=== PATIENT | female | born 1955 | race Caucasian/White ===

== ENCOUNTER → 2017-06-27 13:18 | Outpatient (CLI) | payer OTHER, SELFPAY ==
[2017-06-27 16:03] LABS: Hemoglobin A1c 8.1 % (4.2-6.3)
[2017-06-27 16:30] LABS: Anion Gap 10 (5-15); BUN 16 mg/dL (7-18); BUN/Creat Ratio 17.1 RATIO (10-20); Calcium,Total 8.9 mg/dL (8.5-10.1); Chloride 101 mmol/L (98-107); Creatinine, Serum 0.94 mg/dL (0.55-1.02); EST Glomerular Filtration Rate 64 mL/min (>60); Est Glom Filt Rate - Afr Amer 78 mL/min (>60); Glucose 192 mg/dL (70-110); Potassium 3.7 mmol/L (3.5-5.1); Sodium Level 137 mmol/L (136-145); T4 Free Direct 0.77 ng/dL (0.76-1.46); Thyroid Stim Hormone (TSH) 4.91 uIU/mL (0.358-3.74); Vitamin D,25 Hydroxy 28.5 ng/mL
== END ==
PROVIDERS: Family Provider Family Medicine; PCP Family Medicine; Visit Provider Family Medicine
DX: E55.9 Vitamin D deficiency, unspecified (principal); E03.9 Hypothyroidism, unspecified; R73.01 Impaired fasting glucose
CPT/HCPCS: 36415; 80048; 82306; 83036; 84439; 84443

== ENCOUNTER → 2017-09-03 08:34 | Outpatient (CLI) | payer OTHER, SELFPAY ==
[2017-09-03 12:53] LABS: T4 Free Direct 1.11 ng/dL (0.76-1.46); Thyroid Stim Hormone (TSH) 0.29 uIU/mL (0.358-3.74)
== END ==
PROVIDERS: Family Provider Family Medicine; PCP Family Medicine; Visit Provider Family Medicine
DX: E03.9 Hypothyroidism, unspecified (principal)
CPT/HCPCS: 36415; 84439; 84443

== ENCOUNTER → 2018-02-03 06:41 | Outpatient (CLI) | payer OTHER, SELFPAY ==
--- NOTE | 2018-02-03 12:24 | PFTCOMP ---
COMPLETE PULMONARY FUNCTION TEST INTERPRETATION Brief HPI: Patient is a 62 year old female, currently under the care of myself, who presents to [facility] for complete pulmonary function tests secondary to diagnosis of dyspnea. Respiratory therapist reports good effort and reproducible results. Interpretation: Forced expiration spirometry shows no large airways obstructive ventilatory defect with an FEV1 of 87% predicted. There is no significant bronchodilator response by strict ATS criteria. Spirograms are of good quality and plateau slowly, indicating slowly emptying areas of the lungs. The respiratory flow volume loop shows decreased expiratory flow rates at high lung volumes consistent with small airways obstruction. Lung volumes by body plethysmography show a normal total lung capacity at 4.49 L, 88% predicted. All other lung volumes are within normal limits. Diffusion capacity by carbon monoxide is normal at 74% predicted. The airway resistance is normal. Compared to previous pulmonary function tests from 10/18/2016, there has been no significant change. Impression: These pulmonary function tests are grossly within normal limits. There is some small airways obstruction that appears to be relieved by albuterol.
== END ==
PROVIDERS: Family Provider Family Medicine; PCP Family Medicine; Visit Provider Nurse Practitioner Acute Care
DX: R06.02 Shortness of breath (principal)
CPT/HCPCS: 94060; 94726; 94729

== ENCOUNTER → 2018-02-04 08:53 | Outpatient (CLI) | payer OTHER, SELFPAY ==
[2018-02-04 09:55] VITALS: PULSE 102; PULSE 79; PULSE 82; PULSE 93; PULSE 96; PULSE 98; PULSE 99; O2SAT 92; O2SAT 94; O2SAT 95; O2SAT 96; O2SAT 98
--- NOTE | 2018-02-04 11:11 | PCM.PSN.6M ---
PSN 6 Minute Walk Test - 6 Minute Walk Test 6 Minute Walk Test: 6 Minute Walk Test PSN:6-Minute Walk Test Start: 02/04/18 09:55 Freq: Status: Active Protocol: RESP.6MINW Document 02/04/18 09:55 ANNETTE (Rec: 02/04/18 09:58 ANNETTE [id number]) 6 Minute Walk Test Date Performed 02/04/18 Time Performed 09:05 Height 5 ft 4.5 in Weight: 92.079 kg Weight in Pounds 203.[address]: Angela Linton Assistive device used: None Pre-test Oxygen Delivery Method Room Air Pulse Ox (%) 96 Pulse Rate (60-100 beats/min) 79 Dyspnea Janet Scale (0-10) 0.5 Exertion Janet Scale (6-20) 6 1st minute Oxygen Delivery Method Room Air Pulse Ox (%) 94 Pulse Rate (60-100 beats/min) 93 2nd minute Oxygen Delivery Method Room Air Pulse Ox (%) 94 Pulse Rate (60-100 beats/min) 96 3rd minute Oxygen Delivery Method Room Air Pulse Ox (%) 92 Pulse Rate (60-100 beats/min) 98 4th minute Oxygen Delivery Method Room Air Pulse Ox (%) 92 Pulse Rate (60-100 beats/min) 99 5th minute Oxygen Delivery Method Room Air Pulse Ox (%) 94 Pulse Rate (60-100 beats/min) 102 H 6th minute Oxygen Delivery Method Room Air Pulse Ox (%) 95 Pulse Rate (60-100 beats/min) 102 H Dyspnea Janet Scale (0-10) 3 Exertion Janet Scale (6-20) 12 Post-test Oxygen Delivery Method Room Air Pulse Ox (%) 98 Pulse Rate (60-100 beats/min) 82 Full Laps Walked 17 Partial Lap, Number of Tiles Walked 32 Total Distance Walked (ft) 1035 - Interpretation Interpretation: The patient was able to ambulate 1035 feet over the course of 6 minutes on room air with no assistive devices or breaks. The patient did have significant desaturation from 96% at baseline to as low as 92%. No significant tachycardia was noted. - Recommendations Recommendations: No supplemental oxygen is indicated at this time.
== END ==
PROVIDERS: Family Provider Family Medicine; PCP Family Medicine; Visit Provider Nurse Practitioner Acute Care
DX: R06.02 Shortness of breath (principal)
CPT/HCPCS: 93306; 94618

== ENCOUNTER → 2018-04-20 10:06 | Outpatient (CLI) | payer OTHER, SELFPAY ==
[2018-04-20 12:43] LABS: Absolute Lymphocyte Count 1.78 X10^3/ul (0.83-4.51); Absolute Neutrophil Count 3.5 X10^3/uL (2.0-7.7); Basophil# 0.02 X10^3/uL; Basophil% 0.3 % (0-1); Eosinophil# 0.12 X10^3/uL; Hematocrit 41.4 % (37-47); Hemoglobin 13.6 g/dl (12.0-15.0); Lymphocyte # 1.78 X10^3/ul (4.0); Lymphocyte % 29.9 % (19-41); Mean Corp Hgb Conc 32.9 g/gl (32-36); Mean Corpuscular Hgb 30.7 pg (27.0-32.0); Mean Corpuscular Volume 93.5 fL (81-99); Mean Platelet Vol. 11.9 fl (6.2-12.0); Monocyte# 0.59 X10^3/uL; Monocyte% 9.9 % (0-10); Neutrophil # 3.45 X10^3/uL (2.7-7.7); Neutrophil % 57.9 % (47-70); Platelet Count 294 K/mm3 (150-450); RBC Distribution Width CV 12.7 % (11.6-14.6); RBC Distribution Width SD 42.6 fl (35.1-43.9); Red Blood Count 4.43 M/mm3 (4.2-5.4)
[2018-04-20 12:56] LABS: POSITIVE COUNT NO; POSITIVE DIFFERENTIAL NO; POSITIVE MORPHOLOGY NO
[2018-04-20 13:01] LABS: Vitamin D,25 Hydroxy 91.8 ng/mL (29.95-100.01)
[2018-04-20 13:02] LABS: Anion Gap 10 (5-15); BUN 21 mg/dL (7-18); Chloride 105 mmol/L (98-107); Creatinine, Serum 0.91 mg/dL (0.55-1.02); EST Glomerular Filtration Rate 66 mL/min (>60); Est Glom Filt Rate - Afr Amer 80 mL/min (>60); Glucose 103 mg/dL (74-106); Potassium 4.4 mmol/L (3.5-5.1); Sodium Level 142 mmol/L (136-145); T4 Free Direct 1.41 ng/dL (0.76-1.46); Thyroid Stim Hormone (TSH) < 0.01 uIU/mL (0.358-3.74)
== END ==
PROVIDERS: Family Provider Family Medicine; PCP Family Medicine; Visit Provider Family Medicine
DX: E11.9 Type 2 diabetes mellitus without complications (principal); E03.9 Hypothyroidism, unspecified; E55.9 Vitamin D deficiency, unspecified
CPT/HCPCS: 36415; 80048; 82306; 84439; 84443; 85025

== ENCOUNTER → 2018-06-08 08:13 | Outpatient (CLI) | payer OTHER, SELFPAY ==
[2018-06-08 12:23] LABS: Thyroid Stim Hormone (TSH) < 0.01 uIU/mL (0.358-3.74)
== END ==
PROVIDERS: Family Provider Family Medicine; PCP Family Medicine; Visit Provider Family Medicine
DX: E03.9 Hypothyroidism, unspecified (principal)
CPT/HCPCS: 36415; 84443

== ENCOUNTER → 2018-07-20 09:57 | Outpatient (CLI) | payer OTHER, SELFPAY ==
[2018-07-20 12:56] LABS: Vitamin D,25 Hydroxy 54.1 ng/mL (29.95-100.01)
[2018-07-20 13:21] LABS: Anion Gap 5 (5-15); BUN 16 mg/dL (7-18); BUN/Creat Ratio 15.2 RATIO (10-20); Chloride 105 mmol/L (98-107); Creatinine, Serum 1.05 mg/dL (0.55-1.02); EST Glomerular Filtration Rate 56 mL/min (>60); Est Glom Filt Rate - Afr Amer 68 mL/min (>60); Glucose 98 mg/dL (74-106); Potassium 4.2 mmol/L (3.5-5.1); Sodium Level 137 mmol/L (136-145); T4 Free Direct 0.85 ng/dL (0.76-1.46); Thyroid Stim Hormone (TSH) 0.29 uIU/mL (0.358-3.74)
== END ==
PROVIDERS: Family Provider Family Medicine; PCP Family Medicine; Visit Provider Family Medicine
DX: E03.9 Hypothyroidism, unspecified (principal); E11.9 Type 2 diabetes mellitus without complications; E55.9 Vitamin D deficiency, unspecified
CPT/HCPCS: 36415; 80048; 82306; 84439; 84443

== ENCOUNTER → 2018-11-24 14:19 | Outpatient (CLI) | payer OTHER, SELFPAY ==
[2018-08-03 08:28] VITALS: BMI 34.0
--- NOTE | 2018-11-24 14:22 | BI_ITS ---
MAMMOGRAPHY - BILATERAL SCREENING 3-D TOMOSYNTHESIS REASON FOR EXAM: Female, 63 years old. Bilateral Screening 3-D tomosynthesis PERTINENT HISTORY: No significant family history. TECHNIQUE: 2-D mammograms and 3-D Tomosynthesis of the breast (s) were performed. CAD was performed. COMPARISON: March 01, 2016, October 06, 2014 FINDINGS: The breast composition is composed of scattered fibroglandular density. Scattered benign calcifications are seen. No dense spiculated masses or suspicious microcalcifications are identified. No architectural distortion is identified. There is no skin thickening or retraction. There are stable lymph nodes. There has been no significant change since the prior study. BI/SCREEN MAMM (CAD) W/HENRRY BILAT IMPRESSION: No mammographic signs of malignancy. Routine yearly mammograms recommended. ASSESSMENT CATEGORY: BIRADS Category 2: Benign. A letter regarding these results will be sent to the patient by the facility within 30 days. FOLLOW UP RECOMMENDATION: Yearly follow up mammogram recommended. (A) Approximately 10% of breast cancers are not detected by mammography. A normal mammogram should not delay biopsy of a clinically suspicious abnormality. Electronically Signed: Herb Feliz MD at 17:44 EDT , Service support ,
== END ==
PROVIDERS: Family Provider Family Medicine; PCP Family Medicine; Referring Provider Family Medicine; Visit Provider Family Medicine
DX: Z12.31 Encounter for screening mammogram for malignant neoplasm of breast (principal)
CPT/HCPCS: 77063; 77067

== ENCOUNTER → 2019-03-08 20:07 | Outpatient (CLI) | payer OTHER, SELFPAY ==
[2019-02-08 10:01] VITALS: BMI 34.0
== END ==
PROVIDERS: Family Provider Family Medicine; PCP Family Medicine; Referring Provider Internal Medicine Critical Care Medicine; Visit Provider Internal Medicine Critical Care Medicine
DX: G47.33 Obstructive sleep apnea (adult) (pediatric) (principal)
CPT/HCPCS: 95811

== ENCOUNTER → 2019-04-05 10:37 | Outpatient (CLI) | payer OTHER, SELFPAY ==
[2019-02-08 10:01] VITALS: BMI 34.0
== END ==
PROVIDERS: Family Provider Family Medicine; PCP Family Medicine; Referring Provider Nurse Practitioner Acute Care; Visit Provider Nurse Practitioner Acute Care
DX: Z46.89 Encounter for fitting and adjustment of other specified devices (principal)

== ENCOUNTER → 2019-08-10 09:42 | Outpatient (CLI) | payer OTHER, SELFPAY ==
[2019-05-10 07:39] VITALS: BMI 34.0
[2019-08-10 12:28] LABS: Absolute Lymphocyte Count 1.72 X10^3/uL (0.83-4.51); Absolute Neutrophil Count 3.7 X10^3/uL (2.0-7.7); Basophil# 0.04 X10^3/uL; Basophil% 0.7 % (0-1); Eosinophil# 0.14 X10^3/uL; Eosinophils% 2.3 % (0-5); Hematocrit 40.3 % (37-47); Hemoglobin 12.9 g/dL (12.0-15.0); Lymphocyte # 1.72 X10^3/ul (4.0); Lymphocyte % 28.2 % (19-41); Mean Corpuscular Hgb 30.9 pg (27.0-32.0); Mean Corpuscular Volume 96.4 fL (81-99); Mean Platelet Vol. 11.2 fl (6.2-12.0); Monocyte% 8.2 % (0-10); NRBC Flagged by Analyzer 0 % (0-5); Neutrophil # 3.68 X10^3/uL (2.7-7.7); Neutrophil % 60.3 % (47-70); Platelet Count 289 K/mm3 (150-450); RBC Distribution Width CV 12.7 % (11.6-14.6); RBC Distribution Width SD 45.3 fl (35.1-43.9); Red Blood Count 4.18 M/mm3 (4.2-5.4); White Blood Count 6.1 K/mm3 (4.4-11.0)
[2019-08-10 12:40] LABS: ALB/GLOB Ratio 1.1 RATIO (0.9-2.4); AST(SGOT) 13 U/L (15-37); Alanine Aminotransfer ALT/SGPT 24 U/L (13-56); Albumin, Serum 3.9 g/dL (3.2-5.0); Alkaline Phosphatase 86 U/L (45-117); Anion Gap 4 (5-15); BUN 16 mg/dL (7-18); BUN/Creat Ratio 16.9 RATIO (10-20); Calcium,Total 8.9 mg/dL (8.5-10.1); Chloride 105 mmol/L (98-107); Creatinine, Serum 0.95 mg/dL (0.55-1.02); EST Glomerular Filtration Rate 63 mL/min (>60); Est Glom Filt Rate - Afr Amer 76 mL/min (>60); Globulin 3.5 g/dL (2.2-4.2); Glucose 108 mg/dL (74-106); Potassium 4.1 mmol/L (3.5-5.1); Protein, Total 7.4 g/dL (6.4-8.2); Sodium Level 139 mmol/L (136-145); Thyroid Stim Hormone (TSH) 3.02 uIU/mL (0.358-3.74)
== END ==
PROVIDERS: PCP Family Medicine; Visit Provider Family Medicine
DX: E03.9 Hypothyroidism, unspecified (principal); E55.9 Vitamin D deficiency, unspecified; E78.5 Hyperlipidemia, unspecified; M85.80 Other specified disorders of bone density and structure, unspecified site
CPT/HCPCS: 36415; 80053; 82306; 84443; 85025

== ENCOUNTER → 2019-10-26 14:55 | Outpatient (CLI) | payer MEDICARE, SELFPAY ==
[2019-09-07 06:07] VITALS: BMI 34.0
[2019-10-26 14:13] VITALS: BMI 35.6
--- NOTE | 2019-10-26 14:56 | CT_ITS ---
STUDY: LOW DOSE CT LUNG CANCER SCREENING REASON FOR EXAM: Female, 64 years old. 62 PACK YEAR FORMER SMOKER. COPD. 1PPD X 47 YEARS RADIATION DOSAGE (If Supplied By Facility): CTDIvol = ( 3.40 ) mGy, DLP = ( 108.06 ) mGycm TECHNIQUE: No contrast was administered. Low dose technique was utilized (average mAS-38 and kVp 120). 1.25 mm axial source images with a slice interval of 1.25-mm were reconstructed in lung windows. 2.5 mm axial source images with a slice interval of 2.5-mm were reconstructed in lung windows. 5.0 mm axial source images with a slice interval of 5.0-mm were reconstructed in soft tissue windows. Nodule measured using lung windows on PACS and/or independent workstation with automated measurement of minimum and maximum diameter. Nodule measurement reported as average diameter rounded to the nearest whole number. Growth is defined as an increase ins size of greater than 1.5 mm. COMPARISON: None. NODULES: No suspicious nodules are seen. Emphysema: There is evidence of scarring at the lung apices. Increased linear markings are seen in the anterior aspect of the left upper lobe suggestive of scarring. Increased markings are also seen at the lung bases in keeping with interstitial scarring. Linear scarring is also seen in the medial aspect of the right middle lobe. Endobronchial lesion: None. Small amount of secretions are seen in the trachea. Aorta: Focal atherosclerotic plaque calcification of the aortic arch. Coronary arteries: Unremarkable. Heart: Unremarkable. Pulmonary artery: Unremarkable. Mediastinal nodes: Small mediastinal lymph nodes. Other chest and abdominal findings: Degenerative changes of the thoracic vertebrae. CT/Low Dose CT Lung Screening IMPRESSION: Lung-RADS category 2 - Continue annual screening with LDCT in 12 months. IMPORTANT NOTES FOR USE: ACR Lung-RADS Version 1.0 Assessment Categories Release Date: September 27, 2013 Category: Coded 0-4 bases on nodule(s) with highest degree of suspicion. Negative screen is defined as categories 1 and 2; a positive screen is defined as categories 3 and 4. Category 3 and 4A nodules that are unchanged on interval CT should be coded as category 2, and individuals returned to screening in 12 months. Category 4X: Category 3 or 4 nodules with additional imaging findings that increase the suspicion of lung cancer, such as spiculation, GGN that doubles in size in 1 year, enlarged lymph notes, etc. Category Modifiers: S (significant finding unrelated to lung cancer) and C (prior history of treated lung cancer) may be added to the 0-4 Lung-RADS Electronically Signed: Galileo Carias, at 15:23 EDT , Service support ,
== END ==
PROVIDERS: PCP Family Medicine; Referring Provider Nurse Practitioner Family; Visit Provider Nurse Practitioner Family
DX: Z12.2 Encounter for screening for malignant neoplasm of respiratory organs (principal); Z87.891 Personal history of nicotine dependence
CPT/HCPCS: G0297

== ENCOUNTER → 2020-02-08 06:57 | Outpatient (CLI) | payer MEDICARE, OTHER, SELFPAY ==
[2019-09-07 06:07] VITALS: BMI 34.0
[2019-10-26 14:13] VITALS: BMI 35.6
--- NOTE | 2020-02-08 13:44 | PFT ---
INTRODUCTION: The patient is a 64-year-old female that presents for pulmonary function studies secondary to a diagnosis of COPD. Respiratory therapy reported good patient effort. Bronchodilators were used during testing. INTERPRETATION: Forced expiration spirometry demonstrates no evidence of a large airways obstructive ventilatory defect. There was no significant response to aerosolized bronchodilators. Spirograms are of good quality and plateau normally. Body plethysmography was performed and revealed an elevated RV to 147% of predicted. Diffusing capacity by single breath CO is at the lower limits of normal. IMPRESSION: Subtle stigmata of small airways disease with associated air trapping.
== END ==
PROVIDERS: PCP Family Medicine; Referring Provider Internal Medicine Critical Care Medicine; Visit Provider Internal Medicine Critical Care Medicine
DX: J44.9 Chronic obstructive pulmonary disease, unspecified (principal)
CPT/HCPCS: 94060; 94726; 94729

== ENCOUNTER → 2020-02-15 07:57 | Outpatient (CLI) | payer MEDICARE, OTHER, SELFPAY ==
[2019-09-07 06:07] VITALS: BMI 34.0
[2019-10-26 14:13] VITALS: BMI 35.6
[2020-02-15 08:15] VITALS: PULSE 65; PULSE 70; PULSE 81; PULSE 83; PULSE 84; PULSE 85; O2SAT 93; O2SAT 94; O2SAT 95; O2SAT 96; O2SAT 98
--- NOTE | 2020-02-15 14:24 | PCM.PSN.6M ---
PSN 6 Minute Walk Test - 6 Minute Walk Test 6 Minute Walk Test: 6 Minute Walk Test PSN:6-Minute Walk Test Start: 02/15/20 08:15 Freq: Status: Active Protocol: RESP.6MINW Document 02/15/20 08:15 HJ (Rec: 02/15/20 08:18 [id number]) 6 Minute Walk Test Date Performed 02/15/20 Time Performed 08:15 Height 5 ft 5 in Weight: 96.162 kg Weight in Pounds 212.[address]: Wood Gillespie FIO2 (% Oxygen) 21 Assistive device used: None Pre-test Oxygen Delivery Method Room Air Pulse Ox (%) 96 Pulse Rate (60-100 beats/min) 65 Dyspnea Janet Scale (0-10) 0 Exertion Janet Scale (6-20) 6 1st minute Oxygen Delivery Method Room Air Pulse Ox (%) 93 Pulse Rate (60-100 beats/min) 81 2nd minute Oxygen Delivery Method Room Air Pulse Ox (%) 96 Pulse Rate (60-100 beats/min) 83 3rd minute Oxygen Delivery Method Room Air Pulse Ox (%) 93 Pulse Rate (60-100 beats/min) 85 4th minute Oxygen Delivery Method Room Air Pulse Ox (%) 95 Pulse Rate (60-100 beats/min) 84 5th minute Oxygen Delivery Method Room Air Pulse Ox (%) 95 Pulse Rate (60-100 beats/min) 85 6th minute Oxygen Delivery Method Room Air Pulse Ox (%) 94 Pulse Rate (60-100 beats/min) 85 Post-test Oxygen Delivery Method Room Air Pulse Ox (%) 98 Pulse Rate (60-100 beats/min) 70 Dyspnea Janet Scale (0-10) 1 Exertion Janet Scale (6-20) 11 Full Laps Walked 16 Partial Lap, Number of Tiles Walked 0 Total Distance Walked (ft) 944 - Interpretation Interpretation: The patient was able to ambulate 944 feet over the course of 6 minutes on room air with no assistive devices or breaks. Patient experienced an oxygen bernard of 93% with no significant tachycardia. These findings are consistent with a musculoskeletal limitation exercise tolerance. - Recommendations Recommendations: No supplemental oxygen is indicated at this time.
== END ==
PROVIDERS: PCP Family Medicine; Referring Provider Internal Medicine Critical Care Medicine; Visit Provider Internal Medicine Critical Care Medicine
DX: J44.9 Chronic obstructive pulmonary disease, unspecified (principal)
CPT/HCPCS: 94618

== ENCOUNTER 2020-06-09 07:29 | Day surgery (SDC) | payer MEDICARE, OTHER, SELFPAY ==
[2020-05-22 13:53] VITALS: BMI 35.8
--- NOTE | 2020-06-09 07:36 | HP_ITS ---
Intake Vital Signs 05/22/20 Height 5 ft 5 in 05/22/20 Weight: 215 lb 7 oz 05/22/20 BP 129/81 H 05/22/20 Blood Pressure Location Rt brachial 05/22/20 Position Sitting 05/22/20 Respiration 18 05/22/20 Pulse 70 05/22/20 Pulse Source NIBP 05/22/20 Temp 97.5 F L 05/22/20 Temp Source Temporal 05/22/20 Pulse Oximetry (%) 99 05/22/20 Oxygen Delivery Method room air Intake Visit Reasons: C-Scope & Hernia Chief Complaint: SCREENING C-SCOPE/ UMB HERNIA Packager Head Required: No Is patient in pain?: No Allergies SHINGLES VACCINE Allergy (Uncoded 03/13/20 09:41) Rash Medications Albuterol Sulfate [Proair Hfa] 8.5 gm PO PRN PRN 11/25/13 [History Confirmed 05/22/20] Duloxetine HCl 60 mg PO DAILY 11/25/13 [History Confirmed 05/22/20] Lovastatin 40 mg PO DAILY 11/25/13 [History Confirmed 05/22/20] albuterol sulfate 90 mcg/actuation aerosol inhaler 2 puff INHALATION Q6H #18 g 03/01/19 [Rx Confirmed 05/22/20] cholecalciferol (vitamin D3) 125 mcg (5,000 unit) capsule 5,000 unit PO QWEEK cap 10/26/19 [History Confirmed 05/22/20] levothyroxine 75 mcg tablet 75 mcg PO DAILY 30 Days #30 tab 10/26/19 [History Confirmed 05/22/20] fluticasone fur. 100 mcg-umeclid 62.5 mcg-vilant 25 mcg inhalat.powder 1 inh INHALATION DAILY #60 ea 03/13/20 [Rx Confirmed 05/22/20] Is last menstrual period known: No Post menopausal: Yes Patient : No PFSH Medical History Primary fibromyalgia syndrome (Chronic) Chondromalacia (Chronic) Chronic obstructive lung disease (Chronic) Depression (Chronic) Hyperlipidemia (Chronic) Vitamin D deficiency (Chronic) Hypothyroidism (Chronic) Localized swelling, mass and lump, unspecified (Chronic) MARTELL (obstructive sleep apnea) (Chronic) Dyspnea (Chronic) Right ankle pain (Acute) Surgical History History of cataract extraction (Resolved) Family History Mother Heart disease CVA (cerebral vascular accident) Brain tumor Father Cancer Stomach Heart disease Social History (Updated 05/22/20 @ 14:[address] Nicola Prabhakar MD) Smoking Status: Former smoker quit date: 06/02/16 pack-years: 63 Tobacco: How many years used: 42 Electronic Cigarette Use: not used how long ago did patient quit smokin years second hand exposure: Yes quit status: quit date established counseling given: provider counseling alcohol intake: never substance use type: does not use HPI HPI HPI: ANDREA CALIX, is a 64 F who presents to the office today for HPI HPI Surgical H&P: Yes HPI: ANDREA CALIX, is a 64 F who presents to the office today for Screening colonoscopy. The patient has never had a screening colonoscopy in the past. The patient reports no abdominal pain or blood in her stool. She has no family history of colon cancer. She attempted a Cologuard once but was unable to complete it. The patient also has an umbilical hernia was she has noted for the past few months. She says it does bother her sometimes. ROS General General: No weight change, appetite, fatigue, colon cancer, breast cancer or weakness HEENT HEENT: No difficulty swallowing, eye injury, eye surgery, swollen glands or hoarseness Endo Endocrine: Yes thyroid disease; no diabetes mellitus, thyroid cancer, Hair loss, heat intolerance or cold intolerance Musc Musculoskeletal: No back problems, arthritis, rheumatoid arthritis, gout or joint pain Cardio Cardiovascular: Yes atrial fibrillation; no murmur, pacemaker, heart disease, high blood pressure, heart attack, heart stent, palpitations, shortness of breat with exertion or chest pain Psych Psychiatric: Yes depression; no anxiety or hearing voices Resp Respiratory: Yes shortness of breath, Yes sleep apnea, No cough, Yes COPD, No asthma, No emphysema, No wheezing Gastro Gastrointestinal: No abdominal pain, No nausea or vomiting, No diarrhea, No constipation, No blood in stool, No acid reflux, Yes hemorrhoids, No ulcers, No gallbladder problem, No black,tarry stools [place] Hematologic: No blood thinners, No blood disorders, No bleeding, No anemia, No blood clots Neuro Neurologic: No weakness Exam Const General: cooperative Orientation: alert, oriented x3 Resp Effort & Inspection: normal respiratory effort Auscultation: clear to auscultation bilaterally Cardio Rate: regular rate Rhythm: regular rhythm Heart Sounds: no murmurs GI Inspection: non-distended Palpation: soft, hernia umbilical, nontender Assessment & Plan Problems 1. Screen for colon cancer Z12.11 2. Umbilical hernia without obstruction and without gangrene K42.9 Plan The patient has never had a screening colonoscopy and she is due. I will schedule her for screening colonoscopy. I explained endoscopy in detail to the patient. I explained the risks including but not limited to stroke or heart attack with anesthesia, perforation of the GI tract, bleeding, infection. I explained that any of these could necessitate further emergency surgery. The patient understands and all questions were answered sufficiently. The patient wishes to proceed with procedure. Patient also has a small umbilical hernia and I discussed umbilical hernia repair with her. I discussed the risks of bleeding, infection, injury to underlying organs. The patient understands the risks and is considering having her umbilical hernia repaired. Nicola Prabhakar MD Pager: [facility] [address] [place] [address], [address] [place] [address] Office: Orders Orders: Colonoscopy Today Z12.11 Coding Level of Care Code Off vis,new,level 3 Diagnoses Screen for colon cancer Z12.11 Umbilical hernia without obstruction and without gangrene K42.9 ??Obstruction and gangrene presence: without obstruction or gangrene I have re-examined the patient. There are no clinical changes since date of exam.
[2020-06-09 08:02] VITALS: BP 122/69; PULSE 55; RESP 16; TEMP 36.3; O2SAT 99; BMI 34.7
[2020-06-09] MEDS: Lactated Ringers 1,000 ML 100 ML IV (08:25)
--- NOTE | 2020-06-09 09:00 | OP.CCLET_ITS ---
06/09/2020 Fco Mccarthy Re : Colonoscopy procedure for Leeanna Ramirez Dear Shari This procedure was performed on Tuesday, June 09, 2020. My impressions and recommendations are as follows: Impressions : - Preparation of the colon was inadequate. - No specimens collected. Recommendations : - Discharge patient to home. - Resume previous diet. - Continue present medications. - Repeat colonoscopy in 2 weeks because the bowel preparation was poor. My findings are described in the full procedure note, which is enclosed. If I can be of further assistance, please feel free to contact me at Doctor phone number(s): , Work: . Sincerely, Nicola Prabhakar MD 06/09/2020 9:00:02 AM This report has been signed electronically.
--- NOTE | 2020-06-09 09:00 | OP.COLON_ITS ---
Patient Name: Leeanna Ramirez Procedure Date: 06/09/2020 8:29 AM Date of : 1955 Age: 64 Procedure: Colonoscopy Indications: Screening for colorectal malignant neoplasm Providers: Nicola Prabhakar MD Referring MD: Fco Mccarthy Medicines: Monitored Anesthesia Care Patient Profile: This is a 64 year old female. Refer to note in patient chart for documentation of history and physical. Last Colonoscopy: 10 years ago. Complications: No immediate complications. Procedure: Pre-Anesthesia Assessment: - Prior to the procedure, a History and Physical was performed, and patient medications and allergies were reviewed. The patient's tolerance of previous anesthesia was also reviewed. The risks and benefits of the procedure and the sedation options and risks were discussed with the patient. All questions were answered, and informed consent was obtained. Prior Anticoagulants: The patient has taken no previous anticoagulant or antiplatelet agents. After reviewing the risks and benefits, the patient was deemed in satisfactory condition to undergo the procedure. After I obtained informed consent, the scope was passed under direct vision. Throughout the procedure, the patient's blood pressure, pulse, and oxygen saturations were monitored continuously. The pediatric colonoscope was introduced through the anus with the intention of advancing to the cecum. The scope was advanced to the transverse colon before the procedure was aborted. Medications were not given. The colonoscopy was performed without difficulty. The patient tolerated the procedure well. The quality of the bowel preparation was inadequate. Scope In: 8:45:36 AM Scope Out: 8:55:40 AM Total Procedure Duration Time 0 hours 10 minutes 4 seconds Findings: Impression: - Preparation of the colon was inadequate. - No specimens collected. Recommendation: - Discharge patient to home. - Resume previous diet. - Continue present medications. - Repeat colonoscopy in 2 weeks because the bowel preparation was poor. Procedure Code(s): --- Professional --- 37159, 53, Colonoscopy, flexible; diagnostic, including collection of specimen(s) by brushing or washing, when performed (separate procedure) Diagnosis Code(s): --- Professional --- Z12.11, Encounter for screening for malignant neoplasm of colon CPT copyright 2017 [employer]. All rights reserved. The codes documented in this report are preliminary and upon supervisor rough end review may be revised to meet current compliance requirements. Nicola Prabhakar MD 06/09/2020 9:00:02 AM This report has been signed electronically. Number of Addenda: 0 Note Initiated On: 06/09/2020 8:29 AM
[2020-06-09 09:03] VITALS: BP 122/69; BP 93/65; PULSE 55; RESP 16; TEMP 36.4; O2SAT 100
[2020-06-09 09:10] VITALS: BP 122/69; BP 99/64; PULSE 54; RESP 16; O2SAT 100
[2020-06-09 09:15] VITALS: BP 122/69; BP 98/64; PULSE 54; RESP 16; O2SAT 100
[2020-06-09 09:19] VITALS: BP 101/67; BP 122/69; PULSE 54; RESP 16; TEMP 36.1; O2SAT 98
[2020-06-09 09:44] VITALS: BP 122/69
== END 2020-06-09 09:56 | disposition home or self-care (01) ==
LOC: EN 07:31 → AC 07:32
PROVIDERS: PCP Family Medicine; Referring Provider Family Medicine; Visit Provider Surgery
PROC: 0DJD8ZZ Inspection of Lower Intestinal Tract, Via Natural or Artificial Opening Endoscopic (ICD-10-PCS; CPT 45378; principal; 2020-06-09 08:40)
DX: Z12.11 Encounter for screening for malignant neoplasm of colon (principal); K42.9 Umbilical hernia without obstruction or gangrene; J44.9 Chronic obstructive pulmonary disease, unspecified; E78.00 Pure hypercholesterolemia, unspecified; E03.9 Hypothyroidism, unspecified; E55.9 Vitamin D deficiency, unspecified; G47.33 Obstructive sleep apnea (adult) (pediatric); Z79.899 Other long term (current) drug therapy; Z87.891 Personal history of nicotine dependence; Z20.822 Contact with and (suspected) exposure to COVID-19
CPT/HCPCS: G0121; 87426; C9803; J7120; J2405

== ENCOUNTER 2020-06-23 06:41 | Day surgery (SDC) | payer MEDICARE, OTHER, SELFPAY ==
--- NOTE | 2020-06-23 07:02 | HP_ITS ---
Intake Vital Signs 05/22/20 Height 5 ft 5 in 05/22/20 Weight: 215 lb 7 oz 05/22/20 BP 129/81 H 05/22/20 Blood Pressure Location Rt brachial 05/22/20 Position Sitting 05/22/20 Respiration 18 05/22/20 Pulse 70 05/22/20 Pulse Source NIBP 05/22/20 Temp 97.5 F L 05/22/20 Temp Source Temporal 05/22/20 Pulse Oximetry (%) 99 05/22/20 Oxygen Delivery Method room air Intake Visit Reasons: C-Scope & Hernia Chief Complaint: SCREENING C-SCOPE/ UMB HERNIA Chief Legal Officer Required: No Is patient in pain?: No Allergies SHINGLES VACCINE Allergy (Uncoded 03/13/20 09:41) Rash Medications Albuterol Sulfate [Proair Hfa] 8.5 gm PO PRN PRN 11/25/13 [History Confirmed 05/22/20] Duloxetine HCl 60 mg PO DAILY 11/25/13 [History Confirmed 05/22/20] Lovastatin 40 mg PO DAILY 11/25/13 [History Confirmed 05/22/20] albuterol sulfate 90 mcg/actuation aerosol inhaler 2 puff INHALATION Q6H #18 g 03/01/19 [Rx Confirmed 05/22/20] cholecalciferol (vitamin D3) 125 mcg (5,000 unit) capsule 5,000 unit PO QWEEK cap 10/26/19 [History Confirmed 05/22/20] levothyroxine 75 mcg tablet 75 mcg PO DAILY 30 Days #30 tab 10/26/19 [History Confirmed 05/22/20] fluticasone fur. 100 mcg-umeclid 62.5 mcg-vilant 25 mcg inhalat.powder 1 inh INHALATION DAILY #60 ea 03/13/20 [Rx Confirmed 05/22/20] Is last menstrual period known: No Post menopausal: Yes Patient : No PFSH Medical History Primary fibromyalgia syndrome (Chronic) Chondromalacia (Chronic) Chronic obstructive lung disease (Chronic) Depression (Chronic) Hyperlipidemia (Chronic) Vitamin D deficiency (Chronic) Hypothyroidism (Chronic) Localized swelling, mass and lump, unspecified (Chronic) MARTELL (obstructive sleep apnea) (Chronic) Dyspnea (Chronic) Right ankle pain (Acute) Surgical History History of cataract extraction (Resolved) Family History Mother Heart disease CVA (cerebral vascular accident) Brain tumor Father Cancer Stomach Heart disease Social History (Updated 05/22/20 @ 14:[address] Nicola Prabhakar MD) Smoking Status: Former smoker quit date: 06/02/16 pack-years: 63 Tobacco: How many years used: 42 Electronic Cigarette Use: not used how long ago did patient quit smokin years second hand exposure: Yes quit status: quit date established counseling given: provider counseling alcohol intake: never substance use type: does not use HPI HPI HPI: ANDREA CALIX, is a 64 F who presents to the office today for HPI HPI Surgical H&P: Yes HPI: ANDREA CALIX, is a 64 F who presents to the office today for Screening colonoscopy. The patient has never had a screening colonoscopy in the past. The patient reports no abdominal pain or blood in her stool. She has no family history of colon cancer. She attempted a Cologuard once but was unable to complete it. The patient also has an umbilical hernia was she has noted for the past few months. She says it does bother her sometimes. ROS General General: No weight change, appetite, fatigue, colon cancer, breast cancer or weakness HEENT HEENT: No difficulty swallowing, eye injury, eye surgery, swollen glands or hoarseness Endo Endocrine: Yes thyroid disease; no diabetes mellitus, thyroid cancer, Hair loss, heat intolerance or cold intolerance Musc Musculoskeletal: No back problems, arthritis, rheumatoid arthritis, gout or joint pain Cardio Cardiovascular: Yes atrial fibrillation; no murmur, pacemaker, heart disease, high blood pressure, heart attack, heart stent, palpitations, shortness of breat with exertion or chest pain Psych Psychiatric: Yes depression; no anxiety or hearing voices Resp Respiratory: Yes shortness of breath, Yes sleep apnea, No cough, Yes COPD, No asthma, No emphysema, No wheezing Gastro Gastrointestinal: No abdominal pain, No nausea or vomiting, No diarrhea, No constipation, No blood in stool, No acid reflux, Yes hemorrhoids, No ulcers, No gallbladder problem, No black,tarry stools [place] Hematologic: No blood thinners, No blood disorders, No bleeding, No anemia, No blood clots Neuro Neurologic: No weakness Exam Const General: cooperative Orientation: alert, oriented x3 Resp Effort & Inspection: normal respiratory effort Auscultation: clear to auscultation bilaterally Cardio Rate: regular rate Rhythm: regular rhythm Heart Sounds: no murmurs GI Inspection: non-distended Palpation: soft, hernia umbilical, nontender Assessment & Plan Problems 1. Screen for colon cancer Z12.11 2. Umbilical hernia without obstruction and without gangrene K42.9 Plan The patient has never had a screening colonoscopy and she is due. I will schedule her for screening colonoscopy. I explained endoscopy in detail to the patient. I explained the risks including but not limited to stroke or heart attack with anesthesia, perforation of the GI tract, bleeding, infection. I explained that any of these could necessitate further emergency surgery. The patient understands and all questions were answered sufficiently. The patient wishes to proceed with procedure. Patient also has a small umbilical hernia and I discussed umbilical hernia repair with her. I discussed the risks of bleeding, infection, injury to underlying organs. The patient understands the risks and is considering having her umbilical hernia repaired. Nicola Prabhakar MD Pager: [facility] [address] [place] [address], [address] [place] [address] Office: Orders Orders: Colonoscopy Today Z12.11 Coding Level of Care Code Off vis,new,level 3 Diagnoses Screen for colon cancer Z12.11 Umbilical hernia without obstruction and without gangrene K42.9 ??Obstruction and gangrene presence: without obstruction or gangrene I have re-examined the patient. There are no clinical changes since date of exam.
[2020-06-23 07:20] VITALS: BP 127/82; PULSE 61; RESP 16; TEMP 37.1; O2SAT 99; BMI 34.2
[2020-06-23] MEDS: Lactated Ringers 1,000 ML 100 ML IV (07:32)
[2020-06-23 08:24] VITALS: BP 104/67; BP 127/82; PULSE 63; RESP 18; TEMP 36.4; O2SAT 99
--- NOTE | 2020-06-23 08:24 | OP.COLON_ITS ---
Patient Name: Leeanna Ramirez Procedure Date: 06/23/2020 7:51 AM Date of : 1955 Age: 64 Procedure: Colonoscopy Indications: Screening for colorectal malignant neoplasm Providers: Nicola Prabhakar MD Referring MD: Fco Mccarthy Medicines: Monitored Anesthesia Care Patient Profile: This is a 64 year old female. Refer to note in patient chart for documentation of history and physical. Last Colonoscopy: none. The patient's first colonoscopy is today. Complications: No immediate complications. Procedure: Pre-Anesthesia Assessment: - Prior to the procedure, a History and Physical was performed, and patient medications and allergies were reviewed. The patient's tolerance of previous anesthesia was also reviewed. The risks and benefits of the procedure and the sedation options and risks were discussed with the patient. All questions were answered, and informed consent was obtained. Prior Anticoagulants: The patient has taken no previous anticoagulant or antiplatelet agents. After reviewing the risks and benefits, the patient was deemed in satisfactory condition to undergo the procedure. After I obtained informed consent, the scope was passed under direct vision. Throughout the procedure, the patient's blood pressure, pulse, and oxygen saturations were monitored continuously. The colonoscope was introduced through the anus and advanced to the cecum, identified by appendiceal orifice and ileocecal valve. The colonoscopy was performed without difficulty. The patient tolerated the procedure well. The quality of the bowel preparation was good. Scope In: 8:02:13 AM Scope Withdrawal Time 0 hours 6 minutes 4 seconds Scope Out: 8:20:51 AM Total Procedure Duration Time 0 hours 18 minutes 38 seconds Findings: The entire examined colon appeared normal on direct and retroflexion views. Impression: - The entire examined colon is normal on direct and retroflexion views. - No specimens collected. Recommendation: - Discharge patient to home. - Resume previous diet. - Continue present medications. - Repeat colonoscopy in 10 years for screening purposes. Procedure Code(s): --- Professional --- 13373, Colonoscopy, flexible; diagnostic, including collection of specimen(s) by brushing or washing, when performed (separate procedure) Diagnosis Code(s): --- Professional --- Z12.11, Encounter for screening for malignant neoplasm of colon CPT copyright 2017 [employer] [place] [employer]. All rights reserved. The codes documented in this report are preliminary and upon bulk truck driver review may be revised to meet current compliance requirements. Nicola Prabhakar MD 06/23/2020 8:24:05 AM This report has been signed electronically. Number of Addenda: 0 Note Initiated On: 06/23/2020 7:51 AM
--- NOTE | 2020-06-23 08:24 | OP.CCLET_ITS ---
06/23/2020 Fco Mccarthy Re : Colonoscopy procedure for Leeanna Ramirez Dear Shari This procedure was performed on Tuesday, June 23, 2020. My impressions and recommendations are as follows: Impressions : - The entire examined colon is normal on direct and retroflexion views. - No specimens collected. Recommendations : - Discharge patient to home. - Resume previous diet. - Continue present medications. - Repeat colonoscopy in 10 years for screening purposes. My findings are described in the full procedure note, which is enclosed. If I can be of further assistance, please feel free to contact me at Doctor phone number(s): , Work: . Sincerely, Nicola Prabhakar MD 06/23/2020 8:24:05 AM This report has been signed electronically.
[2020-06-23 08:25] VITALS: BP 127/82; BP 97/65; PULSE 60; RESP 18; O2SAT 97
[2020-06-23 08:30] VITALS: BP 104/67; BP 127/82; PULSE 66; RESP 18; O2SAT 100
[2020-06-23 08:35] VITALS: BP 110/71; BP 127/82; PULSE 64; RESP 18; O2SAT 97
[2020-06-23 08:40] VITALS: BP 105/82; BP 127/82; PULSE 59; RESP 18; TEMP 36.3; O2SAT 100
== END 2020-06-23 09:00 | disposition home or self-care (01) ==
LOC: EN 06:41 → AC 06:42
PROVIDERS: PCP Family Medicine; Referring Provider Family Medicine; Visit Provider Surgery
PROC: 0DJD8ZZ Inspection of Lower Intestinal Tract, Via Natural or Artificial Opening Endoscopic (ICD-10-PCS; CPT 45378; principal; 2020-06-23 07:55)
DX: Z12.11 Encounter for screening for malignant neoplasm of colon (principal); Z20.828 Contact with and (suspected) exposure to other viral communicable diseases; M79.7 Fibromyalgia; E03.9 Hypothyroidism, unspecified; F32.9 Major depressive disorder, single episode, unspecified; J44.9 Chronic obstructive pulmonary disease, unspecified; E55.9 Vitamin D deficiency, unspecified; G47.33 Obstructive sleep apnea (adult) (pediatric); Z87.891 Personal history of nicotine dependence; K42.9 Umbilical hernia without obstruction or gangrene; Z79.899 Other long term (current) drug therapy; E78.00 Pure hypercholesterolemia, unspecified
CPT/HCPCS: G0121; 87426; C9803; J7120; J2405

== ENCOUNTER → 2020-08-19 09:44 | Outpatient (CLI) | payer MEDICARE, OTHER, SELFPAY ==
[2020-08-19 10:59] LABS: Absolute Neutrophil Count 3.7 X10^3/uL (2.0-7.7); Basophil# 0.05 X10^3/uL; Basophil% 0.8 % (0-1); Eosinophil# 0.15 X10^3/uL; Eosinophils% 2.5 % (0-5); Hematocrit 41.2 % (37-47); Hemoglobin 12.7 g/dL (12.0-15.0); Lymphocyte % 26.7 % (19-41); Mean Corp Hgb Conc 30.8 g/dL (32-36); Mean Corpuscular Volume 97.2 fL (81-99); Mean Platelet Vol. 11.2 fl (6.2-12.0); Monocyte# 0.47 X10^3/uL; Monocyte% 7.8 % (0-10); NRBC Flagged by Analyzer 0 % (0-5); Neutrophil # 3.71 X10^3/uL (2.7-7.7); Neutrophil % 61.9 % (47-70); Platelet Count 286 K/mm3 (150-450); RBC Distribution Width CV 12.7 % (11.6-14.6); RBC Distribution Width SD 45.4 fl (35.1-43.9); Red Blood Count 4.24 M/mm3 (4.2-5.4)
[2020-08-19 11:33] LABS: Anion Gap 3 (5-15); BUN 13 mg/dL (7-18); Calcium,Total 9.1 mg/dL (8.5-10.1); Chloride 107 mmol/L (98-107); Creatinine, Serum 0.87 mg/dL (0.55-1.02); EST Glomerular Filtration Rate 69 mL/min (>60); Est Glom Filt Rate - Afr Amer 84 mL/min (>60); Glucose 105 mg/dL (74-106); Potassium 4.1 mmol/L (3.5-5.1); Sodium Level 140 mmol/L (136-145); Thyroid Stim Hormone (TSH) 1.85 uIU/mL (0.358-3.74)
[2020-08-21 09:32] LABS: Vitamin D,25 Hydroxy 31.7 ng/mL
== END ==
PROVIDERS: PCP Family Medicine; Referring Provider Family Medicine; Visit Provider Family Medicine
DX: E78.5 Hyperlipidemia, unspecified (principal); E55.9 Vitamin D deficiency, unspecified; M85.80 Other specified disorders of bone density and structure, unspecified site
CPT/HCPCS: 36415; 80048; 82306; 84443; 85025

== ENCOUNTER → 2020-08-22 14:45 | Outpatient (CLI) | payer MEDICARE, OTHER, SELFPAY ==
--- NOTE | 2020-08-22 14:54 | BD_ITS ---
STUDY: DUAL ENERGY X-RAY ABSORPTIOMETRY / DXA REASON FOR EXAM: Female, 65 years old. Z780 TECHNIQUE: Bone Mineral Density (BMD) measurements of lumbar spine and bilateral hips were obtained. COMPARISON: Comparison is made with prior study dated 01/07/2017. FINDINGS: Lumbar Spine (L1-L4): g/cm2 (1.094) / T-score (-0.7) / Z-score (0.9) Findings are suggestive of normal bone density with a low fracture risk. Left Femur Total: g/cm2 (0.975) / T-score (-0.3) / Z-score (1.0) Left Femoral Neck: g/cm2 (0.894) / T-score (-1.0) / Z-score (0.5) Right Femur Total: g/cm2 (0.913) / T-score (-0.7) / Z-score (0.5) Right Femoral Neck: g/cm2 (0.865) / T-score (-1.2) / Z-score (0.3) The T-Scores on the most recent prior examination were: Lumbar Spine (L1-L4): There has been improvement of bone density since the previous examination. Left Femur Total: which represents a worsening of 1.1%. Right Femur Total: which represents a worsening of 8.4%. BD/Dexa Bone Density Study IMPRESSION: The patient is considered osteopenic as outlined below according to World Jose Organization (WHO) criteria with a low fracture risk. There has been worsening of bone density since the previous examination. Reference Information: The T-score is the number of standard deviations above or below the standard which is normal for young adults at their peak bone mineral density. The World Health Organization (WHO) interprets the T-scores as follows: Above -1 Normal bone density Between -1 and -2.5 Osteopenia Equal to / or below -2.5 Osteoporosis As a practical clinical guideline, osteopenia may be graded as follows: Mild -1 through -1.5 Moderate -1.6 through -2.0 Severe -2.1 through -2.4 The Z-score is the number of standard deviations above or below age-matched controls. A Z-score of less than -1.5 would be considered abnormal. References: 1. NIH Osteoporosis and Related Bone Diseases www osteo.org 2. International Society for Clinical Densitometry www iscd.org 3. National Osteoporosis Foundation www nof.org Electronically Signed: Galileo Carias MD at 10:45 EDT , Service support ,
== END ==
PROVIDERS: PCP Family Medicine; Referring Provider Family Medicine; Visit Provider Family Medicine
DX: Z78.0 Asymptomatic menopausal state (principal)
CPT/HCPCS: 77080

== ENCOUNTER → 2020-10-18 15:22 | Outpatient (CLI) | payer MEDICARE, OTHER, SELFPAY ==
[2020-10-18 14:06] VITALS: BMI 37.5
[2020-10-18 18:00] LABS: Erythrocyte Sedimentation Rate 4 mm/hr (0-30)
[2020-10-18 18:11] LABS: CRP < 2.90 mg/L (0.0-3.0); Rheumatoid Factor < 10.0 IU/mL (<15); Uric Acid 4.6 mg/dL (2.6-6.0)
[2020-10-19 09:31] LABS: Hepatitis B Surface Antigen Non-Reactive (Nonreactive); Hepatitis C Antibody Non-Reactive (Nonreactive)
[2020-10-20 10:32] LABS: Hepatitis B Surface Antibody Non-Reactive
[2020-10-21 09:15] LABS: CCP IgG Antibodies 4 units (0-19)
[2020-10-22 08:41] LABS: Anti-Nuclear Antibody Test Negative (.)
== END ==
PROVIDERS: PCP Orthopaedic Surgery; Referring Provider Orthopaedic Surgery; Visit Provider Orthopaedic Surgery
DX: M25.50 Pain in unspecified joint (principal)
CPT/HCPCS: 36415; 84550; 85652; 86038; 86140; 86200; 86431; 86706; 86803; 87340

== ENCOUNTER → 2020-11-07 15:16 | Outpatient (CLI) | payer MEDICARE, OTHER, SELFPAY ==
[2020-11-07 14:45] VITALS: BMI 36.8
--- NOTE | 2020-11-07 15:17 | CT_ITS ---
STUDY: LOW DOSE CT LUNG CANCER SCREENING REASON FOR EXAM: Female, 65 years old. Lung cancer screening -- 63 pack year history; asymptomatic; former smoker RADIATION DOSAGE (If Supplied By Facility): CTDIvol = ( 4.02 ) mGy, DLP = ( 126.87 ) mGycm TECHNIQUE: No contrast was administered. Low dose technique was utilized (average mAS-38 and kVp 120). 1.25 mm axial source images with a slice interval of 1.25-mm were reconstructed in lung windows. 2.5 mm axial source images with a slice interval of 2.5-mm were reconstructed in lung windows. 5.0 mm axial source images with a slice interval of 5.0-mm were reconstructed in soft tissue windows. Nodule measured using lung windows on PACS and/or independent workstation with automated measurement of minimum and maximum diameter. Nodule measurement reported as average diameter rounded to the nearest whole number. Growth is defined as an increase ins size of greater than 1.5 mm. COMPARISON: Comparison is made with prior study dated 10/26/2019. NODULES: No suspicious nodules are seen. Emphysema: Stable emphysematous changes with scarring in the lung apices. Mild degree of increased markings at the lung bases suggestive of scarring more prominent in the lingular segment of the left upper lobe and lower lobes. Endobronchial lesion: None Aorta: Atherosclerotic plaque formation of the aortic arch. Coronary arteries: Unremarkable. Heart: Unremarkable Other chest and abdominal findings: CT/Low Dose CT Lung Screening IMPRESSION: Lung-RADS category 2 - Continue annual screening with LDCT in 12 months. IMPORTANT NOTES FOR USE: ACR Lung-RADS Version 1.1 Assessment Categories Release Date: 2018 Category: Coded 0-4 bases on nodule(s) with highest degree of suspicion. Negative screen is defined as categories 1 and 2; a positive screen is defined as categories 3 and 4. Category 3 and 4A nodules that are unchanged on interval CT should be coded as category 2, and individuals returned to screening in 12 months. Category 4X: Category 3 or 4 nodules with additional imaging findings that increase the suspicion of lung cancer, such as spiculation, GGN that doubles in size in 1 year, enlarged lymph notes, etc. Category Modifiers: S (significant finding unrelated to lung cancer) Electronically Signed: Galileo Carias MD at 15:49 EDT , Service support ,
== END ==
PROVIDERS: PCP Orthopaedic Surgery; Referring Provider Nurse Practitioner Family; Visit Provider Nurse Practitioner Family
DX: Z87.891 Personal history of nicotine dependence (principal); Z12.2 Encounter for screening for malignant neoplasm of respiratory organs
CPT/HCPCS: 71271

== ENCOUNTER 2020-11-13 17:39 | Emergency (ER) | payer MEDICARE, OTHER, SELFPAY ==
[2020-11-07 14:45] VITALS: BMI 36.8
[2020-11-13 17:40] VITALS: BP 116/72; PULSE 66; RESP 18; TEMP 35.8; O2SAT 96; BMI 36.8
--- NOTE | 2020-11-13 17:45 | RAD_ITS ---
INDICATION: FALL LEFT ANKLE PAIN EXAMINATION/TECHNIQUE: X-RAY - LEFT XR Ankle Min 3 Views COMPARISON: None. FINDINGS: No acute fracture or malalignment. No blastic or lytic lesions. No degenerative changes are seen. Soft tissue swelling of the ankle. RAD/Ankle min 3 Views IMPRESSION: Soft tissue swelling of the ankle without fracture. Electronically Signed: Josh Alexandra MD at 18:23 EDT Tel , Service support ,
--- NOTE | 2020-11-13 20:33 | EDS_ITS ---
HPI HPI - Fall History of Present Illness Chief Complaint: Fall Narrative Narrative: 65-year-old female presenting with left ankle pain and right knee pain. She states she misstepped coming out of the [employer] [facility]. She states she fell twisting her left ankle and striking her right knee on the ground. She denies head injury or loss of consciousness. Patient has an abrasion over her left proximal tibia. Patient states that she did not have any dizziness, lightheadedness prior to her fall and states it was purely mechanical. she is ambulatory with antalgic [facility] Medical History Chondromalacia Chronic obstructive lung disease Depression Dyspnea Encounter for screening for malignant neoplasm of lung in current smoker with 30 pack year history or greater History of tobacco use Hyperlipidemia Hypothyroidism Localized swelling, mass and lump, unspecified MARTELL (obstructive sleep apnea) Primary fibromyalgia syndrome Right ankle pain Vitamin D deficiency Home Medications duloxetine 60 mg PO DAILY 11/25/13 [History Last Taken 11/25/13] lovastatin 40 mg PO DAILY 11/25/13 [History Last Taken Unknown] albuterol sulfate 90 mcg/actuation aerosol inhaler 2 puff INHALATION Q6H #18 g 03/01/19 [Rx Last Taken Unknown] levothyroxine 75 mcg tablet 75 mcg PO DAILY 30 Days #30 tab 10/26/19 [History Last Taken Unknown] alendronate 70 mg tablet 70 mg PO QWEEK 10/11/20 [History Last Taken Unknown] cholecalciferol (vitamin D3) 125 mcg (5,000 unit) capsule 5,000 unit PO .Twice a week cap 10/11/20 [History Last Taken Unknown] fluticasone fur. 100 mcg-umeclid 62.5 mcg-vilant 25 mcg inhalat.powder 1 inh INHALATION DAILY #90 ea 10/12/20 [Rx Last Taken Unknown] Allergy/AdvReac Type Severity Reaction Status Date / Time SHINGLES VACCINE Allergy Rash Uncoded 11/13/20 17:42 Family History Mother Heart disease CVA (cerebral vascular accident) Brain tumor Father Cancer Stomach Heart disease Surgical History History of cataract extraction Social History Smoking Status: Former smoker quit date: 06/02/16 pack-years: 63 Tobacco: How many years used: 42 Electronic Cigarette Use: not used how long ago did patient quit smokin years second hand exposure: Yes quit status: quit date established counseling given: provider counseling alcohol intake: never substance use type: does not use ROS ROS ED Constitutional Constitutional ED: Denies chills, fever(s) or sweats Eyes Eyes: Denies blurry vision or change in vision ENT ENT ED: Denies ear pain or sore throat Cardiovascular Cardiovascular: Denies chest pain, palpitations or racing heartbeat Respiratory/Chest Respiratory/Chest: Denies cough, dyspnea or sputum Gastrointestinal Gastrointestinal: Denies abdominal pain, constipation, diarrhea, nausea or vomiting Genitourinary Genitourinary ED: Denies dysuria, hematuria or urinary frequency Musculoskeletal Musculoskeletal: Reports other Details: Left ankle pain and right knee pain ; Denies neck pain Integumentary Reports Abrasions and other Details: Superficial abrasion over proximal tibia ; Denies abscess or rash Neurologic Neurologic: Denies headache(s), paresthesias or weakness Psychiatric Psychiatric: Denies anxiety, depression, suicidal ideation or suicidal thoughts Endocrine Endocrinology: Denies polydipsia or polyuria EXAM Physical Exam Const Vital Signs: 11/13/20 17:40 11/13/20 20:28 11/13/20 20:58 Temperature 96.5 F L 97.1 F L Temperature Source Temporal Temporal Pulse Rate 66 76 Respiratory Rate 18 15 Respiratory Effort Normal Non-Labored Respiratory Depth Normal Respiratory Pattern Normal Blood Pressure 116/72 120/79 Blood Pressure Mean 86 92 Pulse Ox 96 99 Oxygen Delivery Method Room Air Room Air Positive well nourished General Appearance ED: NAD HEENT Reports normocephalic atraumatic Extremity Extremity Narrative: Left ankle shows mild edema on the lateral malleolus. There is no obvious deformity. Left foot neurovascular intact brisk cap refill to all 5 toes. Right knee has a superficial abrasion inferior to it on the proximal tibia. There is no deformity. Patient has pain on the lateral joint line and pain with flexion of the knee. Neuro oriented x3 Sensorium / Orientation: alert Psych mental status grossly normal and thought process normal Skin Skin Narrative: Superficial abrasion as documented above MDM MDM MDM Narrative Medical decision making narrative: Patient presents with left ankle and right knee pain. Patient declined any analgesia. She has a superficial abrasion over the right tibial region. Her tetanus immunization was updated. She had x-rays of the left ankle and right knee as interpreted by myself to show no acute fracture or subluxation. Radiologist does agree. Patient states she has a walker to use at home and does not require crutches. Patient instructed to use ice and alternating Tylenol and ibuprofen. Impression: 1. Mechanical fall 2. Left ankle sprain 3. Right knee contusion 4. Superficial abrasion right proximal tibia Radiography Diagnostic Testing: Radiology Impression Ankle X-Ray 11/13/20 17:45 IMPRESSION: Soft tissue swelling of the ankle without fracture. Electronically Signed: Josh Alexandra MD at 18:23 EDT Tel , Service support , Knee X-Ray 11/13/20 20:40 IMPRESSION: Normal x-ray examination of the knee. Electronically Signed: Danika Webb MD at 21:24 EDT Tel , Service support , Discharge Plan Triage Chief Complaint: Fall ED Provider: Dutch Bryan Dx/Rx/DC Orders Instructions: ED Abrasion, ED Knee Sprain, ED Ankle Sprain (Adult) Prescriptions: No Action levothyroxine 75 mcg tablet 75 mcg PO DAILY 30 Days Qty: 30 RF: 0 cholecalciferol (vitamin D3) 125 mcg (5,000 unit) capsule 5,000 unit PO .Twice a week RF: 0 alendronate [Fosamax] 70 mg tablet 70 mg PO QWEEK RF: 0 lovastatin 40 MG tablet 40 mg PO DAILY RF: 0 duloxetine 60 MG capsule,delayed release(DR/EC) 60 mg PO DAILY RF: 0 albuterol sulfate [Ventolin HFA] 90 mcg/actuation HFA aerosol inhaler 2 puff INHALATION Q6H Qty: 18 RF: 11 Trelegy Ellipta 100-62.5-25 mcg blister with device 1 inh INHALATION DAILY Qty: 90 RF: 3 Primary Care Provider: Fco Mccarthy Referrals: Fco Mccarthy MD [Primary Care Provider] -
--- NOTE | 2020-11-13 20:40 | RAD_ITS ---
STUDY: X-RAY - RIGHT KNEE REASON FOR EXAM: Female, 65 years old. knee pain TECHNIQUE: 4 view(s) of the knee. COMPARISON: None. FINDINGS: No acute fracture or dislocation. No destructive bone changes. Joint spaces are well-maintained. Normal alignment. Soft tissues are unremarkable. No radiopaque foreign body or soft tissue gas. RAD/Knee 4 or More Views IMPRESSION: Normal x-ray examination of the knee. Electronically Signed: Danika Webb MD at 21:24 EDT Tel , Service support ,
[2020-11-13] MEDS: Diphth,Pertuss(Acell),Tet Vac 0.5 ML Vial IM (20:57)
[2020-11-13 20:58] VITALS: BP 120/79; PULSE 76; RESP 15; TEMP 36.2; O2SAT 99
== END 2020-11-13 22:42 | disposition home or self-care (01) ==
PROVIDERS: Emergency Provider Student in an Organized Health Care Education/Training Program; PCP Family Medicine
DX: S93.402A Sprain of unspecified ligament of left ankle, initial encounter (principal); S80.01XA Contusion of right knee, initial encounter; S80.811A Abrasion, right lower leg, initial encounter; Z23 Encounter for immunization; W18.30XA Fall on same level, unspecified, initial encounter; X50.1XXA Overexertion from prolonged static or awkward postures, initial encounter; Y93.9 Activity, unspecified; Y92.512 Supermarket, store or market as the place of occurrence of the external cause; Y99.9 Unspecified external cause status; J44.9 Chronic obstructive pulmonary disease, unspecified; E78.5 Hyperlipidemia, unspecified; E03.9 Hypothyroidism, unspecified; G47.33 Obstructive sleep apnea (adult) (pediatric); E55.9 Vitamin D deficiency, unspecified; M79.7 Fibromyalgia; F32.9 Major depressive disorder, single episode, unspecified; Z79.890 Hormone replacement therapy; Z79.899 Other long term (current) drug therapy; Z87.891 Personal history of nicotine dependence
CPT/HCPCS: 73564; 73610; 90715; 96372; 99283

== ENCOUNTER → 2021-11-09 | Outpatient (CLI) | payer MEDICARE, OTHER, SELFPAY ==
--- NOTE | 2021-11-09 12:47 | CT_ITS ---
EXAM: CT CHEST, LUNG CANCER SCREENING WITHOUT INTRAVENOUS CONTRAST CLINICAL INDICATION: smoker and gt; 30 pack years TECHNIQUE: Helically acquired images were obtained of the chest without intravenous contrast using low dose (LDCT) lung cancer screening protocol. This CT exam was performed using one or more of the following dose reduction techniques: automated exposure control, adjustment of the mA and/or kV according to patient size, and/or use of iterative reconstruction technique. This report was created using [employer] report generation technology. COMPARISON: 11/07/2020 FINDINGS: LUNGS AND PLEURAL SPACES: There are mild interstitial opacities and groundglass opacity seen in both lungs. There is decreased scarring seen within the lingula on today''s exam. There is no focal consolidation. No mass. No pleural effusion or thickening. No pneumothorax. HEART: Unremarkable. Heart size is normal. No pericardial effusion. No significant coronary artery calcifications. MEDIASTINUM: Unremarkable. No mediastinal or hilar adenopathy. Esophagus is unremarkable. No hiatal hernia. THYROID: Unremarkable. No thyroid lesions. BONES/JOINTS: Unremarkable. No suspicious lytic or blastic abnormality. VASCULATURE: Unremarkable. Thoracic aorta is non-dilated. LYMPH NODES: Unremarkable. No enlarged lymph nodes. CT/Low Dose CT Lung Screening IMPRESSION: 1. Minimal interstitial scarring with trace groundglass opacities. There are no pulmonary nodules identified. 2. Lung RADS category 2. Electronically Signed: Nic Alcocer MD at 12:14 EDT ,
== END | disposition home or self-care (01) ==
LOC: CT 12:46
PROVIDERS: PCP Family Medicine; Referring Provider Nurse Practitioner Acute Care; Visit Provider Nurse Practitioner Acute Care
DX: Z12.2 Encounter for screening for malignant neoplasm of respiratory organs (principal); F17.210 Nicotine dependence, cigarettes, uncomplicated
CPT/HCPCS: 71271

== ENCOUNTER → 2021-12-21 | Outpatient (CLI) | payer MEDICARE, OTHER, SELFPAY ==
[2021-12-21 18:19] LABS: T4 Free Direct 0.84 ng/dL (0.76-1.46); Thyroid Stim Hormone (TSH) 1.72 uIU/mL (0.358-3.74)
== END | disposition home or self-care (01) ==
LOC: MTLAB 15:23
PROVIDERS: PCP Family Medicine; Referring Provider Family Medicine; Visit Provider Family Medicine
DX: E03.9 Hypothyroidism, unspecified (principal)
CPT/HCPCS: 36415; 84439; 84443

== ENCOUNTER → 2022-03-27 | Outpatient (CLI) | payer MEDICARE, OTHER, SELFPAY ==
[2022-03-27 10:58] LABS: Vitamin D,25 Hydroxy 38.8 ng/mL
[2022-03-27 11:03] LABS: AST(SGOT) 21 U/L (15-37); Alanine Aminotransfer ALT/SGPT 34 U/L (13-56); Albumin, Serum 3.8 g/dL (3.2-5.0); Alkaline Phosphatase 52 U/L (45-117); Bilirubin, Direct 0.07 mg/dL (0.00-0.30); Cholesterol 167 mg/dL (200); Globulin 3.5 g/dL (2.2-4.2); High Density Lipoprotein 46 mg/dL; Protein, Total 7.3 g/dL (6.4-8.2); Thyroid Stim Hormone (TSH) 2.51 uIU/mL (0.358-3.74); Triglycerides 153 mg/dL; Very Low Density Lipoprotein 31 mg/dL (5-40)
== END | disposition home or self-care (01) ==
LOC: BFHLAB 08:17
PROVIDERS: PCP Family Medicine; Visit Provider Family Medicine
DX: E11.9 Type 2 diabetes mellitus without complications (principal); E03.9 Hypothyroidism, unspecified; E78.5 Hyperlipidemia, unspecified; E55.9 Vitamin D deficiency, unspecified
CPT/HCPCS: 36415; 80061; 80076; 82306; 84443

== ENCOUNTER → 2022-09-13 | Outpatient (CLI) | payer MEDICARE, OTHER, SELFPAY ==
[2022-09-13 18:07] LABS: T4 Free Direct 0.77 ng/dL (0.76-1.46); Thyroid Stim Hormone (TSH) 2.86 uIU/mL (0.358-3.74)
== END | disposition home or self-care (01) ==
LOC: MTLAB 14:12
DX: E03.9 Hypothyroidism, unspecified (principal)
CPT/HCPCS: 36415; 84439; 84443

== ENCOUNTER → 2022-09-20 | Outpatient (CLI) | payer MEDICARE, OTHER, SELFPAY ==
--- NOTE | 2022-09-20 13:59 | BI_ITS ---
MAMMOGRAPHY - BILATERAL SCREENING REASON FOR EXAM: Female, 67 years old. Routine annual screening examination. PERTINENT HISTORY: Aunt with breast cancer. TECHNIQUE: Digital bilateral breast henrry (3D mammographic acquisition) in the CC and MLO projections. 2-D mediolateral oblique (MLO) and craniocaudad (CC) views of both breasts were obtained. CAD: Full Field Digital Mammography with Computer Added Detection was performed. COMPARISON: Comparison is made with prior outside examination dated September 21, 2021 and November 24, 2018. FINDINGS: Breast Composition: The breasts are heterogeneously dense, which may obscure small masses. There are no dominant masses or suspicious calcifications. Stable benign-appearing bilateral axillary lymph nodes. No other significant abnormalities are identified. There has been no significant change since the prior study. BI/SCRN MAMM (CAD)W/HENRRY BILAT IMPRESSION: Stable bilateral screening mammogram. Yearly follow-up mammogram recommended. (A) ASSESSMENT CATEGORY: BIRADS Category 2: Benign. A letter regarding these results will be sent to the patient by the facility within 30 days. Approximately 10% of breast cancers are not detected by mammography. A normal mammogram should not delay biopsy of a clinically suspicious abnormality. [id number] Electronically Signed: Galileo Carias MD at 15:14 EDT ,
== END | disposition home or self-care (01) ==
LOC: OPBI 13:58
PROVIDERS: PCP Nurse Practitioner Family; Referring Provider Nurse Practitioner Family; Visit Provider Nurse Practitioner Family
DX: Z12.31 Encounter for screening mammogram for malignant neoplasm of breast (principal)
CPT/HCPCS: 77063; 77067

== ENCOUNTER → 2022-11-12 | Outpatient (CLI) | payer MEDICARE, OTHER, SELFPAY ==
--- NOTE | 2022-11-12 14:56 | CT_ITS ---
STUDY: LOW DOSE CT LUNG CANCER SCREENING REASON FOR EXAM: Female, 67 years old. 30 pack years quit 2016 RADIATION DOSAGE (If Supplied By Facility): CTDIvol = ( 4.02 ) mGy, DLP = ( 123.35 ) mGycm TECHNIQUE: No contrast was administered. Low dose technique was utilized (average mAS-38 and kVp 120). 1.25 mm axial source images with a slice interval of 1.25-mm were reconstructed in lung windows with coronal and sagittal reformats. COMPARISON: November 09, 2021, November 07, 2020, October 26, 2019 NODULES: 6 mm focal irregular thickening along the right major fissure is unchanged from October 25, 2020 compatible with a benign process, commonly intrapulmonary lymph node or scarring. Additional linear thickening along the left major fissure also not significantly changed from October 26, 2019. No suspicious pulmonary nodules. Parenchyma: Mild bilateral apical scarring. Bilateral scattered peripheral fibrosis with no significant change from November 09, 2021, mildly progressive from October 26, 2019, without consolidation, effusion, or pneumothorax. Mild bilateral diffuse bronchiectasis. Endobronchial lesion: No endobronchial lesion. Aorta: Aortic atherosclerosis without ectasia. CORONARY ARTERIES: No densely calcified coronary atherosclerosis. Heart: No cardiomegaly or pericardial effusion. Pulmonary artery: No main pulmonary arterial enlargement. Mediastinal nodes: No mediastinal or hilar adenopathy by size criteria. 4 mm prevascular lymph node is unchanged from October 26, 2019. Scattered subcentimeter lymph nodes are decreased in size from prior exam. Other chest and abdominal findings: None CT/Low Dose CT Lung Screening IMPRESSION: Stable thickening along the bilateral major fissure compared with October 26, 2019 as above. No suspicious pulmonary nodularity. Patchy bilateral peripheral fibrosis without significant change from prior exam. Lung-RADS category 2 S - Continue annual screening with LDCT in 12 months. IMPORTANT NOTES FOR USE: ACR Lung-RADS Version 1.1 Assessment Categories Release Date: 2018 Category: Coded 0-4 bases on nodule(s) with highest degree of suspicion. Negative screen is defined as categories 1 and 2; a positive screen is defined as categories 3 and 4. Category 3 and 4A nodules that are unchanged on interval CT should be coded as category 2, and individuals returned to screening in 12 months. Category 4X: Category 3 or 4 nodules with additional imaging findings that increase the suspicion of lung cancer, such as spiculation, GGN that doubles in size in 1 year, enlarged lymph notes, etc. Category Modifiers: S (significant finding unrelated to lung cancer) Electronically Signed: Ke Albright MD at 10:35 EDT ,
== END | disposition home or self-care (01) ==
LOC: CT 14:54
PROVIDERS: PCP Nurse Practitioner Family; Referring Provider Nurse Practitioner Acute Care; Visit Provider Nurse Practitioner Acute Care
DX: Z12.2 Encounter for screening for malignant neoplasm of respiratory organs (principal); F17.210 Nicotine dependence, cigarettes, uncomplicated
CPT/HCPCS: 71271

== ENCOUNTER → 2023-03-20 | Outpatient (CLI) | payer MEDICARE, OTHER, SELFPAY ==
[2023-03-20 08:46] LABS: Absolute Lymphocyte Count 1.96 X10^3/uL (0.83-4.51); Absolute Neutrophil Count 4.6 X10^3/uL (2.0-7.7); Basophil# 0.04 X10^3/uL; Basophil% 0.5 % (0-1); Eosinophil# 0.23 X10^3/uL; Eosinophils% 3.1 % (0-5); Hematocrit 41.7 % (37-47); Hemoglobin 12.9 g/dL (12.0-15.0); Lymphocyte # 1.96 X10^3/ul (0.83-4.51); Lymphocyte % 26.4 % (19-41); Mean Corp Hgb Conc 30.9 g/dL (32-36); Mean Corpuscular Hgb 30.6 pg (27.0-32.0); Mean Corpuscular Volume 98.8 fL (81-99); Mean Platelet Vol. 11.1 fl (6.2-12.0); Monocyte# 0.61 X10^3/uL; Monocyte% 8.2 % (0-10); NRBC Flagged by Analyzer 0 % (0-5); Neutrophil # 4.57 X10^3/uL (2.7-7.7); Neutrophil % 61.5 % (47-70); Platelet Count 274 K/mm3 (150-450); RBC Distribution Width CV 12.9 % (11.6-14.6); RBC Distribution Width SD 46.9 fl (35.1-43.9); Red Blood Count 4.22 M/mm3 (4.2-5.4); White Blood Count 7.4 K/mm3 (4.4-11.0)
[2023-03-20 09:18] LABS: Microalbumin,Random Urine 27.5 mg/L (NO RANGE EST.); Microalbumin:Creatinine Ratio 12.1 mg/g CRE (<30 mg/g CRE)
[2023-03-20 09:29] LABS: Vitamin D,25 Hydroxy 45.5 ng/mL
[2023-03-20 09:38] LABS: AST(SGOT) 13 U/L (15-37); Alanine Aminotransfer ALT/SGPT 27 U/L (13-56); Albumin, Serum 3.7 g/dL (3.2-5.0); Alkaline Phosphatase 72 U/L (45-117); Anion Gap 5 (5-15); BUN 19 mg/dL (7-18); BUN/Creat Ratio 21.3 RATIO (10-20); Calcium,Total 8.8 mg/dL (8.5-10.1); Chloride 107 mmol/L (98-107); Cholesterol 137 mg/dL (200); Creatinine, Serum 0.89 mg/dL (0.55-1.02); EST Glomerular Filtration Rate 67 mL/min (>60); Est Glom Filt Rate - Afr Amer 81 mL/min (>60); Globulin 3.6 g/dL (2.2-4.2); Glucose 121 mg/dL (74-106); High Density Lipoprotein 42 mg/dL; Potassium 4.1 mmol/L (3.5-5.1); Protein, Total 7.3 g/dL (6.4-8.2); Sodium Level 140 mmol/L (136-145); Thyroid Stim Hormone (TSH) 5.18 uIU/mL (0.358-3.74); Triglycerides 141 mg/dL; Very Low Density Lipoprotein 28 mg/dL (5-40)
== END | disposition home or self-care (01) ==
LOC: LAB 08:08
PROVIDERS: PCP Nurse Practitioner Family; Referring Provider Nurse Practitioner Family; Visit Provider Nurse Practitioner Family
DX: I10 Essential (primary) hypertension (principal); E03.9 Hypothyroidism, unspecified; E55.9 Vitamin D deficiency, unspecified; E78.5 Hyperlipidemia, unspecified
CPT/HCPCS: 36415; 80053; 80061; 82043; 82306; 82570; 84443; 85025

== ENCOUNTER → 2023-05-22 | Outpatient (CLI) | payer MEDICARE, OTHER, SELFPAY ==
[2023-05-22 16:31] LABS: T4 Free Direct 0.83 ng/dL (0.76-1.46); Thyroid Stim Hormone (TSH) 3.57 uIU/mL (0.358-3.74)
== END | disposition home or self-care (01) ==
LOC: BFHLAB 14:45
PROVIDERS: PCP Nurse Practitioner Family; Visit Provider Nurse Practitioner Family
DX: E03.9 Hypothyroidism, unspecified (principal)
CPT/HCPCS: 36415; 84439; 84443

== ENCOUNTER → 2023-09-19 | Outpatient (CLI) | payer MEDICARE, OTHER, SELFPAY ==
[2023-09-19 18:30] LABS: Thyroid Stim Hormone (TSH) 4.17 uIU/mL (0.358-3.74)
== END | disposition home or self-care (01) ==
LOC: BFHLAB 14:42
PROVIDERS: PCP Nurse Practitioner Family; Visit Provider Nurse Practitioner Family
DX: E03.9 Hypothyroidism, unspecified (principal)
CPT/HCPCS: 36415; 84439; 84443

== ENCOUNTER → 2023-09-26 | Outpatient (CLI) | payer MEDICARE, OTHER, SELFPAY ==
--- NOTE | 2023-09-26 13:20 | BI_ITS ---
MAMMOGRAPHY - BILATERAL SCREENING REASON FOR EXAM: Female, 68 years old. Routine annual screening examination. PERTINENT HISTORY: Aunt with breast cancer. TECHNIQUE: Digital bilateral breast henrry (3D mammographic acquisition) in the CC and MLO projections. 2-D mediolateral oblique (MLO) and craniocaudad (CC) views of both breasts were obtained. CAD: Full Field Digital Mammography with Computer Added Detection was performed. COMPARISON: Comparison is made with prior study September 20, 2022 and November 24, 2018. FINDINGS: Breast Composition: The breasts are heterogeneously dense, which may obscure small masses. There are no dominant masses or suspicious calcifications. Stable small benign-appearing bilateral axillary lymph nodes. No other significant abnormalities are identified. There has been no significant change since the prior study. BI/SCRN MAMM (CAD)W/HENRRY BILAT IMPRESSION: Stable bilateral screening mammogram. Yearly follow-up mammogram recommended. (A) ASSESSMENT CATEGORY: BIRADS Category 2: Benign. A letter regarding these results will be sent to the patient by the facility within 30 days. Approximately 10% of breast cancers are not detected by mammography. A normal mammogram should not delay biopsy of a clinically suspicious abnormality. [id number] Electronically Signed: Galileo Carias MD at 14:08 EDT ,
== END | disposition home or self-care (01) ==
PROVIDERS: PCP Nurse Practitioner Family; Referring Provider Nurse Practitioner Family; Visit Provider Nurse Practitioner Family
DX: Z12.31 Encounter for screening mammogram for malignant neoplasm of breast (principal)
CPT/HCPCS: 77063; 77067

== ENCOUNTER → 2023-11-26 | Outpatient (CLI) | payer MEDICARE, OTHER, SELFPAY ==
--- NOTE | 2023-11-26 12:56 | CT_ITS ---
HISTORY: smoker. TECHNIQUE: Helically acquired images were obtained of the chest without contrast. A radiation dose optimization technique was used for this scan. 890 images. COMPARISON: 11/12/2022. FINDINGS: LARGE AIRWAYS: Mild adherent material in the left trachea. LUNGS: Mild biapical scarring and chronic pulmonary fibrosis. Unchanged 6 mm triangular right lower lobe peripheral based nodule. New 4 mm round pleural-based nodule in the left upper lobe laterally. New mild patchy and nodular lingular opacities measuring up to 7 mm. PLEURA: No pneumothorax or significant pleural effusion. HEART/PERICARDIUM: Heart within normal limits in size with mild coronary artery calcification. No pericardial effusion. VESSELS: Thoracic aorta nondilated. Mild atherosclerosis. MEDIASTINUM/SURESH: Stable 2.3 cm anterior mediastinal cyst. No pathologically enlarged adenopathy. UPPER ABDOMEN: Unremarkable. BONES: Degenerative change. CT/Low Dose CT Lung Screening IMPRESSION: New pulmonary nodules measuring up to 4 mm in the left upper lobe and 7 mm in the lingula. Lung-RADS category 4A. Recommend [address] follow-up. Electronically Signed: Dena Mckeon MD at 12:01 EDT ,
--- NOTE | 2023-11-26 13:18 | BD_ITS ---
STUDY: DUAL ENERGY X-RAY ABSORPTIOMETRY / DXA REASON FOR EXAM: Female, 68 years old. M85.89 TECHNIQUE: Bone Mineral Density (BMD) measurements of lumbar spine and bilateral hips were obtained. COMPARISON: Comparison is made with prior study dated August 22, 2020. FINDINGS: Lumbar Spine (L1-L4): g/cm2 (0.886) / T-score (-0.8) / Z-score (1.1) Findings are suggestive of normal bone density with a low fracture risk. Left Femur Total: g/cm2 (0.920) / T-score (-0.2) / Z-score (1.3) Left Femoral Neck: g/cm2 (0.717) / T-score (-1.2) / Z-score (0.6) Right Femur Total: g/cm2 (0.928) / T-score (-0.1) / Z-score (1.3) Right Femoral Neck: g/cm2 (0.696) / T-score (-1.4) / Z-score (0.4) The T-Scores on the most recent prior examination were: Lumbar Spine (L1-L4): There has been improvement of bone density since the previous examination. Left Femur Total: which represents an improvement of 1.2%. Right Femur Total: which represents an improvement of 9.2%. BD/Dexa Bone Density Study IMPRESSION: The patient is considered osteopenic as outlined below according to World Jose Organization (WHO) criteria with a low fracture risk. There has been improvement of bone density since the previous examination. Reference Information: The T-score is the number of standard deviations above or below the standard which is normal for young adults at their peak bone mineral density. The World Health Organization (WHO) interprets the T-scores as follows: Above -1 Normal bone density Between -1 and -2.5 Osteopenia Equal to / or below -2.5 Osteoporosis As a practical clinical guideline, osteopenia may be graded as follows: Mild -1 through -1.5 Moderate -1.6 through -2.0 Severe -2.1 through -2.4 The Z-score is the number of standard deviations above or below age-matched controls. A Z-score of less than -1.5 would be considered abnormal. References: 1. NIH Osteoporosis and Related Bone Diseases www osteo.org 2. International Society for Clinical Densitometry www iscd.org 3. National Osteoporosis Foundation www nof.org Electronically Signed: Galileo Carias MD at 16:25 EDT ,
== END | disposition home or self-care (01) ==
LOC: OPBD 12:54
PROVIDERS: PCP Nurse Practitioner Family; Referring Provider Nurse Practitioner Family; Visit Provider Nurse Practitioner Family
DX: M85.89 Other specified disorders of bone density and structure, multiple sites (principal); F17.210 Nicotine dependence, cigarettes, uncomplicated
CPT/HCPCS: 71271; 77080

== ENCOUNTER → 2024-02-24 | Outpatient (CLI) | payer MEDICARE, OTHER, SELFPAY ==
--- NOTE | 2024-02-24 15:23 | CT_ITS ---
EXAM: CT CHEST WITHOUT INTRAVENOUS CONTRAST CLINICAL INDICATION: new lung nodules in high risk patient TECHNIQUE: Helically acquired images were obtained of the chest without intravenous contrast. This CT exam was performed using one or more of the following dose reduction techniques: automated exposure control, adjustment of the mA and/or kV according to patient size, and/or use of iterative reconstruction technique. COMPARISON: 11/26/2023 FINDINGS: LUNGS AND PLEURAL SPACES: There is a nodule in the left lung apex which is increased in size measuring 1.0 x 0.8 cm on today''s exam compared to 6 x 4 mm on the previous examination. No pleural effusion or thickening. No pneumothorax. HEART: Unremarkable. Heart size is normal. No pericardial effusion. No significant coronary artery calcifications. MEDIASTINUM: There is a stable low-density lesion in the anterior mediastinum measuring 2.0 x 2.1 which may represent a cyst. No mediastinal or hilar adenopathy. Esophagus is unremarkable. No hiatal hernia. THYROID: Unremarkable. No thyroid lesions. BONES/JOINTS: Unremarkable. No suspicious lytic or blastic abnormality. VASCULATURE: Unremarkable. Thoracic aorta is non-dilated. CT/Chest without Contrast IMPRESSION: Interval increase in size of a noncalcified nodule left lung apex. Lung-RADS score: 4B - Very Suspicious. Recommend chest CT with or without contrast, PET/CT and/or tissue sampling depending on the probability of malignancy and comorbidities. PET/CT may be used when there is a >=8 mm solid component. For new large nodules that develop on an annual repeat screening CT, a 1 month LDCT may be recommended to address potentially infectious or inflammatory conditions. Electronically Signed: Nic Alcocer MD at 0:09 EDT ,
== END | disposition home or self-care (01) ==
LOC: CT 15:21
PROVIDERS: PCP Nurse Practitioner Family; Referring Provider Nurse Practitioner Acute Care; Visit Provider Nurse Practitioner Acute Care
DX: R91.8 Other nonspecific abnormal finding of lung field (principal)
CPT/HCPCS: 71250

== ENCOUNTER → 2024-02-26 | Outpatient (CLI) | payer MEDICARE, OTHER, SELFPAY ==
[2024-02-26 13:13] LABS: Platelet Count 287 K/mm3 (150-450)
[2024-02-26 13:40] LABS: International Normalized Ratio 1.1; Prothrombin Time (Protime)PT. 13.7 SECONDS (11.7-14.9)
[2024-02-26 13:41] LABS: Partial Thromboplast Time 28.9 Seconds (24.1-36.2)
== END | disposition home or self-care (01) ==
LOC: PAVLAB 12:59
PROVIDERS: PCP Nurse Practitioner Family; Referring Provider Nurse Practitioner Acute Care; Visit Provider Nurse Practitioner Acute Care
DX: I48.91 Unspecified atrial fibrillation (principal); R06.09 Other forms of dyspnea
CPT/HCPCS: 36415; 85049; 85610; 85730

== ENCOUNTER 2024-03-23 07:54 | Outpatient (CLI) | payer MEDICARE, OTHER, SELFPAY ==
[2024-03-23 08:30] VITALS: BP 143/77; PULSE 63; RESP 16; TEMP 36.3; O2SAT 99; BMI 35.6
== END 2024-03-23 23:59 | disposition home or self-care (01) ==
LOC: CT 08:01
PROVIDERS: PCP Nurse Practitioner Family; Referring Provider Nurse Practitioner Acute Care; Visit Provider Nurse Practitioner Acute Care
DX: R91.8 Other nonspecific abnormal finding of lung field (principal); R91.1 Solitary pulmonary nodule
CPT/HCPCS: 32408; 77012; A4216

== ENCOUNTER → 2024-03-30 | Outpatient (CLI) | payer MEDICARE, OTHER, SELFPAY ==
--- NOTE | 2024-03-30 10:45 | PET_ITS ---
EXAMINATION: FDG PET-CT INDICATIONS: A 68-year-old female with a history of pulmonary nodularity. COMPARISON EXAMINATION: CT of the chest dated 02/24/24. INDEX LESION SIZE SUV INTERPRETATION Left upper lung field, left upper lobe 18.8 mm 6.3 Fulfills quantitative criteria for viable neoplasm. Anterior, middle mediastinum aorticopulmonary window 23.9 mm 5.3 Fulfills quantitative criteria for viable neoplasm. NON-INDEX LESION SIZE SUV INTERPRETATION Left and right lobe thyroid colloid 4.7 max Strict quantitative criteria for viable neoplasm are not fulfilled, correlation with thyroid ultrasound recommended. TECHNIQUE: Following the intravenous administration of 15.69 mCi of F-18 deoxyglucose via the right antecubital fossa, multiplanar image acquisitions of the head, neck, chest, abdomen and pelvis to level of mid-thigh, lower extremities obtained at one hour post radiopharmaceutical administration contemporaneously interpreted with the current CT of the head, neck, chest, abdomen and pelvis to level of mid-thigh, lower extremities dated 03/30/24 via coregistration reveal: SERUM GLUCOSE LEVEL: 88 mg/dl. HEIGHT: 64 inches. WEIGHT: 210 lbs. FINDINGS: Head/Neck: There is no evidence of abnormal increased glucose metabolism in the pharyngeal mucosal space, parapharyngeal space, bilateral-lateral and anterior neck, hypopharynx and distribution of the laryngeal structures. The visualized portion of the cerebral cortical-subcortical structures demonstrate symmetric and preserved glucose metabolism. Facilitated uptake is noted in the right and left lobes of a vaguely u-shaped thyroid gland. The calculated maximum standard uptake value is 4.7. CHEST: Facilitated uptake is noted in the left upper posterolateral lung zone, left upper lobe. The calculated maximum standard uptake value is 6.3. The maximum axial diameter of the metabolic, morphologic abnormality is 18.8 mm. Facilitated radiopharmaceutical concentration is noted in the anterior and middle mediastinum and aorticopulmonary window. The calculated maximum standard uptake value is 5.3. The largest corresponding soft tissue density is 23.9 mm. Additional parenchymal changes noted in the bilateral lower hemithorax are ametabolic. Right and left axillary soft tissue densities demonstrate no evidence of increased FDG uptake. Pertinent chest CT findings are as follows. There is atherosclerotic calcification defined in the thoracic aorta without evidence of dilatation-aneurysm formation. Coronary arterial calcification is observed. Bilateral axillary soft tissue densities are ametabolic. Abdomen/Pelvis: Normal physiologic distribution of the radiopharmaceutical is apparent in the hepatic (4.2) and splenic parenchyma, both renal units, bladder and visualized intestinal tract. Diffuse radiopharmaceutical concentration is noted in all four quadrants of the abdomen and pelvis. Pertinent abdomen and pelvis CT findings are as follows. Calcifications are noted in the lower pelvis anterior to the uterus without evidence of increased tracer uptake. Right and left inguinal soft tissue densities are ametabolic. There is atherosclerotic calcification defined in the abdominal aorta without evidence of dilatation-aneurysm formation. Pelvic arterial calcification is defined. Skeletal: Degenerative changes are noted in the cervical, thoracic and lumbar spine. PET/PET/CT Tumor Base -Thigh Init IMPRESSION: 1. Enhanced labeled glucose defined in the left upper lung field, left upper lobe fulfills quantitative criteria for viable neoplasm with single point technique. Histopathologic analysis is recommended. (Hairston et al, Annals of Internal Medicine, 138:724, 2003) 2. Increased FDG concentration noted in the anterior and middle mediastinum aorticopulmonary window fulfills quantitative criteria for malignant transformation. (Herminio et al, Journal of Clinical Oncology 16:2142, 1998) 3. Facilitated radiopharmaceutical manifest in the left and right lobe of the thyroid colloid does not fulfill quantitative criteria for primary thyroidal neoplastic transformation. Correlation with thyroid ultrasound may be of benefit. Electronic Signature Dany Mackey D.O. Accurate Quantification of SUVs for this report are calculated using the exclusive [employer], ([place]. Patent No. [phone] [phone] [place] patent [phone] ). Standardization and correction of the FDG SUV metric exclusively available with [employer] intellectual property, allow for vendor non-specific objective quantitative sequential FDG PET-CT comparison and otherwise unobtainable optimization of the sensitivity and specificity of the examination. [email or web address] Electronically Signed: Dany Mackey DO at 8:09 EDT ,
== END | disposition home or self-care (01) ==
LOC: ONC 09:42
PROVIDERS: PCP Nurse Practitioner Family; Referring Provider Nurse Practitioner Acute Care; Visit Provider Nurse Practitioner Acute Care
DX: R91.8 Other nonspecific abnormal finding of lung field (principal); R91.1 Solitary pulmonary nodule
CPT/HCPCS: 78815; A9552

== ENCOUNTER → 2024-04-14 | Outpatient (CLI) | payer MEDICARE, OTHER, SELFPAY | END | disposition home or self-care (01) | LOC: PSN 07:45 | PROVIDERS: PCP Nurse Practitioner Family; Referring Provider Nurse Practitioner Acute Care; Visit Provider Nurse Practitioner Acute Care | DX: J44.9 Chronic obstructive pulmonary disease, unspecified (principal) | CPT/HCPCS: 94010; 94060; 94726; 94729 ==

== ENCOUNTER → 2024-04-15 | Outpatient (CLI) | payer MEDICARE, OTHER, SELFPAY ==
[2024-04-15 12:23] VITALS: PULSE 79; PULSE 81; PULSE 83; PULSE 89; PULSE 90; PULSE 91; PULSE 95; O2SAT 93; O2SAT 94; O2SAT 95; O2SAT 96; O2SAT 97; O2SAT 98
--- NOTE | 2024-04-19 12:18 | PCM.PSN.6M ---
PSN 6 Minute Walk Test 6 Minute Walk Test 6 Minute Walk Test: 6 Minute Walk Test PSN:6-Minute Walk Test Start: 04/15/24 12:23 Freq: Status: Active Protocol: [id number].6MINW Document 04/15/24 12:23 [facility] (Rec: 04/15/24 12:27 [facility] [id number]) 6 Minute Walk Test Date Performed 04/15/24 Time Performed 12:10 Height 5 ft 5 in Weight: 215 lb Weight in Pounds [address]: Angela Linton [employer] Assistive device used: None Pre-test Oxygen Delivery Method Room Air Pulse Ox (%) 95 Pulse Rate (60-100 beats/min) 79 Dyspnea Janet Scale (0-10) 0 1st minute Oxygen Delivery Method Room Air Pulse Ox (%) 93 Pulse Rate (60-100 beats/min) 81 Dyspnea Janet Scale (0-10) 1 Number of Rests Taken 0 2nd minute Oxygen Delivery Method Room Air Pulse Ox (%) 94 Pulse Rate (60-100 beats/min) 83 Dyspnea Janet Scale (0-10) 1 Number of Rests Taken 0 3rd minute Oxygen Delivery Method Room Air Pulse Ox (%) 96 Pulse Rate (60-100 beats/min) 89 Dyspnea Janet Scale (0-10) 2 Number of Rests Taken 0 Reported Symptoms Increased Work of Breathing 4th minute Oxygen Delivery Method Room Air Pulse Ox (%) 98 Pulse Rate (60-100 beats/min) 90 Dyspnea Janet Scale (0-10) 3 Number of Rests Taken 1 Reported Symptoms Increased Work of Breathing 5th minute Oxygen Delivery Method Room Air Pulse Ox (%) 95 Pulse Rate (60-100 beats/min) 91 Dyspnea Janet Scale (0-10) 3 Number of Rests Taken 0 Reported Symptoms Increased Work of Breathing 6th minute Oxygen Delivery Method Room Air Pulse Ox (%) 94 Pulse Rate (60-100 beats/min) 95 Dyspnea Janet Scale (0-10) 3 Number of Rests Taken 0 Reported Symptoms Increased Work of Breathing Post-test Oxygen Delivery Method Room Air Pulse Ox (%) 97 Pulse Rate (60-100 beats/min) 83 Dyspnea Janet Scale (0-10) 0 Full Laps Walked 13 Partial Lap, Number of Tiles Walked 23 Total Distance Walked (ft) 790 Interpretation Interpretation: The patient ambulated 790 feet over the course of 6 minutes beginning on room air without assistive devices. Pretesting oxygen saturation was noted to be 95% on room air. With ambulation, the bernard oxygen saturation was 93%. There was no significant exertional oxygen desaturation. Recommendations Recommendations: There is no indication for the use of supplemental oxygen at this time.
== END | disposition home or self-care (01) ==
LOC: PSN 12:04
PROVIDERS: PCP Nurse Practitioner Family; Referring Provider Nurse Practitioner Acute Care; Visit Provider Nurse Practitioner Acute Care
DX: J44.9 Chronic obstructive pulmonary disease, unspecified (principal)
CPT/HCPCS: 94618

== ENCOUNTER → 2024-05-10 | Outpatient (CLI) | payer MEDICARE, OTHER, SELFPAY ==
--- NOTE | 2024-05-09 08:44 | MRI_ITS ---
EXAM: MR HEAD WITHOUT AND WITH INTRAVENOUS CONTRAST CLINICAL INDICATION: staging lung cancer TECHNIQUE: Multiplanar and multisequence MR images of the brain were obtained without and with intravenous contrast. CONTRAST: IV 20mlClariscan COMPARISON: MRI brain with and without contrast 06/12/2010. FINDINGS: BRAIN AND EXTRA-AXIAL SPACES: Unremarkable. No intra- or extra-axial hemorrhage. No intracranial mass or mass effect. Posterior fossa structures are unremarkable. No diffusion restriction to suspect acute or subacute ischemic infarct. No remote ischemic infarct. No suspicious focal signal abnormalities throughout the brain parenchyma. No communicating or noncommunicating hydrocephalus. Normal ventricles and cisterns. Following IV contrast administration, there are no abnormally enhancing lesions intra-axially and extra-axially. SELLA: Unremarkable. Normal sella turcica, pituitary gland, infundibular stalk, optic chiasm and hypothalamus. AUDITORY SYSTEM: Unremarkable. The internal auditory canals are patent. BONES/JOINTS: Unremarkable. No discrete lytic or blastic abnormalities. SINUSES: Unremarkable as visualized. Clear. MASTOID AIR CELLS: Unremarkable as visualized. Clear. ORBITS: Unremarkable as visualized. Both globes, extraocular muscles, optic nerves and retrobulbar fat appear unremarkable. VASCULATURE: Unremarkable as visualized. Normal flow voids in the major intracranial circulation. MRI/Brain W/WO Contrast IMPRESSION: No MRI evidence of brain metastases. This is a negative MRI brain with and without contrast and no significant interval changes since 06/12/2010. Electronically Signed: Tomas Wakefield MD at 11:42 EST ,
== END | disposition home or self-care (01) ==
LOC: MRI 13:25
PROVIDERS: PCP Nurse Practitioner Family; Referring Provider Nurse Practitioner Acute Care; Visit Provider Nurse Practitioner Acute Care
DX: C34.12 Malignant neoplasm of upper lobe, left bronchus or lung (principal)
CPT/HCPCS: 70553; A9575

== ENCOUNTER 2024-05-13 09:40 | Day surgery (SDC) | payer MEDICARE, OTHER, SELFPAY ==
[2024-05-13] VITALS (8 sets, daily range): BP systolic 134–144; BP diastolic 70–96; PULSE 60–69; RESP 16–18; TEMP 36.4–36.5; O2SAT 99–100; BMI 35.2
--- NOTE | 2024-05-13 10:02 | PRE.ANES_ITS ---
ASA Classification* ASA Classification ASA Classification: 3 Assessment & Plan Anesthesia* Anesthesia Assessment Anesthesia Assessment: Discussed sedation and/or anesthesia options, risks, benefits, and alternatives with patient/parents/legal guardian/POA. Questions invited. The patient/parents/legal guardian/POA seems to understand and agrees to proceed with anesthesia plan. Reviewed the physical assessment, medical history, allergy history and patient home medications list prior to surgery/procedure/anesthetic and documented any changes. Performed airway and anesthesia risk assessments. Anesthesia Type Anesthesia Type: MAC Anesthesia Focused Assessment* Airway Assessment Mouth opens: >3 cm Mallampati Score: II Focused Labs Anesthesia Preop lab: CBC WBC 8.1 K/mm3 (4.4-11.0) 05/05/24 14:45 RBC 3.90 M/mm3 (4.2-5.4) L 05/05/24 14:45 Hgb 12.2 g/dL (12.0-15.0) 05/05/24 14:45 Hct 37.6 % (37-47) 05/05/24 14:45 Plt Count 306 K/mm3 (150-450) 05/05/24 14:45 CHEMISTRY Potassium 3.8 mmol/L (3.5-5.1) 05/05/24 14:45 Sodium 142 mmol/L (136-145) 05/05/24 14:45 BUN 17 mg/dL (7-18) 05/05/24 14:45 Creatinine 0.69 mg/dL (0.55-1.02) 05/05/24 14:45 Glucose 96 mg/dL (74-106) 05/05/24 14:45 TSH 4.17 uIU/mL (0.358-3.74) H 09/19/23 14:43 COAG PT 13.7 SECONDS (11.7-14.9) 02/26/24 13:07 Pre-Assessment Diagnosis/Proposed Procedure Planned Operative Procedure(s): (R) Insertion, Vascular Port right poss left Anesthesia History Anesthesia History - environmental remediation engineer: Anesthesia History - environmental remediation engineer Hx Hospitalization No 05/12/24 14:13 Any Problems With Anesthesia No 05/12/24 14:13 Cholinesterase deficiency No 05/12/24 14:13 You/Your Family Experience No 05/12/24 14:13 fever (hyperthermia) with Relationship Recent Exposure to Contagious No 05/04/24 10:07 Disease Does patient have nerve No 05/12/24 14:13 stimulator Patient instructed to have device shut off --Does patient have Pacemaker or ICD? When Was Last Pacemaker Check QUESTION #4 FULL TEXT: You/Your Family Experience fever (hyperthermia) with Anesthesia Last Oral Intake Last Oral intake: Last Oral Intake NPO since Meds taken in AM with sips of water? Meds patient instructed to take am of surgery PONV PONV - environmental remediation engineer: PONV - environmental remediation engineer Female Yes 05/12/24 14:13 HX of Motion Sickness No 05/12/24 14:13 HX of N/V After Surgery No 05/12/24 14:13 Non-Smoker Yes 05/12/24 14:13 Duration of Surgery greater No 05/12/24 14:13 than 60 minutes Number of Risk Factors 2 05/12/24 14:13 PONV Score Moderate Risk 05/12/24 14:13 Height & Weight Height & Weight: Anesthesia: Height & Weight Height 5 ft 5 in 05/11/24 13:37 Respiratory Assessment Respiratory Assessment - environmental remediation engineer: Respiratory Tract Infection Hx - environmental remediation engineer Hx Respiratory Tract Infection No 05/12/24 14:13 STOP Sleep Apnea STOP Sleep Apnea - environmental remediation engineer: STOP Sleep Apnea - environmental remediation engineer Hx Hypertension No 05/12/24 14:13 Hx Sleep Apnea Yes 05/12/24 14:13 CPAP Yes 05/12/24 14:13 BIPAP No 05/12/24 14:13 Do you snore loudly (louder than talking or can be heard Do you often feel tired/ fatigued/ sleepy during daytime? Has anyone observed you stop breathing during sleep? STOP Results Positive 05/12/24 14:13 QUESTION #5 FULL TEXT : Do you snore loudly (louder than talking or can be heard through closed doors)? 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 Specify any problems Hx of Preganancy in last 3 N/A 05/12/24 14:13 Months Nurse Filling Out Transfusion NBUCHER 05/12/24 14:13 & Questions: Date: 05/12/24 05/12/24 14:13 Time: 14:16 05/12/24 14:13 Patient unable to answer at this time (ie. confused, unrespo /Reproduction History /Reproductive History - environmental remediation engineer: /Reproductive Hx- environmental remediation engineer Hx Now No 05/12/24 14:13 Gestational Age (in weeks): EDC: Hx Hx Para Hx Section SAB No 05/12/24 14:13 Active Medications Active Medications: Current Medications Generic Name Dose Route Start Last Admin Trade Name Freq PRN Reason Stop Dose Admin Cefazolin Sodium 2 gm/ N/A 20 mls @ 400 mls/hr 05/13/24 12:45 IV 05/13/24 12:47 PREOP ONE PENDING SALE TO [facility] Medical History Wears glasses Wears dentures Post-menopausal Cancer Thyroid disease Diabetes Arthritis Anemia High cholesterol Heartburn Gastric reflux Former smoker CPAP (continuous positive airway pressure) dependence Sleep apnea Leg cramps History of edema History of echocardiogram History of stress test Regional lymph node metastasis present Primary fibromyalgia syndrome Chondromalacia Chronic obstructive lung disease Depression Hyperlipidemia Vitamin D deficiency Hypothyroidism Localized swelling, mass and lump, unspecified MARTELL (obstructive sleep apnea) Dyspnea Right ankle pain Home Medications ?Medication ?Instructions ?Recorded ?Last Taken ?Type duloxetine 60 mg capsule,delayed 60 mg PO DAILY 11/25/13 11/25/13 History release lovastatin 40 mg tablet 40 mg PO DAILY 11/25/13 Unknown History cholecalciferol (vitamin D3) 125 5,000 unit PO DAILY 06/25/23 Unknown History mcg (5,000 unit) capsule levothyroxine 100 mcg tablet 100 mcg PO DAILY 06/25/23 Unknown History metformin 1,000 mg tablet 1,000 mg PO BID 06/25/23 Unknown History ascorbate calcium (vitamin C) 500 500 mg PO DAILY 12/05/23 Unknown History mg tablet fluticasone fur. 100 mcg-umeclid 1 inh inhalation DAILY #3 ea 02/04/24 Unknown Rx 62.5 mcg-vilant 25 mcg inhalat.powder (Trelegy Ellipta) albuterol sulfate 90 mcg/actuation 2 puff inhalation Q6H #18 grams 03/15/24 Unknown Rx aerosol inhaler (Ventolin HFA) acetaminophen 500 mg capsule 500 mg PO Q6H PRN pain 05/12/24 Unknown History Allergy/AdvReac Type Severity Reaction Status Date / Time vaccine adjuvant system, Allergy Rash Verified 05/12/24 14:09 AS01B liposomal (From Shingrix (PF)) varicella-zoster virus Allergy Rash Verified 05/12/24 14:09 glycoprotein E, recombinant (From Shingrix (PF)) Family History Mother Heart disease CVA (cerebral vascular accident) Brain tumor Father Cancer Stomach Heart disease Surgical History History of colonoscopy History of ankle surgery History of cataract extraction Social History Smoking Status: Former smoker quit date: 06/02/16 pack-years: 63 Tobacco: How many years used: 42 Electronic Cigarette Use: not used how long ago did patient quit smokin years second hand exposure: Yes quit status: quit date established alcohol intake: never substance use type: does not use Review of Systems (Anesthesia) ROS Narrative System reviewed and no additional complaints, except as documented.
[2024-05-13 10:37] LABS: Bedside Glucose 89 mg/dL (74-106)
--- NOTE | 2024-05-13 11:39 | HP.PCM_ITS ---
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 Is patient in pain?: No Allergies vaccine adjuvant system, AS01B liposomal (From Shingrix (PF)) Allergy (Verified 05/07/24 13:13) Rashvaricella-zoster virus glycoprotein E, recombinant (From Shingrix (PF)) Allergy (Verified 05/07/24 13:13) Rash Medications ?Medication ?Instructions ?Recorded ?Confirmed ?Type duloxetine 60 mg capsule,delayed 60 mg PO DAILY 11/25/13 05/07/24 History release lovastatin 40 mg tablet 40 mg PO DAILY 11/25/13 05/07/24 History cholecalciferol (vitamin D3) 125 5,000 unit PO DAILY 06/25/23 05/07/24 History mcg (5,000 unit) capsule levothyroxine 100 mcg tablet 100 mcg PO DAILY 06/25/23 05/07/24 History levothyroxine 75 mcg tablet 88 mcg PO DAILY 30 days #36 tabs 06/25/23 05/07/24 History metformin 1,000 mg tablet 1,000 mg PO BID 06/25/23 05/07/24 History naproxen sodium 220 mg capsule 220 mg PO ONCE PRN pain 06/25/23 05/07/24 History (Aleve) ascorbate calcium (vitamin C) 500 500 mg PO DAILY 12/05/23 05/07/24 History mg tablet fluticasone fur. 100 mcg-umeclid 1 inh inhalation DAILY #3 ea 02/04/24 05/07/24 Rx 62.5 mcg-vilant 25 mcg inhalat.powder (Trelegy Ellipta) albuterol sulfate 90 mcg/actuation 2 puff inhalation Q6H #18 grams 03/15/24 05/07/24 Rx aerosol inhaler (Ventolin HFA) Have you fallen in the past year?: No [facility] Medical History (Updated 05/07/24 @ 13:[address] Nicola Prabhakar MD) Regional lymph node metastasis present Primary fibromyalgia syndrome Chondromalacia Chronic obstructive lung disease Depression Hyperlipidemia Vitamin D deficiency Hypothyroidism Localized swelling, mass and lump, unspecified MARTELL (obstructive sleep apnea) Dyspnea Right ankle pain Surgical History History of cataract extraction Family History Mother Heart disease CVA (cerebral vascular accident) Brain tumorFather Cancer Stomach Heart disease Social History Smoking Status: Former smoker quit date: 06/02/16 pack-years: 63 Tobacco: How many years used: 42 Electronic Cigarette Use: not used how long ago did patient quit smokin years second hand exposure: Yes quit status: quit date established alcohol intake: never substance use type: does not use HPI HPI HPI: Patient is a 68-year-old female here for port placement for lung cancer. ROS General General: No weight change, appetite, fatigue, colon cancer, breast cancer or weakness HEENT HEENT: No difficulty swallowing, eye injury, eye surgery, swollen glands or hoarseness Endo Endocrine: Yes diabetes mellitus; No thyroid disease, thyroid cancer, Hair loss, heat intolerance or cold intolerance Skin Skin: No rash or changing moles Breast Breast: No left breast lump, right breast lump, nipple discharge, breast pain, abnormal mammogram, abnormal US or breast enlargement Musc Musculoskeletal: Yes arthritis; No back problems, rheumatoid arthritis, gout or joint pain Cardio Cardiovascular: No murmur, pacemaker, heart disease, atrial fibrillation, high blood pressure, heart attack, heart stent, palpitations, shortness of breat with exertion or chest pain Psych Psychiatric: No depression, anxiety or hearing voices Resp Respiratory: Yes shortness of breath, Yes sleep apnea, No cough, Yes COPD, No asthma, No emphysema and No wheezing Gastro Gastrointestinal: No abdominal pain, No nausea or vomiting, No diarrhea, Yes constipation, No blood in stool, No acid reflux, Yes hemorrhoids, No ulcers, No gallbladder problem and No black,tarry stools [place] Hematologic: No blood thinners, No blood disorders, No bleeding, No anemia and No blood clots Neuro Neurologic: No system reviewed and no additional complaints, except as documented, No as per HPI, No abnormal gait, No abnormal hearing, No abnormal movements, No abnormal speech, No behavioral changes, No burning sensations, No confusion, No convulsions, No disequilibrium, No dizziness, No localized weakness, No frequent falls, No headache(s), No lack of coordination, No loss of vision, No memory loss, Yes numbness, No other visual disturbances, No radicular pain, No restless legs, No sensory deficit, No syncope, Yes tingling, No tremor(s), No weakness and No other Exam Const General: cooperative Orientation: alert and oriented x3 HENMT Head: normal to inspection Neck Neck: normal visual inspection and full ROM Chest Chest palpation & inspection: normal inspection of the chest Resp Effort & Inspection: normal respiratory effort Auscultation: clear to auscultation bilaterally Cardio Rate: regular rate Rhythm: regular rhythm GI Inspection: non-distended Palpation: soft and nontender Skin General: no rashes or lesions noted Neuro General: patient alert and patient oriented x3 Extrem General: full ROM Psych Appearance: grossly normal Mental Status: mental status grossly normal Assessment and Plan Assessment and Plan (1) Small cell lung cancer, left upper lobe: Status: Acute (2) Encounter for insertion of venous access port: Status: Acute Plan I discussed right chest port placement with the patient in detail. I discussed the risks including not limited to bleeding, infection, injury other organs or pneumothorax. Patient understands all the risks and is willing to proceed. Nicola Prabhakar MD Pager: [facility] [address] [place] [address], [address] [place] [address] Office: I have examined the patient and the H&P has been reviewed. There are no clinical changes since date of exam.
[2024-05-13] MEDS: Cefazolin 2 GM in Syringe IV (11:55)
[2024-05-13] MEDS: Lidocaine 1% /Epi 1:100 (20ml) 20 ML Vial (12:16)
[2024-05-13] MEDS: Bupivacaine Mpf 0.5% 30 ML VIAL (12:17)
--- NOTE | 2024-05-13 12:22 | OP.PCM_ITS ---
Operative Report (Standard) Operative Information Date of Procedure: 05/13/24 Pre-Operative Diagnosis: Lung cancer need for vascular access for chemotherapy Post-Operative Diagnosis: Same Surgery/Procedure Performed: Ultrasound and fluoroscopy guided right chest port placement utilizing right IJ cd storage and materials make up helper: No Type of Anesthesia: Local MAC RN Documented Start/Stop Times: Operation Date: 05/13/24 11:15 Case Time Into Pre-Op 05/13/24 09:43 Out of Pre-Op 05/13/24 11:49 Anesthesia Start 05/13/24 11:53 Into Room 05/13/24 11:53 Procedure Start 05/13/24 12:04 Procedure End 05/13/24 12:20 Procedure Start Time: :04 Procedure Stop Time: 12:20 Select all DRAINS/GRAFTS/IMPLANTS that apply: Implanted device Implanted device details: 8 [place] [employer] Estimated Blood Loss: 5 Specimen collected: No Description of surgery: After obtaining informed consent patient was brought back to the operating room MAC anesthesia was induced and the right chest and neck were prepped in normal sterile fashion. Ultrasound was used to evaluate both IJs and the right IJ was selected. Next, using a needle, the right IJ was accessed and a guidewire was passed on into the superior vena cava under fluoroscopy guidance. A small incision was made over the puncture site and the dilator introducer was placed over the guidewire. Next this was capped and the pocket was made for the port. 1% lidocaine with epinephrine was injected in the proposed port site. An incision was made with scalpel. Electrocautery was used to make a pocket under the skin and subcutaneous tissue. Hemostasis was obtained. Next, the catheter was tunneled up to the neck incision site and placed through the introducer. The peel-away introducer was removed and the position of the catheter was confirmed on fluoroscopy. Next, the catheter was trimmed and attached to the port with the locking device. Interrupted 2-0 Vicryl sutures were used to anchor the port to the chest wall and then the port was placed inside the pocket. The pocket was then flushed with saline and the port irrigated with saline. There was good blood return and the port flushed easily. Next, heparin was injected into the port. The skin was closed with subcutaneous interrupted 3-0 Vicryl sutures. A single 3-0 Vicryl sutures placed under the skin at the neck incision site. Steri-Strips were placed as well as op sites. Patient tolerated procedure well, was taken to PACU in stable condition. Chest x-ray will be obtained. Surgical Findings: None Complications Complications: No Admit VTE Documentation VTE Mechan Device Prophylaxis: SCD's
--- NOTE | 2024-05-13 12:23 | DCINST_ITS ---
Discharge Instructions Procedure Port-A-Cath Diet Discharge Diet: Light diet - advance as tolerated (Pain medication may cause nausea. You should typically eat light foods as you take your pain medication.) Activity Discharge Activity: Return to Normal Activity and May Shower (with your bandage in place in 1-2 days after surgery. DO NOT SHOWER WHEN YOUR PORT IS ACCESSED.) Dressing / Incision Call your doctor if your incision/area has: Continuous Slow Oozing, Sudden Increased Bleeding, Increased Pain/ Swelling, Increased Redness and Foul Smelling Discharge Call your doctor if you observe: Fever of 101 or Higher Remove Dressing in: 2 days Cleanse incision/area with: Soap & Water Follow Up Care Please Follow Up With: Nicola Prabhakar MD When: as needed [phone] Test Results: Test results from this visit will be discussed in further detail at your follow- up appointment, if applicable. Discharge Plan Admission Attending Provider: Nicola Prabhakar Primary Care Provider: Moriah Mott Instructions Print Language: [place] Discharge Orders/Prescriptions Prescriptions: No Action cholecalciferol (vitamin D3) 125 mcg (5,000 unit) capsule 5,000 unit PO DAILY levothyroxine 100 mcg tablet 100 mcg PO DAILY Patient Comments: TAKE 1 TABLET BY MOUTH EVERY DAY metformin 1,000 mg tablet 1,000 mg PO BID Patient Comments: Take 1 tablet by mouth twice daily ascorbate calcium (vitamin C) 500 mg tablet 500 mg PO DAILY lovastatin 40 MG tablet 40 mg PO DAILY Patient Comments: duloxetine 60 MG capsule,delayed release(DR/EC) 60 mg PO DAILY Patient Comments: acetaminophen 500 mg capsule 500 mg PO Q6H PRN (Reason: pain) Trelegy Ellipta 100-62.5-25 mcg blister with device 1 inh INHALATION DAILY Qty: 3 3RF albuterol sulfate [Ventolin HFA] 90 mcg/actuation HFA aerosol inhaler 2 puff INHALATION Q6H Qty: 18 11RF Referrals / Follow Up: Moriah Mott NP-C [Primary Care Provider] - Disposition Disposition (needs filled in before D/C Order can be placed): Home, Self Care
--- NOTE | 2024-05-13 12:26 | PCM.POST.ANE ---
Anesthesia: Postop Eval I Current Vital Signs Temperature: 97.7 F Pulse Rate: 66 Blood Pressure: 134/96 Respiratory Rate: 16 Pulse Ox: 100 Oxygen Delivery Method: Room Air Assessment Airway patent: Yes Spontaneous unlabored respirations: Yes Mental status: Awake and Calm nausea: No Vomiting: No Anesthesia Complication: No Fluid Hydration Crystalloid volume administer (ml): 10 Total IV fluid infused: 10 Progress Note Anesthesia document: Postop Eval 1 completed: Yes
--- NOTE | 2024-05-13 12:30 | RAD_ITS ---
INDICATION: line placement -- in pacu EXAMINATION/TECHNIQUE: X-RAY - XR Chest 1 View COMPARISON: CT dated February 24, 2024 and PET/CT March 30, 2024 FINDINGS: LINES/DEVICES: There is a right-sided central venous catheter in place terminating within the expected region of the superior vena cava. LUNGS: There is a vague opacity within the right lateral upper/mid lung that is slightly more pronounced than the prior examination. There is a stable nodular opacity within the left upper lung. No pneumothorax. MEDIASTINUM AND CARDIOVASCULAR STRUCTURES: Cardiac silhouette not enlarged. Central airways and mediastinal contour are unremarkable. BONES AND SOFT TISSUES: Unremarkable. RAD/CXR for Line Placement IMPRESSION: Right-sided central venous catheter terminating within the expected region of the superior vena cava. Stable nodular opacity within the left upper lung with a neoplastic process. Nonspecific opacity within the right upper/mid lateral lung, may be secondary to a confluence of shadows, cannot exclude underlying consolidation. Electronically Signed: Kayy Hendrickson MD at 12:57 EST ,
--- NOTE | 2024-05-13 16:09 | POSTOPAN2_ITS ---
Anesthesia Postop Eval I Sum Postop Eval Completion status Anesthesia document: Postop Eval 1 completed: Yes Anesthesia Postop Eval I Summary Anesthesia Postop Eval I Summary: Anesthesia Postop Eval I: Assessment Summary Airway patent Yes 05/13/24 12:27 [email or web address] Spontaneous unlabored Yes 05/13/24 12:27 UNIT COORDINATOR.[email or web address] respirations Mental status Awake,Calm 05/13/24 12:27 UNIT [email or web address] nausea No 05/13/24 12:27 UNIT COORDINATOR.[email or web address] Vomiting No 05/13/24 12:27 UNIT [email or web address] Anesthesia Postop Eval I: Fluid Summary Crystalloid volume administer 10 05/13/24 12:27 UNIT [email or web address] (ml) Colloids volume administered ( ml) Blood Product volume administered (ml) Total IV fluid infused 10 05/13/24 12:27 UNIT COORDINATOR.[email or web address] Anesthesia Postop Eval I: Summary Notes Anesthesia Complication No 05/13/24 12:27 UNIT COORDINATOR.[email or web address] Anesthesia Complication Comment: Post-operative progress note Anesthesia: Postop Eval II Evaluation Mental status: Awake and Calm Pain Level: 1 nausea: No Vomiting: No Complications Anesthesia Complication: No
--- NOTE | 2024-05-13 16:09 | PCM.POSTANE2 ---
Anesthesia Postop Eval I Sum Postop Eval Completion status Anesthesia document: Postop Eval 1 completed: Yes Anesthesia Postop Eval I Summary Anesthesia Postop Eval I Summary: Anesthesia Postop Eval I: Assessment Summary Airway patent Yes 05/13/24 12:27 HOT [email or web address] [email or web address] Spontaneous unlabored Yes 05/13/24 12:27 HOT SAW HELPER.[email or web address] respirations Mental status Awake,Calm 05/13/24 12:27 HOT SAW [email or web address] nausea No 05/13/24 12:27 HOT SAW [email or web address].[email or web address] Vomiting No 05/13/24 12:27 HOT [email or web address] [email or web address] Anesthesia Postop Eval I: Fluid Summary Crystalloid volume administer 10 05/13/24 12:27 HOT SAW [email or web address] (ml) Colloids volume administered ( ml) Blood Product volume administered (ml) Total IV fluid infused 10 05/13/24 12:27 HOT SAW HELPER.[email or web address] Anesthesia Postop Eval I: Summary Notes Anesthesia Complication No 05/13/24 12:27 HOT SAW HELPER.[email or web address] Anesthesia Complication Comment: Post-operative progress note Anesthesia: Postop Eval II Evaluation Mental status: Awake and Calm Pain Level: 1 nausea: No Vomiting: No Complications Anesthesia Complication: No
== END 2024-05-13 13:28 | disposition home or self-care (01) ==
LOC: SDC 09:41 → AC 09:42
PROVIDERS: PCP Nurse Practitioner Family; Referring Provider Surgery; Visit Provider Surgery
PROC: (CPT 36561; principal; 2024-05-13 11:00)
DX: Z45.2 Encounter for adjustment and management of vascular access device (principal); C34.12 Malignant neoplasm of upper lobe, left bronchus or lung; J44.9 Chronic obstructive pulmonary disease, unspecified; E78.5 Hyperlipidemia, unspecified; G47.33 Obstructive sleep apnea (adult) (pediatric); Z79.51 Long term (current) use of inhaled steroids; Z79.899 Other long term (current) drug therapy; Z79.84 Long term (current) use of oral hypoglycemic drugs; Z87.891 Personal history of nicotine dependence
CPT/HCPCS: 36561; 00532; 71045; 77001; 82962; A4216; C1788

== ENCOUNTER 2024-05-30 12:35 | Inpatient (IN) | payer MEDICARE, OTHER, SELFPAY ==
[2024-05-30] VITALS (23 sets, daily range): BP systolic 78–134; BP diastolic 53–92; PULSE 70–104; RESP 13–26; TEMP 36.6–37.9; O2SAT 90–100; BMI 33.5; BMI 34.9
--- NOTE | 2024-05-30 13:03 | EDS_ITS ---
HPI History of Present Illness Chief Complaint: Fever PFSH PFSH Medical History Encounter for chemotherapy management Encounter for education Wears glasses Wears dentures Post-menopausal Cancer Thyroid disease Diabetes Arthritis Anemia High cholesterol Heartburn Gastric reflux Former smoker CPAP (continuous positive airway pressure) dependence Sleep apnea Leg cramps History of edema History of echocardiogram History of stress test Regional lymph node metastasis present Primary fibromyalgia syndrome Chondromalacia Chronic obstructive lung disease Depression Hyperlipidemia Vitamin D deficiency Hypothyroidism Localized swelling, mass and lump, unspecified MARTELL (obstructive sleep apnea) Dyspnea Right ankle pain Home Medications ?Medication ?Instructions ?Recorded ?Last Taken ?Type duloxetine 60 mg capsule,delayed 60 mg PO DAILY 11/25/13 05/12/24 History release lovastatin 40 mg tablet 40 mg PO DAILY 11/25/13 05/12/24 History cholecalciferol (vitamin D3) 125 5,000 unit PO DAILY 06/25/23 05/12/24 History mcg (5,000 unit) capsule levothyroxine 100 mcg tablet 100 mcg PO DAILY 06/25/23 05/12/24 History metformin 1,000 mg tablet 1,000 mg PO BID 06/25/23 05/12/24 History ascorbate calcium (vitamin C) 500 500 mg PO DAILY 12/05/23 05/12/24 History mg tablet fluticasone fur. 100 mcg-umeclid 1 inh inhalation DAILY #3 ea 02/04/24 05/12/24 Rx 62.5 mcg-vilant 25 mcg inhalat.powder (Trelegy Ellipta) albuterol sulfate 90 mcg/actuation 2 puff inhalation Q6H #18 grams 03/15/24 Unknown Rx aerosol inhaler (Ventolin HFA) acetaminophen 500 mg capsule 500 mg PO Q6H PRN pain 05/12/24 Unknown History lidocaine-prilocaine 2.5 %-2.5 % 1 applic topical ONCE PRN port 05/17/24 Unknown Rx topical cream access 30 days #30 grams ondansetron 8 mg disintegrating 8 mg PO Q8H PRN nausea and 05/17/24 Unknown Rx tablet vomiting #30 tabs prochlorperazine maleate 10 mg 10 mg PO Q6H PRN nausea and 05/17/24 Unknown Rx tablet vomiting #30 tabs MAGIC MOUTH WASH (BMX) 180 mL 15 ml PO .qid PRN pain #180 mL 05/18/24 Unknown Rx suspension Allergy/AdvReac Type Severity Reaction Status Date / Time vaccine adjuvant system, Allergy Rash Verified 05/21/24 08:40 AS01B liposomal (From Shingrix (PF)) varicella-zoster virus Allergy Rash Verified 05/21/24 08:40 glycoprotein E, recombinant (From Shingrix (PF)) Family History Mother Heart disease CVA (cerebral vascular accident) Brain tumor Father Cancer Stomach Heart disease Surgical History History of colonoscopy History of ankle surgery History of cataract extraction Social History Smoking Status: Former smoker quit date: 06/02/16 pack-years: 63 Tobacco: How many years used: 42 Electronic Cigarette Use: not used how long ago did patient quit smokin years second hand exposure: Yes quit status: quit date established alcohol intake: never substance use type: does not use EXAM Physical Exam Const Vital Signs: 05/30/24 12:36 05/30/24 12:38 05/30/24 13:36 Temperature 99.7 F H 98 F Temperature Source Oral Oral Pulse Rate 104 H 88 Respiratory Rate 20 H 20 H Blood Pressure 105/92 H 99/80 Blood Pressure Mean 96 86 Pulse Ox 97 90 Oxygen Delivery Method Room Air Room Air Room Air 05/30/24 13:38 05/30/24 15:00 05/30/24 15:50 Temperature 98.9 F 98.9 F Temperature Source Temporal Oral Pulse Rate 82 81 79 Respiratory Rate 14 14 19 H Blood Pressure 113/65 104/60 Blood Pressure Mean 81 74 Pulse Ox 97 96 96 Oxygen Delivery Method Room Air Room Air 05/30/24 16:00 05/30/24 16:00 05/30/24 16:00 Temperature 99.4 F H 99.5 F H Temperature Source Oral Pulse Rate 87 73 75 Respiratory Rate 18 20 H 17 Blood Pressure 102/69 102/69 102/69 Blood Pressure Mean 80 80 80 Pulse Ox 96 97 96 Oxygen Delivery Method Room Air 05/30/24 16:15 05/30/24 16:17 Temperature Temperature Source Pulse Rate 76 77 Respiratory Rate 17 19 H Blood Pressure 86/65 L 87/62 L Blood Pressure Mean 73 72 Pulse Ox 98 95 Oxygen Delivery Method [facility] [place] Medical decision making narrative: HISTORY OF PRESENT ILLNESS: 68-year-old female presents with fever. Notes she is currently undergoing radiation and chemotherapy for lung cancer. She also notes diffuse weakness and nausea and vomiting. She further states she has diffuse abdominal pain and 1 episode of nonbloody nonbilious vomitus. Also notes cough that is non- productive. She denies any sick contacts. Denies chest pain. Notes she is currently not undergoing chemotherapy (last treatment ~1 month ago). Notes she is not currently smoking. She denies dysuria, hematuria, frequency or urgency. Denies headache or focal weakness. REVIEW OF SYSTEMS: Pertinent positives: Diffuse weakness, nausea vomiting, fever Pertinent negatives: As per HPI PHYSICAL EXAM: Nursing triage notes reviewed, Vital signs reviewed Constitutional: please see mdm HENT: MMM Eyes: Pupils equal round and reactive to light, Extraocular muscles intact Neck: No stridor, no JVD, full neck ROM Lungs: Clear to auscultation, No wheezing or rales. No increased work of breathing, no conversational dyspnea, no accessory muscle use, no nasal flaring. No respiratory distress noted. Right chest port clean dry intact with no stigmata of infection. Heart: Regular rate and rhythm, No murmurs, No rubs and No gallops, 2+ distal pulses (radial, femoral, posterior tibial) in all extremities Abdomen: Soft, there is no tenderness, rigidity, rebound or guarding, no obvious peritoneal signs, no palpable pulsatile abdominal masses, no auscultated abdominal bruit : No CVAT Extremities: No edema Neuro: No new focal neurological deficits, cranial nerves II through XII intact, 5/5 strength in all present extremities. Intact sensation to light touch in all present extremities, 2+ reflexes bilateral patella tendons. Skin: No rash or lesions noted MEDICAL DECISION MAKING: Chief Complaint: As per HPI External records reviewed: Reviewed prior allergies, problem list, vital signs, current medications Factors affecting care: Lung cancer, hypothyroidism, hyperlipidemia Social determinants of health: none History obtained from others: The patient's Consults: Internal medicine (Dr. Barron) [facility] Narrative: Patient was initially tachycardic, tachypneic, borderline febrile. No source of infection on initial exam. Initially treated with IV fluids and Tylenol for fever control. I considered the following differential diagnosis: Pneumonia, COVID, flu, RSV, UTI, intra-abdominal infection. Given initial tachycardia and tachypnea as well as fever a sepsis order set was used. Blood cultures, urine and urine cultures were drawn. ALL IMAGES (IF OBTAINED) HAVE BEEN PERSONALLY REVIEWED AND INTERPRETED BY MYSELF. CBC with severe neutropenia, mild anemia, thrombocytopenia (pancytopenia likely secondary to radiation chemotherapy). INR within normal limits BMP with hypokalemia, no other significant electrolyte abnormalities, no evidence of endorgan hypoperfusion with a normal anion gap, no evidence of metabolic acidosis normal bicarb Lactate is wnl indicating no end-organ hypoperfusion and/or hypoxia. LFTs show no evidence of hepatobiliary pathology. Urinalysis consistent with UTI I have personally reviewed the patient's chest x-ray. Chest x-ray is unremarkable for pulmonary edema, pneumothorax, pneumonia or focal cardiopulmonary abnormality. CT scan abdomen pelvis shows no evidence of intra-abdominal pathology The synthesis of the patient's history, physical exam, labs, images suggest neutropenic fever secondary to a UTI. The patient received broad-spectrum antibiotics given neutropenia, fever, UTI the patient will be admitted to the ICU to undergo further treatment and toawait cultures. Discussed with Dr. Barron. On reassessment patient blood pressure remained stable at 97/62, heart rate 71 improved. She is afebrile. Notification for pressors at this time. Patient is appropriate for ICU admission. The patient and/or family, caregivers express understanding. The patient and/or family, caregivers agrees with the plan. Shared decision making: I will have a discussion with the patient and or visitors regarding risk/benefits of further testing or admission. They will be made aware of of the risk/benefits inherent in this decision they will be given the opportunity to voice understanding. Total critical care time today provided was at least 0 minutes. This excludes separately billable procedures. Critical care time (if documented) is secondary to the patient having high probability of clinically significant/life threa tening deterioration in the patient's condition which required my urgent intervention. Impression: 1. Neutropenic fever 2. UTI 3. History of lung cancer Dispo: Admit to ICU This note was generated with [employer] dictation software. It may contain incorrect words, spelling, and punctuation that were not noted in review of the chart prior to signing. Lab Data Labs: Laboratory Results - last 24 hr 05/30/24 05/30/24 13:24 16:12 WBC 0.5 L* RBC 3.51 L Hgb 11.0 L Hct 33.1 L MCV 94.3 MCH 31.3 MCHC 33.2 RDW Std Deviation 41.2 RDW Coeff of Jose Manuel 12.0 Plt Count 109 L MPV 10.0 Immature Gran % (Auto) 0.000 Neut % (Auto) 9.7 L Lymph % (Auto) 42.3 H Butts % (Auto) 44.2 H Eos % (Auto) 3.8 Baso % (Auto) 0.0 Absolute Neuts (auto) 0.1 L Absolute Lymphs (auto) 0.22 L Nucleated RBC % 0 Differential Comment SCANNED Diff Path Review May foll Platelet Estimate SLT DEC Anisocytosis 1+ Ovalocytes 1+ PT 15.0 H INR 1.2 APTT 32.9 Sodium 136 Potassium 3.0 L Chloride 104 Carbon Dioxide 24.0 Anion Gap 8 BUN 7 Creatinine 0.68 Estim Creat Clear Calc 76.84 Est GFR (MDRD) Af Amer 111 Est GFR (MDRD) Non-Af 92 BUN/Creatinine Ratio 10.4 Glucose 153 H Lactic Acid 0.8 Calcium 8.8 Total Bilirubin 0.50 AST 7 L ALT 18 Alkaline Phosphatase 53 Total Protein 7.1 Albumin 3.0 L Globulin 4.1 Albumin/Globulin Ratio 0.7 L Urine Color Yellow Urine Clarity Sl. Cloudy Urine pH 6.5 Ur Specific [place] 1.010 Urine Protein 30 H Urine Glucose (UA) Normal Urine Ketones 15 H Urine Occult Blood 10 H Urine Nitrite Positive H Urine Bilirubin Negative Urine Urobilinogen Normal Ur Leukocyte Esterase Negative Urine RBC 0-5 SEEN Urine WBC 0-5 SEEN Ur Squamous Epith Cells 5-10 SEEN Urine Bacteria 2+ Urine Mucus 0 SEEN Radiography Diagnostic Testing: Clinical Impression(s) from Imaging Studies Abdomen/Pelvis CT 05/30/24 13:29 IMPRESSION: (NOT LISTED IN ORDER OF SIGNIFICANCE) There are no acute findings. Fibroid uterus. Other findings as above. Electronically Signed: Shukri Pacheco MD at 14:42 EST , Chest X-Ray 05/30/24 14:32 IMPRESSION: There are no acute findings. Electronically Signed: Shukri aPcheco MD at 15:14 EST Reading Location ID and State: [facility] / [place] , Service support , Discharge Plan Triage Chief Complaint: Fever ED Provider: Jovani Puente Dx/Rx/DC Orders Primary Care Provider: Moriah Mott
--- NOTE | 2024-05-30 13:23 | EKG12_ITS ---
Test Reason : Blood Pressure : */* mmHG Vent. Rate : 89 BPM Atrial Rate : 89 BPM P-R Int : 186 ms QRS Dur : 92 ms QT Int : 372 ms P-R-T Axes : 54 -13 41 degrees QTcB Int : 452 ms Normal sinus rhythm Normal ECG Confirmed by JASPAL MARSH, LORIN ([id number]), editor department GEOFF AZAR ([id number]) on 05/31/2024 10:47:58 AM Referred By: LALY Confirmed By: LORIN SHAY MD
--- NOTE | 2024-05-30 13:29 | CT_ITS ---
STUDY: CT Abdomen And Pelvis W/ Contrast Injection 05/30/2024 2:39 PM REASON FOR EXAM: Female, 68 years old. Abdominal pain abdominal pain, n/v Individualized dose optimization techniques were used for this CT. COMPARISON: None. TECHNIQUE: CT Abdomen And Pelvis W/ Contrast Injection IV 100mL [id number] FINDINGS: The visualized portions of the heart are within normal limits. Normal liver. Normal gallbladder and extrahepatic biliary system. Normal spleen. Normal pancreas. Normal bilateral adrenal glands. No acute findings of the right kidney. No acute findings of the left kidney. Normal visualized stomach. Normal small intestine. Stool throughout the colon. The appendix is visualized and appears normal. There are calcifications of the abdominal aorta. This is consistent for atherosclerotic disease. There is NO abdominal aortic aneurysm. Vascular workup can be obtained based on clinical correlation. Normal inferior vena cava. Subcentimeter mesenteric lymph nodes. Normal urinary bladder. The uterus is lobulated in contour. There are multiple partially calcified masses in the uterus. This is consistent for a fibroid/ myomatous uterus. Normal abdominal wall. Normal osseous structures. CT/Abdomen/Pelvis W IV Cont ONLY IMPRESSION: (NOT LISTED IN ORDER OF SIGNIFICANCE) There are no acute findings. Fibroid uterus. Other findings as above. Electronically Signed: Shukri Pacheco MD at 14:42 EST ,
[2024-05-30 13:45] LABS: Absolute Lymphocyte Count 0.22 X10^3/uL (0.83-4.51); Absolute Neutrophil Count 0.1 X10^3/uL (2.0-7.7); Eosinophil# 0.02 X10^3/uL; Eosinophils% 3.8 % (0-5); Hematocrit 33.1 % (37-47); Lymphocyte # 0.22 X10^3/ul (0.83-4.51); Lymphocyte % 42.3 % (19-41); Mean Corp Hgb Conc 33.2 g/dL (32-36); Mean Corpuscular Hgb 31.3 pg (27.0-32.0); Mean Corpuscular Volume 94.3 fL (81-99); Monocyte# 0.23 X10^3/uL; Monocyte% 44.2 % (0-10); NRBC Flagged by Analyzer 0 % (0-5); Neutrophil # 0.05 X10^3/uL (2.7-7.7); Neutrophil % 9.7 % (47-70); POSITIVE COUNT YES; POSITIVE DIFFERENTIAL YES; POSITIVE MORPHOLOGY YES; Platelet Count 109 K/mm3 (150-450); RBC Distribution Width SD 41.2 fl (35.1-43.9); Red Blood Count 3.51 M/mm3 (4.2-5.4)
[2024-05-30] MEDS: Acetaminophen 500 MG Tablet 1000 MG PO (13:52)
[2024-05-30 13:53] LABS: Differential Indicated SCAN CRITERIA MET; White Blood Count 0.5 K/mm3 (4.4-11.0)
[2024-05-30] MEDS: 0.9% Normal Saline (1000mL) 1,000 ML 999 ML IV ×3 (13:53→16:24)
[2024-05-30 14:01] LABS: International Normalized Ratio 1.2
[2024-05-30 14:02] LABS: Partial Thromboplast Time 32.9 Seconds (24.1-36.2)
[2024-05-30 14:07] LABS: ALB/GLOB Ratio 0.7 RATIO (0.9-2.4); AST(SGOT) 7 U/L (15-37); Alanine Aminotransfer ALT/SGPT 18 U/L (13-56); Alkaline Phosphatase 53 U/L (45-117); Anion Gap 8 (5-15); BUN 7 mg/dL (7-18); BUN/Creat Ratio 10.4 RATIO (10-20); Calcium,Total 8.8 mg/dL (8.5-10.1); Chloride 104 mmol/L (98-107); Creatinine, Serum 0.68 mg/dL (0.55-1.02); EST Glomerular Filtration Rate 92 mL/min (>60); Est Glom Filt Rate - Afr Amer 111 mL/min (>60); Estimated Creatinine Clearance 76.84 ml/min; Globulin 4.1 g/dL (2.2-4.2); Glucose 153 mg/dL (74-106); Protein, Total 7.1 g/dL (6.4-8.2); Sodium Level 136 mmol/L (136-145)
[2024-05-30 14:14] LABS: Lactic Acid 0.8 mmol/L (0.4-1.9)
[2024-05-30 14:26] LABS: Anisocytosis 1+; Differential Comment SCANNED; Platelet Estimate SLT DEC (ADEQ)
[2024-05-30 14:27] LABS: Ovalocyte 1+
--- NOTE | 2024-05-30 14:32 | RAD_ITS ---
STUDY: XR Chest 1 View 05/30/2024 2:31 PM REASON FOR EXAM: Female, 68 years old. cough, fever, r/o PNA COMPARISON: 05.13.24 TECHNIQUE: XR Chest 1 View FINDINGS: There is no demonstrated pleural abnormality. Right portacatheter. Normal heart size. Normal mediastinum. Normal luma. Prominent appearing increased interstitial lung markings. Normal visualized pulmonary arteries. There is atherosclerotic calcification of the aortic arch with tortuosity. There are diffuse degenerative changes of the visualized thoracic spine. There is degenerative osteoarthritis of the bilateral shoulders. There are no acute findings of the upper abdomen. RAD/Chest 1 View (Portable) IMPRESSION: There are no acute findings. Electronically Signed: Shukri Pacheco MD at 15:14 EST ,
[2024-05-30] MEDS: Piperacil/Tazobactam 3.375 GM in 0.9% Normal Saline (50mL MB+) 50 ML IV ×2 (16:02→21:17)
--- NOTE | 2024-05-30 16:05 | HP.PCM.HOS_ITS ---
HPI - General General Date of Admission: 05/30/24 Date of Service: 05/30/24 Chief Complaint: Fevers, nausea with vomiting and weakness HPI Narrative ANDREA CALIX, is a 68 F who presented to [facility] ED on 05/30/2024 with fevers, nausea with vomiting and weakness. Patient was recently diagnosed with small cell lung cancer and is undergoing chemotherapy and radiation. She follows with Drs. Merlos and Deny. She had her first cycle of carboplatin/cisplatin, etoposide and pegfilgrastim given on 05/17. Plan is for 4 cycles of this with 1 cycle per month. She has also undergone several radiation treatments in the past few weeks, unclear on exact number of fractions she has received but plan is for 30 fractions of radiation total. She did report some discomfort with swallowing and reflux symptoms on 05/24 to radiation oncology and was prescribed omeprazole and Magic mouthwash. Patient developed fevers and chills starting yesterday. She then had an episode of nausea with vomiting today and feels weaker than her normal. She called her radiation oncologist who recommended she come in for further evaluation. In the ED she had a low-grade fever to 99.7F and was hypotensive to the 80s over 60s, was otherwise hemodynamically stable on room air. Labs notable for WBC count 0.5, ANC 100, hemoglobin 11.0, platelets 109, potassium 3.0. UA showed negative leukocyte esterase, positive nitrites, 2+ bacteria. Chest x-ray was nonacute. CT abdomen pelvis was also unremarkable. Patient was given 2 L of IV fluids in the ED with some improvement in her blood pressure. Was also given doses of IV vancomycin and Zosyn. Hospitalist was then contacted for admission. I saw the patient at bedside in the ED, was present. Patient was mildly fatigued appearing but otherwise laying back comfortably in bed and in no acute distress. She reported feeling improved now from earlier today. She denied any nausea but stated she still does not have much of an appetite. She does report ongoing discomfort with swallowing and notes she had only used the Magic mouthwash for 1 day prior to coming in today. She denies any pain or discomfort with urination. On exam, her right chest port site appears clean and noninfectious. Patient denies any other new concerns at this time. [facility] Medical History Encounter for chemotherapy management Encounter for education Wears glasses Wears dentures Post-menopausal Cancer Thyroid disease Diabetes Arthritis Anemia High cholesterol Heartburn Gastric reflux Former smoker CPAP (continuous positive airway pressure) dependence Sleep apnea Leg cramps History of edema History of echocardiogram History of stress test Regional lymph node metastasis present Primary fibromyalgia syndrome Chondromalacia Chronic obstructive lung disease Depression Hyperlipidemia Vitamin D deficiency Hypothyroidism Localized swelling, mass and lump, unspecified MARTELL (obstructive sleep apnea) Dyspnea Right ankle pain Home Medications ?Medication ?Instructions ?Recorded ?Last Taken ?Type duloxetine 60 mg capsule,delayed 60 mg PO DAILY 11/25/13 05/12/24 History release lovastatin 40 mg tablet 40 mg PO DAILY 11/25/13 05/12/24 History cholecalciferol (vitamin D3) 125 5,000 unit PO DAILY 06/25/23 05/12/24 History mcg (5,000 unit) capsule levothyroxine 100 mcg tablet 100 mcg PO DAILY 06/25/23 05/12/24 History metformin 1,000 mg tablet 1,000 mg PO BID 06/25/23 05/12/24 History ascorbate calcium (vitamin C) 500 500 mg PO DAILY 12/05/23 05/12/24 History mg tablet fluticasone fur. 100 mcg-umeclid 1 inh inhalation DAILY #3 ea 02/04/24 05/12/24 Rx 62.5 mcg-vilant 25 mcg inhalat.powder (Trelegy Ellipta) albuterol sulfate 90 mcg/actuation 2 puff inhalation Q6H #18 grams 03/15/24 Unknown Rx aerosol inhaler (Ventolin HFA) acetaminophen 500 mg capsule 500 mg PO Q6H PRN pain 05/12/24 Unknown History lidocaine-prilocaine 2.5 %-2.5 % 1 applic topical ONCE PRN port 05/17/24 Unknown Rx topical cream access 30 days #30 grams ondansetron 8 mg disintegrating 8 mg PO Q8H PRN nausea and 05/17/24 Unknown Rx tablet vomiting #30 tabs prochlorperazine maleate 10 mg 10 mg PO Q6H PRN nausea and 05/17/24 Unknown Rx tablet vomiting #30 tabs MAGIC MOUTH WASH (BMX) 180 mL 15 ml PO .qid PRN pain #180 mL 05/18/24 Unknown Rx suspension Allergy/AdvReac Type Severity Reaction Status Date / Time vaccine adjuvant system, Allergy Rash Verified 05/21/24 08:40 AS01B liposomal (From Shingrix (PF)) varicella-zoster virus Allergy Rash Verified 05/21/24 08:40 glycoprotein E, recombinant (From Shingrix (PF)) Family History Mother Heart disease CVA (cerebral vascular accident) Brain tumor Father Cancer Stomach Heart disease Surgical History History of colonoscopy History of ankle surgery History of cataract extraction Social History Smoking Status: Former smoker quit date: 06/02/16 pack-years: 63 Tobacco: How many years used: 42 Electronic Cigarette Use: not used how long ago did patient quit smokin years second hand exposure: Yes quit status: quit date established alcohol intake: never substance use type: does not use ROS Constitutional Constitutional: Reports chills, fatigue, fever(s) and weakness Eyes Eyes: Denies change in vision Cardiovascular Cardiovascular: Denies chest pain Respiratory/Chest Respiratory/Chest: Denies cough, shortness of breath at rest, shortness of breath with exertion or wheezing Gastrointestinal Gastrointestinal: Reports nausea and vomiting; Denies abdominal pain, constipation or diarrhea Genitourinary Genitourinary: Denies dysuria Musculoskeletal Musculoskeletal: Denies arthralgias or myalgias Neurologic Neurologic: Denies dizziness, focal weakness or headache(s) Vital Signs Vital Signs Vital Signs: 05/30/24 12:36 05/30/24 12:38 05/30/24 13:36 Temperature 99.7 F H 98 F Temperature Source Oral Oral Pulse Rate 104 H 88 Respiratory Rate 20 H 20 H Blood Pressure 105/92 H 99/80 Blood Pressure Mean 96 86 Pulse Ox 97 90 Oxygen Delivery Method Room Air Room Air Room Air 05/30/24 13:38 05/30/24 15:00 Temperature 98.9 F 98.9 F Temperature Source Temporal Oral Pulse Rate 82 81 Respiratory Rate 14 14 Blood Pressure 113/65 104/60 Blood Pressure Mean 81 74 Pulse Ox 97 96 Oxygen Delivery Method Room Air Room Air Weight Weight: 94.4 kg Body Mass Index (BMI) 33.5 Physical Exam Const alert, oriented x3 and no apparent distress Constitutional Narrative: Elderly female, class I obesity, mildly fatigued appearing, otherwise laying back comfortably in bed, conversing normally, in no acute distress. General Appearance: cooperative and comfortable HEENT normocephalic, head/scalp atraumatic, hearing grossly normal bilaterally, nasal mucous membranes and turbinates normal and moist oral mucous membranes HEENT Narrative: Several small white patches noted on the tongue. No erythema noted on tongue or on palate. Eyes PERRL, EOMs intact bilaterally and conjunctivae normal Neck full ROM Chest inspection of chest normal Resp normal respiratory effort and no use of accessory muscles Resp Narrative: Breathing comfortably on room air at rest. Good breath sounds bilaterally with no wheezing or crackles noted. Cardio regular rate, regular rhythm, no murmurs and peripheral pulses 2+ throughout GI normal to inspection, nondistended, normoactive bowel sounds, soft to palpation, non-tender and non-distended Back/Spine normal ROM Extremity normal to inspection, full ROM and no pedal edema Skin no rashes or lesions noted Neuro moves all extremities and no focal motor deficits Speech: speech normal Motor Exam: strength 5/5 throughout Psych mental status grossly normal Results Lab / Micro Data 05/30/24 13:24 05/30/24 13:24 Labs: Laboratory Results - last 24 hr 05/30/24 13:24: WBC 0.5 L*, RBC 3.51 L, Hgb 11.0 L, Hct 33.1 L, MCV 94.3, MCH 31.3, MCHC 33.2, RDW Std Deviation 41.2, RDW Coeff of Jose Manuel 12.0, Plt Count 109 L, MPV 10.0, Immature Gran % (Auto) 0.000, Neut % (Auto) 9.7 L, Lymph % (Auto) 42.3 H, [place] % (Auto) 44.2 H, Eos % (Auto) 3.8, Baso % (Auto) 0.0, Absolute Neuts (auto) 0.1 L, Absolute Lymphs (auto) 0.22 L, Nucleated RBC % 0, Differential Comment SCANNED, Diff Path Review September, Platelet Estimate SLT DEC, Anisocytosis 1+, Ovalocytes 1+, PT 15.0 H, INR 1.2, APTT 32.9, Sodium 136, P otassium 3.0 L, Chloride 104, Carbon Dioxide 24.0, Anion Gap 8, BUN 7, Creatinine 0.68, Estim Creat Clear Calc 76.84, Est GFR (MDRD) Af Amer 111, Est GFR (MDRD) Non-Af 92, BUN/Creatinine Ratio 10.4, Glucose 153 H, Lactic Acid 0.8, Calcium 8.8, Total Bilirubin 0.50, AST 7 L, ALT 18, Alkaline Phosphatase 53, Total Protein 7.1, Albumin 3.0 L, Globulin 4.1, Albumin/Globulin Ratio 0.7 L Micro: Microbiology 05/30/24 13:55 Mucosa - Nose SARS-CoV-2, Influenza & RSV (PCR) - Final Imaging Radiology Impression Abdomen/Pelvis CT 05/30/24 13:29 IMPRESSION: (NOT LISTED IN ORDER OF SIGNIFICANCE) There are no acute findings. Fibroid uterus. Other findings as above. Electronically Signed: Shukri Pacheco MD at 14:42 EST , Chest X-Ray 05/30/24 14:32 IMPRESSION: There are no acute findings. Electronically Signed: Shukri Pacheco MD at 15:14 EST , Assessment & Plan Assessment/Plan (1) Sepsis: (2) Neutropenic fever: PLAN: Plan Patient is a 68-year-old female who presented [facility] ED on 05/30/2024 with fevers, nausea with vomiting and weakness. 1. Sepsis with neutropenic fever with unclear source of infection, concern for UTI ? Admit under inpatient status to ICU. Butcher'S Assistant, infectious disease and oncology consulted. Patient met SIRS criteria on admit with tachycardia and leukopenia and given she has Medicare part A and B she meets sepsis criteria. Given 3 L of normal saline on admit with good improvement in blood pressure. Unclear source of infection at this time. Urine is mildly infectious appearing the patient denies any UTI symptoms. Patient has oral candidiasis but seems unlikely she has invasive esophageal candidiasis. Will treat with IV vancomycin and Zosyn for now. Blood cultures and urine culture ordered. Treating candidiasis with nystatin as noted below. Monitor daily labs. Neutropenic precautions in place. Appreciate specialist recommendations. 2. Oral candidiasis ? Noted on exam on admit. Will treat with oral nystatin 4 times daily for now. 3. Hypokalemia ? Potassium 3.0 on admit. Mag and Phos ordered. Replete potassium as needed. 4. Small cell lung cancer on active chemoradiation therapy ? Follows with oncology and radiation oncology. See HPI for further details. Oncology consulted for further recommendations as noted above. 5. Mild anemia and thrombocytopenia ? Hemoglobin 11.0, baseline around 12. Platelets 106, baseline in the 200s. Presume these findings are secondary to recent chemotherapy. Monitor daily labs. 6. Mild acute debility ? PT/OT/case management consulted. Patient with acute weakness presumed secondary to recent chemotherapy and radiation treatments and decreased p.o. intake recently. Chronic medical conditions: ? Class I obesity: BMI 34 on admit. Complicates hospital course, care and prognosis. ? Hypothyroidism: Continue home Synthroid. ? Type 2 diabetes mellitus: Hold home metformin. A1c 6.2% on admit. Will treat with sliding scale insulin with meals while inpatient. ? Depression: Stable. Continue home duloxetine. ? Hyperlipidemia: Continue home statin. ? COPD: Stable on room air, not in acute exacerbation. Continue home inhalers. DVT prophylaxis: Lovenox CODE STATUS: Full code, verified Expected disposition: Home, TBD Total clinical time spent by myself addressing the patient's medical issues, reviewing all the data, and collaborating with patient's care team: 75 minutes. Sepsis Attestation Sepsis Alert: Yes Sepsis Attestation: Agree w/Sepsis Date exam was performed: 05/30/24 Time exam was performed: 15:00 Possible Source of Sepsis: Unknown Sepsis Organ Dysfunction Criteria Present: SBP < 90 mmHg or MAP < 65 mmHg Supportive Findings: Met SIRS criteria with tachycardia and leukopenia on admit. Fluid Resuscitation Fluid resuscitation indicated?: Yes Fluid Resuscitation ordered: 30 ml/kg fluid bolus ordered Amount of fluid ordered: 3,000 Sepsis Note Date exam was performed: 05/30/24 Time exam was performed: 19:00 Sepsis Attestation: Sepsis re-evaluation was performed Response to fluids: Fluid responsive hypotension Charges/Coding Visit Charges Inpatient E&M: 62981 Init Hosp L3
[2024-05-30 16:18] LABS: Mucous, Urine 0 SEEN /hpf (<or=2+)
[2024-05-30 16:23] LABS: Color, Urine Yellow (Yellow); Glucose, Dipstick Normal (Normal); Ketone-Dipstick 15 mg/dl (Negative); Leukocyte Esterase-Dipstick Negative /ul (Negative); Nitrite-Dipstick Positive (Negative); Occult Blood-Urine 10 /ul (Negative); Protein-Dipstick 30 mg/dl (Negative); Urine Bilirubin Dipstick Negative (Negative); Urine Clarity Sl. Cloudy (Clear); Urine Urobilinogen Normal (Normal); Urine pH 6.5 (5.0 - 8.0)
[2024-05-30 16:36] LABS: Red Blood Cells-Urine 0-5 SEEN /hpf (0-5); Squamous Epithelial Cells - UA 5-10 SEEN /hpf (5-10)
[2024-05-30 16:37] LABS: Bacteria 2+ /hpf (None Seen); White Blood Cells 0-5 SEEN /hpf (0-5)
[2024-05-30] MEDS: Vancomycin HCl 1,500 MG in 0.9% Normal Saline (500mL Bag) 500 ML 250 MG IV (17:30)
--- NOTE | 2024-05-30 18:48 | PCM.RX.CS ---
Consult Antibiotic Management Pharmacy has been consulted to manage selected antibiotic: Vancomycin Type of Intervention Type of Consult: New start Suspected Infection Suspected Infection: Other (NEUTROPENIC FEVER) Labs Labs: Sodium 136 mmol/L (136-145) 05/30/24 13:24 Potassium 3.0 mmol/L (3.5-5.1) L 05/30/24 13:24 Chloride 104 mmol/L (98-107) 05/30/24 13:24 Carbon Dioxide 24.0 mmol/L (21.0-32.0) 05/30/24 13:24 Anion Gap 8 (5-15) 05/30/24 13:24 BUN 7 mg/dL (7-18) 05/30/24 13:24 Creatinine 0.68 mg/dL (0.55-1.02) 05/30/24 13:24 Est GFR (MDRD) Af Amer 111 mL/min (>60) 05/30/24 13:24 Est GFR (MDRD) Non-Af 92 mL/min (>60) 05/30/24 13:24 BUN/Creatinine Ratio 10.4 RATIO (10-20) 05/30/24 13:24 Glucose 153 mg/dL (74-106) H 05/30/24 13:24 Microbiology Microbiology: Microbiology 05/30/24 13:55 Mucosa - Nose SARS-CoV-2, Influenza & RSV (PCR) - Final Dosing Weight Weight used for dosin.4 kg Estimated Creatinine Clearance Estimated Creatinine Clearance: 80ML/MIN Goal Trough Goal Trough: 15-20 mcg/mL Pharmacy Plan for Drug Dosing Pharmacy Plan for Drug Dosing: NEW START IV VANCOMYCIN Consulting Physician: Dr. Barron Indication: Neutropenic Fever Goal Trough: 15-20 SrCr: 0.68 CrCl: 80ml/min Comments: pt received a 1500mg x1 dose in the ER on 05/30/24 at 1730 Vancomycin Dose: based on patients weight and renal function, recommend an initial dose of 1250mg q12h starting 05/31/24 at 0600. trough prior to the 4th total dose. Note: trough/dose calculations based on clinical pharmacology dosing calculator Pending Level: 06/01/24 at 0530 Pharmacy Service will continue to monitor and adjust dosing as required. Follow-Up Labs Follow-Up Labs: Trough: Vancomycin (06/01/24 AT 0530)
[2024-05-30 19:45] LABS: Hemoglobin A1c 6.2 % (3.8-5.6)
[2024-05-30] MEDS: Potassium Chloride 20mEq/100mL 20 MEQ/100 ML IV.SOLN. 100 MEQ IV BOLUS ×3 (21:16→23:09)
[2024-05-30] MEDS: NYSTATIN 500,000 UNIT/5 ML UDC 500000 UNIT PO (21:17)
[2024-05-30] MEDS: Atorvastatin Calcium 10 MG Tablet PO (21:17)
[2024-05-30] MEDS: Potassium Chloride Oral Tablet 20 MEQ 40 MEQ PO (21:17)
[2024-05-30] MEDS: 0.9 % NaCl (Sterile) Posiflush 10 mL IV (21:17)
[2024-05-30] MEDS: Albuterol 2.5 MG/3 ML VIAL.NEB. INHALATION (21:28)
[2024-05-30 21:39] LABS: Magnesium 1.6 mg/dL (1.6-2.6); Phosphorus 1.6 mg/dL (2.5-4.9)
[2024-05-30 21:44] LABS: Bedside Glucose 117 mg/dL (74-106)
[2024-05-31] VITALS (15 sets, daily range): BP systolic 104–129; BP diastolic 57–84; PULSE 77–88; RESP 16–25; TEMP 36.8–38.2; O2SAT 95–99; BMI 34.8
[2024-05-31] MEDS: Potassium Chloride 20mEq/100mL 20 MEQ/100 ML IV.SOLN. 100 MEQ IV BOLUS (00:11)
[2024-05-31] MEDS: Magnesium Sulfate 2 GM in Dextrose 5%-Water (100mL Bag) 100 ML IV (01:31)
[2024-05-31 05:10] LABS: Absolute Lymphocyte Count 0.22 X10^3/uL (0.83-4.51); Eosinophil# 0.02 X10^3/uL; Eosinophils% 3.1 % (0-5); Hematocrit 28.2 % (37-47); Hemoglobin 9.3 g/dL (12.0-15.0); Lymphocyte # 0.22 X10^3/ul (0.83-4.51); Lymphocyte % 34.4 % (19-41); Mean Corpuscular Hgb 31.4 pg (27.0-32.0); Mean Corpuscular Volume 95.3 fL (81-99); Mean Platelet Vol. 9.8 fl (6.2-12.0); Monocyte# 0.33 X10^3/uL; Monocyte% 51.6 % (0-10); NRBC Flagged by Analyzer 0 % (0-5); Neutrophil # 0.04 X10^3/uL (2.7-7.7); Neutrophil % 6.2 % (47-70); POSITIVE COUNT YES; POSITIVE DIFFERENTIAL YES; POSITIVE MORPHOLOGY YES; Platelet Count 125 K/mm3 (150-450); RBC Distribution Width SD 41.5 fl (35.1-43.9); Red Blood Count 2.96 M/mm3 (4.2-5.4)
[2024-05-31 05:14] LABS: Differential Indicated SCAN CRITERIA MET
[2024-05-31 05:15] LABS: White Blood Count 0.6 K/mm3 (4.4-11.0)
[2024-05-31 05:24] LABS: Anion Gap 3 (5-15); BUN 6 mg/dL (7-18); BUN/Creat Ratio 9.5 RATIO (10-20); Calcium,Total 8.2 mg/dL (8.5-10.1); Chloride 108 mmol/L (98-107); Creatinine, Serum 0.63 mg/dL (0.55-1.02); EST Glomerular Filtration Rate 99 mL/min (>60); Est Glom Filt Rate - Afr Amer 120 mL/min (>60); Estimated Creatinine Clearance 75.61 ml/min; Glucose 129 mg/dL (74-106); Potassium 4.1 mmol/L (3.5-5.1); Sodium Level 136 mmol/L (136-145)
[2024-05-31] MEDS: Vancomycin HCl 1,250 MG in 0.9% Normal Saline (250mL Bag) 250 ML 167 MG IV (05:25)
[2024-05-31] MEDS: Levothyroxine 100 MCG Tablet PO (06:35)
[2024-05-31 07:02] LABS: Bedside Glucose 106 mg/dL (74-106)
[2024-05-31 07:05] LABS: Atypical Lymphocyte 2+ %; Differential Comment SCANNED
[2024-05-31] MEDS: Albuterol 2.5 MG/3 ML VIAL.NEB. INHALATION ×3 (07:26→19:20)
[2024-05-31] MEDS: Piperacil/Tazobactam 3.375 GM in 0.9% Normal Saline (50mL MB+) 50 ML IV ×3 (07:57→22:27)
--- NOTE | 2024-05-31 08:45 | EX.PCM.CONCC ---
Assessment & Plan Assessment/Plan (1) Neutropenic fever: PLAN: Plan RECOMMENDATIONS: 1. Continue antimicrobials, pending culture results. 2. Electrolyte repletion as needed. 3. Continue appropriate DVT prophylaxis. 4. Encourage incentive spirometer use and mobilize patient as tolerated. 5. The patient is medically stable for transfer out of the intensive care unit. IMPRESSIONS: 1. Neutropenic fever Clinical concern for underlying UTI as potential inciting factor. No other definitive source of infection has yet to be identified. Cultures are currently pending. The patient remains on empiric broad-spectrum antimicrobials with stable hemodynamic status. 2. History of small cell lung cancer The patient is currently receiving chemotherapy and undergoing radiation treatment. This can be resumed upon discharge from the hospital. 3. Pancytopenia/generalized weakness/restrictive lung disease/hypothyroidism/depression Complicates care, management, recovery and prognosis. Continue home medications as indicated. This note was generated with [employer] dictation software. It may contain incorrect words, spelling, and punctuation that were not noted in checking the note before signing. HPI Consult Data Date of Consult: 05/31/24 HPI Narrative Reason for Consultation: Neutropenic fever HPI Narrative: The patient is a 68-year-old female, with a history as outlined below, who presented to the emergency department on May 30 with generalized weakness and fever. The patient was recently diagnosed with small cell lung cancer and is currently undergoing chemotherapy and radiation. It was recommended to her to present to the emergency department after she developed a fever. She has a known history of restrictive lung disease, but did not require supplemental oxygen during her last 6-minute walk test in April 2024. On presentation to the emergency department, the patient was documented to be febrile with a temperature of 99.7 ?F. She was mildly tachycardic and tachypneic, but otherwise hemodynamically stable. Laboratory evaluation revealed evidence of pancytopenia. Chemistry profile was notable for a potassium of 3.0. Lactate was within normal limits. Urine analysis was positive for nitrates and 2+ urine bacteria. CT abdomen/pelvis demonstrated no acute findings. Chest x-ray demonstrated no acute cardiopulmonary process. The patient received supplemental IV fluid hydration and was initiated on antimicrobial therapy. Overnight, the patient has remained clinically stable with low-grade fevers and normal hemodynamic status. [facility] Medical History Encounter for chemotherapy management Encounter for education Wears glasses Wears dentures Post-menopausal Cancer Thyroid disease Diabetes Arthritis Anemia High cholesterol Heartburn Gastric reflux Former smoker CPAP (continuous positive airway pressure) dependence Sleep apnea Leg cramps History of edema History of echocardiogram History of stress test Regional lymph node metastasis present Primary fibromyalgia syndrome Chondromalacia Chronic obstructive lung disease Depression Hyperlipidemia Vitamin D deficiency Hypothyroidism Localized swelling, mass and lump, unspecified MARTELL (obstructive sleep apnea) Dyspnea Right ankle pain Home Medications ?Medication ?Instructions ?Recorded ?Last Taken ?Type duloxetine 60 mg capsule,delayed 60 mg PO DAILY 11/25/13 05/12/24 History release lovastatin 40 mg tablet 40 mg PO DAILY 11/25/13 05/12/24 History cholecalciferol (vitamin D3) 125 5,000 unit PO DAILY 06/25/23 05/12/24 History mcg (5,000 unit) capsule levothyroxine 100 mcg tablet 100 mcg PO DAILY 06/25/23 05/12/24 History metformin 1,000 mg tablet 1,000 mg PO BID 06/25/23 05/12/24 History ascorbate calcium (vitamin C) 500 500 mg PO DAILY 12/05/23 05/12/24 History mg tablet fluticasone fur. 100 mcg-umeclid 1 inh inhalation DAILY #3 ea 02/04/24 05/12/24 Rx 62.5 mcg-vilant 25 mcg inhalat.powder (Trelegy Ellipta) albuterol sulfate 90 mcg/actuation 2 puff inhalation Q6H #18 grams 03/15/24 Unknown Rx aerosol inhaler (Ventolin HFA) acetaminophen 500 mg capsule 500 mg PO Q6H PRN pain 05/12/24 Unknown History lidocaine-prilocaine 2.5 %-2.5 % 1 applic topical ONCE PRN port 05/17/24 Unknown Rx topical cream access 30 days #30 grams ondansetron 8 mg disintegrating 8 mg PO Q8H PRN nausea and 05/17/24 Unknown Rx tablet vomiting #30 tabs prochlorperazine maleate 10 mg 10 mg PO Q6H PRN nausea and 05/17/24 Unknown Rx tablet vomiting #30 tabs MAGIC MOUTH WASH (BMX) 180 mL 15 ml PO .qid PRN pain #180 mL 05/18/24 Unknown Rx suspension Allergy/AdvReac Type Severity Reaction Status Date / Time vaccine adjuvant system, Allergy Rash Verified 05/21/24 08:40 AS01B liposomal (From Shingrix (PF)) varicella-zoster virus Allergy Rash Verified 05/21/24 08:40 glycoprotein E, recombinant (From Shingrix (PF)) Family History Mother Heart disease CVA (cerebral vascular accident) Brain tumor Father Cancer Stomach Heart disease Surgical History History of colonoscopy History of ankle surgery History of cataract extraction Social History Smoking Status: Former smoker quit date: 06/02/16 pack-years: 63 Tobacco: How many years used: 42 Electronic Cigarette Use: not used how long ago did patient quit smokin years second hand exposure: Yes quit status: quit date established alcohol intake: never substance use type: does not use ROS ROS Narrative 10 systems were reviewed with pertinent positives as noted in the HPI above. Physical Exam Const alert and no apparent distress General Appearance: cooperative HEENT normocephalic and head/scalp atraumatic Eyes EOMs intact bilaterally, conjunctivae normal and no scleral icterus Neck supple General: trachea midline Chest inspection of chest normal Resp normal respiratory effort Auscultation: diminished lung sounds; Negative for rales, rhonchi or wheezes Cardio regular rate and regular rhythm GI normal to inspection, nondistended, normoactive bowel sounds Extremity no clubbing, cyanosis or edema Skin no rashes or lesions noted Neuro CN's II-XII intact bilaterally, moves all extremities and no focal motor deficits Psych cooperative and affect normal Lab / Micro Data 05/31/24 05:00 05/31/24 05:00 Labs: Laboratory Results - last 24 hr 05/30/24 13:24: WBC 0.5 L*, RBC 3.51 L, Hgb 11.0 L, Hct 33.1 L, MCV 94.3, MCH 31.3, MCHC 33.2, RDW Std Deviation 41.2, RDW Coeff of Jose Manuel 12.0, Plt Count 109 L, MPV 10.0, Immature Gran % (Auto) 0.000, Neut % (Auto) 9.7 L, Lymph % (Auto) 42.3 H, [place] % (Auto) 44.2 H, Eos % (Auto) 3.8, Baso % (Auto) 0.0, Absolute Neuts (auto) 0.1 L, Absolute Lymphs (auto) 0.22 L, Nucleated RBC % 0, Differential Comment SCANNED, Diff Path Review May , Platelet Estimate SLT DEC, Anisocytosis 1+, Ovalocytes 1+, PT 15.0 H, INR 1.2, APTT 32.9, Sodium 136, Potassium 3.0 L, Chloride 104, Carbon Dioxide 24.0, Anion Gap 8, BUN 7, Creatinine 0.68, Estim Creat Clear Calc 76.84, Est GFR (MDRD) Af Amer 111, Est GFR (MDRD) Non-Af 92, BUN/Creatinine Ratio 10.4, Glucose 153 H, Hemoglobin A1c 6.2 H, Lactic Acid 0.8, Calcium 8.8, Total Bilirubin 0.50, AST 7 L, ALT 18, Alkaline Phosphatase 53, Total Protein 7.1, Albumin 3.0 L, Globulin 4.1, Albumin/Globulin Ratio 0.7 L 05/30/24 16:12: Urine Color Yellow, Urine Clarity Sl. Cloudy, Urine pH 6.5, Ur Specific [place] 1.010, Urine Protein 30 H, Urine Glucose (UA) Normal, Urine Ketones 15 H, Urine Occult Blood 10 H, Urine Nitrite Positive H, Urine Bilirubin Negative, Urine Urobilinogen Normal, Ur Leukocyte Esterase Negative, Urine RBC 0-5 SEEN, Urine WBC 0-5 SEEN, Ur Squamous Epith Cells 5-10 SEEN, Urine Bacteria 2+, Urine Mucus 0 SEEN 05/30/24 21:10: Phosphorus 1.6 L, Magnesium 1.6 05/30/24 21:11: POC Glucose 117 H 05/31/24 05:00: WBC 0.6 L*, RBC 2.96 L, Hgb 9.3 L, Hct 28.2 L, MCV 95.3, MCH 31.4, MCHC 33.0, RDW Std Deviation 41.5, RDW Coeff of Jose Manuel 12.0, Plt Count 125 L, MPV 9.8, Immature Gran % (Auto) 4.700 H, Neut % (Auto) 6.2 L, Lymph % (Auto) 34.4, [place] % (Auto) 51.6 H, Eos % (Auto) 3.1, Baso % (Auto) 0.0, Absolute Neuts (auto) 0.0 L, Absolute Lymphs (auto) 0.22 L, Nucleated RBC % 0, Differential Comment SCANNED, Diff Path Review May foll, Atypical Lymphocytes 2+, Sodium 136, Potassium 4.1, Chloride 108 H, Carbon Dioxide 25.0, Anion Gap 3 L, BUN 6 L, Creatinine 0.63, Estim Creat Clear Calc 75.61, Est GFR (MDRD) Af Amer 120, Est GFR (MDRD) Non-Af 99, BUN/Creatinine Ratio 9.5 L, Glucose 129 H, Calcium 8.2 L 05/31/24 06:37: POC Glucose 106 Micro: Microbiology 05/30/24 13:55 Mucosa - Nose SARS-CoV-2, Influenza & RSV (PCR) - Final Imaging Radiology Impression Abdomen/Pelvis CT 05/30/24 13:29 IMPRESSION: (NOT LISTED IN ORDER OF SIGNIFICANCE) There are no acute findings. Fibroid uterus. Other findings as above. Electronically Signed: Shukri Pacheco MD at 14:42 EST , Chest X-Ray 05/30/24 14:32 IMPRESSION: There are no acute findings. Electronically Signed: Shukri Pacheco MD at 15:14 EST , Charges/Coding Visit Charges Inpatient E&M: 25540 Init Hosp L3
[2024-05-31] MEDS: DULoxetine Hcl 60 MG Capsule PO (09:44)
[2024-05-31] MEDS: NYSTATIN 500,000 UNIT/5 ML UDC 500000 UNIT PO ×4 (09:44→21:16)
[2024-05-31] MEDS: Na Biphos/Potassium Phosphate PACKET 1 PACKET PO ×4 (09:44→21:16)
[2024-05-31] MEDS: Enoxaparin 40 MG/0.4 ML Syringe SC (09:44)
--- NOTE | 2024-05-31 11:42 | CASEMGMT ---
ADÁN BRITO Assessment: Face to Face with pt for initial transition planning/care coordination assessment. ADÁN BRITO introduced self and role at [facility], pt voices understanding and consents to assessment. Pt is A&O x4 and answers all questions appropriately at this time. Pt sitting up in bed in no distress. Care providers, pharmacy, and demographics verified/updated. Strata: 2 Admitting Dx: Neutropenic fever and sepsis PCP: [facility] Specialists: Angel, Oncologist; Preferred Pharmacy: [facility] Insurance: [facility] Prescription Benefit: yes LNOK: , Keenan; Son, Davon. Living Arrangements: Pt lives with in a 2 story home with 3 steps to enter. ADLs: Pt states I at baseline. Transportation: Pt drives self and denies concerns with transportation. DME: Walker, cane, bedside commode, shower bench. HHC/SNF: Denies Hx of. Pt states no concerns with going home at time of dc. Has support from and been in contact with direction home to assist if needed down the road with cancer diagnosis. Pt states no further concerns/needs. CM to follow. Advised pt to ask CM if any further question/concerns/needs arise, voices understanding. Pt Goal: Home Plan: Home, follow plan of care for safe [place] home. Cedric MCCAIN CM
[2024-05-31 11:50] LABS: Bedside Glucose 105 mg/dL (74-106)
--- NOTE | 2024-05-31 12:08 | CHAPLAIN ---
Type of Pastoral Visit _x__ Initial Visit ___ Follow-up Visit ___ On-call Visit ___ General Patient Visit ___ Spiritual Assessment ___ Family Conference ___ Bereavement ___ Rapid Response ___ Code Blue ___ Other (describe below) Pastoral Care Referral From _x__ Patient ___ Family ___ Nurse ___ Physician ___ Record Label Intern ___ Sample Sawyer ___ Other (describe below) Sacrament/Intervention _x__ Active listening ___ Anointing ___ Orthodoxy ___ Bereavement ___ Communion _x__ Gertrudis exploration ___ ___ Life review _x__ Prayer ___ Reconciliation ___ Sacrament of Sick _x__ Supportive presence ___ Wedding ___ Other (describe below) Pastoral Comments patient is concluding a phone call with her spouse and when she hangs up she is tearful; asked about her needs and feelings, the patient admits to having some anxiety but also affirms that she has gertrudis in God; explored her feelings of anxiety and discovered that the unknowns are what are the most concerning; pt's hair has begun to fall out and she mentions this too with some discouragement and apprehension; pt speaks of her being baptized and her father giving her wisdom from the Bible in the past as helpful to her now; pt is not connected to a baptist at this time but welcomes spiritual care support and prayer now
--- NOTE | 2024-05-31 12:08 | PCM.PN.HOSP ---
Reason for Visit Reason for Visit: Diagnoses Sepsis, unspecified organism (05/30/24) Neutropenia, unspecified (05/30/24) Fever presenting with conditions classified elsewhere (05/30/24) Subjective Subjective Saw patient at bedside this morning. Patient was laying back comfortably in bed in no acute distress. Reported feeling improved today from yesterday. Denied any fevers or chills overnight. No other new concerns today. Objective Data Objective Data Vital Signs: Vital Signs Temp Pulse Resp BP Pulse Ox O2 Del Method 100.3 F H 81 18 129/66 H 95 Room Air 05/31/24 06:00 05/31/24 07:28 05/31/24 07:28 05/31/24 07:00 05/31/24 07:00 05/31/24 10:00 Oxygen Delivery Method Room Air Weight: 94.9 kg Body Mass Index (BMI) 34.8 Intake & Output: Intake and Output for Last 24 Hours 05/29/24 05/30/24 05/31/24 23:59 23:59 23:59 Intake Total 3768.33 / 4068.33 1129 / 1129 Output Total 600 / 1050 800 / 800 Balance 3168.33 / 3018.33 329 / 329 Medical Nutrition Assessment Dietitian: Malnutrition Criteria Met Start: 05/31/24 10:10 Freq: Status: Active Protocol: Document 05/31/24 10:10 AUDI (Rec: 05/31/24 10:10 AUDI [id number]) Nutrition Malnutrition Evidence of Malnutrition Exists Yes Malnutrition (severe): Acute Illness/Injury Evidenced By Suboptimal Energy Intake ( Severe),Weight Loss (Severe) Clinical Problem Acute Disease or Injury Related Malnutrition Etiology related to lung cancer and radiation tx w/ inadequate energy intake Signs/Symptoms as evidenced by 2.9% unintended wt loss and po intake meeting <75% of est nutritional needs 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 Status Active Problem Recommendation Dietitian Recommendations/Changes Change diet to liberal regular diet d/t signs and symptoms of malnutrition - does not want modified consistency diet despite raw throat/tongue. Will order 8 oz glucerna shake tid w/ meals for increased nutrition if consumed Lab / Micro Data 05/31/24 05:00 05/31/24 05:00 Labs: Laboratory Results - last 24 hr 05/30/24 13:24: WBC 0.5 L*, RBC 3.51 L, Hgb 11.0 L, Hct 33.1 L, MCV 94.3, MCH 31.3, MCHC 33.2, RDW Std Deviation 41.2, RDW Coeff of Jose Manuel 12.0, Plt Count 109 L, MPV 10.0, Immature Gran % (Auto) 0.000, Neut % (Auto) 9.7 L, Lymph % (Auto) 42.3 H, [place] % (Auto) 44.2 H, Eos % (Auto) 3.8, Baso % (Auto) 0.0, Absolute Neuts (auto) 0.1 L, Absolute Lymphs (auto) 0.22 L, Nucleated RBC % 0, Differential Comment SCANNED, Diff Path Review September, Platelet Estimate SLT DEC, Anisocytosis 1+, Ovalocytes 1+, PT 15.0 H, INR 1.2, APTT 32.9, Sodium 136, Potassium 3.0 L, Chloride 104, Carbon Dioxide 24.0, Anion Gap 8, BUN 7, Creatinine 0.68, Estim Creat Clear Calc 76.84, Est GFR (MDRD) Af Amer 111, Est GFR (MDRD) Non-Af 92, BUN/Creatinine Ratio 10.4, Glucose 153 H, Hemoglobin A1c 6.2 H, Lactic Acid 0.8, Calcium 8.8, Total Bilirubin 0.50, AST 7 L, ALT 18, Alkaline Phosphatase 53, Total Protein 7.1, Albumin 3.0 L, Globulin 4.1, Albumin/Globulin Ratio 0.7 L 05/30/24 16:12: Urine Color Yellow, Urine Clarity Sl. Cloudy, Urine pH 6.5, Ur Specific [place] 1.010, Urine Protein 30 H, Urine Glucose (UA) Normal, Urine Ketones 15 H, Urine Occult Blood 10 H, Urine Nitrite Positive H, Urine Bilirubin Negative, Urine Urobilinogen Normal, Ur Leukocyte Esterase Negative, Urine RBC 0-5 SEEN, Urine WBC 0-5 SEEN, Ur Squamous Epith Cells 5-10 SEEN, Urine Bacteria 2+, Urine Mucus 0 SEEN 05/30/24 21:10: Phosphorus 1.6 L, Magnesium 1.6 05/30/24 21:11: POC Glucose 117 H 05/31/24 05:00: WBC 0.6 L*, RBC 2.96 L, Hgb 9.3 L, Hct 28.2 L, MCV 95.3, MCH 31.4, MCHC 33.0, RDW Std Deviation 41.5, RDW Coeff of Jose Manuel 12.0, Plt Count 125 L, MPV 9.8, Immature Gran % (Auto) 4.700 H, Neut % (Auto) 6.2 L, Lymph % (Auto) 34.4, [place] % (Auto) 51.6 H, Eos % (Auto) 3.1, Baso % (Auto) 0.0, Absolute Neuts (auto) 0.0 L, Absolute Lymphs (auto) 0.22 L, Nucleated RBC % 0, Differential Comment SCANNED, Diff Path Review September foll, Atypical Lymphocytes 2+, Sodium 136, Potassium 4.1, Chloride 108 H, Carbon Dioxide 25.0, Anion Gap 3 L, BUN 6 L, Creatinine 0.63, Estim Creat Clear Calc 75.61, Est GFR (MDRD) Af Amer 120, Est GFR (MDRD) Non-Af 99, BUN/Creatinine Ratio 9.5 L, Glucose 129 H, Calcium 8.2 L 05/31/24 06:37: POC Glucose 106 05/31/24 11:29: POC Glucose 105 Micro: Microbiology 05/30/24 13:55 Mucosa - Nose SARS-CoV-2, Influenza & RSV (PCR) - Final Radiography Diagnostic Testing: Radiology Impression Abdomen/Pelvis CT 05/30/24 13:29 IMPRESSION: (NOT LISTED IN ORDER OF SIGNIFICANCE) There are no acute findings. Fibroid uterus. Other findings as above. Electronically Signed: Shukri Pacheco MD at 14:42 EST , Chest X-Ray 05/30/24 14:32 IMPRESSION: There are no acute findings. Electronically Signed: Shukri Pacheco MD at 15:14 EST , Physical Exam Const alert, oriented x3 and no apparent distress Constitutional Narrative: Elderly female, class I obesity, energy improved from admission, laying back comfortably in bed, conversing normally, in no acute distress. General Appearance: cooperative and comfortable HEENT normocephalic, head/scalp atraumatic, hearing grossly normal bilaterally, nasal mucous membranes and turbinates normal and moist oral mucous membranes HEENT Narrative: Several small white patches noted on the tongue. No erythema noted on tongue or on palate. Stable. Eyes PERRL, EOMs intact bilaterally and conjunctivae normal Neck full ROM Chest inspection of chest normal Resp normal respiratory effort and no use of accessory muscles Resp Narrative: Breathing comfortably on room air at rest. Good breath sounds bilaterally with no wheezing or crackles noted. Cardio regular rate, regular rhythm, no murmurs and peripheral pulses 2+ throughout GI normal to inspection, nondistended, normoactive bowel sounds, soft to palpation, non-tender and non-distended Back/Spine normal ROM Extremity normal to inspection, full ROM and no pedal edema Skin no rashes or lesions noted Neuro moves all extremities and no focal motor deficits Speech: speech normal Motor Exam: strength 5/5 throughout Psych mental status grossly normal Assessment & Plan Assessment/Plan (1) Sepsis: (2) Neutropenic fever: PLAN: Plan Patient is a 68-year-old female who presented [facility] ED on 05/30/2024 with fevers, nausea with vomiting and weakness. 1. Sepsis with neutropenic fever with unclear source of infection, concern for UTI ? Oncology and infectious disease following. Manager Of Construction evaluated. Patient met SIRS criteria on admit with tachycardia and leukopenia and given she has Medicare part A and B she meets sepsis criteria. Given 3 L of normal saline on admit with good improvement in blood pressure. Unclear source of infection at this time. Urine is mildly infectious appearing the patient denies any UTI symptoms. Patient has oral candidiasis but seems unlikely she has invasive esophageal candidiasis. Continue treatment with IV vancomycin and Zosyn for now. Oncology gave dose of filgrastim on 05/31. Blood cultures and urine culture pending. Treating candidiasis with nystatin as noted below. Neutropenic precautions in place. Monitor daily labs. Stable for transfer to PCU on 05/31. 2. Oral candidiasis ? Noted on exam on admit. Continue treatment with oral nystatin 4 times daily. 3. Hypokalemia, resolved; hypophosphatemia ? Potassium 3.0 on admit. Mag 1.6, Phos 1.6. Monitor daily labs and replete electrolytes as needed. 4. Small cell lung cancer on active chemoradiation therapy ? Follows with oncology and radiation oncology. See HPI for further details. Oncology following as above. 5. Mild anemia and thrombocytopenia ? Hemoglobin 11.0, baseline around 12. Platelets 106, baseline in the 200s. Presume these findings are secondary to recent chemotherapy. Hemoglobin decreased to 9.3 on hospital day 2, presume secondary to IV fluid resuscitation. Will send anemia labs for the sake of completeness. Continue to monitor daily labs. 6. Mild acute debility ? PT/OT/case management following. Patient with acute weakness presumed secondary to recent chemotherapy and radiation treatments and decreased p.o. intake recently. Will be okay for home on discharge either with home health care or outpatient therapy. Chronic medical conditions: ? Class I obesity: BMI 34 on admit. Complicates hospital course, care and prognosis. ? Hypothyroidism: Continue home Synthroid. ? Type 2 diabetes mellitus: Hold home metformin. A1c 6.2% on admit. Continue treatment with sliding scale insulin with meals while inpatient. ? Depression: Stable. Continue home duloxetine. ? Hyperlipidemia: Continue home statin. ? COPD: Stable on room air, not in acute exacerbation. Continue home inhalers. DVT prophylaxis: Lovenox CODE STATUS: Full code, verified Expected disposition: Home, 2 to 3 days Total clinical time spent by myself addressing the patient's medical issues, reviewing all the data, and collaborating with patient's care team: 35 minutes. Charges/Coding Visit Charges Inpatient E&M: 00950 Subs Hosp L2
--- NOTE | 2024-05-31 12:57 | ONC.CONSULT ---
Assessment & Plan Assessment/Plan (1) Neutropenic fever: Status: Acute Code(s): D70.9 - Neutropenia, unspecified; R50.81 - Fever presenting with conditions classified elsewhere Plan: Due to chemotherapy Cisplatin and Etoposide. ANC 0. Suggest starting GCSF 480mcg daily in addition to Antibiotics till ANC is greater than 1000. If she improves and discharged, she should follow up in Oncology clinic. HPI Consult Data Date of Service:: 05/31/24 PCP / Referring Provider: ANNETTE Willis Attending: Dr. Aj Barron DO Chief Complaint Chief Complaint: Asked to see Pt for neutropenic fever. History of Present Illness History of Present Illness: 68-year-old woman was diagnosed with small cell lung cancer Stage IIIB(cT1 cN3 M0) on 04/26/2024 after FOB and EBUS at [facility]. She started chemotherapy with cisplatin and etoposide on 05/17/2024 with radiation therapy. She developed a fever on 05/30/2024 and came to the ER, was found to have WBC of 0.5 and ANC of 0.1. She is now admitted to [facility] ICU and started on broad-spectrum antibiotics, this morning ANC is 0. She is feeling better. Advanced Directives Power of Kiln Operator: No Living Will: No [facility] Medical History Encounter for chemotherapy management Encounter for education Wears glasses Wears dentures Post-menopausal Cancer Thyroid disease Diabetes Arthritis Anemia High cholesterol Heartburn Gastric reflux Former smoker CPAP (continuous positive airway pressure) dependence Sleep apnea Leg cramps History of edema History of echocardiogram History of stress test Regional lymph node metastasis present Primary fibromyalgia syndrome Chondromalacia Chronic obstructive lung disease Depression Hyperlipidemia Vitamin D deficiency Hypothyroidism Localized swelling, mass and lump, unspecified MARTELL (obstructive sleep apnea) Dyspnea Right ankle pain Home Medications ?Medication ?Instructions ?Recorded ?Last Taken ?Type duloxetine 60 mg capsule,delayed 60 mg PO DAILY 11/25/13 05/12/24 History release lovastatin 40 mg tablet 40 mg PO DAILY 11/25/13 05/12/24 History cholecalciferol (vitamin D3) 125 5,000 unit PO DAILY 06/25/23 05/12/24 History mcg (5,000 unit) capsule levothyroxine 100 mcg tablet 100 mcg PO DAILY 06/25/23 05/12/24 History metformin 1,000 mg tablet 1,000 mg PO BID 06/25/23 05/12/24 History ascorbate calcium (vitamin C) 500 500 mg PO DAILY 12/05/23 05/12/24 History mg tablet fluticasone fur. 100 mcg-umeclid 1 inh inhalation DAILY #3 ea 02/04/24 05/12/24 Rx 62.5 mcg-vilant 25 mcg inhalat.powder (Trelegy Ellipta) albuterol sulfate 90 mcg/actuation 2 puff inhalation Q6H #18 grams 03/15/24 Unknown Rx aerosol inhaler (Ventolin HFA) acetaminophen 500 mg capsule 500 mg PO Q6H PRN pain 05/12/24 Unknown History lidocaine-prilocaine 2.5 %-2.5 % 1 applic topical ONCE PRN port 05/17/24 Unknown Rx topical cream access 30 days #30 grams ondansetron 8 mg disintegrating 8 mg PO Q8H PRN nausea and 05/17/24 Unknown Rx tablet vomiting #30 tabs prochlorperazine maleate 10 mg 10 mg PO Q6H PRN nausea and 05/17/24 Unknown Rx tablet vomiting #30 tabs MAGIC MOUTH WASH (BMX) 180 mL 15 ml PO .qid PRN pain #180 mL 05/18/24 Unknown Rx suspension Allergy/AdvReac Type Severity Reaction Status Date / Time vaccine adjuvant system, Allergy Rash Verified 05/21/24 08:40 AS01B liposomal (From Shingrix (PF)) varicella-zoster virus Allergy Rash Verified 05/21/24 08:40 glycoprotein E, recombinant (From Shingrix (PF)) Family History Mother Heart disease CVA (cerebral vascular accident) Brain tumor Father Cancer Stomach Heart disease Surgical History History of colonoscopy History of ankle surgery History of cataract extraction Social History Smoking Status: Former smoker quit date: 06/02/16 pack-years: 63 Tobacco: How many years used: 42 Electronic Cigarette Use: not used how long ago did patient quit smokin years second hand exposure: Yes quit status: quit date established alcohol intake: never substance use type: does not use ROS Constitutional Constitutional: Denies chills, fatigue or fever(s) ENT HEENT: Denies dysphagia, hoarseness or loss taste/smell Cardiovascular Cardiovascular: Reports clubbing; Denies chest pain or dyspnea at rest Respiratory/Chest Respiratory/Chest: Denies chest tightness, cough or dyspnea Gastrointestinal Gastrointestinal: Denies abdominal pain or anorexia Genitourinary Genitourinary: Denies change in urinary stream or testicular mass Musculoskeletal Musculoskeletal: Denies limited range of motion or muscle weakness Integumentary Integumentary: Denies jaundice Neurologic Neurologic: Denies abnormal speech or headache(s) Psychiatric Psychiatric: Denies anxiety Endocrine Endocrinology: Denies heat intolerance Hematologic/Lymphatic Hematologic/Lymphatic: Denies easy bleeding, easy bruising or lymphadenopathy Physical Exam Const alert, oriented x3 and no apparent distress HEENT normocephalic and oropharynx normal Eyes PERRL, EOMs intact bilaterally, conjunctivae normal and no scleral icterus Neck No no lymphadenopathy and supple Lymph Lymphatic: no lymphadenopathy noted Chest Chest Narrative: +Port R IC area Resp normal respiratory effort and clear to auscultation bilaterally Cardio regular rate, regular rhythm, S1 normal heart sound, S2 normal heart sound and no murmurs GI normal to inspection, nondistended, normoactive bowel sounds Extremity normal to inspection, no clubbing, cyanosis or edema and no calf tenderness Skin no rashes or lesions noted Neuro CN's II-XII intact bilaterally, moves all extremities, no focal motor deficits and no sensory deficits noted Psych mental status grossly normal Vital Signs Temperature 100.3 F H 05/31/24 06:00 Temperature Source Temporal 05/31/24 06:00 Pulse Rate 81 05/31/24 07:28 Pulse Strength Normal (2+) 05/31/24 09:12 Respiratory Rate 18 05/31/24 07:28 Respiratory Effort Normal, Non-Labored 05/31/24 10:00 Respiratory Depth Normal 05/31/24 10:00 Respiratory Pattern Normal 05/31/24 10:00 Blood Pressure 129/66 H 05/31/24 07:00 Blood Pressure Mean 87 05/31/24 07:00 Blood Pressure Source Monitor 05/31/24 07:00 Blood Pressure Position Semi-Fowlers 05/31/24 07:00 Blood Pressure Location Left Arm 05/31/24 07:00 Pulse Ox 95 05/31/24 07:00 Oxygen Delivery Method Room Air 05/31/24 10:00 Laboratory Results - last 24 hr 05/30/24 13:24: WBC 0.5 L*, RBC 3.51 L, Hgb 11.0 L, Hct 33.1 L, MCV 94.3, MCH 31.3, MCHC 33.2, RDW Std Deviation 41.2, RDW Coeff of Jose Manuel 12.0, Plt Count 109 L, MPV 10.0, Immature Gran % (Auto) 0.000, Neut % (Auto) 9.7 L, Lymph % (Auto) 42.3 H, [place] % (Auto) 44.2 H, Eos % (Auto) 3.8, Baso % (Auto) 0.0, Absolute Neuts (auto) 0.1 L, Absolute Lymphs (auto) 0.22 L, Nucleated RBC % 0, Differential Comment SCANNED, Diff Path Review September, Platelet Estimate SLT DEC, Anisocytosis 1+, Ovalocytes 1+, PT 15.0 H, INR 1.2, APTT 32.9, Sodium 136, Potassium 3.0 L, Chloride 104, Carbon Dioxide 24.0, Anion Gap 8, BUN 7, Creatinine 0.68, Estim Creat Clear Calc 76.84, Est GFR (MDRD) Af Amer 111, Est GFR (MDRD) Non-Af 92, BUN/Creatinine Ratio 10.4, Glucose 153 H, Hemoglobin A1c 6.2 H, Lactic Acid 0.8, Calcium 8.8, Total Bilirubin 0.50, AST 7 L, ALT 18, Alkaline Phosphatase 53, Total Protein 7.1, Albumin 3.0 L, Globulin 4.1, Albumin/Globulin Ratio 0.7 L 05/30/24 16:12: Urine Color Yellow, Urine Clarity Sl. Cloudy, Urine pH 6.5, Ur Specific [place] 1.010, Urine Protein 30 H, Urine Glucose (UA) Normal, Urine Ketones 15 H, Urine Occult Blood 10 H, Urine Nitrite Positive H, Urine Bilirubin Negative, Urine Urobilinogen Normal, Ur Leukocyte Esterase Negative, Urine RBC 0-5 SEEN, Urine WBC 0-5 SEEN, Ur Squamous Epith Cells 5-10 SEEN, Urine Bacteria 2+, Urine Mucus 0 SEEN 05/30/24 21:10: Phosphorus 1.6 L, Magnesium 1.6 05/30/24 21:11: POC Glucose 117 H 05/31/24 05:00: WBC 0.6 L*, RBC 2.96 L, Hgb 9.3 L, Hct 28.2 L, MCV 95.3, MCH 31.4, MCHC 33.0, RDW Std Deviation 41.5, RDW Coeff of [place] 12.0, Plt Count 125 L, MPV 9.8, Immature Gran % (Auto) 4.700 H, Neut % (Auto) 6.2 L, Lymph % (Auto) 34.4, [place] % (Auto) 51.6 H, Eos % (Auto) 3.1, Baso % (Auto) 0.0, Absolute Neuts (auto) 0.0 L, Absolute Lymphs (auto) 0.22 L, Nucleated RBC % 0, Differential Comment SCANNED, Diff Path Review May foll, Atypical Lymphocytes 2+, Sodium 136, Potassium 4.1, Chloride 108 H, Carbon Dioxide 25.0, Anion Gap 3 L, BUN 6 L, Creatinine 0.63, Estim Creat Clear Calc 75.61, Est GFR (MDRD) Af Amer 120, Est GFR (MDRD) Non-Af 99, BUN/Creatinine Ratio 9.5 L, Glucose 129 H, Calcium 8.2 L 05/31/24 06:37: POC Glucose 106 05/31/24 11:29: POC Glucose 105 Microbiology 05/30/24 13:55 Mucosa - Nose SARS-CoV-2, Influenza & RSV (PCR) - Final Diagnostic Data Abdomen/Pelvis CT 05/30/24 13:29 IMPRESSION: (NOT LISTED IN ORDER OF SIGNIFICANCE) There are no acute findings. Fibroid uterus. Other findings as above. Electronically Signed: Shukri Pacheco MD at 14:42 EST , Chest X-Ray 05/30/24 14:32 IMPRESSION: There are no acute findings. Electronically Signed: Shukri Pacheco MD at 15:14 EST ,
[2024-05-31] MEDS: TBO-FILGRASTIM 480 MCG/0.8 ML ML SC (13:24)
[2024-05-31 14:10] LABS: Ferritin 206 ng/mL (8-252); Iron 16 ug/dL (50-170); Iron Binding Capacity,Total 176 ug/dL (250-450); PERCENT IRON SATURATION 9.1 % (15.0-55.0)
[2024-05-31 14:18] LABS: Vitamin B12 300 pg/mL (211-911)
--- NOTE | 2024-05-31 14:50 | PCM.CONS.GEN ---
Assessment & Plan Assessment/Plan (1) Neutropenic fever: PLAN: Will continue Zosyn and continue supportive care. Will discontinue parenteral vancomycin. Reviewed oncology note the recommended G-CSF. Follow microbiology data and clinical course. HPI Consult Data Date of Consult: 05/31/24 HPI Narrative Reason for Consultation: Neutropenic fever HPI Narrative: ANDREA CALIX, is a 68 F who presents past medical history of recently diagnosed small cell lung carcinoma and has been receiving radiation therapy and recently started systemic chemotherapy via right chest port who was admitted with fever and generalized malaise. Patient was brought to the hospital and currently in the ICU. Patient is responsive and appears comfortable on room air. Found to be neutropenic related to her systemic chemotherapy. No pleuritic chest pain. No significant gastrointestinal distress. No skin lesions or rashes. Admission blood cultures are pending. Urine culture grew out gram-negative pathogen. [facility] Medical History Encounter for chemotherapy management Encounter for education Wears glasses Wears dentures Post-menopausal Cancer Thyroid disease Diabetes Arthritis Anemia High cholesterol Heartburn Gastric reflux Former smoker CPAP (continuous positive airway pressure) dependence Sleep apnea Leg cramps History of edema History of echocardiogram History of stress test Regional lymph node metastasis present Primary fibromyalgia syndrome Chondromalacia Chronic obstructive lung disease Depression Hyperlipidemia Vitamin D deficiency Hypothyroidism Localized swelling, mass and lump, unspecified MARTELL (obstructive sleep apnea) Dyspnea Right ankle pain Home Medications ?Medication ?Instructions ?Recorded ?Last Taken ?Type duloxetine 60 mg capsule,delayed 60 mg PO DAILY 11/25/13 05/12/24 History release lovastatin 40 mg tablet 40 mg PO DAILY 11/25/13 05/12/24 History cholecalciferol (vitamin D3) 125 5,000 unit PO DAILY 06/25/23 05/12/24 History mcg (5,000 unit) capsule levothyroxine 100 mcg tablet 100 mcg PO DAILY 06/25/23 05/12/24 History metformin 1,000 mg tablet 1,000 mg PO BID 06/25/23 05/12/24 History ascorbate calcium (vitamin C) 500 500 mg PO DAILY 12/05/23 05/12/24 History mg tablet fluticasone fur. 100 mcg-umeclid 1 inh inhalation DAILY #3 ea 02/04/24 05/12/24 Rx 62.5 mcg-vilant 25 mcg inhalat.powder (Trelegy Ellipta) albuterol sulfate 90 mcg/actuation 2 puff inhalation Q6H #18 grams 03/15/24 Unknown Rx aerosol inhaler (Ventolin HFA) acetaminophen 500 mg capsule 500 mg PO Q6H PRN pain 05/12/24 Unknown History lidocaine-prilocaine 2.5 %-2.5 % 1 applic topical ONCE PRN port 05/17/24 Unknown Rx topical cream access 30 days #30 grams ondansetron 8 mg disintegrating 8 mg PO Q8H PRN nausea and 05/17/24 Unknown Rx tablet vomiting #30 tabs prochlorperazine maleate 10 mg 10 mg PO Q6H PRN nausea and 05/17/24 Unknown Rx tablet vomiting #30 tabs MAGIC MOUTH WASH (BMX) 180 mL 15 ml PO .qid PRN pain #180 mL 05/18/24 Unknown Rx suspension Allergy/AdvReac Type Severity Reaction Status Date / Time vaccine adjuvant system, Allergy Rash Verified 05/21/24 08:40 [id number] liposomal (From Shingrix (PF)) varicella-zoster virus Allergy Rash Verified 05/21/24 08:40 glycoprotein E, recombinant (From Shingrix (PF)) Family History Mother Heart disease CVA (cerebral vascular accident) Brain tumor Father Cancer Stomach Heart disease Surgical History History of colonoscopy History of ankle surgery History of cataract extraction Social History Smoking Status: Former smoker quit date: 06/02/16 pack-years: 63 Tobacco: How many years used: 42 Electronic Cigarette Use: not used how long ago did patient quit smokin years second hand exposure: Yes quit status: quit date established alcohol intake: never substance use type: does not use ROS ROS Narrative As stated in history of present illness others negative Physical Exam Narrative Alert responsive does not appear toxic lungs are clear heart exam S1-S2 abdomen soft nontender. Port in right chest Medical Records Data Medical Nutrition Assessment Dietitian: Malnutrition Criteria Met Start: 05/31/24 10:10 Freq: Status: Active Protocol: Document 05/31/24 10:10 SLA (Rec: 05/31/24 10:10 AUDI [id number]) Nutrition Malnutrition Evidence of Malnutrition Exists Yes Malnutrition (severe): Acute Illness/Injury Evidenced By Suboptimal Energy Intake ( Severe),Weight Loss (Severe) Clinical Problem Acute Disease or Injury Related Malnutrition Etiology related to lung cancer and radiation tx w/ inadequate energy intake Signs/Symptoms as evidenced by 2.9% unintended wt loss and po intake meeting <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 Will order 8 oz glucerna shake tid w/ meals for increased nutrition if consumed Lab / Micro Data 05/31/24 05:00 05/31/24 05:00 Labs: Laboratory Results - last 24 hr 05/30/24 13:24: Hemoglobin A1c 6.2 H 05/30/24 16:12: Urine Color Yellow, Urine Clarity Sl. Cloudy, Urine pH 6.5, Ur Specific [place] 1.010, Urine Protein 30 H, Urine Glucose (UA) Normal, Urine Ketones 15 H, Urine Occult Blood 10 H, Urine Nitrite Positive H, Urine Bilirubin Negative, Urine Urobilinogen Normal, Ur Leukocyte Esterase Negative, Urine RBC 0-5 SEEN, Urine WBC 0-5 SEEN, Ur Squamous Epith Cells 5-10 SEEN, Urine Bacteria 2+, Urine Mucus 0 SEEN 05/30/24 21:10: Phosphorus 1.6 L, Magnesium 1.6 05/30/24 21:11: POC Glucose 117 H 05/31/24 05:00: WBC 0.6 L*, RBC 2.96 L, Hgb 9.3 L, Hct 28.2 L, MCV 95.3, MCH 31.4, MCHC 33.0, RDW Std Deviation 41.5, RDW Coeff of Jose Manuel 12.0, Plt Count 125 L, MPV 9.8, Immature Gran % (Auto) 4.700 H, Neut % (Auto) 6.2 L, Lymph % (Auto) 34.4, [place] % (Auto) 51.6 H, Eos % (Auto) 3.1, Baso % (Auto) 0.0, Absolute Neuts (auto) 0.0 L, Absolute Lymphs (auto) 0.22 L, Nucleated RBC % 0, Differential Comment SCANNED, Diff Path Review September foll, Atypical Lymphocytes 2+, Sodium 136, Potassium 4.1, Chloride 108 H, Carbon Dioxide 25.0, Anion Gap 3 L, BUN 6 L, Creatinine 0.63, Estim Creat Clear Calc 75.61, Est GFR (MDRD) Af Amer 120, Est GFR (MDRD) Non-Af 99, BUN/Creatinine Ratio 9.5 L, Glucose 129 H, Calcium 8.2 L, Iron 16 L, TIBC 176 L, Iron Saturation 9.1 L, Ferritin 206, Folate 18.50 05/31/24 06:37: POC Glucose 106 05/31/24 11:29: POC Glucose 105 05/31/24 13:25: Vitamin B12 300 Micro: Microbiology 05/30/24 16:12 Urine, Clean Catch Urine Culture - Preliminary Gram negative iain 05/30/24 13:55 Mucosa - Nose SARS-CoV-2, Influenza & RSV (PCR) - Final Imaging Radiology Impression Chest X-Ray 05/30/24 14:32 IMPRESSION: There are no acute findings. Electronically Signed: Shukri Pacheco MD at 15:14 EST ,
[2024-05-31 15:33] LABS: Pathologist Review Reviewed
[2024-05-31 15:33] LABS: Pathologist Review Reviewed
[2024-05-31 16:57] LABS: Bedside Glucose 101 mg/dL (74-106)
[2024-05-31] MEDS: Atorvastatin Calcium 10 MG Tablet PO (21:16)
[2024-05-31 21:57] LABS: Bedside Glucose 117 mg/dL (74-106)
[2024-06-01] VITALS (9 sets, daily range): BP systolic 94–125; BP diastolic 67–84; PULSE 75–84; RESP 18–23; TEMP 36.2–36.6; O2SAT 93–98; BMI 34.6
[2024-06-01 03:06] LABS: Absolute Lymphocyte Count 0.44 X10^3/uL (0.83-4.51); Absolute Neutrophil Count 0.7 X10^3/uL (2.0-7.7); Basophil# 0.02 X10^3/uL; Basophil% 1.2 % (0-1); Eosinophil# 0.03 X10^3/uL; Eosinophils% 1.7 % (0-5); Hematocrit 27.3 % (37-47); Hemoglobin 9.1 g/dL (12.0-15.0); Lymphocyte # 0.44 X10^3/ul (0.83-4.51); Lymphocyte % 25.4 % (19-41); Mean Corp Hgb Conc 33.3 g/dL (32-36); Mean Corpuscular Hgb 31.6 pg (27.0-32.0); Mean Corpuscular Volume 94.8 fL (81-99); Mean Platelet Vol. 9.8 fl (6.2-12.0); Monocyte% 28.9 % (0-10); NRBC Flagged by Analyzer 0 % (0-5); Neutrophil # 0.71 X10^3/uL (2.7-7.7); Neutrophil % 41.1 % (47-70); POSITIVE DIFFERENTIAL YES; POSITIVE MORPHOLOGY YES; Platelet Count 193 K/mm3 (150-450); RBC Distribution Width CV 12.1 % (11.6-14.6); RBC Distribution Width SD 41.8 fl (35.1-43.9); Red Blood Count 2.88 M/mm3 (4.2-5.4); White Blood Count 1.7 K/mm3 (4.4-11.0)
[2024-06-01 03:20] LABS: Albumin, Serum 2.5 g/dL (3.2-5.0); BUN 5 mg/dL (7-18); BUN/Creat Ratio 8.8 RATIO (10-20); Calcium,Total 8.1 mg/dL (8.5-10.1); Chloride 106 mmol/L (98-107); Creatinine, Serum 0.57 mg/dL (0.55-1.02); EST Glomerular Filtration Rate 112 mL/min (>60); Est Glom Filt Rate - Afr Amer 136 mL/min (>60); Estimated Creatinine Clearance 75.61 ml/min; Glucose 114 mg/dL (74-106); Phosphorus 2.2 mg/dL (2.5-4.9); Potassium 3.4 mmol/L (3.5-5.1); Sodium Level 137 mmol/L (136-145)
[2024-06-01 03:28] LABS: Differential Indicated SCAN CRITERIA MET
[2024-06-01 05:08] LABS: Atypical Lymphocyte 1+ %; Differential Comment SCANNED
[2024-06-01] MEDS: Piperacil/Tazobactam 3.375 GM in 0.9% Normal Saline (50mL MB+) 50 ML IV ×2 (06:20→13:14)
[2024-06-01] MEDS: Levothyroxine 100 MCG Tablet PO (06:21)
[2024-06-01 09:07] LABS: Bedside Glucose 97 mg/dL (74-106)
[2024-06-01] MEDS: NYSTATIN 500,000 UNIT/5 ML UDC 500000 UNIT PO ×2 (09:10→13:14)
[2024-06-01] MEDS: Na Biphos/Potassium Phosphate PACKET 1 PACKET PO ×2 (09:10→13:13)
[2024-06-01] MEDS: DULoxetine Hcl 60 MG Capsule PO (09:10)
[2024-06-01] MEDS: Enoxaparin 40 MG/0.4 ML Syringe SC (09:10)
[2024-06-01 11:58] LABS: Bedside Glucose 133 mg/dL (74-106)
[2024-06-01] MEDS: 0.9 % NaCl (Sterile) Posiflush 10 mL IV (13:20)
--- NOTE | 2024-06-01 13:45 | PCM.PN.ID ---
ID ID: Route of nutrition/ use of supplements: [] Nutritional Intake: [] IV Site: [] Sierra Catheter: [] Patient is out of bed to a chair overall clinically stable. Had uneventful night. Blood cultures remain negative. No further fever. Clinically looks well. Microbiology data reviewed On exam her vitals are stable remains euthermic lungs are clear heart exam S1-S2 abdomen soft nontender Assessment & Plan Assessment/Plan (1) Neutropenic fever: PLAN: Bone marrow recovering nicely with resolution of her neutropenia. Okay to go home on Bactrim 1 double strength tablet twice a day for 5 days.
[2024-06-01] MEDS: Albuterol 2.5 MG/3 ML VIAL.NEB. INHALATION (13:48)
--- NOTE | 2024-06-01 13:48 | PCM.DC ---
Discharge Instructions Diet Discharge Diet: No restrictions DC O2, CPAP, BIPAP needs PSN CPAP & BiPAP: BiPAP & CPAP Settings per PSN Mode BiPAP 06/01/24 07:45 Bipap Delivery Device Face Mask 06/01/24 07:45 BiPAP Inspiratory Pressure 18 06/01/24 07:45 BiPAP Expiratory Pressure 14 06/01/24 07:45 Fraction of Inspired Oxygen ( 21 06/01/24 07:45 FIO2) Home O2 Discharge instructions: No Dressing / Incision Discharge Activity: No Restrictions Follow Up Care Test Results: Test results from this visit will be discussed in further detail at your follow-up appointment, if applicable. Discharge Plan Admission Admit Date/Time: 05/30/24 16:18 Primary Reason for Your Visit: Fevers, nausea with vomiting and weakness Attending Provider: Aj Barron Primary Care Provider: Moriah Mott Consulting Providers: Rodri Harrington; Jacoby Diaz; Jamie Ortiz; Reilly Garzon; Maxi Merlos; Rodri Parr; Jeff Medina; Hemal Esteban; Nicolas Barclay; Leighann Arellano PROPULSION MOTOR AND GENERATOR REPAIRER Instructions Additional Instructions / Restrictions: ? Take Bactrim twice daily for 5 more days to complete course of antibiotics. ? Use the nystatin swish and swallow 4 times daily for 7 more days. ? Follow-up with oncology and radiation oncology in the office soon. Discharge Orders/Prescriptions Prescriptions: New sulfamethoxazole-trimethoprim [Bactrim DS] 800-160 mg tablet 1 tab PO BID 5 Days Qty: 10 0RF nystatin 100,000 unit/mL suspension 4 ml PO Q6H 7 Days Qty: 473 0RF Rx Instructions: swish and swallow Continued cholecalciferol (vitamin D3) 125 mcg (5,000 unit) capsule 5,000 unit PO DAILY levothyroxine 100 mcg tablet 100 mcg PO DAILY Patient Comments: TAKE 1 TABLET BY MOUTH EVERY DAY metformin 1,000 mg tablet 1,000 mg PO BID Patient Comments: Take 1 tablet by mouth twice daily ascorbate calcium (vitamin C) 500 mg tablet 500 mg PO DAILY prochlorperazine maleate 10 mg tablet 10 mg PO Q6H PRN (Reason: nausea and vomiting) Qty: 30 2RF ondansetron 8 mg tablet,disintegrating 8 mg PO Q8H PRN (Reason: nausea and vomiting) Qty: 30 2RF lidocaine-prilocaine 2.5-2.5 % cream 1 applic topical ONCE PRN (Reason: port access) 30 Days Qty: 30 2RF MAGIC MOUTH WASH (BMX) 180 mL suspension 15 ml PO .qid PRN (Reason: pain) Qty: 180 5RF Rx Instructions: diphenhydramine 12.5 mg/5 mL oral liquid 60 mL; aluminum-mag hydroxide-simethicone 400 mg-400 mg-40 mg/5 mL oral susp 60 mL; Lidocaine Viscous 2 % mucosal solution 60 mL; Per 180 mL lovastatin 40 MG tablet 40 mg PO DAILY Patient Comments: duloxetine 60 MG capsule,delayed release(DR/EC) 60 mg PO DAILY Patient Comments: acetaminophen 500 mg capsule 500 mg PO Q6H PRN (Reason: pain) Trelegy Ellipta 100-62.5-25 mcg blister with device 1 inh INHALATION DAILY Qty: 3 3RF albuterol sulfate [Ventolin HFA] 90 mcg/actuation HFA aerosol inhaler 2 puff INHALATION Q6H Qty: 18 11RF Referrals / Follow Up: Moriah Mott PROPULSION MOTOR AND GENERATOR REPAIRER-C [Primary Care Provider] - Disposition Disposition (needs filled in before D/C Order can be placed): Home, Self Care
--- NOTE | 2024-06-01 13:53 | DS.PCM_ITS ---
Providers Date of Admission: 05/30/24 Date of Discharge: 06/01/24 Primary Care Physician: ANNETTE Willis Consultations 05/30/24 18:26 Consult: Infectious Disease Routine Consulting Provider: Rodri Harrington Reason for Consult: neutropenic fever w/ unclear source, SCLC on active chemo EMERGENT Consult: No MD Notified: Yes Date Notified: 05/30/24 Time Notified: 16:24 Method of Notification: Text Consult: Corporate Planner / Pulmonary Medicine Routine Consulting Provider: Fitz Reyes Reason for Consult: sepsis with neutropenic fever w/ unclear source EMERGENT Consult: No MD Notified: Yes Date Notified: 05/31/24 Time Notified: 06:15 Method of Notification: Text Consult: Oncology/Hematology Routine Consulting Provider: [facility]) Reason for Consult: neutropenic fever w/ unclear source, SCLC on active chemo EMERGENT Consult: No MD Notified: Yes Date Notified: 05/30/24 Time Notified: 16:23 Method of Notification: Answering Service Reason For Visit: NEUTROPENIC FEVER AND SEPSIS WITH UNKNOWN SOURCE Diagnosis Discharge Diagnosis (1) Neutropenic fever: Status: Acute Code(s): D70.9 - Neutropenia, unspecified; R50.81 - Fever presenting with conditions classified elsewhere Medications at Discharge Home Medications duloxetine 60 mg capsule,delayed release 60 mg PO DAILY 11/25/13 lovastatin 40 mg tablet 40 mg PO DAILY 11/25/13 cholecalciferol (vitamin D3) 125 mcg (5,000 unit) capsule 5,000 unit PO DAILY 06/25/23 levothyroxine 100 mcg tablet 100 mcg PO DAILY 06/25/23 metformin 1,000 mg tablet 1,000 mg PO BID 06/25/23 ascorbate calcium (vitamin C) 500 mg tablet 500 mg PO DAILY 12/05/23 fluticasone fur. 100 mcg-umeclid 62.5 mcg-vilant 25 mcg inhalat.powder (Trelegy Ellipta) 1 inh inhalation DAILY #3 ea 02/04/24 albuterol sulfate 90 mcg/actuation aerosol inhaler (Ventolin HFA) 2 puff inhalation Q6H #18 grams 03/15/24 acetaminophen 500 mg capsule 500 mg PO Q6H PRN pain 05/12/24 lidocaine-prilocaine 2.5 %-2.5 % topical cream 1 applic topical ONCE PRN port access 30 days #30 grams 05/17/24 ondansetron 8 mg disintegrating tablet 8 mg PO Q8H PRN nausea and vomiting #30 tabs 05/17/24 prochlorperazine maleate 10 mg tablet 10 mg PO Q6H PRN nausea and vomiting #30 tabs 05/17/24 MAGIC MOUTH WASH (BMX) 180 mL suspension 15 ml PO .qid PRN pain #180 mL 05/18/24 nystatin 100,000 unit/mL oral suspension 4 ml PO Q6H 7 days #473 mL 06/01/24 sulfamethoxazole 800 mg-trimethoprim 160 mg tablet (Bactrim DS) 1 tab PO BID 5 days #10 tabs 06/01/24 Hospital Course Operations None Procedures EKG and - (Chest x-ray, CT abdomen pelvis) Summary of Care Provided Minutes Spent on Discharge: 35 Hospital Course: Patient is a 68-year-old female who presented [facility] ED on 05/30/2024 with fevers, nausea with vomiting and weakness. Hospital course as noted below. Patient discharged home in stable condition on 06/01. 1. Sepsis with neutropenic fever secondary to UTI versus unclear source of infection, improving ? Oncology, infectious disease and meat cutting block repairer followed. Patient met SIRS criteria on admit with tachycardia and leukopenia and given she has Medicare part A and B she meets sepsis criteria. Given 3 L of normal saline on admit with good improvement in blood pressure. UA mildly infectious and urine culture greater than 100,000 E. coli; possible source of infection as no other source was identified. Oncology gave dose of filgrastim on 05/31 with improvement in WBC count and ANC. Treated with IV vancomycin and Zosyn while inpatient, per ID okay to de-escalate to double strength Bactrim twice daily for 5 days on discharge. 2. Oral candidiasis ? Noted on exam on admit. Treated with oral nystatin 4 times daily and prescribed this on discharge to complete 7-day course total. 3. Hypokalemia, hypophosphatemia ? Potassium 3.0 on admit. Mag 1.6, Phos 1.6. Repleted with improvement. 4. Small cell lung cancer on active chemoradiation therapy ? Follows with oncology and radiation oncology. See HPI for further details. Oncology gave dose of filgrastim as above, otherwise no inpatient oncology needs. Recommend close outpatient follow-up with both oncology and radiation oncology. 5. Mild anemia and thrombocytopenia ? Hemoglobin 11.0, baseline around 12. Platelets 106, baseline in the 200s. Presume these findings are secondary to recent chemotherapy. Hemoglobin decreased to 9.3 on hospital day 2, presume secondary to IV fluid resuscitation. Hemoglobin stable at around 9 on discharge. Anemia studies showed low iron count with low iron supply presume secondary to recent chemotherapy. 6. Mild acute debility ? PT/OT/case management following. Patient with acute weakness presumed secondary to recent chemotherapy and radiation treatments and decreased p.o. intake recently. Much improved during hospitalization and was stable for discharge home with no therapy needs on 06/01. Chronic medical conditions: ? Class I obesity: BMI 34 on admit. Complicated hospital course, care and prognosis. ? Hypothyroidism: Continue home Synthroid. ? Type 2 diabetes mellitus: A1c 6.2% on admit. Treated with sliding scale insulin with meals while inpatient. Resume home metformin on discharge. ? Depression: Stable. Continue home duloxetine. ? Hyperlipidemia: Continue home statin. ? COPD: Stable on room air, not in acute exacerbation. Continue home inhalers. Total clinical time spent by myself addressing the patient's medical issues, reviewing all the data, and collaborating with patient's care team: 35 minutes. Physical Exam Const alert, oriented x3 and no apparent distress Constitutional Narrative: Elderly female, class I obesity, energy improved from admission, laying back comfortably in bed, conversing normally, in no acute distress. General Appearance: cooperative and comfortable HEENT normocephalic, head/scalp atraumatic, hearing grossly normal bilaterally, nasal mucous membranes and turbinates normal and moist oral mucous membranes HEENT Narrative: Several small white patches noted on the tongue. No erythema noted on tongue or on palate. Stable. Eyes PERRL, EOMs intact bilaterally and conjunctivae normal Neck full ROM Chest inspection of chest normal Resp normal respiratory effort and no use of accessory muscles Resp Narrative: Breathing comfortably on room air at rest. Good breath sounds bilaterally with no wheezing or crackles noted. Cardio regular rate, regular rhythm, no murmurs and peripheral pulses 2+ throughout GI normal to inspection, nondistended, normoactive bowel sounds, soft to palpation, non-tender and non-distended Back/Spine normal ROM Extremity normal to inspection, full ROM and no pedal edema Skin no rashes or lesions noted Neuro moves all extremities and no focal motor deficits Speech: speech normal Motor Exam: strength 5/5 throughout Psych mental status grossly normal Medical Records Data Medical Nutrition Assessment Dietitian: Malnutrition Criteria Met Start: 05/31/24 10:10 Freq: Status: Active Protocol: Document 05/31/24 10:10 SLA (Rec: 05/31/24 10:10 SLA [id number]) Nutrition Malnutrition Evidence of Malnutrition Exists Yes Malnutrition (severe): Acute Illness/Injury Evidenced By Suboptimal Energy Intake ( Severe),Weight Loss (Severe) Clinical Problem Acute Disease or Injury Related Malnutrition Etiology related to lung cancer and radiation tx w/ inadequate energy intake Signs/Symptoms as evidenced by 2.9% unintended wt loss and po intake meeting <75% 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 Will order 8 oz glucerna shake tid w/ meals for increased nutrition if consumed Weight / BMI Weight Weight: 94.3 kg Body Mass Index (BMI) 34.6 ABG / Lab / Microbiology Data 06/01/24 02:55 06/01/24 02:55 Laboratory: Laboratory Results - last 24 hr 05/30/24 13:24: Diff Path Review Reviewed 05/31/24 05:00: Diff Path Review Reviewed, Iron 16 L, TIBC 176 L, Iron Saturation 9.1 L, Ferritin 206, Folate 18.50 05/31/24 13:25: Vitamin B12 300 05/31/24 16:38: POC Glucose 101 05/31/24 21:13: POC Glucose 117 H 06/01/24 02:55: WBC 1.7 L, RBC 2.88 L, Hgb 9.1 L, Hct 27.3 L, MCV 94.8, MCH 31.6, MCHC 33.3, RDW Std Deviation 41.8, RDW Coeff of Jose Manuel 12.1, Plt Count 193, MPV 9.8, Immature Gran % (Auto) 1.700 H, Neut % (Auto) 41.1 L, Lymph % (Auto) 25.4, [place] % (Auto) 28.9 H, Eos % (Auto) 1.7, Baso % (Auto) 1.2 H, Absolute Neuts (auto) 0.7 L, Absolute Lymphs (auto) 0.44 L, Nucleated RBC % 0, Differential Comment SCANNED, Diff Path Review May foll, Atypical Lymphocytes 1+, Sodium 137, Potassium 3.4 L, Chloride 106, Carbon Dioxide 25.0, BUN 5 L, Creatinine 0.57, Estim Creat Clear Calc 75.61, Est GFR (MDRD) Af Amer 136, Est GFR (MDRD) Non-Af 112, BUN/Creatinine Ratio 8.8 L, Glucose 114 H, Calcium 8.1 L, Phosphorus 2.2 L, Albumin 2.5 L 06/01/24 08:25: POC Glucose 97 06/01/24 11:41: POC Glucose 133 H Microbiology: Microbiology 05/30/24 16:12 Urine, Clean Catch Urine Culture - Final Escherichia coli 05/30/24 13:55 Mucosa - Nose SARS-CoV-2, Influenza & RSV (PCR) - Final D/C Instructions Discharge Diet: No restrictions DC O2, CPAP, BIPAP Needs PSN CPAP & BiPAP: BiPAP & CPAP Settings per PSN Mode BiPAP 06/01/24 07:45 Bipap Delivery Device Face Mask 06/01/24 07:45 BiPAP Inspiratory Pressure 18 06/01/24 07:45 BiPAP Expiratory Pressure 14 06/01/24 07:45 Fraction of Inspired Oxygen ( 21 06/01/24 07:45 FIO2) Home O2 Discharge instructions: No Meaningful Use Info Meaningful Use Meaningful Use Diagnoses (Choose all that apply): None applicable Ischemic Stroke Statin Dosing Therapy Reference: STATIN DOSE THERAPY REFERENCE: * Patients > 75 years receive moderate or high dose statin therapy. * Patients 75 years or YOUNGER should receive HIGH intensity statin dose unless contraindicated. You will be required to document reason for non-treatment if statin daily dose does not meet guidelines. HIGH DOSE STATIN THERAPY DAILY Atorvastatin > than or = to 40 mg Rosuvastatin > than or = to 20 mg Amlodipine + Atorvastatin > than or = to 2.5/40 mg Ezetimibe + Simvastatin 10/80 mg Simvastatin 80mg Discharge Plan Admission Admit Date/Time: 05/30/24 16:18 Primary Reason for Your Visit: Fevers, nausea with vomiting and weakness Attending Provider: Aj Barron Primary Care Provider: Moriah Mott Consulting Providers: Rodri Harrington; Jacoby Diaz; Jamie Ortiz; Reilly Garzon; Maxi Merlos; Rodri Parr; Jeff Medina; Hemal Esteban; Nicolas Barclay; Leighann Arellano SHIPPING AND RECEIVING SPECIALIST Instructions Additional Instructions / Restrictions: ? Take Bactrim twice daily for 5 more days to complete course of antibiotics. ? Use the nystatin swish and swallow 4 times daily for 7 more days. ? Follow-up with oncology and radiation oncology in the office soon. Discharge Orders/Prescriptions Prescriptions: New sulfamethoxazole-trimethoprim [Bactrim DS] 800-160 mg tablet 1 tab PO BID 5 Days Qty: 10 0RF nystatin 100,000 unit/mL suspension 4 ml PO Q6H 7 Days Qty: 473 0RF Rx Instructions: swish and swallow Continued cholecalciferol (vitamin D3) 125 mcg (5,000 unit) capsule 5,000 unit PO DAILY levothyroxine 100 mcg tablet 100 mcg PO DAILY Patient Comments: TAKE 1 TABLET BY MOUTH EVERY DAY metformin 1,000 mg tablet 1,000 mg PO BID Patient Comments: Take 1 tablet by mouth twice daily ascorbate calcium (vitamin C) 500 mg tablet 500 mg PO DAILY prochlorperazine maleate 10 mg tablet 10 mg PO Q6H PRN (Reason: nausea and vomiting) Qty: 30 2RF ondansetron 8 mg tablet,disintegrating 8 mg PO Q8H PRN (Reason: nausea and vomiting) Qty: 30 2RF lidocaine-prilocaine 2.5-2.5 % cream 1 applic topical ONCE PRN (Reason: port access) 30 Days Qty: 30 2RF MAGIC MOUTH WASH (BMX) 180 mL suspension 15 ml PO .qid PRN (Reason: pain) Qty: 180 5RF Rx Instructions: diphenhydramine 12.5 mg/5 mL oral liquid 60 mL; aluminum-mag hydroxide- simethicone 400 mg-400 mg-40 mg/5 mL oral susp 60 mL; Lidocaine Viscous 2 % mucosal solution 60 mL; Per 180 mL lovastatin 40 MG tablet 40 mg PO DAILY Patient Comments: duloxetine 60 MG capsule,delayed release(DR/EC) 60 mg PO DAILY Patient Comments: acetaminophen 500 mg capsule 500 mg PO Q6H PRN (Reason: pain) Trelegy Ellipta 100-62.5-25 mcg blister with device 1 inh INHALATION DAILY Qty: 3 3RF albuterol sulfate [Ventolin HFA] 90 mcg/actuation HFA aerosol inhaler 2 puff INHALATION Q6H Qty: 18 11RF Referrals / Follow Up: Moriah Mott, SHIPPING AND RECEIVING SPECIALIST-C [Primary Care Provider] - Disposition Disposition (needs filled in before D/C Order can be placed): Home, Self Care Charges/Coding Visit Charges Inpatient E&M: 66757 Disch Hosp >30min
[2024-06-01 14:00] LABS: Pathologist Review Reviewed
== END 2024-06-01 15:00 | disposition home or self-care (01) | DRG 871 ==
LOC: ED 16:23 → ICU 16:50
PROVIDERS: Admitting Provider Hospitalist; Emergency Provider Emergency Medicine; PCP Nurse Practitioner Family; Visit Provider Hospitalist
DX: A41.9 Sepsis, unspecified organism (principal); E43 Unspecified severe protein-calorie malnutrition; B37.0 Candidal stomatitis; C34.12 Malignant neoplasm of upper lobe, left bronchus or lung; N39.0 Urinary tract infection, site not specified; D70.9 Neutropenia, unspecified; E83.39 Other disorders of phosphorus metabolism; D69.6 Thrombocytopenia, unspecified; D64.81 Anemia due to antineoplastic chemotherapy; J44.9 Chronic obstructive pulmonary disease, unspecified; E11.9 Type 2 diabetes mellitus without complications; E03.9 Hypothyroidism, unspecified; F32.A Depression, unspecified; Z68.34 Body mass index [BMI] 34.0-34.9, adult; E78.00 Pure hypercholesterolemia, unspecified; E87.6 Hypokalemia; G47.33 Obstructive sleep apnea (adult) (pediatric); T45.1X5A Adverse effect of antineoplastic and immunosuppressive drugs, initial encounter; E66.811 Obesity, class 1; Z79.84 Long term (current) use of oral hypoglycemic drugs; Z87.891 Personal history of nicotine dependence; Z79.51 Long term (current) use of inhaled steroids; Z79.899 Other long term (current) drug therapy
CPT/HCPCS: 71045; 74177; 77336; 77386; 80048; 80053; 80069; 81001; 82607; 82728; 82746; 82962; 83036; 83540; 83550; 83605; 83735; 84100; 85025; 85610; 85730; 87040; 87077; 87086; 87088; 87186; 87631; 93005; 94002; 94003; 94640; 94668; 97110; 97116; 97162; 97166; 97802; 99285; Q9967; A4216; J1447

== ENCOUNTER 2024-07-02 16:17 | Inpatient (IN) | payer MEDICARE, OTHER, SELFPAY ==
[2024-07-02] VITALS (8 sets, daily range): BP systolic 102–145; BP diastolic 70–88; PULSE 80–93; RESP 15–23; TEMP 36.7–37.6; O2SAT 91–99; BMI 31.9; BMI 33.0
[2024-07-02 16:47] LABS: Bedside Glucose 79 mg/dL (74-106)
--- NOTE | 2024-07-02 16:47 | EKG12_ITS ---
Test Reason : CONFUSION Blood Pressure : */* mmHG Vent. Rate : 83 BPM Atrial Rate : 83 BPM P-R Int : 188 ms QRS Dur : 90 ms QT Int : 382 ms P-R-T Axes : 54 6 50 degrees QTcB Int : 448 ms Normal sinus rhythm Nonspecific ST abnormality Abnormal ECG Confirmed by JASPAL MARSH, LORIN ([id number]), art editor HAYDEN SPIVEY ([id number]) on 07/05/2024 7:03:30 AM Referred By: Confirmed By: LORIN SHAY MD
--- NOTE | 2024-07-02 16:48 | EX.ED.DYSGE1 ---
HPI History of Present Illness Chief Complaint: Confusion Narrative Narrative: History and physical mildly limited secondary to patient's mental status change. According to her , she had recent diagnosis of lung carcinoma with questionable metastasis. She received chemotherapy in May, in June, and her third dose is coming up in July. He states that she had been doing okay at home, when he went to the store and returned, she was confused and generally weak in both arms and both legs. She could barely stand. She is now currently confused to the point where she cannot tell me her name and repeats I do not know. She has not had any recent nausea or vomiting, no fevers or chills or cough according to her . [facility] Medical History Hypokalemia Diarrhea Encounter for chemotherapy management Encounter for education Wears glasses Wears dentures Post-menopausal Cancer Thyroid disease Diabetes Arthritis Anemia High cholesterol Heartburn Gastric reflux Former smoker CPAP (continuous positive airway pressure) dependence Sleep apnea Leg cramps History of edema History of echocardiogram History of stress test Regional lymph node metastasis present Primary fibromyalgia syndrome Chondromalacia Chronic obstructive lung disease Depression Hyperlipidemia Vitamin D deficiency Hypothyroidism Localized swelling, mass and lump, unspecified MARTELL (obstructive sleep apnea) Dyspnea Right ankle pain Home Medications ?Medication ?Instructions ?Recorded ?Last Taken ?Type duloxetine 60 mg capsule,delayed 60 mg PO DAILY 11/25/13 05/12/24 History release lovastatin 40 mg tablet 40 mg PO DAILY 11/25/13 05/12/24 History cholecalciferol (vitamin D3) 125 5,000 unit PO DAILY 06/25/23 05/12/24 History mcg (5,000 unit) capsule levothyroxine 100 mcg tablet 100 mcg PO DAILY 06/25/23 05/12/24 History metformin 1,000 mg tablet 1,000 mg PO BID 06/25/23 05/12/24 History ascorbate calcium (vitamin C) 500 500 mg PO DAILY 12/05/23 05/12/24 History mg tablet fluticasone fur. 100 mcg-umeclid 1 inh inhalation DAILY #3 ea 02/04/24 05/12/24 Rx 62.5 mcg-vilant 25 mcg inhalat.powder (Trelegy Ellipta) albuterol sulfate 90 mcg/actuation 2 puff inhalation Q6H #18 grams 03/15/24 Unknown Rx aerosol inhaler (Ventolin HFA) acetaminophen 500 mg capsule 500 mg PO Q6H PRN pain 05/12/24 Unknown History lidocaine-prilocaine 2.5 %-2.5 % 1 applic topical ONCE PRN port 05/17/24 Unknown Rx topical cream access 30 days #30 grams ondansetron 8 mg disintegrating 8 mg PO Q8H PRN nausea and 05/17/24 Unknown Rx tablet vomiting #30 tabs prochlorperazine maleate 10 mg 10 mg PO Q6H PRN nausea and 05/17/24 Unknown Rx tablet vomiting #30 tabs MAGIC MOUTH WASH (BMX) 180 mL 15 ml PO .qid PRN pain #180 mL 05/18/24 Unknown Rx suspension nystatin 100,000 unit/mL oral 4 ml PO Q6H 7 days #473 mL 06/01/24 Unknown Rx suspension sulfamethoxazole 800 1 tab PO BID 5 days #10 tabs 06/01/24 Unknown Rx mg-trimethoprim 160 mg tablet (Bactrim DS) potassium chloride 20 mEq 20 meq PO DAILY #3 tabs 06/28/24 Unknown Rx tablet,extended release(part/cryst) Allergy/AdvReac Type Severity Reaction Status Date / Time vaccine adjuvant system, Allergy Rash Verified 07/02/24 16:24 AS01B liposomal (From Shingrix (PF)) varicella-zoster virus Allergy Rash Verified 07/02/24 16:24 glycoprotein E, recombinant (From Shingrix (PF)) Family History Mother Heart disease CVA (cerebral vascular accident) Brain tumor Father Cancer Stomach Heart disease Surgical History History of colonoscopy History of ankle surgery History of cataract extraction Social History Smoking Status: Former smoker quit date: 06/02/16 pack-years: 63 Tobacco: How many years used: 42 Electronic Cigarette Use: not used how long ago did patient quit smokin years second hand exposure: Yes quit status: quit date established alcohol intake: never substance use type: does not use ROS ROS ED ROS Narrative Obtained from . Positive confusion. Generalized weakness of bilateral arms and legs. No recent nausea or vomiting, no diarrhea, no fevers or chills. Review of Systems ROS Unobtainable: due to mental status EXAM Physical Exam Narrative Exam Narrative: Afebrile. Vital signs noted. Nontoxic-appearing. Appears confused. Cardiovascular examination reveals a regular rate and rhythm. Lungs are clear to auscultation bilaterally. Abdomen is soft and nontender with positive bowel sounds. No guarding or rebound. She is awake, and alert, but is unable to tell me her name. Const Vital Signs: 07/02/24 16:18 07/02/24 17:18 07/02/24 18:00 Temperature 98.1 F Temperature Source Oral Pulse Rate 93 86 80 Respiratory Rate 19 H 16 16 Blood Pressure 140/87 H 136/72 H 145/76 H Blood Pressure Mean 104 93 99 Pulse Ox 98 97 96 Oxygen Delivery Method Room Air 07/02/24 19:00 07/02/24 19:31 Temperature 98.1 F Temperature Source Pulse Rate 85 85 Respiratory Rate 15 20 H Blood Pressure 102/72 143/80 H Blood Pressure Mean 82 101 Pulse Ox 98 99 Oxygen Delivery Method Room Air MDM MDM MDM Narrative Medical decision making narrative: Differential diagnosis includes but not limited to brain metastases versus metabolic disturbance including dehydration or other electrolyte disturbance. Also in the differential diagnosis would be hepatic encephalopathy versus intracranial hemorrhage versus infectious cause such as pneumonia or urinary tract infection, but history and physical does not support the latter 2 diagnoses. Comprehensive workup was pursued. [id number] glucose obtained and reviewed and is normal at 79. I reviewed her laboratory work and she has normal white count of 6.2, she is not neutropenic, hemoglobin stable at 8.4 with platelet count normal at 156. Electrolyte panel is significant for potassium of 2.8, she has had hypokalemia in the past. Attempt was made to replace this orally, but she is unable to swallow large pills even when cut in half. Glucose normal at 125, BUN of 13 and creatinine normal at 0.62, no dehydration. Chloride slightly elevated at 108 which I think is nonspecific. Ammonia level is normal at 14 so I doubt hepatic encephalopathy. High-sensitivity troponin is 4 and normal. I do not feel she needs serial enzymes. Urinalysis shows cloudy urine with positive nitrites but 0-5 WBCs. There is 4+ bacteria and 150 ketones. She may be intravascularly volume depleted. EKG obtained and interpreted by myself independently as normal sinus rhythm at 81 bpm without ectopy or acute ST changes. No STEMI. CT of the brain was obtained and I reviewed the radiology report which shows no evidence of an acute intracranial hemorrhage, no acute process. Additionally, on my independent interpretation of her chest x-ray, there is no pneumonia or pneumothorax. I reviewed the radiology report which confirms my independent interpretation. Repeat examination after generalized workup at approximately 7:20 PM shows her more alert and oriented. She is able to state her name and her birthdate. However, with the possibility that this is a UTI, and her inability to swallow pills, she was started on Rocephin. She was also administered Zofran intravenously. I will discuss patient with the hospitalist for admission. Patient is in stable condition. History & Record Review Discussion w/independent historian: Patient and Family () Lab Data Attestation: I reviewed the patient's lab results. Labs: Laboratory Results - last 24 hr 07/02/24 07/02/24 07/02/24 16:28 17:05 18:24 WBC 6.2 RBC 2.69 L Hgb 8.4 L Hct 25.6 L MCV 95.2 MCH 31.2 MCHC 32.8 RDW Std Deviation 45.7 H RDW Coeff of Jose Manuel 14.3 Plt Count 156 MPV 10.9 Immature Gran % (Auto) 1.900 H Neut % (Auto) 80.0 H Lymph % (Auto) 7.4 L Ogle % (Auto) 10.3 H Eos % (Auto) 0.2 Baso % (Auto) 0.2 Absolute Neuts (auto) 5.0 Absolute Lymphs (auto) 0.46 L Nucleated RBC % 0.3 Sodium 141 Potassium 2.8 L Chloride 108 H Carbon Dioxide 21.0 Anion Gap 12 BUN 13 Creatinine 0.62 Estim Creat Clear Calc 72.34 Est GFR (MDRD) Af Amer 121 Est GFR (MDRD) Non-Af 100 BUN/Creatinine Ratio 20.8 H Glucose 125 H Calcium 9.1 Total Bilirubin 0.40 AST 17 ALT 23 Alkaline Phosphatase 72 Ammonia 14.0 Troponin I High Sens 4 Total Protein 6.6 Albumin 3.3 Globulin 3.3 Albumin/Globulin Ratio 1.0 Urine Color Yellow Urine Clarity Sl. Cloudy Urine pH 6.0 Ur Specific [place] 1.015 Urine Protein 30 H Urine Glucose (UA) Normal Urine Ketones 150 A* Urine Occult Blood 10 H Urine Nitrite Positive H Urine Bilirubin Negative Urine Urobilinogen Normal Ur Leukocyte Esterase 25 H Urine RBC 0 SEEN Urine WBC 0-5 SEEN Ur Squamous Epith Cells 0 SEEN Urine Bacteria 4+ Urine Mucus 0 SEEN POC Glucose 79 Radiography Diagnostic Testing: Clinical Impression(s) from Imaging Studies Chest X-Ray 07/02/24 17:24 IMPRESSION: No radiographic evidence of acute cardiopulmonary disease Reading Location: [facility] Brain CT 07/02/24 17:27 IMPRESSION: No CT evidence of acute intracranial pathology. [facility] Discussion w/another healthcare provider: Hospitalist (Dr. Manning) Discharge Plan Dx/Rx/DC Orders Clinical Impression: Confusion, Small cell lung cancer, left upper lobe, Hypokalemia Disposition Disposition: Acute Care [facility]
--- NOTE | 2024-07-02 17:24 | RAD_ITS ---
PROCEDURE: CHEST 1 VIEW (PORTABLE) REASON FOR EXAM: Generalized weakness TECHNIQUE: Frontal view of the chest. COMPARISON: 05/30/2024 FINDINGS: Right IJ port with tip at the SVC/right atrial junction. The heart size is normal. The mediastinal contour is unremarkable. The lungs are clear. The bones are unremarkable. RAD/Chest 1 View (Portable) IMPRESSION: No radiographic evidence of acute cardiopulmonary disease Reading Location: [facility]
[2024-07-02 17:26] LABS: Absolute Lymphocyte Count 0.46 X10^3/uL (0.83-4.51); Basophil# 0.01 X10^3/uL; Basophil% 0.2 % (0-1); Eosinophil# 0.01 X10^3/uL; Eosinophils% 0.2 % (0-5); Hematocrit 25.6 % (37-47); Hemoglobin 8.4 g/dL (12.0-15.0); Lymphocyte # 0.46 X10^3/ul (0.83-4.51); Lymphocyte % 7.4 % (19-41); Mean Corp Hgb Conc 32.8 g/dL (32-36); Mean Corpuscular Hgb 31.2 pg (27.0-32.0); Mean Corpuscular Volume 95.2 fL (81-99); Mean Platelet Vol. 10.9 fl (6.2-12.0); Monocyte# 0.64 X10^3/uL; Monocyte% 10.3 % (0-10); NRBC Flagged by Analyzer 0.3 % (0-5); Neutrophil # 4.95 X10^3/uL (2.7-7.7); POSITIVE DIFFERENTIAL YES; Platelet Count 156 K/mm3 (150-450); RBC Distribution Width CV 14.3 % (11.6-14.6); RBC Distribution Width SD 45.7 fl (35.1-43.9); Red Blood Count 2.69 M/mm3 (4.2-5.4); White Blood Count 6.2 K/mm3 (4.4-11.0)
--- NOTE | 2024-07-02 17:27 | CT_ITS ---
EXAM: BRAIN/HEAD WITHOUT CONTRAST CLINICAL HISTORY: old with . COMPARISON: None. TECHNIQUE: Noncontrast images of the head with multiplanar reconstructions. Dose reduction techniques were used including intermediate exposure control (AEC),iterative reconstruction technique, and/or mA and/or KV dose adjustments based on patient's size. FINDINGS: CT HEAD FINDINGS: No acute intracranial hemorrhage, mass, mass effect, midline shift or pathologic extra-axial fluid collection. No hydrocephalus. Age- appropriate cerebral volume and white matter. Visualized paranasal sinuses and mastoid air cells are clear. The calvarium is grossly intact. CT/Brain/Head without Contrast IMPRESSION: No CT evidence of acute intracranial pathology. Reading Location: [facility]
[2024-07-02 17:52] LABS: AST(SGOT) 17 U/L (15-37); Alanine Aminotransfer ALT/SGPT 23 U/L (13-56); Albumin, Serum 3.3 g/dL (3.2-5.0); Alkaline Phosphatase 72 U/L (45-117); Anion Gap 12 (5-15); BUN 13 mg/dL (7-18); BUN/Creat Ratio 20.8 RATIO (10-20); Calcium,Total 9.1 mg/dL (8.5-10.1); Chloride 108 mmol/L (98-107); Creatinine, Serum 0.62 mg/dL (0.55-1.02); EST Glomerular Filtration Rate 100 mL/min (>60); Est Glom Filt Rate - Afr Amer 121 mL/min (>60); Estimated Creatinine Clearance 72.34 ml/min; Globulin 3.3 g/dL (2.2-4.2); Glucose 125 mg/dL (74-106); Potassium 2.8 mmol/L (3.5-5.1); Protein, Total 6.6 g/dL (6.4-8.2); Sodium Level 141 mmol/L (136-145); Troponin-I HS 4 pg/mL (3.0-54.0)
[2024-07-02 18:31] LABS: Mucous, Urine 0 SEEN /hpf (<or=2+); Red Blood Cells-Urine 0 SEEN /hpf (0-5); Squamous Epithelial Cells - UA 0 SEEN /hpf (5-10)
[2024-07-02 18:37] LABS: Color, Urine Yellow (Yellow); Glucose, Dipstick Normal (Normal); Leukocyte Esterase-Dipstick 25 /ul (Negative); Nitrite-Dipstick Positive (Negative); Occult Blood-Urine 10 /ul (Negative); Protein-Dipstick 30 mg/dl (Negative); Specific Gravity, Urine 1.015 (1.002-1.030); Urine Bilirubin Dipstick Negative (Negative); Urine Clarity Sl. Cloudy (Clear); Urine Urobilinogen Normal (Normal)
[2024-07-02 18:58] LABS: Ketone-Dipstick 150 mg/dl (Negative)
--- NOTE | 2024-07-02 18:59 | ED.RN ---
pt unable to swallow K pills. dr clemens aware.
[2024-07-02 19:09] LABS: Bacteria 4+ /hpf (None Seen); White Blood Cells 0-5 SEEN /hpf (0-5)
--- NOTE | 2024-07-02 19:33 | PCM.HP.STD ---
[facility] - General General Date of Admission: 07/02/24 Date of Service: 07/02/24 Chief Complaint: Altered Mental Status and Dysphagia with Nausea and Vomiting. HPI Narrative ANDREA CALIX, is a 68 F with a past medical history of hyperlipidemia; on lovastatin, hypothyroidism; on levothyroxine, obesity; with BMI of 32 this admission, MARTELL; on CPAP, DM-2; of unknown control on metformin, former history of tobacco abuse (quit ~2016); with subsequent COPD, history of small cell lung cancer; primarily in Left upper lobe with regional lymph node metastasis patient having just received her second dose of chemotherapy via Port, history of recently diagnosed UTI; having just finished 5-day course of oral Bactrim DS, history of oral thrush; on nystatin and Magic mouthwash as needed, history of anemia, history of vitamin D deficiency, history of chondromalacia, primary fibromyalgia syndrome, chronic depression; on duloxetine, history of GERD; currently untreated and OA; primarily affecting both knees and the Right ankle; with history of fracture requiring surgical repair who presents to [facility] ER complaining of altered mental status and dysphagia with nausea and vomiting. Mrs. Calix is not a fully-reliable historian at this time as information was gathered from chart, medical staff and computer. According to the records her informed the ER physician that she was recently diagnosed with lung cancer with suspected metastatic spread to regional lymph nodes. She started chemotherapy in May with her third dose due in early July 2024. He states that she had been doing okay at home until earlier today when he went to the store and returned and found her confused and generally weak in both arms and legs. He tried to assist her but noted she could barely stand which was new. The patient's confusion persisted in the ER she was unable to even tell the ER physician her name, with the patient repeating I do not know. Her denied recent history of nausea and vomiting the patient was noted to have nausea in the ER for which she was treated with IV Zofran. He additionally denied associated fever, chills, abdominal pain, chest pain, shortness of breath, dysuria or headache with unremarkable head CT noted on admission and serum glucose of 125 mg/dL. In the ER she was noted to have laboratory evidence of Hypokalemia of 2.8 mmol/L with Hypomagnesemia of 1.3 mg/dL both present on admission complicated by urinalysis suspicious for persistent Acute Cystitis; without hematuria with 4+ bacteria, elevated leukocyte esterase, positive nitrites and elevated urine ketones in spite of recently finishing a full 5-day course of oral Bactrim DS so she was started on empiric IV ceftriaxone in the ER compounded by clinical evidence of Acute Metabolic Encephalopathy with patient additionally complaining of Dysphagia with Nausea and Vomiting in the setting of known recently diagnosed lung cancer; on chemotherapy causing a suspected Adverse Drug Reaction as a significant factor in her recent clinical decline. UDS and JADEN are pending at this time. She was then admitted to the the general medical floor with telemetric monitoring for ongoing care for a stay that is expected to extend beyond 2 midnights. [facility] Medical History Hypokalemia Diarrhea Encounter for chemotherapy management Encounter for education Wears glasses Wears dentures Post-menopausal Cancer Thyroid disease Diabetes Arthritis Anemia High cholesterol Heartburn Gastric reflux Former smoker CPAP (continuous positive airway pressure) dependence Sleep apnea Leg cramps History of edema History of echocardiogram History of stress test Regional lymph node metastasis present Primary fibromyalgia syndrome Chondromalacia Chronic obstructive lung disease Depression Hyperlipidemia Vitamin D deficiency Hypothyroidism Localized swelling, mass and lump, unspecified MARTELL (obstructive sleep apnea) Dyspnea Right ankle pain Home Medications ?Medication ?Instructions ?Recorded ?Last Taken ?Type duloxetine 60 mg capsule,delayed 60 mg PO DAILY depression 11/25/13 05/12/24 History release lovastatin 40 mg tablet 40 mg PO DAILY hld 11/25/13 05/12/24 History cholecalciferol (vitamin D3) 125 5,000 unit PO DAILY supplement 06/25/23 05/12/24 History mcg (5,000 unit) capsule levothyroxine 100 mcg tablet 100 mcg PO DAILY thyroid 06/25/23 05/12/24 History metformin 1,000 mg tablet 1,000 mg PO BID dm 06/25/23 05/12/24 History ascorbate calcium (vitamin C) 500 500 mg PO DAILY supplement 12/05/23 05/12/24 History mg tablet fluticasone fur. 100 mcg-umeclid 1 inh inhalation DAILY asthma #3 ea 02/04/24 05/12/24 Rx 62.5 mcg-vilant 25 mcg inhalat.powder (Trelegy Ellipta) albuterol sulfate 90 mcg/actuation 2 puff inhalation Q6H asthma #18 03/15/24 Unknown Rx aerosol inhaler (Ventolin HFA) grams acetaminophen 500 mg capsule 500 mg PO Q6H PRN pain 05/12/24 Unknown History lidocaine-prilocaine 2.5 %-2.5 % 1 applic topical ONCE PRN port 05/17/24 Unknown Rx topical cream access 30 days #30 grams ondansetron 8 mg disintegrating 8 mg PO Q8H PRN nausea and 05/17/24 Unknown Rx tablet vomiting #30 tabs prochlorperazine maleate 10 mg 10 mg PO Q6H PRN nausea and 05/17/24 Unknown Rx tablet vomiting #30 tabs MAGIC MOUTH WASH (BMX) 180 mL 15 ml PO .qid PRN pain #180 mL 05/18/24 Unknown Rx suspension nystatin 100,000 unit/mL oral 4 ml PO Q6H 7 days #473 mL 06/01/24 Unknown Rx suspension Allergy/AdvReac Type Severity Reaction Status Date / Time vaccine adjuvant system, Allergy Rash Verified 07/02/24 16:24 AS01B liposomal (From Shingrix (PF)) varicella-zoster virus Allergy Rash Verified 07/02/24 16:24 glycoprotein E, recombinant (From Shingrix (PF)) Family History Mother Heart disease CVA (cerebral vascular accident) Brain tumor Father Cancer Stomach Heart disease Surgical History History of colonoscopy History of ankle surgery History of cataract extraction Social History Smoking Status: Former smoker quit date: 06/02/16 pack-years: 63 Tobacco: How many years used: 42 Electronic Cigarette Use: not used how long ago did patient quit smokin years second hand exposure: Yes quit status: quit date established alcohol intake: never substance use type: does not use ROS ROS Narrative Full Review of Systems was not possible due to patient's confusion. Vital Signs Vital Signs Vital Signs: 07/02/24 16:18 07/02/24 17:18 07/02/24 18:00 Temperature 98.1 F Temperature Source Oral Pulse Rate 93 86 80 Respiratory Rate 19 H 16 16 Blood Pressure 140/87 H 136/72 H 145/76 H Blood Pressure Mean 104 93 99 Pulse Ox 98 97 96 Oxygen Delivery Method Room Air 07/02/24 19:00 07/02/24 19:31 Temperature 98.1 F Temperature Source Pulse Rate 85 85 Respiratory Rate 15 20 H Blood Pressure 102/72 143/80 H Blood Pressure Mean 82 101 Pulse Ox 98 99 Oxygen Delivery Method Room Air Weight Weight: 192 lb 0.362 oz Body Mass Index (BMI) 31.9 Physical Exam Const alert and no apparent distress Constitutional Narrative: Patient confused, obese, bald and chronically ill in appearance. General Appearance: cooperative Orientation / Consciousness: confused HEENT normocephalic, head/scalp atraumatic and hearing grossly normal bilaterally HEENT Narrative: Mucous membranes dry. Eyes PERRL, EOMs intact bilaterally and conjunctivae normal Neck no lymphadenopathy and supple Resp normal respiratory effort, no retractions, no use of accessory muscles and clear to auscultation bilaterally Cardio regular rate and regular rhythm GI normal to inspection, nondistended, normoactive bowel sounds, soft to palpation, non-tender and non-distended Extremity normal to inspection, full ROM and no clubbing, cyanosis or edema Skin Skin Narrative: Patient has no evidence of rash, abscess, wounds or jaundice. Neuro CN's II-XII intact bilaterally, moves all extremities and no focal motor deficits Sensorium / Orientation: awake, alert, oriented to person and oriented to place Speech: speech normal Psych affect normal Results Medical Records Data Attestation: I reviewed the patient's medical records Lab / Micro Data Attestation: I reviewed the patient's lab results. 07/02/24 17:05 07/02/24 17:05 Labs: Laboratory Results - last 24 hr 07/02/24 16:28: POC Glucose 79 07/02/24 17:05: WBC 6.2, RBC 2.69 L, Hgb 8.4 L, Hct 25.6 L, MCV 95.2, MCH 31.2, MCHC 32.8, RDW Std Deviation 45.7 H, RDW Coeff of Jose Manuel 14.3, Plt Count 156, MPV 10.9, Immature Gran % (Auto) 1.900 H, Neut % (Auto) 80.0 H, Lymph % (Auto) 7.4 L, [place] % (Auto) 10.3 H, Eos % (Auto) 0.2, Baso % (Auto) 0.2, Absolute Neuts (auto) 5.0, Absolute Lymphs (auto) 0.46 L, Nucleated RBC % 0.3, Sodium 141, Potassium 2.8 L, Chloride 108 H, Carbon Dioxide 21.0, Anion Gap 12, BUN 13, Creatinine 0.62, Estim Creat Clear Calc 72.34, Est GFR (MDRD) Af Amer 121, Est GFR (MDRD) Non-Af 100, BUN/Creatinine Ratio 20.8 H, Glucose 125 H, Calcium 9.1, Total Bilirubin 0.40, AST 17, ALT 23, Alkaline Phosphatase 72, Ammonia 14.0, Troponin I High Sens 4, Total Protein 6.6, Albumin 3.3, Globulin 3.3, Albumin/Globulin Ratio 1.0 07/02/24 18:24: Urine Color Yellow, Urine Clarity Sl. Cloudy, Urine pH 6.0, Ur Specific [place] 1.015, Urine Protein 30 H, Urine Glucose (UA) Normal, Urine Ketones 150 A*, Urine Occult Blood 10 H, Urine Nitrite Positive H, Urine Bilirubin Negative, Urine Urobilinogen Normal, Ur Leukocyte Esterase 25 H, Urine RBC 0 SEEN, Urine WBC 0-5 SEEN, Ur Squamous Epith Cells 0 SEEN, Urine Bacteria 4+, Urine Mucus 0 SEEN Imaging Radiology Impression Chest X-Ray 07/02/24 17:24 IMPRESSION: No radiographic evidence of acute cardiopulmonary disease Reading Location: [facility] Brain CT 07/02/24 17:27 IMPRESSION: No CT evidence of acute intracranial pathology. Reading Location: [facility] Assessment & Plan Assessment/Plan (1) Hypokalemia: (2) Hypomagnesemia: (3) Acute cystitis without hematuria: (4) Failed prior treatment for drug use: (5) Small cell lung cancer, left upper lobe: (6) Adverse drug reaction: QUALIFIERS: Encounter type: initial encounter Qualified Code(s): T50.905A - Adverse effect of unspecified drugs, medicaments and biological substances, initial encounter (7) Acute metabolic encephalopathy: (8) Dysphagia: QUALIFIERS: Dysphagia type: unspecified Qualified Code(s): R13.10 - Dysphagia, unspecified (9) Nausea: (10) Obesity (BMI 30.0-34.9): PLAN: Plan 1. Hypokalemia of 2.8 mmol/L and Hypomagnesemia of 1.3 mg/dL both present on admission - Admit to general medical floor with telemetric monitoring. Give supplemental IV KCl plus oral liquid KCl in addition to 2g IV magnesium sulfate IV x 1 and then recheck levels in the AM to confirm improvement. 2. Suspected persistent Acute Cystitis; without hematuria with 4+ bacteria, elevated leukocyte esterase, positive nitrites and elevated urine ketones in spite of recently finishing a full 5-day course of oral Bactrim DS complicating #1 - Continue IV ceftriaxone begun in the ER and await culture and sensitivity data. Give acetaminophen prn pain or fever. 3. Former history of tobacco abuse (quit ~2016); with subsequent COPD and history of Small Cell Lung Cancer; primarily in Left upper lobe with regional lymph node metastasis patient having just received her second dose of chemotherapy via Port causing a suspected Adverse Drug Reaction as a significant factor in her recent clinical decline compounding #1 & #2 - Noted. Patient's next dose of chemotherapy will likely need to be delayed until she markedly improves. 4. Acute Metabolic Encephalopathy with patient additionally complaining of Dysphagia with Nausea attributable to #1 - #3 - UDS and JADEN pending at this time. We will also check B12, Folate and TSH to evaluate for other potential reversible caused of [id number] confusion. Check MRI of the brain to evaluate for CVA or metastases. We will minimize MINE [employer]ATOR-active medications in an effort to allow sensorium to clear. Finally, we will consult speech therapy to see patient on rounds in the a.m. for formal swallowing evaluation due to dysphagia with help appreciated in advance. 5. Obesity; with BMI of 32 this admission plus MARTELL; on CPAP adding to the medical complexity of #1 - #4 - Weight loss will be recommended. Check TSH. This complicates her case and may hamper recovery. 6. Hyperlipidemia; on lovastatin - Resume statin and check Lipid Profile. 7. Hypothyroidism; on levothyroxine - Maintain on levothyroxine and check TSH. 8. DM-2; of unknown control on metformin - NPO except for sips, ice chips and medications until formal swallow evaluation by speech therapy is completed. FSBS q. 6h plus lowest-intensity SSI. Check HgbA1c to objectively assess quality of diabetic control. 9. Recent history of oral thrush; on nystatin and Magic mouthwash as needed - Continue current management. 10. History of anemia - Stable with hemoglobin of 8.4 g/dL present on admission with MCV of 95.2 fL this admission. Check iron studies and Hemoccult stools. 11. History of vitamin D deficiency - Resume vitamin D supplementation and check vitamin D level. 12. History of chondromalacia - Noted. 13. Primary fibromyalgia syndrome - Stable. 14. Chronic depression; on duloxetine - Continue current treatment. 15. History of GERD; currently untreated - Start PPI if symptoms develop. 16. OA; primarily affecting both knees and the Right ankle; with history of fracture requiring surgical repair - Give acetaminophen prn. 17. DVT prophylaxis - Heparin 5,000U sq BID plus SCD's. Total time: Approximately (but not less than) 75 minutes. Charges/Coding Visit Charges Inpatient E&M: 81878 Init Hosp L3
[2024-07-02] MEDS: Ondansetron 4 MG/2 ML Vial IV (19:50)
[2024-07-02] MEDS: Ceftriaxone 1 GM/50 ML BAG IV (20:31)
--- NOTE | 2024-07-02 20:54 | MRI_ITS ---
EXAM: BRAIN WITHOUT CONTRAST CLINICAL HISTORY: Confusion COMPARISON: None. TECHNIQUE: Multiplanar multisequence MRI of the brain was performed without contrast according to standard departmental protocol. FINDINGS: No evidence of restricted diffusion or acute infarct. No extra-axial fluid collection. No mass effect or midline shift. Brain parenchymal signal intensity is normal. The ventricles and sulci are unremarkable for patient's age. The sella is normal. The major intracranial flow voids are preserved. The calvarium is unremarkable. Orbits are unremarkable. The paranasal sinuses are unremarkable. Mastoid air cells are unremarkable. MRI/Brain without Contrast IMPRESSION: No acute MR process. Reading Location: [facility]
[2024-07-02 20:58] LABS: Alcohol, Blood (Medical)-Serum < 3.0 mg/dL
[2024-07-02 21:08] LABS: Magnesium 1.3 mg/dL (1.6-2.6); Thyroid Stim Hormone (TSH) 0.999 uIU/mL (0.358-3.740)
[2024-07-02] MEDS: Potassium Chloride Oral Soln 20 MEQ/15 ML UDC 40 MEQ PO (22:05)
[2024-07-02] MEDS: Heparin Injection (Vial) 5,000 UNIT/ML VIAL 5000 UNIT SC (22:05)
[2024-07-02] MEDS: Lactobacillis Acidophilus 1 CAP PO (22:06)
[2024-07-02 22:15] LABS: Amphetamine Urine NEGATIVE (<1000 ng/mL); Barbiturate Urine VISTA NEGATIVE (< 200 ng/mL); Benzodiazepine Urine VISTA NEGATIVE (< 200 ng/mL); Cocaine Urine VISTA NEGATIVE (< 300 ng/mL); Ecstacy Urine VISTA NEGATIVE (< 500 ng/mL); Methadone Urine VISTA NEGATIVE (< 300 ng/mL); PCP Urine VISTA NEGATIVE (< 25 ng/mL); THC Urine VISTA NEGATIVE (< 50 ng/mL); Vista UDS pH Range 6
[2024-07-02] MEDS: KCL 20MEQ in 0.9% NS 20 MEQ/1,000 ML IV.SOLN. 100 MEQ IV (22:22)
[2024-07-02 22:27] LABS: Cholesterol 109 mg/dL (200); High Density Lipoprotein 39 mg/dL; Triglycerides 97 mg/dL; Very Low Density Lipoprotein 19 mg/dL (5-40)
[2024-07-03] VITALS (7 sets, daily range): BP systolic 104–121; BP diastolic 58–78; PULSE 71–92; RESP 15–22; TEMP 36.3–37.4; O2SAT 95–99; BMI 33.0
[2024-07-03] MEDS: NYSTATIN 500,000 UNIT/5 ML UDC 500000 UNIT PO ×5 (00:13→23:29)
[2024-07-03] MEDS: Acetaminophen 500 MG Tablet PO (00:33)
[2024-07-03] MEDS: Ondansetron 4 MG/2 ML Vial IV (00:33)
[2024-07-03 00:43] LABS: Bedside Glucose 110 mg/dL (74-106)
[2024-07-03] MEDS: Magnesium Sulfate 2 GM in Dextrose 5%-Water (100mL Bag) 100 ML IV (04:38)
[2024-07-03] MEDS: 0.9% Saline Lock 10 ML Syringe IV ×2 (04:39→16:30)
[2024-07-03] MEDS: Levothyroxine 100 MCG Tablet PO (06:20)
[2024-07-03 06:41] LABS: Bedside Glucose 107 mg/dL (74-106)
[2024-07-03 07:08] LABS: Absolute Neutrophil Count 3.6 X10^3/uL (2.0-7.7); Basophil# 0.02 X10^3/uL; Basophil% 0.4 % (0-1); Eosinophil# 0.02 X10^3/uL; Eosinophils% 0.4 % (0-5); Hematocrit 25.2 % (37-47); Hemoglobin 8.4 g/dL (12.0-15.0); Lymphocyte % 16.9 % (19-41); Mean Corp Hgb Conc 33.3 g/dL (32-36); Mean Corpuscular Hgb 31.9 pg (27.0-32.0); Mean Corpuscular Volume 95.8 fL (81-99); Monocyte# 0.69 X10^3/uL; Monocyte% 12.9 % (0-10); NRBC Flagged by Analyzer 0.4 % (0-5); Neutrophil # 3.62 X10^3/uL (2.7-7.7); Neutrophil % 67.7 % (47-70); Platelet Count 170 K/mm3 (150-450); RBC Distribution Width CV 14.6 % (11.6-14.6); RBC Distribution Width SD 46.5 fl (35.1-43.9); Red Blood Count 2.63 M/mm3 (4.2-5.4); White Blood Count 5.3 K/mm3 (4.4-11.0)
[2024-07-03 07:28] LABS: AST(SGOT) 12 U/L (15-37); Alanine Aminotransfer ALT/SGPT 22 U/L (13-56); Alkaline Phosphatase 73 U/L (45-117); Anion Gap 8 (5-15); BUN 10 mg/dL (7-18); BUN/Creat Ratio 16.9 RATIO (10-20); Calcium,Total 8.5 mg/dL (8.5-10.1); Chloride 110 mmol/L (98-107); Creatinine, Serum 0.59 mg/dL (0.55-1.02); EST Glomerular Filtration Rate 107 mL/min (>60); Est Glom Filt Rate - Afr Amer 129 mL/min (>60); Estimated Creatinine Clearance 71.18 ml/min; Glucose 110 mg/dL (74-106); Potassium 3.1 mmol/L (3.5-5.1); Sodium Level 141 mmol/L (136-145)
[2024-07-03 07:48] LABS: Ferritin 325 ng/mL (8-252); Iron 44 ug/dL (50-170); Iron Binding Capacity,Total 217 ug/dL (250-450); PERCENT IRON SATURATION 20.3 % (15.0-55.0)
[2024-07-03 09:45] LABS: Vitamin B12 > 2000 pg/mL (211-911)
--- NOTE | 2024-07-03 09:50 | PN.HOSP_ITS ---
Reason for Visit Reason for Visit: Diagnoses Malignant neoplasm of upper lobe, left bronchus or lung (07/02/24) Obesity, class 1 (07/02/24) Hypomagnesemia (07/02/24) Hypokalemia (07/02/24) Other psychoactive substance use, unspecified, uncomplicated (07/02/24) Metabolic encephalopathy (07/02/24) Acute cystitis without hematuria (07/02/24) Nausea (07/02/24) Dysphagia, unspecified (07/02/24) Adverse effect of unspecified drugs, medicaments and biological substances, initial encounter (07/02/24) Objective Data Objective Data Vital Signs: Vital Signs Temp Pulse Resp BP Pulse Ox O2 Del Method FiO2 97.3 F L 71 18 107/58 L 97 Room Air 21 07/03/24 09:00 07/03/24 09:00 07/03/24 09:00 07/03/24 09:00 07/03/24 09:00 07/03/24 09:00 07/03/24 01:20 Oxygen Delivery Method Room Air Weight: 193 lb 9.054 oz Body Mass Index (BMI) 33.0 Intake & Output: Intake and Output for Last 24 Hours 07/01/24 07/02/24 07/03/24 23:59 23:59 23:59 Intake Total 50 / 50 Balance 50 / 50 Lab / Micro Data 07/03/24 06:08 07/03/24 06:08 Labs: Laboratory Results - last 24 hr 07/02/24 16:28: POC Glucose 79 07/02/24 17:05: WBC 6.2, RBC 2.69 L, Hgb 8.4 L, Hct 25.6 L, MCV 95.2, MCH 31.2, MCHC 32.8, RDW Std Deviation 45.7 H, RDW Coeff of Jose Manuel 14.3, Plt Count 156, MPV 10.9, Immature Gran % (Auto) 1.900 H, Neut % (Auto) 80.0 H, Lymph % (Auto) 7.4 L , Atkinson % (Auto) 10.3 H, Eos % (Auto) 0.2, Baso % (Auto) 0.2, Absolute Neuts (auto) 5.0, Absolute Lymphs (auto) 0.46 L, Nucleated RBC % 0.3, Sodium 141, P otassium 2.8 L, Chloride 108 H, Carbon Dioxide 21.0, Anion Gap 12, BUN 13, Creatinine 0.62, Estim Creat Clear Calc 72.34, Est GFR (MDRD) Af Amer 121, Est GFR (MDRD) Non-Af 100, BUN/Creatinine Ratio 20.8 H, Glucose 125 H, Calcium 9.1, Magnesium 1.3 L, Total Bilirubin 0.40, AST 17, ALT 23, Alkaline Phosphatase 72, Ammonia 14.0, Troponin I High Sens 4, Total Protein 6.6, Albumin 3.3, Globulin 3.3, Albumin/Globulin Ratio 1.0, Folate 11.60, TSH 0.999 07/02/24 18:24: Urine Color Yellow, Urine Clarity Sl. Cloudy, Urine pH 6.0, Ur Specific [place] 1.015, Urine Protein 30 H, Urine Glucose (UA) Normal, Urine Ketones 150 A*, Urine Occult Blood 10 H, Urine Nitrite Positive H, Urine Bilirubin Negative, Urine Urobilinogen Normal, Ur Leukocyte Esterase 25 H, Urine RBC 0 SEEN, Urine WBC 0-5 SEEN, Ur Squamous Epith Cells 0 SEEN, Urine Bacteria 4+, Urine Mucus 0 SEEN 07/02/24 20:27: Ethyl Alcohol < 3.0 07/02/24 21:20: Urine Opiates Screen NEGATIVE, Urine Methadone Screen NEGATIVE, Ur Barbiturates Screen NEGATIVE, Ur Phencyclidine Scrn NEGATIVE, Ur Amphetamines Screen NEGATIVE, MDMA (Ecstasy) Screen NEGATIVE, U Benzodiazepines Scrn NEGATIVE, Urine Cocaine Screen NEGATIVE, U Cannabinoids Screen NEGATIVE, Ur Drug Screen Comment 07/02/24 21:52: Triglycerides 97, Cholesterol 109, LDL Cholesterol 51, VLDL Cholesterol 19, HDL Cholesterol 39 L, Vitamin B12 > 2000 H 07/03/24 00:17: POC Glucose 110 H 07/03/24 06:08: WBC 5.3, RBC 2.63 L, Hgb 8.4 L, Hct 25.2 L, MCV 95.8, MCH 31.9, MCHC 33.3, RDW Std Deviation 46.5 H, RDW Coeff of Jose Manuel 14.6, Plt Count 170, MPV 11.0, Immature Gran % (Auto) 1.700 H, Neut % (Auto) 67.7, Lymph % (Auto) 16.9 L, Atkinson % (Auto) 12.9 H, Eos % (Auto) 0.4, Baso % (Auto) 0.4, Absolute Neuts (auto) 3.6, Absolute Lymphs (auto) 0.90, Nucleated RBC % 0.4, Sodium 141, Potassium 3.1 L, Chloride 110 H, Carbon Dioxide 24.0, Anion Gap 8, BUN 10, Creatinine 0.59, Estim Creat Clear Calc 71.18, Est GFR (MDRD) Af Amer 129, Est GFR (MDRD) Non-Af 107, BUN/Creatinine Ratio 16.9, Glucose 110 H, Calcium 8.5, Phosphorus 3.0, Iron 44 L, TIBC 217 L, Iron Saturation 20.3, Ferritin 325 H, Total Bilirubin 0.20, A ST 12 L, ALT 22, Alkaline Phosphatase 73, Total Protein 6.0 L, Albumin 3.0 L, Globulin 3.0, Albumin/Globulin Ratio 1.0 07/03/24 06:19: POC Glucose 107 H Radiography Diagnostic Testing: Radiology Impression Chest X-Ray 07/02/24 17:24 IMPRESSION: No radiographic evidence of acute cardiopulmonary disease Reading Location: [facility] 07/02/24 17:27 IMPRESSION: No CT evidence of acute intracranial pathology. [facility] Exam Narrative Seen and examined Patient was vomiting in afternoon. Mainly gastric content after she ate little bit. She also did not move bowel for 1 week. A week ago last Friday, she had a stool test which was negative for C. difficile and enteric bacterial ID panel. She is on chemotherapy started on May, last 1 on first week of June. Next due on next Friday of July. BP low 107/58. Heart rate 71/min Physical exam General: Alert, Oriented x3, Cooperative HEENT: Atraumatic, PERRLA, EOMI, Normocephalic Oral: Oral mucosa dry. No Gingival or Mucosal Lesions/ Ulcerations Neck: Supple, No JVD, Negative Carotid Bruits Chest wall/Lungs: Air entry diminished in bilateral lung bases. No crepitation/rhonchi Cardiovascular: Regular rate, Regular Rhythm, Normal S1, Normal S2, No M/G/R Abdomen: Bowel Sounds sluggish to absent, Soft, Non Tender, Non-Distended : No dysuria. No renal angle tenderness. No suprapubic tenderness. Extremities: No edema, Capillary Refill Less than 3 Seconds Skin: Alopecia. No rashes, No breakdown Musculoskeletal: No Tenderness to Palpation of Joints or Extremities Neurological: Cranial nerves II-XII grossly intact, DTR 2+/4. No acute focal neurological deficit. Psych/Mental Status: Normal Affect, Appropriate. Const alert and no apparent distress Constitutional Narrative: Patient confused, obese, bald and chronically ill in appearance. General Appearance: cooperative Orientation / Consciousness: confused HEENT normocephalic, head/scalp atraumatic and hearing grossly normal bilaterally Eyes PERRL, EOMs intact bilaterally and conjunctivae normal Neck no lymphadenopathy and supple Resp normal respiratory effort, no retractions, no use of accessory muscles and clear to auscultation bilaterally Cardio regular rate and regular rhythm GI normal to inspection, nondistended, normoactive bowel sounds, soft to palpation, non-tender and non-distended Extremity normal to inspection, full ROM and no clubbing, cyanosis or edema Skin Skin Narrative: Patient has no evidence of rash, abscess, wounds or jaundice. Neuro CN's II-XII intact bilaterally, moves all extremities and no focal motor deficits Sensorium / Orientation: awake, alert, oriented to person and oriented to place Speech: speech normal Psych affect normal Assessment & Plan Assessment/Plan (1) Hypokalemia: (2) Hypomagnesemia: (3) Acute cystitis without hematuria: (4) Small cell lung cancer, left upper lobe: (5) Acute metabolic encephalopathy: (6) Dysphagia: QUALIFIERS: Dysphagia type: unspecified Qualified Code(s): R13.10 - Dysphagia, unspecified (7) Obesity (BMI 30.0-34.9): PLAN: Plan 68-year-old female was brought to ED as she was unable to walk and was confused as per the . She was also having pain but could not say where. Patient has history of lung cancer and on since May chemotherapy every month, third dose coming up in July. No nausea vomiting fever chills. 1. Acute dehydration hypokalemia and hypomagnesemia: Patient admitted to telemetry. On IV potassium and magnesium replacement. Repeat potassium is still low 3.1, phosphorus 3.0. IV fluid normal saline plus KCl at 100 mL/h Patient is having vomiting after food. Did not had BM for 1 week. Started on lactulose, senna S. Fleet enema ordered. Antiemetic agents ordered. 2. Suspected persistent Acute Cystitis; without hematuria: UA shows\ 4+ bacteria, elevated leukocyte esterase, positive nitrites and elevated urine ketones in spite of recently finishing a full 5-day course of oral Bactrim DS \- Continue IV ceftriaxone begun in the ER. Prelim urine culture shows GNR more than 100,000 colony 3. COPD and history of Small Cell Lung Cancer; primarily in Left upper lobe with regional lymph node metastasis on chemotherapy: Former history of tobacco abuse (quit ~2016). Next dose of chemotherapy in July might likely be delayed. 4. Acute Metabolic Encephalopathy with nausea and dysphagia: U tox was negative. B12 more than 2000. Ethyl alcohol negative. TSH normal. MRI brain reported no acute process. Speech therapy was ordered 5. Obesity grade 1; with BMI of 32 KG per square meter MARTELL; on CPAP: Weight loss recommended 6. Hyperlipidemia; on lovastatin - Resume statin and lipid profile LDL 51, HDL low 39 7. Hypothyroidism; on levothyroxine - Maintain on levothyroxine. TSH normal 8. DM-2; of unknown control on metformin -Accu-Chek before meals and at bedtime with Humalog sliding scale coverage and hypoglycemia protocol. 9. Recent history of oral thrush; on nystatin and Magic mouthwash as needed - Continue current management. 10. History of chronic anemia possible from lung cancer/chemotherapy: Hemoglobin of 8.4 g/dL present on admission with MCV of 95.2 fL this admission. Iron studies shows ferritin 325 high and iron saturation normal. 11. Other comorbidities include GERD, chronic depression on duloxetine and osteoarthritis DVT prophylaxis - Heparin 5,000U sq BID plus SCD's. Microbiology Past 72 Hours 07/02/24 18:24 Urine, Midstream Urine Culture - Preliminary Gram negative iain Laboratory Results 07/02/24 16:28: POC Glucose 79 07/02/24 17:05: WBC 6.2, RBC 2.69 L, Hgb 8.4 L, Hct 25.6 L, MCV 95.2, MCH 31.2, MCHC 32.8, RDW Std Deviation 45.7 H, RDW Coeff of Jose Manuel 14.3, Plt Count 156, MPV 10.9, Immature Gran % (Auto) 1.900 H, Neut % (Auto) 80.0 H, Lymph % (Auto) 7.4 L , Atkinson % (Auto) 10.3 H, Eos % (Auto) 0.2, Baso % (Auto) 0.2, Absolute Neuts (auto) 5.0, Absolute Lymphs (auto) 0.46 L, Nucleated RBC % 0.3, Sodium 141, P otassium 2.8 L, Chloride 108 H, Carbon Dioxide 21.0, Anion Gap 12, BUN 13, Creatinine 0.62, Estim Creat Clear Calc 72.34, Est GFR (MDRD) Af Amer 121, Est GFR (MDRD) Non-Af 100, BUN/Creatinine Ratio 20.8 H, Glucose 125 H, Hemoglobin A1c Pending, Calcium 9.1, Magnesium 1.3 L, Total Bilirubin 0.40, AST 17, ALT 23, Alkaline Phosphatase 72, Ammonia 14.0, Troponin I High Sens 4, Total Protein 6.6, Albumin 3.3, Globulin 3.3, Albumin/Globulin Ratio 1.0, Folate 11.60, TSH 0.999 07/02/24 18:24: Urine Color Yellow, Urine Clarity Sl. Cloudy, Urine pH 6.0, Ur Specific [place] 1.015, Urine Protein 30 H, Urine Glucose (UA) Normal, Urine Ketones 150 A*, Urine Occult Blood 10 H, Urine Nitrite Positive H, Urine Bilirubin Negative, Urine Urobilinogen Normal, Ur Leukocyte Esterase 25 H, Urine RBC 0 SEEN, Urine WBC 0-5 SEEN, Ur Squamous Epith Cells 0 SEEN, Urine Bacteria 4+, Urine Mucus 0 SEEN 07/02/24 20:27: Ethyl Alcohol < 3.0 07/02/24 21:20: Urine Opiates Screen NEGATIVE, Urine Methadone Screen NEGATIVE, Ur Barbiturates Screen NEGATIVE, Ur Phencyclidine Scrn NEGATIVE, Ur Amphetamines Screen NEGATIVE, MDMA (Ecstasy) Screen NEGATIVE, U Benzodiazepines Scrn NEGATIVE, Urine Cocaine Screen NEGATIVE, U Cannabinoids Screen NEGATIVE, Ur Drug Screen Comment 07/02/24 21:52: Triglycerides 97, Cholesterol 109, LDL Cholesterol 51, VLDL Cholesterol 19, HDL Cholesterol 39 L, Vitamin B12 > 2000 H 07/03/24 00:17: POC Glucose 110 H 07/03/24 06:08: WBC 5.3, RBC 2.63 L, Hgb 8.4 L, Hct 25.2 L, MCV 95.8, MCH 31.9, MCHC 33.3, RDW Std Deviation 46.5 H, RDW Coeff of Jose Manuel 14.6, Plt Count 170, MPV 11.0, Immature Gran % (Auto) 1.700 H, Neut % (Auto) 67.7, Lymph % (Auto) 16.9 L, Atkinson % (Auto) 12.9 H, Eos % (Auto) 0.4, Baso % (Auto) 0.4, Absolute Neuts (auto) 3.6, Absolute Lymphs (auto) 0.90, Nucleated RBC % 0.4, Sodium 141, Potassium 3.1 L, Chloride 110 H, Carbon Dioxide 24.0, Anion Gap 8, BUN 10, Creatinine 0.59, Estim Creat Clear Calc 71.18, Est GFR (MDRD) Af Amer 129, Est GFR (MDRD) Non-Af 107, BUN/Creatinine Ratio 16.9, Glucose 110 H, Calcium 8.5, Phosphorus 3.0, Iron 44 L, TIBC 217 L, Iron Saturation 20.3, Ferritin 325 H, Total Bilirubin 0.20, A ST 12 L, ALT 22, Alkaline Phosphatase 73, Total Protein 6.0 L, Albumin 3.0 L, Globulin 3.0, Albumin/Globulin Ratio 1.0 07/03/24 06:19: POC Glucose 107 H 07/03/24 11:21: POC Glucose 101 Charges/Coding Addendum Addendum: Total time of the visit including total time spent in counseling or coordination of care, (more than 50% of the total time, spent in obtaining medical information from nurses and other ancillary care providers ,explaining to the patient about labs, imaging, diagnosis and management of active complex medical conditions), previous medical record, review of labs and imaging is 40 minutes. Visit Charges Inpatient E&M: 63304 [facility] L3
--- NOTE | 2024-07-03 10:36 | NURSING ---
This RN is aware of Vital Signs obtained by Rosanne Johnson Student Nurse from the [facility] nursing program.
[2024-07-03 11:39] LABS: Bedside Glucose 101 mg/dL (74-106)
[2024-07-03] MEDS: KCL 20MEQ in 0.9% NS 20 MEQ/1,000 ML IV.SOLN. 100 MEQ IV (11:45)
[2024-07-03] MEDS: Ceftriaxone 1 GM/50 ML BAG IV (11:54)
[2024-07-03] MEDS: Lactobacillis Acidophilus 1 CAP PO ×3 (12:03→23:29)
[2024-07-03] MEDS: DULoxetine Hcl 60 MG Capsule PO (12:04)
[2024-07-03] MEDS: Heparin Injection (Vial) 5,000 UNIT/ML VIAL 5000 UNIT SC ×2 (12:04→23:29)
[2024-07-03] MEDS: Atorvastatin Calcium 10 MG Tablet PO (12:05)
[2024-07-03] MEDS: Ascorbic Acid 500 MG Tablet PO (12:06)
[2024-07-03] MEDS: Cholecalciferol (Vit D3) 125 MCG CAPSULE (5,000 UNITS) PO (12:06)
[2024-07-03] MEDS: Zinc Sulfate 50 mg zinc (220 mg) ORAL capsule PO (12:07)
[2024-07-03] MEDS: Ipratropium/Albuterol Sulfate 3 ML AMPUL.NEB INHALATION ×2 (13:06→20:32)
--- NOTE | 2024-07-03 14:02 | CASEMGMT ---
ADÁN BRITO Assessment: Face to Face with pt for initial transition planning/care coordination assessment. ADÁN BRITO introduced self and role at [facility], pt voices understanding and consents to assessment. Pt is A&O x4 and answers all questions appropriately at this time. Pt sitting up in chair in no distress. Care providers, pharmacy, and demographics verified/updated. Admitting Dx: Hypokalemia UTI AMS and Dysphagia PCP: [facility] Specialists: Gaurang, oncologist Preferred Pharmacy: [facility] Insurance: [employer] Prescription Benefit: yes LNOK: , Keenan; Son, Davon Living Arrangements: Pt lives with in a 2 story home with 2 steps to enter in. Pt states all her needs are on the main level and does not go upstairs. ADLs: Pt states I at baseline. Transportation: Pt drives self and denies concerns with transportation. DME: walker, cane, shower bench, CPAP HHC/SNF: Denies Hx of Pt states no concerns with going home at time of dc. Pt states no further concerns/needs. CM to follow. Advised pt to ask CM if any further question/concerns/needs arise, voices understanding. Pt Goal: Home Plan: Home with family support. Cedric MCCAIN CM
--- NOTE | 2024-07-03 14:46 | RAD_ITS ---
PROCEDURE: ABD INC DECUB AND/OR ERECT REASON FOR EXAM: Pain TECHNIQUE: Single view abdomen. COMPARISON: None FINDINGS: Massive dilation of the proximal bowel with air-fluid levels as well as the bowel measuring up to approximately 11.6 cm in greatest transaxial dimension. These findings appear worse from the CT examination from 05/30/2024. No pathological intra-abdominal calcifications. RAD/Abd Inc Decub and/or Erect IMPRESSION: As above. [facility]
[2024-07-03] MEDS: Fleet Enema 133 ML RC (16:03)
[2024-07-03] MEDS: KCL 40mEq in 0.9% NS 40 MEQ/1,000 ML IV.SOLN 100 MEQ IV (16:04)
[2024-07-03] MEDS: Metoclopramide 10 MG/2 ML Vial IV (16:24)
[2024-07-03] MEDS: Lactulose 20 GM/30 ML UDC 10 GM PO ×2 (16:31→23:29)
[2024-07-03] MEDS: Budesonide Respules 0.5 MG/2 ML AMPUL.NEB. INHALATION (20:32)
[2024-07-03 22:32] LABS: Bedside Glucose 104 mg/dL (74-106)
[2024-07-03] MEDS: Senna/Docusate Sodium 1 Tablet 2 TABLET PO (23:29)
[2024-07-04] VITALS (7 sets, daily range): BP systolic 93–107; BP diastolic 63–75; PULSE 70–88; RESP 14–20; TEMP 36.8–36.9; O2SAT 90–100; BMI 33.0
[2024-07-04 00:16] LABS: Bedside Glucose 124 mg/dL (74-106)
[2024-07-04 01:05] LABS: Hemoglobin A1c 6.4 % (3.8-5.6)
[2024-07-04] MEDS: KCL 40mEq in 0.9% NS 40 MEQ/1,000 ML IV.SOLN 100 MEQ IV (02:08)
[2024-07-04] MEDS: NYSTATIN 500,000 UNIT/5 ML UDC 500000 UNIT PO ×4 (05:37→22:47)
[2024-07-04] MEDS: Lactulose 20 GM/30 ML UDC 10 GM PO ×3 (05:37→22:46)
[2024-07-04] MEDS: Levothyroxine 100 MCG Tablet PO (05:37)
[2024-07-04 06:08] LABS: Absolute Lymphocyte Count 0.57 X10^3/uL (0.83-4.51); Absolute Neutrophil Count 2.8 X10^3/uL (2.0-7.7); Eosinophil# 0.02 X10^3/uL; Eosinophils% 0.5 % (0-5); Hematocrit 24.8 % (37-47); Hemoglobin 7.8 g/dL (12.0-15.0); Lymphocyte # 0.57 X10^3/ul (0.83-4.51); Lymphocyte % 14.1 % (19-41); Mean Corp Hgb Conc 31.5 g/dL (32-36); Mean Corpuscular Hgb 31.3 pg (27.0-32.0); Mean Corpuscular Volume 99.6 fL (81-99); Mean Platelet Vol. 10.1 fl (6.2-12.0); Monocyte# 0.55 X10^3/uL; Monocyte% 13.6 % (0-10); NRBC Flagged by Analyzer 0.5 % (0-5); Neutrophil # 2.83 X10^3/uL (2.7-7.7); Neutrophil % 70.3 % (47-70); POSITIVE DIFFERENTIAL YES; Platelet Count 197 K/mm3 (150-450); RBC Distribution Width CV 15.1 % (11.6-14.6); RBC Distribution Width SD 49.2 fl (35.1-43.9); Red Blood Count 2.49 M/mm3 (4.2-5.4)
[2024-07-04 06:50] LABS: AST(SGOT) 21 U/L (15-37); Alanine Aminotransfer ALT/SGPT 23 U/L (13-56); Albumin, Serum 2.8 g/dL (3.2-5.0); Alkaline Phosphatase 64 U/L (45-117); Anion Gap 6 (5-15); BUN 9 mg/dL (7-18); Bilirubin, Direct 0.08 mg/dL (0.00-0.30); Calcium,Total 8.5 mg/dL (8.5-10.1); Chloride 116 mmol/L (98-107); Creatinine, Serum 0.56 mg/dL (0.55-1.02); EST Glomerular Filtration Rate 113 mL/min (>60); Est Glom Filt Rate - Afr Amer 137 mL/min (>60); Estimated Creatinine Clearance 71.18 ml/min; Glucose 98 mg/dL (74-106); Phosphorus 2.6 mg/dL (2.5-4.9); Potassium 3.8 mmol/L (3.5-5.1); Protein, Total 5.8 g/dL (6.4-8.2); Sodium Level 145 mmol/L (136-145)
[2024-07-04 07:05] LABS: Bedside Glucose 111 mg/dL (74-106)
[2024-07-04] MEDS: Budesonide Respules 0.5 MG/2 ML AMPUL.NEB. INHALATION ×2 (07:08→19:40)
[2024-07-04] MEDS: Ipratropium/Albuterol Sulfate 3 ML AMPUL.NEB INHALATION ×3 (07:08→19:40)
--- NOTE | 2024-07-04 07:48 | CT_ITS ---
PROCEDURE: ABDOMEN/PEL W ORAL CONT ONLY REASON FOR EXAM: Small-bowel ileus TECHNIQUE: Abdomen and pelvis CT with intravenous contrast. COMPARISON: Reviewed. FINDINGS: Lung bases: Clear Liver: Unremarkable. Gallbladder: Unremarkable. Spleen: Unremarkable. Pancreas: Unremarkable. Adrenals: Unremarkable. Kidneys: Unremarkable. Bladder: Unremarkable. Reproductive Organs: Unremarkable. Bowel: Unremarkable. Appendix: Normal. Lymph nodes: No suspicious lymph node enlargement. Vasculature: Major vascular structures are unremarkable. Prominent vascular calcifications Peritoneum / Retroperitoneum: No ascites. No free air. Bones: Unremarkable. CT/Abdomen/Pel W ORAL Cont Only IMPRESSION: No acute CT. Bowel appears unremarkable. One or more dose reduction techniques were used (e.g., Automated exposure contr ol, adjustment of the mA and/or kV according to patient size, use of iterative reconstruction technique). Reading Location: [facility]
[2024-07-04] MEDS: Ceftriaxone 1 GM/50 ML BAG IV (08:17)
[2024-07-04] MEDS: Senna/Docusate Sodium 1 Tablet 2 TABLET PO ×2 (08:18→22:46)
[2024-07-04] MEDS: Lactobacillis Acidophilus 1 CAP PO ×4 (08:21→22:46)
[2024-07-04] MEDS: Heparin Injection (Vial) 5,000 UNIT/ML VIAL 5000 UNIT SC ×2 (08:21→22:46)
[2024-07-04] MEDS: Bisacodyl 10 MG Suppository RC (08:33)
[2024-07-04 11:10] LABS: Bedside Glucose 91 mg/dL (74-106)
[2024-07-04] MEDS: Atorvastatin Calcium 10 MG Tablet PO (11:48)
[2024-07-04] MEDS: Ascorbic Acid 500 MG Tablet PO (11:48)
[2024-07-04] MEDS: DULoxetine Hcl 60 MG Capsule PO (11:49)
[2024-07-04] MEDS: Cholecalciferol (Vit D3) 125 MCG CAPSULE (5,000 UNITS) PO (11:50)
[2024-07-04] MEDS: Zinc Sulfate 50 mg zinc (220 mg) ORAL capsule PO (11:51)
--- NOTE | 2024-07-04 12:45 | PN.HOSP_ITS ---
Reason for Visit Reason for Visit: Diagnoses Malignant neoplasm of upper lobe, left bronchus or lung (07/02/24) Obesity, class 1 (07/02/24) Hypomagnesemia (07/02/24) Hypokalemia (07/02/24) Other psychoactive substance use, unspecified, uncomplicated (07/02/24) Metabolic encephalopathy (07/02/24) Acute cystitis without hematuria (07/02/24) Nausea (07/02/24) Dysphagia, unspecified (07/02/24) Adverse effect of unspecified drugs, medicaments and biological substances, initial encounter (07/02/24) Objective Data Objective Data Vital Signs: Vital Signs Temp Pulse Resp BP Pulse Ox O2 Del Method FiO2 98.2 F 70 16 101/75 99 Room Air 21 07/04/24 08:12 07/04/24 08:12 07/04/24 08:12 07/04/24 08:12 07/04/24 08:12 07/04/24 08:12 07/03/24 01:20 Oxygen Delivery Method Room Air Weight: 193 lb 9.054 oz Body Mass Index (BMI) 33.0 Intake & Output: Intake and Output for Last 24 Hours 07/02/24 07/03/24 07/04/24 23:59 23:59 23:59 Intake Total 50 / 50 1945.67 / 2245.67 1650 / 1650 Output Total 200 / 200 Balance 50 / 50 1745.67 / 2045.67 1650 / 1650 Lab / Micro Data 07/04/24 05:56 07/04/24 05:56 Labs: Laboratory Results - last 24 hr 07/02/24 17:05: Hemoglobin A1c 6.4 H 07/03/24 16:26: POC Glucose 104 07/03/24 23:33: POC Glucose 124 H 07/04/24 05:56: WBC 4.0 L, RBC 2.49 L, Hgb 7.8 L, Hct 24.8 L, MCV 99.6 H, MCH 31.3, MCHC 31.5 L D, RDW Std Deviation 49.2 H, RDW Coeff of Jose Manuel 15.1 H, Plt Count 197, MPV 10.1, Immature Gran % (Auto) 1.500 H, Neut % (Auto) 70.3 H, Lymph % (Auto) 14.1 L, [place] % (Auto) 13.6 H, Eos % (Auto) 0.5, Baso % (Auto) 0.0, Absolute Neuts (auto) 2.8, Absolute Lymphs (auto) 0.57 L, Nucleated RBC % 0.5, Sodium 145, Potassium 3.8, Chloride 116 H, Carbon Dioxide 23.0, Anion Gap 6, BUN 9, Creatinine 0.56, Estim Creat Clear Calc 71.18, Est GFR (MDRD) Af Amer 137, Est GFR (MDRD) Non-Af 113, BUN/Creatinine Ratio 16.0, Glucose 98, Calcium 8.5, Phosphorus 2.6, Total Bilirubin 0.30, Direct Bilirubin 0.08, AST 21, ALT 23, Alkaline Phosphatase 64, Total Protein 5.8 L, Albumin 2.8 L, Globulin 3.0 07/04/24 06:48: POC Glucose 111 H 07/04/24 10:51: POC Glucose 91 Micro: Microbiology 07/02/24 18:24 Urine, Midstream Urine Culture - Final Escherichia coli Radiography Diagnostic Testing: Radiology Impression Abdomen X-Ray 07/03/24 14:46 IMPRESSION: As above. Reading Location: [facility] Physical Exam Narrative Seen and examined Patient did not had vomiting since afternoon. Yesterday after the enema was given, she had liquid BM mixed with enema fluid. No abdominal pain. Passing flatus. she had a stool test which was negative for C. difficile and enteric pathogen panel. She is on chemotherapy started on May, last 1 on first june. Next due on next Friday of July. BP low 107/58. Heart rate 71/min Physical exam General: Alert, Oriented x3, Cooperative HEENT: Atraumatic, PERRLA, EOMI, Normocephalic Oral: Oral mucosa dry. No Gingival or Mucosal Lesions/ Ulcerations Neck: Supple, No JVD, Negative Carotid Bruits Chest wall/Lungs: Air entry diminished in bilateral lung bases. No crepitation/rhonchi Cardiovascular: Regular rate, Regular Rhythm, Normal S1, Normal S2, No M/G/R Abdomen: Bowel Sounds present including, Soft, Non Tender, minimal distention : No dysuria. No renal angle tenderness. No suprapubic tenderness. Extremities: No edema, Capillary Refill Less than 3 Seconds Skin: Alopecia. No rashes, No breakdown Musculoskeletal: No Tenderness to Palpation of Joints or Extremities Neurological: Cranial nerves II-XII grossly intact, DTR 2+/4. No acute focal neurological deficit. Psych/Mental Status: Normal Affect, Appropriate. Assessment & Plan Assessment/Plan (1) Hypokalemia: (2) Hypomagnesemia: (3) Acute cystitis without hematuria: (4) Small cell lung cancer, left upper lobe: (5) Acute metabolic encephalopathy: (6) Dysphagia: QUALIFIERS: Dysphagia type: unspecified Qualified Code(s): R13.10 - Dysphagia, unspecified (7) Obesity (BMI 30.0-34.9): PLAN: Plan 68-year-old female was brought to ED as she was unable to walk and was confused as per the . She was also having pain but could not say where. Patient has history of lung cancer and on since May chemotherapy every month, third dose coming up in July. No nausea vomiting fever chills. 1. Acute dehydration hypokalemia and hypomagnesemia: Patient admitted to telemetry. On IV potassium and magnesium replacement. Repeat potassium is still low 3.1, phosphorus 3.0. IV fluid normal saline plus KCl at 100 mL/h Patient is having vomiting after food. Did not had BM for 1 week. Started on lactulose, senna S. Fleet enema ordered. Antiemetic agents ordered. Suspected colonic ileus: KUB was reviewed yesterday shows bowel ileus for which CT abdomen pelvis with oral contrast was done today. It shows contrast up to right one third of the transverse colon. Transverse colon dilated but official report pending. Discussed with the surgeon Dr. Prabhakar is consulted 2. Suspected persistent Acute Cystitis; without hematuria: UA shows\ 4+ bacteria, elevated leukocyte esterase, positive nitrites and elevated urine ketones in spite of recently finishing a full 5-day course of oral Bactrim DS \- Continue IV ceftriaxone begun in the ER. Prelim urine culture shows GNR more than 100,000 colony 2/2: Urine culture shows E. coli more than 100,000 colonies. Sensitive to ceftriaxone but resistant to fluoroquinolones. 3. COPD and history of Small Cell Lung Cancer; primarily in Left upper lobe with regional lymph node metastasis on chemotherapy: Former history of tobacco abuse (quit ~2017). Next dose of chemotherapy in July might likely be delayed. 4. Acute Metabolic Encephalopathy with nausea and dysphagia: U tox was negative. B12 more than 2000. Ethyl alcohol negative. TSH normal. MRI brain reported no acute process. Speech therapy was ordered 5. Obesity grade 1; with BMI of 32 KG per square meter MARTELL; on CPAP: Weight loss recommended 6. Hyperlipidemia; on lovastatin - Resume statin and lipid profile LDL 51, HDL low 39 7. Hypothyroidism; on levothyroxine - Maintain on levothyroxine. TSH normal 8. DM-2; of unknown control on metformin -Accu-Chek before meals and at bedtime with Humalog sliding scale coverage and hypoglycemia protocol. 9. Recent history of oral thrush; on nystatin and Magic mouthwash as needed - Continue current management. 10. History of chronic anemia possible from lung cancer/chemotherapy: Hemoglobin of 8.4 g/dL present on admission with MCV of 95.2 fL this admission. Iron studies shows ferritin 325 high and iron saturation normal. 11. Other comorbidities include GERD, chronic depression on duloxetine and osteoarthritis DVT prophylaxis - Heparin 5,000U sq BID plus SCD's. Microbiology Past 72 Hours 07/02/24 18:24 Urine, Midstream Urine Culture - Preliminary Gram negative iain Laboratory Results 07/02/24 16:28: POC Glucose 79 07/02/24 17:05: WBC 6.2, RBC 2.69 L, Hgb 8.4 L, Hct 25.6 L, MCV 95.2, MCH 31.2, MCHC 32.8, RDW Std Deviation 45.7 H, RDW Coeff of Jose Manuel 14.3, Plt Count 156, MPV 10.9, Immature Gran % (Auto) 1.900 H, Neut % (Auto) 80.0 H, Lymph % (Auto) 7.4 L , [place] % (Auto) 10.3 H, Eos % (Auto) 0.2, Baso % (Auto) 0.2, Absolute Neuts (auto) 5.0, Absolute Lymphs (auto) 0.46 L, Nucleated RBC % 0.3, Sodium 141, P otassium 2.8 L, Chloride 108 H, Carbon Dioxide 21.0, Anion Gap 12, BUN 13, Creatinine 0.62, Estim Creat Clear Calc 72.34, Est GFR (MDRD) Af Amer 121, Est GFR (MDRD) Non-Af 100, BUN/Creatinine Ratio 20.8 H, Glucose 125 H, Hemoglobin A1c Pending, Calcium 9.1, Magnesium 1.3 L, Total Bilirubin 0.40, AST 17, ALT 23, Alkaline Phosphatase 72, Ammonia 14.0, Troponin I High Sens 4, Total Protein 6.6, Albumin 3.3, Globulin 3.3, Albumin/Globulin Ratio 1.0, Folate 11.60, TSH 0.999 07/02/24 18:24: Urine Color Yellow, Urine Clarity Sl. Cloudy, Urine pH 6.0, Ur Specific [place] 1.015, Urine Protein 30 H, Urine Glucose (UA) Normal, Urine Ketones 150 A*, Urine Occult Blood 10 H, Urine Nitrite Positive H, Urine Bilirubin Negative, Urine Urobilinogen Normal, Ur Leukocyte Esterase 25 H, Urine RBC 0 SEEN, Urine WBC 0-5 SEEN, Ur Squamous Epith Cells 0 SEEN, Urine Bacteria 4+, Urine Mucus 0 SEEN 07/02/24 20:27: Ethyl Alcohol < 3.0 07/02/24 21:20: Urine Opiates Screen NEGATIVE, Urine Methadone Screen NEGATIVE, Ur Barbiturates Screen NEGATIVE, Ur Phencyclidine Scrn NEGATIVE, Ur Amphetamines Screen NEGATIVE, MDMA (Ecstasy) Screen NEGATIVE, U Benzodiazepines Scrn NEGATIVE, Urine Cocaine Screen NEGATIVE, U Cannabinoids Screen NEGATIVE, Ur Drug Screen Comment 07/02/24 21:52: Triglycerides 97, Cholesterol 109, LDL Cholesterol 51, VLDL Cholesterol 19, HDL Cholesterol 39 L, Vitamin B12 > 2000 H 07/03/24 00:17: POC Glucose 110 H 07/03/24 06:08: WBC 5.3, RBC 2.63 L, Hgb 8.4 L, Hct 25.2 L, MCV 95.8, MCH 31.9, MCHC 33.3, RDW Std Deviation 46.5 H, RDW Coeff of Jose Manuel 14.6, Plt Count 170, MPV 11.0, Immature Gran % (Auto) 1.700 H, Neut % (Auto) 67.7, Lymph % (Auto) 16.9 L, [place] % (Auto) 12.9 H, Eos % (Auto) 0.4, Baso % (Auto) 0.4, Absolute Neuts (auto) 3.6, Absolute Lymphs (auto) 0.90, Nucleated RBC % 0.4, Sodium 141, Potassium 3.1 L, Chloride 110 H, Carbon Dioxide 24.0, Anion Gap 8, BUN 10, Creatinine 0.59, Estim Creat Clear Calc 71.18, Est GFR (MDRD) Af Amer 129, Est GFR (MDRD) Non-Af 107, BUN/Creatinine Ratio 16.9, Glucose 110 H, Calcium 8.5, Phosphorus 3.0, Iron 44 L, TIBC 217 L, Iron Saturation 20.3, Ferritin 325 H, Total Bilirubin 0.20, A ST 12 L, ALT 22, Alkaline Phosphatase 73, Total Protein 6.0 L, Albumin 3.0 L, Globulin 3.0, Albumin/Globulin Ratio 1.0 07/03/24 06:19: POC Glucose 107 H 07/03/24 11:21: POC Glucose 101 Charges/Coding Visit Charges Inpatient E&M: 98229 Subs Hosp L2
[2024-07-04] MEDS: KCL 40mEq in 0.9% NS 40 MEQ/1,000 ML IV.SOLN 50 MEQ IV (13:27)
--- NOTE | 2024-07-04 16:00 | CON.PCM.SX_ITS ---
Assessment & Plan Assessment/Plan (1) Nausea: PLAN: The patient has CT scan that showed no distention. I started the patient on full liquid diet which she tolerated with no nausea or vomiting. I will advance her to a regular diet. Nicola Prabhakar MD Pager: [facility] [address] [place] [address] [facility] [address] [place] [address] Office: HPI Consult Data Date of Consult: 07/04/24 HPI Narrative HPI Narrative: ANDREA CALIX, is a 68 F who presents for nausea and vomiting. This started yesterday. She denies nausea or vomiting today in the hospital. She denies abdominal pain. [facility] Medical History Hypokalemia Diarrhea Encounter for chemotherapy management Encounter for education Wears glasses Wears dentures Post-menopausal Cancer Thyroid disease Diabetes Arthritis Anemia High cholesterol Heartburn Gastric reflux Former smoker CPAP (continuous positive airway pressure) dependence Sleep apnea Leg cramps History of edema History of echocardiogram History of stress test Regional lymph node metastasis present Primary fibromyalgia syndrome Chondromalacia Chronic obstructive lung disease Depression Hyperlipidemia Vitamin D deficiency Hypothyroidism Localized swelling, mass and lump, unspecified MARTELL (obstructive sleep apnea) Dyspnea Right ankle pain Home Medications ?Medication ?Instructions ?Recorded ?Last Taken ?Type duloxetine 60 mg capsule,delayed 60 mg PO DAILY depres mana 11/25/13 05/12/24 History release lovastatin 40 mg tablet 40 mg PO DAILY hld 11/25/13 05/12/24 History cholecalciferol (vitamin D3) 125 5,000 unit PO DAILY s upplement 06/25/23 05/12/24 History mcg (5,000 unit) capsule levothyroxine 100 mcg tablet 100 mcg PO DAILY thyroid 06/25/23 05/12/24 History metformin 1,000 mg tablet 1,000 mg PO BID dm 06/25/23 05/12/24 History ascorbate calcium (vitamin C) 500 500 mg PO DAILY supp lement 12/05/23 05/12/24 History mg tablet fluticasone fur. 100 mcg-umeclid 1 inh inhalation ARNALDO Y asthma #3 ea 02/04/24 05/12/24 Rx 62.5 mcg-vilant 25 mcg inhalat.powder (Trelegy Ellipta) albuterol sulfate 90 mcg/actuation 2 puff inhalation Q 6H asthma #18 03/15/24 Unknown Rx aerosol inhaler (Ventolin HFA) grams acetaminophen 500 mg capsule 500 mg PO Q6H PRN pain Unknown History lidocaine-prilocaine 2.5 %-2.5 % 1 applic topical ONCE PRN port 05/17/24 Unknown Rx topical cream access 30 days #30 grams ondansetron 8 mg disintegrating 8 mg PO Q8H PRN nausea and 05/17/24 Unknown Rx tablet vomiting #30 tabs prochlorperazine maleate 10 mg 10 mg PO Q6H PRN nausea and 05/17/24 Unknown Rx tablet vomiting #30 tabs MAGIC MOUTH WASH (BMX) 180 mL 15 ml PO .qid PRN pain # 180 mL 05/18/24 Unknown Rx suspension nystatin 100,000 unit/mL oral 4 ml PO Q6H 7 days #473 mL 06/01/24 Unknown Rx suspension Allergy/AdvReac Type Severity Reaction Status Date / Time vaccine adjuvant system, Allergy Rash Verified 07/02/24 16:24 [id number] liposomal (From Shingrix (PF)) varicella-zoster virus Allergy Rash Verified 07/02/24 16:24 glycoprotein E, recombinant (From Shingrix (PF)) Family History Mother Heart disease CVA (cerebral vascular accident) Brain tumor Father Cancer Stomach Heart disease Surgical History History of colonoscopy History of ankle surgery History of cataract extraction Social History Smoking Status: Former smoker quit date: 06/02/16 pack-years: 63 Tobacco: How many years used: 42 Electronic Cigarette Use: not used how long ago did patient quit smokin years second hand exposure: Yes quit status: quit date established alcohol intake: never substance use type: does not use Physical Exam Const alert and oriented x3 HEENT normocephalic Eyes PERRL Resp normal respiratory effort Cardio Rate: regular rate Rhythm: regular rhythm GI soft to palpation and non-tender Lab / Micro Data 07/04/24 05:56 07/04/24 05:56 Labs: Laboratory Results - last 24 hr 07/02/24 17:05: Hemoglobin A1c 6.4 H 07/03/24 16:26: POC Glucose 104 07/03/24 23:33: POC Glucose 124 H 07/04/24 05:56: WBC 4.0 L, RBC 2.49 L, Hgb 7.8 L, Hct 24.8 L, MCV 99.6 H, MCH 31.3, MCHC 31.5 L D, RDW Std Deviation 49.2 H, RDW Coeff of Jose Manuel 15.1 H, Plt Count 197, MPV 10.1, Immature Gran % (Auto) 1.500 H, Neut % (Auto) 70.3 H, Lymph % (Auto) 14.1 L, [place] % (Auto) 13.6 H, Eos % (Auto) 0.5, Baso % (Auto) 0.0, Absolute Neuts (auto) 2.8, Absolute Lymphs (auto) 0.57 L, Nucleated RBC % 0.5, Sodium 145, Potassium 3.8, Chloride 116 H, Carbon Dioxide 23.0, Anion Gap 6, BUN 9, Creatinine 0.56, Estim Creat Clear Calc 71.18, Est GFR (MDRD) Af Amer 137, Est GFR (MDRD) Non-Af 113, BUN/Creatinine Ratio 16.0, Glucose 98, Calcium 8.5, Phosphorus 2.6, Total Bilirubin 0.30, Direct Bilirubin 0.08, AST 21, ALT 23, Alkaline Phosphatase 64, Total Protein 5.8 L, Albumin 2.8 L, Globulin 3.0 07/04/24 06:48: POC Glucose 111 H 07/04/24 10:51: POC Glucose 91 Micro: Microbiology 07/02/24 18:24 Urine, Midstream Urine Culture - Final Escherichia coli Imaging Radiology Impression Abdomen CT 07/04/24 07:48 IMPRESSION: No acute CT. Bowel appears unremarkable. One or more dose reduction techniques were used (e.g., Automated exposure control, adjustment of the mA and/or kV according to patient size, use of iterative reconstruction technique). Reading Location: [facility]
[2024-07-04 17:38] LABS: Bedside Glucose 92 mg/dL (74-106)
[2024-07-04 23:11] LABS: Bedside Glucose 114 mg/dL (74-106)
[2024-07-05 02:00] VITALS: BP 117/70; PULSE 76; RESP 18; TEMP 36.3; O2SAT 99
[2024-07-05 03:49] VITALS: BMI 33.0
[2024-07-05 06:38] LABS: Absolute Lymphocyte Count 0.54 X10^3/uL (0.83-4.51); Absolute Neutrophil Count 2.7 X10^3/uL (2.0-7.7); Basophil# 0.01 X10^3/uL; Basophil% 0.3 % (0-1); Eosinophil# 0.02 X10^3/uL; Eosinophils% 0.5 % (0-5); Hematocrit 25.1 % (37-47); Hemoglobin 8.1 g/dL (12.0-15.0); Lymphocyte # 0.54 X10^3/ul (0.83-4.51); Mean Corp Hgb Conc 32.3 g/dL (32-36); Mean Corpuscular Hgb 32.1 pg (27.0-32.0); Mean Corpuscular Volume 99.6 fL (81-99); Mean Platelet Vol. 10.2 fl (6.2-12.0); Monocyte# 0.49 X10^3/uL; Monocyte% 12.7 % (0-10); NRBC Flagged by Analyzer 0 % (0-5); Neutrophil # 2.73 X10^3/uL (2.7-7.7); Neutrophil % 70.7 % (47-70); POSITIVE DIFFERENTIAL YES; Platelet Count 255 K/mm3 (150-450); RBC Distribution Width CV 15.5 % (11.6-14.6); RBC Distribution Width SD 49.8 fl (35.1-43.9); Red Blood Count 2.52 M/mm3 (4.2-5.4); White Blood Count 3.9 K/mm3 (4.4-11.0)
[2024-07-05] MEDS: Lactulose 20 GM/30 ML UDC 10 GM PO (06:41)
[2024-07-05] MEDS: NYSTATIN 500,000 UNIT/5 ML UDC 500000 UNIT PO (06:41)
[2024-07-05] MEDS: Levothyroxine 100 MCG Tablet PO (06:41)
[2024-07-05 07:03] LABS: Bedside Glucose 86 mg/dL (74-106)
[2024-07-05 07:20] LABS: Anion Gap 5 (5-15); BUN 5 mg/dL (7-18); BUN/Creat Ratio 7.8 RATIO (10-20); Calcium,Total 8.6 mg/dL (8.5-10.1); Chloride 116 mmol/L (98-107); Creatinine, Serum 0.64 mg/dL (0.55-1.02); EST Glomerular Filtration Rate 98 mL/min (>60); Est Glom Filt Rate - Afr Amer 119 mL/min (>60); Estimated Creatinine Clearance 71.18 ml/min; Glucose 91 mg/dL (74-106); Potassium 4.1 mmol/L (3.5-5.1); Sodium Level 145 mmol/L (136-145)
[2024-07-05 07:35] VITALS: PULSE 63; RESP 18
[2024-07-05] MEDS: Budesonide Respules 0.5 MG/2 ML AMPUL.NEB. INHALATION (07:35)
[2024-07-05] MEDS: Ipratropium/Albuterol Sulfate 3 ML AMPUL.NEB INHALATION (07:35)
--- NOTE | 2024-07-05 07:35 | PN.SURG_ITS ---
Subjective Subjective Patient is feeling well with no abdominal pain and tolerating regular diet. Objective Data Objective Data Vital Signs: Vital Signs Temp Pulse Resp BP Pulse Ox O2 Del Method FiO2 97.4 F L 76 18 117/70 99 CPAP 21 07/05/24 02:00 07/05/24 02:00 07/05/24 02:00 07/05/24 02:00 07/05/24 02:00 07/05/24 03:00 07/04/24 22:35 Oxygen Delivery Method CPAP Weight: 193 lb 9.054 oz Body Mass Index (BMI) 33.0 Intake & Output: Intake and Output for Last 24 Hours 07/03/24 07/04/24 07/05/24 23:59 23:59 23:59 Intake Total 1945.67 / 2245.67 3250 / 3500 550 / 550 Output Total 200 / 200 Balance 1745.67 / 2045.67 3250 / 3500 550 / 550 Lab / Micro Data 07/05/24 06:21 07/05/24 06:21 Labs: Laboratory Results - last 24 hr 07/04/24 10:51: POC Glucose 91 07/04/24 17:02: POC Glucose 92 07/04/24 22:42: POC Glucose 114 H 07/05/24 06:21: WBC 3.9 L, RBC 2.52 L, Hgb 8.1 L, Hct 25.1 L, MCV 99.6 H, MCH 32.1 H, MCHC 32.3, RDW Std Deviation 49.8 H, RDW Coeff of Jose Manuel 15.5 H, Plt Count 255, MPV 10.2, Immature Gran % (Auto) 1.800 H, Neut % (Auto) 70.7 H, Lymph % (Auto) 14.0 L, [place] % (Auto) 12.7 H, Eos % (Auto) 0.5, Baso % (Auto) 0.3, Absolute Neuts (auto) 2.7, Absolute Lymphs (auto) 0.54 L, Nucleated RBC % 0, Sodium 145, Potassium 4.1, Chloride 116 H, Carbon Dioxide 24.0, Anion Gap 5, BUN 5 L, Creatinine 0.64, Estim Creat Clear Calc 71.18, Est GFR (MDRD) Af Amer 119, Est GFR (MDRD) Non-Af 98, BUN/Creatinine Ratio 7.8 L, Glucose 91, Calcium 8.6 07/05/24 06:39: POC Glucose 86 Micro: Microbiology 07/02/24 18:24 Urine, Midstream Urine Culture - Final Escherichia coli Radiography Diagnostic Testing: Radiology Impression Abdomen CT 07/04/24 07:48 IMPRESSION: No acute CT. Bowel appears unremarkable. One or more dose reduction techniques were used (e.g., Automated exposure control, adjustment of the mA and/or kV according to patient size, use of iterative reconstruction technique). Reading Location: [facility] Physical Exam Const oriented x3 and no apparent distress Resp normal respiratory effort GI normal to inspection, nondistended, normoactive bowel sounds Assessment & Plan Assessment/Plan (1) Nausea: PLAN: Patient was originally admitted for nausea and vomiting. She had a KUB that showed distended loop of bowel but on CT scan there were no distended loops of bowel and the contrast went through to the colon with no delay. She was started on a regular diet yesterday afternoon which she tolerated. She can go home from my standpoint today and she has her last chemotherapy appointment today. Nicola Prabhakar MD Pager: [facility] [address] [place] [address], [address] [place] [address] Office:
[2024-07-05] MEDS: Ceftriaxone 1 GM/50 ML BAG IV (09:34)
[2024-07-05] MEDS: Cholecalciferol (Vit D3) 125 MCG CAPSULE (5,000 UNITS) PO (09:37)
[2024-07-05] MEDS: DULoxetine Hcl 60 MG Capsule PO (09:37)
[2024-07-05] MEDS: Lactobacillis Acidophilus 1 CAP PO (09:37)
[2024-07-05] MEDS: Zinc Sulfate 50 mg zinc (220 mg) ORAL capsule PO (09:37)
[2024-07-05] MEDS: Ascorbic Acid 500 MG Tablet PO (09:38)
[2024-07-05] MEDS: Heparin Injection (Vial) 5,000 UNIT/ML VIAL 5000 UNIT SC (09:38)
[2024-07-05] MEDS: Senna/Docusate Sodium 1 Tablet 2 TABLET PO (09:38)
[2024-07-05] MEDS: Atorvastatin Calcium 10 MG Tablet PO (09:38)
[2024-07-05 11:31] LABS: Bedside Glucose 84 mg/dL (74-106)
--- NOTE | 2024-07-05 11:41 | DCINST_ITS ---
Discharge Instructions DC O2, CPAP, BIPAP needs Home O2 Discharge instructions: No Follow Up Care Test Results: Test results from this visit will be discussed in further detail at your follow- up appointment, if applicable. Discharge Plan Admission Admit Date/Time: 07/02/24 20:14 Primary Reason for Your Visit: HYPOKALEMIA- UTI- ALTERED MENTAL STATUS AND DYSPHAGIA Attending Provider: Gareth Packer Primary Care Provider: Moriah Mott Consulting Providers: Jacoby Betancourt; Nicola Prabhakar Discharge Orders/Prescriptions Prescriptions: New lactulose 10 gram/15 mL Solution 10 g PO TID PRN (Reason: constipation) 30 Days Qty: 3785 0RF sennosides-docusate sodium [Stimulant Laxative Plus] 8.6-50 mg Tablet 2 tab PO BID Qty: 0 0RF L.acidoph,saliva-B.bif-S.therm 175 mg Capsule 1 cap PO BID Qty: 0 0RF Rx Instructions: Probiotic [id number] Continued cholecalciferol (vitamin D3) 125 mcg (5,000 unit) capsule 5,000 unit PO DAILY levothyroxine 100 mcg tablet 100 mcg PO DAILY Patient Comments: TAKE 1 TABLET BY MOUTH EVERY DAY metformin 1,000 mg tablet 1,000 mg PO BID Patient Comments: Take 1 tablet by mouth twice daily ascorbate calcium (vitamin C) 500 mg tablet 500 mg PO DAILY prochlorperazine maleate 10 mg tablet 10 mg PO Q6H PRN (Reason: nausea and vomiting) Qty: 30 2RF ondansetron 8 mg tablet,disintegrating 8 mg PO Q8H PRN (Reason: nausea and vomiting) Qty: 30 2RF lidocaine-prilocaine 2.5-2.5 % cream 1 applic topical ONCE PRN (Reason: port access) 30 Days Qty: 30 2RF MAGIC MOUTH WASH (BMX) 180 mL suspension 15 ml PO .qid PRN (Reason: pain) Qty: 180 5RF Rx Instructions: diphenhydramine 12.5 mg/5 mL oral liquid 60 mL; aluminum-mag hydroxide- simethicone 400 mg-400 mg-40 mg/5 mL oral susp 60 mL; Lidocaine Viscous 2 % mucosal solution 60 mL; Per 180 mL lovastatin 40 MG tablet 40 mg PO DAILY Patient Comments: duloxetine 60 MG capsule,delayed release(DR/EC) 60 mg PO DAILY Patient Comments: acetaminophen 500 mg capsule 500 mg PO Q6H PRN (Reason: pain) nystatin 100,000 unit/mL suspension 4 ml PO Q6H 7 Days Qty: 473 0RF Rx Instructions: swish and swallow Trelegy Ellipta 100-62.5-25 mcg blister with device 1 inh INHALATION DAILY Qty: 3 3RF albuterol sulfate [Ventolin HFA] 90 mcg/actuation HFA aerosol inhaler 2 puff INHALATION Q6H Qty: 18 11RF Referrals / Follow Up: Moriah Mott, [facility] [Primary Care Provider] - Nicola Prabhakar MD [Med Staff - Active Staff] - Within 1 Month (Follow-up for large bowel ileus/chronic constipation) Leighann Arellano NP, [facility] [Med Staff - Adv Practice Prof] - Within 2 Weeks Disposition Disposition (needs filled in before D/C Order can be placed): Home, Self Care
--- NOTE | 2024-07-05 12:35 | PCM.DC.SUM ---
Providers Date of Admission: 07/02/24 Date of Discharge: 07/05/24 Primary Care Physician: ANNETTE Willis Consultations 07/04/24 07:53 Consult: General Surgery Routine Consulting Provider: Nicola Prabhakar Reason for Consult: small bowel ileus/constipation x 1 wk EMERGENT Consult: No MD Notified: Yes Date Notified: 07/04/24 Time Notified: 07:53 Method of Notification: Verbal Reason For Visit: HYPOKALEMIA UTI AMS AND DYSPHAGIA Diagnosis Discharge Diagnosis (1) Nausea: Status: Acute Code(s): R11.0 - Nausea Plan 68-year-old female was brought to ED as she was unable to walk and was confused as per the . She was also having pain but could not say where. Patient has history of lung cancer and on since May chemotherapy every month, third dose coming up in July. No nausea vomiting fever chills. 1. Acute dehydration hypokalemia and hypomagnesemia: Patient admitted to telemetry. On IV potassium and magnesium replacement. Repeat potassium is still low 3.1, phosphorus 3.0. IV fluid normal saline plus KCl at 100 mL/h Patient is having vomiting after food. Did not had BM for 1 week. Started on lactulose, senna S. Fleet enema ordered. Antiemetic agents ordered. Suspected colonic ileus: KUB was reviewed yesterday shows bowel ileus for which CT abdomen pelvis with oral contrast was done today. It shows contrast up to right one third of the transverse colon. Transverse colon dilated but official report pending. Discussed with the surgeon Dr. Prabhakar is consulted 2/3: Discussed with Dr. Prabhakar yesterday. He signed off at patient moving bowel. She states she was moving her bowels daily in the past but after chemo and radiation she is having problems with constipation. Prescription given for lactulose. Continue zago-von-nrijest senna S. Follow-up with Dr. Prabhakar in 1 month. Follow-up in oncology clinic in 2 weeks to reschedule chemotherapy 2. Suspected persistent Acute Cystitis; without hematuria: UA shows\ 4+ bacteria, elevated leukocyte esterase, positive nitrites and elevated urine ketones in spite of recently finishing a full 5-day course of oral Bactrim DS \- Continue IV ceftriaxone begun in the ER. Prelim urine culture shows GNR more than 100,000 colony 2/2: Urine culture shows E. coli more than 100,000 colonies. Sensitive to ceftriaxone but resistant to fluoroquinolones. 2/3: Patient completed 4 doses of ceftriaxone does not need any further. Acute cystitis. 3. COPD and history of Small Cell Lung Cancer; primarily in Left upper lobe with regional lymph node metastasis on chemotherapy: Former history of tobacco abuse (quit ~2016). Next dose of chemotherapy in July might likely be delayed. 4. Acute Metabolic Encephalopathy with nausea and dysphagia: U tox was negative. B12 more than 2000. Ethyl alcohol negative. TSH normal. MRI brain reported no acute process. Speech therapy was ordered 2/3: Acute metabolic encephalopathy resolved 5. Obesity grade 1; with BMI of 32 KG per square meter MARTELL; on CPAP: Weight loss recommended 6. Hyperlipidemia; on lovastatin - Resume statin and lipid profile LDL 51, HDL low 39 7. Hypothyroidism; on levothyroxine - Maintain on levothyroxine. TSH normal 8. DM-2; of unknown control on metformin -Accu-Chek before meals and at bedtime with Humalog sliding scale coverage and hypoglycemia protocol. 9. Recent history of oral thrush; on nystatin and Magic mouthwash as needed - Continue current management. 10. History of chronic anemia possible from lung cancer/chemotherapy: Hemoglobin of 8.4 g/dL present on admission with MCV of 95.2 fL this admission. Iron studies shows ferritin 325 high and iron saturation normal. 11. Other comorbidities include GERD, chronic depression on duloxetine and osteoarthritis DVT prophylaxis - Heparin 5,000U sq BID plus SCD's. Discharge medication reconciliation done. Discharge follow-up instructions completed. Discharge process discussed with the patient and all questions were answered to patient's satisfaction. Follow with PCP in 1 to 2 weeks Total time spent, exact 35 minutes on discharge meds reconciliation, examination, coordination of care with nurses and ancillary staff, review of imaging and blood test and discussion with the patient on follow-up instructions. Microbiology Past 72 Hours 07/02/24 18:24 Urine, Midstream Urine Culture - Preliminary Gram negative iain Laboratory Results 07/02/24 16:28: POC Glucose 79 07/02/24 17:05: WBC 6.2, RBC 2.69 L, Hgb 8.4 L, Hct 25.6 L, MCV 95.2, MCH 31.2, MCHC 32.8, RDW Std Deviation 45.7 H, RDW Coeff of Jose Manuel 14.3, Plt Count 156, MPV 10.9, Immature Gran % (Auto) 1.900 H, Neut % (Auto) 80.0 H, Lymph % (Auto) 7.4 L, [place] % (Auto) 10.3 H, Eos % (Auto) 0.2, Baso % (Auto) 0.2, Absolute Neuts (auto) 5.0, Absolute Lymphs (auto) 0.46 L, Nucleated RBC % 0.3, Sodium 141, Potassium 2.8 L, Chloride 108 H, Carbon Dioxide 21.0, Anion Gap 12, BUN 13, Creatinine 0.62, Estim Creat Clear Calc 72.34, Est GFR (MDRD) Af Amer 121, Est GFR (MDRD) Non-Af 100, BUN/Creatinine Ratio 20.8 H, Glucose 125 H, Hemoglobin A1c Pending, Calcium 9.1, Magnesium 1.3 L, Total Bilirubin 0.40, AST 17, ALT 23, Alkaline Phosphatase 72, Ammonia 14.0, Troponin I High Sens 4, Total Protein 6.6, Albumin 3.3, Globulin 3.3, Albumin/Globulin Ratio 1.0, Folate 11.60, TSH 0.999 07/02/24 18:24: Urine Color Yellow, Urine Clarity Sl. Cloudy, Urine pH 6.0, Ur Specific [place] 1.015, Urine Protein 30 H, Urine Glucose (UA) Normal, Urine Ketones 150 A*, Urine Occult Blood 10 H, Urine Nitrite Positive H, Urine Bilirubin Negative, Urine Urobilinogen Normal, Ur Leukocyte Esterase 25 H, Urine RBC 0 SEEN, Urine WBC 0-5 SEEN, Ur Squamous Epith Cells 0 SEEN, Urine Bacteria 4+, Urine Mucus 0 SEEN 07/02/24 20:27: Ethyl Alcohol < 3.0 07/02/24 21:20: Urine Opiates Screen NEGATIVE, Urine Methadone Screen NEGATIVE, Ur Barbiturates Screen NEGATIVE, Ur Phencyclidine Scrn NEGATIVE, Ur Amphetamines Screen NEGATIVE, MDMA (Ecstasy) Screen NEGATIVE, U Benzodiazepines Scrn NEGATIVE, Urine Cocaine Screen NEGATIVE, U Cannabinoids Screen NEGATIVE, Ur Drug Screen Comment 07/02/24 21:52: Triglycerides 97, Cholesterol 109, LDL Cholesterol 51, VLDL Cholesterol 19, HDL Cholesterol 39 L, Vitamin B12 > 2000 H 07/03/24 00:17: POC Glucose 110 H 07/03/24 06:08: WBC 5.3, RBC 2.63 L, Hgb 8.4 L, Hct 25.2 L, MCV 95.8, MCH 31.9, MCHC 33.3, RDW Std Deviation 46.5 H, RDW Coeff of Jose Manuel 14.6, Plt Count 170, MPV 11.0, Immature Gran % (Auto) 1.700 H, Neut % (Auto) 67.7, Lymph % (Auto) 16.9 L, [place] % (Auto) 12.9 H, Eos % (Auto) 0.4, Baso % (Auto) 0.4, Absolute Neuts (auto) 3.6, Absolute Lymphs (auto) 0.90, Nucleated RBC % 0.4, Sodium 141, Potassium 3.1 L, Chloride 110 H, Carbon Dioxide 24.0, Anion Gap 8, BUN 10, Creatinine 0.59, Estim Creat Clear Calc 71.18, Est GFR (MDRD) Af Amer 129, Est GFR (MDRD) Non-Af 107, BUN/Creatinine Ratio 16.9, Glucose 110 H, Calcium 8.5, Phosphorus 3.0, Iron 44 L, TIBC 217 L, Iron Saturation 20.3, Ferritin 325 H, Total Bilirubin 0.20, AST 12 L, ALT 22, Alkaline Phosphatase 73, Total Protein 6.0 L, Albumin 3.0 L, Globulin 3.0, Albumin/Globulin Ratio 1.0 07/03/24 06:19: POC Glucose 107 H 07/03/24 11:21: POC Glucose 101 Medications at Discharge Home Medications duloxetine 60 mg capsule,delayed release 60 mg PO DAILY depression 11/25/13 lovastatin 40 mg tablet 40 mg PO DAILY hld 11/25/13 cholecalciferol (vitamin D3) 125 mcg (5,000 unit) capsule 5,000 unit PO DAILY supplement 06/25/23 levothyroxine 100 mcg tablet 100 mcg PO DAILY thyroid 06/25/23 metformin 1,000 mg tablet 1,000 mg PO BID dm 06/25/23 ascorbate calcium (vitamin C) 500 mg tablet 500 mg PO DAILY supplement 12/05/23 fluticasone fur. 100 mcg-umeclid 62.5 mcg-vilant 25 mcg inhalat.powder (Trelegy Ellipta) 1 inh inhalation DAILY asthma #3 ea 02/04/24 albuterol sulfate 90 mcg/actuation aerosol inhaler (Ventolin HFA) 2 puff inhalation Q6H asthma #18 grams 03/15/24 acetaminophen 500 mg capsule 500 mg PO Q6H PRN pain 05/12/24 lidocaine-prilocaine 2.5 %-2.5 % topical cream 1 applic topical ONCE PRN port access 30 days #30 grams 05/17/24 ondansetron 8 mg disintegrating tablet 8 mg PO Q8H PRN nausea and vomiting #30 tabs 05/17/24 prochlorperazine maleate 10 mg tablet 10 mg PO Q6H PRN nausea and vomiting #30 tabs 05/17/24 MAGIC MOUTH WASH (BMX) 180 mL suspension 15 ml PO .qid PRN pain #180 mL 05/18/24 nystatin 100,000 unit/mL oral suspension 4 ml PO Q6H 7 days #473 mL 06/01/24 L.acidophil,salivari-Bifido bifidum-Strep thermoph 175 mg capsule 1 cap PO BID #0 caps 07/05/24 lactulose 10 gram/15 mL oral solution 10 g (15 mL) PO TID PRN constipation 30 days #3,785 mL 07/05/24 sennosides 8.6 mg-docusate sodium 50 mg tablet (Stimulant Laxative Plus) 2 tab PO BID #0 tabs 07/05/24 Physical Exam Narrative Seen and examined Patient moving bowel. Advised to continue stool softener at home. Physical exam General: Alert, Oriented x3, Cooperative HEENT: Atraumatic, PERRLA, EOMI, Normocephalic Oral: Oral mucosa dry. No Gingival or Mucosal Lesions/ Ulcerations Neck: Supple, No JVD, Negative Carotid Bruits Chest wall/Lungs: Air entry diminished in bilateral lung bases. No crepitation/rhonchi Cardiovascular: Regular rate, Regular Rhythm, Normal S1, Normal S2, No M/G/R Abdomen: Bowel Sounds present including, Soft, Non Tender, : No dysuria. No renal angle tenderness. No suprapubic tenderness. Extremities: No edema, Capillary Refill Less than 3 Seconds Skin: Alopecia. No rashes, No breakdown Musculoskeletal: No Tenderness to Palpation of Joints or Extremities Neurological: Cranial nerves II-XII grossly intact, DTR 2+/4. No acute focal neurological deficit. Psych/Mental Status: Normal Affect, Appropriate. Weight / BMI Weight Weight: 193 lb 9.054 oz Body Mass Index (BMI) 33.0 ABG / Lab / Microbiology Data 07/05/24 06:21 07/05/24 06:21 Laboratory: Laboratory Results - last 24 hr 07/04/24 17:02: POC Glucose 92 07/04/24 22:42: POC Glucose 114 H 07/05/24 06:21: WBC 3.9 L, RBC 2.52 L, Hgb 8.1 L, Hct 25.1 L, MCV 99.6 H, MCH 32.1 H, MCHC 32.3, RDW Std Deviation 49.8 H, RDW Coeff of Jose Manuel 15.5 H, Plt Count 255, MPV 10.2, Immature Gran % (Auto) 1.800 H, Neut % (Auto) 70.7 H, Lymph % (Auto) 14.0 L, [place] % (Auto) 12.7 H, Eos % (Auto) 0.5, Baso % (Auto) 0.3, Absolute Neuts (auto) 2.7, Absolute Lymphs (auto) 0.54 L, Nucleated RBC % 0, Sodium 145, Potassium 4.1, Chloride 116 H, Carbon Dioxide 24.0, Anion Gap 5, BUN 5 L, Creatinine 0.64, Estim Creat Clear Calc 71.18, Est GFR (MDRD) Af Amer 119, Est GFR (MDRD) Non-Af 98, BUN/Creatinine Ratio 7.8 L, Glucose 91, Calcium 8.6 07/05/24 06:39: POC Glucose 86 07/05/24 11:13: POC Glucose 84 Microbiology: Microbiology 07/02/24 18:24 Urine, Midstream Urine Culture - Final Escherichia coli Radiography Diagnostic Testing: Radiology Impression Abdomen CT 07/04/24 07:48 IMPRESSION: No acute CT. Bowel appears unremarkable. One or more dose reduction techniques were used (e.g., Automated exposure control, adjustment of the mA and/or kV according to patient size, use of iterative reconstruction technique). [facility] Inst[facility] DC O2, CPAP, BIPAP Needs PSN CPAP & BiPAP: BiPAP & CPAP Settings per PSN Mode CPAP 07/05/24 02:20 Bipap Delivery Device Face Mask 07/05/24 02:20 BiPAP Expiratory Pressure 10 07/05/24 02:20 Fraction of Inspired Oxygen ( 21 07/04/24 22:35 FIO2) Home O2 Discharge instructions: No Meaningful Use Info Meaningful Use Meaningful Use Diagnoses (Choose all that apply): None applicable Ischemic Stroke Statin Dosing Therapy Reference: STATIN DOSE THERAPY REFERENCE: * Patients > 75 years receive moderate or high dose statin therapy. * Patients 75 years or YOUNGER should receive HIGH intensity statin dose unless contraindicated. You will be required to document reason for non-treatment if statin daily dose does not meet guidelines. HIGH DOSE STATIN THERAPY DAILY Atorvastatin > than or = to 40 mg Rosuvastatin > than or = to 20 mg Amlodipine + Atorvastatin > than or = to 2.5/40 mg Ezetimibe + Simvastatin 10/80 mg Simvastatin 80mg Discharge Plan Admission Admit Date/Time: 07/02/24 20:14 Primary Reason for Your Visit: HYPOKALEMIA- UTI- ALTERED MENTAL STATUS AND DYSPHAGIA Attending Provider: Gareth Packer Primary Care Provider: Moriah Mott Consulting Providers: Jacoby Betancourt; Nicola Prabhakar Discharge Orders/Prescriptions Prescriptions: New lactulose 10 gram/15 mL Solution 10 g PO TID PRN (Reason: constipation) 30 Days Qty: 3785 0RF sennosides-docusate sodium [Stimulant Laxative Plus] 8.6-50 mg Tablet 2 tab PO BID Qty: 0 0RF L.acidoph,saliva-B.bif-S.therm 175 mg Capsule 1 cap PO BID Qty: 0 0RF Rx Instructions: Probiotic [id number] Continued cholecalciferol (vitamin D3) 125 mcg (5,000 unit) capsule 5,000 unit PO DAILY levothyroxine 100 mcg tablet 100 mcg PO DAILY Patient Comments: TAKE 1 TABLET BY MOUTH EVERY DAY metformin 1,000 mg tablet 1,000 mg PO BID Patient Comments: Take 1 tablet by mouth twice daily ascorbate calcium (vitamin C) 500 mg tablet 500 mg PO DAILY prochlorperazine maleate 10 mg tablet 10 mg PO Q6H PRN (Reason: nausea and vomiting) Qty: 30 2RF ondansetron 8 mg tablet,disintegrating 8 mg PO Q8H PRN (Reason: nausea and vomiting) Qty: 30 2RF lidocaine-prilocaine 2.5-2.5 % cream 1 applic topical ONCE PRN (Reason: port access) 30 Days Qty: 30 2RF MAGIC MOUTH WASH (BMX) 180 mL suspension 15 ml PO .qid PRN (Reason: pain) Qty: 180 5RF Rx Instructions: diphenhydramine 12.5 mg/5 mL oral liquid 60 mL; aluminum-mag hydroxide-simethicone 400 mg-400 mg-40 mg/5 mL oral susp 60 mL; Lidocaine Viscous 2 % mucosal solution 60 mL; Per 180 mL lovastatin 40 MG tablet 40 mg PO DAILY Patient Comments: duloxetine 60 MG capsule,delayed release(DR/EC) 60 mg PO DAILY Patient Comments: acetaminophen 500 mg capsule 500 mg PO Q6H PRN (Reason: pain) nystatin 100,000 unit/mL suspension 4 ml PO Q6H 7 Days Qty: 473 0RF Rx Instructions: swish and swallow Trelegy Ellipta 100-62.5-25 mcg blister with device 1 inh INHALATION DAILY Qty: 3 3RF albuterol sulfate [Ventolin HFA] 90 mcg/actuation HFA aerosol inhaler 2 puff INHALATION Q6H Qty: 18 11RF Referrals / Follow Up: Nicola Prabhakar MD [Med Staff - Active Staff] - Within 1 Month (Follow-up for large bowel ileus/chronic constipation) Moriah Mott NP-C [Primary Care Provider] - Leighann Arellano NP, NP-C [Med Staff - Adv Practice Prof] - Within 2 Weeks Disposition Disposition (needs filled in before D/C Order can be placed): Home, Self Care Charges/Coding Visit Charges Inpatient E&M: 46476 Disch Hosp >30min
--- NOTE | 2024-07-05 13:00 | CHAPLAIN ---
Type of Pastoral Visit _x__ Initial Visit ___ Follow-up Visit ___ On-call Visit ___ General Patient Visit ___ Spiritual Assessment ___ Family Conference ___ Bereavement ___ Rapid Response ___ Code Blue ___ Other (describe below) Pastoral Care Referral From _x__ Patient ___ Family ___ Nurse ___ Physician ___ Sports Medicine Coordinator ___ Motion Picture Actor ___ Other (describe below) Sacrament/Intervention __x_ Active listening ___ Anointing ___ Catholic ___ Bereavement ___ Communion _x__ Gertrudis exploration ___ ___ Life review _x__ Prayer ___ Reconciliation ___ Sacrament of Sick ___ Supportive presence ___ Wedding ___ Other (describe below) Pastoral Comments patient is welcoming as she remembers this datastage architect from previous admissions; pt gives update which includes a concern about a temporary delay in her chemo treatments; pt is expressive about her gertrudis in God and His plan for her life, no matter what she faces; pt agrees that she has to take matters one day at a time; pt acknowledges that spouse and sometimes me has some worries about what I'm experiencing; pt welcomes presence and prayer for support
[2024-07-05] MEDS: 0.9% Saline Lock 10 ML Syringe IV (13:17)
[2024-07-05 14:00] VITALS: BP 97/76; PULSE 97; RESP 18; TEMP 36.6; O2SAT 97
[2024-07-05 14:28] LABS: Xtra Tube EP Lab EXTRA TUBE
== END 2024-07-05 14:14 | disposition home or self-care (01) | DRG 388 ==
LOC: ED 20:28 → MS3 20:34
PROVIDERS: Admitting Provider Internal Medicine; Emergency Provider Emergency Medicine; PCP Nurse Practitioner Family; Visit Provider Internal Medicine
DX: K56.7 Ileus, unspecified (principal); G93.41 Metabolic encephalopathy; C77.9 Secondary and unspecified malignant neoplasm of lymph node, unspecified; C34.12 Malignant neoplasm of upper lobe, left bronchus or lung; C34.90 Malignant neoplasm of unspecified part of unspecified bronchus or lung; N30.00 Acute cystitis without hematuria; R13.10 Dysphagia, unspecified; B96.20 Unspecified Escherichia coli [E. coli] as the cause of diseases classified elsewhere; J44.9 Chronic obstructive pulmonary disease, unspecified; E11.9 Type 2 diabetes mellitus without complications; E03.9 Hypothyroidism, unspecified; D63.0 Anemia in neoplastic disease; E66.9 Obesity, unspecified; Z95.828 Presence of other vascular implants and grafts; M17.0 Bilateral primary osteoarthritis of knee; G47.33 Obstructive sleep apnea (adult) (pediatric); E83.42 Hypomagnesemia; E78.00 Pure hypercholesterolemia, unspecified; M79.7 Fibromyalgia; E87.6 Hypokalemia; E86.0 Dehydration; R19.7 Diarrhea, unspecified; R11.2 Nausea with vomiting, unspecified; Z87.891 Personal history of nicotine dependence; Z79.84 Long term (current) use of oral hypoglycemic drugs; Z79.51 Long term (current) use of inhaled steroids; Z79.890 Hormone replacement therapy; Z68.32 Body mass index [BMI] 32.0-32.9, adult; Z88.8 Allergy status to other drugs, medicaments and biological substances; Z79.02 Long term (current) use of antithrombotics/antiplatelets; Z79.899 Other long term (current) drug therapy; T50.915A Adverse effect of multiple unspecified drugs, medicaments and biological substances, initial encounter
CPT/HCPCS: 36415; 70450; 70551; 71045; 74019; 74176; 80048; 80053; 80061; 80076; 80307; 81001; 82077; 82140; 82607; 82728; 82746; 82962; 83036; 83540; 83550; 83735; 84100; 84443; 84484; 85025; 87077; 87086; 87088; 87186; 92610; 93005; 94640; 94660; 94668; 97162; 97166; 97535; 99285; A4216; J2405

== ENCOUNTER → 2024-08-10 | Outpatient (CLI) | payer MEDICARE, OTHER, SELFPAY ==
--- NOTE | 2024-08-10 10:43 | MRI_ITS ---
PROCEDURE: MRI brain without and with IV contrast REASON FOR EXAM: Lung carcinoma, evaluate for metastatic disease TECHNIQUE: Multiplanar multisequence MR images of the brain were obtained before and after the administration of 17 mL of intravenous Clariscan. COMPARISON: 05/09/2024 FINDINGS: No diffusion restriction to suggest acute/subacute ischemia. No evidence of acute intracranial hemorrhage, midline shift or mass effect. No chronic microhemorrhage. Cerebral volume is age-appropriate. Minimal chronic small-vessel ischemic changes in the bifrontal lobes. No cortical edema. No pathologic enhancement. Globes are intact. Paranasal sinuses and mastoid air cells are clear. MRI/Brain W/WO Contrast IMPRESSION: No acute process or pathologic enhancement. Reading Location: [facility]
[2024-08-10] MEDS: 0.9 % NaCl (Sterile) Posiflush 10 mL IV (12:07)
[2024-08-10] MEDS: 0.9% Saline Lock 10 ML Syringe IV (12:15)
== END | disposition home or self-care (01) ==
LOC: MRI 10:36
PROVIDERS: PCP Nurse Practitioner Family; Referring Provider Student in an Organized Health Care Education/Training Program; Visit Provider Student in an Organized Health Care Education/Training Program
DX: C34.12 Malignant neoplasm of upper lobe, left bronchus or lung (principal)
CPT/HCPCS: 70553; A9575; A4216

== ENCOUNTER → 2024-08-23 | Outpatient (CLI) | payer MEDICARE, OTHER, SELFPAY ==
--- NOTE | 2024-08-23 13:49 | CT_ITS ---
PROCEDURE: CT CHEST AND ABD W/ CONTRAST 08/23/2024 REASON FOR EXAM: 69 yo F, squamous cell carcinoma of the lung, assess response to treatment therapy. TECHNIQUE: Chest and abdomen CT with intravenous contrast. Coronal and Sagittal reconstruction series were provided. One or more dose reduction techniques were used (e.g., Automated exposure control, adjustment of the mA and/or kV according to patient size, use of iterative reconstruction technique. PATIENT PREPARATION: Per protocol ORAL CONTRAST TYPE: None. CONTRAST: Isovue 300 VOLUME: 100mL RADIATION DOSE SUMMARY: CTDlvol: 33 mGy DLP: 741 mGycm COMPARISON: CT abdomen/pelvis 07/04/24, PET/CT 04/01/24 CT chest 02/24/2024. FINDINGS: CT CHEST: Hardware: Right chest port with tip terminating in the right atrium. Lymph nodes: No mediastinal, hilar, or axillary lymphadenopathy. Heart and Vasculature: The heart is normal in size without pericardial effusion. No coronary artery or thoracic aortic calcifications. The great vessels are normal in caliber. Lungs and Airways: Central airways are patent. Visualization is slightly limited by motion artifact. Decreased size of the left apical pulmonary nodule, which abuts the pleural surface, measuring approximately 0.8 x 0.5 cm (series 2, image 19), previously 1.0 x 0.8 cm. Persistent ground-glass opacification within the anterior left upper lobe. No pleural effusion or pneumothorax. Bones: No aggressive osseous lesions. CT ABDOMEN: Liver: The liver is normal in size without focal hepatic mass. The major portal veins are patent. No biliary ductal dilation. Gallbladder: No radiopaque stones within the gallbladder. Spleen: Unremarkable. Pancreas: Unremarkable. Adrenals: Unremarkable. Kidneys: No hydronephrosis or nephrolithiasis. Bowel: Persistent distention of the transverse colon without visualized bowel obstruction or dilation. Normal appendix. No upper abdominal ascites or free air. Lymph nodes: No retroperitoneal or mesenteric lymphadenopathy. Vasculature: Marked mixed calcific plaque of the aortoiliac vessels. Bones: No aggressive osseous lesions. CT/CT Chest AND Abd W/ Contrast IMPRESSION: CT chest: 1. Decreased size of the left apical pulmonary nodule. 2. Persistent ground-glass opacification within the anterior left upper lobe, w hich is indeterminate in etiology and may represent infectious/inflammatory pneumonitis. Continued attention on follow-u p imaging recommended. CT abdomen: No metastatic disease within the abdomen. Reading Location: [id number]
[2024-08-23] MEDS: 0.9 % NaCl (Sterile) Posiflush 10 mL IV (14:20)
[2024-08-23] MEDS: 0.9% Saline Lock 10 ML Syringe IV (14:30)
== END | disposition home or self-care (01) ==
LOC: CT 13:49
PROVIDERS: PCP Nurse Practitioner Family; Referring Provider Nurse Practitioner Family; Visit Provider Nurse Practitioner Family
DX: C34.12 Malignant neoplasm of upper lobe, left bronchus or lung (principal)
CPT/HCPCS: 71260; 74160; Q9967; A4216

== ENCOUNTER → 2024-10-15 | Outpatient (CLI) | payer MEDICARE, OTHER, SELFPAY ==
--- NOTE | 2024-10-15 14:13 | BI_ITS ---
EXAM: SCRN MAMM (CAD)W/HENRRY BILAT DATE: 10/15/2024 CLINICAL HISTORY: F, Age 69 y/o , SCREENING BREAST CANCER RISK ASSESSMENT: Not reported TECHNIQUE: Bilateral screening digital breast tomosynthesis with 2D and 3D images. Computer aided detection. COMPARISON: Prior exam(s) were compared FINDINGS: TISSUE DENSITY: The breast tissue is heterogenously dense, which may obscure small masses. Bilateral Breast Mammographic Findings: No suspicious masses, calcifications or other abnormalities are identified. BI/SCRN MAMM (CAD)W/HENRRY BILAT IMPRESSION: OVERALL FINAL ASSESSMENT: BIRADS 1 NEGATIVE RECOMMENDATION: Routine annual follow-up in 1 Year A letter with findings and recommendations will be mailed to the patient. Reading Location: [id number]
== END | disposition home or self-care (01) ==
LOC: OPBI 14:11
PROVIDERS: PCP Nurse Practitioner Family; Referring Provider Nurse Practitioner Family; Visit Provider Nurse Practitioner Family
DX: Z12.31 Encounter for screening mammogram for malignant neoplasm of breast (principal)
CPT/HCPCS: 77063; 77067

== ENCOUNTER → 2024-11-10 | Outpatient (CLI) | payer MEDICARE, OTHER, SELFPAY ==
--- NOTE | 2024-11-10 13:36 | MRI_ITS ---
PROCEDURE: BRAIN W/WO CONTRAST 11/10/2024 REASON FOR EXAM: SCLC, 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 Multiplanar and multisequence images were obtained. CONTRAST: Clariscan VOLUME: 19 mL COMPARISON: 08/10/2024. FINDINGS: Mild global parenchymal atrophy. Minimal chronic microvascular ischemia. No evidence acute hemorrhage or infarction. No extra-axial blood or fluid collections. Trace bilateral partial mastoid effusions. No abnormal intracranial enhancement. The paranasal sinuses are clear. MRI/Brain W/WO Contrast IMPRESSION: No acute intracranial abnormality. No abnormal enhancement. Reading Location: [place] [id number]
== END | disposition home or self-care (01) ==
LOC: OPMRI 13:27
PROVIDERS: PCP Nurse Practitioner Family; Referring Provider Student in an Organized Health Care Education/Training Program; Visit Provider Student in an Organized Health Care Education/Training Program
DX: C34.12 Malignant neoplasm of upper lobe, left bronchus or lung (principal)
CPT/HCPCS: 70553; A9575

== ENCOUNTER → 2024-12-24 | Outpatient (CLI) | payer MEDICARE, OTHER, SELFPAY ==
--- NOTE | 2024-12-24 12:37 | CT_ITS ---
PROCEDURE: CT CHEST AND ABD W/ CONTRAST 12/24/2024 REASON FOR EXAM: F/U SCLC TECHNIQUE: Chest and abdomen CT with intravenous contrast. Coronal and Sagittal reconstruction series were provided. One or more dose reduction techniques were used (e.g., Automated exposure control, adjustment of the mA and/or kV according to patient size, use of iterative reconstruction technique. PATIENT PREPARATION: Per protocol ORAL CONTRAST TYPE: None. CONTRAST: Isovue 370 VOLUME: 100mL RADIATION DOSE SUMMARY: CTDlvol: 11.5 mGy DLP: 741.7 mGycm COMPARISON: Prior study dated August 23, 2024. FINDINGS: CT CHEST: Hardware: A right-sided port a catheter is seen with the tip in the superior vena cava. Lymph nodes: Persistent 2.3 cm x 2.3 cm rounded nodular density in the anterior mediastinum superiorly suggestive of a lymph node. This has increased slightly in size as compared to prior study. Mild enlargement of precarinal lymph nodes. Mildly enlarged bilateral hilar lymph nodes as compared to prior study. Heart and Vasculature: Coronary artery calcification. Lungs and Airways: Since prior study, there is evidence of increased linear markings with areas of confluence and findings suggestive of bronchiectasis in the left lung apex and left upper lobe. Irregular nodular densities are seen. This may represent post radiation fibrosis if the patient has received radiation at that site. Correlation with a PET scan recommended. There is also evidence of a 9.4 mm pleural-based nodule in the anterior aspect of the right lower lobe adherent to the minor fissure as seen on axial image number 60 i. ncreased linear markings at the lung bases suggestive of scarring. Pleura: No significant pleural effusion is seen. CT ABDOMEN: Liver: Fatty infiltration of the liver. Gallbladder: No evidence of gallstones. Spleen: Normal size. Pancreas: Normal size without evidence of mass surrounding inflammation or ductal dilation. Adrenals: Unremarkable Kidneys: Normal renal sizes. No hydronephrosis. Bowel: No evidence of bowel obstruction. Lymph nodes: No retroperitoneal lymphadenopathy. Vasculature: Mild diffuse atherosclerotic calcifications are noted. Peritoneum / Retroperitoneum: Unremarkable Bones: Degenerative changes of the spine. CT/CT Chest AND Abd W/ Contrast IMPRESSION: Coronary artery calcification (CAC) is is present Since prior study, there has been development of increased markings with bronch iectasis and irregular soft tissue nodules in the left lung apex and left upper lobe as described. This may represent post radia tion pneumonitis/fibrosis of the patient received radiation at that site. 9.4 mm pleural-based nodule in the anterior aspect of the right lower lobe enrique cent to the right minor fissure. Reading Location: [id number]
[2024-12-24] MEDS: 0.9 % NaCl (Sterile) Posiflush 10 mL IV (13:00)
== END | disposition home or self-care (01) ==
LOC: CT 12:34
PROVIDERS: PCP Nurse Practitioner Family; Referring Provider Internal Medicine Hematology & Oncology; Visit Provider Internal Medicine Hematology & Oncology
DX: C34.12 Malignant neoplasm of upper lobe, left bronchus or lung (principal)
CPT/HCPCS: 71260; 74160; Q9967; A4216

== ENCOUNTER → 2025-02-10 | Outpatient (CLI) | payer MEDICARE, OTHER, SELFPAY ==
--- NOTE | 2025-02-10 12:30 | MRI_ITS ---
PROCEDURE: BRAIN W/WO CONTRAST 02/10/2025 REASON FOR EXAM: MONITORING FOR BRAIN METASTASES TECHNIQUE: Procedure Code: MRIBRWW Modality: MR Procedure: BRAIN W/WO CONTRAST Multiplanar and multisequence images were obtained. CONTRAST: Clariscan VOLUME: 19 mL intravenous. COMPARISON: Brain MRI of 11/10/2024. FINDINGS: Brain: No intracranial mass or mass effect is seen. Postcontrast images demonstrate no area of abnormal enhancement. Mild bilateral cerebral white matter changes are seen, consistent with chronic ischemic changes of small-vessel disease. Internal auditory canals appear symmetric and within the normal range. No orbital pathology is seen. Diffusion: No focus of diffusion restriction is seen. Ventricles: Consistent with age. Sinuses: Minimal mucosal thickening. Mastoids: Stable appearance of partial opacification of right mastoid air cells. MRI/Brain W/WO Contrast IMPRESSION: No evidence of intracranial metastatic disease. Reading Location: [place] [id number]
== END | disposition home or self-care (01) ==
LOC: OPMRI 12:23
PROVIDERS: PCP Nurse Practitioner Family; Referring Provider Student in an Organized Health Care Education/Training Program; Visit Provider Student in an Organized Health Care Education/Training Program
DX: C34.12 Malignant neoplasm of upper lobe, left bronchus or lung (principal)
CPT/HCPCS: 70553; A9575

== ENCOUNTER 2025-02-22 06:09 | Day surgery (SDC) | payer MEDICARE, OTHER, SELFPAY ==
--- NOTE | 2025-02-18 13:29 | PAT.ANE_ITS ---
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 When Was Last Pacemaker Check QUESTION #4 FULL TEXT: You/Your Family Experience fever (hyperthermia) with Anesthesia Last Oral Intake Last Oral intake: Last Oral Intake NPO since Meds taken in AM with sips of water? Meds patient instructed to take am of surgery PONV PONV - director of student financial services: PONV - director of student financial services Female Yes 02/18/25 09:25 HX of Motion Sickness Yes 02/18/25 09:25 HX of N/V After Surgery No 02/18/25 09:25 Non-Smoker Yes 02/18/25 09:25 Duration of Surgery greater No 02/18/25 09:25 than 60 minutes Number of Risk Factors 3 02/18/25 09:25 PONV Score Moderate Risk 02/18/25 09:25 Height & Weight Height & Weight: Anesthesia: Height & Weight Height 5 ft 4 in 02/01/25 13:40 Respiratory Assessment Respiratory Assessment - director of student financial services: Respiratory Tract Infection Hx - director of student financial services Hx Respiratory Tract Infection No 02/18/25 09:25 STOP Sleep Apnea STOP Sleep Apnea - director of student financial services: STOP Sleep Apnea - director of student financial services Hx Hypertension No 02/18/25 09:25 Hx Sleep Apnea Yes 02/18/25 09:25 CPAP Yes 02/18/25 09:25 BIPAP No 02/18/25 09:25 Do you snore loudly (louder than talking or can be heard Do you often feel tired/ fatigued/ sleepy during daytime? Has anyone observed you stop breathing during sleep? STOP Results Positive 02/18/25 09:25 QUESTION #5 FULL TEXT : Do you snore loudly (louder than talking or can be heard through closed doors)? 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 confused, unrespo /Reproduction History /Reproductive History - director of student financial services: /Reproductive Hx- director of student financial services Hx Now No 02/18/25 09:25 Gestational Age (in weeks): EDC: Hx Hx Para Hx Section SAB No 02/18/25 09:25 PFSH Medical History (Updated 02/18/25 @ 09:35 by Jory Macdonald) Depression Anxiety Alcohol use Back pain Dietary restriction Rectal bleeding Shortness of breath on exertion Fatigue History of lipoma Right upper limb pain Drug induced neutropenia Hypomagnesemia Hypokalemia Diarrhea Encounter for chemotherapy management Encounter for education Wears glasses Wears dentures Post-menopausal Cancer Thyroid disease Diabetes Arthritis Anemia High cholesterol Gastric reflux Former smoker CPAP (continuous positive airway pressure) dependence Leg cramps History of edema History of echocardiogram History of stress test Regional lymph node metastasis present Primary fibromyalgia syndrome Chondromalacia Chronic obstructive lung disease Depression Hyperlipidemia Vitamin D deficiency Localized swelling, mass and lump, unspecified MARTELL (obstructive sleep apnea) Dyspnea Right ankle pain Home Medications ?Medication ?Instructions ?Recorded ?Last Taken ?Type lovastatin 40 mg tablet 40 mg PO QHS hld 11/25/13 History cholecalciferol (vitamin D3) 125 5,000 unit PO DAILY s upplement 06/25/23 05/12/24 History mcg (5,000 unit) capsule levothyroxine 100 mcg tablet 100 mcg PO DAILY thyroid 06/25/23 05/12/24 History metformin 1,000 mg tablet 1,000 mg PO BID dm 06/25/23 05/12/24 History omeprazole 20 mg capsule,delayed 20 mg PO QDAY 5 Unknown History release albuterol sulfate 90 mcg/actuation 2 puff inhalation Q 6H asthma #18 10/11/24 Unknown Rx aerosol inhaler (Ventolin HFA) grams L.acidophil,salivari-Bifido 1 cap PO BID 11/04/24 Unkn own History bifidum-Strep thermoph 175 mg capsule fluticasone fur. 100 mcg-umeclid 1 inh inhalation QHS asthma 02/18/25 Unknown History 62.5 mcg-vilant 25 mcg inhalat.powder (Trelegy Ellipta) Allergy/AdvReac Type Severity Reaction Status Date / Time vaccine adjuvant system, Allergy Rash Verified 02/18/25 09:22 [id number] liposomal (From Shingrix (PF)) varicella-zoster virus Allergy Rash Verified 02/18/25 09:22 glycoprotein E, recombinant (From Shingrix (PF)) Family History Mother Heart disease CVA (cerebral vascular accident) Brain tumor Father Cancer Stomach Heart disease Surgical History History of colonoscopy History of ankle surgery History of cataract extraction Social History Smoking Status: Former smoker quit date: 06/02/16 pack-years: 63 Tobacco: How many years used: 42 Electronic Cigarette Use: not used how long ago did patient quit smokin years second hand exposure: Yes quit status: quit date established alcohol intake: never substance use type: does not use Audit: Pertinent Findings Pertinent Findings EKG Perinent findings: 07/02/2024. Normal sinus rhythm. [address] abnormality. Echo (EF%) pertinent findings: 02/04/2018. EF 65%. Pulmonary artery pressure 24. Recommendation Anesthesia Recommendation Anesthesia recommendation: OPTIMIZED for anesthesia
[2025-02-22] VITALS (9 sets, daily range): BP systolic 100–116; BP diastolic 53–65; PULSE 69–81; RESP 16–18; TEMP 36.2–37.2; O2SAT 92–97; BMI 34.7
--- OUTSIDE RECORDS SUMMARY | 2025-02-22 06:22 | XMS RPT_ITS | CCD ---
Author Organization [facility] Care Team Providers Care Fats And Oils Loader Name Role Phone Torres ORACLE PROGRAMMER, Natalia Candis Unavailable Unavaila ble Torres ORACLE PROGRAMMER, Natalia Candis Unavailable Unavaila ble Torres ORACLE PROGRAMMER, Natalia Candis Unavailable Unavaila ble Torres ORACLE PROGRAMMER, Natalia Candis Unavailable Unavaila ble Aurdey Aparicio Unavailable Unavailable Torre, Natalia N Unavailable James Bell Unavailable Unavailable Yensho ORACLE PROGRAMMER, Corine A Unavailable Unavailab le Yensho ORACLE PROGRAMMER, Corine A Unavailable Unavailab le Torres ORACLE PROGRAMMER, Natalia Candis Unavailable Unavaila ble Yensho ORACLE PROGRAMMER, Corine A Unavailable Unavailab le Elias Neville Unavailable Carmencita Jason Unavailable Unavailable Torre, Natalia N Unavailable Torres ORACLE PROGRAMMER, Natalia Candis Unavailable Unavaila ble Fco Mccarthy MD Primary Care Provider [phone] Dr. Fco Mccarthy Primary Care Provider Dr. Foc Mccarthy Referring Provider Royer HYDROELECTRIC SYSTEMS TECHNICIAN, HYDROELECTRIC SYSTEMS TECHNICIAN-C Angela Attending Provider Dr. Fco Mccarthy Primary Care Provider Dr. Fco Mccarthy Referring Provider Royer RAZO, HYDROELECTRIC SYSTEMS TECHNICIAN-C Angela Attending Provider Dr. Fco Mccarthy Referring Provider Unavailable Dr. Wood Gillespie Attending Provider ANNETTE Mott Primary Care Provider David, HYDROELECTRIC SYSTEMS TECHNICIAN-C Oscar Primary Care Provider David, HYDROELECTRIC SYSTEMS TECHNICIAN-C Oscar Referring Provider Royer HYDROELECTRIC SYSTEMS TECHNICIAN, HYDROELECTRIC SYSTEMS TECHNICIAN-C Angela Attending Provider David WOOD MILL SUPERVISOR, Oscar Primary Care Provider MIRELLA, JAREK Attending Unavailable MIRELLA, JAREK Referring Unavailable DAVID, OSCAR Primary Care Unavailable MIRELLA, JAREK Attending Unavailable DAVID, OSCAR Primary Care Unavailable MIRELLA, JAREK Admitting Unavailable MIRELLA, JAREK Attending Unavailable DAVID, OSCAR Primary Care Unavailable David HYDROELECTRIC SYSTEMS TECHNICIAN-C, Oscar Primary Care Provider David HYDROELECTRIC SYSTEMS TECHNICIAN-C, Oscar Referring Provider Royer HYDROELECTRIC SYSTEMS TECHNICIAN-C, Angela Attending Provider Gaurang MARSH, Dr. German Attending Provider Royer HYDROELECTRIC SYSTEMS TECHNICIAN-CAngela Referring Provider Dr. Nicola Prabhakar MD Attending Provider Dr. Nicolas Barclay DO Attending Provider Dr. Nicolas Barclay DO Referring Provider Dr. Nicola Prabhakar MD Referring Provider Dr. Nicola Prabhakar MD Other Provider Eileen HYDROELECTRIC SYSTEMS TECHNICIAN-C, Leighann Attending Provider Dr. Jovani Puente DO Emergency Provider Beatrice ROB, Dr. Rocha Admit Provider Dr. Aj Barron DO Attending Provider Dr. Rodri Harrington MD Other Provider Joe MARSH, Dr. Dozier Other Provider Dr. Jamie Ortiz MD Other Provider Duran MARSH, Dr. Grover Other Provider Unavailable Gaurang MARSH, Dr. German Other Provider Field MARSH, Dr. Mace Other Provider Adam MARSH, Dr. Aguilar Other Provider Unavailable Carlito MARSH, Dr. Recio Other Provider Deny ROB, Dr. Valenzuela Other Provider Eileen HYDROELECTRIC SYSTEMS TECHNICIAN-C, Leighann Other Provider Beatrice ROB, Dr. Rocha Referring Provider Beatrice ROB, Dr. Rocha Other Provider Eric ROB, Dr. Byrnes Attending Provider Eric ROB, Dr. Byrnes Other Provider Angel MARSH, Dr. Ayala Attending Provider Tomas Swann MD Emergency Provider Betancourt DO, Dr. Dozier Admit Provider Unavail able Betancourt DO, Dr. Dozier Other Provider Unavail able Ochoa MARSH, Dr. Servin Attending Provider Ochoa MARSH, Dr. Servin Other Provider Ochoa MARSH, Dr. Servin Referring Provider Gaurang MARSH, Dr. German Referring Provider David HYDROELECTRIC SYSTEMS TECHNICIAN-C, Oscar Primary Care Provider David HYDROELECTRIC SYSTEMS TECHNICIAN-C, Oscar Referring Provider Eileen HYDROELECTRIC SYSTEMS TECHNICIAN-C, Leighann Attending Provider Tomas Swann MD Emergency Provider Betancourt DO, Dr. Dozier Admit Provider Unavail able Betancourt DO, Dr. Dozier Other Provider Unavail able Ochoa MARSH, Dr. Servin Attending Provider Vanna MARSH, Dr. Petersen Other Provider Ochoa MARSH, Dr. Servin Other Provider Ochoa MARSH, Dr. Servin Referring Provider Vanna MARSH, Dr. Petersen Attending Provider Dr. Nicolas Barclay DO Attending Provider Gaurang MARSH, Dr. German Attending Provider Dr. Nicolas Barclay DO Referring Provider Linton HYDROELECTRIC SYSTEMS TECHNICIAN-C, Angela Attending Provider Eileen HYDROELECTRIC SYSTEMS TECHNICIAN-C, Leighann Referring Provider Gaurang MARSH, Dr. German Referring Provider David HYDROELECTRIC SYSTEMS TECHNICIAN-C, Oscar Attending Provider David HYDROELECTRIC SYSTEMS TECHNICIAN-C, Oscar Primary Care Provider David HYDROELECTRIC SYSTEMS TECHNICIAN-C, Oscar Referring Provider Eileen HYDROELECTRIC SYSTEMS TECHNICIAN-C, Leighann Attending Provider Vanna MARSH, Dr. Petersen Attending Provider [phone] Gaurang MARSH, Dr. German Referring Provider David HYDROELECTRIC SYSTEMS TECHNICIAN-C, Oscar Primary Care Provider David HYDROELECTRIC SYSTEMS TECHNICIAN-C, Oscar Referring Provider Eileen HYDROELECTRIC SYSTEMS TECHNICIAN-C, Leighann Attending Provider David HYDROELECTRIC SYSTEMS TECHNICIAN-C, Oscar Primary Care Provider David HYDROELECTRIC SYSTEMS TECHNICIAN-C, Oscar Referring Provider Eileen HYDROELECTRIC SYSTEMS TECHNICIAN-C, Leighann Attending Provider Dr. Nicolas Barclay DO Attending Provider David HYDROELECTRIC SYSTEMS TECHNICIAN-C, Oscar Primary Care Provider David HYDROELECTRIC SYSTEMS TECHNICIAN-C, Oscar Referring Provider Eileen HYDROELECTRIC SYSTEMS TECHNICIAN-C, Leighann Attending Provider Dr. Maxi Merlos MD Attending Provider Dr. Maxi Merlos MD Referring Provider David HYDROELECTRIC SYSTEMS TECHNICIAN-C, Oscar Primary Care Provider David HYDROELECTRIC SYSTEMS TECHNICIAN-C, Oscar Referring Provider Eileen HYDROELECTRIC SYSTEMS TECHNICIAN-C, Leighann Attending Provider Gaurang MARSH, Dr. German Attending Provider Royer HYDROELECTRIC SYSTEMS TECHNICIAN-C, Angela Attending Provider Deny ROB, Dr. Valenzuela Attending Provider Dr. Nicolas Barclay DO Referring Provider Gaurang MARSH, Dr. German Referring Provider Angel MARSH, Dr. Ayala Attending Provider David HYDROELECTRIC SYSTEMS TECHNICIAN-C, Oscar Primary Care Provider David HYDROELECTRIC SYSTEMS TECHNICIAN-C, Oscar Referring Provider [phone] Eileen HYDROELECTRIC SYSTEMS TECHNICIAN-C, Leighann Attending Provider Vanna MARSH, Dr. Petersen Attending Provider David HYDROELECTRIC SYSTEMS TECHNICIAN-C, Oscar Primary Care Provider David HYDROELECTRIC SYSTEMS TECHNICIAN-C, Oscar Referring Provider [phone] David, Oscar Referring Unavailable David, Oscar Primary Care Unavailable Eileen HYDROELECTRIC SYSTEMS TECHNICIANLeighann Attending Unavailable David, Oscar Referring Unavailable David, Oscar Primary Care Unavailable Angela Linton NP Attending Unavailable Nicolas Barclay Attending Unavailable David, Oscar Referring Unavailable David, Oscar Primary Care Unavailable David, Oscar Primary Care Unavailable Maxi Merlos Attending Unavailable David, Oscar Referring Unavailable David, Oscar Primary Care Unavailable Nicolas Barclay Referring Unavailable Nicolas Barclay Attending Unavailable David, Oscar Primary Care Unavailable Jacoby Betancourt Admitting Unavailable Jacoby Betancourt Consulting Unavailable Jacoby Betancourt Attending Unavailable David, Oscar Primary Care Unavailable Aj Barron Attending Unavailable Aj Barron Admitting Unavailable Rodri Harrington Consulting Unavailable Fitz Reyes Consulting Unavailable Jacoby Diaz Consulting Unavailable Jamie Ortiz Consulting Unavailable Reilly Garzon Consulting Unavailable Maxi Merlos Consulting Unavailable Rodri Parr Consulting Unavailable Jeff Medina Consulting Unavailable Hemal Esteban Consulting Unavailable Nicolas Barclay Consulting Unavailable Eileen HYDROELECTRIC SYSTEMS TECHNICIANLeighann Consulting Unavailable Aj Barron Consulting Unavailable Aj Barron Referring Unavailable Fitz Ryees Attending Unavailable Deny, Nicolas Referring Unavailable David, Oscar Primary Care Unavailable Nicolas Barclay Attending Unavailable David, Oscar Primary Care Unavailable Royer HYDROELECTRIC SYSTEMS TECHNICIAN, Angela Attending Unavailable David, Oscar Referring Unavailable David, Oscar Primary Care Unavailable David, Oscar Referring Unavailable Deny, Nicolas Attending Unavailable David, Oscar Referring Unavailable Nicola Prabhakar Attending Unavailable David, Oscar Primary Care Unavailable Nicolas Barclay Attending Unavailable David, Oscar Referring Unavailable David, Oscar Primary Care Unavailable David, Oscar Referring Unavailable David, Oscar Primary Care Unavailable Nicola Prabhakar Attending Unavailable David, Oscar Referring Unavailable David, Oscar Primary Care Unavailable Maxi Merlos Attending Unavailable David, Oscar Primary Care Unavailable Eileen HYDROELECTRIC SYSTEMS TECHNICIAN, Leighann Attending Unavailable David, Oscar Referring Unavailable David, Oscar Referring Unavailable David, Oscar Primary Care Unavailable Eileen HYDROELECTRIC SYSTEMS TECHNICIAN, Leighann Attending Unavailable Linton HYDROELECTRIC SYSTEMS TECHNICIAN, Angela Referring Unavailable David, Oscar Primary Care Unavailable Linton HYDROELECTRIC SYSTEMS TECHNICIAN, Angela Attending Unavailable David, Oscar Referring Unavailable David, Oscar Primary Care Unavailable Nicola Prabhakar Attending Unavailable Nicolas Barclay Attending Unavailable David, Oscar Primary Care Unavailable Deny, Nicolas Referring Unavailable Deny, Nicolas Referring Unavailable Deny, Nicolas Attending Unavailable David, Oscar Primary Care Unavailable David, Oscar Primary Care Unavailable Royer HYDROELECTRIC SYSTEMS TECHNICIAN, Angela Attending Unavailable David, Oscar Referring Unavailable David, Oscar Primary Care Unavailable Eileen HYDROELECTRIC SYSTEMS TECHNICIAN, Leighann Attending Unavailable David, Oscar Referring Unavailable David, Oscar Referring Unavailable David, Oscar Primary Care Unavailable Maxi Merlos Attending Unavailable David, Oscar Referring Unavailable David, Oscar Primary Care Unavailable Eileen HYDROELECTRIC SYSTEMS TECHNICIAN, Leighann Attending Unavailable Deny, Nicolas Referring Unavailable David, Oscar Primary Care Unavailable Cortes Barclaye Attending Unavailable David, Oscar Referring Unavailable David, Oscar Primary Care Unavailable Eileen HYDROELECTRIC SYSTEMS TECHNICIAN, Leighann Attending Unavailable Maxi Merlos Attending Unavailable Linton HYDROELECTRIC SYSTEMS TECHNICIAN, Angela Referring Unavailable David, Oscar Primary Care Unavailable David, Oscar Referring Unavailable Linton HYDROELECTRIC SYSTEMS TECHNICIAN, Angela Attending Unavailable David, Oscar Primary Care Unavailable David, Oscar Primary Care Unavailable Linton HYDROELECTRIC SYSTEMS TECHNICIAN, Angela Attending Unavailable David, Oscar Referring Unavailable David, Oscar Referring Unavailable David, Oscar Primary Care Unavailable Deny, Nicolas Attending Unavailable David, Oscar Referring Unavailable David, Oscar Primary Care Unavailable Eileen HYDROELECTRIC SYSTEMS TECHNICIAN, Leighann Attending Unavailable Fitz Reyes Attending Unavailable Linton HYDROELECTRIC SYSTEMS TECHNICIAN, Angela Referring Unavailable Linton HYDROELECTRIC SYSTEMS TECHNICIAN, Angela Consulting Unavailable David, Oscar Primary Care Unavailable Deny, Nicolas Attending Unavailable David, Oscar Primary Care Unavailable Deny, Nicolas Referring Unavailable DenyNicolas thornton Attending Unavailable David, Oscar Primary Care Unavailable Deny, Nicolas Referring Unavailable David, Oscar Primary Care Unavailable Fitz Reyes Attending Unavailable Linton HYDROELECTRIC SYSTEMS TECHNICIAN, Angela Referring Unavailable David, Oscar Referring Unavailable David, Oscar Primary Care Unavailable Nicola Prabhakar Attending Unavailable Jamie Ortiz Attending Unavailable Gareth Packer Attending Unavailable Nicola Prabhakar Consulting Unavailable Gareth Packer Consulting Unavailable Nicola Prabhakar Attending Unavailable Ochoa Gareth Referring Unavailable David, Oscar Referring Unavailable David, Oscar Primary Care Unavailable Eileen HYDROELECTRIC SYSTEMS TECHNICIAN, Leighann Attending Unavailable David, Oscar Referring Unavailable David, Oscar Primary Care Unavailable Eileen HYDROELECTRIC SYSTEMS TECHNICIAN, Leighann Attending Unavailable David, Oscar Primary Care Unavailable Deny, Nicolas Referring Unavailable Nicolas Barclay Attending Unavailable David, Oscar Primary Care Unavailable David, Oscar Referring Unavailable Eileen HYDROELECTRIC SYSTEMS TECHNICIAN, Leighann Attending Unavailable David, Oscar Referring Unavailable David, Oscar Primary Care Unavailable Eileen HYDROELECTRIC SYSTEMS TECHNICIAN, Leighann Attending Unavailable David, Oscar Referring Unavailable David, Oscar Primary Care Unavailable Eileen HYDROELECTRIC SYSTEMS TECHNICIAN, Leighann Attending Unavailable Deny, Nicolas Referring Unavailable David, Oscar Primary Care Unavailable Cortes Barclaye Attending Unavailable David, Oscar Referring Unavailable David, Oscar Primary Care Unavailable Deny, Nicolas Attending Unavailable David, Oscar Primary Care Unavailable David, Oscar Attending Unavailable David, Oscar Referring Unavailable Eileen HYDROELECTRIC SYSTEMS TECHNICIAN, Leighann Referring Unavailable Eileen HYDROELECTRIC SYSTEMS TECHNICIAN, Leighann Attending Unavailable David, Oscar Primary Care Unavailable Linton HYDROELECTRIC SYSTEMS TECHNICIAN, Angela Referring Unavailable Linton HYDROELECTRIC SYSTEMS TECHNICIAN, Angela Attending Unavailable David, Oscar Primary Care Unavailable Deny, Nicolas Attending Unavailable Maxi Merlos Referring Unavailable David, Oscar Primary Care Unavailable Nicola Prabhakar Attending Unavailable Nicola Prabhakar Referring Unavailable David, Oscar Primary Care Unavailable David, Oscar Primary Care Unavailable Jacoby Betancourt Admitting Unavailable Jacoby Betancourt Consulting Unavailable Gareth Packer Attending Unavailable Nicola Prabhakar Consulting Unavailable David, Oscar Primary Care Unavailable Aj Barron Attending Unavailable Aj Barron Admitting Unavailable Rodri Harrington Consulting Unavailable Jacoby Diaz Consulting Unavailable Jamie Ortiz Consulting Unavailable Reilly Garzon Consulting Unavailable Maxi Merlos Consulting Unavailable Rodri Parr Consulting Unavailable Jeff Medina Consulting Unavailable Hemal Esteban Consulting Unavailable Nicolas Barclay Consulting Unavailable Eileen HYDROELECTRIC SYSTEMS TECHNICIAN, Leighann Consulting Unavailable Linton HYDROELECTRIC SYSTEMS TECHNICIAN, Angela Referring Unavailable Linton HYDROELECTRIC SYSTEMS TECHNICIAN, Angela Attending Unavailable David, Oscar Primary Care Unavailable Linton HYDROELECTRIC SYSTEMS TECHNICIAN, Angela Referring Unavailable David, Oscar Primary Care Unavailable Linton HYDROELECTRIC SYSTEMS TECHNICIAN, Angela Attending Unavailable Deny, Nicolas Referring Unavailable Deny, Nicolas Attending Unavailable David, Oscar Primary Care Unavailable David, Oscar Primary Care Unavailable Nicola Prabhakar Attending Unavailable Nicola Prabhakar Referring Unavailable Nicola Prabhakar Consulting Unavailable David, Oscar Referring Unavailable David, Oscar Primary Care Unavailable Jamie Ortiz Attending Unavailable David, Oscar Referring Unavailable David, Oscar Primary Care Unavailable Elisus, Humbertoour Attending Unavailable Linton HYDROELECTRIC SYSTEMS TECHNICIAN, Angela Referring Unavailable David, Oscar Primary Care Unavailable Linton HYDROELECTRIC SYSTEMS TECHNICIAN, Angela Attending Unavailable David, Oscar Primary Care Unavailable Linton HYDROELECTRIC SYSTEMS TECHNICIAN, Angela Referring Unavailable Linton HYDROELECTRIC SYSTEMS TECHNICIAN, Angela Attending Unavailable Linton HYDROELECTRIC SYSTEMS TECHNICIAN, Angela Referring Unavailable Linton HYDROELECTRIC SYSTEMS TECHNICIAN, Angela Attending Unavailable David, Oscar Primary Care Unavailable David, Oscar Primary Care Unavailable Isckarus, Humbertoour Attending Unavailable Isckarus, Mansour Referring Unavailable Deny, Nicolas Attending Unavailable David, Oscar Primary Care Unavailable Deny, Nicolas Referring Unavailable David, Oscar Referring Unavailable David, Oscar Primary Care Unavailable Isckarus, Humbertoour Attending Unavailable David, Oscar Referring Unavailable David, Oscar Primary Care Unavailable Nicola Prabhakar Attending Unavailable Allergies Allergy Classification Reported Allergen(s) Allergy Type Date of Onset Reaction(s) Facility (19 sources) ZOSTER VACCINE drug allergy 6 Pulmonary Medicine [facility] Work Phone: (4 sources) Varicella-Zoster Virus Vaccine Live ([employer]ka-[employer]) strain Drug Allergy 5 Rash [facility] Work Phone: (20 sources) Varicella zoster virus glycoprotein E Drug Allergy 2 Rash [facility] (17 sources) vaccine adjuvant system, AS01B liposomal; Translations: [vaccine adjuvant system, AS01B liposomal] Allergy to substance 3 Rash [facility] (1 source) varicella-zoster virus glycoprotein E, recombinant Drug allergy (disorder) 5 [facility] Repository Medications Current Medications Medication Drug Class(es) Dates Sig (Normalized) Sig (Original) acetaminophen 500 mg oral capsule (14 sources) Start: 05-12-2024 take 1 capsule by mouth every six hours as needed for pain Acetaminophen 500 mg capsule Active 500 mg PO EVERY 6 HOURS as needed for pain May 12, 2024 1:00am Start: 04-30-2017 TYLENOL 325 MG TABS ACETAMINOPHEN [id number] Elias Neville [id number] 200 actuat albuterol 0.09 mg/actuat metered dose inhaler (20 sources) beta2-Adrenergic Agonist Start: 03-15-2024 take 2 puff(s) by inhalation every six hours as needed for wheezing albuterol 108 (90 Base) MCG/ACT inhaler Inhale 2 puffs every 6 hours as needed for wheezing or shortness of breath. 03/15/2024 Active Start: 08-06-2021 take 1 puff(s) by in halation every six hours Albuterol Sulfate (Ventolin Hfa) 90 mcg/actuation HFA aerosol inhaler Active 2 PUFF INHALATION EVERY 6 HOURS August 06, 2021 2:11pm Start: 03-01-2019 End: 10-11-2024 Albuterol Sulfate (Ventolin Hfa) 90 mcg/actuation HFA aerosol inhaler Discontinued 2 NMA INHALATION EVERY 6 HOURS 19 04March 15, 2024 8:10am October 11, 2024 11:03am asthma Start: 03-01-2019 End: 03-15-2024 Start: 03-01-2019 End: 12-23-2022 take 1 puff(s) by inhalation every six hours Albuterol Sulfate (Ventolin Hfa) 90 mcg/actuation HFA aerosol inhaler Discontinued 2 PUFF INHALATION EVERY 6 HOURS August 06, 2021 2:11pm December 23, 2022 7:55am Start: 07-25-2017 End: 03-01-2019 Albuterol Sulfate (Ventolin Hfa) 90 mcg/actuation HFA aerosol inhaler Discontinued 2 NMA INHALATION EVERY 6 HOURS July 25, 2017 1:00am March 01, 2019 2:25pm Start: 07-25-2017 End: 03-01-2019 Start: 07-25-2017 End: 03-01-2019 take 1 puff(s) by inhalation every six hours Albuterol Sulfate (Ventolin Hfa) 90 mcg/actuation HFA aerosol inhaler Discontinued 2 PUFF INHALATION EVERY 6 HOURS July 25, 2017 1:00am March 01, 2019 2:25pm Start: 06-09-2015 VENTOLIN HFA 1 08 (90 Base) MCG/ACT AERS One puff every 4-6 hrs as needed for dyspnea ALBUTEROL SULFATE [id number] Natalia Rodrigues Start: 06-09-2015 VENTOLIN HFA 1 08 (90 Base) MCG/ACT AERS One puff every 4-6 hrs as needed for dyspnea ALBUTEROL SULFATE [id number] Natalia Rodrigues Start: 11-25-2013 End: 10-11-2020 Albuterol Sulfate Discontinu ed 8.5 GM PO NEEDED November 25, 2013 8:53pm October 11, 2020 10:47am Start: 11-25-2013 End: 10-11-2020 Albuterol Sulfate 8.5 GM HFA aerosol inhaler Discontinued 8.5 g PO NEEDED as needed for Wheezing November 25, 2013 12:00am October 11, 2020 10:47am Start: 11-25-2013 End: 10-11-2020 Start: 11-11-2013 take 2 puff(s) by in halation every four hours as needed albuterol HFA 90 mcg/actuation inhaler Indications: COPD (chronic obstructive pulmonary disease) (HCC) Inhale 2 Puffs as instructed every 4 hours as needed. 1 Inhaler 5 11/11/2013 Active End: 09-12-2016 ALBUTEROL SULFATE NEBU as ne eded ALBUTEROL SULFATE NEBU [id number] Natalia Rodrigues ALBUTEROL SULFAT E NEBU as needed ALBUTEROL SULFATE NEBU [id number] Rodrigo Cedillo End: 09-12-2016 ALBUTEROL SULFATE NEBU as ne eded ALBUTEROL SULFATE NEBU [id number] Natalia Rodrigues Comment on above: Inhale 2 Puffs as in structed every 4 hours as needed. Ascorbic Acid (6 sources) Vitamin C Ascorbic Acid (VITAMIN C PO) Take by mouth. Active DULoxetine 60 mg delayed release oral capsule (20 sources) Serotonin and Norepinephrine Reuptake Inhibitor Start: take 1 capsule by mouth once daily Duloxetine 60 MG capsule,delayed release(DR/EC) Active 60 mg PO DAILY November 25, 2013 12:00am depression take 1 tablet by mouth once arnaldo y DULOXETINE HCL 60 MG CPEP One tablet by mouth daily DULOXETINE HCL [id number] Rodrigo Cedillo Comment on above: Take 1 capsule by [facility] once daily. Fluticasone-Umeclidin- Vilanter (20 sources) Anticholinergic, Corticosteroid, beta2-Adrenergic Agonist Start: 10-08-2024 Xjgcsucnbur-Sxwwuazjy-Qep anter (Trelegy Ellipta) 100-62.5-25 mcg blister with device Active 1 NMA INHALATION DAILY 3 October 08, 2024 9:01am Chronic obstructive pulmonary disease, unspecified asthma Start: 10-08-2024 Fluticasone-Um eclidin-Vilanter (Trelegy Ellipta) 100-62.5-25 mcg blister with device Active 1 NMA INHALATION DAILY October 08, 2024 9:01am Start: 04-08-2024 take 1 puff(s) by inhalation once daily Trelegy Ellipta 100-62.5-25 MCG/ACT aero matthew powder Inhale 1 puff daily. 04/08/2024 Active Start: 02-04-2024 End: 10-08-2024 Tfhkhpszlin-Pobmvvnfx-Mmxyxw er (Trelegy Ellipta) 100-62.5-25 mcg blister with device Discontinued 1 NMA INHALATION DAILY 3 February 04, 2024 12:32pm October 08, 2024 9:02am Chronic obstructive pulmonary disease, unspecified asthma Start: 02-04-2024 End: 10-08-2024 Gvimwsabchw-Npgzwnxux-Jnviwk er (Trelegy Ellipta) 100-62.5-25 mcg blister with device Discontinued 1 NMA INHALATION DAILY February 04, 2024 12:32pm October 08, 2024 9:02am Start: 02-04-2024 Start: 01-27-2024 End: 02-04-2024 Zzctfwiuhxl-Ehuzdolxk-Retkib er (Trelegy Ellipta) 100-62.5-25 mcg blister with device Discontinued 1 NMA INHALATION DAILY 3 January 27, 2024 11:14am February 04, 2024 12:32pm Chronic obstructive pulmonary disease, unspecified Start: 01-27-2024 End: 02-04-2024 Nlsxdlrpeay-Nbiqixrbt-Yncrpp er (Trelegy Ellipta) 100-62.5-25 mcg blister with device Discontinued 1 NMA INHALATION DAILY January 27, 2024 11:14am February 04, 2024 12:32pm Start: 01-27-2024 End: 02-04-2024 Start: 10-01-2023 End: 01-27-2024 Xnwofskrbri-Yaqevjpta-Yurpct er (Trelegy Ellipta) 100-62.5-25 mcg blister with device Discontinued 1 NMA INHALATION DAILY 3 October 01, 2023 8:49am January 27, 2024 11:14am Chronic obstructive pulmonary disease, unspecified Start: 10-01-2023 End: 01-27-2024 Nlycqnwzdlc-Gliqetnhn-Wknwfv er (Trelegy Ellipta) 100-62.5-25 mcg blister with device Discontinued 1 NMA INHALATION DAILY October 01, 2023 8:49am January 27, 2024 11:14am Start: 10-01-2023 End: 01-27-2024 Start: 10-01-2023 Fluticasone-Um eclidin-Vilanter (Trelegy Ellipta) 100-62.5-25 mcg blister with device Active 1 INH INHALATION DAILY October 01, 2023 8:49am Start: 05-29-2023 End: 10-01-2023 Hezvjhsldei-Wzomguojh-Stqvle er (Trelegy Ellipta) 100-62.5-25 mcg blister with device Discontinued 1 NMA INHALATION DAILY 3 May 29, 2023 10:15am October 01, 2023 8:49am Chronic obstructive pulmonary disease, unspecified Start: 05-29-2023 End: 10-01-2023 Icuvkiljamz-Jlskhwwjk-Ahmogv er (Trelegy Ellipta) 100-62.5-25 mcg blister with device Discontinued 1 NMA INHALATION DAILY May 29, 2023 10:15am October 01, 2023 8:49am Start: 05-29-2023 End: 10-01-2023 Start: 05-29-2023 End: 10-01-2023 Pgigwxuulmq-Tnfmxziid-Mgoeiz er (Trelegy Ellipta) 100-62.5-25 mcg blister with device Discontinued 1 INH INHALATION DAILY May 29, 2023 10:15am October 01, 2023 8:49am Start: 05-29-2023 Fluticasone-Um eclidin-Vilanter (Trelegy Ellipta) 100-62.5-25 mcg blister with device Active 1 INH INHALATION DAILY May 29, 2023 10:15am Start: 12-23-2022 End: 05-29-2023 Jklfmxyjayj-Ketqhmuax-Peqxja er (Trelegy Ellipta) 100-62.5-25 mcg blister with device Discontinued 1 NMA INHALATION DAILY 3 December 23, 2022 7:55am May 29, 2023 10:16am Chronic obstructive pulmonary disease, unspecified Start: 12-23-2022 End: 05-29-2023 Peuylmzxxia-Nkjfyivzu-Wdofuy er (Trelegy Ellipta) 100-62.5-25 mcg blister with device Discontinued 1 NMA INHALATION DAILY December 23, 2022 7:55am May 29, 2023 10:16am Start: 12-23-2022 End: 05-29-2023 Start: 12-23-2022 End: 05-29-2023 Uqxqzjktatx-Spavwkpqw-Hjpywd er (Trelegy Ellipta) 100-62.5-25 mcg blister with device Discontinued 1 INH INHALATION DAILY December 23, 2022 7:55am May 29, 2023 10:16am Start: 12-23-2022 Fluticasone-Um eclidin-Vilanter (Trelegy Ellipta) 100-62.5-25 mcg blister with device Active 1 INH INHALATION DAILY December 23, 2022 7:55am Start: 09-26-2022 End: 12-23-2022 Mjyrqdjhext-Tfiwvmxur-Jegopz er (Trelegy Ellipta) 100-62.5-25 mcg blister with device Discontinued 1 NMA INHALATION DAILY 3 September 26, 2022 12:43pm December 23, 2022 7:55am Chronic obstructive pulmonary disease, unspecified Start: 09-26-2022 End: 12-23-2022 Hufultlvvbi-Sybnpwjvx-Ecvvfi er (Trelegy Ellipta) 100-62.5-25 mcg blister with device Discontinued 1 NMA INHALATION DAILY September 26, 2022 12:43pm December 23, 2022 7:55am Start: 09-26-2022 End: 12-23-2022 Start: 09-26-2022 End: 12-23-2022 Uluxmtxsubf-Digpjzlrv-Zpmggy er (Trelegy Ellipta) 100-62.5-25 mcg blister with device Discontinued 1 INH INHALATION DAILY September 26, 2022 12:43pm December 23, 2022 7:55am Start: 05-22-2022 End: 09-26-2022 Jmrdwotjhgp-Bjxvyahqc-Hbzakh er (Trelegy Ellipta) 100-62.5-25 mcg blister with device Discontinued 1 NMA INHALATION DAILY 3 May 22, 2022 10:47am September 26, 2022 12:43pm Chronic obstructive pulmonary disease, unspecified Start: 05-22-2022 End: 09-26-2022 Ydxaafkmwah-Ghcuirqoy-Grdstz er (Trelegy Ellipta) 100-62.5-25 mcg blister with device Discontinued 1 NMA INHALATION DAILY May 22, 2022 10:47am September 26, 2022 12:43pm Start: 05-22-2022 End: 09-26-2022 Start: 05-22-2022 End: 09-26-2022 Vbcrrtipjxr-Jpmafsmnd-Eybqmn er (Trelegy Ellipta) 100-62.5-25 mcg blister with device Discontinued 1 INH INHALATION DAILY May 22, 2022 10:47am September 26, 2022 12:43pm Start: 05-22-2022 Fluticasone-Um eclidin-Vilanter (Trelegy Ellipta) 100-62.5-25 mcg blister with device Active 1 INH INHALATION DAILY May 22, 2022 10:47am Start: 12-10-2021 End: 05-22-2022 Nehcuheeslf-Gcibrbgdu-Tabzkn er (Trelegy Ellipta) 100-62.5-25 mcg blister with device Discontinued 1 NMA INHALATION DAILY 3 December 10, 2021 9:13am May 22, 2022 10:48am Chronic obstructive pulmonary disease, unspecified Start: 12-10-2021 End: 05-22-2022 Dpczmmyurvc-Psaudjvhr-Bwbovg er (Trelegy Ellipta) 100-62.5-25 mcg blister with device Discontinued 1 NMA INHALATION DAILY December 10, 2021 9:13am May 22, 2022 10:48am Start: 12-10-2021 End: 05-22-2022 Start: 12-10-2021 End: 05-22-2022 Fkvqezaydsn-Iwqrrvnwy-Xsgcix er (Trelegy Ellipta) 100-62.5-25 mcg blister with device Discontinued 1 INH INHALATION DAILY December 10, 2021 9:13am May 22, 2022 10:48am Start: 12-10-2021 Fluticasone-Um eclidin-Vilanter (Trelegy Ellipta) 100-62.5-25 mcg blister with device Active 1 INH INHALATION DAILY December 10, 2021 9:13am Start: 09-28-2021 End: 12-10-2021 Gfgpsiycirz-Cfpphzbsf-Iguzae er (Trelegy Ellipta) 100-62.5-25 mcg blister with device Discontinued 1 NMA INHALATION DAILY 3 September 28, 2021 10:20am December 10, 2021 9:13am Chronic obstructive pulmonary disease, unspecified Start: 09-28-2021 End: 12-10-2021 Rcjpgiyjves-Jzqopyubc-Imcdwg er (Trelegy Ellipta) 100-62.5-25 mcg blister with device Discontinued 1 NMA INHALATION DAILY September 28, 2021 10:20am December 10, 2021 9:13am Start: 09-28-2021 End: 12-10-2021 Start: 09-28-2021 End: 12-10-2021 Iyiyaomxqtv-Rcmgjikza-Doqzfb er (Trelegy Ellipta) 100-62.5-25 mcg blister with device Discontinued 1 INH INHALATION DAILY September 28, 2021 10:20am December 10, 2021 9:13am Start: 09-28-2021 Fluticasone-Um eclidin-Vilanter (Trelegy Ellipta) 100-62.5-25 mcg blister with device Active 1 INH INHALATION DAILY September 28, 2021 10:20am Start: 03-27-2021 End: 09-28-2021 Egjxuskncsp-Cnvoefqcx-Fkjpky er (Trelegy Ellipta) 100-62.5-25 mcg blister with device Discontinued 1 NMA INHALATION DAILY March 27, 2021 8:13am September 28, 2021 10:21am Chronic obstructive pulmonary disease, unspecified Start: 03-27-2021 End: 09-28-2021 Xvxjywmydxv-Fodnxvief-Zkhzbq er (Trelegy Ellipta) 100-62.5-25 mcg blister with device Discontinued 1 NMA INHALATION DAILY March 27, 2021 8:13am September 28, 2021 10:21am Start: 03-27-2021 End: 09-28-2021 Start: 03-27-2021 End: 09-28-2021 Usstqmpibjw-Kivlwafgv-Kluzmk er (Trelegy Ellipta) 100-62.5-25 mcg blister with device Discontinued 1 INH INHALATION DAILY March 27, 2021 8:13am September 28, 2021 10:21am Start: 03-15-2021 End: 03-27-2021 Ldhsztkzsuy-Xlayvzhfd-Toftaq er (Trelegy Ellipta) 100-62.5-25 mcg blister with device Discontinued 1 NMA INHALATION DAILY March 15, 2021 10:44am March 27, 2021 8:13am Chronic obstructive pulmonary disease, unspecified Start: 03-15-2021 End: 03-27-2021 Uaaustyuzxz-Wtvexwztq-Wsuvpz er (Trelegy Ellipta) 100-62.5-25 mcg blister with device Discontinued 1 NMA INHALATION DAILY March 15, 2021 10:44am March 27, 2021 8:13am Start: 03-15-2021 End: 03-27-2021 Start: 03-15-2021 End: 03-27-2021 Znnyahldzwt-Jcwqyqxkq-Cnbblo er (Trelegy Ellipta) 100-62.5-25 mcg blister with device Discontinued 1 INH INHALATION DAILY March 15, 2021 10:44am March 27, 2021 8:13am Start: 10-12-2020 End: 03-15-2021 Aeiiikdzkhp-Rgrcvptmz-Dkfgyr er (Trelegy Ellipta) 100-62.5-25 mcg blister with device Discontinued 1 NMA INHALATION DAILY October 12, 2020 10:53am March 15, 2021 10:44am Chronic obstructive pulmonary disease, unspecified Start: 10-12-2020 End: 03-15-2021 Xsboxopyoll-Pjzpxytiy-Qqstzs er (Trelegy Ellipta) 100-62.5-25 mcg blister with device Discontinued 1 NMA INHALATION DAILY October 12, 2020 10:53am March 15, 2021 10:44am Start: 10-12-2020 End: 03-15-2021 Start: 10-12-2020 End: 03-15-2021 Dhzzojhezxb-Qnihqpyph-Csjlbi er (Trelegy Ellipta) 100-62.5-25 mcg blister with device Discontinued 1 INH INHALATION DAILY October 12, 2020 10:53am March 15, 2021 10:44am Start: 07-05-2020 End: 10-12-2020 Gedqbcoxtfs-Petrmadua-Ozksxr er (Trelegy Ellipta) 100-62.5-25 mcg blister with device Discontinued 1 NMA INHALATION DAILY July 05, 2020 9:39am October 12, 2020 10:53am Chronic obstructive pulmonary disease, unspecified Start: 07-05-2020 End: 10-12-2020 Yagypjhtmfs-Ujrkxyaet-Mwontr er (Trelegy Ellipta) 100-62.5-25 mcg blister with device Discontinued 1 NMA INHALATION DAILY July 05, 2020 9:39am October 12, 2020 10:53am Start: 07-05-2020 End: 10-12-2020 Start: 07-05-2020 End: 10-12-2020 Cyrgplypgcb-Bntrmflvh-Iwujqf er (Trelegy Ellipta) 100-62.5-25 mcg blister with device Discontinued 1 INH INHALATION DAILY July 05, 2020 9:39am October 12, 2020 10:53am Start: 07-05-2020 End: 07-05-2020 Srlafwdllvz-Voxuofkls-Mplrsc er (Trelegy Ellipta) 100-62.5-25 mcg blister with device Discontinued 1 NMA INHALATION DAILY July 05, 2020 7:56am July 05, 2020 9:40am Chronic obstructive pulmonary disease, unspecified Start: 07-05-2020 End: 07-05-2020 Mfmugulenhy-Hxcbwwpzu-Reykiv er (Trelegy Ellipta) 100-62.5-25 mcg blister with device Discontinued 1 NMA INHALATION DAILY July 05, 2020 7:56am July 05, 2020 9:40am Start: 07-05-2020 End: 07-05-2020 Start: 07-05-2020 End: 07-05-2020 Hbrfspklwhm-Ewpeacisn-Eojgdp er (Trelegy Ellipta) 100-62.5-25 mcg blister with device Discontinued 1 INH INHALATION DAILY July 05, 2020 7:56am July 05, 2020 9:40am Start: 03-13-2020 End: 07-05-2020 Abfmmzndjjs-Faqlzmubi-Zvxcul er (Trelegy Ellipta) 100-62.5-25 mcg blister with device Discontinued 1 NMA INHALATION DAILY 60 5 March 13, 2020 10:10am July 05, 2020 7:56am Chronic obstructive pulmonary disease, unspecified Start: 03-13-2020 End: 07-05-2020 Zsbljijkawb-Tkphiygog-Cthfjr er (Trelegy Ellipta) 100-62.5-25 mcg blister with device Discontinued 1 NMA INHALATION DAILY 60 March 13, 2020 10:10am July 05, 2020 7:56am Start: 03-13-2020 End: 07-05-2020 Start: 03-13-2020 End: 07-05-2020 Ghmyhffinwb-Cryrctqeh-Dhoqxm er (Trelegy Ellipta) 100-62.5-25 mcg blister with device Discontinued 1 INH INHALATION DAILY 60 March 13, 2020 10:10am July 05, 2020 7:56am Start: 09-07-2019 End: 03-13-2020 Pcbqffrsise-Vvpjsjkbb-Kedeos er (Trelegy Ellipta) 100-62.5-25 mcg blister with device Discontinued 1 NMA INHALATION DAILY 60 5 September 07, 2019 7:33am March 13, 2020 10:11am Chronic obstructive pulmonary disease, unspecified Start: 09-07-2019 End: 03-13-2020 Wepwgaymvqy-Fgrwvdecm-Pjahom er (Trelegy Ellipta) 100-62.5-25 mcg blister with device Discontinued 1 NMA INHALATION DAILY 60 September 07, 2019 7:33am March 13, 2020 10:11am Start: 09-07-2019 End: 03-13-2020 Start: 09-07-2019 End: 03-13-2020 Bbttgqdbykn-Fjpcrryyv-Xetpci er (Trelegy Ellipta) 100-62.5-25 mcg blister with device Discontinued 1 INH INHALATION DAILY 60 September 07, 2019 7:33am March 13, 2020 10:11am Start: 05-10-2019 End: 09-07-2019 Cpxvsjygxhs-Yydulmjwe-Mzxabq er (Trelegy Ellipta) 100-62.5-25 mcg blister with device Discontinued 1 INH INHALATION DAILY May 10, 2019 8:41am September 07, 2019 7:34am Start: 05-10-2019 End: 09-07-2019 Dghvrixhcqo-Mjmsiwnae-Wmkvzo er (Trelegy Ellipta) 100-62.5-25 mcg blister with device Discontinued 1 NMA INHALATION DAILY May 10, 2019 1:00am September 07, 2019 7:34am Start: 05-10-2019 End: 09-07-2019 Start: 05-10-2019 End: 09-07-2019 Xquqlyqetmo-Lijaoecxz-Jexido er (Trelegy Ellipta) 100-62.5-25 mcg blister with device Discontinued 1 INH INHALATION DAILY May 10, 2019 1:00am September 07, 2019 7:34am Start: 02-08-2019 End: 02-18-2019 Qtwfjaenffd-Mimhejycb-Ewnqni er (Trelegy Ellipta) 100-62.5-25 mcg blister with device Discontinued 1 INH INHALATION DAILY 60 February 08, 2019 10:14am February 18, 2019 1:21pm Start: 02-08-2019 End: 02-18-2019 Jdzjerpxzmg-Emvcrydsq-Kqjtrn er (Trelegy Ellipta) 100-62.5-25 mcg blister with device Discontinued 1 NMA INHALATION DAILY 60 6 February 08, 2019 12:00am February 18, 2019 1:21pm Chronic obstructive pulmonary disease, unspecified Start: 02-08-2019 End: 02-18-2019 Xilklrtrcuw-Sjcqllvqo-Mgmljc er (Trelegy Ellipta) 100-62.5-25 mcg blister with device Discontinued 1 NMA INHALATION DAILY 60 February 08, 2019 12:00am February 18, 2019 1:21pm Start: 02-08-2019 End: 02-18-2019 Start: 02-08-2019 End: 02-18-2019 Xfwkqmicefl-Rxkiqsmxh-Ldvado er (Trelegy Ellipta) 100-62.5-25 mcg blister with device Discontinued 1 INH INHALATION DAILY 60 February 08, 2019 12:00am February 18, 2019 1:21pm L.Acidoph,Saliva-B.Bif-S.The rm 175 mg capsule (9 sources) Start: 11-04-2024 take 1 capsule by mouth twice daily L.Acidoph,Saliva-B.Bif-S.Therm 175 mg capsule Active 1 NMA PO TWICE A DAY November 04, 2024 10:37am Probiotic bqjl-zrl-vfalokf lidocaine 25 mg/ml / priloca ine 25 mg/ml topical cream (12 sources) Anti arrh ythm ic, Amid e Loca l Anes thet ic Start: 05-17-2024 Lidocaine-Prilocaine 2.5-2.5 % cream Active 1 NMA TOPICAL ONCE as needed for port access 30 30 2 May 17, 2024 1:00am Small cell lung cancer, left upper lobe Malignant neoplasm of upper lobe, left bronchus or lung Start: 05-17-2024 lovastatin 40 mg oral tablet (20 sources) HMG-CoA Reductase Inhibitor Start: 11-25-2013 take 1 tablet by mouth once daily Lovastatin 40 MG tablet Active 40 mg PO DAILY November 25, 2013 12:00am hld Comment on above: Take 1 tablet by radha th daily with dinner. metFORMIN hydrochloride 1000 mg oral tablet (20 sources) Biguanide Start: 06-25-2023 metFORMIN (Glucophage) 1000 MG tablet 1,000 mg daily (with breakfast). 06/25/2023 Active Start: 06-25-2023 take 1 tablet by radha th twice daily Metformin 1,000 mg tablet Active 1000 mg PO TWICE A DAY June 25, 2023 1:00am dm Start: 06-25-2023 take 1 mg by mouth twice daily Metformin Active MG PO TWICE A DAY June 25, 2023 1:00am omeprazole 20 mg delayed release oral capsule (11 sources) Proton Pump Inhibitor Start: 08-30-2024 take 1 capsule by mouth once daily Omeprazole 20 mg capsule,delayed release(DR/EC) Active 20 mg PO daily August 30, 2024 12:00am polyethylene glycol 3350 999003 mg / potassium chloride 2970 mg / sodium bicarbonate 6740 mg / sodium chloride 5860 mg / sodium sulfate 84405 mg powder for oral solution (1 source) Osmotic Laxative Start: 02-02-2025 take 4000 mL by mouth once Peg 3350-Electrolytes 236-22.74-6.74 -5.86 gram recon soln Active 4000 mL PO ONCE 4000 0 February 02, 2025 12:00am until fecal effluent is clear; do not exceed a total volume of 4000 mL VITAMIN D PO (6 sources) VITAMIN D PO Lee e by mouth. Active (2 sources) Start: 07-05-2024 Start: 05-18-2024 Completed/Discontinued Medications Medication Drug Class(es) Dates Sig (Normalized) Sig (Original) acetaminophen 325 mg / HYDROcodone bitartrate 5 mg oral tablet (20 sources) Opioid Agonist Start: 01-20-2017 End: 05-22-2020 Hydrocodone-Acetami nophen 1 TABLET tablet Discontinued 1 {tbl} PO EVERY 6 HOURS NEEDED as needed for Pain January 20, 2017 12:00am May 22, 2020 2:55pm Start: 01-20-2017 End: 05-22-2020 Start: 01-20-2017 End: 05-22-2020 take 1 tablet by mouth every six hours as needed Hydrocodone-Acetaminophen Discontinued 1 TABLET PO EVERY 6 HOURS NEEDED January 20, 2017 12:00am May 22, 2020 2:55pm alendronic acid 70 mg oral tablet (18 sources) Bisphosphonate Start: 10-11-2020 End: 06-25-2023 take 1 tablet by mouth every week Alendronate (Fosamax) 70 mg tablet Discontinued 70 mg PO EVERY WEEK October 11, 2020 12:00am June 25, 2023 8:36am calcium ascorbate 500 mg oral tablet (12 sources) Start: 12-05-2023 End: 10-06-2024 take 1 tablet by mouth once daily Ascorbate Calcium (Vitamin C) 500 mg tablet Discontinued 500 mg PO DAILY December 05, 2023 12:00am October 06, 2024 11:51am supplement cholecalciferol 0.125 mg oral capsule (20 sources) Vitamin D Start: 10-11-2020 End: 06-25-2023 take 1 capsule by mouth two times weekly Cholecalciferol (Vitamin D3) 125 mcg (5,000 unit) capsule Discontinued 5000 U PO .Twice a week October 11, 2020 10:47am June 25, 2023 8:40am Start: 10-26-2019 End: 10-11-2020 take 1 capsule by mouth every week Cholecalciferol (Vitamin D3) 125 mcg (5,000 unit) capsule Discontinued 5000 U PO EVERY WEEK October 26, 2019 2:12pm October 11, 2020 10:48am Start: 02-08-2019 End: 06-25-2023 take 1 capsule by mouth once daily Cholecalciferol (Vitamin D3) 125 mcg (5,000 unit) capsule Active 5000 U PO DAILY June 25, 2023 8:37am supplement Start: 04-30-2017 VITAMIN D3 100 0 UNIT CAPS CHOLECALCIFEROL [id number] Elias Neville Start: 09-22-2014 take 1 capsule by [facility] every week cholecalciferol, Vitamin D3, (VITAMIN D3) 50,000 unit cap capsule Indications: Vitamin D deficiency Take 1 capsule by mouth once each week. 12 capsule 3 09/22/2014 Active Comment on above: Take 1 capsule by [facility] once each week. CPAP (4 sources) Start: 03-23-2014 CPAP Indications: Obstructive sleep apnea Initiate CPAP @ 12 cm of water with humidification. Mask (per patient preference) optional chin strap (if indicated) , filters, tubing, humidifier and lifetime supplies. Dx 327.23. 1 Device 0 03/23/2014 Active Comment on above: Initiate CPAP @ 12 c m of water with humidification. Mask (per patient preference) optional chin strap (if indicated) , filters, tubing, humidifier and lifetime supplies. Dx 327.23. docusate sodium 50 mg / sennosides, nursing home 8.6 mg oral tablet (12 sources) Start: 07-05-2024 End: 11-04-2024 Sennosides-Docusate Sodium (Stimulant Laxative Plus) 8.6-50 mg Tablet Discontinued 2 {tbl} PO TWICE A DAY 0 0 July 05, 2024 1:00am November 04, 2024 10:38am Start: 07-05-2024 esomeprazole 20 mg / naproxen 500 mg delayed release oral tablet (20 sources) Proton Pump Inhibitor, Nonsteroidal Anti-inflammatory Drug Start: 01-31-2017 End: 04-30-2017 take 1 tablet by mouth twice daily VIMOVO 500-20 MG TBEC One tablet by mouth twice daily NAPROXEN-ESOMEPRAZOLE [id number] Elias Neville Start: 01-31-2017 take 1 tablet by radha th twice daily VIMOVO 500-20 MG TBEC One tablet by mout h twice daily NAPROXEN-ESOMEPRAZOLE [id number] Audrey Aparicio Start: 01-20-2017 End: 2018 Naproxen-Esomeprazole 1 EACH tablet,IR,delayed rel,biphasic Discontinued 1 NMA PO TWICE A DAY January 20, 2017 12:00am 2018 9:33am Start: 01-20-2017 End: 2018 Start: 01-20-2017 End: 2018 Naproxen-Esomeprazole Discon tinued 1 EACH PO TWICE A DAY January 20, 2017 12:00am 2018 9:33am Fluticasone Furoate-Vilanterol (18 sources) Corticosteroid, beta2-Adrenergic Agonist Start: 02-18-2019 End: 05-10-2019 Fluticasone Furoate-Vilanterol (Breo Ellipta) 200-25 mcg/dose blister with device Discontinued 1 INH INHALATION daily 60 February 18, 2019 1:21pm May 10, 2019 8:40am after inhalation, rinse mouth with water and spit out; do not swallow Start: 02-18-2019 End: 05-10-2019 Fluticasone Furoate-Vilanter ol (Breo Ellipta) 200-25 mcg/dose blister with device Discontinued 1 NMA INHALATION daily 60 February 18, 2019 12:00am May 10, 2019 8:40am after inhalation, rinse mouth with water and spit out; do not swallow Start: 02-18-2019 End: 05-10-2019 Fluticasone Furoate-Vilanter ol (Breo Ellipta) 200-25 mcg/dose blister with device Discontinued 1 NMA INHALATION daily 60 February 18, 2019 12:00am May 10, 2019 8:40am after inhalation, rinse mouth with water and spit out; do not swallow Start: 02-18-2019 End: 05-10-2019 Start: 02-18-2019 End: 05-10-2019 Fluticasone Furoate-Vilanter ol (Breo Ellipta) 200-25 mcg/dose blister with device Discontinued 1 INH INHALATION daily 60 February 18, 2019 12:00am May 10, 2019 8:40am after inhalation, rinse mouth with water and spit out; do not swallow hydroCHLOROthiazide 25 mg oral tablet (20 sources) Thiazide Diuretic Start: 05-10-2015 End: 09-12-2016 take 1 tablet by mouth once daily hydrochlorothiazide (HYDRODIURIL, ESIDRIX) 25 mg tablet Take 1 tablet by mouth once daily. 30 tablet 2 05/10/2015 Active Comment on above: Take 1 tablet by radha once daily. BettyeSaliva-B.Bif-S .Therm 175 mg Capsule (11 sources) Start: 07-05-2024 End: 11-04-2024 take 1 capsule by mouth twice daily LFloriAcidindra,Saliva-B.Bif- S.Therm 175 mg Capsule Discontinued 1 NMA PO TWICE A DAY 0 July 05, 2024 1:00am November 04, 2024 10:38am Probiotic zivf-dje-dsiyckn Start: 07-05-2024 End: 11-04-2024 take 1 capsule by mouth twice daily L.Acidindra,Saliva-B.Bif-S.Therm 175 mg Ca psule Discontinued 1 NMA PO TWICE A DAY 0 July 05, 2024 1:00am November 04, 2024 10:38am Probiotic ysaz-twi-rkzuhbg Start: 07-05-2024 take 1 capsule by mouth twice daily Livia.Ame,Saliva-B.Bif-S.Therm 175 mg Ca psule Active 1 NMA PO TWICE A DAY 0 July 05, 2024 1:00am Probiotic kwab-dqk-ttytwul lactulose 667 mg/ml oral solution (12 sources) Osmotic Laxative Start: 07-05-2024 End: 07-06-2024 Lactulose 10 gram/15 mL solution Discontinued 15 mL PO 3 TIMES DAILY NEEDED as needed for constipation 3000 30 0 July 05, 2024 1:00am July 06, 2024 10:17am Goal 1 BM per day Start: 07-05-2024 End: 07-06-2024 Magic Mouth Wash (Bmx) 180 mL suspension (11 sources) Start: 05-18-2024 End: 08-30-2024 Magic Mouth Wash (Bmx) 180 m L suspension Discontinued 15 mL PO .qid as needed for pain 180 5 May 18, 2024 1:00am August 30, 2024 4:15pm diphenhydramine 12.5 mg/5 mL oral liquid 60 mL; aluminum-mag hydroxide-simethicone 400 mg-400 mg-40 mg/5 mL oral susp 60 mL; Lidocaine Viscous 2 % mucosal solution 60 mL; Per 180 mL Start: 05-18-2024 End: 08-30-2024 Magic Mouth Wash (Bmx) 180 m L suspension Discontinued 15 mL PO .qid as needed for pain 180 May 18, 2024 1:00am August 30, 2024 4:15pm diphenhydramine 12.5 mg/5 mL oral liquid 60 mL; aluminum-mag hydroxide-simethicone 400 mg-400 mg-40 mg/5 mL oral susp 60 mL; Lidocaine Viscous 2 % mucosal solution 60 mL; Per 180 mL methylPREDNISolone acetate 40 mg/ml injectable suspension (1 source) Corticosteroid Start: 11-15-2020 End: 11-15-2020 Depo-Medrol (methylprednisolone acetate) 40 mg/mL suspension for injection Discontinued 40 MG INTRAARTIC ONCE 1 November 15, 2020 11:23am November 15, 2020 11:42am naproxen sodium 220 mg oral capsule (14 sources) Nonsteroidal Anti-inflammatory Drug Start: 06-25-2023 End: 05-12-2024 take 1 capsule by mouth once as needed for pain Naproxen Sodium (Aleve) 220 mg capsule Discontinued 220 mg PO ONCE as needed for pain June 25, 2023 1:00am May 12, 2024 3:11pm On Hold: Duplicate Order Start: 06-25-2023 End: 05-12-2024 24 hr nicotine 0.292 mg/hr transdermal system (4 sources) Cholinergic Nicotinic Agonist Start: 05-04-2015 nicotine (NICODERM) 7 mg/24 hr Apply 1 Patch as directed every 24 hours. 30 Patch 1 05/04/2015 Active Comment on above: Apply 1 Patch as dir ected every 24 hours. nystatin 106215 unt/ml oral suspension (20 sources) Polyene Antifungal Start: 06-01-2024 End: 08-30-2024 take 1 mL by mouth every six hours Nystatin 100,000 unit/mL suspension Discontinued 4 mL PO EVERY 6 HOURS 473 7 0 June 01, 2024 1:00am August 30, 2024 4:15pm swish and swallow Start: 06-01-2024 Start: 04-03-2021 End: 12-23-2022 Nystatin 100,000 unit/mL makenzie pension Discontinued 5 mL MUCOUS MEM THREE TIMES A DAY 250 1 April 03, 2021 12:00am December 23, 2022 7:36am swish and swallow 5 cc three times per day for 10 days Start: 04-03-2021 End: 12-23-2022 Start: 04-03-2021 End: 12-23-2022 Nystatin Discontinued 5 ML M UCOUS MEM THREE TIMES A DAY 250 April 03, 2021 12:00am December 23, 2022 7:36am swish and swallow 5 cc three times per day for 10 days ondansetron 8 mg disintegrating oral tablet (12 sources) Serotonin-3 Receptor Antagonist Start: 05-17-2024 End: 10-06-2024 take 1 tablet by mouth every eight hours as needed for nausea and vomiting Ondansetron 8 mg tablet,disintegrating Discontinued 8 mg PO Q8H as needed for nausea and vomiting 30 May 17, 2024 1:00am October 06, 2024 11:52am Small cell lung cancer, left upper lobe Malignant neoplasm of upper lobe, left bronchus or lung microencapsulated potassium chloride 10 meq extended release oral tablet (20 sources) Start: 07-26-2024 End: 10-06-2024 take 1 tablet by mouth once daily Potassium Chloride 10 mEq tablet,ER particles/crystals Discontinued 10 meq PO daily 20 July 26, 2024 1:00am October 06, 2024 11:52am Hypomagnesemia Hypomagnesemia Start: 07-20-2024 End: 07-23-2024 take 1 tablet by mouth three times daily Potassium Chloride 10 mEq tablet extended release Discontinued 10 meq PO THREE TIMES A DAY 9 3 July 20, 2024 1:00am July 22, 2024 1:00am July 23, 2024 1:11am Hypokalemia Hypokalemia Start: 06-28-2024 End: 07-02-2024 take 1 tablet by mouth once daily Potassium Chloride 20 mEq tablet,ER particles/crystals Discontinued 20 meq PO DAILY 3 June 28, 2024 1:00am July 02, 2024 10:38pm Hypokalemia Hypokalemia prochlorperazine 10 mg oral tablet (12 sources) Phenothiazine Start: 05-17-2024 End: 10-06-2024 take 1 tablet by mouth every six hours as needed for nausea and vomiting Prochlorperazine Maleate 10 mg tablet Discontinued 10 mg PO EVERY 6 HOURS as needed for nausea and vomiting 30 2 May 17, 2024 1:00am October 06, 2024 11:53am Chemotherapy-induced nausea and vomiting Nausea with vomiting, unspecified Adverse effect of antineoplastic and immunosuppressive drugs, initial encounter 1000 ml sodium chloride 9 mg/ml injection (2 sources) Start: 04-26-2024 End: 04-26-2024 take 100 mL intravenously every hour as needed, then take 20 mL intravenously every hour as needed 5-250 mL/hr, IntraVENous, PRN, if patient receiving piggyback infusions and maintenance fluids are not ordered OR KVO fluids to protect IV site / prevent frequent line interruptions/ long duration, Starting on Fri04/26/24 at 0754, Preprocedure, For piggyback infusion, administer at same rate as piggyback for a total of 25 mL. Enter 25 mL into dose field and piggyback rate into rate field of order. If piggyback is infusing at a rate less than 100 mL/hr, enter 25 mL into dose field and 100 mL/hr into rate field of order. For KVO fluids, enter rate of 20 mL/hr or less into rate field of order. sulfamethoxazole 800 mg / trimethoprim 160 mg oral tablet (12 sources) Dihydrofolate Reductase Inhibitor Antibacterial, Sulfonamide Antimicrobial Start: 06-01-2024 End: 07-02-2024 Sulfamethoxazole-Trime thoprim (Bactrim Ds) 800-160 mg tablet Discontinued 1 {tbl} PO TWICE A DAY 10 5 0 June 01, 2024 1:00am July 02, 2024 10:39pm Start: 06-01-2024 End: 07-02-2024 levothyroxine sodium 0.075 mg oral tablet (20 sources) l-Thyroxine Start: 06-25-2023 End: 05-12-2024 Levothyroxine 75 mcg tablet Discontinued 88 ug PO DAILY 36 30 0 June 25, 2023 8:37am May 12, 2024 3:11pm On Hold: Duplicate Order Start: 06-25-2023 take 1 tablet by radha th once daily Levothyroxine 100 mcg tablet Active 100 ug PO DAILY June 25, 2023 1:00am thyroid Start: 06-25-2023 take 1 ug by mouth once daily Levothyroxine Active MCG PO DAILY June 25, 2023 1:00am Start: 2018 End: 06-25-2023 take 1 tablet by mouth once daily Levothyroxine 75 mcg tablet Discontinued 75 ug PO DAILY 30 30 0 October 26, 2019 2:12pm June 25, 2023 8:40am Start: 2018 End: 10-26-2019 Levothyroxine 75 mcg tablet Discontinued PO 30 30 0 2018 1:00am October 26, 2019 2:13pm Start: 2018 End: 05-12-2024 Start: 11-25-2013 End: 2018 take 1 tablet by mouth once daily Levothyroxine 88 MCG tablet Discontinued 88 ug PO DAILY November 25, 2013 12:00am 2018 9:32am take 1 tablet by radha th once daily SYNTHROID 100 MCG TABS One tablet by mouth daily LEVOTHYROXINE SODIUM [id number] Rodrigo Cedillo take 1 tablet by radha th once daily SYNTHROID 100 MCG TABS One tablet by mouth daily LEVOTHYROXINE SODIUM [id number] Rodrigo Cedillo Comment on above: Take 1 tablet by radha th once daily. tiotropium 0.018 mg inhalant powder (20 sources) Anticholinergic Start: 01-10-20 16 take 1 capsule by inhalation once daily at bedtime SPIRIVA HANDIHALER 18 MCG CAPS inh one cap once daily at bedtime TIOTROPIUM BROMIDE MONOHYDRATE [id number] Natalia Bhakta Ravi Start: 10-31-2014 take 1 capsule by in halation once daily tiotropium (SPIRIVA WITH HANDIHALER) 18 mcg inhalation capsule Indications: COPD (chronic obstructive pulmonary disease) ([facility]) Inhale 1 capsule as instructed once daily. Use with handihaler. 90 capsule 3 10/31/2014 Active Start: 11-25-2013 End: 02-08-2019 take 1 capsule by mouth once daily Tiotropium [place] 18 MCG capsule, w/inhalation device Discontinued 18 ug PO DAILY November 25, 2013 12:00am February 08, 2019 10:16am SPIRIVA HANDIHAL ER 18 MCG CAPS once daily TIOTROPIUM BROMIDE MONOHYDRATE [id number] Rodrigo Cedillo Comment on above: Inhale 1 capsule as instructed once daily. Use with handihaler. triamcinolone acetonide 1 mg/ml topical cream (20 sources) Corticosteroid Start: 06-25-2023 End: 05-05-2024 Triamcinolone Acetonide 0.1 % cream Discontinued 1 NMA TOPICAL TWICE A DAY June 25, 2023 1:00am May 05, 2024 2:30pm On Hold: Order Completed Start: 06-25-2023 End: 05-05-2024 Start: 11-15-2020 End: 11-15-2020 Kenalog (triamcinolone aceto nide) 40 mg/mL suspension for injection Discontinued 40 MG INTRAARTIC ONCE 1 November 15, 2020 11:23am November 15, 2020 11:40am Umeclidinium (18 sources) Anticholinergic Start: 02-18-2019 End: 05-10-2019 take 62.5 ug by inhalation once daily Umeclidinium (Incruse Ellipta) 62.5 mcg/actuation blister with device Discontinued 1 INH INHALATION daily February 18, 2019 1:22pm May 10, 2019 8:41am Start: 02-18-2019 End: 05-10-2019 take 62.5 ug by inhalation once daily Umeclidinium (Incruse Ellipta) 62.5 mcg/actuation blister with device Discontinued 1 NMA INHALATION daily 29 08February 18, 2019 12:00am May 10, 2019 8:41am Start: 02-18-2019 End: 05-10-2019 take 62.5 ug by inhalation once daily Umeclidinium (Incruse Ellipta) 62.5 mcg/actuation blister with device Discontinued 1 NMA INHALATION daily February 18, 2019 12:00am May 10, 2019 8:41am Start: 02-18-2019 End: 05-10-2019 Start: 02-18-2019 End: 05-10-2019 take 62.5 ug by inhalation once daily Umeclidinium (Incruse Ellipta) 62.5 mcg/actuation blister with device Discontinued 1 INH INHALATION daily February 18, 2019 12:00am May 10, 2019 8:41am Problems Active Problems Problem Classification Problem Date Documented Da te Episodic/Chronic Adjustment disorders (4 sources) Adjustment disorder with depressed mood; Translations: [Adjustment disorder with depressed mood] Onset: 05-06-2008 05-04-2015 Chronic Cancer of bronchus; lung (20 sources) Small cell carcinoma of lung; Translations: [Malignant neoplasm of upper lobe, left bronchus or lung] Onset: 02-10-2025 05-04-2024 Chronic Cancer; other and unspecified primary (18 sources) History of lipoma; Translations: [Personal history of other benign neoplasm] 08-18-2024 Episodic Cardiac dysrhythmias (1 source) Unspecified atrial fibrillation; Translations: [Unspecified atrial fibrillation] Onset: 03-18-2024 Chronic Chronic obstructive pulmonary disease and bronchiectasis (20 sources) Chronic obstructive lung disease; Translations: [Chronic obstructive pulmonary disease, unspecified] Onset: 07-17-2009 05-28-2021 Chronic Deficiency and other anemia (20 sources) Anemia; Translations: [Anemia, unspecified] 07-13-2024 Episodic Diseases of white blood cells (20 sources) Febrile neutropenia; Translations: [Neutropenia, unspecified] Onset: 06-23-2024 06-09-2024 Chronic Disorders of lipid metabolism (20 sources) Mixed hyperlipidemia; Translations: [Mixed hyperlipidemia] Onset: 05-06-2008 05-06-2008 Chronic Gastrointestinal hemorrhage (5 sources) Hematochezia; Translations: [Melena] Onset: 02-01-2025 02-01-2025 Episodic Joint disorders and dislocations; trauma-related (4 sources) Chondromalacia of patella; Translations: [Chondromalacia patellae, unspecified knee] Onset: 08-20-2011 08-20-2011 Chronic Lymphadenitis (20 sources) Mediastinal lymphadenopathy; Translations: [Localized enlarged lymph nodes] Onset: 04-16-2024 04-16-2024 Episodic Maintenance chemotherapy; radiotherapy (20 sources) Patient encounter status; Translations: [Encounter for antineoplastic chemotherapy] Onset: 06-14-2024 05-17-2024 Chronic Mood disorders (18 sources) Depressive disorder; Translations: [Depression] 2018 Chronic Mycoses (18 sources) Candidiasis of mouth; Translations: [Candidal stomatitis] 04-03-2021 Episodic Nutritional deficiencies (20 sources) Vitamin D deficiency; Translations: [Vitamin D deficiency, unspecified] 06-22-2014 Chronic Osteoarthritis (20 sources) Arthritis of knee; Translations: [Unilateral primary osteoarthritis, left knee] 12-13-2020 Chronic Other bone disease and musculoskeletal deformities (18 sources) Chondromalacia; Translations: [Chondromalacia, unspecified site] 07-25-2017 Episodic Other connective tissue disease (4 sources) Fibromyalgia; Translations: [Fibromyalgia] 12-31-2012 Episodic Other connective tissue disease (18 sources) Pain in left lower limb; Translations: [Pain in left leg] 10-18-2020 Episodic Other connective tissue disease (18 sources) Primary fibromyalgia syndrome; Translations: [Fibromyalgia] 07-25-2017 Episodic Other connective tissue disease (19 sources) Pain in right arm; Translations: [Pain in right arm] 08-18-2024 Episodic Other gastrointestinal disorders (14 sources) Dysphagia; Translations: [Dysphagia, unspecified] 07-02-2024 Episodic Other gastrointestinal disorders (12 sources) Diarrhea; Translations: [Diarrhea, unspecified] 06-14-2024 Episodic Other lower respiratory disease (20 sources) Dyspnea; Translations: [Dyspnea, unspecified] Onset: 10-09-2016 10-09-2016 Episodic Other lower respiratory disease (18 sources) Dyspnea on exertion; Translations: [Shortness of breath] 10-11-2020 Episodic Other lower respiratory disease (20 sources) Lung mass; Translations: [Other nonspecific abnormal finding of lung field] Onset: 04-16-2024 04-16-2024 Episodic Other nervous system disorders (14 sources) Metabolic encephalopathy; Translations: [Metabolic encephalopathy] 07-02-2024 Chronic Other nervous system disorders (1 source) Metabolic encephalopathy; Translations: [Metabolic encephalopathy] Onset: 07-16-2024 Chronic Other non-traumatic joint disorders (20 sources) Ankle pain; Translations: [Pain in right ankle and joints of right foot] Onset: 01-27-2017 02-14-2017 Episodic Other non-traumatic joint disorders (20 sources) Pain in unspecified knee; Translations: [Pain in joint, lower leg] Onset: 08-20-2011 08-20-2011 Episodic Other non-traumatic joint disorders (18 sources) Joint pain; Translations: [Pain in unspecified joint] 10-18-2020 Episodic Other nutritional; endocrine; and metabolic disorders (4 sources) Body mass index 30+ - obesity; Translations: [Body mass index (BMI) 34.0-34.9, adult] 10-11-2020 Chronic Other nutritional; endocrine; and metabolic disorders (4 sources) Body mass index (BMI) 34.0-34.9, adult; Translations: [Body Mass Index 34.0-34.9, adult] Chronic Other nutritional; endocrine; and metabolic disorders (14 sources) Obesity; Translations: [Obesity, unspecified] 06-25-2023 Chronic Other nutritional; endocrine; and metabolic disorders (2 sources) Obesity, unspecified; Translations: [Obesity, unspecified] 06-25-2023 Chronic Other nutritional; endocrine; and metabolic disorders (14 sources) Obese class I; Translations: [Class 1 obesity] 07-02-2024 Chronic Other nutritional; endocrine; and metabolic disorders (20 sources) Hypomagnesemia; Translations: [Hypomagnesemia] 07-26-2024 Chronic Other nutritional; endocrine; and metabolic disorders (2 sources) Hypomagnesemia; Translations: [Hypomagnesemia] Onset: 07-16-2024 Chronic Other skin disorders (17 sources) Localized swelling, mass and lump, unspecified 10-11-2020 Episodic Residual codes; unclassified (7 sources) Obstructive sleep apnea (adult) (pediatric); Translations: [Obstructive sleep apnea (adult)(pediatric)] Onset: 08-13-2024 Chronic Residual codes; unclassified (14 sources) Confusional state; Translations: [Disorientation, unspecified] 07-02-2024 Episodic Screening and history of mental health and substance abuse codes (2 sources) Tobacco use and exposure - finding; Translations: [Personal history of nicotine dependence] Episodic Secondary malignancies (20 sources) Regional lymph node metastasis present ; Translations: [Secondary and unspecified malignant neoplasm of lymph node, unspecified] 05-05-2024 Chronic Secondary malignancies (2 sources) Secondary and unspecified malignant neoplasm of lymph node, unspecified; Translations: [Secondary and unspecified malignant neoplasm of lymph node, unspecified] Onset: 01-25-2025 Chronic Substance-related disorders (20 sources) Tobacco user; Translations: [Nicotine dependence, unspecified, uncomplicated] Onset: 05-06-2008 05-06-2008 Chronic Comment on above: Greater than 30-pack -year smoking history quit in 2017 Thyroid disorders (20 sources) Acquired hypothyroidism; Translations: [Hypothyroidism, unspecified] Onset: 05-06-2008 05-04-2015 Chronic Unclassified (20 sources) Obstructive sleep apnea syndrome; Translations: [Obstructive sleep apnea (adult) (pediatric)] Onset: 10-09-2016 10-09-2016 Chronic Unclassified (2 sources) New Patient; Translations: [New Patient] Onset: 04-16-2024 Unclassified (7 sources) Pain of right upper extremity Unclassified (7 sources) History of lipoma Unclassified (7 sources) M79.601 - Pain in right arm,Z86.018 - Personal history of other benign neoplasm Unclassified (1 source) Follow-up for large bowel ileus/chronic constipation Unclassified (1 source) Obesity, class 1; Translations: [Obesity, class 1] Onset: 07-16-2024 Past or Other Problems Problem Classification Problem Date Documented Da te Episodic/Chronic Administrative/social admission (1 source) Counseling, unspecified; Translations: [Counseling, unspecified] Onset: 05-17-2024 Episodic Cancer; other and unspecified primary (1 source) Personal history of other benign neoplasm; Translations: [Personal history of other benign neoplasm] Onset: 08-25-2024 Episodic Deficiency and other anemia (1 source) Anemia, unspecified; Translations: [Anemia, unspecified] Onset: 08-18-2024 Episodic E Codes: Adverse effects of medical drugs (16 sources) Adverse reaction to drug; Translations: [Adverse effect of unspecified drugs, medicaments and biological substances, initial encounter] Onset: 05-17-2024 07-02-2024 Episodic Fever of unknown origin (1 source) Fever presenting with conditions classified elsewhere; Translations: [Fever presenting with conditions classified elsewhere] Onset: 06-23-2024 Episodic Fluid and electrolyte disorders (20 sources) Hypokalemia; Translations: [Hypokalemia] Onset: 07-16-2024 06-28-2024 Episodic Fracture of lower limb (20 sources) Other fracture of upper and lower end of right fibula, initial encounter for closed fracture; Translations: [Nondisplaced fracture of lateral malleolus of right fibula, initial encounter for closed fracture] Onset: 01-27-2017 02-14-2017 Episodic Malaise and fatigue (12 sources) Fatigue; Translations: [Other fatigue] Onset: 10-06-2024 10-06-2024 Episodic Nausea and vomiting (16 sources) Nausea; Translations: [Nausea] Onset: 05-17-2024 07-02-2024 Episodic Other aftercare (1 source) Encounter for adjustment and management of vascular access device; Translations: [Encounter for adjustment and management of vascular access device] Onset: 06-14-2024 Episodic Other connective tissue disease (19 sources) Mass of body structure; Translations: [Localized swelling, mass and lump, unspecified] Onset: 10-02-2015 10-02-2015 Episodic Other connective tissue disease (1 source) Pain in right arm; Translations: [Pain in right arm] Onset: 08-18-2024 Episodic Other gastrointestinal disorders (1 source) Dysphagia, unspecified; Translations: [Dysphagia, unspecified] Onset: 07-16-2024 Episodic Other gastrointestinal disorders (1 source) Diarrhea, unspecified; Translations: [Diarrhea, unspecified] Onset: 06-14-2024 Episodic Other lower respiratory disease (3 sources) Other nonspecific abnormal finding of lung field; Translations: [Other nonspecific abnormal finding of lung field] Onset: 04-19-2024 Episodic Other lower respiratory disease (1 source) Other forms of dyspnea; Translations: [Other forms of dyspnea] Onset: 02-26-2024 Episodic Other screening for suspected conditions (not mental disorders or infectious disease) (20 sources) Patient encounter status; Translations: [Encounter for screening for malignant neoplasm of respiratory organs] Onset: 10-20-2024 05-17-2024 Episodic Residual codes; unclassified (4 sources) Family history of diabetes mellitus; Translations: [Family history of diabetes mellitus] Onset: 05-06-2008 05-06-2008 Episodic Residual codes; unclassified (4 sources) Family history of ischemic heart disease and other diseases of the circulatory system; Translations: [Family history of other cardiovascular diseases] Onset: 05-06-2008 05-06-2008 Episodic Septicemia (except in labor) (15 sources) Sepsis; Translations: [Sepsis, unspecified organism] Onset: 06-23-2024 06-09-2024 Episodic Spondylosis; intervertebral disc disorders; other back problems (4 sources) Backache; Translations: [Dorsalgia, unspecified] Onset: 03-18-2013 03-18-2013 Episodic Substance-related disorders (15 sources) Other psychoactive substance use, unspecified, uncomplicated; Translations: [Failed prior treatment for drug use] Onset: 07-16-2024 07-02-2024 Episodic Urinary tract infections (16 sources) Acute cystitis; Translations: [Acute cystitis without hematuria] Onset: 07-16-2024 07-02-2024 Episodic Results Test Name Value Interpretation Reference Range Facility MR/PAT.ANEon 02-18-2025 MR/PAT.ANE Normal [facility] Radiation Oncology Visiton 0 02-15-2025 Radiation Oncology Visit Normal [facility] Brain W/WO Contraston 2024 Brain W/WO Contrast Normal [facility] Surgery Visit Reporton 02-01 Surgery Visit Report Normal [facility] Absolute lymphocyte countOrd ered By: Maxi Merlos on 01-26-2025 Lymphocytes Auto (Unsp spec) [#/Vol] 1.07 10*3/uL 0.83-4.51 [facility] Absolute neutrophil countOrd ered By: Maxi Merlos on 01-26-2025 Neutrophils (Bld) [#/Vol] 4.2 10*3/uL 2.0-7.7 [facility] Anion gap in Serum or Plasma Ordered By: Maxi Merlos on 01-26-2025 Anion gap [Moles/Vol] 12 mmol/L 5-15 [facility] Automated lymphocyte count a s percentage of total leukocytesOrdered By: Mxai Merlos on 01-26-2025 Lymphocytes/100 WBC Auto (Unsp spec) 17.1 % Low 19-41 [facility] BUN/creatinine ratioOrdered By: Maxi Merlos on 01-26-2025 Urea nitrogen/Creatinine [Mass ratio] 20.5 mg/mg High 10-20 [facility] Basophil percentageOrdered B y: Maxi Merlos on 01-26-2025 Basophils/100 WBC (Bld) 0.5 % 0-1 [facility] Bilirubin, totalOrdered By: Maxi Merlos on 01-26-2025 Bilirubin [Mass/Vol] 0.21 mg/dL 0.00-1.30 [facility] CBC W/Diff, Automatedon 01-01 Absolute Lymph 1.07 X10 3/uL Normal 0.83-4.51 [facility] Comment on above: Performed By: #### L 100.0100, L500.4050 ####[facility] [address] [place], [address] Absolute Neut 4.2 X10 3/uL Normal 2.0-7.7 [facility] Comment on above: Performed By: #### L 100.0100, L500.4050 ####[facility] [address] [place], [address] Basophils/100 WBC (Bld) 0.5 % Normal 0-1 [facility] Comment on above: Performed By: #### L 100.0100, L500.4050 ####[facility] [address] [place], [address] Eosinophils/100 WBC (Bld) 2.7 % Normal 0-5 [facility] Comment on above: Performed By: #### L 100.0100, L500.4050 ####[facility] [address] [place], [address] Erythrocyte distribution width (RBC) [Ratio] 13.2 % Normal 11.6-14.6 [facility] Comment on above: Performed By: #### L 100.0100, L500.4050 ####[facility] [address] [place], [address] Hematocrit (Bld) [Volume fraction] 33.9 % Low 37-47 [facility] Comment on above: Performed By: #### L 100.0100, L500.4050 ####[facility] [address] [place], [address] Hemoglobin (Bld) [Mass/Vol] 11.0 g/dL Low 12.0-15.0 [facility] Comment on above: Performed By: #### L 100.0100, L500.4050 ####[facility] [address] [place], [address] IG% 0.300 Normal 0.0-0.9 [facility] Comment on above: Result Comment: IG% - Immature Granulocytes (promyelocytes, myelocytes andmetamyelocytes) > 1% indicates that a LEFT SHIFT is Present. Performed By: #### L 100.0100, L500.4050 ####[facility] [address] [place], [address] Lymphocytes/100 WBC (Bld) 17.1 % Low 19-41 [facility] Comment on above: Performed By: #### L 100.0100, L500.4050 ####[facility] [address] [place], [address] MCH (RBC) [Entitic mass] 30.6 pg Normal 27.0-32.0 [facility] Comment on above: Performed By: #### L 100.0100, L500.4050 ####[facility] [address] [place], [address] MCHC (RBC) [Mass/Vol] 32.4 g/dL Normal 32-36 [facility] Comment on above: Performed By: #### L 100.0100, L500.4050 ####[facility] [address] [place], [address] MCV (RBC) [Entitic vol] 94.2 fL Normal 81-99 [facility] Comment on above: Performed By: #### L 100.0100, L500.4050 ####[facility] [address] [place], [address] Monocytes/100 WBC (Bld) 12.1 % High 0-10 [facility] Comment on above: Performed By: #### L 100.0100, L500.4050 ####[facility] [address] [place], [address] Neutrophils/100 WBC (Bld) 67.3 % Normal 47-70 [facility] Comment on above: Performed By: #### L 100.0100, L500.4050 ####[facility] [address] [place], [address] Nucleated RBC (Bld) [#/Vol] 0 10*3/uL Normal 0-5 [facility] Comment on above: Performed By: #### L 100.0100, L500.4050 ####[facility] [address] [place], [address] Platelet mean volume (Bld) [Entitic vol] 9.7 fL Normal 6.2-12.0 [facility] Comment on above: Performed By: #### L 100.0100, L500.4050 ####[facility] [address] [place], [address] Platelets (Bld) [#/Vol] 239 10*3/uL Normal 150-450 [facility] Comment on above: Performed By: #### L 100.0100, L500.4050 ####[facility] [address] [place], [address] RBC (Bld) [#/Vol] 3.60 10*6/uL Low 4.2-5.4 [facility] Comment on above: Performed By: #### L 100.0100, L500.4050 ####[facility] [address] [place], [address] RDW SD 45.9 fl High 35.1-43.9 [facility] Comment on above: Performed By: #### L 100.0100, L500.4050 ####[facility] [address] [place], [address] WBC (Bld) [#/Vol] 6.3 10*3/uL Normal 4.4-11.0 [facility] Comment on above: Performed By: #### L 100.0100, L500.4050 ####[facility] [address] [place], [address] Carbon dioxide, total [Moles /volume] in Central venous bloodOrdered By: Maxi Merlos on 01-26-2025 CO2 [Moles/Vol] 25.1 mmol/L 21.0-32.0 [facility] Chloride assayOrdered By: Maurice Merlos on 01-26-2025 Chloride [Moles/Vol] 105 mmol/L 98-108 [facility] Comprehensive Metabolic Prof ilon 01-26-2025 Albumin [Mass/Vol] 4.0 g/dL Normal 3.4-4.8 [facility] Comment on above: Performed By: #### L 100.0100, L500.4050 ####[facility] [address] [place], [address] Albumin/Globulin [Mass ratio] 1.5 {ratio} Normal 0.9-2.4 [facility] Comment on above: Performed By: #### L 100.0100, L500.4050 ####[facility] [address] [place], [address] ALK PHOS 79 U/L Normal 35-104 [facility] Comment on above: Performed By: #### L 100.0100, L500.4050 ####[facility] [address] [place], [address] ALT [Catalytic activity/Vol] 19 U/L Normal <=34 [facility] Comment on above: Performed By: #### L 100.0100, L500.4050 ####[facility] [address] [place], [address] AST [Catalytic activity/Vol] 22 U/L Normal <=31 [facility] Comment on above: Performed By: #### L 100.0100, L500.4050 ####[facility] [address] [place], [address] Bilirubin [Mass/Vol] 0.21 mg/dL Normal 0.00-1.30 [facility] Comment on above: Performed By: #### L 100.0100, L500.4050 ####[facility] [address] [place], [address] BUN/CRE 20.5 RATIO High 10-20 [facility] Comment on above: Performed By: #### L 100.0100, L500.4050 ####[facility] [address] [place], [address] Calcium [Mass/Vol] 9.8 mg/dL Normal 7.6-11.0 [facility] Comment on above: Performed By: #### L 100.0100, L500.4050 ####[facility] [address] [place], [address] Chloride [Moles/Vol] 105 mmol/L Normal 98-108 [facility] Comment on above: Performed By: #### L 100.0100, L500.4050 ####[facility] [address] [place], [address] CO2 [Moles/Vol] 25.1 mmol/L Normal 21.0-32.0 [facility] Comment on above: Performed By: #### L 100.0100, L500.4050 ####[facility] [address] [place], [address] Creatinine [Mass/Vol] 0.87 mg/dL Normal 0.70-1.20 [facility] Comment on above: Performed By: #### L 100.0100, L500.4050 ####[facility] [address] [place], [address] ECRCL 67.56 ml/min Normal 50-250 [facility] Comment on above: Performed By: #### L 100.0100, L500.4050 ####[facility] [address] [place], [address] GAP 12 Normal 5-15 [facility] Comment on above: Performed By: #### L 100.0100, L500.4050 ####[facility] [address] [place], [address] GFR/1.73 sq M.predicted among non-blacks MDRD (S/P/Bld) [Vol rate/Area] 72 mL/min/{1.73_m2} Normal >60 [facility] Comment on above: Result Comment: mL/m in/1.73m2 CKD-EPI Creatinine Equation (2020) Performed By: #### L 100.0100, L500.4050 ####[facility] [address] [place], [address] Globulin (S) [Mass/Vol] 2.7 g/dL Normal 2.2-4.2 [facility] Comment on above: Performed By: #### L 100.0100, L500.4050 ####[facility] [address] [place], [address] Glucose [Mass/Vol] 127 mg/dL High 70-99 [facility] Comment on above: Performed By: #### L 100.0100, L500.4050 ####[facility] [address] [place], [address] Potassium [Moles/Vol] 4.2 mmol/L Normal 3.3-5.1 [facility] Comment on above: Performed By: #### L 100.0100, L500.4050 ####[facility] [address] [place], [address] Sodium [Moles/Vol] 142 mmol/L Normal 133-145 [facility] Comment on above: Performed By: #### L 100.0100, L500.4050 ####[facility] [address] [place], [address] T PROT 6.7 g/dL Normal 5.9-8.4 [facility] Comment on above: Performed By: #### L 100.0100, L500.4050 ####[facility] [address] [place], [address] Urea nitrogen [Mass/Vol] 18 mg/dL Normal 4-19 [facility] Comment on above: Performed By: #### L 100.0100, L500.4050 ####[facility] [address] [place], [address] Eosinophil percentageOrdered By: Maxi Merlos on 01-26-2025 Eosinophils/100 WBC (Bld) 2.7 % 0-5 [facility] Erythrocyte distribution wid th ratioOrdered By: Maxi Merlos on 01-26-2025 Erythrocyte distribution width (RBC) [Ratio] 13.2 % 11.6-14.6 [facility] Erythrocyte distribution wid th standard deviationOrdered By: Maxi Merlos on 01-26-2025 Erythrocyte distribution width (RBC) [Ratio] 45.9 fl High 35.1-43.9 [facility] Glomerular filtration rate ( GFR) estimation/1.73 sq m using serum, plasma, or whole bOrdered By: Maxi Merlos on 01-26-2025 GFR/1.73 sq M.predicted among non-blacks MDRD (S/P/Bld) [Vol rate/Area] 72 mL/min/{1.73_m2} >60 [facility] Comment on above: mL/min/1.73m2 CKD-EP I Creatinine Equation (2020) Hematocrit Auto (Bld) [Volum e fraction]Ordered By: Maxi Merlos on 01-26-2025 Hematocrit (Bld) [Volume fraction] 33.9 % Low 37-47 [facility] Hemoglobin measurementOrdere d By: Maxi Merlos on 01-26-2025 Hemoglobin (Bld) [Mass/Vol] 11.0 g/dL Low 12.0-15.0 [facility] Immature granulocytes/100 WB C Auto (Bld)Ordered By: Maxi Merlos on 01-26-2025 Immature granulocytes/100 WBC (Bld) 0.300 % 0.0-0.9 [facility] Comment on above: IG% - Immature Granu locytes (promyelocytes, myelocytes and metamyelocytes) > 1% indicates that a LEFT SHIFT is Present. Laboratory - Chemistry and C hemistry - challengeOrdered By: Maxi Merlos on 01-26-2025 AST [Catalytic activity/Vol] 22 U/L <32 [facility] MCV (mean corpuscular volume ) determinationOrdered By: Maxi Merlos on 01-26-2025 MCV (RBC) [Entitic vol] 94.2 fL 81-99 [facility] Mean corpuscular hemoglobin (MCH) determinationOrdered By: Maxi Merlos on 01-26-2025 MCH (RBC) [Entitic mass] 30.6 pg 27.0-32.0 [facility] Mean corpuscular hemoglobin concentration (MCHC) determinationOrdered By: Maxi Merlos on 01-26-2025 MCHC (RBC) [Mass/Vol] 32.4 g/dL 32-36 [facility] Mean platelet volume determi nationOrdered By: Maxi Merlos on 01-26-2025 Platelet mean volume (Bld) [Entitic vol] 9.7 fL 6.2-12.0 [facility] Monocyte percentageOrdered B y: Maxi Merlos on 01-26-2025 Monocytes/100 WBC (Bld) 12.1 % High 0-10 [facility] Neutrophil percentageOrdered By: Maxi Merlos on 01-26-2025 Neutrophils/100 WBC (Bld) 67.3 % 47-70 [facility] Nucleated red blood cell per centageOrdered By: Maxi Merlos on 01-26-2025 Nucleated RBC/100 WBC (Bld) [Ratio] 0 % 0-5 [facility] Oncology Visit Reporton 01-01 Oncology Visit Report Normal [facility] Platelet countOrdered By: Maurice Merlos on 01-26-2025 Platelets (Bld) [#/Vol] 239 10*3/uL 150-450 [facility] Potassium measurement (mass/ volume)Ordered By: Maxi Merlos on 01-26-2025 Potassium (Unsp spec) [Mass/Vol] 4.2 mmol/L 3.3-5.1 [facility] RBC Auto (Bld) [#/Vol]Ordere d By: Maxi Merlos on 01-26-2025 RBC (Bld) [#/Vol] 3.60 10*6/uL Low 4.2-5.4 [facility] Serum creatinine measurement (mass/volume)Ordered By: Maxi Merlos on 01-26-2025 Creatinine [Mass/Vol] 0.87 mg/dL 0.70-1.20 [facility] Serum globulin measurementOr dered By: Maxi Merlos on 01-26-2025 Globulin (S) [Mass/Vol] 2.7 g/dL 2.2-4.2 [facility] Serum glucose measurement (m ass/volume)Ordered By: Maxi Merlos on 01-26-2025 Glucose [Mass/Vol] 127 mg/dL High 70-99 [facility] Serum or plasma alanine goodrich otransferase (ALT) measurementOrdered By: Maxi Merlos on 01-26-2025 ALT [Catalytic activity/Vol] 19 U/L <35 [facility] Serum or plasma albumin chacorta urement (mass/volume)Ordered By: Maxi Merlos on 01-26-2025 Albumin [Mass/Vol] 4.0 g/dL 3.4-4.8 [facility] Serum or plasma albumin/glob ulin mass ratioOrdered By: Maxi Merlos on 01-26-2025 Albumin/Globulin [Mass ratio] 1.5 {ratio} 0.9-2.4 [facility] Serum or plasma alkaline sofiya sphatase measurementOrdered By: Maxi Merlos on 01-26-2025 ALP [Catalytic activity/Vol] 79 U/L 35-104 [facility] Serum or plasma calcium chacorta urement (mass/volume)Ordered By: Maxi Merlos on 01-26-2025 Calcium [Mass/Vol] 9.8 mg/dL 7.6-11.0 [facility] Serum or plasma urea nitroge n measurement (mass/volume)Ordered By: Maxi Merlos on 01-26-2025 Urea nitrogen [Mass/Vol] 18 mg/dL 4-19 [facility] Sodium levelOrdered By: Humberto colby Gaurang on 01-26-2025 Sodium [Moles/Vol] 142 mmol/L 133-145 [facility] Total proteinOrdered By: Vernon case Gaurang on 01-26-2025 Protein [Mass/Vol] 6.7 g/dL 5.9-8.4 [facility] White blood cell (WBC) count Ordered By: Maxi Gaurang on 01-26-2025 WBC (Bld) [#/Vol] 6.3 10*3/uL 4.4-11.0 [facility] Absolute lymphocyte countOrd ered By: Maxi Gaurang on 12-29-2024 Lymphocytes Auto (Unsp spec) [#/Vol] 0.97 10*3/uL 0.83-4.51 [facility] Absolute neutrophil countOrd ered By: Maxi Gaurang on 12-29-2024 Neutrophils (Bld) [#/Vol] 5.2 10*3/uL 2.0-7.7 [facility] Anion gap in Serum or Plasma Ordered By: Maxi Gaurang on 12-29-2024 Anion gap [Moles/Vol] 12 mmol/L 5-15 [facility] Automated lymphocyte count a s percentage of total leukocytesOrdered By: Maxi Gaurang on 12-29-2024 Lymphocytes/100 WBC Auto (Unsp spec) 13.8 % Low 19-41 [facility] BUN/creatinine ratioOrdered By: Maxi Gaurang on 12-29-2024 Urea nitrogen/Creatinine [Mass ratio] 21.2 mg/mg High 10-20 [facility] Basophil percentageOrdered B y: Maxi Gaurang on 12-29-2024 Basophils/100 WBC (Bld) 0.3 % 0-1 [facility] Bilirubin, totalOrdered By: Maxi Gaurang on 12-29-2024 Bilirubin [Mass/Vol] 0.24 mg/dL 0.00-1.30 [facility] CBC W/Diff, Automatedon 12-02 Absolute Lymph 0.97 X10 3/uL Normal 0.83-4.51 [facility] Comment on above: Performed By: #### L 500.4050, L100.0100 ####[facility] [address] [place], [address] Absolute Neut 5.2 X10 3/uL Normal 2.0-7.7 [facility] Comment on above: Performed By: #### L 500.4050, L100.0100 ####[facility] [address] [place], [address] Basophils/100 WBC (Bld) 0.3 % Normal 0-1 [facility] Comment on above: Performed By: #### L 500.4050, L100.0100 ####[facility] [address] [place], [address] Eosinophils/100 WBC (Bld) 2.6 % Normal 0-5 [facility] Comment on above: Performed By: #### L 500.4050, L100.0100 ####[facility] [address] [place], [address] Erythrocyte distribution width (RBC) [Ratio] 13.4 % Normal 11.6-14.6 [facility] Comment on above: Performed By: #### L 500.4050, L100.0100 ####[facility] [address] [place], [address] Hematocrit (Bld) [Volume fraction] 33.4 % Low 37-47 [facility] Comment on above: Performed By: #### L 500.4050, L100.0100 ####[facility] [address] [place], [address] Hemoglobin (Bld) [Mass/Vol] 11.0 g/dL Low 12.0-15.0 [facility] Comment on above: Performed By: #### L 500.4050, L100.0100 ####[facility] [address] [place], [address] IG% 0.400 Normal 0.0-0.9 [facility] Comment on above: Result Comment: IG% - Immature Granulocytes (promyelocytes, myelocytes andmetamyelocytes) > 1% indicates that a LEFT SHIFT is Present. Performed By: #### L 500.4050, L100.0100 ####[facility] [address] [place], [address] Lymphocytes/100 WBC (Bld) 13.8 % Low 19-41 [facility] Comment on above: Performed By: #### L 500.4050, L100.0100 ####[facility] [address] [place], [address] MCH (RBC) [Entitic mass] 31.2 pg Normal 27.0-32.0 [facility] Comment on above: Performed By: #### L 500.4050, L100.0100 ####[facility] [address] [place], [address] MCHC (RBC) [Mass/Vol] 32.9 g/dL Normal 32-36 [facility] Comment on above: Performed By: #### L 500.4050, L100.0100 ####[facility] [address] [place], [address] MCV (RBC) [Entitic vol] 94.6 fL Normal 81-99 [facility] Comment on above: Performed By: #### L 500.4050, L100.0100 ####[facility] [address] [place], [address] Monocytes/100 WBC (Bld) 8.8 % Normal 0-10 [facility] Comment on above: Performed By: #### L 500.4050, L100.0100 ####[facility] [address] [place], [address] Neutrophils/100 WBC (Bld) 74.1 % High 47-70 [facility] Comment on above: Performed By: #### L 500.4050, L100.0100 ####[facility] [address] [place], [address] Nucleated RBC (Bld) [#/Vol] 0 10*3/uL Normal 0-5 [facility] Comment on above: Performed By: #### L 500.4050, L100.0100 ####[facility] [address] [place], [address] Platelet mean volume (Bld) [Entitic vol] 9.6 fL Normal 6.2-12.0 [facility] Comment on above: Performed By: #### L 500.4050, L100.0100 ####[facility] [address] [place], [address] Platelets (Bld) [#/Vol] 242 10*3/uL Normal 150-450 [facility] Comment on above: Performed By: #### L 500.4050, L100.0100 ####[facility] [address] [place], [address] RBC (Bld) [#/Vol] 3.53 10*6/uL Low 4.2-5.4 [facility] Comment on above: Performed By: #### L 500.4050, L100.0100 ####[facility] [address] [place], [address] RDW SD 46.4 fl High 35.1-43.9 [facility] Comment on above: Performed By: #### L 500.4050, L100.0100 ####[facility] [address] [place], [address] WBC (Bld) [#/Vol] 7.0 10*3/uL Normal 4.4-11.0 [facility] Comment on above: Performed By: #### L 500.4050, L100.0100 ####[facility] [address] [place], [address] Carbon dioxide, total [Moles /volume] in Central venous bloodOrdered By: Maxi Merlos on 12-29-2024 CO2 [Moles/Vol] 23.8 mmol/L 21.0-32.0 [facility] Chloride assayOrdered By: Maurice Merlos on 12-29-2024 Chloride [Moles/Vol] 106 mmol/L 98-108 [facility] Comprehensive Metabolic Prof ilon 12-29-2024 GAP 12 Normal 5-15 [facility] Comment on above: Performed By: #### L 500.4050, L100.0100 ####[facility] [address] [place], [address] Albumin [Mass/Vol] 4.1 g/dL Normal 3.4-4.8 [facility] Comment on above: Performed By: #### L 500.4050, L100.0100 ####[facility] [address] [place], [address] Albumin/Globulin [Mass ratio] 1.4 {ratio} Normal 0.9-2.4 [facility] Comment on above: Performed By: #### L 500.4050, L100.0100 ####[facility] [address] [place], [address] ALK PHOS 77 U/L Normal 35-104 [facility] Comment on above: Performed By: #### L 500.4050, L100.0100 ####[facility] [address] [place], [address] ALT [Catalytic activity/Vol] 18 U/L Normal <=34 [facility] Comment on above: Performed By: #### L 500.4050, L100.0100 ####[facility] [address] [place], [address] AST [Catalytic activity/Vol] 19 U/L Normal <=31 [facility] Comment on above: Performed By: #### L 500.4050, L100.0100 ####[facility] [address] [place], [address] Bilirubin [Mass/Vol] 0.24 mg/dL Normal 0.00-1.30 [facility] Comment on above: Performed By: #### L 500.4050, L100.0100 ####[facility] [address] [place], [address] BUN/CRE 21.2 RATIO High 10-20 [facility] Comment on above: Performed By: #### L 500.4050, L100.0100 ####[facility] [address] [place], [address] Calcium [Mass/Vol] 9.9 mg/dL Normal 7.6-11.0 [facility] Comment on above: Performed By: #### L 500.4050, L100.0100 ####[facility] [address] [place], [address] Chloride [Moles/Vol] 106 mmol/L Normal 98-108 [facility] Comment on above: Performed By: #### L 500.4050, L100.0100 ####[facility] [address] [place], [address] CO2 [Moles/Vol] 23.8 mmol/L Normal 21.0-32.0 [facility] Comment on above: Performed By: #### L 500.4050, L100.0100 ####[facility] [address] [place], [address] Creatinine [Mass/Vol] 0.81 mg/dL Normal 0.70-1.20 [facility] Comment on above: Performed By: #### L 500.4050, L100.0100 ####[facility] [address] [place], [address] ECRCL 71.80 ml/min Normal 50-250 [facility] Comment on above: Performed By: #### L 500.4050, L100.0100 ####[facility] [address] [place], [address] GFR/1.73 sq M.predicted among non-blacks MDRD (S/P/Bld) [Vol rate/Area] 79 mL/min/{1.73_m2} Normal >60 [facility] Comment on above: Result Comment: mL/m in/1.73m2 CKD-EPI Creatinine Equation (2020) Performed By: #### L 500.4050, L100.0100 ####[facility] [address] [place], [address] Globulin (S) [Mass/Vol] 2.9 g/dL Normal 2.2-4.2 [facility] Comment on above: Performed By: #### L 500.4050, L100.0100 ####[facility] [address] [place], [address] Glucose [Mass/Vol] 163 mg/dL High 70-99 [facility] Comment on above: Performed By: #### L 500.4050, L100.0100 ####[facility] [address] [place], [address] Potassium [Moles/Vol] 4.2 mmol/L Normal 3.3-5.1 [facility] Comment on above: Performed By: #### L 500.4050, L100.0100 ####[facility] [address] [place], [address] Sodium [Moles/Vol] 141 mmol/L Normal 133-145 [facility] Comment on above: Performed By: #### L 500.4050, L100.0100 ####[facility] [address] [place], [address] T PROT 7.0 g/dL Normal 5.9-8.4 [facility] Comment on above: Performed By: #### L 500.4050, L100.0100 ####[facility] [address] [place], [address] Urea nitrogen [Mass/Vol] 17 mg/dL Normal 4-19 [facility] Comment on above: Performed By: #### L 500.4050, L100.0100 ####[facility] [address] [place], [address] Eosinophil percentageOrdered By: Maxi Merlos on 12-29-2024 Eosinophils/100 WBC (Bld) 2.6 % 0-5 [facility] Erythrocyte distribution wid th ratioOrdered By: Maxi Merlos on 12-29-2024 Erythrocyte distribution width (RBC) [Ratio] 13.4 % 11.6-14.6 [facility] Erythrocyte distribution wid th standard deviationOrdered By: Maxi Merlos on 12-29-2024 Erythrocyte distribution width (RBC) [Ratio] 46.4 fl High 35.1-43.9 [facility] Glomerular filtration rate ( GFR) estimation/1.73 sq m using serum, plasma, or whole bOrdered By: Maxi Merlos on 12-29-2024 GFR/1.73 sq M.predicted among non-blacks MDRD (S/P/Bld) [Vol rate/Area] 79 mL/min/{1.73_m2} >60 [facility] Comment on above: mL/min/1.73m2 CKD-EP I Creatinine Equation (2020) Hematocrit Auto (Bld) [Volum e fraction]Ordered By: Maxi Merlos on 12-29-2024 Hematocrit (Bld) [Volume fraction] 33.4 % Low 37-47 [facility] Hemoglobin measurementOrdere d By: Maxi Merlos on 12-29-2024 Hemoglobin (Bld) [Mass/Vol] 11.0 g/dL Low 12.0-15.0 [facility] Immature granulocytes/100 WB C Auto (Bld)Ordered By: Maxi Merlos on 12-29-2024 Immature granulocytes/100 WBC (Bld) 0.400 % 0.0-0.9 [facility] Comment on above: IG% - Immature Granu locytes (promyelocytes, myelocytes and metamyelocytes) > 1% indicates that a LEFT SHIFT is Present. Laboratory - Chemistry and C hemistry - challengeOrdered By: Maxi Merlos on 12-29-2024 AST [Catalytic activity/Vol] 19 U/L <32 [facility] MCV (mean corpuscular volume ) determinationOrdered By: [facility] on 12-29-2024 MCV (RBC) [Entitic vol] 94.6 fL 81-99 [facility] Magnesiumon 12-29-2024 Magnesium [Mass/Vol] 1.7 mg/dL Normal 1.5-2.2 [facility] Comment on above: Performed By: #### L 501.2300, L501.5200 ####[facility] [address] [place], [place], [address] Magnesium measurement (mass/ volume)Ordered By: [facility] Mer[facility] on 12-29-2024 Magnesium (Unsp spec) [Mass/Vol] 1.7 mg/dL 1.5-2.2 [facility] Mean corpuscular hemoglobin (MCH) determinationOrdered By: [facility] Mer[facility] on 12-29-2024 MCH (RBC) [Entitic mass] 31.2 pg 27.0-32.0 [facility] Mean corpuscular hemoglobin concentration (MCHC) determinationOrdered By: Maxi Merlos on 12-29-2024 MCHC (RBC) [Mass/Vol] 32.9 g/dL 32-36 [facility] Mean platelet volume determi nationOrdered By: Maxi Merlos on 12-29-2024 Platelet mean volume (Bld) [Entitic vol] 9.6 fL 6.2-12.0 [facility] Monocyte percentageOrdered B y: Maxi Merlos on 12-29-2024 Monocytes/100 WBC (Bld) 8.8 % 0-10 [facility] Neutrophil percentageOrdered By: [facility] Mer[facility] on 12-29-2024 Neutrophils/100 WBC (Bld) 74.1 % High 47-70 [facility] Nucleated red blood cell per centageOrdered By: Maxi Merlos on 12-29-2024 Nucleated RBC/100 WBC (Bld) [Ratio] 0 % 0-5 [facility] Oncology Visit Reporton 12-02 0-2024 Oncology Visit Report Normal [facility] Phosphoruson 12-29-2024 Phosphate [Mass/Vol] 3.8 mg/dL Normal 2.7-4.5 [facility] Comment on above: Performed By: #### L 501.2300, L501.5200 ####[facility] [address] [place], [address] Platelet countOrdered By: Maurice Merlos on 12-29-2024 Platelets (Bld) [#/Vol] 242 10*3/uL 150-450 [facility] Potassium measurement (mass/ volume)Ordered By: Maxi Merlos on 12-29-2024 Potassium (Unsp spec) [Mass/Vol] 4.2 mmol/L 3.3-5.1 [facility] RBC Auto (Bld) [#/Vol]Ordere d By: Maxi Merlos on 12-29-2024 RBC (Bld) [#/Vol] 3.53 10*6/uL Low 4.2-5.4 [facility] Serum creatinine measurement (mass/volume)Ordered By: Maxi Merlos on 12-29-2024 Creatinine [Mass/Vol] 0.81 mg/dL 0.70-1.20 [facility] Serum globulin measurementOr dered By: Maxi Merlos on 12-29-2024 Globulin (S) [Mass/Vol] 2.9 g/dL 2.2-4.2 [facility] Serum glucose measurement (m ass/volume)Ordered By: Maxi Merlos on 12-29-2024 Glucose [Mass/Vol] 163 mg/dL High 70-99 [facility] Serum or plasma alanine goodrich otransferase (ALT) measurementOrdered By: Maxi Merlos on 12-29-2024 ALT [Catalytic activity/Vol] 18 U/L <35 [facility] Serum or plasma albumin chacorta urement (mass/volume)Ordered By: Maxi Merlos on 12-29-2024 Albumin [Mass/Vol] 4.1 g/dL 3.4-4.8 [facility] Serum or plasma albumin/glob ulin mass ratioOrdered By: Maxi Merlos on 12-29-2024 Albumin/Globulin [Mass ratio] 1.4 {ratio} 0.9-2.4 [facility] Serum or plasma alkaline sofiya sphatase measurementOrdered By: Maxi Merlos on 12-29-2024 ALP [Catalytic activity/Vol] 77 U/L 35-104 [facility] Serum or plasma calcium chacorta urement (mass/volume)Ordered By: Maxi Merlos on 12-29-2024 Calcium [Mass/Vol] 9.9 mg/dL 7.6-11.0 [facility] Serum or plasma urea nitroge n measurement (mass/volume)Ordered By: Maxi Merlos on 12-29-2024 Urea nitrogen [Mass/Vol] 17 mg/dL 4-19 [facility] Sodium levelOrdered By: Humberto Merlos on 12-29-2024 Sodium [Moles/Vol] 141 mmol/L 133-145 [facility] Total proteinOrdered By: Vernon Merlos on 12-29-2024 Protein [Mass/Vol] 7.0 g/dL 5.9-8.4 [facility] White blood cell (WBC) count Ordered By: Maxi Merlos on 12-29-2024 WBC (Bld) [#/Vol] 7.0 10*3/uL 4.4-11.0 [facility] CT Chest AND Abd W/ Contrast on 12-24-2024 CT Chest AND Abd W/ Contrast Normal [facility] Absolute lymphocyte countOrd ered By: Maxi Merlos on 12-01-2024 Lymphocytes Auto (Unsp spec) [#/Vol] 1.09 10*3/uL 0.83-4.51 [facility] Absolute neutrophil countOrd ered By: Maxi Merlos on 12-01-2024 Neutrophils (Bld) [#/Vol] 3.8 10*3/uL 2.0-7.7 [facility] Anion gap in Serum or Plasma Ordered By: Humbertolasha Merlos on 12-01-2024 Anion gap [Moles/Vol] 12 mmol/L 5-15 [facility] Automated lymphocyte count a s percentage of total leukocytesOrdered By: [facility] Gaur[facility] on 12-01-2024 Lymphocytes/100 WBC Auto (Unsp spec) 18.8 % Low 19-41 [facility] BUN/creatinine ratioOrdered By: [facility] Gaurang on 12-01-2024 Urea nitrogen/Creatinine [Mass ratio] 23.9 mg/mg High 10-20 [facility] Basophil percentageOrdered B y: [facility] G[facility] on 12-01-2024 Basophils/100 WBC (Bld) 0.5 % 0-1 [facility] Bilirubin, totalOrdered By: [facility] Gaurang on 12-01-2024 Bilirubin [Mass/Vol] 0.19 mg/dL 0.00-1.30 [facility] CBC W/Diff, Automatedon Absolute Lymph 1.09 X10 3/uL Normal 0.83-4.51 [facility] Comment on above: Performed By: #### L 500.4050, L100.0100 ####[facility] [address] [place], [address] Absolute Neut 3.8 X10 3/uL Normal 2.0-7.7 [facility] Comment on above: Performed By: #### L 500.4050, L100.0100 ####[facility] [address] [place], [address] Basophils/100 WBC (Bld) 0.5 % Normal 0-1 [facility] Comment on above: Performed By: #### L 500.4050, L100.0100 ####[facility] [address] [place], [address] Eosinophils/100 WBC (Bld) 3.8 % Normal 0-5 [facility] Comment on above: Performed By: #### L 500.4050, L100.0100 ####[facility] [address] [place], [address] Erythrocyte distribution width (RBC) [Ratio] 12.5 % Normal 11.6-14.6 [facility] Comment on above: Performed By: #### L 500.4050, L100.0100 ####[facility] [address] [place], [address] Hematocrit (Bld) [Volume fraction] 34.4 % Low 37-47 [facility] Comment on above: Performed By: #### L 500.4050, L100.0100 ####[facility] [address] [place], [address] Hemoglobin (Bld) [Mass/Vol] 11.3 g/dL Low 12.0-15.0 [facility] Comment on above: Performed By: #### L 500.4050, L100.0100 ####[facility] [address] [place], [address] IG% 0.300 Normal 0.0-0.9 [facility] Comment on above: Result Comment: IG% - Immature Granulocytes (promyelocytes, myelocytes andmetamyelocytes) > 1% indicates that a LEFT SHIFT is Present. Performed By: #### L 500.4050, L100.0100 ####[facility] [address] [place], [address] Lymphocytes/100 WBC (Bld) 18.8 % Low 19-41 [facility] Comment on above: Performed By: #### L 500.4050, L100.0100 ####[facility] [address] [place], [address] MCH (RBC) [Entitic mass] 31.4 pg Normal 27.0-32.0 [facility] Comment on above: Performed By: #### L 500.4050, L100.0100 ####[facility] [address] [place], [address] MCHC (RBC) [Mass/Vol] 32.8 g/dL Normal 32-36 [facility] Comment on above: Performed By: #### L 500.4050, L100.0100 ####[facility] [address] [place], [address] MCV (RBC) [Entitic vol] 95.6 fL Normal 81-99 [facility] Comment on above: Performed By: #### L 500.4050, L100.0100 ####[facility] [address] [place], [address] Monocytes/100 WBC (Bld) 11.9 % High 0-10 [facility] Comment on above: Performed By: #### L 500.4050, L100.0100 ####[facility] [address] [place], [address] Neutrophils/100 WBC (Bld) 64.7 % Normal 47-70 [facility] Comment on above: Performed By: #### L 500.4050, L100.0100 ####[facility] [address] [place], [address] Nucleated RBC (Bld) [#/Vol] 0 10*3/uL Normal 0-5 [facility] Comment on above: Performed By: #### L 500.4050, L100.0100 ####[facility] [address] [place], [address] Platelet mean volume (Bld) [Entitic vol] 9.4 fL Normal 6.2-12.0 [facility] Comment on above: Performed By: #### L 500.4050, L100.0100 ####[facility] [address] [place], [address] Platelets (Bld) [#/Vol] 246 10*3/uL Normal 150-450 [facility] Comment on above: Performed By: #### L 500.4050, L100.0100 ####[facility] [address] [place], [address] RBC (Bld) [#/Vol] 3.60 10*6/uL Low 4.2-5.4 [facility] Comment on above: Performed By: #### L 500.4050, L100.0100 ####[facility] [address] [place], [address] RDW SD 44.0 fl High 35.1-43.9 [facility] Comment on above: Performed By: #### L 500.4050, L100.0100 ####[facility] [address] [place], [address] WBC (Bld) [#/Vol] 5.8 10*3/uL Normal 4.4-11.0 [facility] Comment on above: Performed By: #### L 500.4050, L100.0100 ####[facility] [address] [place], [address] Carbon dioxide, total [Moles /volume] in Central venous bloodOrdered By: Maxi Merlos on 12-01-2024 CO2 [Moles/Vol] 24.9 mmol/L 21.0-32.0 [facility] Chloride assayOrdered By: Maurice Merlos on 12-01-2024 Chloride [Moles/Vol] 104 mmol/L 98-108 [facility] Comprehensive Metabolic Prof ilon 12-01-2024 Albumin [Mass/Vol] 4.1 g/dL Normal 3.4-4.8 [facility] Comment on above: Performed By: #### L 500.4050, L100.0100 ####[facility] [address] [place], [address] Albumin/Globulin [Mass ratio] 1.5 {ratio} Normal 0.9-2.4 [facility] Comment on above: Performed By: #### L 500.4050, L100.0100 ####[facility] [address] [place], [address] ALK PHOS 79 U/L Normal 35-104 [facility] Comment on above: Performed By: #### L 500.4050, L100.0100 ####[facility] [address] [place], [address] ALT [Catalytic activity/Vol] 15 U/L Normal <=34 [facility] Comment on above: Performed By: #### L 500.4050, L100.0100 ####[facility] [address] [place], [address] AST [Catalytic activity/Vol] 18 U/L Normal <=31 [facility] Comment on above: Performed By: #### L 500.4050, L100.0100 ####[facility] [address] [place], [address] Bilirubin [Mass/Vol] 0.19 mg/dL Normal 0.00-1.30 [facility] Comment on above: Performed By: #### L 500.4050, L100.0100 ####[facility] [address] [place], [address] BUN/CRE 23.9 RATIO High 10-20 [facility] Comment on above: Performed By: #### L 500.4050, L100.0100 ####[facility] [address] [place], [address] Calcium [Mass/Vol] 9.8 mg/dL Normal 7.6-11.0 [facility] Comment on above: Performed By: #### L 500.4050, L100.0100 ####[facility] [address] [place], [address] Chloride [Moles/Vol] 104 mmol/L Normal 98-108 [facility] Comment on above: Performed By: #### L 500.4050, L100.0100 ####[facility] [address] [place], [address] CO2 [Moles/Vol] 24.9 mmol/L Normal 21.0-32.0 [facility] Comment on above: Performed By: #### L 500.4050, L100.0100 ####[facility] [address] [place], [address] Creatinine [Mass/Vol] 0.74 mg/dL Normal 0.70-1.20 [facility] Comment on above: Performed By: #### L 500.4050, L100.0100 ####[facility] [address] [place], [address] ECRCL 71.87 ml/min Normal 50-250 [facility] Comment on above: Performed By: #### L 500.4050, L100.0100 ####[facility] [address] [place], [address] GAP 12 Normal 5-15 [facility] Comment on above: Performed By: #### L 500.4050, L100.0100 ####[facility] [address] [place], [address] GFR/1.73 sq M.predicted among non-blacks MDRD (S/P/Bld) [Vol rate/Area] 86 mL/min/{1.73_m2} Normal >60 [facility] Comment on above: Result Comment: mL/m in/1.73m2 CKD-EPI Creatinine Equation (2020) Performed By: #### L 500.4050, L100.0100 ####[facility] [address] [place], [address] Globulin (S) [Mass/Vol] 2.7 g/dL Normal 2.2-4.2 [facility] Comment on above: Performed By: #### L 500.4050, L100.0100 ####[facility] [address] [place], [address] Glucose [Mass/Vol] 130 mg/dL High 70-99 [facility] Comment on above: Performed By: #### L 500.4050, L100.0100 ####[facility] [address] [place], [address] Potassium [Moles/Vol] 4.2 mmol/L Normal 3.3-5.1 [facility] Comment on above: Performed By: #### L 500.4050, L100.0100 ####[facility] [address] [place], [address] Sodium [Moles/Vol] 141 mmol/L Normal 133-145 [facility] Comment on above: Performed By: #### L 500.4050, L100.0100 ####[facility] [address] [place], [address] T PROT 6.8 g/dL Normal 5.9-8.4 [facility] Comment on above: Performed By: #### L 500.4050, L100.0100 ####[facility] [address] [place], [address] Urea nitrogen [Mass/Vol] 18 mg/dL Normal 4-19 [facility] Comment on above: Performed By: #### L 500.4050, L100.0100 ####[facility] [address] [place], [address] Eosinophil percentageOrdered By: Maxi Merlos on 12-01-2024 Eosinophils/100 WBC (Bld) 3.8 % 0-5 [facility] Erythrocyte distribution wid th ratioOrdered By: Maxi Merlos on 12-01-2024 Erythrocyte distribution width (RBC) [Ratio] 12.5 % 11.6-14.6 [facility] Erythrocyte distribution wid th standard deviationOrdered By: Maxi Merlos on 12-01-2024 Erythrocyte distribution width (RBC) [Ratio] 44.0 fl High 35.1-43.9 [facility] Glomerular filtration rate ( GFR) estimation/1.73 sq m using serum, plasma, or whole bOrdered By: Maxi Merlos on 12-01-2024 GFR/1.73 sq M.predicted among non-blacks MDRD (S/P/Bld) [Vol rate/Area] 86 mL/min/{1.73_m2} >60 [facility] Comment on above: mL/min/1.73m2 CKD-EP I Creatinine Equation (2020) Hematocrit Auto (Bld) [Volum e fraction]Ordered By: Maxi Merlos on 12-01-2024 Hematocrit (Bld) [Volume fraction] 34.4 % Low 37-47 [facility] Hemoglobin measurementOrdere d By: Maxi Merlos on 12-01-2024 Hemoglobin (Bld) [Mass/Vol] 11.3 g/dL Low 12.0-15.0 [facility] Immature granulocytes/100 WB C Auto (Bld)Ordered By: [facility] on 12-01-2024 Immature granulocytes/100 WBC (Bld) 0.300 % 0.0-0.9 [facility] Comment on above: IG% - Immature Granu locytes (promyelocytes, myelocytes and metamyelocytes) > 1% indicates that a LEFT SHIFT is Present. L509.6001on 12-01-2024 CORTISOL 6.86 ug/dL Normal 6.02-18.40 [facility] Comment on above: Performed By: #### L 509.6001 ####[facility] [address] [place], [address] Laboratory - Chemistry and C hemistry - challengeOrdered By: Maxi Merlos on 12-01-2024 AST [Catalytic activity/Vol] 18 U/L <32 [facility] MCV (mean corpuscular volume ) determinationOrdered By: [facility] on 12-01-2024 MCV (RBC) [Entitic vol] 95.6 fL 81-99 [facility] Mean corpuscular hemoglobin (MCH) determinationOrdered By: Maxi Merlos on 12-01-2024 MCH (RBC) [Entitic mass] 31.4 pg 27.0-32.0 [facility] Mean corpuscular hemoglobin concentration (MCHC) determinationOrdered By: Maxi Merlos on 12-01-2024 MCHC (RBC) [Mass/Vol] 32.8 g/dL 32-36 [facility] Mean platelet volume determi nationOrdered By: Maxi Merlos on 12-01-2024 Platelet mean volume (Bld) [Entitic vol] 9.4 fL 6.2-12.0 [facility] Monocyte percentageOrdered B y: Maxi Merlos on 12-01-2024 Monocytes/100 WBC (Bld) 11.9 % High 0-10 [facility] Neutrophil percentageOrdered By: Maxi Merlos on 12-01-2024 Neutrophils/100 WBC (Bld) 64.7 % 47-70 [facility] Nucleated red blood cell per centageOrdered By: Maxi Merlos on 12-01-2024 Nucleated RBC/100 WBC (Bld) [Ratio] 0 % 0-5 [facility] Oncology Visit Reporton 07-0 Oncology Visit Report Normal [facility] Platelet countOrdered By: Maurice Merlos on 12-01-2024 Platelets (Bld) [#/Vol] 246 10*3/uL 150-450 [facility] Potassium measurement (mass/ volume)Ordered By: Maxi Merlos on 12-01-2024 Potassium (Unsp spec) [Mass/Vol] 4.2 mmol/L 3.3-5.1 [facility] RBC Auto (Bld) [#/Vol]Ordere d By: Maxi Merlos on 12-01-2024 RBC (Bld) [#/Vol] 3.60 10*6/uL Low 4.2-5.4 [facility] Serum creatinine measurement (mass/volume)Ordered By: Maxi Merlos on 12-01-2024 Creatinine [Mass/Vol] 0.74 mg/dL 0.70-1.20 [facility] Serum globulin measurementOr dered By: Maxi Merlos on 12-01-2024 Globulin (S) [Mass/Vol] 2.7 g/dL 2.2-4.2 [facility] Serum glucose measurement (m ass/volume)Ordered By: Maxi Merlos on 12-01-2024 Glucose [Mass/Vol] 130 mg/dL High 70-99 [facility] Serum or plasma alanine goodrich otransferase (ALT) measurementOrdered By: Maxi Merlos on 12-01-2024 ALT [Catalytic activity/Vol] 15 U/L <35 [facility] Serum or plasma albumin chacorta urement (mass/volume)Ordered By: Maxi Merlos on 12-01-2024 Albumin [Mass/Vol] 4.1 g/dL 3.4-4.8 [facility] Serum or plasma albumin/glob ulin mass ratioOrdered By: Maxi Merlos on 12-01-2024 Albumin/Globulin [Mass ratio] 1.5 {ratio} 0.9-2.4 [facility] Serum or plasma alkaline sofiya sphatase measurementOrdered By: Maxi Merlos on 12-01-2024 ALP [Catalytic activity/Vol] 79 U/L 35-104 [facility] Serum or plasma calcium chacorta urement (mass/volume)Ordered By: Maxi Merlos on 12-01-2024 Calcium [Mass/Vol] 9.8 mg/dL 7.6-11.0 [facility] Serum or plasma cortisol julio surement (mass/volume)Ordered By: Maxi Merlos on 12-01-2024 Cortisol [Mass/Vol] 6.86 ug/dL 6.02-18.40 [facility] Serum or plasma urea nitroge n measurement (mass/volume)Ordered By: Maxi Merlos on 12-01-2024 Urea nitrogen [Mass/Vol] 18 mg/dL 4-19 [facility] Sodium levelOrdered By: Humberto Merlos on 12-01-2024 Sodium [Moles/Vol] 141 mmol/L 133-145 [facility] Total proteinOrdered By: Vernon Merlos on 12-01-2024 Protein [Mass/Vol] 6.8 g/dL 5.9-8.4 [facility] White blood cell (WBC) count Ordered By: Maxi Merlos on 12-01-2024 WBC (Bld) [#/Vol] 5.8 10*3/uL 4.4-11.0 [facility] Radiation Oncology Visiton 0 11-16-2024 Radiation Oncology Visit Normal [facility] Brain W/WO Contraston 2024 Brain W/WO Contrast Normal [facility] Magnetic resonance imaging r eportOrdered By: Ke Mcwilliams on 11-10-2024 Study report [facility] Imaging Services [address] [place] [address] Brain W/WO Contrast MR#: [id number] Acct: [id number] Name: ANDREA CALIX Rep #: [id number] : [id number] F 69 From: Keith Mcwilliams MD PCP: DAYA WillisC Status: REG CLI Study:Brain W/WO Contrast Date of Exam: 11/10/24 Exam# [id number] Ordering Dr: Nicolas Barclay DO PROCEDURE: BRAIN W/WO CONTRAST 11/10/2024 REASON FOR EXAM: SCLC, 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 Multiplanar and multisequence images were obtained. CONTRAST: Clariscan VOLUME: 19 mL COMPARISON: 08/10/2024. FINDINGS: Mild global parenchymal atrophy. Minimal chronic microvascular ischemia. No evidence acute hemorrhage or infarction. No extra-axial blood or fluid collections. Trace bilateral partial mastoid effusions. No abnormal intracranial enhancement. The paranasal sinuses are clear. MRI/Brain W/WO Contrast IMPRESSION: No acute intracranial abnormality. No abnormal enhancement. Reading Location: [id number] CC: HYDROELECTRIC SYSTEMS TECHNICIAN-C Oscar Mott; Dr. Nicolas Barclay DO ~ [employer]: Signed [facility] Pulmonary Visit Reporton Pulmonary Visit Report Normal [facility] Absolute lymphocyte countOrd ered By: Maxi Merlos on 11-03-2024 Lymphocytes Auto (Unsp spec) [#/Vol] 1.12 10*3/uL 0.83-4.51 [facility] Absolute neutrophil countOrd ered By: Maxi Merlos on 11-03-2024 Neutrophils (Bld) [#/Vol] 3.8 10*3/uL 2.0-7.7 [facility] Anion gap in Serum or Plasma Ordered By: aMxi Merlos on 11-03-2024 Anion gap [Moles/Vol] 10 mmol/L 5-15 [facility] Automated lymphocyte count a s percentage of total leukocytesOrdered By: Maxi Merlos on 11-03-2024 Lymphocytes/100 WBC Auto (Unsp spec) 19.1 % 19- [facility] BUN/creatinine ratioOrdered By: [facility] Gaurang on 11-03-2024 Urea nitrogen/Creatinine [Mass ratio] 24.4 mg/mg High 10-20 [facility] Basophil percentageOrdered B y: Maxi Merlos on 11-03-2024 Basophils/100 WBC (Bld) 0.5 % 0-1 [facility] Bilirubin, totalOrdered By: Maxi Mrelos on 11-03-2024 Bilirubin [Mass/Vol] mg/dL 0.00-1.30 [facility] CBC W/Diff, Automatedon Absolute Lymph 1.12 X10 3/uL Normal 0.83-4.51 [facility] Comment on above: Performed By: #### L 100.0100, L500.4050 ####[facility] [address] [place], [address] Absolute Neut 3.8 X10 3/uL Normal 2.0-7.7 [facility] Comment on above: Performed By: #### L 100.0100, L500.4050 ####[facility] [address] [place], [address] Basophils/100 WBC (Bld) 0.5 % Normal 0-1 [facility] Comment on above: Performed By: #### L 100.0100, L500.4050 ####[facility] [address] [place], [address] Eosinophils/100 WBC (Bld) 3.6 % Normal 0-5 [facility] Comment on above: Performed By: #### L 100.0100, L500.4050 ####[facility] [address] [place], [address] Erythrocyte distribution width (RBC) [Ratio] 12.0 % Normal 11.6-14.6 [facility] Comment on above: Performed By: #### L 100.0100, L500.4050 ####[facility] [address] [place], [address] Hematocrit (Bld) [Volume fraction] 34.8 % Low 37-47 [facility] Comment on above: Performed By: #### L 100.0100, L500.4050 ####[facility] [address] [place], [address] Hemoglobin (Bld) [Mass/Vol] 11.3 g/dL Low 12.0-15.0 [facility] Comment on above: Performed By: #### L 100.0100, L500.4050 ####[facility] [address] [place], [address] IG% 0.300 Normal 0.0-0.9 [facility] Comment on above: Result Comment: IG% - Immature Granulocytes (promyelocytes, myelocytes andmetamyelocytes) > 1% indicates that a LEFT SHIFT is Present. Performed By: #### L 100.0100, L500.4050 ####[facility] [address] [place], [address] Lymphocytes/100 WBC (Bld) 19.1 % Normal 19-41 [facility] Comment on above: Performed By: #### L 100.0100, L500.4050 ####[facility] [address] [place], [address] MCH (RBC) [Entitic mass] 31.9 pg Normal 27.0-32.0 [facility] Comment on above: Performed By: #### L 100.0100, L500.4050 ####[facility] [address] [place], [address] MCHC (RBC) [Mass/Vol] 32.5 g/dL Normal 32-36 [facility] Comment on above: Performed By: #### L 100.0100, L500.4050 ####[facility] [address] [place], [address] MCV (RBC) [Entitic vol] 98.3 fL Normal 81-99 [facility] Comment on above: Performed By: #### L 100.0100, L500.4050 ####[facility] [address] [place], [address] Monocytes/100 WBC (Bld) 11.1 % High 0-10 [facility] Comment on above: Performed By: #### L 100.0100, L500.4050 ####[facility] [address] [place], [address] Neutrophils/100 WBC (Bld) 65.4 % Normal 47-70 [facility] Comment on above: Performed By: #### L 100.0100, L500.4050 ####[facility] [address] [place], [address] Nucleated RBC (Bld) [#/Vol] 0 10*3/uL Normal 0-5 [facility] Comment on above: Performed By: #### L 100.0100, L500.4050 ####[facility] [address] [place], [address] Platelet mean volume (Bld) [Entitic vol] 9.5 fL Normal 6.2-12.0 [facility] Comment on above: Performed By: #### L 100.0100, L500.4050 ####[facility] [address] [place], [address] Platelets (Bld) [#/Vol] 271 10*3/uL Normal 150-450 [facility] Comment on above: Performed By: #### L 100.0100, L500.4050 ####[facility] [address] [place], [address] RBC (Bld) [#/Vol] 3.54 10*6/uL Low 4.2-5.4 [facility] Comment on above: Performed By: #### L 100.0100, L500.4050 ####[facility] [address] [place], [address] RDW SD 43.9 fl Normal 35.1-43.9 [facility] [facility] Comment on above: Performed By: #### L 100.0100, L500.4050 ####[facility] [address] [place], [address] WBC (Bld) [#/Vol] 5.9 10*3/uL Normal 4.4-11.0 [facility] Comment on above: Performed By: #### L 100.0100, L500.4050 ####[facility] [address] [place], [address] Carbon dioxide, total [Moles /volume] in Central venous bloodOrdered By: Maxi Merlos on 11-03-2024 CO2 [Moles/Vol] 25.3 mmol/L 21.0-32.0 [facility] Chloride assayOrdered By: Maurice Merlos on 11-03-2024 Chloride [Moles/Vol] 103 mmol/L 98-108 [facility] Comprehensive Metabolic Prof ilon 11-03-2024 Albumin [Mass/Vol] 4.0 g/dL Normal 3.4-4.8 [facility] Comment on above: Performed By: #### L 100.0100, L500.4050 ####[facility] [address] [place], [address] Albumin/Globulin [Mass ratio] 1.5 {ratio} Normal 0.9-2.4 [facility] Comment on above: Performed By: #### L 100.0100, L500.4050 ####[facility] [address] [place], [address] ALK PHOS 78 U/L Normal 35-104 [facility] Comment on above: Performed By: #### L 100.0100, L500.4050 ####[facility] [address] [place], [address] ALT [Catalytic activity/Vol] 14 U/L Normal <=34 [facility] Comment on above: Performed By: #### L 100.0100, L500.4050 ####[facility] [address] [place], [address] AST [Catalytic activity/Vol] 18 U/L Normal <=31 [facility] Comment on above: Performed By: #### L 100.0100, L500.4050 ####[facility] [address] [place], [address] BUN/CRE 24.4 RATIO High 10-20 [facility] Comment on above: Performed By: #### L 100.0100, L500.4050 ####[facility] [address] [place], [address] Calcium [Mass/Vol] 9.7 mg/dL Normal 7.6-11.0 [facility] Comment on above: Performed By: #### L 100.0100, L500.4050 ####[facility] [address] [place], [address] Chloride [Moles/Vol] 103 mmol/L Normal 98-108 [facility] Comment on above: Performed By: #### L 100.0100, L500.4050 ####[facility] [address] [place], [address] CO2 [Moles/Vol] 25.3 mmol/L Normal 21.0-32.0 [facility] Comment on above: Performed By: #### L 100.0100, L500.4050 ####[facility] [address] [place], [address] ECRCL 71.64 ml/min Normal 50-250 [facility] Comment on above: Performed By: #### L 100.0100, L500.4050 ####[facility] [address] [place], [address] GAP 10 Normal 5-15 [facility] Comment on above: Performed By: #### L 100.0100, L500.4050 ####[facility] [address] [place], [address] GFR/1.73 sq M.predicted among non-blacks MDRD (S/P/Bld) [Vol rate/Area] 83 mL/min/{1.73_m2} Normal >60 [facility] Comment on above: Result Comment: mL/m in/1.73m2 CKD-EPI Creatinine Equation (2020) Performed By: #### L 100.0100, L500.4050 ####[facility] [address] [place], [address] Globulin (S) [Mass/Vol] 2.8 g/dL Normal 2.2-4.2 [facility] Comment on above: Performed By: #### L 100.0100, L500.4050 ####[facility] [address] [place], [address] Potassium [Moles/Vol] 4.1 mmol/L Normal 3.3-5.1 [facility] Comment on above: Performed By: #### L 100.0100, L500.4050 ####[facility] [address] [place], [address] Sodium [Moles/Vol] 139 mmol/L Normal 133-145 [facility] Comment on above: Performed By: #### L 100.0100, L500.4050 ####[facility] [address] [place], [address] T BILI < 0.15 Normal 0.00-1.30 [facility] Comment on above: Performed By: #### L 100.0100, L500.4050 ####[facility] [address] [place], [address] T PROT 6.8 g/dL Normal 5.9-8.4 [facility] Comment on above: Performed By: #### L 100.0100, L500.4050 ####[facility] [address] [place], [address] Creatinine [Mass/Vol] 0.77 mg/dL Normal 0.70-1.20 [facility] Comment on above: Performed By: #### L 100.0100, L500.4050 ####[facility] [address] [place], [address] Glucose [Mass/Vol] 137 mg/dL High 70-99 [facility] Comment on above: Performed By: #### L 100.0100, L500.4050 ####[facility] [address] [place], [address] Urea nitrogen [Mass/Vol] 19 mg/dL Normal 4-19 [facility] Comment on above: Performed By: #### L 100.0100, L500.4050 ####[facility] [address] [place], [address] Eosinophil percentageOrdered By: Maxi Merlos on 11-03-2024 Eosinophils/100 WBC (Bld) 3.6 % 0-5 [facility] Erythrocyte distribution wid th ratioOrdered By: Maxi Merlos on 11-03-2024 Erythrocyte distribution width (RBC) [Ratio] 12.0 % 11.6-14.6 [facility] Erythrocyte distribution wid th standard deviationOrdered By: Maxi Merlos on 11-03-2024 Erythrocyte distribution width (RBC) [Ratio] 43.9 fl 35.1-43.9 [facility] Glomerular filtration rate ( GFR) estimation/1.73 sq m using serum, plasma, or whole bOrdered By: Maxi Merlos on 11-03-2024 GFR/1.73 sq M.predicted among non-blacks MDRD (S/P/Bld) [Vol rate/Area] 83 mL/min/{1.73_m2} >60 [facility] Comment on above: mL/min/1.73m2 CKD-EP I Creatinine Equation (2020) Hematocrit Auto (Bld) [Volum e fraction]Ordered By: Maxi Merlos on 11-03-2024 Hematocrit (Bld) [Volume fraction] 34.8 % Low 37-47 [facility] Hemoglobin measurementOrdere d By: Maxi Merlos on 11-03-2024 Hemoglobin (Bld) [Mass/Vol] 11.3 g/dL Low 12.0-15.0 [facility] Immature granulocytes/100 WB C Auto (Bld)Ordered By: Maxi Merlos on 11-03-2024 Immature granulocytes/100 WBC (Bld) 0.300 % 0.0-0.9 [facility] Comment on above: IG% - Immature Granu locytes (promyelocytes, myelocytes and metamyelocytes) > 1% indicates that a LEFT SHIFT is Present. Laboratory - Chemistry and C hemistry - challengeOrdered By: Maxi Merlos on 11-03-2024 AST [Catalytic activity/Vol] 18 U/L <32 [facility] MCV (mean corpuscular volume ) determinationOrdered By: Maxi Merlos on 11-03-2024 MCV (RBC) [Entitic vol] 98.3 fL 81-99 [facility] Mean corpuscular hemoglobin (MCH) determinationOrdered By: [facility] on 11-03-2024 MCH (RBC) [Entitic mass] 31.9 pg 27.0-32.0 [facility] Mean corpuscular hemoglobin concentration (MCHC) determinationOrdered By: Maxi Merlos on 11-03-2024 MCHC (RBC) [Mass/Vol] 32.5 g/dL 32-36 [facility] Mean platelet volume determi nationOrdered By: Maxi Merlos on 11-03-2024 Platelet mean volume (Bld) [Entitic vol] 9.5 fL 6.2-12.0 [facility] Monocyte percentageOrdered B y: Maxi Merlos on 11-03-2024 Monocytes/100 WBC (Bld) 11.1 % High 0-10 [facility] Neutrophil percentageOrdered By: Maxi Merlos on 11-03-2024 Neutrophils/100 WBC (Bld) 65.4 % 47-70 [facility] Nucleated red blood cell per centageOrdered By: Maxi Merlos on 11-03-2024 Nucleated RBC/100 WBC (Bld) [Ratio] 0 % 0-5 [facility] Oncology Visit Reporton 06-0 Oncology Visit Report Normal [facility] Platelet countOrdered By: Maurice Merlos on 11-03-2024 Platelets (Bld) [#/Vol] 271 10*3/uL 150-450 [facility] Potassium measurement (mass/ volume)Ordered By: Maxi Merlos on 11-03-2024 Potassium (Unsp spec) [Mass/Vol] 4.1 mmol/L 3.3-5.1 [facility] RBC Auto (Bld) [#/Vol]Ordere d By: Maxi Merlos on 11-03-2024 RBC (Bld) [#/Vol] 3.54 10*6/uL Low 4.2-5.4 [facility] Serum creatinine measurement (mass/volume)Ordered By: Maxi Merlos on 11-03-2024 Creatinine [Mass/Vol] 0.77 mg/dL 0.70-1.20 [facility] Serum globulin measurementOr dered By: Maxi Merlos on 11-03-2024 Globulin (S) [Mass/Vol] 2.8 g/dL 2.2-4.2 [facility] Serum glucose measurement (m ass/volume)Ordered By: Maxi Merlos on 11-03-2024 Glucose [Mass/Vol] 137 mg/dL High 70-99 [facility] Serum or plasma alanine goodrich otransferase (ALT) measurementOrdered By: Maxi Merlos on 11-03-2024 ALT [Catalytic activity/Vol] 14 U/L <35 [facility] Serum or plasma albumin chacorta urement (mass/volume)Ordered By: Maxi Merlos on 11-03-2024 Albumin [Mass/Vol] 4.0 g/dL 3.4-4.8 [facility] Serum or plasma albumin/glob ulin mass ratioOrdered By: Maxi Merlos on 11-03-2024 Albumin/Globulin [Mass ratio] 1.5 {ratio} 0.9-2.4 [facility] Serum or plasma alkaline sofiya sphatase measurementOrdered By: Maxi Merlos on 11-03-2024 ALP [Catalytic activity/Vol] 78 U/L 35-104 [facility] Serum or plasma calcium chacorta urement (mass/volume)Ordered By: Maxi Merlos on 11-03-2024 Calcium [Mass/Vol] 9.7 mg/dL 7.6-11.0 [facility] Serum or plasma urea nitroge n measurement (mass/volume)Ordered By: Maxi Merlos on 11-03-2024 Urea nitrogen [Mass/Vol] 19 mg/dL 4-19 [facility] Sodium levelOrdered By: Humberto Merlos on 11-03-2024 Sodium [Moles/Vol] 139 mmol/L 133-145 [facility] Total proteinOrdered By: Vernon Merlos on 11-03-2024 Protein [Mass/Vol] 6.8 g/dL 5.9-8.4 [facility] White blood cell (WBC) count Ordered By: Maxi eMrlos on 11-03-2024 WBC (Bld) [#/Vol] 5.9 10*3/uL 4.4-11.0 [facility] Breast imaging reportOrdered By: Marylou Mercado on 10-15-2024 Study report [facility] Imaging Services [address] [place], [place] [id number] SCRN MAMM (CAD)W/HENRRY BILAT MR#: [id number] Acct: [id number] Name: ANDREA CALIX Rep #: [id number] : 1955 F 69 From: Wilfredo Gomez MD PCP: ANNETTE Willis Status: REG CLI Study:SCRN MAMM (CAD)W/HENRRY BILAT Date of Exa m: 10/15/24 Exam# [id number] Ordering Dr: Ra garrett Mott EXAM: SCRN MAMM (CAD)W/HENRRY BILAT DATE: 10/15/2024 CLINICAL HISTORY: F, Age 69 y/o , SCREENING BREAST CANCER RISK ASSESSMENT: Not reported TECHNIQUE: Bilateral screening digital breast tomosynthesis with 2D and 3D images. Computeraided detection. COMPARISON: Prior exam(s) were compared FINDINGS: TISSUE DENSITY: The breast tissue is heterogenously dense, which may obscure small masses. Bilateral Breast Mammographic Findings: No suspicious masses, calcifications or other abnormalities are identified. BI/SCRN MAMM (CAD)W/HENRRY BILAT IMPRESSION: OVERALL FINAL ASSESSMENT: BIRADS 1 NEGATIVE RECOMMENDATION: Routine annual follow-up in 1 Year A letter with findings and recommendations will be mailed to the patient. Reading Location: [id number] CC: ANNETTE Mott ~ [employer]: Signed [facility] SCRN MAMM (CAD)W/HENRRY BILATo n 10-15-2024 SCRN MAMM (CAD)W/HENRRY BILAT Normal [facility] Absolute lymphocyte countOrd ered By: Maxi Merlos on 10-06-2024 Lymphocytes Auto (Unsp spec) [#/Vol] 1.06 10*3/uL 0.83-4.51 [facility] Absolute neutrophil countOrd ered By: Maxi Merlos on 10-06-2024 Neutrophils (Bld) [#/Vol] 3.5 10*3/uL 2.0-7.7 [facility] Anion gap in Serum or Plasma Ordered By: Maxi Merlos on 10-06-2024 Anion gap [Moles/Vol] 12 mmol/L 5-15 [facility] Automated lymphocyte count a s percentage of total leukocytesOrdered By: [facility] Tovarsal on 10-06-2024 Lymphocytes/100 WBC Auto (Unsp spec) 20.0 % 19-41 [facility] BUN/creatinine ratioOrdered By: [facility] Lasal on 10-06-2024 Urea nitrogen/Creatinine [Mass ratio] 28.4 mg/mg High 10-20 [facility] Basophil percentageOrdered B y: Maxi Tovarsal on 10-06-2024 Basophils/100 WBC (Bld) 0.4 % 0-1 [facility] Bilirubin, totalOrdered By: [facility] aLsal on 10-06-2024 Bilirubin [Mass/Vol] 0.21 mg/dL 0.00-1.30 [facility] CBC W/Diff, Automatedon Absolute Lymph 1.06 X10 3/uL Normal 0.83-4.51 [facility] Comment on above: Performed By: #### L 100.0100, L500.4050 ####[facility] [address] [place], [address] Absolute Neut 3.5 X10 3/uL Normal 2.0-7.7 [facility] Comment on above: Performed By: #### L 100.0100, L500.4050 ####[facility] [address] [place], [address] Basophils/100 WBC (Bld) 0.4 % Normal 0-1 [facility] Comment on above: Performed By: #### L 100.0100, L500.4050 ####[facility] [address] [place], [address] Eosinophils/100 WBC (Bld) 2.6 % Normal 0-5 [facility] Comment on above: Performed By: #### L 100.0100, L500.4050 ####[facility] [address] [place], [address] Erythrocyte distribution width (RBC) [Ratio] 12.6 % Normal 11.6-14.6 [facility] Comment on above: Performed By: #### L 100.0100, L500.4050 ####[facility] [address] [place], [address] Hematocrit (Bld) [Volume fraction] 34.6 % Low 37-47 [facility] Comment on above: Performed By: #### L 100.0100, L500.4050 ####[facility] [address] [place], [address] Hemoglobin (Bld) [Mass/Vol] 11.5 g/dL Low 12.0-15.0 [facility] Comment on above: Performed By: #### L 100.0100, L500.4050 ####[facility] [address] [place], [address] IG% 0.200 Normal 0.0-0.9 [facility] Comment on above: Result Comment: IG% - Immature Granulocytes (promyelocytes, myelocytes andmetamyelocytes) > 1% indicates that a LEFT SHIFT is Present. Performed By: #### L 100.0100, L500.4050 ####[facility] [address] [place], [address] Lymphocytes/100 WBC (Bld) 20.0 % Normal 19-41 [facility] Comment on above: Performed By: #### L 100.0100, L500.4050 ####[facility] [address] [place], [address] MCH (RBC) [Entitic mass] 33.8 pg High 27.0-32.0 [facility] Comment on above: Performed By: #### L 100.0100, L500.4050 ####[facility] [address] [place], [address] MCHC (RBC) [Mass/Vol] 33.2 g/dL Normal 32-36 [facility] Comment on above: Performed By: #### L 100.0100, L500.4050 ####[facility] [address] [place], [address] MCV (RBC) [Entitic vol] 101.8 fL High 81-99 [facility] Comment on above: Performed By: #### L 100.0100, L500.4050 ####[facility] [address] [place], [address] Monocytes/100 WBC (Bld) 10.0 % Normal 0-10 [facility] Comment on above: Performed By: #### L 100.0100, L500.4050 ####[facility] [address] [place], [address] Neutrophils/100 WBC (Bld) 66.8 % Normal 47-70 [facility] Comment on above: Performed By: #### L 100.0100, L500.4050 ####[facility] [address] [place], [address] Nucleated RBC (Bld) [#/Vol] 0 10*3/uL Normal 0-5 [facility] Comment on above: Performed By: #### L 100.0100, L500.4050 ####[facility] [address] [place], [address] Platelet mean volume (Bld) [Entitic vol] 9.6 fL Normal 6.2-12.0 [facility] Comment on above: Performed By: #### L 100.0100, L500.4050 ####[facility] [address] [place], [address] Platelets (Bld) [#/Vol] 253 10*3/uL Normal 150-450 [facility] Comment on above: Performed By: #### L 100.0100, L500.4050 ####[facility] [address] [place], [address] RBC (Bld) [#/Vol] 3.40 10*6/uL Low 4.2-5.4 [facility] Comment on above: Performed By: #### L 100.0100, L500.4050 ####[facility] [address] [place], [address] RDW SD 47.5 fl High 35.1-43.9 [facility] Comment on above: Performed By: #### L 100.0100, L500.4050 ####[facility] [address] [place], [address] WBC (Bld) [#/Vol] 5.3 10*3/uL Normal 4.4-11.0 [facility] Comment on above: Performed By: #### L 100.0100, L500.4050 ####[facility] [address] [place], [address] Carbon dioxide, total [Moles /volume] in Central venous bloodOrdered By: Maxi Merlos on 10-06-2024 CO2 [Moles/Vol] 23.3 mmol/L 21.0-32.0 [facility] Chloride assayOrdered By: Maurice Merlos on 10-06-2024 Chloride [Moles/Vol] 107 mmol/L 98-108 [facility] Comprehensive Metabolic Prof ilon 10-06-2024 Albumin [Mass/Vol] 4.2 g/dL Normal 3.4-4.8 [facility] Comment on above: Performed By: #### L 100.0100, L500.4050 ####[facility] [address] [place], [address] Albumin/Globulin [Mass ratio] 1.4 {ratio} Normal 0.9-2.4 [facility] Comment on above: Performed By: #### L 100.0100, L500.4050 ####[facility] [address] [place], [address] ALK PHOS 75 U/L Normal 35-104 [facility] Comment on above: Performed By: #### L 100.0100, L500.4050 ####[facility] [address] [place], [address] ALT [Catalytic activity/Vol] 14 U/L Normal <=34 [facility] Comment on above: Performed By: #### L 100.0100, L500.4050 ####[facility] [address] [place], [address] AST [Catalytic activity/Vol] 18 U/L Normal <=31 [facility] Comment on above: Performed By: #### L 100.0100, L500.4050 ####[facility] [address] [place], [address] Bilirubin [Mass/Vol] 0.21 mg/dL Normal 0.00-1.30 [facility] Comment on above: Performed By: #### L 100.0100, L500.4050 ####[facility] [address] [place], [address] BUN/CRE 28.4 RATIO High 10-20 [facility] Comment on above: Performed By: #### L 100.0100, L500.4050 ####[facility] [address] [place], [address] Calcium [Mass/Vol] 10.0 mg/dL Normal 7.6-11.0 [facility] Comment on above: Performed By: #### L 100.0100, L500.4050 ####[facility] [address] [place], [address] Chloride [Moles/Vol] 107 mmol/L Normal 98-108 [facility] Comment on above: Performed By: #### L 100.0100, L500.4050 ####[facility] [address] [place], [address] CO2 [Moles/Vol] 23.3 mmol/L Normal 21.0-32.0 [facility] Comment on above: Performed By: #### L 100.0100, L500.4050 ####[facility] [address] [place], [address] Creatinine [Mass/Vol] 0.90 mg/dL Normal 0.70-1.20 [facility] Comment on above: Performed By: #### L 100.0100, L500.4050 ####[facility] [address] [place], [address] ECRCL 63.02 ml/min Normal 50-250 [facility] Comment on above: Performed By: #### L 100.0100, L500.4050 ####[facility] [address] [place], [address] GAP 12 Normal 5-15 [facility] Comment on above: Performed By: #### L 100.0100, L500.4050 ####[facility] [address] [place], [address] GFR/1.73 sq M.predicted among non-blacks MDRD (S/P/Bld) [Vol rate/Area] 69 mL/min/{1.73_m2} Normal >60 [facility] Comment on above: Result Comment: mL/m in/1.73m2 CKD-EPI Creatinine Equation (2020) Performed By: #### L 100.0100, L500.4050 ####[facility] [address] [place], [address] Globulin (S) [Mass/Vol] 3.1 g/dL Normal 2.2-4.2 [facility] Comment on above: Performed By: #### L 100.0100, L500.4050 ####[facility] [address] [place], [address] Glucose [Mass/Vol] 150 mg/dL High 70-99 [facility] Comment on above: Performed By: #### L 100.0100, L500.4050 ####[facility] [address] [place], [address] Potassium [Moles/Vol] 4.3 mmol/L Normal 3.3-5.1 [facility] Comment on above: Performed By: #### L 100.0100, L500.4050 ####[facility] [address] [place], [address] Sodium [Moles/Vol] 142 mmol/L Normal 133-145 [facility] Comment on above: Performed By: #### L 100.0100, L500.4050 ####[facility] [address] [place], [address] T PROT 7.2 g/dL Normal 5.9-8.4 [facility] Comment on above: Performed By: #### L 100.0100, L500.4050 ####[facility] [address] [place], [address] Urea nitrogen [Mass/Vol] 26 mg/dL High 4-19 [facility] Comment on above: Performed By: #### L 100.0100, L500.4050 ####[facility] [address] [place], [address] Eosinophil percentageOrdered By: Maxi Merlos on 10-06-2024 Eosinophils/100 WBC (Bld) 2.6 % 0-5 [facility] Erythrocyte distribution wid th ratioOrdered By: Maxi Merlos on 10-06-2024 Erythrocyte distribution width (RBC) [Ratio] 12.6 % 11.6-14.6 [facility] Erythrocyte distribution wid th standard deviationOrdered By: Maxi Merlos on 10-06-2024 Erythrocyte distribution width (RBC) [Ratio] 47.5 fl High 35.1-43.9 [facility] Glomerular filtration rate ( GFR) estimation/1.73 sq m using serum, plasma, or whole bOrdered By: Maxi Merlos on 10-06-2024 GFR/1.73 sq M.predicted among non-blacks MDRD (S/P/Bld) [Vol rate/Area] 69 mL/min/{1.73_m2} >60 [facility] Comment on above: mL/min/1.73m2 CKD-EP I Creatinine Equation (2020) Hematocrit Auto (Bld) [Volum e fraction]Ordered By: Maxi Merlos on 10-06-2024 Hematocrit (Bld) [Volume fraction] 34.6 % Low 37-47 [facility] Hemoglobin measurementOrdere d By: Maxi Merlos on 10-06-2024 Hemoglobin (Bld) [Mass/Vol] 11.5 g/dL Low 12.0-15.0 [facility] Immature granulocytes/100 WB C Auto (Bld)Ordered By: Maxi Merlos on 10-06-2024 Immature granulocytes/100 WBC (Bld) 0.200 % 0.0-0.9 [facility] Comment on above: IG% - Immature Granu locytes (promyelocytes, myelocytes and metamyelocytes) > 1% indicates that a LEFT SHIFT is Present. Laboratory - Chemistry and C hemistry - challengeOrdered By: Maxi Merlos on 10-06-2024 AST [Catalytic activity/Vol] 18 U/L <32 [facility] MCV (mean corpuscular volume ) determinationOrdered By: Maxi Merlos on 10-06-2024 MCV (RBC) [Entitic vol] 101.8 fL High 81-99 [facility] Mean corpuscular hemoglobin (MCH) determinationOrdered By: Maxi Merlos on 10-06-2024 MCH (RBC) [Entitic mass] 33.8 pg High 27.0-32.0 [facility] Mean corpuscular hemoglobin concentration (MCHC) determinationOrdered By: Maxi Merlos on 10-06-2024 MCHC (RBC) [Mass/Vol] 33.2 g/dL 32-36 [facility] Mean platelet volume determi nationOrdered By: Maxi Merlos on 10-06-2024 Platelet mean volume (Bld) [Entitic vol] 9.6 fL 6.2-12.0 [facility] Monocyte percentageOrdered B y: Maxi Merlos on 10-06-2024 Monocytes/100 WBC (Bld) 10.0 % 0-10 [facility] Neutrophil percentageOrdered By: Maxi Merlos on 10-06-2024 Neutrophils/100 WBC (Bld) 66.8 % 47-70 [facility] Nucleated red blood cell per centageOrdered By: Maxi Merlos on 10-06-2024 Nucleated RBC/100 WBC (Bld) [Ratio] 0 % 0-5 [facility] Oncology Visit Reporton 05 Oncology Visit Report Normal [facility] Platelet countOrdered By: Maurice Merlos on 10-06-2024 Platelets (Bld) [#/Vol] 253 10*3/uL 150-450 [facility] Potassium measurement (mass/ volume)Ordered By: Maxi Merlos on 10-06-2024 Potassium (Unsp spec) [Mass/Vol] 4.3 mmol/L 3.3-5.1 [facility] RBC Auto (Bld) [#/Vol]Ordere d By: Maxi Merlos on 10-06-2024 RBC (Bld) [#/Vol] 3.40 10*6/uL Low 4.2-5.4 [facility] Serum creatinine measurement (mass/volume)Ordered By: Maxi Merlos on 10-06-2024 Creatinine [Mass/Vol] 0.90 mg/dL 0.70-1.20 [facility] Serum globulin measurementOr dered By: Maxi Merlos on 10-06-2024 Globulin (S) [Mass/Vol] 3.1 g/dL 2.2-4.2 [facility] Serum glucose measurement (m ass/volume)Ordered By: Maxi Merlos on 10-06-2024 Glucose [Mass/Vol] 150 mg/dL High 70-99 [facility] Serum or plasma alanine goodrich otransferase (ALT) measurementOrdered By: Maxi Merlos on 10-06-2024 ALT [Catalytic activity/Vol] 14 U/L <35 [facility] Serum or plasma albumin chacorta urement (mass/volume)Ordered By: [facility] on 10-06-2024 Albumin [Mass/Vol] 4.2 g/dL 3.4-4.8 [facility] Serum or plasma albumin/glob ulin mass ratioOrdered By: [facility] on [facility]-2024 Albumin/Globulin [Mass ratio] 1.4 {ratio} 0.9-2.4 [facility] Serum or plasma alkaline sofiya sphatase measurementOrdered By: [facility] on 10-06-2024 ALP [Catalytic activity/Vol] 75 U/L 35-104 [facility] Serum or plasma calcium chacorta urement (mass/volume)Ordered By: [facility] on 10-06-2024 Calcium [Mass/Vol] 10.0 mg/dL 7.6-11.0 [facility] Serum or plasma urea nitroge n measurement (mass/volume)Ordered By: [facility] on 10-06-2024 Urea nitrogen [Mass/Vol] 26 mg/dL High 4-19 [facility] Sodium levelOrdered By: [facility] lasha Gaurang on 10-06-2024 Sodium [Moles/Vol] 142 mmol/L 133-145 [facility] T4 Free Directon 10-06-2024 T4 FREE DIRECT 1.40 ng/dL Normal 0.76-1.46 [facility] Comment on above: Order Comment: ADD O N FROM EARLIER TODAY,THANKS Performed By: #### L 501.9520, L506.0400 ####[facility] [address] [place], [address] T4 freeOrdered By: Leighann terry on 10-06-2024 Free T4 [Mass/Vol] 1.40 ng/dL 0.76-1.46 [facility] TSH DL <= 0.005 mIU/L QnOrde red By: Leighann Arellano on 10-06-2024 TSH Qn 0.094 uIU/mL Low 0.300-4.200 [facility] Thyroid Stim Hormone (TSH)on 10-06-2024 TSH 0.094 uIU/mL Low 0.300-4.200 [facility] Comment on above: Order Comment: ADD O N FROM EARLIER TODAY,THANKS Performed By: #### L 501.9520, L506.0400 ####[facility] [address] [place], [address] Total proteinOrdered By: Vernon Tovaraide on 10-06-2024 Protein [Mass/Vol] 7.2 g/dL 5.9-8.4 [facility] White blood cell (WBC) count Ordered By: Maxi Gaurang on 10-06-2024 WBC (Bld) [#/Vol] 5.3 10*3/uL 4.4-11.0 [facility] CBC W/Diff, Automatedon 04-0 Absolute Lymph 1.06 X10 3/uL Normal 0.83-4.51 [facility] Comment on above: Performed By: #### L 100.0100, L500.4050 ####[facility] [address] [place], [address] Absolute Neut 3.6 X10 3/uL Normal 2.0-7.7 [facility] Comment on above: Performed By: #### L 100.0100, L500.4050 ####[facility] [address] [place], [address] Basophils/100 WBC (Bld) 0.5 % Normal 0-1 [facility] Comment on above: Performed By: #### L 100.0100, L500.4050 ####[facility] [address] [place], [address] Eosinophils/100 WBC (Bld) 4.9 % Normal 0-5 [facility] Comment on above: Performed By: #### L 100.0100, L500.4050 ####[facility] [address] [place], [address] Erythrocyte distribution width (RBC) [Ratio] 15.2 % High 11.6-14.6 [facility] Comment on above: Performed By: #### L 100.0100, L500.4050 ####[facility] [address] [place], [address] Hematocrit (Bld) [Volume fraction] 32.3 % Low 37-47 [facility] Comment on above: Performed By: #### L 100.0100, L500.4050 ####[facility] [address] [place], [address] Hemoglobin (Bld) [Mass/Vol] 10.3 g/dL Low 12.0-15.0 [facility] Comment on above: Performed By: #### L 100.0100, L500.4050 ####[facility] [address] [place], [address] IG% 0.200 Normal 0.0-0.9 [facility] Comment on above: Result Comment: IG% - Immature Granulocytes (promyelocytes, myelocytes andmetamyelocytes) > 1% indicates that a LEFT SHIFT is Present. Performed By: #### L 100.0100, L500.4050 ####[facility] [address] [place], [address] Lymphocytes/100 WBC (Bld) 19.3 % Normal 19-41 [facility] Comment on above: Performed By: #### L 100.0100, L500.4050 ####[facility] [address] [place], [address] MCH (RBC) [Entitic mass] 34.1 pg High 27.0-32.0 [facility] Comment on above: Performed By: #### L 100.0100, L500.4050 ####[facility] [address] [place], [address] MCHC (RBC) [Mass/Vol] 31.9 g/dL Low 32-36 [facility] Comment on above: Performed By: #### L 100.0100, L500.4050 ####[facility] [address] [place], [address] MCV (RBC) [Entitic vol] 107.0 fL High 81-99 [facility] Comment on above: Performed By: #### L 100.0100, L500.4050 ####[facility] [address] [place], [address] Monocytes/100 WBC (Bld) 9.8 % Normal 0-10 [facility] Comment on above: Performed By: #### L 100.0100, L500.4050 ####[facility] [address] [place], [address] Neutrophils/100 WBC (Bld) 65.3 % Normal 47-70 [facility] Comment on above: Performed By: #### L 100.0100, L500.4050 ####[facility] [address] [place], [address] Nucleated RBC (Bld) [#/Vol] 0 10*3/uL Normal 0-5 [facility] Comment on above: Performed By: #### L 100.0100, L500.4050 ####[facility] [address] [place], [address] Platelet mean volume (Bld) [Entitic vol] 9.7 fL Normal 6.2-12.0 [facility] Comment on above: Performed By: #### L 100.0100, L500.4050 ####[facility] [address] [place], [address] Platelets (Bld) [#/Vol] 212 10*3/uL Normal 150-450 [facility] Comment on above: Performed By: #### L 100.0100, L500.4050 ####[facility] [address] [place], [address] RBC (Bld) [#/Vol] 3.02 10*6/uL Low 4.2-5.4 [facility] Comment on above: Performed By: #### L 100.0100, L500.4050 ####[facility] [address] [place], [address] RDW SD 60.1 fl High 35.1-43.9 [facility] Comment on above: Performed By: #### L 100.0100, L500.4050 ####[facility] [address] [place], [address] WBC (Bld) [#/Vol] 5.5 10*3/uL Normal 4.4-11.0 [facility] Comment on above: Performed By: #### L 100.0100, L500.4050 ####[facility] [address] [place], [address] Comprehensive Metabolic Prof [facility] 09-08-2024 Albumin [Mass/Vol] 4.2 g/dL Normal 3.4-4.8 [facility] Comment on above: Performed By: #### L 100.0100, L500.4050 ####[facility] [address] [place], [address] Albumin/Globulin [Mass ratio] 1.5 {ratio} Normal 0.9-2.4 [facility] Comment on above: Performed By: #### L 100.0100, L500.4050 ####[facility] [address] [place], [address] ALK PHOS 69 U/L Normal 35-104 [facility] Comment on above: Performed By: #### L 100.0100, L500.4050 ####[facility] [address] [place], [address] ALT [Catalytic activity/Vol] 14 U/L Normal <=34 [facility] Comment on above: Performed By: #### L 100.0100, L500.4050 ####[facility] [address] [place], [address] AST [Catalytic activity/Vol] 18 U/L Normal <=31 [facility] Comment on above: Performed By: #### L 100.0100, L500.4050 ####[facility] [address] [place], [address] Bilirubin [Mass/Vol] 0.23 mg/dL Normal 0.00-1.30 [facility] Comment on above: Performed By: #### L 100.0100, L500.4050 ####[facility] [address] [place], [address] BUN/CRE 22.8 RATIO High 10-20 [facility] Comment on above: Performed By: #### L 100.0100, L500.4050 ####[facility] [address] [place], [address] Calcium [Mass/Vol] 9.8 mg/dL Normal 7.6-11.0 [facility] Comment on above: Performed By: #### L 100.0100, L500.4050 ####[facility] [address] [place], [address] Chloride [Moles/Vol] 104 mmol/L Normal 98-108 [facility] Comment on above: Performed By: #### L 100.0100, L500.4050 ####[facility] [address] [place], [address] CO2 [Moles/Vol] 24.3 mmol/L Normal 21.0-32.0 [facility] Comment on above: Performed By: #### L 100.0100, L500.4050 ####[facility] [address] [place], [address] Creatinine [Mass/Vol] 0.74 mg/dL Normal 0.70-1.20 [facility] Comment on above: Performed By: #### L 100.0100, L500.4050 ####[facility] [address] [place], [address] ECRCL 70.18 ml/min Normal 50-250 [facility] Comment on above: Performed By: #### L 100.0100, L500.4050 ####[facility] [address] [place], [address] GAP 11 Normal 5-15 [facility] Comment on above: Performed By: #### L 100.0100, L500.4050 ####[facility] [address] [place], [address] GFR/1.73 sq M.predicted among non-blacks MDRD (S/P/Bld) [Vol rate/Area] 87 mL/min/{1.73_m2} Normal >60 [facility] Comment on above: Result Comment: mL/m in/1.73m2 CKD-EPI Creatinine Equation (2020) Performed By: #### L 100.0100, L500.4050 ####[facility] [address] [place], [address] Globulin (S) [Mass/Vol] 2.7 g/dL Normal 2.2-4.2 [facility] Comment on above: Performed By: #### L 100.0100, L500.4050 ####[facility] [address] [place], [address] Glucose [Mass/Vol] 105 mg/dL High 70-99 [facility] Comment on above: Performed By: #### L 100.0100, L500.4050 ####[facility] [address] [place], [address] Potassium [Moles/Vol] 4.1 mmol/L Normal 3.3-5.1 [facility] Comment on above: Performed By: #### L 100.0100, L500.4050 ####[facility] [address] [place], [address] Sodium [Moles/Vol] 139 mmol/L Normal 133-145 [facility] Comment on above: Performed By: #### L 100.0100, L500.4050 ####[facility] [address] [place], [address] T PROT 6.9 g/dL Normal 5.9-8.4 [facility] Comment on above: Performed By: #### L 100.0100, L500.4050 ####[facility] [address] [place], [address] Urea nitrogen [Mass/Vol] 17 mg/dL Normal 4-19 [facility] Comment on above: Performed By: #### L 100.0100, L500.4050 ####[facility] [address] [place], [address] Oncology Visit Reporton Oncology Visit Report Normal [facility] CBC W/Diff, Automatedon 0 PATH REV N/A Normal [facility] Comment on above: Order Comment: A MENDED REPORT 08/09/241435 NEUT% previously reported as: 70.7 H % AMENDED REPORT 08/09/241435 LY% previously reported as: 10.4 L % AMENDED REPORT 08/09/241435 MONO% previously reported as: 9.9 % AMENDED REPORT 08/09/241435 EO% previously reported as: 0.1 % AMENDED REPORT 08/09/241436 BASO% previously reported as: 0.9 %IG% - Immature Granulocytes (promyelocytes, myelocytes andmetamyelocytes) > 1% indicates that a LEFT SHIFT is Present. AMENDED REPORT 08/09/241436 IM GRAN % previously reported as: 8.000 H % AMENDED REPORT 08/09/24 1437 NRBC, FLAGGED previously reported as: 0.2 % Result Comment: AMENDED REPORT 09/05/24 1819 PATH REV previously reported as: Ekaterina rivas Performed By: #### L 500.2500, L501.5200, L100.0100, L501.2300 ####[facility] [address] [place], [address] Oncology Visit Reporton 08-02 Oncology Visit Report Normal [facility] Blood polychromasia detectio n by light microscopyOrdered By: Maxi Merlos on 08-25-2024 Polychromasia LM Ql (Bld) RARE [facility] CBC W/Diff, Automatedon 08-01 PLT MORPH LARGE Normal [facility] Comment on above: Order Comment: ADD O N TO BW IN LAB Performed By: #### L 506.0400, L100.0100, L501.9520, L500.4050 ####[facility] [address] [place], [address] POLYCHROMASIA RARE Normal [facility] Comment on above: Order Comment: ADD O N TO BW IN LAB Performed By: #### L 506.0400, L100.0100, L501.9520, L500.4050 ####[facility] [address] [place], [address] Anisocytosis Ql (Bld) 1+ Normal [facility] Comment on above: Order Comment: ADD O N TO BW IN LAB Performed By: #### L 506.0400, L100.0100, L501.9520, L500.4050 ####[facility] [address] [place], [address] Comprehensive Metabolic Prof ilon 08-25-2024 Albumin [Mass/Vol] 4.0 g/dL Normal 3.4-4.8 [facility] Comment on above: Order Comment: ADD O N TO BW IN LAB Performed By: #### L 506.0400, L100.0100, L501.9520, L500.4050 ####[facility] [address] [place], [address] Albumin/Globulin [Mass ratio] 1.5 {ratio} Normal 0.9-2.4 [facility] Comment on above: Order Comment: ADD O N TO BW IN LAB Performed By: #### L 506.0400, L100.0100, L501.9520, L500.4050 ####[facility] [address] [place], [address] ALK PHOS 72 U/L Normal 35-104 [facility] Comment on above: Order Comment: ADD O N TO BW IN LAB Performed By: #### L 506.0400, L100.0100, L501.9520, L500.4050 ####[facility] [address] [place], [address] ALT [Catalytic activity/Vol] 15 U/L Normal <=34 [facility] Comment on above: Order Comment: ADD O N TO BW IN LAB Performed By: #### L 506.0400, L100.0100, L501.9520, L500.4050 ####[facility] [address] [place], [address] AST [Catalytic activity/Vol] 20 U/L Normal <=31 [facility] Comment on above: Order Comment: ADD O N TO BW IN LAB Performed By: #### L 506.0400, L100.0100, L501.9520, L500.4050 ####[facility] [address] [place], [address] Bilirubin [Mass/Vol] 0.25 mg/dL Normal 0.00-1.30 [facility] Comment on above: Order Comment: ADD O N TO BW IN LAB Performed By: #### L 506.0400, L100.0100, L501.9520, L500.4050 ####[facility] [address] [place], [address] BUN/CRE 27.6 RATIO High 10-20 [facility] Comment on above: Order Comment: ADD O N TO BW IN LAB Performed By: #### L 506.0400, L100.0100, L501.9520, L500.4050 ####[facility] [address] [place], [address] Calcium [Mass/Vol] 9.2 mg/dL Normal 7.6-11.0 [facility] Comment on above: Order Comment: ADD O N TO BW IN LAB Performed By: #### L 506.0400, L100.0100, L501.9520, L500.4050 ####[facility] [address] [place], [address] Chloride [Moles/Vol] 107 mmol/L Normal 98-108 [facility] Comment on above: Order Comment: ADD O N TO BW IN LAB Performed By: #### L 506.0400, L100.0100, L501.9520, L500.4050 ####[facility] [address] [place], [address] CO2 [Moles/Vol] 23.7 mmol/L Normal 21.0-32.0 [facility] Comment on above: Order Comment: ADD O N TO BW IN LAB Performed By: #### L 506.0400, L100.0100, L501.9520, L500.4050 ####[facility] [address] [place], [address] Creatinine [Mass/Vol] 0.66 mg/dL Low 0.70-1.20 [facility] Comment on above: Order Comment: ADD O N TO BW IN LAB Performed By: #### L 506.0400, L100.0100, L501.9520, L500.4050 ####[facility] [address] [place], [address] ECRCL 69.54 ml/min Normal 50-250 [facility] Comment on above: Order Comment: ADD O N TO BW IN LAB Performed By: #### L 506.0400, L100.0100, L501.9520, L500.4050 ####[facility] [address] [place], [address] GAP 11 Normal 5-15 [facility] Comment on above: Order Comment: ADD O N TO BW IN LAB Performed By: #### L 506.0400, L100.0100, L501.9520, L500.4050 ####[facility] [address] [place], [address] GFR/1.73 sq M.predicted among non-blacks MDRD (S/P/Bld) [Vol rate/Area] 94 mL/min/{1.73_m2} Normal >60 [facility] Comment on above: Order Comment: ADD O N TO BW IN LAB Result Comment: mL/m in/1.73m2 CKD-EPI Creatinine Equation (2020) Performed By: #### L 506.0400, L100.0100, L501.9520, L500.4050 ####[facility] [address] [place], [address] Globulin (S) [Mass/Vol] 2.7 g/dL Normal 2.2-4.2 [facility] Comment on above: Order Comment: ADD O N TO BW IN LAB Performed By: #### L 506.0400, L100.0100, L501.9520, L500.4050 ####[facility] [address] [place], [address] Glucose [Mass/Vol] 101 mg/dL High 70-99 [facility] Comment on above: Order Comment: ADD O N TO BW IN LAB Performed By: #### L 506.0400, L100.0100, L501.9520, L500.4050 ####[facility] [address] [place], [address] Potassium [Moles/Vol] 4.2 mmol/L Normal 3.3-5.1 [facility] Comment on above: Order Comment: ADD O N TO BW IN LAB Performed By: #### L 506.0400, L100.0100, L501.9520, L500.4050 ####[facility] [address] [place], [address] Sodium [Moles/Vol] 141 mmol/L Normal 133-145 [facility] Comment on above: Order Comment: ADD O N TO BW IN LAB Performed By: #### L 506.0400, L100.0100, L501.9520, L500.4050 ####[facility] [address] [place], [address] T PROT 6.8 g/dL Normal 5.9-8.4 [facility] Comment on above: Order Comment: ADD O N TO BW IN LAB Performed By: #### L 506.0400, L100.0100, L501.9520, L500.4050 ####[facility] [address] [place], [address] Urea nitrogen [Mass/Vol] 18 mg/dL Normal 4-19 [facility] Comment on above: Order Comment: ADD O N TO BW IN LAB Performed By: #### L 506.0400, L100.0100, L501.9520, L500.4050 ####[facility] [address] [place], [address] Laboratory - Hematology and Cell countsOrdered By: Maxi Merlos on 08-25-2024 Anisocytosis Ql (Bld) 1+ [facility] Oncology Visit Reporton 08-01 Oncology Visit Report Normal [facility] Platelet morphologyOrdered B y: Maxi Merlos on 08-25-2024 Platelet morphology finding Nom (Bld) LARGE [facility] Surgery Visit Reporton 08-25 Surgery Visit Report Normal [facility] T4 Free Directon 08-25-2024 T4 FREE DIRECT 1.40 ng/dL Normal 0.76-1.46 [facility] Comment on above: Order Comment: ADD O N TO BW IN LAB Performed By: #### L 506.0400, L100.0100, L501.9520, L500.4050 ####[facility] [address] [place], [address] Thyroid Stim Hormone (TSH)on 08-25-2024 TSH 0.345 uIU/mL Normal 0.300-4.200 [facility] Comment on above: Order Comment: ADD O N TO BW IN LAB Performed By: #### L 506.0400, L100.0100, L501.9520, L500.4050 ####[facility] [address] [place], [address] Type AND Screenon 08-25-2024 A1 CELL Not performed Normal [facility] Comment on above: Order Comment: A Result Comment: TYPE AND SCREEN TO BE ORDERED ONLY IF A TRANSFUSION OF BLOODOR BLOOD COMPONENTS ARE REQUIRED SO NOT TO CHARGE THEPATIENT FOR TESTING UNNECESSARILY. Performed By: #### B TS ####[facility] [address] [place], [address] Ab SCREEN GEL Not performed Normal [facility] Comment on above: Order Comment: A Result Comment: TYPE AND SCREEN TO BE ORDERED ONLY IF A TRANSFUSION OF BLOODOR BLOOD COMPONENTS ARE REQUIRED SO NOT TO CHARGE THEPATIENT FOR TESTING UNNECESSARILY. Performed By: #### B TS ####[facility] [address] [place], [address] ABO and Rh group Nom (Bld) Test Not Performed Normal [facility] Comment on above: Order Comment: A Result Comment: TYPE AND SCREEN TO BE ORDERED ONLY IF A TRANSFUSION OF BLOODOR BLOOD COMPONENTS ARE REQUIRED SO NOT TO CHARGE THEPATIENT FOR TESTING UNNECESSARILY. Performed By: #### B TS ####[facility] [address] [place], [address] ANTI A Not performed Normal [facility] Comment on above: Order Comment: A Result Comment: TYPE AND SCREEN TO BE ORDERED ONLY IF A TRANSFUSION OF BLOODOR BLOOD COMPONENTS ARE REQUIRED SO NOT TO CHARGE THEPATIENT FOR TESTING UNNECESSARILY. Performed By: #### B TS ####[facility] [address] [place], [address] ANTI B Not performed Normal [facility] Comment on above: Order Comment: A Result Comment: TYPE AND SCREEN TO BE ORDERED ONLY IF A TRANSFUSION OF BLOODOR BLOOD COMPONENTS ARE REQUIRED SO NOT TO CHARGE THEPATIENT FOR TESTING UNNECESSARILY. Performed By: #### B TS ####[facility] [address] [place], [address] ANTI D Not performed Normal [facility] Comment on above: Order Comment: A Result Comment: TYPE AND SCREEN TO BE ORDERED ONLY IF A TRANSFUSION OF BLOODOR BLOOD COMPONENTS ARE REQUIRED SO NOT TO CHARGE THEPATIENT FOR TESTING UNNECESSARILY. Performed By: #### B TS ####[facility] [address] [place], [address] B CELLS Not performed Normal [facility] Comment on above: Order Comment: A Result Comment: TYPE AND SCREEN TO BE ORDERED ONLY IF A TRANSFUSION OF BLOODOR BLOOD COMPONENTS ARE REQUIRED SO NOT TO CHARGE THEPATIENT FOR TESTING UNNECESSARILY. Performed By: #### B TS ####[facility] [address] [place], [address] CT Chest AND Abd W/ Contrast on 08-23-2024 CT Chest AND Abd W/ Contrast Normal [facility] Absolute neutrophil countOrd ered By: Maxi Merlos on 08-18-2024 Absolute neutrophil count 3.0 X10^3/uL 2.0-7.7 [facility] Anion gap [Moles/Vol]Ordered By: Maxi Merlos on 08-18-2024 Anion gap in Serum or Plasma 12 5-15 [facility] BUN/creatinine ratioOrdered By: Maxi Merlos on 08-18-2024 BUN/creatinine ratio 19.2 RATIO 10-20 [facility] Basic Metabolic Profile (BMP )on 08-18-2024 BUN/CRE 19.2 RATIO Normal 10-20 [facility] Comment on above: Performed By: #### L 501.5200, L500.2500, L501.2300, L100.0100 ####[facility] [address] [place], [address] Calcium [Mass/Vol] 9.2 mg/dL Normal 7.6-11.0 [facility] Comment on above: Performed By: #### L 501.5200, L500.2500, L501.2300, L100.0100 ####[facility] [address] [place], [address] Chloride [Moles/Vol] 104 mmol/L Normal 98-108 [facility] Comment on above: Performed By: #### L 501.5200, L500.2500, L501.2300, L100.0100 ####[facility] [address] [place], [address] CO2 [Moles/Vol] 23.1 mmol/L Normal 21.0-32.0 [facility] Comment on above: Performed By: #### L 501.5200, L500.2500, L501.2300, L100.0100 ####[facility] [address] [place], [address] Creatinine [Mass/Vol] 0.66 mg/dL Low 0.70-1.20 [facility] Comment on above: Performed By: #### L 501.5200, L500.2500, L501.2300, L100.0100 ####[facility] [address] [place], [address] ECRCL 69.35 ml/min Normal 50-250 [facility] Comment on above: Performed By: #### L 501.5200, L500.2500, L501.2300, L100.0100 ####[facility] [address] [place], [address] GAP 12 Normal 5-15 [facility] Comment on above: Performed By: #### L 501.5200, L500.2500, L501.2300, L100.0100 ####[facility] [address] [place], [address] GFR/1.73 sq M.predicted among non-blacks MDRD (S/P/Bld) [Vol rate/Area] 94 mL/min/{1.73_m2} Normal >60 [facility] Comment on above: Result Comment: mL/m in/1.73m2 CKD-EPI Creatinine Equation (2020) Performed By: #### L 501.5200, L500.2500, L501.2300, L100.0100 ####[facility] [address] [place], [address] Glucose [Mass/Vol] 107 mg/dL High 70-99 [facility] Comment on above: Performed By: #### L 501.5200, L500.2500, L501.2300, L100.0100 ####[facility] [address] [place], [address] Potassium [Moles/Vol] 4.1 mmol/L Normal 3.3-5.1 [facility] Comment on above: Performed By: #### L 501.5200, L500.2500, L501.2300, L100.0100 ####[facility] [address] [place], [address] Sodium [Moles/Vol] 139 mmol/L Normal 133-145 [facility] Comment on above: Performed By: #### L 501.5200, L500.2500, L501.2300, L100.0100 ####[facility] [address] [place], [address] Urea nitrogen [Mass/Vol] 13 mg/dL Normal - [facility] Comment on above: Performed By: #### L 501.5200, L500.2500, L501.2300, L100.0100 ####[facility] [address] [place], [address] Basophil percentageOrdered B y: Maxi Merlos on 08-18-2024 Basophil percentage 0.2 % 0-1 [facility] Blood manual differential co mment interpretation (narrative result)Ordered By: Maxi Merlos on 08-18-2024 Manual differential comment [place] (Bld) [Interp] SCANNED [facility] CBC W/Diff, Automatedon 07-31 Anisocytosis Ql (Bld) 2+ Normal [facility] Comment on above: Performed By: #### L 501.5200, L500.2500, L501.2300, L100.0100 ####[facility] [address] [place], [address] POLYCHROMASIA 1+ Normal [facility] Comment on above: Performed By: #### L 501.5200, L500.2500, L501.2300, L100.0100 ####[facility] [address] [place], [address] SMEAR COMMENT SCANNED Normal [facility] Comment on above: Performed By: #### L 501.5200, L500.2500, L501.2300, L100.0100 ####[facility] [address] [place], [address] Calcium [Mass/Vol]Ordered By : Maxi Merlos on 08-18-2024 Serum or plasma calcium measurement (mass/volume) 9.2 mg/dL 7.6-11.0 [facility] Carbon dioxide, total [Moles /volume] in Central venous bloodOrdered By: Maxi Merlos on 08-18-2024 Carbon dioxide, total [Moles/volume] in Central venous blood 23.1 mmol/L 21.0-32.0 [facility] Chloride assayOrdered By: Maurice Merlos on 08-18-2024 Chloride assay 104 mmol/L 98-108 [facility] Creatinine [Mass/Vol]Ordered By: Maxi Merlos on 08-18-2024 Serum creatinine measurement (mass/volume) 0.66 mg/dL Low 0.70-1.20 [facility] Eosinophil percentageOrdered By: Maxi Merlos on 08-18-2024 Eosinophil percentage 0.4 % 0-5 [facility] Erythrocyte distribution wid th (RBC) [Entitic vol]Ordered By: [facility] 08-18-[facility]24 Erythrocyte distribution width standard deviation 65.1 fl High 35.1-43.9 [facility] Erythrocyte distribution wid th (RBC) [Ratio]Ordered By: Maxi Merlos on 08-18-2024 Erythrocyte distribution width ratio 19.1 % High 11.6-14.6 [facility] Estimation of creatinine jaswinder aranceOrdered By: Maxi Merlos on 08-18-2024 Estimation of creatinine clearance 69.35 ml/min 50-250 [facility] GFR/1.73 sq M.predicted marty g non-blacks MDRD (S/P/Bld) [Vol rate/Area]Ordered By: Maxi Merlos on 08-18-2024 Glomerular filtration rate (GFR) estimation/1.73 sq m using serum, plasma, or whole b 94 >60 [facility] Glucose [Mass/Vol]Ordered By : Maxi Merlos on 08-18-2024 Serum glucose measurement (mass/volume) 107 mg/dL High 70-99 [facility] Hematocrit Auto (Bld) [Volum e fraction]Ordered By: Maxi Merlos on 08-18-2024 Automated blood hematocrit (percentage) 24.4 % Low 37-47 [facility] Hemoglobin measurementOrdere d By: Maxi Merlos on 08-18-2024 Hemoglobin measurement 7.9 g/dL Low 12.0-15.0 [facility] Immature granulocytes/100 WB C Auto (Bld)Ordered By: Maxi Merlos on 08-18-2024 Automated immature granulocyte percentage 0.800 % 0.0-0.9 [facility] Lymphocytes Auto (Unsp spec) [#/Vol]Ordered By: Maxi Merlos on 08-18-2024 Absolute lymphocyte count 1.25 X10^3/uL 0.83-4.51 [facility] Lymphocytes/100 WBC Auto (Un sp spec)Ordered By: Maxi Merlos on 08-18-2024 Automated lymphocyte count as percentage of total leukocytes 23.9 % [facility] MCV (RBC) [Entitic vol]Order ed By: Maxi Merlos on 08-18-2024 MCV (mean corpuscular volume) determination 102.5 fL High 81-99 [facility] Magnesiumon 08-18-2024 Magnesium [Mass/Vol] 1.9 mg/dL Normal 1.5-2.2 [facility] Comment on above: Performed By: #### L 501.5200, L500.2500, L501.2300, L100.0100 ####[facility] [address] [place], [id number] Magnesium (Unsp spec) [Mass/ Vol]Ordered By: Maxi Merlos on 08-18-2024 Magnesium measurement (mass/volume) 1.9 mg/dL 1.5-2.2 [facility] Magnesium measurement (mass/ volume)Ordered By: Maxi Merlos on 08-18-2024 Magnesium (Unsp spec) [Mass/Vol] 1.9 mg/dL 1.5-2.2 [facility] Manual differential comment [place] (Bld) [Interp]Ordered By: Maxi Merlos on 08-18-2024 Blood manual differential comment interpretation (narrative result) SCANNED [facility] Mean corpuscular hemoglobin (MCH) determinationOrdered By: Maxi Merlos on 08-18-2024 Mean corpuscular hemoglobin (MCH) determination 33.2 pg High 27.0-32.0 [facility] Mean corpuscular hemoglobin concentration (MCHC) determinationOrdered By: Maxi Merlos on 08-18-2024 Mean corpuscular hemoglobin concentration (MCHC) determination 32.4 g/dL 32-36 [facility] Mean platelet volume determi nationOrdered By: Maxi Merlos on 08-18-2024 Mean platelet volume determination 10.2 fl 6.2-12.0 [facility] Monocyte percentageOrdered B y: Maxi Merlos on 08-18-2024 Monocyte percentage 16.9 % High 0-10 [facility] Neutrophil percentageOrdered By: Maxi Merlos on 08-18-2024 Neutrophil percentage 57.8 % 47-70 [facility] No Panel InformationOrdered By: Maxi Merlos on 08-18-2024 2+ [facility] Oncology Visit Reporton 07-31 Oncology Visit Report Normal [facility] Phosphoruson 08-18-2024 Phosphate [Mass/Vol] 2.6 mg/dL Low 2.7-4.5 [facility] Comment on above: Performed By: #### L 501.5200, L500.2500, L501.2300, L100.0100 ####[facility] [address] [place], [address] Platelet countOrdered By: Maurice Merlos on 08-18-2024 Platelet count 244 K/mm3 150-450 [facility] Polychromasia LM Ql (Bld)Ord ered By: Maxi Merlos on 08-18-2024 Blood polychromasia detection by light microscopy 1+ [facility] Potassium (Unsp spec) [Mass/ Vol]Ordered By: Maxi Merlos on 08-18-2024 Potassium measurement (mass/volume) 4.1 mmol/L 3.3-5.1 [facility] RBC Auto (Bld) [#/Vol]Ordere d By: Maxi Merlos on 08-18-2024 Automated blood erythrocyte count 2.38 M/mm3 Low 4.2-5.4 [facility] Serum phosphorus measurement Ordered By: Maxi Merlos on 08-18-2024 Serum phosphorus measurement 2.6 mg/dL Low 2.7-4.5 [facility] Sodium levelOrdered By: Humberto Merlos on 08-18-2024 Sodium level 139 mmol/L 133-145 [facility] Urea nitrogen [Mass/Vol]Orde red By: Maxi Merlos on 08-18-2024 Serum or plasma urea nitrogen measurement (mass/volume) 13 mg/dL 09-18 [facility] White blood cell (WBC) count Ordered By: Maxi Merlos on 08-18-2024 White blood cell (WBC) count 5.2 K/mm3 4.4-11.0 [facility] Pulmonary Visit Reporton Pulmonary Visit Report Normal [facility] Radiation Oncology Visiton 0 08-12-2024 Radiation Oncology Visit Normal [facility] Brain W/WO Contraston 2024 Brain W/WO Contrast Normal [facility] Magnetic resonance imaging r eportOrdered By: Rodri Taylor on 08-10-2024 Study report [facility] Basic Metabolic Profile (BMP )on 08-09-2024 BUN/CRE 15.7 RATIO Normal - [facility] Comment on above: Performed By: #### L 500.2500, L501.5200, L100.0100, L501.2300 ####[facility] [address] [place], [address] Calcium [Mass/Vol] 9.5 mg/dL Normal 7.6-11.0 [facility] Comment on above: Performed By: #### L 500.2500, L501.5200, L100.0100, L501.2300 ####[facility] [address] [place], [address] Chloride [Moles/Vol] 106 mmol/L Normal 98-108 [facility] Comment on above: Performed By: #### L 500.2500, L501.5200, L100.0100, L501.2300 ####[facility] [address] [place], [address] CO2 [Moles/Vol] 21.8 mmol/L Normal 21.0-32.0 [facility] Comment on above: Performed By: #### L 500.2500, L501.5200, L100.0100, L501.2300 ####[facility] [address] [place], [address] Creatinine [Mass/Vol] 0.77 mg/dL Normal 0.70-1.20 [facility] Comment on above: Performed By: #### L 500.2500, L501.5200, L100.0100, L501.2300 ####[facility] [address] [place], [address] ECRCL 69.42 ml/min Normal 50-250 [facility] Comment on above: Performed By: #### L 500.2500, L501.5200, L100.0100, L501.2300 ####[facility] [address] [place], [address] GAP 14 Normal 5-15 [facility] Comment on above: Performed By: #### L 500.2500, L501.5200, L100.0100, L501.2300 ####[facility] [address] [place], [address] GFR/1.73 sq M.predicted among non-blacks MDRD (S/P/Bld) [Vol rate/Area] 83 mL/min/{1.73_m2} Normal >60 [facility] Comment on above: Result Comment: mL/m in/1.73m2 CKD-EPI Creatinine Equation (2020) Performed By: #### L 500.2500, L501.5200, L100.0100, L501.2300 ####[facility] [address] [place], [address] Glucose [Mass/Vol] 116 mg/dL High 70-99 [facility] Comment on above: Performed By: #### L 500.2500, L501.5200, L100.0100, L501.2300 ####[facility] [address] [place], [address] Potassium [Moles/Vol] 3.4 mmol/L Normal 3.3-5.1 [facility] Comment on above: Performed By: #### L 500.2500, L501.5200, L100.0100, L501.2300 ####[facility] [address] [place], [address] Sodium [Moles/Vol] 142 mmol/L Normal 133-145 [facility] Comment on above: Performed By: #### L 500.2500, L501.5200, L100.0100, L501.2300 ####[facility] [address] [place], [address] Urea nitrogen [Mass/Vol] 12 mg/dL Normal 4-19 [facility] Comment on above: Performed By: #### L 500.2500, L501.5200, L100.0100, L501.2300 ####[facility] [address] [place], [address] Blood band neutrophil count as percentage of total leukocytesOrdered By: Maxi Merlos on 08-09-2024 Band form neutrophils/100 WBC (Bld) 2 % 0-5 [facility] Blood band neutrophil count as percentage of total leukocytes 2 % High 0-0 [facility] Blood blasts/100 leukocytesO rdered By: Maxi Merlos on 08-09-2024 Blasts/100 WBC (Bld) 2 % High 0-0 [facility] Blood lymphocytes/100 leukoc ytesOrdered By: Maxi Tovarkarus on 08-09-2024 Lymphocytes/100 WBC (Bld) 4 % Low 19-41 [facility] Blood monocytes/100 leukocyt esOrdered By: Maxi Tovarkarus on 08-09-2024 Monocytes/100 WBC (Bld) 3 % 0-10 [facility] Blood promyelocytes/100 leuk ocytesOrdered By: Maxi Tovarkarus on 08-09-2024 Promyelocytes/100 WBC (Bld) 1 % High 0-0 [facility] Blood segmented neutrophils/ 100 leukocytesOrdered By: Maxi Gillisus on 08-09-2024 Segmented neutrophils/100 WBC (Bld) 84 % High 47-70 [facility] Cells counted Molgen (Bld/Ti ss) [#]Ordered By: Maxi Merlos on 08-09-2024 Total cell count 100 MANUAL DIFF [facility] Magnesiumon 08-09-2024 Magnesium [Mass/Vol] 1.1 mg/dL Low 1.5-2.2 [facility] Comment on above: Performed By: #### L 500.2500, L501.5200, L100.0100, L501.2300 ####[facility] [address] [place], [place], [id number] Monocytes/100 WBC (Bld)Order ed By: Maxi Merlos on 08-09-2024 Blood monocytes/100 leukocytes 3 % 0-10 [facility] Myelocyte %Ordered By: Wade Merlos on 08-09-2024 Myelocytes/100 WBC (Bld) 4 % High 0-0 [facility] Myelocyte % 4 % Low 19-41 [facility] Oncology Visit Reporton 07-31 Oncology Visit Report Normal [facility] Ovalocyte detectionOrdered B y: Maxi Merlos on 08-09-2024 Ovalocytes LM Ql (Bld) 1+ [facility] Ovalocytes LM Ql (Bld)Ordere d By: Maxi Merlos on 08-09-2024 Ovalocyte detection 1+ [facility] Pathologist review [place] (Unsp spec) [Interp]Ordered By: Maxi Merlos on 08-09-2024 Review by pathologist Ekaterina rivas [facility] Phosphoruson 08-09-2024 Phosphate [Mass/Vol] 1.9 mg/dL Low 2.7-4.5 [facility] Comment on above: Performed By: #### L 500.2500, L501.5200, L100.0100, L501.2300 ####[facility] [address] [place], [place], [id number] Promyelocytes/100 WBC (Bld)O rdered By: Maxi Merlos on 08-09-2024 Blood promyelocytes/100 leukocytes 1 % High 0-0 [facility] Review by pathologistOrdered By: Maxi Merlos on 08-09-2024 Pathologist review [place] (Unsp spec) [Interp] N/A [facility] Comment on above: Previous reported re sult: Ekaterina rob Edited by: EVELIO on 09/05/24:1818 AMENDED REPORT 09/05/241818 PATH REV previously reported as: Ekaterina rivas Segmented neutrophils/100 WB C (Bld)Ordered By: Maxi Merlos on 08-09-2024 Blood segmented neutrophils/100 leukocytes 84 % High 47-70 [facility] Total cell countOrdered By: [facility] on 08-09-2024 Cells counted Molgen (Bld/Tiss) [#] 100 MANUAL DIFF [facility] Toxic granules LM Ql (Bld)Or dered By: Maxi Merlos on 08-09-2024 Toxic leukocyte granulation detection 2+ [facility] Toxic leukocyte granulation detectionOrdered By: [facility] on 08-09-2024 Toxic granules LM Ql (Bld) 2+ [facility] Basic Metabolic Profile (BMP )on 08-02-2024 Anion gap [Moles/Vol] 12 mmol/L Normal 5-15 [facility] Comment on above: Performed By: #### L 501.5200, L501.2300, L100.0100, L500.2500 ####[facility] [address] [place], [address] BUN/CRE 39.7 RATIO High 10-20 [facility] Comment on above: Performed By: #### L 501.5200, L501.2300, L100.0100, L500.2500 ####[facility] [address] [place], [address] Calcium [Mass/Vol] 9.3 mg/dL Normal 7.6-11.0 [facility] Comment on above: Performed By: #### L 501.5200, L501.2300, L100.0100, L500.2500 ####[facility] [address] [place], [address] Chloride [Moles/Vol] 103 mmol/L Normal 96-108 [facility] Comment on above: Performed By: #### L 501.5200, L501.2300, L100.0100, L500.2500 ####[facility] [address] [place], [address] CO2 [Moles/Vol] 21.0 mmol/L Low 22.0-29.0 [facility] Comment on above: Performed By: #### L 501.5200, L501.2300, L100.0100, L500.2500 ####[facility] [address] [place], [address] Creatinine [Mass/Vol] 0.57 mg/dL Low 0.70-1.20 [facility] Comment on above: Performed By: #### L 501.5200, L501.2300, L100.0100, L500.2500 ####[facility] [address] [place], [address] ECRCL 69.47 ml/min Normal 50-250 [facility] Comment on above: Performed By: #### L 501.5200, L501.2300, L100.0100, L500.2500 ####[facility] [address] [place], [address] GFR/1.73 sq M.predicted among non-blacks MDRD (S/P/Bld) [Vol rate/Area] 98 mL/min/{1.73_m2} Normal >60 [facility] Comment on above: Result Comment: mL/m in/1.73m2 CKD-EPI Creatinine Equation (2020) Performed By: #### L 501.5200, L501.2300, L100.0100, L500.2500 ####[facility] [address] [place], [address] Glucose [Mass/Vol] 129 mg/dL High 70-99 [facility] Comment on above: Performed By: #### L 501.5200, L501.2300, L100.0100, L500.2500 ####[facility] [address] [place], [address] Potassium [Moles/Vol] 3.8 mmol/L Normal 3.3-5.1 [facility] Comment on above: Performed By: #### L 501.5200, L501.2300, L100.0100, L500.2500 ####[facility] [address] [place], [address] Sodium [Moles/Vol] 137 mmol/L Normal 133-145 [facility] Comment on above: Performed By: #### L 501.5200, L501.2300, L100.0100, L500.2500 ####[facility] [address] [place], [address] Urea nitrogen [Mass/Vol] 23 mg/dL High 4-19 [facility] Comment on above: Performed By: #### L 501.5200, L501.2300, L100.0100, L500.2500 ####[facility] [address] [place], [address] CBC W/Diff, Automatedon 03-0 3-2024 Absolute Lymph 0.70 X10 3/uL Low 0.83-4.51 [facility] Comment on above: Performed By: #### L 501.5200, L501.2300, L100.0100, L500.2500 ####[facility] [address] [place], [address] Absolute Neut 1.6 X10 3/uL Low 2.0-7.7 [facility] Comment on above: Performed By: #### L 501.5200, L501.2300, L100.0100, L500.2500 ####[facility] [address] [place], [address] Chloride measurementOrdered By: Maxi Merlos on 08-02-2024 Chloride [Moles/Vol] 103 mmol/L 96-108 [facility] Chloride measurement 103 mmol/L 96-108 [facility] Magnesiumon 08-02-2024 Magnesium [Mass/Vol] 1.6 mg/dL Normal 1.5-2.2 [facility] Comment on above: Performed By: #### L 501.5200, L501.2300, L100.0100, L500.2500 ####[facility] [address] [place], [address] Oncology Visit Reporton Oncology Visit Report Normal [facility] Phosphoruson 08-02-2024 Phosphate [Mass/Vol] 2.4 mg/dL Low 2.7-4.5 [facility] Comment on above: Performed By: #### L 501.5200, L501.2300, L100.0100, L500.2500 ####[facility] [address] [place], [address] ABORh Confirmation No Charge on 07-26-2024 ANTI A PENDING Normal [facility] Comment on above: Performed By: #### B ABORHNC ####[facility] [address] [place], [address] ANTI B PENDING Normal [facility] Comment on above: Performed By: #### B ABORHNC ####[facility] [address] [place], [address] ANTI D PENDING Normal [facility] Comment on above: Performed By: #### B ABORHNC ####[facility] [address] [place], [place], [id number] ALP [Catalytic activity/Vol] Ordered By: Maxi Merlos on 07-26-2024 Serum or plasma alkaline phosphatase measurement 76 U/L 45-117 [facility] ALT [Catalytic activity/Vol] Ordered By: Maxi Merlos on 07-26-2024 Serum or plasma alanine aminotransferase (ALT) measurement 21 U/L 13-56 [facility] Albumin [Mass/Vol]Ordered By : Maxi Merlos on 07-26-2024 Serum or plasma albumin measurement (mass/volume) 3.1 g/dL Low 3.2-5.0 [facility] Albumin to globulin ratioOrd ered By: Maxi Merlos on 07-26-2024 Albumin to globulin ratio 0.9 RATIO 0.9-2.4 [facility] BRCon 07-26-2024 RC Normal [facility] Comment on above: Result Comment: [id number] AN RC TRANSFUSED 07/28/24 [id number] AN RC TRANSFUSED 07/27/24 1030 Performed By: #### B , [facility] ####[facility] [address] [place], [address] Bilirubin, totalOrdered By: Maxi Merlos on 07-26-2024 Bilirubin, total 0.30 mg/dL 0.20-1.00 [facility] CBC W/Diff, Automatedon 07-04 Absolute Lymph 0.92 X10 3/uL Normal 0.83-4.51 [facility] Comment on above: Performed By: #### L 500.4050, L100.0100 ####[facility] [address] [place], [address] Absolute Neut 7.0 X10 3/uL Normal 2.0-7.7 [facility] Comment on above: Performed By: #### L 500.4050, L100.0100 ####[facility] [address] [place], [address] Basophils/100 WBC (Bld) 0.2 % Normal 0-1 [facility] Comment on above: Performed By: #### L 500.4050, L100.0100 ####[facility] [address] [place], [address] Eosinophils/100 WBC (Bld) 0.2 % Normal 0-5 [facility] Comment on above: Performed By: #### L 500.4050, L100.0100 ####[facility] [address] [place], [address] Erythrocyte distribution width (RBC) [Ratio] 17.8 % High 11.6-14.6 [facility] Comment on above: Performed By: #### L 500.4050, L100.0100 ####[facility] [address] [place], [address] Hematocrit (Bld) [Volume fraction] 22.0 % Low 37-47 [facility] Comment on above: Performed By: #### L 500.4050, L100.0100 ####[facility] [address] [place], [address] Hemoglobin (Bld) [Mass/Vol] 6.8 g/dL Low 12.0-15.0 [facility] Comment on above: Performed By: #### L 500.4050, L100.0100 ####[facility] [address] [place], [address] IG% 4.900 High 0.0-0.9 [facility] Comment on above: Result Comment: IG% - Immature Granulocytes (promyelocytes, myelocytes andmetamyelocytes) > 1% indicates that a LEFT SHIFT is Present. Performed By: #### L 500.4050, L100.0100 ####[facility] [address] [place], [address] Lymphocytes/100 WBC (Bld) 9.9 % Low 19-41 [facility] Comment on above: Performed By: #### L 500.4050, L100.0100 ####[facility] [address] [place], [address] MCH (RBC) [Entitic mass] 32.1 pg High 27.0-32.0 [facility] Comment on above: Performed By: #### L 500.4050, L100.0100 ####[facility] [address] [place], [address] MCHC (RBC) [Mass/Vol] 30.9 g/dL Low 32-36 [facility] Comment on above: Performed By: #### L 500.4050, L100.0100 ####[facility] [address] [place], [address] MCV (RBC) [Entitic vol] 103.8 fL High 81-99 [facility] Comment on above: Performed By: #### L 500.4050, L100.0100 ####[facility] [address] [place], [address] Monocytes/100 WBC (Bld) 9.9 % Normal 0-10 [facility] Comment on above: Performed By: #### L 500.4050, L100.0100 ####[facility] [address] [place], [address] Neutrophils/100 WBC (Bld) 74.9 % High 47-70 [facility] Comment on above: Performed By: #### L 500.4050, L100.0100 ####[facility] [address] [place], [address] Nucleated RBC (Bld) [#/Vol] 1.1 10*3/uL Normal 0-5 [facility] Comment on above: Performed By: #### L 500.4050, L100.0100 ####[facility] [address] [place], [address] Platelet mean volume (Bld) [Entitic vol] 11.2 fL Normal 6.2-12.0 [facility] Comment on above: Performed By: #### L 500.4050, L100.0100 ####[facility] [address] [place], [address] Platelets (Bld) [#/Vol] 188 10*3/uL Normal 150-450 [facility] Comment on above: Performed By: #### L 500.4050, L100.0100 ####[facility] [address] [place], [address] RBC (Bld) [#/Vol] 2.12 10*6/uL Low 4.2-5.4 [facility] Comment on above: Performed By: #### L 500.4050, L100.0100 ####[facility] [address] [place], [address] RDW SD 59.4 fl High 35.1-43.9 [facility] Comment on above: Performed By: #### L 500.4050, L100.0100 ####[facility] [address] [place], [address] WBC (Bld) [#/Vol] 9.3 10*3/uL Normal 4.4-11.0 [facility] Comment on above: Performed By: #### L 500.4050, L100.0100 ####[facility] [address] [place], [address] Comprehensive Metabolic Prof ilon 07-26-2024 Albumin [Mass/Vol] 3.1 g/dL Low 3.2-5.0 [facility] Comment on above: Performed By: #### L 500.4050, L100.0100 ####[facility] [address] [place], [address] Albumin/Globulin [Mass ratio] 0.9 {ratio} Normal 0.9-2.4 [facility] Comment on above: Performed By: #### L 500.4050, L100.0100 ####[facility] [address] [place], [address] ALK P 76 U/L Normal 45-117 [facility] Comment on above: Performed By: #### L 500.4050, L100.0100 ####[facility] [address] [place], [address] ALT [Catalytic activity/Vol] 21 U/L Normal 13-56 [facility] Comment on above: Performed By: #### L 500.4050, L100.0100 ####[facility] [address] [place], [address] AST [Catalytic activity/Vol] 11 U/L Low 15-37 [facility] Comment on above: Performed By: #### L 500.4050, L100.0100 ####[facility] [address] [place], [address] Bilirubin [Mass/Vol] 0.30 mg/dL Normal 0.20-1.00 [facility] Comment on above: Result Comment: For patients on eltrombopag therapy, use of Dimension [place] TBIL is not recommended. Performed By: #### L 500.4050, L100.0100 ####[facility] [address] [place], [address] BUN/CRE 20.1 RATIO High 10-20 [facility] Comment on above: Performed By: #### L 500.4050, L100.0100 ####[facility] [address] [place], [address] CA,Total 8.8 mg/dL Normal 8.5-10.1 [facility] Comment on above: Performed By: #### L 500.4050, L100.0100 ####[facility] [address] [place], [address] Chloride [Moles/Vol] 110 mmol/L High 98-107 [facility] Comment on above: Performed By: #### L 500.4050, L100.0100 ####[facility] [address] [place], [address] CO2 [Moles/Vol] 24.0 mmol/L Normal 21.0-32.0 [facility] Comment on above: Performed By: #### L 500.4050, L100.0100 ####[facility] [address] [place], [address] Creatinine [Mass/Vol] 0.75 mg/dL Normal 0.55-1.02 [facility] Comment on above: Result Comment: The validity of the calculated GFR GFRAA in patients over70 years has not been determined. Clinical correlation isessential. Performed By: #### L 500.4050, L100.0100 ####[facility] [address] [place], [address] ECRCL 70.52 ml/min Normal [facility] Comment on above: Performed By: #### L 500.4050, L100.0100 ####[facility] [address] [place], [address] EST GFR - AA 99 mL/min Normal >60 [facility] Comment on above: Result Comment: Afri can Icelandic GFR Calc Performed By: #### L 500.4050, L100.0100 ####[facility] [address] [place], [address] GAP 10 Normal 5-15 [facility] Comment on above: Performed By: #### L 500.4050, L100.0100 ####[facility] [address] [place], [address] GFR/1.73 sq M.predicted among non-blacks MDRD (S/P/Bld) [Vol rate/Area] 82 mL/min/{1.73_m2} Normal >60 [facility] Comment on above: Result Comment: Non- GFR Calc Performed By: #### L 500.4050, L100.0100 ####[facility] [address] [place], [address] Globulin (S) [Mass/Vol] 3.4 g/dL Normal 2.2-4.2 [facility] Comment on above: Performed By: #### L 500.4050, L100.0100 ####[facility] [address] [place], [address] Glucose [Mass/Vol] 144 mg/dL High 74-106 [facility] Comment on above: Result Comment: Fast ing Glucose result greater than or equal to 126 mg/dLsuggests DIABETES MELLITUS per A.D.A. criteria. Performed By: #### L 500.4050, L100.0100 ####[facility] [address] [place], [address] Potassium [Moles/Vol] 3.4 mmol/L Low 3.5-5.1 [facility] Comment on above: Performed By: #### L 500.4050, L100.0100 ####[facility] [address] [place], [address] Sodium [Moles/Vol] 144 mmol/L Normal 136-145 [facility] Comment on above: Performed By: #### L 500.4050, L100.0100 ####[facility] [address] [place], [address] T PROT 6.5 g/dL Normal 6.4-8.2 [facility] Comment on above: Performed By: #### L 500.4050, L100.0100 ####[facility] [address] [place], [address] Urea nitrogen [Mass/Vol] 15 mg/dL Normal 7-18 [facility] Comment on above: Performed By: #### L 500.4050, L100.0100 ####[facility] [address] [place], [address] Estimated glomerular filtrat ion rate (GFR) AmericanOrdered By: Maxi Gaurnag on 07-26-2024 Estimated glomerular filtration rate (GFR) 99 mL/min >60 [facility] Magnesiumon 07-26-2024 Magnesium [Mass/Vol] 1.1 mg/dL Low 1.6-2.6 [facility] Comment on above: Performed By: #### L 501.2300, L501.5200 ####[facility] [address] [place], [place], [address] No Panel InformationOrdered By: Maxi Gaurang on 07-26-2024 11 U/L Low 15-37 [facility] Oncology Visit Reporton 07-04 Oncology Visit Report Normal [facility] Phosphoruson 07-26-2024 Phosphate [Mass/Vol] 3.1 mg/dL Normal 2.5-4.9 [facility] Comment on above: Performed By: #### L 501.2300, L501.5200 ####[facility] [address] [place], [place], [address] Serum globulin measurementOr dered By: Maxi Tovarsal on 07-26-2024 Serum globulin measurement 3.4 g/dL 2.2-4.2 [facility] Total proteinOrdered By: Vernon Tovarsal on 07-26-2024 Total protein 6.5 g/dL 6.4-8.2 [facility] Type AND Screenon 07-26-2024 ABO and Rh group Nom (Bld) Blood group A Rh(D) negative Normal [facility] Comment on above: Order Comment: @[id number] Performed By: #### B TS, [facility] ####[facility] [address] [place], [place], [address] CBC W/Diff, Automatedon 07-04 PATH REV Reviewed Normal [facility] Comment on above: Result Comment: Neut rophilic leukocytosis with left shift.Normocytic anemia.MARKED Thrombocytopenia.Clinical correlation necessary.Tae Kruger M.D. 07/22/24 AMENDED REPORT 07/22/24 0842 PATH REV previously reported as: September Performed By: #### L 100.0100, L500.2500 ####[facility] [address] [place], [address] Basic Metabolic Profile (BMP )on 07-20-2024 BUN/CRE 16.9 RATIO Normal 10-20 [facility] Comment on above: Performed By: #### L 100.0100, L500.2500 ####[facility] [address] [place], [address] CA,Total 9.4 mg/dL Normal 8.5-10.1 [facility] Comment on above: Performed By: #### L 100.0100, L500.2500 ####[facility] [address] [place], [address] Chloride [Moles/Vol] 106 mmol/L Normal 98-107 [facility] Comment on above: Performed By: #### L 100.0100, L500.2500 ####[facility] [address] [place], [address] CO2 [Moles/Vol] 26.0 mmol/L Normal 21.0-32.0 [facility] Comment on above: Performed By: #### L 100.0100, L500.2500 ####[facility] [address] [place], [address] Creatinine [Mass/Vol] 0.89 mg/dL Normal 0.55-1.02 [facility] Comment on above: Result Comment: The validity of the calculated GFR GFRAA in patients over70 years has not been determined. Clinical correlation isessential. Performed By: #### L 100.0100, L500.2500 ####[facility] [address] [place], [address] ECRCL 65.37 ml/min Normal [facility] Comment on above: Performed By: #### L 100.0100, L500.2500 ####[facility] [address] [place], [address] EST GFR - AA 81 mL/min Normal >60 [facility] Comment on above: Result Comment: Afri can Icelandic GFR Calc Performed By: #### L 100.0100, L500.2500 ####[facility] [address] [place], [address] GAP 8 Normal 5-15 [facility] Comment on above: Performed By: #### L 100.0100, L500.2500 ####[facility] [address] [place], [address] GFR/1.73 sq M.predicted among non-blacks MDRD (S/P/Bld) [Vol rate/Area] 67 mL/min/{1.73_m2} Normal >60 [facility] Comment on above: Result Comment: Non- GFR Calc Performed By: #### L 100.0100, L500.2500 ####[facility] [address] [place], [address] Glucose [Mass/Vol] 128 mg/dL High 74-106 [facility] Comment on above: Result Comment: Fast ing Glucose result greater than or equal to 126 mg/dLsuggests DIABETES MELLITUS per A.D.A. criteria. Performed By: #### L 100.0100, L500.2500 ####[facility] [address] [place], [address] Potassium [Moles/Vol] 2.9 mmol/L Low 3.5-5.1 [facility] Comment on above: Performed By: #### L 100.0100, L500.2500 ####[facility] [address] [place], [address] Sodium [Moles/Vol] 140 mmol/L Normal 136-145 [facility] Comment on above: Performed By: #### L 100.0100, L500.2500 ####[facility] [address] [place], [address] Urea nitrogen [Mass/Vol] 15 mg/dL Normal 7-18 [facility] Comment on above: Performed By: #### L 100.0100, L500.2500 ####[facility] [address] [place], [address] Blood metamyelocytes/100 soledad kocytesOrdered By: Leighann Arellano on 07-20-2024 Metamyelocytes/100 WBC (Bld) 3 % High 0-1 [facility] Metamyelocytes/100 WBC (Bld) Ordered By: Leighann Arellano on 07-20-2024 Blood metamyelocytes/100 leukocytes 3 % High 0-1 [facility] Oncology Visit Reporton 07-03 Oncology Visit Report Normal [facility] CBC W/Diff, Automatedon 07-03 PATH REV Reviewed Normal [facility] Comment on above: Result Comment: Leuk openia and neutropenia.Normocytic anemia.Clinical correlation necessary.Tae Kruger M.D. 07/14/24 AMENDED REPORT 07/14/24 1529 PATH REV previously reported as: September Performed By: #### L 100.0100, L500.2500, L501.5200 ####[facility] [address] [place], [address] Basic Metabolic Profile (BMP )on 07-13-2024 BUN/CRE 20.7 RATIO High 10-20 [facility] Comment on above: Performed By: #### L 100.0100, L500.2500, L501.5200 ####[facility] [address] [place], [address] CA,Total 9.3 mg/dL Normal 8.5-10.1 [facility] Comment on above: Performed By: #### L 100.0100, L500.2500, L501.5200 ####[facility] [address] [place], [address] Chloride [Moles/Vol] 106 mmol/L Normal 98-107 [facility] Comment on above: Performed By: #### L 100.0100, L500.2500, L501.5200 ####[facility] [address] [place], [address] CO2 [Moles/Vol] 23.0 mmol/L Normal 21.0-32.0 [facility] Comment on above: Performed By: #### L 100.0100, L500.2500, L501.5200 ####[facility] [address] [place], [address] Creatinine [Mass/Vol] 0.82 mg/dL Normal 0.55-1.02 [facility] Comment on above: Result Comment: The validity of the calculated GFR GFRAA in patients over70 years has not been determined. Clinical correlation isessential. Performed By: #### L 100.0100, L500.2500, L501.5200 ####[facility] [address] [place], [address] ECRCL 70.95 ml/min Normal [facility] Comment on above: Performed By: #### L 100.0100, L500.2500, L501.5200 ####[facility] [address] [place], [address] EST GFR - AA 89 mL/min Normal >60 [facility] Comment on above: Result Comment: Afri can Icelandic GFR Calc Performed By: #### L 100.0100, L500.2500, L501.5200 ####[facility] [address] [place], [address] GAP 9 Normal 5-15 [facility] Comment on above: Performed By: #### L 100.0100, L500.2500, L501.5200 ####[facility] [address] [place], [address] GFR/1.73 sq M.predicted among non-blacks MDRD (S/P/Bld) [Vol rate/Area] 73 mL/min/{1.73_m2} Normal >60 [facility] Comment on above: Result Comment: Non- GFR Calc Performed By: #### L 100.0100, L500.2500, L501.5200 ####[facility] [address] [place], [address] Glucose [Mass/Vol] 146 mg/dL High 74-106 [facility] Comment on above: Result Comment: Fast ing Glucose result greater than or equal to 126 mg/dLsuggests DIABETES MELLITUS per A.D.A. criteria. Performed By: #### L 100.0100, L500.2500, L501.5200 ####[facility] [address] [place], [address] Potassium [Moles/Vol] 3.8 mmol/L Normal 3.5-5.1 [facility] Comment on above: Performed By: #### L 100.0100, L500.2500, L501.5200 ####[facility] [address] [place], [address] Sodium [Moles/Vol] 138 mmol/L Normal 136-145 [facility] Comment on above: Performed By: #### L 100.0100, L500.2500, L501.5200 ####[facility] [address] [place], [address] Urea nitrogen [Mass/Vol] 17 mg/dL Normal 7-18 [facility] Comment on above: Performed By: #### L 100.0100, L500.2500, L501.5200 ####[facility] [address] [place], [address] Blood basophils/100 leukocyt esOrdered By: Leighann Arellano on 07-13-2024 Basophils/100 WBC (Bld) 1 % 0-1 [facility] Blood eosinophils/100 leukoc ytesOrdered By: Leighannrosa HernandezEileen on 07-13-2024 Eosinophils/100 WBC (Bld) 1 % 0-5 [facility] Blood eosinophils/100 leukocytes 1 % 0-1 [facility] Ferritinon 07-13-2024 Ferritin [Mass/Vol] 708 ng/mL High 8-252 [facility] Comment on above: Order Comment: PLEAS E ADD TO BLOOD IN THE LAB. THANK YOU!!! Performed By: #### L 503.6030, L503.6550 ####[facility] [address] [place], [address] Ferritin measurementOrdered By: Leighann HernandezEileen on 07-13-2024 Ferritin [Mass/Vol] 708 ng/mL High 8-252 [facility] Ferritin measurement 708 ng/mL High 8-252 [facility] Iron (Unsp spec) [Mass/Mass] Ordered By: Leighann HernandezEileen on 07-13-2024 Iron measurement (mass/mass) 264 ug/dL High 50-170 [facility] Iron measurement (mass/mass) Ordered By: Leighann Eileen on 07-13-2024 Iron (Unsp spec) [Mass/Mass] 264 ug/dL High 50-170 [facility] Iron saturation [Mass fracti on]Ordered By: Leighann HernandezEileen on 07-13-2024 Serum or plasma iron saturation measurement (mass fraction) 84.9 % High 15.0-55.0 [facility] Iron+Iron Binding Capacityon 07-13-2024 Iron [Mass/Vol] 264 ug/dL High 50-170 [facility] Comment on above: Order Comment: PLEAS E ADD TO BLOOD IN THE LAB. THANK YOU!!! Performed By: #### L 503.6030, L503.6550 ####[facility] [address] [place], [address] IRON SATURATION 84.9 High 15.0-55.0 [facility] Comment on above: Order Comment: PLEAS E ADD TO BLOOD IN THE LAB. THANK YOU!!! Performed By: #### L 503.6030, L503.6550 ####[facility] [address] [place], [address] TIBC 311 ug/dL Normal 250-450 [facility] Comment on above: Order Comment: BUBBA Langley ADD TO BLOOD IN THE LAB. THANK YOU!!! Performed By: #### L 503.6030, L503.6550 ####[facility] [address] [place], [address] Magnesiumon 07-13-2024 Magnesium [Mass/Vol] 2.0 mg/dL Normal 1.6-2.6 [facility] Comment on above: Performed By: #### L 100.0100, L500.2500, L501.5200 ####[facility] [address] [place], [address] Oncology Visit Reporton 07-03 Oncology Visit Report Normal [facility] Serum or plasma iron saturat ion measurement (mass fraction)Ordered By: Leighann Arellano on 07-13-2024 Iron saturation [Mass fraction] 84.9 % High 15.0-55.0 [facility] TIBCOrdered By: Leighann Krause ch on 07-13-2024 TIBC 311 ug/dL 250-450 [facility] Radiation Oncology Visiton 0 - Radiation Oncology Visit Normal [facility] CBC W/Diff, Automatedon Absolute Lymph 0.57 X10 3/uL Low 0.83-4.51 [facility] Comment on above: Performed By: #### L 500.4050, L100.0100 ####[facility] [address] [place], [address] Absolute Neut 3.0 X10 3/uL Normal 2.0-7.7 [facility] Comment on above: Performed By: #### L 500.4050, L100.0100 ####[facility] [address] [place], [address] Basophils/100 WBC (Bld) 0.5 % Normal 0-1 [facility] Comment on above: Performed By: #### L 500.4050, L100.0100 ####[facility] [address] [place], [address] Eosinophils/100 WBC (Bld) 0.5 % Normal 0-5 [facility] Comment on above: Performed By: #### L 500.4050, L100.0100 ####[facility] [address] [place], [address] Erythrocyte distribution width (RBC) [Ratio] 16.4 % High 11.6-14.6 [facility] Comment on above: Performed By: #### L 500.4050, L100.0100 ####[facility] [address] [place], [address] Hematocrit (Bld) [Volume fraction] 28.2 % Low 37-47 [facility] Comment on above: Performed By: #### L 500.4050, L100.0100 ####[facility] [address] [place], [address] Hemoglobin (Bld) [Mass/Vol] 8.9 g/dL Low 12.0-15.0 [facility] Comment on above: Performed By: #### L 500.4050, L100.0100 ####[facility] [address] [place], [address] IG% 1.200 High 0.0-0.9 [facility] Comment on above: Result Comment: IG% - Immature Granulocytes (promyelocytes, myelocytes andmetamyelocytes) > 1% indicates that a LEFT SHIFT is Present. Performed By: #### L 500.4050, L100.0100 ####[facility] [address] [place], [address] Lymphocytes/100 WBC (Bld) 13.5 % Low 19-41 [facility] Comment on above: Performed By: #### L 500.4050, L100.0100 ####[facility] [address] [place], [address] MCH (RBC) [Entitic mass] 31.6 pg Normal 27.0-32.0 [facility] Comment on above: Performed By: #### L 500.4050, L100.0100 ####[facility] [address] [place], [address] MCHC (RBC) [Mass/Vol] 31.6 g/dL Low 32-36 [facility] Comment on above: Performed By: #### L 500.4050, L100.0100 ####[facility] [address] [place], [address] MCV (RBC) [Entitic vol] 100.0 fL High 81-99 [facility] Comment on above: Performed By: #### L 500.4050, L100.0100 ####[facility] [address] [place], [address] Monocytes/100 WBC (Bld) 14.2 % High 0-10 [facility] Comment on above: Performed By: #### L 500.4050, L100.0100 ####[facility] [address] [place], [address] Neutrophils/100 WBC (Bld) 70.1 % High 47-70 [facility] Comment on above: Performed By: #### L 500.4050, L100.0100 ####[facility] [address] [place], [address] Nucleated RBC (Bld) [#/Vol] 0 10*3/uL Normal 0-5 [facility] Comment on above: Performed By: #### L 500.4050, L100.0100 ####[facility] [address] [place], [address] Platelet mean volume (Bld) [Entitic vol] 10.3 fL Normal 6.2-12.0 [facility] Comment on above: Performed By: #### L 500.4050, L100.0100 ####[facility] [address] [place], [address] Platelets (Bld) [#/Vol] 303 10*3/uL Normal 150-450 [facility] Comment on above: Performed By: #### L 500.4050, L100.0100 ####[facility] [address] [place], [address] RBC (Bld) [#/Vol] 2.82 10*6/uL Low 4.2-5.4 [facility] Comment on above: Performed By: #### L 500.4050, L100.0100 ####[facility] [address] [place], [address] RDW SD 51.7 fl High 35.1-43.9 [facility] Comment on above: Performed By: #### L 500.4050, L100.0100 ####[facility] [address] [place], [address] WBC (Bld) [#/Vol] 4.2 10*3/uL Low 4.4-11.0 [facility] Comment on above: Performed By: #### L 500.4050, L100.0100 ####[facility] [address] [place], [address] Absolute Neut Normal 2.0-7.7 [facility] Comment on above: Result Comment: DUPL ICATED TO INTERNALS Performed By: #### L 100.0100, L500.4050 ####[facility] [address] [place], [address] HCT Normal 37-47 [facility] Comment on above: Result Comment: DUPL ICATED TO INTERNALS Performed By: #### L 100.0100, L500.4050 ####[facility] [address] [place], [address] HGB Normal 12.0-15.0 [facility] Comment on above: Result Comment: DUPL ICATED TO INTERNALS Performed By: #### L 100.0100, L500.4050 ####[facility] [address] [place], [address] MCH Normal 27.0-32.0 [facility] Comment on above: Result Comment: DUPL ICATED TO INTERNALS Performed By: #### L 100.0100, L500.4050 ####[facility] [address] [place], [address] MCHC Normal 32-36 [facility] Comment on above: Result Comment: DUPL ICATED TO INTERNALS Performed By: #### L 100.0100, L500.4050 ####[facility] [address] [place], [address] MCV Normal 81-99 [facility] Comment on above: Result Comment: DUPL ICATED TO INTERNALS Performed By: #### L 100.0100, L500.4050 ####[facility] [address] [place], [address] NEUT% Normal 47-70 [facility] Comment on above: Result Comment: DUPL ICATED TO INTERNALS Performed By: #### L 100.0100, L500.4050 ####[facility] [address] [place], [address] PLT Normal 150-450 [facility] Comment on above: Result Comment: DUPL ICATED TO INTERNALS Performed By: #### L 100.0100, L500.4050 ####[facility] [address] [place], [address] RBC Normal 4.2-5.4 [facility] Comment on above: Result Comment: DUPL ICATED TO INTERNALS Performed By: #### L 100.0100, L500.4050 ####[facility] [address] [place], [address] RDW CV Normal 11.6-14.6 [facility] Comment on above: Result Comment: DUPL ICATED TO INTERNALS Performed By: #### L 100.0100, L500.4050 ####[facility] [address] [place], [address] RDW SD Normal 35.1-43.9 [facility] Comment on above: Result Comment: DUPL ICATED TO INTERNALS Performed By: #### L 100.0100, L500.4050 ####[facility] [address] [place], [address] WBC Normal 4.4-11.0 [facility] Comment on above: Result Comment: DUPL ICATED TO INTERNALS Performed By: #### L 100.0100, L500.4050 ####[facility] [address] [place], [address] Comprehensive Metabolic Prof [facility] 07-06-2024 Albumin [Mass/Vol] 3.2 g/dL Normal 3.2-5.0 [facility] Comment on above: Performed By: #### L 500.4050, L100.0100 ####[facility] [address] [place], [address] Albumin/Globulin [Mass ratio] 0.9 {ratio} Normal 0.9-2.4 [facility] Comment on above: Performed By: #### L 500.4050, L100.0100 ####[facility] [address] [place], [address] ALK P 72 U/L Normal 45-117 [facility] Comment on above: Performed By: #### L 500.4050, L100.0100 ####[facility] [address] [place], [address] ALT [Catalytic activity/Vol] 29 U/L Normal 13-56 [facility] Comment on above: Performed By: #### L 500.4050, L100.0100 ####[facility] [address] [place], [address] AST [Catalytic activity/Vol] 21 U/L Normal 15-37 [facility] Comment on above: Performed By: #### L 500.4050, L100.0100 ####[facility] [address] [place], [address] Bilirubin [Mass/Vol] 0.30 mg/dL Normal 0.20-1.00 [facility] Comment on above: Result Comment: For patients on eltrombopag therapy, use of Dimension [place] TBIL is not recommended. Performed By: #### L 500.4050, L100.0100 ####[facility] [address] [place], [address] BUN/CRE 8.7 RATIO Low 10-20 [facility] Comment on above: Performed By: #### L 500.4050, L100.0100 ####[facility] [address] [place], [address] CA,Total 9.1 mg/dL Normal 8.5-10.1 [facility] Comment on above: Performed By: #### L 500.4050, L100.0100 ####[facility] [address] [place], [address] Chloride [Moles/Vol] 112 mmol/L High 98-107 [facility] Comment on above: Performed By: #### L 500.4050, L100.0100 ####[facility] [address] [place], [address] CO2 [Moles/Vol] 24.0 mmol/L Normal 21.0-32.0 [facility] Comment on above: Performed By: #### L 500.4050, L100.0100 ####[facility] [address] [place], [address] Creatinine [Mass/Vol] 0.81 mg/dL Normal 0.55-1.02 [facility] Comment on above: Result Comment: The validity of the calculated GFR GFRAA in patients over70 years has not been determined. Clinical correlation isessential. Performed By: #### L 500.4050, L100.0100 ####[facility] [address] [place], [address] ECRCL 72.56 ml/min Normal [facility] Comment on above: Performed By: #### L 500.4050, L100.0100 ####[facility] [address] [place], [address] EST GFR - AA 90 mL/min Normal >60 [facility] Comment on above: Result Comment: Afri can Icelandic GFR Calc Performed By: #### L 500.4050, L100.0100 ####[facility] [address] [place], [address] GAP 8 Normal 5-15 [facility] Comment on above: Performed By: #### L 500.4050, L100.0100 ####[facility] [address] [place], [address] GFR/1.73 sq M.predicted among non-blacks MDRD (S/P/Bld) [Vol rate/Area] 75 mL/min/{1.73_m2} Normal >60 [facility] Comment on above: Result Comment: Non- GFR Calc Performed By: #### L 500.4050, L100.0100 ####[facility] [address] [place], [address] Globulin (S) [Mass/Vol] 3.5 g/dL Normal 2.2-4.2 [facility] Comment on above: Performed By: #### L 500.4050, L100.0100 ####[facility] [address] [place], [address] Glucose [Mass/Vol] 127 mg/dL High 74-106 [facility] Comment on above: Result Comment: Fast ing Glucose result greater than or equal to 126 mg/dLsuggests DIABETES MELLITUS per A.D.A. criteria. Performed By: #### L 500.4050, L100.0100 ####[facility] [address] [place], [address] Potassium [Moles/Vol] 3.9 mmol/L Normal 3.5-5.1 [facility] Comment on above: Performed By: #### L 500.4050, L100.0100 ####[facility] [address] [place], [address] Sodium [Moles/Vol] 143 mmol/L Normal 136-145 [facility] Comment on above: Performed By: #### L 500.4050, L100.0100 ####[facility] [address] [place], [address] T PROT 6.7 g/dL Normal 6.4-8.2 [facility] Comment on above: Performed By: #### L 500.4050, L100.0100 ####[facility] [address] [place], [address] Urea nitrogen [Mass/Vol] 7 mg/dL Normal 7-18 [facility] Comment on above: Performed By: #### L 500.4050, L100.0100 ####[facility] [address] [place], [address] ALB Normal 3.2-5.0 [facility] Comment on above: Result Comment: DUPL ICATED TO INTERNALS Performed By: #### L 100.0100, L500.4050 ####[facility] [address] [place], [address] ALK P Normal 45-117 [facility] Comment on above: Result Comment: DUPL ICATED TO INTERNALS Performed By: #### L 100.0100, L500.4050 ####[facility] [address] [place], [address] ALT Normal 13-56 [facility] Comment on above: Result Comment: DUPL ICATED TO INTERNALS Performed By: #### L 100.0100, L500.4050 ####[facility] [address] [place], [address] AST Normal 15-37 [facility] Comment on above: Result Comment: DUPL ICATED TO INTERNALS Performed By: #### L 100.0100, L500.4050 ####[facility] [address] [place], [address] BUN Normal 7-18 [facility] Comment on above: Result Comment: DUPL ICATED TO INTERNALS Performed By: #### L 100.0100, L500.4050 ####[facility] [address] [place], [address] BUN/CRE Normal 10-20 [facility] Comment on above: Result Comment: DUPL ICATED TO INTERNALS Performed By: #### L 100.0100, L500.4050 ####[facility] [address] [place], [address] CA,Total Normal 8.5-10.1 [facility] Comment on above: Result Comment: DUPL ICATED TO INTERNALS Performed By: #### L 100.0100, L500.4050 ####[facility] [address] [place], [address] CL Normal 98-107 [facility] Comment on above: Result Comment: DUPL ICATED TO INTERNALS Performed By: #### L 100.0100, L500.4050 ####[facility] [address] [place], [address] CO2 Normal 21.0-32.0 [facility] Comment on above: Result Comment: DUPL ICATED TO INTERNALS Performed By: #### L 100.0100, L500.4050 ####[facility] [address] [place], [address] CREAT,SERUM Normal 0.55-1.02 [facility] Comment on above: Result Comment: DUPL ICATED TO INTERNALS Performed By: #### L 100.0100, L500.4050 ####[facility] [address] [place], [address] EST GFR Normal >60 [facility] Comment on above: Result Comment: DUPL ICATED TO INTERNALS Performed By: #### L 100.0100, L500.4050 ####[facility] [address] [place], [address] EST GFR - AA Normal >60 [facility] Comment on above: Result Comment: DUPL ICATED TO INTERNALS Performed By: #### L 100.0100, L500.4050 ####[facility] [address] [place], [address] GAP Normal 5-15 [facility] Comment on above: Result Comment: DUPL ICATED TO INTERNALS Performed By: #### L 100.0100, L500.4050 ####[facility] [address] [place], [address] GLU Normal 74-106 [facility] Comment on above: Result Comment: DUPL ICATED TO INTERNALS Performed By: #### L 100.0100, L500.4050 ####[facility] [address] [place], [address] Potassium Normal 3.5-5.1 [facility] Comment on above: Result Comment: DUPL ICATED TO INTERNALS Performed By: #### L 100.0100, L500.4050 ####[facility] [address] [place], [address] T BILI Normal 0.20-1.00 [facility] Comment on above: Result Comment: DUPL ICATED TO INTERNALS Performed By: #### L 100.0100, L500.4050 ####[facility] [address] [place], [address] T PROT Normal 6.4-8.2 [facility] Comment on above: Result Comment: DUPL ICATED TO INTERNALS Performed By: #### L 100.0100, L500.4050 ####[facility] [address] [place], [address] Comprehensive Metabolic Profil Normal 136-145 [facility] Comment on above: Result Comment: DUPL ICATED TO INTERNALS Performed By: #### L 100.0100, L500.4050 ####[facility] [address] [place], [address] Oncology Visit Reporton Oncology Visit Report Normal [facility] Absolute lymphocyte countOrd ered By: Gareth Packer on 07-05-2024 Lymphocytes Auto (Unsp spec) [#/Vol] 0.54 10*3/uL Low 0.83-4.51 [facility] Absolute neutrophil countOrd ered By: Gareth Packer on 07-05-2024 Neutrophils (Bld) [#/Vol] 2.7 10*3/uL 2.0-7.7 [facility] Absolute neutrophil count 2.7 X10^3/uL 2.0-7.7 [facility] Automated lymphocyte count a s percentage of total leukocytesOrdered By: Gareth Packer on 07-05-2024 Lymphocytes/100 WBC Auto (Unsp spec) 14.0 % Low 19-41 [facility] Basic Metabolic Profile (BMP )on 07-05-2024 BUN/CRE 7.8 RATIO Low 10-20 [facility] Comment on above: Performed By: #### L 100.0100, L500.2500 ####[facility] [address] [place], [address] CA,Total 8.6 mg/dL Normal 8.5-10.1 [facility] Comment on above: Performed By: #### L 100.0100, L500.2500 ####[facility] [address] [place], [address] Chloride [Moles/Vol] 116 mmol/L High 98-107 [facility] Comment on above: Performed By: #### L 100.0100, L500.2500 ####[facility] [address] [place], [address] CO2 [Moles/Vol] 24.0 mmol/L Normal 21.0-32.0 [facility] Comment on above: Performed By: #### L 100.0100, L500.2500 ####[facility] [address] [place], [address] Creatinine [Mass/Vol] 0.64 mg/dL Normal 0.55-1.02 [facility] Comment on above: Result Comment: The validity of the calculated GFR GFRAA in patients over70 years has not been determined. Clinical correlation isessential. Performed By: #### L 100.0100, L500.2500 ####[facility] [address] [place], [address] ECRCL 71.18 ml/min Normal [facility] Comment on above: Performed By: #### L 100.0100, L500.2500 ####[facility] [address] [place], [address] EST GFR - AA 119 mL/min Normal >60 [facility] Comment on above: Result Comment: Afri can Icelandic GFR Calc Performed By: #### L 100.0100, L500.2500 ####[facility] [address] [place], [address] GAP 5 Normal 5-15 [facility] Comment on above: Performed By: #### L 100.0100, L500.2500 ####[facility] [address] [place], [address] GFR/1.73 sq M.predicted among non-blacks MDRD (S/P/Bld) [Vol rate/Area] 98 mL/min/{1.73_m2} Normal >60 [facility] Comment on above: Result Comment: Non- GFR Calc Performed By: #### L 100.0100, L500.2500 ####[facility] [address] [place], [address] Glucose [Mass/Vol] 91 mg/dL Normal 74-106 [facility] Comment on above: Performed By: #### L 100.0100, L500.2500 ####[facility] [address] [place], [address] Potassium [Moles/Vol] 4.1 mmol/L Normal 3.5-5.1 [facility] Comment on above: Performed By: #### L 100.0100, L500.2500 ####[facility] [address] [place], [address] Sodium [Moles/Vol] 145 mmol/L Normal 136-145 [facility] Comment on above: Performed By: #### L 100.0100, L500.2500 ####[facility] [address] [place], [address] Urea nitrogen [Mass/Vol] 5 mg/dL Low 7-18 [facility] Comment on above: Performed By: #### L 100.0100, L500.2500 ####[facility] [address] [place], [address] Basophil percentageOrdered B y: Gareth Packer on 07-05-2024 Basophils/100 WBC (Bld) 0.3 % 0-1 [facility] Basophil percentage 0.3 % 0-1 [facility] Bedside Glucoseon 07-05-2024 FINGERSTICK GLU 84 mg/dL Normal 74-106 [facility] Comment on above: Result Comment: JUAN GEMENT OF PATIENT CARE PER NURSING PROTOCOL Performed By: #### L 501.080 ####[facility] [address] [place], [address] FINGERSTICK GLU 86 mg/dL Normal 74-106 [facility] Comment on above: Result Comment: JUAN GEMENT OF PATIENT CARE PER NURSING PROTOCOL Performed By: #### L 501.080 ####[facility] [address] [place], [address] Blood urea nitrogen (BUN)/cr eatinine ratioOrdered By: Gareth Packer on 07-05-2024 Urea nitrogen/Creatinine [Mass ratio] 7.8 mg/mg Low 10-20 [facility] Blood urea nitrogen (BUN)/creatinine ratio 7.8 RATIO Low 10-20 [facility] CBC W/Diff, Automatedon 02- Absolute Lymph 0.54 X10 3/uL Low 0.83-4.51 [facility] Comment on above: Performed By: #### L 100.0100, L500.2500 ####[facility] [address] [place], [address] Absolute Neut 2.7 X10 3/uL Normal 2.0-7.7 [facility] Comment on above: Performed By: #### L 100.0100, L500.2500 ####[facility] [address] [place], [address] Basophils/100 WBC (Bld) 0.3 % Normal 0-1 [facility] Comment on above: Performed By: #### L 100.0100, L500.2500 ####[facility] [address] [place], [address] Eosinophils/100 WBC (Bld) 0.5 % Normal 0-5 [facility] Comment on above: Performed By: #### L 100.0100, L500.2500 ####[facility] [address] [place], [address] Erythrocyte distribution width (RBC) [Ratio] 15.5 % High 11.6-14.6 [facility] Comment on above: Performed By: #### L 100.0100, L500.2500 ####[facility] [address] [place], [address] Hematocrit (Bld) [Volume fraction] 25.1 % Low 37-47 [facility] Comment on above: Performed By: #### L 100.0100, L500.2500 ####[facility] [address] [place], [address] Hemoglobin (Bld) [Mass/Vol] 8.1 g/dL Low 12.0-15.0 [facility] Comment on above: Performed By: #### L 100.0100, L500.2500 ####[facility] [address] [place], [address] IG% 1.800 High 0.0-0.9 [facility] Comment on above: Result Comment: IG% - Immature Granulocytes (promyelocytes, myelocytes andmetamyelocytes) > 1% indicates that a LEFT SHIFT is Present. Performed By: #### L 100.0100, L500.2500 ####[facility] [address] [place], [address] Lymphocytes/100 WBC (Bld) 14.0 % Low 19-41 [facility] Comment on above: Performed By: #### L 100.0100, L500.2500 ####[facility] [address] [place], [address] MCH (RBC) [Entitic mass] 32.1 pg High 27.0-32.0 [facility] Comment on above: Performed By: #### L 100.0100, L500.2500 ####[facility] [address] [place], [address] MCHC (RBC) [Mass/Vol] 32.3 g/dL Normal 32-36 [facility] Comment on above: Performed By: #### L 100.0100, L500.2500 ####[facility] [address] [place], [address] MCV (RBC) [Entitic vol] 99.6 fL High 81-99 [facility] Comment on above: Performed By: #### L 100.0100, L500.2500 ####[facility] [address] [place], [address] Monocytes/100 WBC (Bld) 12.7 % High 0-10 [facility] Comment on above: Performed By: #### L 100.0100, L500.2500 ####[facility] [address] [place], [address] Neutrophils/100 WBC (Bld) 70.7 % High 47-70 [facility] Comment on above: Performed By: #### L 100.0100, L500.2500 ####[facility] [address] [place], [address] Nucleated RBC (Bld) [#/Vol] 0 10*3/uL Normal 0-5 [facility] Comment on above: Performed By: #### L 100.0100, L500.2500 ####[facility] [address] [place], [address] Platelet mean volume (Bld) [Entitic vol] 10.2 fL Normal 6.2-12.0 [facility] Comment on above: Performed By: #### L 100.0100, L500.2500 ####[facility] [address] [place], [address] Platelets (Bld) [#/Vol] 255 10*3/uL Normal 150-450 [facility] Comment on above: Performed By: #### L 100.0100, L500.2500 ####[facility] [address] [place], [address] RBC (Bld) [#/Vol] 2.52 10*6/uL Low 4.2-5.4 [facility] Comment on above: Performed By: #### L 100.0100, L500.2500 ####[facility] [address] [place], [address] RDW SD 49.8 fl High 35.1-43.9 [facility] Comment on above: Performed By: #### L 100.0100, L500.2500 ####[facility] [address] [place], [address] WBC (Bld) [#/Vol] 3.9 10*3/uL Low 4.4-11.0 [facility] Comment on above: Performed By: #### L 100.0100, L500.2500 ####[facility] [address] [place], [address] Absolute Neut Normal 2.0-7.7 [facility] Comment on above: Result Comment: PER OM PT INHOUSE Performed By: #### L 100.0100, L500.4050 ####[facility] [address] [place], [address] HCT Normal 37-47 [facility] Comment on above: Result Comment: PER OM PT INHOUSE Performed By: #### L 100.0100, L500.4050 ####[facility] [address] [place], [address] HGB Normal 12.0-15.0 [facility] Comment on above: Result Comment: PER OM PT INHOUSE Performed By: #### L 100.0100, L500.4050 ####[facility] [address] [place], [address] MCH Normal 27.0-32.0 [facility] Comment on above: Result Comment: PER OM PT INHOUSE Performed By: #### L 100.0100, L500.4050 ####[facility] [address] [place], [address] MCHC Normal 32-36 [facility] Comment on above: Result Comment: PER OM PT INHOUSE Performed By: #### L 100.0100, L500.4050 ####[facility] [address] [place], [address] MCV Normal 81-99 [facility] Comment on above: Result Comment: PER OM PT INHOUSE Performed By: #### L 100.0100, L500.4050 ####[facility] [address] [place], [address] NEUT% Normal 47-70 [facility] Comment on above: Result Comment: PER OM PT INHOUSE Performed By: #### L 100.0100, L500.4050 ####[facility] [address] [place], [address] PLT Normal 150-450 [facility] Comment on above: Result Comment: PER OM PT INHOUSE Performed By: #### L 100.0100, L500.4050 ####[facility] [address] [place], [address] RBC Normal 4.2-5.4 [facility] Comment on above: Result Comment: PER OM PT INHOUSE Performed By: #### L 100.0100, L500.4050 ####[facility] [address] [place], [address] RDW CV Normal 11.6-14.6 [facility] Comment on above: Result Comment: PER OM PT INHOUSE Performed By: #### L 100.0100, L500.4050 ####[facility] [address] [place], [address] RDW SD Normal 35.1-43.9 [facility] Comment on above: Result Comment: PER OM PT INHOUSE Performed By: #### L 100.0100, L500.4050 ####[facility] [address] [place], [address] WBC Normal 4.4-11.0 [facility] Comment on above: Result Comment: PER OM PT INHOUSE Performed By: #### L 100.0100, L500.4050 ####[facility] [address] [place], [address] Calcium [Mass/Vol]Ordered By : Gareth Packer on 07-05-2024 Serum or plasma calcium measurement (mass/volume) 8.6 mg/dL 8.5-10.1 [facility] Carbon dioxide measurementOr dered By: Gareth Packer on 07-05-2024 CO2 [Moles/Vol] 24.0 mmol/L 21.0-32.0 [facility] Carbon dioxide measurement 24.0 mmol/L 21.0-32.0 [facility] Chloride measurementOrdered By: Gareth Packer on 07-05-2024 Chloride [Moles/Vol] 116 mmol/L High 98-107 [facility] Chloride measurement 116 mmol/L High 98-107 [facility] Comprehensive Metabolic Prof ilon 07-05-2024 ALB Normal 3.2-5.0 [facility] Comment on above: Result Comment: PER OM PT INHOUSE Performed By: #### L 100.0100, L500.4050 ####[facility] [address] [place], [address] ALK P Normal 45-117 [facility] Comment on above: Result Comment: PER OM PT INHOUSE Performed By: #### L 100.0100, L500.4050 ####[facility] [address] [place], [address] ALT Normal 13-56 [facility] Comment on above: Result Comment: PER OM PT INHOUSE Performed By: #### L 100.0100, L500.4050 ####[facility] [address] [place], [address] AST Normal 15-37 [facility] Comment on above: Result Comment: PER OM PT INHOUSE Performed By: #### L 100.0100, L500.4050 ####[facility] [address] [place], [address] BUN Normal 7-18 [facility] Comment on above: Result Comment: PER OM PT INHOUSE Performed By: #### L 100.0100, L500.4050 ####[facility] [address] [place], [address] BUN/CRE Normal 10-20 [facility] Comment on above: Result Comment: PER OM PT INHOUSE Performed By: #### L 100.0100, L500.4050 ####[facility] [address] [place], [address] CA,Total Normal 8.5-10.1 [facility] Comment on above: Result Comment: PER OM PT INHOUSE Performed By: #### L 100.0100, L500.4050 ####[facility] [address] [place], [address] CL Normal 98-107 [facility] Comment on above: Result Comment: PER OM PT INHOUSE Performed By: #### L 100.0100, L500.4050 ####[facility] [address] [place], [address] CO2 Normal 21.0-32.0 [facility] Comment on above: Result Comment: PER OM PT INHOUSE Performed By: #### L 100.0100, L500.4050 ####[facility] [address] [place], [address] CREAT,SERUM Normal 0.55-1.02 [facility] Comment on above: Result Comment: PER OM PT INHOUSE Performed By: #### L 100.0100, L500.4050 ####[facility] [address] [place], [address] EST GFR Normal >60 [facility] Comment on above: Result Comment: PER OM PT INHOUSE Performed By: #### L 100.0100, L500.4050 ####[facility] [address] [place], [address] EST GFR - AA Normal >60 [facility] Comment on above: Result Comment: PER OM PT INHOUSE Performed By: #### L 100.0100, L500.4050 ####[facility] [address] [place], [address] GAP Normal 5-15 [facility] Comment on above: Result Comment: PER OM PT INHOUSE Performed By: #### L 100.0100, L500.4050 ####[facility] [address] [place], [address] GLU Normal 74-106 [facility] Comment on above: Result Comment: PER OM PT INHOUSE Performed By: #### L 100.0100, L500.4050 ####[facility] [address] [place], [address] Potassium Normal 3.5-5.1 [facility] Comment on above: Result Comment: PER OM PT INHOUSE Performed By: #### L 100.0100, L500.4050 ####[facility] [address] [place], [address] T BILI Normal 0.20-1.00 [facility] Comment on above: Result Comment: PER OM PT INHOUSE Performed By: #### L 100.0100, L500.4050 ####[facility] [address] [place], [address] T PROT Normal 6.4-8.2 [facility] Comment on above: Result Comment: PER OM PT INHOUSE Performed By: #### L 100.0100, L500.4050 ####[facility] [address] [place], [address] Comprehensive Metabolic Profil Normal 136-145 [facility] Comment on above: Result Comment: PER OM PT INHOUSE Performed By: #### L 100.0100, L500.4050 ####[facility] [address] [place], [address] Creatinine [Mass/Vol]Ordered By: Gareth Packer on 07-05-2024 Serum or plasma creatinine measurement (mass/volume) 0.64 mg/dL 0.55-1.02 [facility] Discharge Instructionon 02-0 Discharge Instruction Normal [facility] Eosinophil percentageOrdered By: Gareth Packer on 07-05-2024 Eosinophils/100 WBC (Bld) 0.5 % 0-5 [facility] Eosinophil percentage 0.5 % 0-5 [facility] Erythrocyte distribution wid th (RBC) [Entitic vol]Ordered By: Gareth Packer on 07-05-2024 Erythrocyte distribution width standard deviation 49.8 fl High 35.1-43.9 [facility] Erythrocyte distribution wid th (RBC) [Ratio]Ordered By: Gareth Packer on 07-05-2024 Erythrocyte distribution width ratio 15.5 % High 11.6-14.6 [facility] Erythrocyte distribution wid th ratioOrdered By: Gareth Packer on 07-05-2024 Erythrocyte distribution width (RBC) [Ratio] 15.5 % High 11.6-14.6 [facility] Erythrocyte distribution wid th standard deviationOrdered By: Gareth Packer on 07-05-2024 Erythrocyte distribution width (RBC) [Ratio] 49.8 fl High 35.1-43.9 [facility] Estimated glomerular filtrat ion rate (GFR) AmericanOrdered By: Gareth Packer on 07-05-2024 Estimated glomerular filtration rate (GFR) 119 mL/min >60 [facility] Estimation of creatinine jaswinder aranceOrdered By: Gareth Packer on 07-05-2024 Estimation of creatinine clearance 71.18 ml/min [facility] Glomerular filtration rate ( GFR) estimationOrdered By: Gareth Packer on 07-05-2024 GFR/1.73 sq M.predicted among non-blacks MDRD (S/P/Bld) [Vol rate/Area] 98 mL/min/{1.73_m2} >60 [facility] Comment on above: Non- GFR Calc Glomerular filtration rate (GFR) estimation 98 mL/min >60 [facility] Glucose measurementOrdered B y: Gareth Packer on 07-05-2024 Glucose [Mass/Vol] 91 mg/dL 74-106 [facility] Glucose measurement 91 mg/dL 74-106 [facility] Glucose measurement at bedsi deOrdered By: Gareth Packer on 07-05-2024 Glucose [Mass/Vol] 84 mg/dL 74-106 [facility] Comment on above: MANAGEMENT OF PATIEN T CARE PER NURSING PROTOCOL Glucose measurement at bedside 84 mg/dL 74-106 [facility] Hematocrit Auto (Bld) [Volum e fraction]Ordered By: Gareth Packer on 07-05-2024 Hematocrit (Bld) [Volume fraction] 25.1 % Low 37-47 [facility] Automated blood hematocrit (percentage) 25.1 % Low 37-47 [facility] Hemoglobin measurementOrdere d By: Gareth Packer on 07-05-2024 Hemoglobin (Bld) [Mass/Vol] 8.1 g/dL Low 12.0-15.0 [facility] Hemoglobin measurement 8.1 g/dL Low 12.0-15.0 [facility] Immature granulocytes/100 WB C Auto (Bld)Ordered By: Gareth Packer on 07-05-2024 Immature granulocytes/100 WBC (Bld) 1.800 % High 0.0-0.9 [facility] Comment on above: IG% - Immature Granu locytes (promyelocytes, myelocytes and metamyelocytes) > 1% indicates that a LEFT SHIFT is Present. Automated immature granulocyte percentage 1.800 % High 0.0-0.9 [facility] Lymphocytes Auto (Unsp spec) [#/Vol]Ordered By: Gareth Packer on 07-05-2024 Absolute lymphocyte count 0.54 X10^3/uL Low 0.83-4.51 [facility] Lymphocytes/100 WBC Auto (Un sp spec)Ordered By: Gareth Packer on 07-05-2024 Automated lymphocyte count as percentage of total leukocytes 14.0 % Low 19-41 [facility] MCV (RBC) [Entitic vol]Order ed By: Gareth Packer on 07-05-2024 MCV (mean corpuscular volume) determination 99.6 fL High 81-99 [facility] MCV (mean corpuscular volume ) determinationOrdered By: Gareth Packer on 07-05-2024 MCV (RBC) [Entitic vol] 99.6 fL High 81-99 [facility] Mean corpuscular hemoglobin (MCH) determinationOrdered By: Gareth Packer on 07-05-2024 MCH (RBC) [Entitic mass] 32.1 pg High 27.0-32.0 [facility] Mean corpuscular hemoglobin (MCH) determination 32.1 pg High 27.0-32.0 [facility] Mean corpuscular hemoglobin concentration (MCHC) determinationOrdered By: Gareth Packer on 07-05-2024 MCHC (RBC) [Mass/Vol] 32.3 g/dL 32-36 [facility] Mean corpuscular hemoglobin concentration (MCHC) determination 32.3 g/dL 32-36 [facility] Mean platelet volume determi nationOrdered By: Gareth Packer on 07-05-2024 Platelet mean volume (Bld) [Entitic vol] 10.2 fL 6.2-12.0 [facility] Mean platelet volume determination 10.2 fl 6.2-12.0 [facility] Monocyte percentageOrdered B y: Gareth Packer on 07-05-2024 Monocytes/100 WBC (Bld) 12.7 % High 0-10 [facility] Monocyte percentage 12.7 % High 0-10 [facility] Neutrophil percentageOrdered By: Gareth Packer on 07-05-2024 Neutrophils/100 WBC (Bld) 70.7 % High 47-70 [facility] Neutrophil percentage 70.7 % High 47-70 [facility] Nucleated red blood cell per centageOrdered By: Gareth Packer on 07-05-2024 Nucleated RBC/100 WBC (Bld) [Ratio] 0 % 0-5 [facility] Nucleated red blood cell percentage 0 % 0-5 [facility] Platelet countOrdered By: Sidney Packer on 07-05-2024 Platelets (Bld) [#/Vol] 255 10*3/uL 150-450 [facility] Platelet count 255 K/mm3 150-450 [facility] Potassium measurementOrdered By: Gareth Packer on 07-05-2024 Potassium [Moles/Vol] 4.1 mmol/L 3.5-5.1 [facility] Potassium measurement 4.1 mmol/L 3.5-5.1 [facility] RBC Auto (Bld) [#/Vol]Ordere d By: Gareth Packer on 07-05-2024 RBC (Bld) [#/Vol] 2.52 10*6/uL Low 4.2-5.4 [facility] Automated blood erythrocyte count 2.52 M/mm3 Low 4.2-5.4 [facility] Serum anion gap measurementO rdered By: Gareth Packer on 07-05-2024 Anion gap [Moles/Vol] 5 mmol/L 5-15 [facility] Serum anion gap measurement 5 5-15 [facility] Serum or plasma calcium chacorta urement (mass/volume)Ordered By: Gareth Packer on 07-05-2024 Calcium [Mass/Vol] 8.6 mg/dL 8.5-10.1 [facility] Serum or plasma creatinine m easurement (mass/volume)Ordered By: Gareth Packer on 07-05-2024 Creatinine [Mass/Vol] 0.64 mg/dL 0.55-1.02 [facility] Comment on above: The validity of the calculated GFR & GFRAA in patients over 70 years has not been determined. Clinical correlation is essential. Serum or plasma urea nitroge n measurement (mass/volume)Ordered By: Gareth Packer on 02-03-2025 Urea nitrogen [Mass/Vol] 5 mg/dL Low 7-18 [facility] Sodium levelOrdered By: Anand Packer on 07-05-2024 Sodium [Moles/Vol] 145 mmol/L 136-145 [facility] Sodium level 145 mmol/L 136-145 [facility] Urea nitrogen [Mass/Vol]Orde red By: Gareth Packer on 07-05-2024 Serum or plasma urea nitrogen measurement (mass/volume) 5 mg/dL Low 7-18 [facility] White blood cell (WBC) count Ordered By: Gareth Packer on 07-05-2024 WBC (Bld) [#/Vol] 3.9 10*3/uL Low 4.4-11.0 [facility] White blood cell (WBC) count 3.9 K/mm3 Low 4.4-11.0 [facility] ALP [Catalytic activity/Vol] Ordered By: Gareth Packer on 07-04-2024 Serum or plasma alkaline phosphatase measurement 64 U/L 45-117 [facility] ALT [Catalytic activity/Vol] Ordered By: Gareth Packer on 07-04-2024 Serum or plasma alanine aminotransferase (ALT) measurement 23 U/L 13-56 [facility] Abdomen/Pel W ORAL Cont Only on 07-04-2024 Abdomen/Pel W ORAL Cont Only Normal [facility] Albumin [Mass/Vol]Ordered By : Gareth Packer on 07-04-2024 Serum or plasma albumin measurement (mass/volume) 2.8 g/dL Low 3.2-5.0 [facility] Basic Metabolic Profile (BMP )on 07-04-2024 BUN/CRE 16.0 RATIO Normal 10-20 [facility] Comment on above: Performed By: #### L 500.2500, L501.2300, L500.3400 ####[facility] [address] [place], [address] CA,Total 8.5 mg/dL Normal 8.5-10.1 [facility] Comment on above: Performed By: #### L 500.2500, L501.2300, L500.3400 ####[facility] [address] [place], [address] Chloride [Moles/Vol] 116 mmol/L High 98-107 [facility] Comment on above: Performed By: #### L 500.2500, L501.2300, L500.3400 ####[facility] [address] [place], [address] CO2 [Moles/Vol] 23.0 mmol/L Normal 21.0-32.0 [facility] Comment on above: Performed By: #### L 500.2500, L501.2300, L500.3400 ####[facility] [address] [place], [address] Creatinine [Mass/Vol] 0.56 mg/dL Normal 0.55-1.02 [facility] Comment on above: Result Comment: The validity of the calculated GFR GFRAA in patients over70 years has not been determined. Clinical correlation isessential. Performed By: #### L 500.2500, L501.2300, L500.3400 ####[facility] [address] [place], [address] ECRCL 71.18 ml/min Normal [facility] Comment on above: Performed By: #### L 500.2500, L501.2300, L500.3400 ####[facility] [address] [place], [address] EST GFR - AA 137 mL/min Normal >60 [facility] Comment on above: Result Comment: Afri can Icelandic GFR Calc Performed By: #### L 500.2500, L501.2300, L500.3400 ####[facility] [address] [place], [address] GAP 6 Normal 5-15 [facility] Comment on above: Performed By: #### L 500.2500, L501.2300, L500.3400 ####[facility] [address] [place], [address] GFR/1.73 sq M.predicted among non-blacks MDRD (S/P/Bld) [Vol rate/Area] 113 mL/min/{1.73_m2} Normal >60 [facility] Comment on above: Result Comment: Non- GFR Calc Performed By: #### L 500.2500, L501.2300, L500.3400 ####[facility] [address] [place], [address] Glucose [Mass/Vol] 98 mg/dL Normal 74-106 [facility] Comment on above: Performed By: #### L 500.2500, L501.2300, L500.3400 ####[facility] [address] [place], [address] Potassium [Moles/Vol] 3.8 mmol/L Normal 3.5-5.1 [facility] Comment on above: Performed By: #### L 500.2500, L501.2300, L500.3400 ####[facility] [address] [place], [address] Sodium [Moles/Vol] 145 mmol/L Normal 136-145 [facility] Comment on above: Performed By: #### L 500.2500, L501.2300, L500.3400 ####[facility] [address] [place], [address] Urea nitrogen [Mass/Vol] 9 mg/dL Normal 7-18 [facility] Comment on above: Performed By: #### L 500.2500, L501.2300, L500.3400 ####[facility] [address] [place], [address] Bedside Glucoseon 07-04-2024 FINGERSTICK GLU 114 mg/dL High 74-106 [facility] Comment on above: Result Comment: JUAN VILLASENOR OF PATIENT CARE PER NURSING PROTOCOL Performed By: #### L 501.080 ####[facility] [address] [place], [address] FINGERSTICK GLU 92 mg/dL Normal 74-106 [facility] Comment on above: Result Comment: JUAN GEMENT OF PATIENT CARE PER NURSING PROTOCOL Performed By: #### L 501.080 ####[facility] [address] [place], [address] FINGERSTICK GLU 91 mg/dL Normal 74-106 [facility] Comment on above: Result Comment: JUAN GEMENT OF PATIENT CARE PER NURSING PROTOCOL Performed By: #### L 501.080 ####[facility] [address] [place], [address] FINGERSTICK GLU 111 mg/dL High 74-106 [facility] Comment on above: Result Comment: JUAN GEMENT OF PATIENT CARE PER NURSING PROTOCOL Performed By: #### L 501.080 ####[facility] [address] [place], [address] FINGERSTICK GLU 124 mg/dL High -106 [facility] Comment on above: Result Comment: JUAN GEMENT OF PATIENT CARE PER NURSING PROTOCOL Performed By: #### L 501.080 ####[facility] [address] [place], [address] Bilirubin directOrdered By: Gareth Packer on 07-04-2024 Bilirubin.direct [Mass/Vol] 0.08 mg/dL 0.00-0.30 [facility] Bilirubin, totalOrdered By: Gareth Packer on 07-04-2024 Bilirubin [Mass/Vol] 0.30 mg/dL 0.20-1.00 [facility] Comment on above: For patients on eltr ombopag therapy, use of Dimension [place] TBIL is not recommended. Bilirubin, total 0.30 mg/dL 0.20-1.00 [facility] Bilirubin.direct [Mass/Vol]O rdered By: Gareth Packer on 07-04-2024 Bilirubin direct 0.08 mg/dL 0.00-0.30 [facility] CBC W/Diff, Automatedon Absolute Lymph 0.57 X10 3/uL Low 0.83-4.51 [facility] Comment on above: Performed By: #### L 100.0100 ####[facility] [address] [place], [address] Absolute Neut 2.8 X10 3/uL Normal 2.0-7.7 [facility] Comment on above: Performed By: #### L 100.0100 ####[facility] [address] [place], [address] Basophils/100 WBC (Bld) 0.0 % Normal 0-1 [facility] Comment on above: Performed By: #### L 100.0100 ####[facility] [address] [place], [address] Eosinophils/100 WBC (Bld) 0.5 % Normal 0-5 [facility] Comment on above: Performed By: #### L 100.0100 ####[facility] [address] [place], [address] Erythrocyte distribution width (RBC) [Ratio] 15.1 % High 11.6-14.6 [facility] Comment on above: Performed By: #### L 100.0100 ####[facility] [address] [place], [address] Hematocrit (Bld) [Volume fraction] 24.8 % Low 37-47 [facility] Comment on above: Performed By: #### L 100.0100 ####[facility] [address] [place], [address] Hemoglobin (Bld) [Mass/Vol] 7.8 g/dL Low 12.0-15.0 [facility] Comment on above: Performed By: #### L 100.0100 ####[facility] [address] [place], [address] IG% 1.500 High 0.0-0.9 [facility] Comment on above: Result Comment: IG% - Immature Granulocytes (promyelocytes, myelocytes andmetamyelocytes) > 1% indicates that a LEFT SHIFT is Present. Performed By: #### L 100.0100 ####[facility] [address] [place], [address] Lymphocytes/100 WBC (Bld) 14.1 % Low 19-41 [facility] Comment on above: Performed By: #### L 100.0100 ####[facility] [address] [place], [address] MCH (RBC) [Entitic mass] 31.3 pg Normal 27.0-32.0 [facility] Comment on above: Performed By: #### L 100.0100 ####[facility] [address] [place], [address] MCHC (RBC) [Mass/Vol] 31.5 g/dL Low 32-36 [facility] Comment on above: Performed By: #### L 100.0100 ####[facility] [address] [place], [address] MCV (RBC) [Entitic vol] 99.6 fL High 81-99 [facility] Comment on above: Performed By: #### L 100.0100 ####[facility] [address] [place], [address] Monocytes/100 WBC (Bld) 13.6 % High 0-10 [facility] Comment on above: Performed By: #### L 100.0100 ####[facility] [address] [place], [address] Neutrophils/100 WBC (Bld) 70.3 % High 47-70 [facility] Comment on above: Performed By: #### L 100.0100 ####[facility] [address] [place], [address] Nucleated RBC (Bld) [#/Vol] 0.5 10*3/uL Normal 0-5 [facility] Comment on above: Performed By: #### L 100.0100 ####[facility] [address] [place], [address] Platelet mean volume (Bld) [Entitic vol] 10.1 fL Normal 6.2-12.0 [facility] Comment on above: Performed By: #### L 100.0100 ####[facility] [address] [place], [address] Platelets (Bld) [#/Vol] 197 10*3/uL Normal 150-450 [facility] Comment on above: Performed By: #### L 100.0100 ####[facility] [address] [place], [address] RBC (Bld) [#/Vol] 2.49 10*6/uL Low 4.2-5.4 [facility] Comment on above: Performed By: #### L 100.0100 ####[facility] [address] [place], [address] RDW SD 49.2 fl High 35.1-43.9 [facility] Comment on above: Performed By: #### L 100.0100 ####[facility] [address] [place], [address] WBC (Bld) [#/Vol] 4.0 10*3/uL Low 4.4-11.0 [facility] Comment on above: Performed By: #### L 100.0100 ####[facility] [address] [place], [address] Consultation - Surgicalon Consultation - Surgical Normal [facility] Hemoglobin A1con 07-04-2024 HbA1c (Bld) [Mass fraction] 6.4 % High 3.8-5.6 [facility] Comment on above: Result Comment: Norm al < 5.7 % Prediabetic 5.7 - 6.4 % Diabetic >or= 6.5 % Please note range changes. Performed By: #### L 501.9985, L501.9520, L506.0250, L501.5200 ####[facility] [address] [place], [address] Laboratory - Chemistry and C hemistry - challengeOrdered By: Gareth Packer on 07-04-2024 AST [Catalytic activity/Vol] 21 U/L 15-37 [facility] Liver Profileon 07-04-2024 Albumin [Mass/Vol] 2.8 g/dL Low 3.2-5.0 [facility] Comment on above: Performed By: #### L 500.2500, L501.2300, L500.3400 ####[facility] [address] [place], [address] ALK P 64 U/L Normal 45-117 [facility] Comment on above: Performed By: #### L 500.2500, L501.2300, L500.3400 ####[facility] [address] [place], [address] ALT [Catalytic activity/Vol] 23 U/L Normal 13-56 [facility] Comment on above: Performed By: #### L 500.2500, L501.2300, L500.3400 ####[facility] [address] [place], [address] AST [Catalytic activity/Vol] 21 U/L Normal 15-37 [facility] Comment on above: Performed By: #### L 500.2500, L501.2300, L500.3400 ####[facility] [address] [place], [address] Bilirubin [Mass/Vol] 0.30 mg/dL Normal 0.20-1.00 [facility] Comment on above: Result Comment: For patients on eltrombopag therapy, use of Dimension [place] TBIL is not recommended. Performed By: #### L 500.2500, L501.2300, L500.3400 ####[facility] [address] [place], [address] Bilirubin.direct [Mass/Vol] 0.08 mg/dL Normal 0.00-0.30 [facility] Comment on above: Performed By: #### L 500.2500, L501.2300, L500.3400 ####[facility] [address] [place], [address] Globulin (S) [Mass/Vol] 3.0 g/dL Normal 2.2-4.2 [facility] Comment on above: Performed By: #### L 500.2500, L501.2300, L500.3400 ####[facility] [address] [place], [address] T PROT 5.8 g/dL Low 6.4-8.2 [facility] Comment on above: Performed By: #### L 500.2500, L501.2300, L500.3400 ####[facility] [address] [place], [address] No Panel InformationOrdered By: Gareth Packer on 07-04-2024 21 U/L 15-37 [facility] Phosphoruson 07-04-2024 Phosphate [Mass/Vol] 2.6 mg/dL Normal 2.5-4.9 [facility] Comment on above: Performed By: #### L 500.2500, L501.2300, L500.3400 ####[facility] [address] [place], [address] Phosphorus measurementOrdere d By: Jacoby Durant on 07-04-2024 Phosphorus measurement 2.6 mg/dL 2.5-4.9 [facility] Serum globulin measurementOr dered By: Gareth Packer on 07-04-2024 Globulin (S) [Mass/Vol] 3.0 g/dL 2.2-4.2 [facility] Serum globulin measurement 3.0 g/dL 2.2-4.2 [facility] Serum or plasma alanine goodrich otransferase (ALT) measurementOrdered By: Gareth Packer on 07-04-2024 ALT [Catalytic activity/Vol] 23 U/L 13-56 [facility] Serum or plasma albumin chacorta urement (mass/volume)Ordered By: Gareth Packer on 07-04-2024 Albumin [Mass/Vol] 2.8 g/dL Low 3.2-5.0 [facility] Serum or plasma alkaline sofiya sphatase measurementOrdered By: Gareth Packer on 07-04-2024 ALP [Catalytic activity/Vol] 64 U/L 45-117 [facility] Total proteinOrdered By: Indira Packer on 07-04-2024 Protein [Mass/Vol] 5.8 g/dL Low 6.4-8.2 [facility] Total protein 5.8 g/dL Low 6.4-8.2 [facility] Urine Cultureon 07-04-2024 URC Normal [facility] Comment on above: Performed By: #### M 100.2202 ####[facility] [address] [place], [place], [address] [employer] Decub and/or Erecton 07-03-2024 [employer] Decub and/or Erect Normal [facility] Albumin to globulin ratioOrd ered By: Jacoby Durant on 07-03-2024 Albumin/Globulin [Mass ratio] 1.0 {ratio} 0.9-2.4 [facility] Albumin to globulin ratio 1.0 RATIO 0.9-2.4 [facility] Bedside Glucoseon 07-03-2024 FINGERSTICK GLU 104 mg/dL Normal 74-106 [facility] Comment on above: Result Comment: JUAN GEMENT OF PATIENT CARE PER NURSING PROTOCOL Performed By: #### L 501.080 ####[facility] [address] [place], [place], [address] FINGERSTICK GLU 101 mg/dL Normal 74-106 [facility] Comment on above: Result Comment: JUAN GEMENT OF PATIENT CARE PER NURSING PROTOCOL Performed By: #### L 501.080 ####[facility] [address] [place], [address] FINGERSTICK GLU 107 mg/dL High 74-106 [facility] Comment on above: Result Comment: JUAN GEMENT OF PATIENT CARE PER NURSING PROTOCOL Performed By: #### L 501.080 ####[facility] [address] [place], [address] FINGERSTICK GLU 110 mg/dL High 74-106 [facility] Comment on above: Result Comment: JUAN GEMENT OF PATIENT CARE PER NURSING PROTOCOL Performed By: #### L 501.080 ####[facility] [address] [place], [address] CBC W/Diff, Automatedon 02-0 -2024 Absolute Lymph 0.90 X10 3/uL Normal 0.83-4.51 [facility] Comment on above: Performed By: #### L 100.0100, L501.2300, L500.4050 ####[facility] [address] [place], [address] Absolute Neut 3.6 X10 3/uL Normal 2.0-7.7 [facility] Comment on above: Performed By: #### L 100.0100, L501.2300, L500.4050 ####[facility] [address] [place], [address] Basophils/100 WBC (Bld) 0.4 % Normal 0-1 [facility] Comment on above: Performed By: #### L 100.0100, L501.2300, L500.4050 ####[facility] [address] [place], [address] Eosinophils/100 WBC (Bld) 0.4 % Normal 0-5 [facility] Comment on above: Performed By: #### L 100.0100, L501.2300, L500.4050 ####[facility] [address] [place], [address] Erythrocyte distribution width (RBC) [Ratio] 14.6 % Normal 11.6-14.6 [facility] Comment on above: Performed By: #### L 100.0100, L501.2300, L500.4050 ####[facility] [address] [place], [address] Hematocrit (Bld) [Volume fraction] 25.2 % Low 37-47 [facility] Comment on above: Performed By: #### L 100.0100, L501.2300, L500.4050 ####[facility] [address] [place], [address] Hemoglobin (Bld) [Mass/Vol] 8.4 g/dL Low 12.0-15.0 [facility] Comment on above: Performed By: #### L 100.0100, L501.2300, L500.4050 ####[facility] [address] [place], [address] IG% 1.700 High 0.0-0.9 [facility] Comment on above: Result Comment: IG% - Immature Granulocytes (promyelocytes, myelocytes andmetamyelocytes) > 1% indicates that a LEFT SHIFT is Present. Performed By: #### L 100.0100, L501.2300, L500.4050 ####[facility] [address] [place], [address] Lymphocytes/100 WBC (Bld) 16.9 % Low 19-41 [facility] Comment on above: Performed By: #### L 100.0100, L501.2300, L500.4050 ####[facility] [address] [place], [address] MCH (RBC) [Entitic mass] 31.9 pg Normal 27.0-32.0 [facility] Comment on above: Performed By: #### L 100.0100, L501.2300, L500.4050 ####[facility] [address] [place], [address] MCHC (RBC) [Mass/Vol] 33.3 g/dL Normal 32-36 [facility] Comment on above: Performed By: #### L 100.0100, L501.2300, L500.4050 ####[facility] [address] [place], [address] MCV (RBC) [Entitic vol] 95.8 fL Normal 81-99 [facility] Comment on above: Performed By: #### L 100.0100, L501.2300, L500.4050 ####[facility] [address] [place], [address] Monocytes/100 WBC (Bld) 12.9 % High 0-10 [facility] Comment on above: Performed By: #### L 100.0100, L501.2300, L500.4050 ####[facility] [address] [place], [address] Neutrophils/100 WBC (Bld) 67.7 % Normal 47-70 [facility] Comment on above: Performed By: #### L 100.0100, L501.2300, L500.4050 ####[facility] [address] [place], [address] Nucleated RBC (Bld) [#/Vol] 0.4 10*3/uL Normal 0-5 [facility] Comment on above: Performed By: #### L 100.0100, L501.2300, L500.4050 ####[facility] [address] [place], [address] Platelet mean volume (Bld) [Entitic vol] 11.0 fL Normal 6.2-12.0 [facility] Comment on above: Performed By: #### L 100.0100, L501.2300, L500.4050 ####[facility] [address] [place], [address] Platelets (Bld) [#/Vol] 170 10*3/uL Normal 150-450 [facility] Comment on above: Performed By: #### L 100.0100, L501.2300, L500.4050 ####[facility] [address] [place], [address] RBC (Bld) [#/Vol] 2.63 10*6/uL Low 4.2-5.4 [facility] Comment on above: Performed By: #### L 100.0100, L501.2300, L500.4050 ####[facility] [address] [place], [address] RDW SD 46.5 fl High 35.1-43.9 [facility] Comment on above: Performed By: #### L 100.0100, L501.2300, L500.4050 ####[facility] [address] [place], [address] WBC (Bld) [#/Vol] 5.3 10*3/uL Normal 4.4-11.0 [facility] Comment on above: Performed By: #### L 100.0100, L501.2300, L500.4050 ####[facility] [address] [place], [address] Comprehensive Metabolic Prof ilon 07-03-2024 Albumin [Mass/Vol] 3.0 g/dL Low 3.2-5.0 [facility] Comment on above: Performed By: #### L 100.0100, L501.2300, L500.4050 ####[facility] [address] [place], [address] Albumin/Globulin [Mass ratio] 1.0 {ratio} Normal 0.9-2.4 [facility] Comment on above: Performed By: #### L 100.0100, L501.2300, L500.4050 ####[facility] [address] [place], [address] ALK P 73 U/L Normal 45-117 [facility] Comment on above: Performed By: #### L 100.0100, L501.2300, L500.4050 ####[facility] [address] [place], [address] ALT [Catalytic activity/Vol] 22 U/L Normal 13-56 [facility] Comment on above: Performed By: #### L 100.0100, L501.2300, L500.4050 ####[facility] [address] [place], [address] AST [Catalytic activity/Vol] 12 U/L Low 15-37 [facility] Comment on above: Performed By: #### L 100.0100, L501.2300, L500.4050 ####[facility] [address] [place], [address] Bilirubin [Mass/Vol] 0.20 mg/dL Normal 0.20-1.00 [facility] Comment on above: Result Comment: For patients on eltrombopag therapy, use of Dimension [place] TBIL is not recommended. Performed By: #### L 100.0100, L501.2300, L500.4050 ####[facility] [address] [place], [address] BUN/CRE 16.9 RATIO Normal 10-20 [facility] Comment on above: Performed By: #### L 100.0100, L501.2300, L500.4050 ####[facility] [address] [place], [address] CA,Total 8.5 mg/dL Normal 8.5-10.1 [facility] Comment on above: Performed By: #### L 100.0100, L501.2300, L500.4050 ####[facility] [address] [place], [address] Chloride [Moles/Vol] 110 mmol/L High 98-107 [facility] Comment on above: Performed By: #### L 100.0100, L501.2300, L500.4050 ####[facility] [address] [place], [address] CO2 [Moles/Vol] 24.0 mmol/L Normal 21.0-32.0 [facility] Comment on above: Performed By: #### L 100.0100, L501.2300, L500.4050 ####[facility] [address] [place], [address] Creatinine [Mass/Vol] 0.59 mg/dL Normal 0.55-1.02 [facility] Comment on above: Result Comment: The validity of the calculated GFR GFRAA in patients over70 years has not been determined. Clinical correlation isessential. Performed By: #### L 100.0100, L501.2300, L500.4050 ####[facility] [address] [place], [address] ECRCL 71.18 ml/min Normal [facility] Comment on above: Performed By: #### L 100.0100, L501.2300, L500.4050 ####[facility] [address] [place], [address] EST GFR - AA 129 mL/min Normal >60 [facility] Comment on above: Result Comment: Afri can Icelandic GFR Calc Performed By: #### L 100.0100, L501.2300, L500.4050 ####[facility] [address] [place], [address] GAP 8 Normal 5-15 [facility] Comment on above: Performed By: #### L 100.0100, L501.2300, L500.4050 ####[facility] [address] [place], [address] GFR/1.73 sq M.predicted among non-blacks MDRD (S/P/Bld) [Vol rate/Area] 107 mL/min/{1.73_m2} Normal >60 [facility] Comment on above: Result Comment: Non- GFR Calc Performed By: #### L 100.0100, L501.2300, L500.4050 ####[facility] [address] [place], [address] Globulin (S) [Mass/Vol] 3.0 g/dL Normal 2.2-4.2 [facility] Comment on above: Performed By: #### L 100.0100, L501.2300, L500.4050 ####[facility] [address] [place], [address] Glucose [Mass/Vol] 110 mg/dL High 74-106 [facility] Comment on above: Result Comment: Fast ing Glucose result from 100 to 125 mg/dLsuggests IMPAIRED HOMEOSTASIS per A.D.A. criteria. Performed By: #### L 100.0100, L501.2300, L500.4050 ####[facility] [address] [place], [address] Potassium [Moles/Vol] 3.1 mmol/L Low 3.5-5.1 [facility] Comment on above: Performed By: #### L 100.0100, L501.2300, L500.4050 ####[facility] [address] [place], [address] Sodium [Moles/Vol] 141 mmol/L Normal 136-145 [facility] Comment on above: Performed By: #### L 100.0100, L501.2300, L500.4050 ####[facility] [address] [place], [address] T PROT 6.0 g/dL Low 6.4-8.2 [facility] Comment on above: Performed By: #### L 100.0100, L501.2300, L500.4050 ####[facility] [address] [place], [address] Urea nitrogen [Mass/Vol] 10 mg/dL Normal 7-18 [facility] Comment on above: Performed By: #### L 100.0100, L501.2300, L500.4050 ####[facility] [address] [place], [address] Ferritinon 07-03-2024 Ferritin [Mass/Vol] 325 ng/mL High 8-252 [facility] Comment on above: Performed By: #### L 503.6550, L503.6030 ####[facility] [address] [place], [address] Ferritin measurementOrdered By: Jacoby Durant on 07-03-2024 Ferritin [Mass/Vol] 325 ng/mL High 8-252 [facility] Ferritin measurement 325 ng/mL High 8-252 [facility] Iron (Unsp spec) [Mass/Mass] Ordered By: Jacoby Durant on 07-03-2024 Iron measurement (mass/mass) 44 ug/dL Low 50-170 [facility] Iron measurement (mass/mass) Ordered By: Jacoby Durant on 07-03-2024 Iron (Unsp spec) [Mass/Mass] 44 ug/dL Low 50-170 [facility] Iron saturation [Mass fracti on]Ordered By: Jacoby Durant on 07-03-2024 Serum or plasma iron saturation measurement (mass fraction) 20.3 % 15.0-55.0 [facility] Iron+Iron Binding Capacityon 07-03-2024 Iron [Mass/Vol] 44 ug/dL Low 50-170 [facility] Comment on above: Performed By: #### L 503.6550, L503.6030 ####[facility] [address] [place], [address] IRON SATURATION 20.3 Normal 15.0-55.0 [facility] Comment on above: Performed By: #### L 503.6550, L503.6030 ####[facility] [address] [place], [address] TIBC 217 ug/dL Low 250-450 [facility] Comment on above: Performed By: #### L 503.6550, L503.6030 ####[facility] [address] [place], [address] Phosphoruson 07-03-2024 Phosphate [Mass/Vol] 3.0 mg/dL Normal 2.5-4.9 [facility] Comment on above: Performed By: #### L 100.0100, L501.2300, L500.4050 ####[facility] [address] [place], [address] Serum or plasma iron saturat ion measurement (mass fraction)Ordered By: Jacoby Durant on 07-03-2024 Iron saturation [Mass fraction] 20.3 % 15.0-55.0 [facility] TIBCOrdered By: Jacoby wallace on 07-03-2024 TIBC 217 ug/dL Low 250-450 [facility] Vitamin B12on 07-03-2024 Cobalamin (Vitamin B12) [Mass/Vol] pg/mL High 211-911 [facility] Comment on above: Performed By: #### L 503.0105 ####[facility] [address] [place], [address] 12 Lead EKGon 07-02-2024 12 Lead EKG Normal [facility] Alcohol, Blood (Medical)-Ser umon 07-02-2024 SERUM ETOH < 3.0 Normal [facility] Comment on above: Result Comment: The serum:whole blood ethanol ratio is approximately 1.14and varies slightly with hematocrit.Medical Alcohol reference interval and critical value innon-tolerant individuals; 50 - 100 Impairment 100 Intoxication 100 - 250 Severe Poisoning 250 - 400 Deep/possible fatal coma Performed By: #### L 501.9100, L505.5000 ####[facility] [address] [place], [address] Ammoniaon 07-02-2024 Ammonia (P) [Moles/Vol] 14.0 umol/L Normal 11-32 [facility] Comment on above: Performed By: #### L 501.4020, L503.5510, L500.4050, L100.0100 ####[facility] [address] [place], [address] Bacteria LM.HPF (Urine sed) [#/Area]Ordered By: Tomas Swann on 07-02-2024 Urine sediment bacteria count by microscopy (number/high power field) 4+ /hpf None Seen [facility] Bedside Glucoseon 07-02-2024 FINGERSTICK GLU 79 mg/dL Normal 74-106 [facility] Comment on above: Result Comment: JUAN VILLASENOR OF PATIENT CARE PER NURSING PROTOCOL Performed By: #### L 501.080 ####[facility] [address] [place], [address] Bilirubin Test strip Ql (U)O rdered By: Tomas Swann on 07-02-2024 Bilirubin Ql (U) Negative Negative [facility] Urine total bilirubin detection by test strip Negative Negative [facility] Brain without Contraston Brain without Contrast Normal [facility] Brain/Head without Contrasto n 07-02-2024 Brain/Head without Contrast Normal [facility] CBC W/Diff, Automatedon 06-04 Absolute Lymph 0.46 X10 3/uL Low 0.83-4.51 [facility] Comment on above: Performed By: #### L 501.4020, L503.5510, L500.4050, L100.0100 ####[facility] [address] [place], [address] Absolute Neut 5.0 X10 3/uL Normal 2.0-7.7 [facility] Comment on above: Performed By: #### L 501.4020, L503.5510, L500.4050, L100.0100 ####[facility] [address] [place], [address] Basophils/100 WBC (Bld) 0.2 % Normal 0-1 [facility] Comment on above: Performed By: #### L 501.4020, L503.5510, L500.4050, L100.0100 ####[facility] [address] [place], [address] Eosinophils/100 WBC (Bld) 0.2 % Normal 0-5 [facility] Comment on above: Performed By: #### L 501.4020, L503.5510, L500.4050, L100.0100 ####[facility] [address] [place], [address] Erythrocyte distribution width (RBC) [Ratio] 14.3 % Normal 11.6-14.6 [facility] Comment on above: Performed By: #### L 501.4020, L503.5510, L500.4050, L100.0100 ####[facility] [address] [place], [address] Hematocrit (Bld) [Volume fraction] 25.6 % Low 37-47 [facility] Comment on above: Performed By: #### L 501.4020, L503.5510, L500.4050, L100.0100 ####[facility] [address] [place], [address] Hemoglobin (Bld) [Mass/Vol] 8.4 g/dL Low 12.0-15.0 [facility] Comment on above: Performed By: #### L 501.4020, L503.5510, L500.4050, L100.0100 ####[facility] [address] [place], [address] IG% 1.900 High 0.0-0.9 [facility] Comment on above: Result Comment: IG% - Immature Granulocytes (promyelocytes, myelocytes andmetamyelocytes) > 1% indicates that a LEFT SHIFT is Present. Performed By: #### L 501.4020, L503.5510, L500.4050, L100.0100 ####[facility] [address] [place], [address] Lymphocytes/100 WBC (Bld) 7.4 % Low 19-41 [facility] Comment on above: Performed By: #### L 501.4020, L503.5510, L500.4050, L100.0100 ####[facility] [address] [place], [address] MCH (RBC) [Entitic mass] 31.2 pg Normal 27.0-32.0 [facility] Comment on above: Performed By: #### L 501.4020, L503.5510, L500.4050, L100.0100 ####[facility] [address] [place], [address] MCHC (RBC) [Mass/Vol] 32.8 g/dL Normal 32-36 [facility] Comment on above: Performed By: #### L 501.4020, L503.5510, L500.4050, L100.0100 ####[facility] [address] [place], [address] MCV (RBC) [Entitic vol] 95.2 fL Normal 81-99 [facility] Comment on above: Performed By: #### L 501.4020, L503.5510, L500.4050, L100.0100 ####[facility] [address] [place], [address] Monocytes/100 WBC (Bld) 10.3 % High 0-10 [facility] Comment on above: Performed By: #### L 501.4020, L503.5510, L500.4050, L100.0100 ####[facility] [address] [place], [address] Neutrophils/100 WBC (Bld) 80.0 % High 47-70 [facility] Comment on above: Performed By: #### L 501.4020, L503.5510, L500.4050, L100.0100 ####[facility] [address] [place], [address] Nucleated RBC (Bld) [#/Vol] 0.3 10*3/uL Normal 0-5 [facility] Comment on above: Performed By: #### L 501.4020, L503.5510, L500.4050, L100.0100 ####[facility] [address] [place], [address] Platelet mean volume (Bld) [Entitic vol] 10.9 fL Normal 6.2-12.0 [facility] Comment on above: Performed By: #### L 501.4020, L503.5510, L500.4050, L100.0100 ####[facility] [address] [place], [address] Platelets (Bld) [#/Vol] 156 10*3/uL Normal 150-450 [facility] Comment on above: Performed By: #### L 501.4020, L503.5510, L500.4050, L100.0100 ####[facility] [address] [place], [address] RBC (Bld) [#/Vol] 2.69 10*6/uL Low 4.2-5.4 [facility] Comment on above: Performed By: #### L 501.4020, L503.5510, L500.4050, L100.0100 ####[facility] [address] [place], [address] RDW SD 45.7 fl High 35.1-43.9 [facility] Comment on above: Performed By: #### L 501.4020, L503.5510, L500.4050, L100.0100 ####[facility] [address] [place], [address] WBC (Bld) [#/Vol] 6.2 10*3/uL Normal 4.4-11.0 [facility] Comment on above: Performed By: #### L 501.4020, L503.5510, L500.4050, L100.0100 ####[facility] [address] [place], [address] Chest 1 View (Portable)on Chest 1 View (Portable) Normal [facility] Cholesterol [Mass/Vol]Ordere d By: Jacoby Durant on 07-02-2024 Serum or plasma cholesterol measurement (mass/volume) 109 mg/dL <200 [facility] Clarity (U)Ordered By: Tomas Swann on 07-02-2024 Urine clarity Sl. Cloudy Clear [facility] Color (U)Ordered By: Tomas mata on 07-02-2024 Urine color determination Yellow Yellow [facility] Comprehensive Metabolic Prof ilon 07-02-2024 Albumin [Mass/Vol] 3.3 g/dL Normal 3.2-5.0 [facility] Comment on above: Order Comment: 'TROP ' Serial specimen #1, #2 or #3: 1 Performed By: #### L 501.4020, L503.5510, L500.4050, L100.0100 ####[facility] [address] [place], [address] Albumin/Globulin [Mass ratio] 1.0 {ratio} Normal 0.9-2.4 [facility] Comment on above: Order Comment: 'TROP ' Serial specimen #1, #2 or #3: 1 Performed By: #### L 501.4020, L503.5510, L500.4050, L100.0100 ####[facility] [address] [place], [address] ALK P 72 U/L Normal 45-117 [facility] Comment on above: Order Comment: 'TROP ' Serial specimen #1, #2 or #3: 1 Performed By: #### L 501.4020, L503.5510, L500.4050, L100.0100 ####[facility] [address] [place], [address] ALT [Catalytic activity/Vol] 23 U/L Normal 13-56 [facility] Comment on above: Order Comment: 'TROP ' Serial specimen #1, #2 or #3: 1 Performed By: #### L 501.4020, L503.5510, L500.4050, L100.0100 ####[facility] [address] [place], [address] AST [Catalytic activity/Vol] 17 U/L Normal 15-37 [facility] Comment on above: Order Comment: 'TROP ' Serial specimen #1, #2 or #3: 1 Performed By: #### L 501.4020, L503.5510, L500.4050, L100.0100 ####[facility] [address] [place], [address] Bilirubin [Mass/Vol] 0.40 mg/dL Normal 0.20-1.00 [facility] Comment on above: Order Comment: 'TROP ' Serial specimen #1, #2 or #3: 1 Result Comment: For patients on eltrombopag therapy, use of Dimension [place] TBIL is not recommended. Performed By: #### L 501.4020, L503.5510, L500.4050, L100.0100 ####[facility] [address] [place], [address] BUN/CRE 20.8 RATIO High 10-20 [facility] Comment on above: Order Comment: 'TROP ' Serial specimen #1, #2 or #3: 1 Performed By: #### L 501.4020, L503.5510, L500.4050, L100.0100 ####[facility] [address] [place], [address] CA,Total 9.1 mg/dL Normal 8.5-10.1 [facility] Comment on above: Order Comment: 'TROP ' Serial specimen #1, #2 or #3: 1 Performed By: #### L 501.4020, L503.5510, L500.4050, L100.0100 ####[facility] [address] [place], [address] Chloride [Moles/Vol] 108 mmol/L High 98-107 [facility] Comment on above: Order Comment: 'TROP ' Serial specimen #1, #2 or #3: 1 Performed By: #### L 501.4020, L503.5510, L500.4050, L100.0100 ####[facility] [address] [place], [address] CO2 [Moles/Vol] 21.0 mmol/L Normal 21.0-32.0 [facility] Comment on above: Order Comment: 'TROP ' Serial specimen #1, #2 or #3: 1 Performed By: #### L 501.4020, L503.5510, L500.4050, L100.0100 ####[facility] [address] [place], [address] Creatinine [Mass/Vol] 0.62 mg/dL Normal 0.55-1.02 [facility] Comment on above: Order Comment: 'TROP ' Serial specimen #1, #2 or #3: 1 Result Comment: The validity of the calculated GFR GFRAA in patients over70 years has not been determined. Clinical correlation isessential. Performed By: #### L 501.4020, L503.5510, L500.4050, L100.0100 ####[facility] [address] [place], [address] ECRCL 72.34 ml/min Normal [facility] Comment on above: Order Comment: 'TROP ' Serial specimen #1, #2 or #3: 1 Performed By: #### L 501.4020, L503.5510, L500.4050, L100.0100 ####[facility] [address] [place], [address] EST GFR - AA 121 mL/min Normal >60 [facility] Comment on above: Order Comment: 'TROP ' Serial specimen #1, #2 or #3: 1 Result Comment: Afri can Icelandic GFR Calc Performed By: #### L 501.4020, L503.5510, L500.4050, L100.0100 ####[facility] [address] [place], [address] GAP 12 Normal 5-15 [facility] Comment on above: Order Comment: 'TROP ' Serial specimen #1, #2 or #3: 1 Performed By: #### L 501.4020, L503.5510, L500.4050, L100.0100 ####[facility] [address] [place], [address] GFR/1.73 sq M.predicted among non-blacks MDRD (S/P/Bld) [Vol rate/Area] 100 mL/min/{1.73_m2} Normal >60 [facility] Comment on above: Order Comment: 'TROP ' Serial specimen #1, #2 or #3: 1 Result Comment: Non- GFR Calc Performed By: #### L 501.4020, L503.5510, L500.4050, L100.0100 ####[facility] [address] [place], [address] Globulin (S) [Mass/Vol] 3.3 g/dL Normal 2.2-4.2 [facility] Comment on above: Order Comment: 'TROP ' Serial specimen #1, #2 or #3: 1 Performed By: #### L 501.4020, L503.5510, L500.4050, L100.0100 ####[facility] [address] [place], [address] Glucose [Mass/Vol] 125 mg/dL High 74-106 [facility] Comment on above: Order Comment: 'TROP ' Serial specimen #1, #2 or #3: 1 Result Comment: Fast ing Glucose result from 100 to 125 mg/dLsuggests IMPAIRED HOMEOSTASIS per A.D.A. criteria. Performed By: #### L 501.4020, L503.5510, L500.4050, L100.0100 ####[facility] [address] [place], [address] Potassium [Moles/Vol] 2.8 mmol/L Low 3.5-5.1 [facility] Comment on above: Order Comment: 'TROP ' Serial specimen #1, #2 or #3: 1 Performed By: #### L 501.4020, L503.5510, L500.4050, L100.0100 ####[facility] [address] [place], [address] Sodium [Moles/Vol] 141 mmol/L Normal 136-145 [facility] Comment on above: Order Comment: 'TROP ' Serial specimen #1, #2 or #3: 1 Performed By: #### L 501.4020, L503.5510, L500.4050, L100.0100 ####[facility] [address] [place], [address] T PROT 6.6 g/dL Normal 6.4-8.2 [facility] Comment on above: Order Comment: 'TROP ' Serial specimen #1, #2 or #3: 1 Performed By: #### L 501.4020, L503.5510, L500.4050, L100.0100 ####[facility] [address] [place], [address] Urea nitrogen [Mass/Vol] 13 mg/dL Normal 7-18 [facility] Comment on above: Order Comment: 'TROP ' Serial specimen #1, #2 or #3: 1 Performed By: #### L 501.4020, L503.5510, L500.4050, L100.0100 ####[facility] [address] [place], [address] Emergency Department Summary on 07-02-2024 Emergency Department Summary Normal [facility] Folates, (Folic Acid)on 06-04 FOLATES 11.60 ng/mL Normal 3.1-55.4 [facility] Comment on above: Order Comment: Has P atient had X-rays with Contrast this admission? [place] Performed By: #### L 501.9985, L501.9520, L506.0250, L501.5200 ####[facility] [address] [place], [address] Folic acid measurementOrdere d By: Jacoby Durant on 07-02-2024 Folic acid measurement 11.60 ng/mL 3.1-55.[address] [facility] H AND P Exam - Hospitaliston 07-02-2024 H&P Exam - Hospitalist Normal [facility] HbA1c (Bld) [Mass fraction]O rdered By: Jacoby Durant on 07-02-2024 Hemoglobin A1c percentage 6.4 % High 3.8-5.6 [facility] Hemoglobin A1c percentageOrd ered By: Jacoby Durant on 07-02-2024 HbA1c (Bld) [Mass fraction] 6.4 % High 3.8-5.6 [facility] Comment on above: Normal < 5.7 % Predi abetic 5.7 - 6.4 % Diabetic >or= 6.5 % Please note range changes. High density lipoprotein (HD L) measurementOrdered By: Jacoby Durant on 07-02-2024 Cholesterol in HDL [Mass/Vol] 39 mg/dL Low >40 [facility] Comment on above: The drugs N-Acetylcy steine and Metamizole may falsely depress this assay. Reference Range HDL <40 mg/dL Low HDL Cholesterol HDL >or= 60 mg/dL High HDL Cholesterol High density lipoprotein (HDL) measurement 39 mg/dL Low >40 [facility] Ketones Test strip Ql (U)Ord ered By: Tomas Swann on 07-02-2024 Ketones Ql (U) 150 mg/dl Abnormal Negative [facility] Comment on above: CRITICAL VALUE *HCRI TICAL VALUE CALLED TO [id number]/31/25 1858 Ginny Fierro.RESULTS READ BACK BY SAME. Urine ketones detection by test strip 150 mg/dl Abnormal Negative [facility] L501.4020on 07-02-2024 TROPONIN-I HS 4 pg/mL Normal 3.0-54.0 [facility] Comment on above: Order Comment: 'TROP ' Serial specimen #1, #2 or #3: 1 Result Comment: Guy sanchez Note: New Test Units and Gender Specific Reference Ranges. For more information see Policy Stat Procedure [place] High Sensitivity Troponin (TNIH) and attachments. Performed By: #### L 501.4020, L503.5510, L500.4050, L100.0100 ####[facility] [address] [place], [place], [id number] Leukocyte esterase Test stri p Ql (U)Ordered By: Tomas Swann on 07-02-2024 Urine leukocyte esterase detection by dipstick 25 /ul High Negative [facility] Lipid Profileon 07-02-2024 Cholesterol [Mass/Vol] 109 mg/dL Normal 200 [facility] Comment on above: Result Comment: <200 mg/dL Desirable 200-240 mg/dL Borderline >240 mg/dL High Risk Performed By: #### L 500.4100 ####[facility] [address] [place], [place], [id number] Cholesterol in HDL [Mass/Vol] 39 mg/dL Low [facility] Comment on above: Result Comment: The drugs N-Acetylcysteine and Metamizole may falselydepress this assay. Reference Range HDL <40 mg/dL Low HDL Cholesterol HDL >or= 60 mg/dL High HDL Cholesterol Performed By: #### L 500.4100 ####[facility] [address] [place], [address] Cholesterol in LDL [Mass/Vol] 51 mg/dL Normal 0-130 [facility] Comment on above: Performed By: #### L 500.4100 ####[facility] [address] [place], [address] Cholesterol in VLDL [Mass/Vol] 19 mg/dL Normal 5-40 [facility] Comment on above: Performed By: #### L 500.4100 ####[facility] [address] [place], [address] Triglyceride [Mass/Vol] 97 mg/dL Normal [facility] Comment on above: Result Comment: The drugs N-Acetylcysteine and Metamizole may falselydepress this assay.Serum Triglycerides Reference Interval Normal <150 mg/dL Borderline high 150 - 199 mg/dL High 200 - 499 mg/dL Very High > or = 500 mg/dL Performed By: #### L 500.4100 ####[facility] [address] [place], [address] Low density lipoprotein (LDL ) cholesterol measurementOrdered By: Jacoby Durant on 07-02-2024 Cholesterol in LDL [Mass/Vol] 51 mg/dL 0-130 [facility] Low density lipoprotein (LDL) cholesterol measurement 51 mg/dL 0-130 [facility] Magnesiumon 07-02-2024 Magnesium [Mass/Vol] 1.3 mg/dL Low 1.6-2.6 [facility] Comment on above: Order Comment: Has P atient had X-rays with Contrast this admission? N Performed By: #### L 501.9985, L501.9520, L506.0250, L501.5200 ####[facility] [address] [place], [address] Magnesium measurementOrdered By: Jacoby Durant on 07-02-2024 Magnesium [Mass/Vol] 1.3 mg/dL Low 1.6-2.6 [facility] Magnesium measurement 1.3 mg/dL Low 1.6-2.6 [facility] Microscopic analysis of urin e for red blood cells (RBC)Ordered By: Tomas Swann on 07-02-2024 Microscopic analysis of urine for red blood cells (RBC) 0 SEEN /hpf 0-5 [facility] Microscopic analysis of urine for red blood cells (RBC) 0 SEEN /hpf [facility] Mucus LM Ql (Urine sed)Order ed By: Tomas Swann on 07-02-2024 Mucus Ql (Urine sed) 0 SEEN /hpf [facility] Nitrite Test strip Ql (U)Ord ered By: Tomas Swann on 07-02-2024 Nitrite Ql (U) Positive High Negative [facility] Urine nitrite test by dipstick Positive High Negative [facility] No Panel InformationOrdered By: Tomas Swann on 07-02-2024 Urine Drug Screen Comment [facility] Comment on above: CONFIRMATORY TESTING FOR ALL POSITIVE URINE DRUG SCREENRESULTS WILL ONLY BE SENT OUT UPON PHYSICIAN ORDER. VISTA Urine Drug Screen methods provide only preliminaryanalytical test results. A more specific alternate chemicalmethod must be used in order to obtain a confirmedanalytical result. Gas chromatography/mass spectrometery(GC/MS) is the preferred confirmatory method. Clinicalconsideration and professional judgement should be appliedto any drug of abuse test result, particularly whenpreliminary positive results are used. URINE TCA TESTING MUST BE ORDERED SEPARATELY. USE TESTMNEMONIC: UTCA [facility] Protein Test strip Ql (U)Ord ered By: Tomas Swann on 07-02-2024 Protein Ql (U) 30 mg/dl High Negative [facility] Urine protein assay by test strip, semi-quantitative 30 mg/dl High Negative [facility] Quantitative urine opiates m easurementOrdered By: Tomas Swann on 07-02-2024 Opiates Ql (U) Negative < 300 ng/mL [facility] Serum ethanol measurementOrd ered By: Tomas Swann on 07-02-2024 Serum ethanol measurement < 3.0 mg/dL [facility] Serum or plasma cholesterol measurement (mass/volume)Ordered By: Jacoby Durant on 07-02-2024 Cholesterol [Mass/Vol] 109 mg/dL <200 [facility] [facility] Comment on above: <200 mg/dL Desirable 200-240 mg/dL Borderline >240 mg/dL High Risk Serum or plasma thyroid stim ulating hormone (TSH) measurement (units/volume)Ordered By: Jacoby Durant on 07-02-2024 TSH Qn 0.999 uIU/mL 0.358-3.740 [facility] Specific gravity (U) [Rel de nsity]Ordered By: Tomas Swann on 07-02-2024 Urine specific gravity measurement 1.015 1.002-1.030 [facility] Squamous epithelial cells de tection in urine sediment by light microscopyOrdered By: Tomas Swann on 07-02-2024 Epithelial cells.squamous LM Ql (Urine sed) 0 SEEN /hpf 5-10 [facility] TSH QnOrdered By: Jacoby lopez on 07-02-2024 Serum or plasma thyroid stimulating hormone (TSH) measurement (units/volume) 0.999 uIU/mL 0.358-3.740 [facility] Thyroid Stim Hormone (TSH)on 07-02-2024 TSH 0.999 uIU/mL Normal 0.358-3.740 [facility] Comment on above: Order Comment: Has P marianelaient had X-rays with Contrast this admission? N Performed By: #### L 501.9985, L501.9520, L506.0250, L501.5200 ####[facility] [address] [place], [address] Triglycerides measurementOrd ered By: Jacoby Durant on 07-02-2024 Triglyceride [Mass/Vol] 97 mg/dL <199 [facility] Comment on above: The drugs N-Acetylcy steine and Metamizole may falsely depress this assay.Serum Triglycerides Reference Interval Normal <150 mg/dL Borderline high 150 - 199 mg/dL High 200 - 499 mg/dL Very High > or = 500 mg/dL Triglycerides measurement 97 mg/dL <199 [facility] Troponin IOrdered By: Tomas samuel on 07-02-2024 Troponin I 4 pg/mL 3.0-54.0 [facility] Comment on above: Please Note: New Vernell t Units and Gender Specific Reference Ranges. For more information see Policy Stat Procedure [place] High Sensitivity Troponin (TNIH) and attachments. Troponin I 4 pg/mL 3.0-54.0 [facility] Urinalysis, Completeon 07-02 BACTERIA 4+ /hpf Normal None Seen [facility] Comment on above: Order Comment: ALEAH TER SPECIMEN Performed By: #### L 400.0001 ####[facility] [address] [place], [address] WBC 0-5 SEEN Normal 0-5 [facility] Comment on above: Order Comment: ALEAH TER SPECIMEN Performed By: #### L 400.0001 ####[facility] [address] [place], [address] EPI,SQUAMOUS 0 SEEN Normal 5-10 [facility] Comment on above: Order Comment: ALEAH TER SPECIMEN Performed By: #### L 400.0001 ####[facility] [address] [place], [address] Mucus Ql (Urine sed) 0 SEEN Normal [facility] Comment on above: Order Comment: ALEAH TER SPECIMEN Performed By: #### L 400.0001 ####[facility] [address] [place], [address] RBC 0 SEEN Normal 0-5 [facility] Comment on above: Order Comment: ALEAH TER SPECIMEN Performed By: #### L 400.0001 ####[facility] [address] [place], [address] Urine Drug Screen (VISTA)on 07-02-2024 AMPHETAMINES Negative Normal <1000 ng/mL [facility] Comment on above: Performed By: #### L 501.9100, L505.5000 ####[facility] [address] [place], [address] BARBITIURATES Negative Normal < 200 ng/mL [facility] Comment on above: Performed By: #### L 501.9100, L505.5000 ####[facility] [address] [place], [address] BENZODIAZIPINE Negative Normal < 200 ng/mL [facility] Comment on above: Performed By: #### L 501.9100, L505.5000 ####[facility] [address] [place], [address] COCAINE Negative Normal < 300 ng/mL [facility] Comment on above: Performed By: #### L 501.9100, L505.5000 ####[facility] [address] [place], [address] ECSTACY Negative Normal < 500 ng/mL [facility] Comment on above: Performed By: #### L 501.9100, L505.5000 ####[facility] [address] [place], [address] METHADONE Negative Normal < 300 ng/mL [facility] Comment on above: Performed By: #### L 501.9100, L505.5000 ####[facility] [address] [place], [address] OPIATES Negative Normal < 300 ng/mL [facility] Comment on above: Performed By: #### L 501.9100, L505.5000 ####[facility] [address] [place], [address] PCP Negative Normal < 25 ng/mL [facility] Comment on above: Performed By: #### L 501.9100, L505.5000 ####[facility] [address] [place], [address] THC Negative Normal < 50 ng/mL [facility] Comment on above: Performed By: #### L 501.9100, L505.5000 ####[facility] [address] [place], [address] VISTA UDS PH 6 Normal [facility] Comment on above: Performed By: #### L 501.9100, L505.5000 ####[facility] [address] [place], [address] Urine amphetamine measuremen tOrdered By: Tomas Swann on 07-02-2024 Amphetamines Ql (U) Negative <1000 ng/mL [facility] Urine amphetamine measurement Negative < 50 ng/mL [facility] Urine benzodiazepine levelOr dered By: Tomas Swann on 07-02-2024 Benzodiazepines Ql (U) Negative < 200 ng/mL [facility] Urine blood detectionOrdered By: Tomas Swann on 07-02-2024 Urine blood detection 10 /ul High Negative [facility] Urine clarityOrdered By: Zuleika Swann on 07-02-2024 Clarity (U) Sl. Cloudy Clear [facility] Urine cocaine levelOrdered B y: Tomas Swann on 07-02-2024 Cocaine Ql (U) Negative < 300 ng/mL [facility] Urine color determinationOrd ered By: Tomas Swann on 07-02-2024 Color (U) Yellow Yellow [facility] Urine cultureOrdered By: Zuleika Swann on 07-02-2024 Bacteria identified Cx Nom (U) Escherichia coli Abnormal [facility] Urine culture Escherichia coli Abnormal [facility] Urine ehglp-8-bpommvukifrojx abinol (THC) measurementOrdered By: Tomas Swann on 07-02-2024 Cannabinoids Screen Ql (U) Negative < 50 ng/mL [facility] Urine glucose detectionOrder ed By: Tomas Swann on 07-02-2024 Glucose Ql (U) Normal mg/dl Normal [facility] Urine glucose detection Normal mg/dl Normal [facility] Urine leukocyte esterase det ection by dipstickOrdered By: Tomas Swann on 07-02-2024 Leukocyte esterase Test strip Ql (U) 25 /ul High Negative [facility] Urine pHOrdered By: Tomas carranza on 07-02-2024 pH (U) 6.0 [pH] 5.0 - 8.0 [facility] Urine phencyclidine (PCP) de tectionOrdered By: Tomas Swann on 07-02-2024 Phencyclidine Ql (U) Negative < 25 ng/mL [facility] Urine sediment bacteria coun t by microscopy (number/high power field)Ordered By: Tomas Swann on 07-02-2024 Bacteria LM.HPF (Urine sed) [#/Area] 4 /[HPF] None Seen [facility] Urine specific gravity measu rementOrdered By: Tomas Swann on 07-02-2024 Specific gravity (U) [Rel density] 1.015 1.002-1.030 [facility] Urine urobilinogen measureme ntOrdered By: Tomas Swann on 07-02-2024 Urobilinogen Ql (U) Normal mg/dl Normal [facility] Venous blood ammonia measure mentOrdered By: Tomas Swann on 07-02-2024 Ammonia (P) [Moles/Vol] 14.0 umol/L [facility] Venous blood ammonia measurement 14.0 umol/L [facility] Very low density lipoprotein (VLDL) cholesterol measurementOrdered By: Jacoby Durant on 07-02-2024 Very low density lipoprotein (VLDL) cholesterol measurement 19 mg/dL 5-40 [facility] Very low density lipoprotein (VLDL) cholesterol measurement 19 mg/dL 5-40 [facility] Vitamin B12 measurementOrder ed By: Jacoby Durant on 07-02-2024 Vitamin B12 measurement > 2000 pg/mL High 211-911 [facility] White blood cell countOrdere d By: Tomas Swann on 07-02-2024 White blood cell count 0-5 SEEN /hpf 0-5 [facility] White blood cell count 0-5 SEEN /hpf 0-5 [facility] pH (U)Ordered By: Tomas Merchant ca on 07-02-2024 Urine pH 6.0 5.0 - 8.0 [facility] Basic Metabolic Profile (BMP )on 06-28-2024 BUN/CRE 19.9 RATIO Normal 10-20 [facility] Comment on above: Performed By: #### L 100.0100, L500.2500, L501.5200 ####[facility] [address] [place], [address] CA,Total 9.8 mg/dL Normal 8.5-10.1 [facility] Comment on above: Performed By: #### L 100.0100, L500.2500, L501.5200 ####[facility] [address] [place], [address] Chloride [Moles/Vol] 105 mmol/L Normal 98-107 [facility] Comment on above: Performed By: #### L 100.0100, L500.2500, L501.5200 ####[facility] [address] [place], [address] CO2 [Moles/Vol] 24.0 mmol/L Normal 21.0-32.0 [facility] Comment on above: Performed By: #### L 100.0100, L500.2500, L501.5200 ####[facility] [address] [place], [address] Creatinine [Mass/Vol] 0.76 mg/dL Normal 0.55-1.02 [facility] Comment on above: Result Comment: The validity of the calculated GFR GFRAA in patients over70 years has not been determined. Clinical correlation isessential. Performed By: #### L 100.0100, L500.2500, L501.5200 ####[facility] [address] [place], [address] ECRCL 75.11 ml/min Normal [facility] Comment on above: Performed By: #### L 100.0100, L500.2500, L501.5200 ####[facility] [address] [place], [address] EST GFR - AA 98 mL/min Normal >60 [facility] Comment on above: Result Comment: Afri can Icelandic GFR Calc Performed By: #### L 100.0100, L500.2500, L501.5200 ####[facility] [address] [place], [address] GAP 10 Normal 5-15 [facility] Comment on above: Performed By: #### L 100.0100, L500.2500, L501.5200 ####[facility] [address] [place], [address] GFR/1.73 sq M.predicted among non-blacks MDRD (S/P/Bld) [Vol rate/Area] 81 mL/min/{1.73_m2} Normal >60 [facility] Comment on above: Result Comment: Non- GFR Calc Performed By: #### L 100.0100, L500.2500, L501.5200 ####[facility] [address] [place], [address] Glucose [Mass/Vol] 117 mg/dL High 74-106 [facility] Comment on above: Result Comment: Fast ing Glucose result from 100 to 125 mg/dLsuggests IMPAIRED HOMEOSTASIS per A.D.A. criteria. Performed By: #### L 100.0100, L500.2500, L501.5200 ####[facility] [address] [place], [address] Potassium [Moles/Vol] 3.2 mmol/L Low 3.5-5.1 [facility] Comment on above: Performed By: #### L 100.0100, L500.2500, L501.5200 ####[facility] [address] [place], [address] Sodium [Moles/Vol] 139 mmol/L Normal 136-145 [facility] Comment on above: Performed By: #### L 100.0100, L500.2500, L501.5200 ####[facility] [address] [place], [address] Urea nitrogen [Mass/Vol] 15 mg/dL Normal 7-18 [facility] Comment on above: Performed By: #### L 100.0100, L500.2500, L501.5200 ####[facility] [address] [place], [address] CBC W/Diff, Automatedon 06-03 PLT EST MKD DEC Normal [facility] Comment on above: Performed By: #### L 100.0100, L500.2500, L501.5200 ####[facility] [address] [place], [address] Magnesiumon 06-28-2024 Magnesium [Mass/Vol] 1.8 mg/dL Normal 1.6-2.6 [facility] Comment on above: Performed By: #### L 100.0100, L500.2500, L501.5200 ####[facility] [address] [place], [address] Oncology Visit Reporton 06-03 Oncology Visit Report Normal [facility] Platelet estimateOrdered By: Leighann HernandezEileen on 06-28-2024 Platelets LM Ql (Bld) MKD DEC [facility] Platelets LM Ql (Bld)Ordered By: Leighann Eileen on 06-28-2024 Platelet estimate MKD DEC [facility] CDIFF (PCR)on 06-18-2024 CDIFF Pending 027 027 NAP1-B1 Presumptive Negative *for epidemiolologic???use C. Diff PCR Negative- No toxigenic C. Diff Detected Normal [facility] Comment on above: Performed By: #### M 100.2796, M100.637 ####[facility] [address] [place], [address] Clostridium difficile detect ion by polymerase chain reactionOrdered By: Leighann Arellano on 06-18-2024 C. difficile DNA JOSELINE+probe Ql (Unsp spec) [facility] ENTERIC PATHOGEN PANEL STOOL on 06-18-2024 EP PANEL Normal [facility] Comment on above: Performed By: #### M 100.6796, M100.637 ####[facility] [address] [place], [address] CBC W/Diff, Automatedon 06-02 Absolute Lymph 0.76 X10 3/uL Low 0.83-4.51 [facility] Comment on above: Performed By: #### L 100.0100, L500.4050 ####[facility] [address] [place], [address] Absolute Neut 9.5 X10 3/uL High 2.0-7.7 [facility] Comment on above: Performed By: #### L 100.0100, L500.4050 ####[facility] [address] [place], [address] Basophils/100 WBC (Bld) 0.5 % Normal 0-1 [facility] Comment on above: Performed By: #### L 100.0100, L500.4050 ####[facility] [address] [place], [address] Eosinophils/100 WBC (Bld) 0.1 % Normal 0-5 [facility] Comment on above: Performed By: #### L 100.0100, L500.4050 ####[facility] [address] [place], [address] Erythrocyte distribution width (RBC) [Ratio] 13.7 % Normal 11.6-14.6 [facility] Comment on above: Performed By: #### L 100.0100, L500.4050 ####[facility] [address] [place], [address] Hematocrit (Bld) [Volume fraction] 35.0 % Low 37-47 [facility] Comment on above: Performed By: #### L 100.0100, L500.4050 ####[facility] [address] [place], [address] Hemoglobin (Bld) [Mass/Vol] 11.3 g/dL Low 12.0-15.0 [facility] Comment on above: Performed By: #### L 100.0100, L500.4050 ####[facility] [address] [place], [address] IG% 0.700 Normal 0.0-0.9 [facility] Comment on above: Result Comment: IG% - Immature Granulocytes (promyelocytes, myelocytes andmetamyelocytes) > 1% indicates that a LEFT SHIFT is Present. Performed By: #### L 100.0100, L500.4050 ####[facility] [address] [place], [address] Lymphocytes/100 WBC (Bld) 6.7 % Low 19-41 [facility] Comment on above: Performed By: #### L 100.0100, L500.4050 ####[facility] [address] [place], [address] MCH (RBC) [Entitic mass] 31.4 pg Normal 27.0-32.0 [facility] Comment on above: Performed By: #### L 100.0100, L500.4050 ####[facility] [address] [place], [address] MCHC (RBC) [Mass/Vol] 32.3 g/dL Normal 32-36 [facility] Comment on above: Performed By: #### L 100.0100, L500.4050 ####[facility] [address] [place], [address] MCV (RBC) [Entitic vol] 97.2 fL Normal 81-99 [facility] Comment on above: Performed By: #### L 100.0100, L500.4050 ####[facility] [address] [place], [address] Monocytes/100 WBC (Bld) 8.4 % Normal 0-10 [facility] Comment on above: Performed By: #### L 100.0100, L500.4050 ####[facility] [address] [place], [address] Neutrophils/100 WBC (Bld) 83.6 % High 47-70 [facility] Comment on above: Performed By: #### L 100.0100, L500.4050 ####[facility] [address] [place], [address] Nucleated RBC (Bld) [#/Vol] 0 10*3/uL Normal 0-5 [facility] Comment on above: Performed By: #### L 100.0100, L500.4050 ####[facility] [address] [place], [address] Platelet mean volume (Bld) [Entitic vol] 10.0 fL Normal 6.2-12.0 [facility] Comment on above: Performed By: #### L 100.0100, L500.4050 ####[facility] [address] [place], [address] Platelets (Bld) [#/Vol] 479 10*3/uL High 150-450 [facility] Comment on above: Performed By: #### L 100.0100, L500.4050 ####[facility] [address] [place], [address] RBC (Bld) [#/Vol] 3.60 10*6/uL Low 4.2-5.4 [facility] Comment on above: Performed By: #### L 100.0100, L500.4050 ####[facility] [address] [place], [address] RDW SD 47.2 fl High 35.1-43.9 [facility] Comment on above: Performed By: #### L 100.0100, L500.4050 ####[facility] [address] [place], [address] WBC (Bld) [#/Vol] 11.4 10*3/uL High 4.4-11.0 [facility] Comment on above: Performed By: #### L 100.0100, L500.4050 ####[facility] [address] [place], [address] Absolute Neut Normal 2.0-7.7 [facility] Comment on above: Result Comment: DUPL ICATED TESTS TO TX PLAN Performed By: #### L 100.0100, L501.5200 ####[facility] [address] [place], [address] HCT Normal 37-47 [facility] Comment on above: Result Comment: DUPL ICATED TESTS TO TX PLAN Performed By: #### L 100.0100, L501.5200 ####[facility] [address] [place], [address] HGB Normal 12.0-15.0 [facility] Comment on above: Result Comment: DUPL ICATED TESTS TO TX PLAN Performed By: #### L 100.0100, L501.5200 ####[facility] [address] [place], [address] MCH Normal 27.0-32.0 [facility] Comment on above: Result Comment: DUPL ICATED TESTS TO TX PLAN Performed By: #### L 100.0100, L501.5200 ####[facility] [address] [place], [address] MCHC Normal 32-36 [facility] Comment on above: Result Comment: DUPL ICATED TESTS TO TX PLAN Performed By: #### L 100.0100, L501.5200 ####[facility] [address] [place], [address] MCV Normal 81-99 [facility] Comment on above: Result Comment: DUPL ICATED TESTS TO TX PLAN Performed By: #### L 100.0100, L501.5200 ####[facility] [address] [place], [address] NEUT% Normal 47-70 [facility] Comment on above: Result Comment: DUPL ICATED TESTS TO TX PLAN Performed By: #### L 100.0100, L501.5200 ####[facility] [address] [place], [address] PLT Normal 150-450 [facility] Comment on above: Result Comment: DUPL ICATED TESTS TO TX PLAN Performed By: #### L 100.0100, L501.5200 ####[facility] [address] [place], [address] RBC Normal 4.2-5.4 [facility] Comment on above: Result Comment: DUPL ICATED TESTS TO TX PLAN Performed By: #### L 100.0100, L501.5200 ####[facility] [address] [place], [address] RDW CV Normal 11.6-14.6 [facility] Comment on above: Result Comment: DUPL ICATED TESTS TO TX PLAN Performed By: #### L 100.0100, L501.5200 ####[facility] [address] [place], [address] RDW SD Normal 35.1-43.9 [facility] Comment on above: Result Comment: DUPL ICATED TESTS TO TX PLAN Performed By: #### L 100.0100, L501.5200 ####[facility] [address] [place], [address] WBC Normal 4.4-11.0 [facility] Comment on above: Result Comment: DUPL ICATED TESTS TO TX PLAN Performed By: #### L 100.0100, L501.5200 ####[facility] [address] [place], [address] Comprehensive Metabolic Prof [facility] 06-14-2024 Albumin [Mass/Vol] 3.4 g/dL Normal 3.2-5.0 [facility] Comment on above: Performed By: #### L 100.0100, L500.4050 ####[facility] [address] [place], [address] Albumin/Globulin [Mass ratio] 0.9 {ratio} Normal 0.9-2.4 [facility] Comment on above: Performed By: #### L 100.0100, L500.4050 ####[facility] [address] [place], [address] ALK P 61 U/L Normal 45-117 [facility] Comment on above: Performed By: #### L 100.0100, L500.4050 ####[facility] [address] [place], [address] ALT [Catalytic activity/Vol] 19 U/L Normal 13-56 [facility] Comment on above: Performed By: #### L 100.0100, L500.4050 ####[facility] [address] [place], [address] AST [Catalytic activity/Vol] 15 U/L Normal 15-37 [facility] Comment on above: Performed By: #### L 100.0100, L500.4050 ####[facility] [address] [place], [address] Bilirubin [Mass/Vol] 0.40 mg/dL Normal 0.20-1.00 [facility] Comment on above: Result Comment: For patients on eltrombopag therapy, use of Dimension [place] TBIL is not recommended. Performed By: #### L 100.0100, L500.4050 ####[facility] [address] [place], [address] BUN/CRE 27.3 RATIO High 10-20 [facility] Comment on above: Performed By: #### L 100.0100, L500.4050 ####[facility] [address] [place], [address] CA,Total 9.6 mg/dL Normal 8.5-10.1 [facility] Comment on above: Performed By: #### L 100.0100, L500.4050 ####[facility] [address] [place], [address] Chloride [Moles/Vol] 108 mmol/L High 98-107 [facility] Comment on above: Performed By: #### L 100.0100, L500.4050 ####[facility] [address] [place], [address] CO2 [Moles/Vol] 25.0 mmol/L Normal 21.0-32.0 [facility] Comment on above: Performed By: #### L 100.0100, L500.4050 ####[facility] [address] [place], [address] Creatinine [Mass/Vol] 0.84 mg/dL Normal 0.55-1.02 [facility] Comment on above: Result Comment: The validity of the calculated GFR GFRAA in patients over70 years has not been determined. Clinical correlation isessential. Performed By: #### L 100.0100, L500.4050 ####[facility] [address] [place], [address] ECRCL 71.53 ml/min Normal [facility] Comment on above: Performed By: #### L 100.0100, L500.4050 ####[facility] [address] [place], [address] EST GFR - AA 86 mL/min Normal >60 [facility] Comment on above: Result Comment: Afri can Icelandic GFR Calc Performed By: #### L 100.0100, L500.4050 ####[facility] [address] [place], [address] GAP 7 Normal 5-15 [facility] Comment on above: Performed By: #### L 100.0100, L500.4050 ####[facility] [address] [place], [address] GFR/1.73 sq M.predicted among non-blacks MDRD (S/P/Bld) [Vol rate/Area] 71 mL/min/{1.73_m2} Normal >60 [facility] Comment on above: Result Comment: Non- GFR Calc Performed By: #### L 100.0100, L500.4050 ####[facility] [address] [place], [address] Globulin (S) [Mass/Vol] 3.8 g/dL Normal 2.2-4.2 [facility] Comment on above: Performed By: #### L 100.0100, L500.4050 ####[facility] [address] [place], [address] Glucose [Mass/Vol] 144 mg/dL High 74-106 [facility] Comment on above: Result Comment: Fast ing Glucose result greater than or equal to 126 mg/dLsuggests DIABETES MELLITUS per A.D.A. criteria. Performed By: #### L 100.0100, L500.4050 ####[facility] [address] [place], [address] Potassium [Moles/Vol] 3.8 mmol/L Normal 3.5-5.1 [facility] Comment on above: Performed By: #### L 100.0100, L500.4050 ####[facility] [address] [place], [address] Sodium [Moles/Vol] 140 mmol/L Normal 136-145 [facility] Comment on above: Performed By: #### L 100.0100, L500.4050 ####[facility] [address] [place], [address] T PROT 7.2 g/dL Normal 6.4-8.2 [facility] Comment on above: Performed By: #### L 100.0100, L500.4050 ####[facility] [address] [place], [address] Urea nitrogen [Mass/Vol] 23 mg/dL High 7-18 [facility] Comment on above: Performed By: #### L 100.0100, L500.4050 ####[facility] [address] [place], [address] Magnesiumon 06-14-2024 Magnesium [Mass/Vol] 1.8 mg/dL Normal 1.6-2.6 [facility] Comment on above: Performed By: #### L 100.0100, L501.5200 ####[facility] [address] [place], [address] Oncology Visit Reporton 06-02 Oncology Visit Report Normal [facility] Radiation Oncology Visiton 0 06-10-2024 Radiation Oncology Visit Normal [facility] Radiation Oncology Visit Normal [facility] Radiation Oncology Visiton 0 06-08-2024 Radiation Oncology Visit Normal [facility] Culture, Blood (WB)on 2024 CUB Blood cultures x2, f rom two different sites No growth in 5 days. Normal [facility] Comment on above: Performed By: #### L 500.4050, M200.1000, L300.4310, L503.6005, L100.0100, L300.3900 ####[facility] [address] [place], [address] CBC W/Diff, Automatedon Absolute Neut Normal 2.0-7.7 [facility] Comment on above: Result Comment: Canc elled via OM: Order cancelled - Patient discharged Performed By: #### L 100.0100, L500.3600 ####[facility] [address] [place], [address] HCT Normal 37-47 [facility] Comment on above: Result Comment: Canc elled via OM: Order cancelled - Patient discharged Performed By: #### L 100.0100, L500.3600 ####[facility] [address] [place], [address] HGB Normal 12.0-15.0 [facility] Comment on above: Result Comment: Canc elled via OM: Order cancelled - Patient discharged Performed By: #### L 100.0100, L500.3600 ####[facility] [address] [place], [address] MCH Normal 27.0-32.0 [facility] Comment on above: Result Comment: Canc elled via OM: Order cancelled - Patient discharged Performed By: #### L 100.0100, L500.3600 ####[facility] [address] [place], [address] MCHC Normal 32-36 [facility] Comment on above: Result Comment: Canc elled via OM: Order cancelled - Patient discharged Performed By: #### L 100.0100, L500.3600 ####[facility] [address] [place], [address] MCV Normal 81-99 [facility] Comment on above: Result Comment: Canc elled via OM: Order cancelled - Patient discharged Performed By: #### L 100.0100, L500.3600 ####[facility] [address] [place], [address] NEUT% Normal 47-70 [facility] Comment on above: Result Comment: Canc elled via OM: Order cancelled - Patient discharged Performed By: #### L 100.0100, L500.3600 ####[facility] [address] [place], [address] PLT Normal 150-450 [facility] Comment on above: Result Comment: Canc elled via OM: Order cancelled - Patient discharged Performed By: #### L 100.0100, L500.3600 ####[facility] [address] [place], [address] RBC Normal 4.2-5.4 [facility] Comment on above: Result Comment: Canc elled via OM: Order cancelled - Patient discharged Performed By: #### L 100.0100, L500.3600 ####[facility] [address] [place], [address] RDW CV Normal 11.6-14.6 [facility] Comment on above: Result Comment: Canc elled via OM: Order cancelled - Patient discharged Performed By: #### L 100.0100, L500.3600 ####[facility] [address] [place], [address] RDW SD Normal 35.1-43.9 [facility] Comment on above: Result Comment: Canc elled via OM: Order cancelled - Patient discharged Performed By: #### L 100.0100, L500.3600 ####[facility] [address] [place], [address] WBC Normal 4.4-11.0 [facility] Comment on above: Result Comment: Canc elled via OM: Order cancelled - Patient discharged Performed By: #### L 100.0100, L500.3600 ####[facility] [address] [place], [address] Radiation Oncology Visiton 0 06-03-2024 Radiation Oncology Visit Normal [facility] Renal Profileon 06-03-2024 ALB Normal 3.2-5.0 [facility] Comment on above: Result Comment: Canc elled via OM: Order cancelled - Patient discharged Performed By: #### L 100.0100, L500.3600 ####[facility] [address] [place], [address] BUN Normal 7-18 [facility] Comment on above: Result Comment: Canc elled via OM: Order cancelled - Patient discharged Performed By: #### L 100.0100, L500.3600 ####[facility] [address] [place], [address] BUN/CRE Normal 10-20 [facility] Comment on above: Result Comment: Canc elled via OM: Order cancelled - Patient discharged Performed By: #### L 100.0100, L500.3600 ####[facility] [address] [place], [address] CA,Total Normal 8.5-10.1 [facility] Comment on above: Result Comment: Canc elled via OM: Order cancelled - Patient discharged Performed By: #### L 100.0100, L500.3600 ####[facility] [address] [place], [address] CL Normal 98-107 [facility] Comment on above: Result Comment: Canc elled via OM: Order cancelled - Patient discharged Performed By: #### L 100.0100, L500.3600 ####[facility] [address] [place], [address] CO2 Normal 21.0-32.0 [facility] Comment on above: Result Comment: Canc elled via OM: Order cancelled - Patient discharged Performed By: #### L 100.0100, L500.3600 ####[facility] [address] [place], [address] CREAT,SERUM Normal 0.55-1.02 [facility] Comment on above: Result Comment: Canc elled via OM: Order cancelled - Patient discharged Performed By: #### L 100.0100, L500.3600 ####[facility] [address] [place], [address] EST GFR Normal >60 [facility] Comment on above: Result Comment: Canc elled via OM: Order cancelled - Patient discharged Performed By: #### L 100.0100, L500.3600 ####[facility] [address] [place], [address] EST GFR - AA Normal >60 [facility] Comment on above: Result Comment: Canc elled via OM: Order cancelled - Patient discharged Performed By: #### L 100.0100, L500.3600 ####[facility] [address] [place], [address] GLU Normal 74-106 [facility] Comment on above: Result Comment: Canc elled via OM: Order cancelled - Patient discharged Performed By: #### L 100.0100, L500.3600 ####[facility] [address] [place], [address] PHOS Normal 2.5-4.9 [facility] Comment on above: Result Comment: Canc elled via OM: Order cancelled - Patient discharged Performed By: #### L 100.0100, L500.3600 ####[facility] [address] [place], [address] Potassium Normal 3.5-5.1 [facility] Comment on above: Result Comment: Canc elled via OM: Order cancelled - Patient discharged Performed By: #### L 100.0100, L500.3600 ####[facility] [address] [place], [address] Renal Profile Normal 136-145 [facility] Comment on above: Result Comment: Canc elled via OM: Order cancelled - Patient discharged Performed By: #### L 100.0100, L500.3600 ####[facility] [address] [place], [address] CBC W/Diff, Automatedon 01-0 Absolute Neut Normal 2.0-7.7 [facility] Comment on above: Result Comment: Canc elled via OM: Order cancelled - Patient discharged Performed By: #### L 100.0100, L500.3600 ####[facility] [address] [place], [address] HCT Normal 37-47 [facility] Comment on above: Result Comment: Canc elled via OM: Order cancelled - Patient discharged Performed By: #### L 100.0100, L500.3600 ####[facility] [address] [place], [address] HGB Normal 12.0-15.0 [facility] Comment on above: Result Comment: Canc elled via OM: Order cancelled - Patient discharged Performed By: #### L 100.0100, L500.3600 ####[facility] [address] [place], [address] MCH Normal 27.0-32.0 [facility] Comment on above: Result Comment: Canc elled via OM: Order cancelled - Patient discharged Performed By: #### L 100.0100, L500.3600 ####[facility] [address] [place], [address] MCHC Normal 32-36 [facility] Comment on above: Result Comment: Canc elled via OM: Order cancelled - Patient discharged Performed By: #### L 100.0100, L500.3600 ####[facility] [address] [place], [address] MCV Normal 81-99 [facility] Comment on above: Result Comment: Canc elled via OM: Order cancelled - Patient discharged Performed By: #### L 100.0100, L500.3600 ####[facility] [address] [place], [address] NEUT% Normal 47-70 [facility] Comment on above: Result Comment: Canc elled via OM: Order cancelled - Patient discharged Performed By: #### L 100.0100, L500.3600 ####[facility] [address] [place], [address] PLT Normal 150-450 [facility] Comment on above: Result Comment: Canc elled via OM: Order cancelled - Patient discharged Performed By: #### L 100.0100, L500.3600 ####[facility] [address] [place], [address] RBC Normal 4.2-5.4 [facility] Comment on above: Result Comment: Canc elled via OM: Order cancelled - Patient discharged Performed By: #### L 100.0100, L500.3600 ####[facility] [address] [place], [address] RDW CV Normal 11.6-14.6 [facility] Comment on above: Result Comment: Canc elled via OM: Order cancelled - Patient discharged Performed By: #### L 100.0100, L500.3600 ####[facility] [address] [place], [address] RDW SD Normal 35.1-43.9 [facility] Comment on above: Result Comment: Canc elled via OM: Order cancelled - Patient discharged Performed By: #### L 100.0100, L500.3600 ####[facility] [address] [place], [address] WBC Normal 4.4-11.0 [facility] Comment on above: Result Comment: Canc elled via OM: Order cancelled - Patient discharged Performed By: #### L 100.0100, L500.3600 ####[facility] [address] [place], [address] Renal Profileon 06-02-2024 ALB Normal 3.2-5.0 [facility] Comment on above: Result Comment: Canc elled via OM: Order cancelled - Patient discharged Performed By: #### L 100.0100, L500.3600 ####[facility] [address] [place], [address] BUN Normal 7-18 [facility] Comment on above: Result Comment: Canc elled via OM: Order cancelled - Patient discharged Performed By: #### L 100.0100, L500.3600 ####[facility] [address] [place], [address] BUN/CRE Normal 10-20 [facility] Comment on above: Result Comment: Canc elled via OM: Order cancelled - Patient discharged Performed By: #### L 100.0100, L500.3600 ####[facility] [address] [place], [address] CA,Total Normal 8.5-10.1 [facility] Comment on above: Result Comment: Canc elled via OM: Order cancelled - Patient discharged Performed By: #### L 100.0100, L500.3600 ####[facility] [address] [place], [address] CL Normal 98-107 [facility] Comment on above: Result Comment: Canc elled via OM: Order cancelled - Patient discharged Performed By: #### L 100.0100, L500.3600 ####[facility] [address] [place], [address] CO2 Normal 21.0-32.0 [facility] Comment on above: Result Comment: Canc elled via OM: Order cancelled - Patient discharged Performed By: #### L 100.0100, L500.3600 ####[facility] [address] [place], [address] CREAT,SERUM Normal 0.55-1.02 [facility] Comment on above: Result Comment: Canc elled via OM: Order cancelled - Patient discharged Performed By: #### L 100.0100, L500.3600 ####[facility] [address] [place], [address] EST GFR Normal >60 [facility] Comment on above: Result Comment: Canc elled via OM: Order cancelled - Patient discharged Performed By: #### L 100.0100, L500.3600 ####[facility] [address] [place], [address] EST GFR - AA Normal >60 [facility] Comment on above: Result Comment: Canc elled via OM: Order cancelled - Patient discharged Performed By: #### L 100.0100, L500.3600 ####[facility] [address] [place], [address] GLU Normal 74-106 [facility] Comment on above: Result Comment: Canc elled via OM: Order cancelled - Patient discharged Performed By: #### L 100.0100, L500.3600 ####[facility] [address] [place], [address] PHOS Normal 2.5-4.9 [facility] Comment on above: Result Comment: Canc elled via OM: Order cancelled - Patient discharged Performed By: #### L 100.0100, L500.3600 ####[facility] [address] [place], [address] Potassium Normal 3.5-5.1 [facility] Comment on above: Result Comment: Canc elled via OM: Order cancelled - Patient discharged Performed By: #### L 100.0100, L500.3600 ####[facility] [address] [place], [address] Renal Profile Normal 136-145 [facility] Comment on above: Result Comment: Canc elled via OM: Order cancelled - Patient discharged Performed By: #### L 100.0100, L500.3600 ####[facility] [address] [place], [address] Absolute neutrophil countOrd ered By: Aj Barron on 06-01-2024 Absolute neutrophil count 0.7 X10^3/uL Low 2.0-7.7 [facility] Albumin [Mass/Vol]Ordered By : jA Barron on 06-01-2024 Serum or plasma albumin measurement (mass/volume) 2.5 g/dL Low 3.2-5.0 [facility] Atypical lymphocyte percenta geOrdered By: Aj Barron on 06-01-2024 Atypical lymphocyte percentage 1+ % [facility] Basophil percentageOrdered B y: Aj Barron on 06-01-2024 Basophil percentage 1.2 % High 0-1 [facility] Bedside Glucoseon 06-01-2024 FINGERSTICK GLU 133 mg/dL High 74-106 [facility] Comment on above: Result Comment: JUAN GEMENT OF PATIENT CARE PER NURSING PROTOCOL Performed By: #### L 501.080 ####[facility] [address] [place], [address] FINGERSTICK GLU 97 mg/dL Normal 74-106 [facility] Comment on above: Result Comment: JUAN GEMENT OF PATIENT CARE PER NURSING PROTOCOL Performed By: #### L 501.080 ####[facility] [address] [place], [address] Blood urea nitrogen (BUN)/cr eatinine ratioOrdered By: Aj Sextonflex on 06-01-2024 Blood urea nitrogen (BUN)/creatinine ratio 8.8 RATIO Low 10-20 [facility] CBC W/Diff, Automatedon - PATH REV Reviewed Normal [facility] Comment on above: Result Comment: Leuk openia and neutropenia.Normocytic anemia.Clinical correlation necessary.Tae Kruger M.D. 06/01/24 AMENDED REPORT 06/01/24 1400 PATH REV previously reported as: September Performed By: #### L 500.3600, L100.0100 ####[facility] [address] [place], [address] Calcium [Mass/Vol]Ordered By : Aj Barron on 06-01-2024 Serum or plasma calcium measurement (mass/volume) 8.1 mg/dL Low 8.5-10.1 [facility] Carbon dioxide measurementOr dered By: Aj Barron on 06-01-2024 Carbon dioxide measurement 25.0 mmol/L 21.0-32.0 [facility] Chloride measurementOrdered By: Aj Barron on 06-01-2024 Chloride measurement 106 mmol/L 98-107 [facility] Creatinine [Mass/Vol]Ordered By: Aj Barron on 06-01-2024 Serum or plasma creatinine measurement (mass/volume) 0.57 mg/dL 0.55-1.02 [facility] Discharge Instructionon 05-04 Discharge Instruction Normal [facility] Eosinophil percentageOrdered By: Aj Barron on 06-01-2024 Eosinophil percentage 1.7 % 0-5 [facility] Erythrocyte distribution wid th (RBC) [Entitic vol]Ordered By: Aj Barron on 06-01-2024 Erythrocyte distribution width standard deviation 41.8 fl 35.1-43.9 [facility] Erythrocyte distribution wid th (RBC) [Ratio]Ordered By: Aj Barron on 06-01-2024 Erythrocyte distribution width ratio 12.1 % 11.6-14.6 [facility] Estimated glomerular filtrat ion rate (GFR) AmericanOrdered By: Aj Barron on 06-01-2024 Estimated glomerular filtration rate (GFR) 136 mL/min >60 [facility] Estimation of creatinine jaswinder aranceOrdered By: Aj Barron on 06-01-2024 Estimation of creatinine clearance 75.61 ml/min [facility] Glomerular filtration rate ( GFR) estimationOrdered By: Aj Barron on 06-01-2024 Glomerular filtration rate (GFR) estimation 112 mL/min >60 [facility] Glucose measurementOrdered B y: Aj Barron on 06-01-2024 Glucose measurement 114 mg/dL High 74-106 [facility] Glucose measurement at bedsi deOrdered By: Aj Barron on 06-01-2024 Glucose measurement at bedside 133 mg/dL High 74-106 [facility] Hematocrit Auto (Bld) [Volum e fraction]Ordered By: Aj Barron on 06-01-2024 Automated blood hematocrit (percentage) 27.3 % Low 37-47 [facility] Hemoglobin measurementOrdere d By: Aj Barron on 06-01-2024 Hemoglobin measurement 9.1 g/dL Low 12.0-15.0 [facility] Immature granulocytes/100 WB C Auto (Bld)Ordered By: Aj Barron on 06-01-2024 Automated immature granulocyte percentage 1.700 % High 0.0-0.9 [facility] Lymphocytes Auto (Unsp spec) [#/Vol]Ordered By: Aj Barron on 06-01-2024 Absolute lymphocyte count 0.44 X10^3/uL Low 0.83-4.51 [facility] Lymphocytes/100 WBC Auto (Un sp spec)Ordered By: Aj Barron on 06-01-2024 Automated lymphocyte count as percentage of total leukocytes 25.4 % 19-41 [facility] MCV (RBC) [Entitic vol]Order ed By: Aj Barron on 06-01-2024 MCV (mean corpuscular volume) determination 94.8 fL 81-99 [facility] Manual differential comment [place] (Bld) [Interp]Ordered By: Aj Barron on 06-01-2024 Blood manual differential comment interpretation (narrative result) SCANNED [facility] Mean corpuscular hemoglobin (MCH) determinationOrdered By: Aj Barron on 06-01-2024 Mean corpuscular hemoglobin (MCH) determination 31.6 pg 27.0-32.0 [facility] Mean corpuscular hemoglobin concentration (MCHC) determinationOrdered By: Aj Barron on 06-01-2024 Mean corpuscular hemoglobin concentration (MCHC) determination 33.3 g/dL 32-36 [facility] Mean platelet volume determi nationOrdered By: Aj Barron on 06-01-2024 Mean platelet volume determination 9.8 fl 6.2-12.0 [facility] Monocyte percentageOrdered B y: Aj Barron on 06-01-2024 Monocyte percentage 28.9 % High 0-10 [facility] Neutrophil percentageOrdered By: Aj Barron on 06-01-2024 Neutrophil percentage 41.1 % Low 47-70 [facility] Nucleated red blood cell per centageOrdered By: Aj Barron on 06-01-2024 Nucleated red blood cell percentage 0 % 0-5 [facility] Pathologist review [place] (Unsp spec) [Interp]Ordered By: Aj Barron on 06-01-2024 Review by pathologist Reviewed [facility] Phosphorus measurementOrdere d By: Aj Barron on 06-01-2024 Phosphorus measurement 2.2 mg/dL Low 2.5-4.9 [facility] Platelet countOrdered By: Demario Barron on 06-01-2024 Platelet count 193 K/mm3 150-450 [facility] Potassium measurementOrdered By: Aj Barron on 06-01-2024 Potassium measurement 3.4 mmol/L Low 3.5-5.1 [facility] RBC Auto (Bld) [#/Vol]Ordere d By: Aj Barron on 06-01-2024 Automated blood erythrocyte count 2.88 M/mm3 Low 4.2-5.4 [facility] Renal Profileon 06-01-2024 Albumin [Mass/Vol] 2.5 g/dL Low 3.2-5.0 [facility] Comment on above: Performed By: #### L 500.3600, L100.0100 ####[facility] [address] [place], [address] BUN/CRE 8.8 RATIO Low 10-20 [facility] Comment on above: Performed By: #### L 500.3600, L100.0100 ####[facility] [address] [place], [address] CA,Total 8.1 mg/dL Low 8.5-10.1 [facility] Comment on above: Performed By: #### L 500.3600, L100.0100 ####[facility] [address] [place], [address] Chloride [Moles/Vol] 106 mmol/L Normal 98-107 [facility] Comment on above: Performed By: #### L 500.3600, L100.0100 ####[facility] [address] [place], [address] CO2 [Moles/Vol] 25.0 mmol/L Normal 21.0-32.0 [facility] Comment on above: Performed By: #### L 500.3600, L100.0100 ####[facility] [address] [place], [address] Creatinine [Mass/Vol] 0.57 mg/dL Normal 0.55-1.02 [facility] Comment on above: Result Comment: The validity of the calculated GFR GFRAA in patients over70 years has not been determined. Clinical correlation isessential. Performed By: #### L 500.3600, L100.0100 ####[facility] [address] [place], [address] ECRCL 75.61 ml/min Normal [facility] Comment on above: Performed By: #### L 500.3600, L100.0100 ####[facility] [address] [place], [address] EST GFR - AA 136 mL/min Normal >60 [facility] Comment on above: Result Comment: Afri can Icelandic GFR Calc Performed By: #### L 500.3600, L100.0100 ####[facility] [address] [place], [address] GFR/1.73 sq M.predicted among non-blacks MDRD (S/P/Bld) [Vol rate/Area] 112 mL/min/{1.73_m2} Normal >60 [facility] Comment on above: Result Comment: Non- GFR Calc Performed By: #### L 500.3600, L100.0100 ####[facility] [address] [place], [address] Glucose [Mass/Vol] 114 mg/dL High 74-106 [facility] Comment on above: Result Comment: Fast ing Glucose result from 100 to 125 mg/dLsuggests IMPAIRED HOMEOSTASIS per A.D.A. criteria. Performed By: #### L 500.3600, L100.0100 ####[facility] [address] [place], [address] Phosphate [Mass/Vol] 2.2 mg/dL Low 2.5-4.9 [facility] Comment on above: Performed By: #### L 500.3600, L100.0100 ####[facility] [address] [place], [address] Potassium [Moles/Vol] 3.4 mmol/L Low 3.5-5.1 [facility] Comment on above: Performed By: #### L 500.3600, L100.0100 ####[facility] [address] [place], [address] Sodium [Moles/Vol] 137 mmol/L Normal 136-145 [facility] Comment on above: Performed By: #### L 500.3600, L100.0100 ####[facility] [address] [place], [address] Urea nitrogen [Mass/Vol] 5 mg/dL Low -18 [facility] Comment on above: Performed By: #### L 500.3600, L100.0100 ####[facility] [address] [place], [address] Sodium levelOrdered By: Tomas Barron on 06-01-2024 Sodium level 137 mmol/L 136-145 [facility] Urea nitrogen [Mass/Vol]Orde red By: Aj Barron on 06-01-2024 Serum or plasma urea nitrogen measurement (mass/volume) 5 mg/dL Low -18 [facility] Urine Cultureon 06-01-2024 URC Normal [facility] Comment on above: Performed By: #### L 400.0001, M100.2200 ####[facility] [address] [place], [address] White blood cell (WBC) count Ordered By: Aj Barron on 06-01-2024 White blood cell (WBC) count 1.7 K/mm3 Low 4.4-11.0 [facility] Basic Metabolic Profile (BMP )on 05-31-2024 BUN/CRE 9.5 RATIO Low 10-20 [facility] Comment on above: Performed By: #### L 100.0100, L500.2500 ####[facility] [address] [place], [address] CA,Total 8.2 mg/dL Low 8.5-10.1 [facility] Comment on above: Performed By: #### L 100.0100, L500.2500 ####[facility] [address] [place], [address] Chloride [Moles/Vol] 108 mmol/L High 98-107 [facility] Comment on above: Performed By: #### L 100.0100, L500.2500 ####[facility] [address] [place], [address] CO2 [Moles/Vol] 25.0 mmol/L Normal 21.0-32.0 [facility] Comment on above: Performed By: #### L 100.0100, L500.2500 ####[facility] [address] [place], [address] Creatinine [Mass/Vol] 0.63 mg/dL Normal 0.55-1.02 [facility] Comment on above: Result Comment: The validity of the calculated GFR GFRAA in patients over70 years has not been determined. Clinical correlation isessential. Performed By: #### L 100.0100, L500.2500 ####[facility] [address] [place], [address] ECRCL 75.61 ml/min Normal [facility] Comment on above: Performed By: #### L 100.0100, L500.2500 ####[facility] [address] [place], [address] EST GFR - AA 120 mL/min Normal >60 [facility] Comment on above: Result Comment: Afri can Icelandic GFR Calc Performed By: #### L 100.0100, L500.2500 ####[facility] [address] [place], [address] GAP 3 Low 5-15 [facility] Comment on above: Performed By: #### L 100.0100, L500.2500 ####[facility] [address] [place], [address] GFR/1.73 sq M.predicted among non-blacks MDRD (S/P/Bld) [Vol rate/Area] 99 mL/min/{1.73_m2} Normal >60 [facility] Comment on above: Result Comment: Non- GFR Calc Performed By: #### L 100.0100, L500.2500 ####[facility] [address] [place], [address] Glucose [Mass/Vol] 129 mg/dL High 74-106 [facility] Comment on above: Result Comment: Fast ing Glucose result greater than or equal to 126 mg/dLsuggests DIABETES MELLITUS per A.D.A. criteria. Performed By: #### L 100.0100, L500.2500 ####[facility] [address] [place], [address] Potassium [Moles/Vol] 4.1 mmol/L Normal 3.5-5.1 [facility] Comment on above: Performed By: #### L 100.0100, L500.2500 ####[facility] [address] [place], [address] Sodium [Moles/Vol] 136 mmol/L Normal 136-145 [facility] Comment on above: Performed By: #### L 100.0100, L500.2500 ####[facility] [address] [place], [address] Urea nitrogen [Mass/Vol] 6 mg/dL Low 7-18 [facility] Comment on above: Performed By: #### L 100.0100, L500.2500 ####[facility] [address] [place], [address] Bedside Glucoseon 05-31-2024 FINGERSTICK GLU 117 mg/dL High 74-106 [facility] Comment on above: Result Comment: JUAN GEMENT OF PATIENT CARE PER NURSING PROTOCOL Performed By: #### L 501.080 ####[facility] [address] [place], [address] FINGERSTICK GLU 101 mg/dL Normal 74-106 [facility] Comment on above: Result Comment: JUAN GEMENT OF PATIENT CARE PER NURSING PROTOCOL Performed By: #### L 501.080 ####[facility] [address] [place], [address] FINGERSTICK GLU 105 mg/dL Normal 74-106 [facility] Comment on above: Result Comment: JUAN GEMENT OF PATIENT CARE PER NURSING PROTOCOL Performed By: #### L 501.080 ####[facility] [address] [place], [address] FINGERSTICK GLU 106 mg/dL Normal 74-106 [facility] Comment on above: Result Comment: JUAN GEMENT OF PATIENT CARE PER NURSING PROTOCOL Performed By: #### L 501.080 ####[facility] [address] [place], [address] CBC W/Diff, Automatedon 12- PATH REV Reviewed Normal [facility] Comment on above: Result Comment: Panc ytopenia.Leukopenia and neutropenia.Macrocytic anemia.MILD Thrombocytopenia.Clinical correlation necessary.Tae Kruger M.D. 05/31/24 AMENDED REPORT 05/31/24 1532 PATH REV previously reported as: September rob Performed By: #### L 500.4050, M200.1000, L300.4310, L503.6005, L100.0100, L300.3900 ####[facility] [address] [place], [address] Result Comment: Panc ytopenia.Leukopenia and neutropenia.Macrocytic anemia.MILD Thrombocytopenia.Clinical correlation necessary.Tae Kruger M.D. 05/31/24 AMENDED REPORT 05/31/24 1533 PATH REV previously reported as: September Performed By: #### L 100.0100, L500.2500 ####[facility] [address] [place], [address] Consultation - Infectious Dx on 05-31-2024 Consultation - Infectious Dx Normal [facility] Consultation - Intensiviston 05-31-2024 Consultation - Accounts Receivable Specialist Normal [facility] Consultation - Oncology IPon 05-31-2024 Consultation - Oncology IP Normal [facility] Ferritinon 05-31-2024 Ferritin [Mass/Vol] 206 ng/mL Normal [facility] Comment on above: Order Comment: Has P martha had X-rays with Contrast this admission? NN Performed By: #### L 503.6550, L503.0105, L506.0250, L503.6030 ####[facility] [address] [place], [address] Ferritin measurementOrdered By: Aj Barron on 05-31-2024 Ferritin measurement 206 ng/mL - [facility] Folates, (Folic Acid)on 05-04 FOLATES 18.50 ng/mL Normal 3.1-55.4 [facility] Comment on above: Order Comment: Has P martha had X-rays with Contrast this admission? NN Performed By: #### L 503.6550, L503.0105, L506.0250, L503.6030 ####[facility] [address] [place], [address] Folic acid measurementOrdere d By: Aj Barron on 05-31-2024 Folic acid measurement 18.50 ng/mL 3.1-55.[address] [facility] Iron (Unsp spec) [Mass/Mass] Ordered By: Aj Barron on 05-31-2024 Iron measurement (mass/mass) 16 ug/dL Low 50-170 [facility] Iron saturation [Mass fracti on]Ordered By: Aj Barron on 05-31-2024 Serum or plasma iron saturation measurement (mass fraction) 9.1 % Low 15.0-55.0 [facility] Iron+Iron Binding Capacityon 05-31-2024 Iron [Mass/Vol] 16 ug/dL Low 50-170 [facility] Comment on above: Order Comment: Has Esequiel thomas had X-rays with Contrast this admission? NN Performed By: #### L 503.6550, L503.0105, L506.0250, L503.6030 ####[facility] [address] [place], [address] IRON SATURATION 9.1 Low 15.0-55.0 [facility] Comment on above: Order Comment: Has Esequiel thomas had X-rays with Contrast this admission? NN Performed By: #### L 503.6550, L503.0105, L506.0250, L503.6030 ####[facility] [address] [place], [address] TIBC 176 ug/dL Low 250-450 [facility] Comment on above: Order Comment: Has Esequiel thomas had X-rays with Contrast this admission? NN Performed By: #### L 503.6550, L503.0105, L506.0250, L503.6030 ####[facility] [address] [place], [address] Serum anion gap measurementO rdered By: Aj Barron on 05-31-2024 Serum anion gap measurement 3 Low 5-15 [facility] TIBCOrdered By: Aj jeter on 05-31-2024 TIBC 176 ug/dL Low 250-450 [facility] Vitamin B12on 05-31-2024 Cobalamin (Vitamin B12) [Mass/Vol] 300 pg/mL Normal 211-911 [facility] Comment on above: Performed By: #### L 503.6550, L503.0105, L506.0250, L503.6030 ####[facility] [address] [place], [place], [id number] Vitamin B12 measurementOrder ed By: Aj Barron on 05-31-2024 Vitamin B12 measurement 300 pg/mL 211-911 [facility] 12 Lead EKGon 05-30-2024 12 Lead EKG Normal [facility] ALP [Catalytic activity/Vol] Ordered By: Jovani Puente on 05-30-2024 Serum or plasma alkaline phosphatase measurement 53 U/L 45-117 [facility] ALT [Catalytic activity/Vol] Ordered By: Jovani Puente on 05-30-2024 Serum or plasma alanine aminotransferase (ALT) measurement 18 U/L 13-56 [facility] Abdomen/Pelvis W IV Cont ONL Yon 05-30-2024 Abdomen/Pelvis W IV Cont ONLY Normal [facility] Albumin to globulin ratioOrd ered By: Jovani Puente on 05-30-2024 Albumin to globulin ratio 0.7 RATIO Low 0.9-2.4 [facility] Bacteria LM.HPF (Urine sed) [#/Area]Ordered By: Jovani Puente on 05-30-2024 Urine sediment bacteria count by microscopy (number/high power field) 2+ /hpf None Seen [facility] Bedside Glucoseon 05-30-2024 FINGERSTICK GLU 117 mg/dL High 74-106 [facility] Comment on above: Result Comment: JUAN VILLASENOR OF PATIENT CARE PER NURSING PROTOCOL Performed By: #### L 501.080 ####[facility] [address] [place], [place], [id number] Bilirubin, totalOrdered By: Jovani Puente on 05-30-2024 Bilirubin, total 0.50 mg/dL 0.20-1.00 [facility] Blood cultureOrdered By: Ashley uPente on 05-30-2024 Blood culture No growth in [address] [facility] Blood culture No growth in [address] [facility] Chest 1 View (Portable)on Chest 1 View (Portable) Normal [facility] Clarity (U)Ordered By: Sonia Puente on 05-30-2024 Urine clarity Sl. Cloudy Clear [facility] Color (U)Ordered By: Jovani Puente on 05-30-2024 Urine color determination Yellow Yellow [facility] Comprehensive Metabolic Prof ilon 05-30-2024 Albumin [Mass/Vol] 3.0 g/dL Low 3.2-5.0 [facility] Comment on above: Performed By: #### L 500.4050, M200.1000, L300.4310, L503.6005, L100.0100, L300.3900 ####[facility] [address] [place], [address] Albumin/Globulin [Mass ratio] 0.7 {ratio} Low 0.9-2.4 [facility] Comment on above: Performed By: #### L 500.4050, M200.1000, L300.4310, L503.6005, L100.0100, L300.3900 ####[facility] [address] [place], [address] ALK P 53 U/L Normal 45-117 [facility] Comment on above: Performed By: #### L 500.4050, M200.1000, L300.4310, L503.6005, L100.0100, L300.3900 ####[facility] [address] [place], [address] ALT [Catalytic activity/Vol] 18 U/L Normal 13-56 [facility] Comment on above: Performed By: #### L 500.4050, M200.1000, L300.4310, L503.6005, L100.0100, L300.3900 ####[facility] [address] [place], [address] AST [Catalytic activity/Vol] 7 U/L Low 15-37 [facility] Comment on above: Performed By: #### L 500.4050, M200.1000, L300.4310, L503.6005, L100.0100, L300.3900 ####[facility] [address] [place], [address] Bilirubin [Mass/Vol] 0.50 mg/dL Normal 0.20-1.00 [facility] Comment on above: Result Comment: For patients on eltrombopag therapy, use of Dimension [place] TBIL is not recommended. Performed By: #### L 500.4050, M200.1000, L300.4310, L503.6005, L100.0100, L300.3900 ####[facility] [address] [place], [address] BUN/CRE 10.4 RATIO Normal 10-20 [facility] Comment on above: Performed By: #### L 500.4050, M200.1000, L300.4310, L503.6005, L100.0100, L300.3900 ####[facility] [address] [place], [address] CA,Total 8.8 mg/dL Normal 8.5-10.1 [facility] Comment on above: Performed By: #### L 500.4050, M200.1000, L300.4310, L503.6005, L100.0100, L300.3900 ####[facility] [address] [place], [address] Chloride [Moles/Vol] 104 mmol/L Normal 98-107 [facility] Comment on above: Performed By: #### L 500.4050, M200.1000, L300.4310, L503.6005, L100.0100, L300.3900 ####[facility] [address] [place], [address] CO2 [Moles/Vol] 24.0 mmol/L Normal 21.0-32.0 [facility] Comment on above: Performed By: #### L 500.4050, M200.1000, L300.4310, L503.6005, L100.0100, L300.3900 ####[facility] [address] [place], [address] Creatinine [Mass/Vol] 0.68 mg/dL Normal 0.55-1.02 [facility] Comment on above: Result Comment: The validity of the calculated GFR GFRAA in patients over70 years has not been determined. Clinical correlation isessential. Performed By: #### L 500.4050, M200.1000, L300.4310, L503.6005, L100.0100, L300.3900 ####[facility] [address] [place], [address] ECRCL 76.84 ml/min Normal [facility] Comment on above: Performed By: #### L 500.4050, M200.1000, L300.4310, L503.6005, L100.0100, L300.3900 ####[facility] [address] [place], [address] EST GFR - AA 111 mL/min Normal >60 [facility] Comment on above: Result Comment: Afri can Icelandic GFR Calc Performed By: #### L 500.4050, M200.1000, L300.4310, L503.6005, L100.0100, L300.3900 ####[facility] [address] [place], [address] GAP 8 Normal 5-15 [facility] Comment on above: Performed By: #### L 500.4050, M200.1000, L300.4310, L503.6005, L100.0100, L300.3900 ####[facility] [address] [place], [address] GFR/1.73 sq M.predicted among non-blacks MDRD (S/P/Bld) [Vol rate/Area] 92 mL/min/{1.73_m2} Normal >60 [facility] Comment on above: Result Comment: Non- GFR Calc Performed By: #### L 500.4050, M200.1000, L300.4310, L503.6005, L100.0100, L300.3900 ####[facility] [address] [place], [address] Globulin (S) [Mass/Vol] 4.1 g/dL Normal 2.2-4.2 [facility] Comment on above: Performed By: #### L 500.4050, M200.1000, L300.4310, L503.6005, L100.0100, L300.3900 ####[facility] [address] [place], [address] Glucose [Mass/Vol] 153 mg/dL High 74-106 [facility] Comment on above: Result Comment: Fast ing Glucose result greater than or equal to 126 mg/dLsuggests DIABETES MELLITUS per A.D.A. criteria. Performed By: #### L 500.4050, M200.1000, L300.4310, L503.6005, L100.0100, L300.3900 ####[facility] [address] [place], [address] Potassium [Moles/Vol] 3.0 mmol/L Low 3.5-5.1 [facility] Comment on above: Performed By: #### L 500.4050, M200.1000, L300.4310, L503.6005, L100.0100, L300.3900 ####[facility] [address] [place], [address] Sodium [Moles/Vol] 136 mmol/L Normal 136-145 [facility] Comment on above: Performed By: #### L 500.4050, M200.1000, L300.4310, L503.6005, L100.0100, L300.3900 ####[facility] [address] [place], [place], [id number] T PROT 7.1 g/dL Normal 6.4-8.2 [facility] Comment on above: Performed By: #### L 500.4050, M200.1000, L300.4310, L503.6005, L100.0100, L300.3900 ####[facility] [address] [place], [address] Urea nitrogen [Mass/Vol] 7 mg/dL Normal 7-18 [facility] Comment on above: Performed By: #### L 500.4050, M200.1000, L300.4310, L503.6005, L100.0100, L300.3900 ####[facility] [address] [place], [address] Emergency Department Summary on 05-30-2024 Emergency Department Summary Normal [facility] Epithelial cells.squamous LM Ql (Urine sed)Ordered By: Jovani Puente on 05-30-2024 Squamous epithelial cells detection in urine sediment by light microscopy 5-10 SEEN /hpf 5-10 [facility] H AND P Exam - Hospitaliston 05-30-2024 H&P Exam - Hospitalist Normal [facility] HbA1c (Bld) [Mass fraction]O rdered By: Aj Barron on 05-30-2024 Hemoglobin A1c percentage 6.2 % High 3.8-5.6 [facility] Hemoglobin A1con 05-30-2024 HbA1c (Bld) [Mass fraction] 6.2 % High 3.8-5.6 [facility] Comment on above: Result Comment: Norm al < 5.7 % Prediabetic 5.7 - 6.4 % Diabetic >or= 6.5 % Please note range changes. Performed By: #### L 501.9985 ####[facility] [address] [place], [place], [id number] International normalized rat io (INR) calculationOrdered By: Jovani Puente on 05-30-2024 International normalized ratio (INR) calculation 1.2 [facility] Ketones Test strip Ql (U)Ord ered By: Jovani Puente on 05-30-2024 Urine ketones detection by test strip 15 mg/dl High Negative [facility] Lactic Acidon 05-30-2024 Lactate [Moles/Vol] 0.8 mmol/L Normal 0.4-1.9 [facility] Comment on above: Order Comment: Y Performed By: #### L 500.4050, M200.1000, L300.4310, L503.6005, L100.0100, L300.3900 ####[facility] [address] [facility] [id number] Lactic acid measurementOrder ed By: Jovani Puente on 05-30-2024 Lactic acid measurement 0.8 mmol/L 0.4-2.0 [facility] M100.678on 05-30-2024 M100.678 Pending SARS-CoV-2 (COVID 19) Negative INFLUENZA A Negative INFLUENZA B Negative RSV PCR Negative Normal [facility] Comment on above: Performed By: #### M 100.678 ####[facility] [address] [place], [place], [id number] Magnesiumon 05-30-2024 Magnesium [Mass/Vol] 1.6 mg/dL Normal 1.6-2.6 [facility] Comment on above: Performed By: #### L 501.2300, L501.5200 ####[facility] [address] [place], [place], [id number] Magnesium measurementOrdered By: Aj Barron on 05-30-2024 Magnesium measurement 1.6 mg/dL 1.6-2.6 [facility] Mucus LM Ql (Urine sed)Order ed By: Jovani Puente on 05-30-2024 Mucus detection in urine sediment by light microscopy 0 SEEN /hpf [facility] Nitrite Test strip Ql (U)Ord ered By: Jovani Puente on 05-30-2024 Urine nitrite test by dipstick Positive High Negative [facility] No Panel InformationOrdered By: Jovani Puente on 05-30-2024 7 U/L Low 15-37 [facility] Ovalocyte detectionOrdered B y: Jovani Puente on 05-30-2024 Ovalocyte detection 1+ [facility] Partial Thromboplast Timeon 05-30-2024 aPTT Coag (Bld) [Time] 32.9 s Normal 24.1-36.2 [facility] Comment on above: Performed By: #### L 500.4050, M200.1000, L300.4310, L503.6005, L100.0100, L300.3900 ####[facility] [address] [place], [address] Phosphoruson 05-30-2024 Phosphate [Mass/Vol] 1.6 mg/dL Low 2.5-4.9 [facility] Comment on above: Performed By: #### L 501.2300, L501.5200 ####[facility] [address] [place], [address] Platelets LM Ql (Bld)Ordered By: Jovani Puente on 05-30-2024 Platelet estimate SLT DEC ADEQ [facility] Protein Test strip Ql (U)Ord ered By: Jovani Puente on 05-30-2024 Urine protein assay by test strip, semi-quantitative 30 mg/dl High Negative [facility] Prothrombin Time w/INRon INR Coag (PPP) [Relative time] 1.2 {INR} Normal [facility] Comment on above: Performed By: #### L 500.4050, M200.1000, L300.4310, L503.6005, L100.0100, L300.3900 ####[facility] [address] [place], [address] PT Coag (PPP) [Time] 15.0 s High 11.7-14.9 [facility] Comment on above: Performed By: #### L 500.4050, M200.1000, L300.4310, L503.6005, L100.0100, L300.3900 ####[facility] [address] [place], [address] Prothrombin timeOrdered By: Jovani Puente on 05-30-2024 Prothrombin time 15.0 SECONDS High 11.7-14.9 [facility] Serum globulin measurementOr dered By: Jovani Puente on 05-30-2024 Serum globulin measurement 4.1 g/dL 2.2-4.2 [facility] Specific gravity (U) [Rel de nsity]Ordered By: Jovani Puente on 05-30-2024 Urine specific gravity measurement 1.010 1.002-1.030 [facility] Total proteinOrdered By: Ashley Puente on 05-30-2024 Total protein 7.1 g/dL 6.4-8.2 [facility] Urinalysis, Completeon 05-30 BACTERIA 2+ /hpf Normal None Seen [facility] Comment on above: Order Comment: JIMENA CTOR TO SPECIFY Performed By: #### L 400.0001, M100.0 ####[facility] [address] [place], [address] WBC 0-5 SEEN Normal 0-5 [facility] Comment on above: Order Comment: JIMENA CTOR TO SPECIFY Performed By: #### L 400.0001, M100.0 ####[facility] [address] [place], [address] EPI,SQUAMOUS 5-10 SEEN Normal 5-10 [facility] Comment on above: Order Comment: JIMENA CTOR TO SPECIFY Performed By: #### L 400.0001, M100.2200 ####[facility] [address] [place], [address] RBC 0-5 SEEN Normal 0-5 [facility] Comment on above: Order Comment: JIMENA CTOR TO SPECIFY Performed By: #### L 400.0001, M100.2200 ####[facility] [address] [place], [address] Mucus Ql (Urine sed) 0 SEEN Normal [facility] Comment on above: Order Comment: JIMENA CTOR TO SPECIFY Performed By: #### L 400.0001, M100.2200 ####[facility] [address] [place], [address] Urine blood detectionOrdered By: Jovani Puente on 05-30-2024 Urine blood detection 10 /ul High Negative [facility] Urine cultureOrdered By: Ashley Puente on 05-30-2024 Urine culture Escherichia coli Abnormal [facility] Urine glucose detectionOrder ed By: Jovani Puente on 05-30-2024 Urine glucose detection Normal mg/dl Normal [facility] Urine total bilirubin detect ion by test stripOrdered By: Jovani Puente on 05-30-2024 Urine total bilirubin detection by test strip Negative Negative [facility] White blood cell countOrdere d By: Jovani Puente on 05-30-2024 White blood cell count 0-5 SEEN /hpf 0-5 [facility] aPTT Coag (PPP) [Time]Ordere d By: Jovani Puente on 05-30-2024 Activated partial thromboplastin time (aPTT) in platelet poor plasma by coagulation a 32.9 Seconds 24.1-36.2 [facility] pH (U)Ordered By: Burt on 05-30-2024 Urine pH 6.5 5.0 - 8.0 [facility] Radiation Oncology Visiton 1 07-25-2023 Radiation Oncology Visit Normal [facility] Radiation Oncology Visiton 1 07-22-2023 Radiation Oncology Visit Normal [facility] Radiation Oncology Visiton 1 07-19-2023 Radiation Oncology Visit Normal [facility] CBC W/Diff, Automatedon 05-02 Absolute Lymph 1.52 X10 3/uL Normal 0.83-4.51 [facility] Comment on above: Performed By: #### L 501.2300, L100.0100, L501.5200, L500.4050 ####[facility] [address] [place], [address] Absolute Neut 4.6 X10 3/uL Normal 2.0-7.7 [facility] Comment on above: Performed By: #### L 501.2300, L100.0100, L501.5200, L500.4050 ####[facility] [address] [place], [address] Basophils/100 WBC (Bld) 0.6 % Normal 0-1 [facility] Comment on above: Performed By: #### L 501.2300, L100.0100, L501.5200, L500.4050 ####[facility] [address] [place], [address] Eosinophils/100 WBC (Bld) 2.6 % Normal 0-5 [facility] Comment on above: Performed By: #### L 501.2300, L100.0100, L501.5200, L500.4050 ####[facility] [address] [place], [address] Erythrocyte distribution width (RBC) [Ratio] 12.3 % Normal 11.6-14.6 [facility] Comment on above: Performed By: #### L 501.2300, L100.0100, L501.5200, L500.4050 ####[facility] [address] [place], [address] Hematocrit (Bld) [Volume fraction] 37.2 % Normal 37-47 [facility] Comment on above: Performed By: #### L 501.2300, L100.0100, L501.5200, L500.4050 ####[facility] [address] [place], [address] Hemoglobin (Bld) [Mass/Vol] 11.9 g/dL Low 12.0-15.0 [facility] Comment on above: Performed By: #### L 501.2300, L100.0100, L501.5200, L500.4050 ####[facility] [address] [place], [address] IG% 0.400 Normal 0.0-0.9 [facility] Comment on above: Result Comment: IG% - Immature Granulocytes (promyelocytes, myelocytes andmetamyelocytes) > 1% indicates that a LEFT SHIFT is Present. Performed By: #### L 501.2300, L100.0100, L501.5200, L500.4050 ####[facility] [address] [place], [address] Lymphocytes/100 WBC (Bld) 22.1 % Normal 19-41 [facility] Comment on above: Performed By: #### L 501.2300, L100.0100, L501.5200, L500.4050 ####[facility] [address] [place], [address] MCH (RBC) [Entitic mass] 31.4 pg Normal 27.0-32.0 [facility] Comment on above: Performed By: #### L 501.2300, L100.0100, L501.5200, L500.4050 ####[facility] [address] [place], [address] MCHC (RBC) [Mass/Vol] 32.0 g/dL Normal 32-36 [facility] Comment on above: Performed By: #### L 501.2300, L100.0100, L501.5200, L500.4050 ####[facility] [address] [place], [address] MCV (RBC) [Entitic vol] 98.2 fL Normal 81-99 [facility] Comment on above: Performed By: #### L 501.2300, L100.0100, L501.5200, L500.4050 ####[facility] [address] [place], [address] Monocytes/100 WBC (Bld) 8.0 % Normal 0-10 [facility] Comment on above: Performed By: #### L 501.2300, L100.0100, L501.5200, L500.4050 ####[facility] [address] [place], [address] Neutrophils/100 WBC (Bld) 66.3 % Normal 47-70 [facility] Comment on above: Performed By: #### L 501.2300, L100.0100, L501.5200, L500.4050 ####[facility] [address] [place], [address] Nucleated RBC (Bld) [#/Vol] 0 10*3/uL Normal 0-5 [facility] Comment on above: Performed By: #### L 501.2300, L100.0100, L501.5200, L500.4050 ####[facility] [address] [place], [address] Platelet mean volume (Bld) [Entitic vol] 10.4 fL Normal 6.2-12.0 [facility] Comment on above: Performed By: #### L 501.2300, L100.0100, L501.5200, L500.4050 ####[facility] [address] [place], [address] Platelets (Bld) [#/Vol] 271 10*3/uL Normal 150-450 [facility] Comment on above: Performed By: #### L 501.2300, L100.0100, L501.5200, L500.4050 ####[facility] [address] [place], [address] RBC (Bld) [#/Vol] 3.79 10*6/uL Low 4.2-5.4 [facility] Comment on above: Performed By: #### L 501.2300, L100.0100, L501.5200, L500.4050 ####[facility] [address] [place], [address] RDW SD 44.5 fl High 35.1-43.9 [facility] Comment on above: Performed By: #### L 501.2300, L100.0100, L501.5200, L500.4050 ####[facility] [address] [place], [address] WBC (Bld) [#/Vol] 6.9 10*3/uL Normal 4.4-11.0 [facility] Comment on above: Performed By: #### L 501.2300, L100.0100, L501.5200, L500.4050 ####[facility] [address] [place], [address] Comprehensive Metabolic [facility] 05-17-2024 Albumin [Mass/Vol] 3.5 g/dL Normal 3.2-5.0 [facility] Comment on above: Performed By: #### L 501.2300, L100.0100, L501.5200, L500.4050 ####[facility] [address] [place], [address] Albumin/Globulin [Mass ratio] 1.0 {ratio} Normal 0.9-2.4 [facility] Comment on above: Performed By: #### L 501.2300, L100.0100, L501.5200, L500.4050 ####[facility] [address] [place], [address] ALK P 63 U/L Normal 45-117 [facility] Comment on above: Performed By: #### L 501.2300, L100.0100, L501.5200, L500.4050 ####[facility] [address] [place], [address] ALT [Catalytic activity/Vol] 21 U/L Normal 13-56 [facility] Comment on above: Performed By: #### L 501.2300, L100.0100, L501.5200, L500.4050 ####[facility] [address] [place], [address] AST [Catalytic activity/Vol] 15 U/L Normal 15-37 [facility] Comment on above: Performed By: #### L 501.2300, L100.0100, L501.5200, L500.4050 ####[facility] [address] [place], [address] Bilirubin [Mass/Vol] 0.40 mg/dL Normal 0.20-1.00 [facility] Comment on above: Result Comment: For patients on eltrombopag therapy, use of Dimension [place] TBIL is not recommended. Performed By: #### L 501.2300, L100.0100, L501.5200, L500.4050 ####[facility] [address] [place], [address] BUN/CRE 21.4 RATIO High 10-20 [facility] Comment on above: Performed By: #### L 501.2300, L100.0100, L501.5200, L500.4050 ####[facility] [address] [place], [address] CA,Total 9.1 mg/dL Normal 8.5-10.1 [facility] Comment on above: Performed By: #### L 501.2300, L100.0100, L501.5200, L500.4050 ####[facility] [address] [place], [address] Chloride [Moles/Vol] 108 mmol/L High 98-107 [facility] Comment on above: Performed By: #### L 501.2300, L100.0100, L501.5200, L500.4050 ####[facility] [address] [place], [address] CO2 [Moles/Vol] 26.0 mmol/L Normal 21.0-32.0 [facility] Comment on above: Performed By: #### L 501.2300, L100.0100, L501.5200, L500.4050 ####[facility] [address] [place], [address] Creatinine [Mass/Vol] 0.80 mg/dL Normal 0.55-1.02 [facility] Comment on above: Result Comment: The validity of the calculated GFR GFRAA in patients over70 years has not been determined. Clinical correlation isessential. Performed By: #### L 501.2300, L100.0100, L501.5200, L500.4050 ####[facility] [address] [place], [address] EST GFR - AA 92 mL/min Normal >60 [facility] Comment on above: Result Comment: Afri can Icelandic GFR Calc Performed By: #### L 501.2300, L100.0100, L501.5200, L500.4050 ####[facility] [address] [place], [address] GAP 5 Normal 5-15 [facility] Comment on above: Performed By: #### L 501.2300, L100.0100, L501.5200, L500.4050 ####[facility] [address] [place], [address] GFR/1.73 sq M.predicted among non-blacks MDRD (S/P/Bld) [Vol rate/Area] 76 mL/min/{1.73_m2} Normal >60 [facility] Comment on above: Result Comment: Non- GFR Calc Performed By: #### L 501.2300, L100.0100, L501.5200, L500.4050 ####[facility] [address] [place], [address] Globulin (S) [Mass/Vol] 3.4 g/dL Normal 2.2-4.2 [facility] Comment on above: Performed By: #### L 501.2300, L100.0100, L501.5200, L500.4050 ####[facility] [address] [place], [address] Glucose [Mass/Vol] 122 mg/dL High 74-106 [facility] Comment on above: Result Comment: Fast ing Glucose result from 100 to 125 mg/dLsuggests IMPAIRED HOMEOSTASIS per A.D.A. criteria. Performed By: #### L 501.2300, L100.0100, L501.5200, L500.4050 ####[facility] [address] [place], [address] Potassium [Moles/Vol] 4.3 mmol/L Normal 3.5-5.1 [facility] Comment on above: Performed By: #### L 501.2300, L100.0100, L501.5200, L500.4050 ####[facility] [address] [place], [address] Sodium [Moles/Vol] 140 mmol/L Normal 136-145 [facility] Comment on above: Performed By: #### L 501.2300, L100.0100, L501.5200, L500.4050 ####[facility] [address] [place], [address] T PROT 6.9 g/dL Normal 6.4-8.2 [facility] Comment on above: Performed By: #### L 501.2300, L100.0100, L501.5200, L500.4050 ####[facility] [address] [place], [address] Urea nitrogen [Mass/Vol] 17 mg/dL Normal 7-18 [facility] Comment on above: Performed By: #### L 501.2300, L100.0100, L501.5200, L500.4050 ####[facility] [address] [place], [address] Magnesiumon 05-17-2024 Magnesium [Mass/Vol] 1.9 mg/dL Normal 1.6-2.6 [facility] Comment on above: Performed By: #### L 501.2300, L100.0100, L501.5200, L500.4050 ####[facility] [address] [place], [address] Oncology Visit Reporton 05-02 Oncology Visit Report Normal [facility] Phosphoruson 05-17-2024 Phosphate [Mass/Vol] 2.9 mg/dL Normal 2.5-4.9 [facility] Comment on above: Performed By: #### L 501.2300, L100.0100, L501.5200, L500.4050 ####[facility] [address] [place], [address] Bedside Glucoseon 05-13-2024 FINGERSTICK GLU 89 mg/dL Normal 74-106 [facility] Comment on above: Result Comment: JUAN VILLASENOR OF PATIENT CARE PER NURSING PROTOCOL Performed By: #### L 501.080 ####[facility] [address] [place], [address] CXR for Line Placementon CXR for Line Placement Normal [facility] Discharge Instructionon 05-02 Discharge Instruction Normal [facility] Glucose measurement at bedsi deOrdered By: Nicola Prabhakar on 05-13-2024 Glucose measurement at bedside 89 mg/dL 74-106 [facility] MR/POSTOP.ANEon 05-13-2024 MR/POSTOP.ANE Normal [facility] MR/AISLNRLP9ks 05-13-2024 MR/POSTOPAN2 Normal [facility] Operative Reporton Operative Report Normal [facility] Radiation Oncology Visiton 1 07-12-2023 Radiation Oncology Visit Normal [facility] Brain W/WO Contraston 2023 Brain W/WO Contrast Normal [facility] Surgery Visit Reporton 05-07 Surgery Visit Report Normal [facility] CBC W/Diff, Automatedon 12-0 Absolute Lymph 2.18 X10 3/uL Normal 0.83-4.51 [facility] Comment on above: Performed By: #### L 500.4050, L100.0100 ####[facility] [address] [place], [address] Absolute Neut 4.9 X10 3/uL Normal 2.0-7.7 [facility] Comment on above: Performed By: #### L 500.4050, L100.0100 ####[facility] [address] [place], [address] Basophils/100 WBC (Bld) 0.6 % Normal 0-1 [facility] Comment on above: Performed By: #### L 500.4050, L100.0100 ####[facility] [address] [place], [address] Eosinophils/100 WBC (Bld) 2.9 % Normal 0-5 [facility] Comment on above: Performed By: #### L 500.4050, L100.0100 ####[facility] [address] [place], [address] Erythrocyte distribution width (RBC) [Ratio] 12.6 % Normal 11.6-14.6 [facility] Comment on above: Performed By: #### L 500.4050, L100.0100 ####[facility] [address] [place], [address] Hematocrit (Bld) [Volume fraction] 37.6 % Normal 37-47 [facility] Comment on above: Performed By: #### L 500.4050, L100.0100 ####[facility] [address] [place], [address] Hemoglobin (Bld) [Mass/Vol] 12.2 g/dL Normal 12.0-15.0 [facility] Comment on above: Performed By: #### L 500.4050, L100.0100 ####[facility] [address] [place], [address] IG% 0.400 Normal 0.0-0.9 [facility] Comment on above: Result Comment: IG% - Immature Granulocytes (promyelocytes, myelocytes andmetamyelocytes) > 1% indicates that a LEFT SHIFT is Present. Performed By: #### L 500.4050, L100.0100 ####[facility] [address] [place], [address] Lymphocytes/100 WBC (Bld) 26.8 % Normal 19-41 [facility] Comment on above: Performed By: #### L 500.4050, L100.0100 ####[facility] [address] [place], [address] MCH (RBC) [Entitic mass] 31.3 pg Normal 27.0-32.0 [facility] Comment on above: Performed By: #### L 500.4050, L100.0100 ####[facility] [address] [place], [address] MCHC (RBC) [Mass/Vol] 32.4 g/dL Normal 32-36 [facility] Comment on above: Performed By: #### L 500.4050, L100.0100 ####[facility] [address] [place], [address] MCV (RBC) [Entitic vol] 96.4 fL Normal 81-99 [facility] Comment on above: Performed By: #### L 500.4050, L100.0100 ####[facility] [address] [place], [address] Monocytes/100 WBC (Bld) 9.3 % Normal 0-10 [facility] Comment on above: Performed By: #### L 500.4050, L100.0100 ####[facility] [address] [place], [address] Neutrophils/100 WBC (Bld) 60.0 % Normal 47-70 [facility] Comment on above: Performed By: #### L 500.4050, L100.0100 ####[facility] [address] [place], [address] Nucleated RBC (Bld) [#/Vol] 0 10*3/uL Normal 0-5 [facility] Comment on above: Performed By: #### L 500.4050, L100.0100 ####[facility] [address] [place], [address] Platelet mean volume (Bld) [Entitic vol] 10.3 fL Normal 6.2-12.0 [facility] Comment on above: Performed By: #### L 500.4050, L100.0100 ####[facility] [address] [place], [address] Platelets (Bld) [#/Vol] 306 10*3/uL Normal 150-450 [facility] Comment on above: Performed By: #### L 500.4050, L100.0100 ####[facility] [address] [place], [address] RBC (Bld) [#/Vol] 3.90 10*6/uL Low 4.2-5.4 [facility] Comment on above: Performed By: #### L 500.4050, L100.0100 ####[facility] [address] [place], [address] RDW SD 44.5 fl High 35.1-43.9 [facility] Comment on above: Performed By: #### L 500.4050, L100.0100 ####[facility] [address] [place], [address] WBC (Bld) [#/Vol] 8.1 10*3/uL Normal 4.4-11.0 [facility] Comment on above: Performed By: #### L 500.4050, L100.0100 ####[facility] [address] [place], [address] Comprehensive Metabolic Prof ilon 05-05-2024 Albumin [Mass/Vol] 3.9 g/dL Normal 3.2-5.0 [facility] Comment on above: Performed By: #### L 500.4050, L100.0100 ####[facility] [address] [place], [address] Albumin/Globulin [Mass ratio] 1.1 {ratio} Normal 0.9-2.4 [facility] Comment on above: Performed By: #### L 500.4050, L100.0100 ####[facility] [address] [place], [address] ALK P 65 U/L Normal 45-117 [facility] [facility] Comment on above: Performed By: #### L 500.4050, L100.0100 ####[facility] [address] [place], [address] ALT [Catalytic activity/Vol] 24 U/L Normal 13-56 [facility] Comment on above: Performed By: #### L 500.4050, L100.0100 ####[facility] [address] [place], [address] AST [Catalytic activity/Vol] 14 U/L Low 15-37 [facility] Comment on above: Performed By: #### L 500.4050, L100.0100 ####[facility] [address] [place], [address] Bilirubin [Mass/Vol] 0.30 mg/dL Normal 0.20-1.00 [facility] Comment on above: Result Comment: For patients on eltrombopag therapy, use of Dimension [place] TBIL is not recommended. Performed By: #### L 500.4050, L100.0100 ####[facility] [address] [place], [address] BUN/CRE 24.5 RATIO High 10-20 [facility] Comment on above: Performed By: #### L 500.4050, L100.0100 ####[facility] [address] [place], [address] CA,Total 9.0 mg/dL Normal 8.5-10.1 [facility] Comment on above: Performed By: #### L 500.4050, L100.0100 ####[facility] [address] [place], [address] Chloride [Moles/Vol] 109 mmol/L High 98-107 [facility] Comment on above: Performed By: #### L 500.4050, L100.0100 ####[facility] [address] [place], [address] CO2 [Moles/Vol] 27.0 mmol/L Normal 21.0-32.0 [facility] Comment on above: Performed By: #### L 500.4050, L100.0100 ####[facility] [address] [place], [address] Creatinine [Mass/Vol] 0.69 mg/dL Normal 0.55-1.02 [facility] Comment on above: Result Comment: The validity of the calculated GFR GFRAA in patients over70 years has not been determined. Clinical correlation isessential. Performed By: #### L 500.4050, L100.0100 ####[facility] [address] [place], [address] EST GFR - AA 108 mL/min Normal >60 [facility] Comment on above: Result Comment: Afri can Icelandic GFR Calc Performed By: #### L 500.4050, L100.0100 ####[facility] [address] [place], [address] GAP 5 Normal 5-15 [facility] Comment on above: Performed By: #### L 500.4050, L100.0100 ####[facility] [address] [place], [address] GFR/1.73 sq M.predicted among non-blacks MDRD (S/P/Bld) [Vol rate/Area] 89 mL/min/{1.73_m2} Normal >60 [facility] Comment on above: Result Comment: Non- GFR Calc Performed By: #### L 500.4050, L100.0100 ####[facility] [address] [place], [address] Globulin (S) [Mass/Vol] 3.4 g/dL Normal 2.2-4.2 [facility] Comment on above: Performed By: #### L 500.4050, L100.0100 ####[facility] [address] [place], [address] Glucose [Mass/Vol] 96 mg/dL Normal 74-106 [facility] Comment on above: Performed By: #### L 500.4050, L100.0100 ####[facility] [address] [place], [address] Potassium [Moles/Vol] 3.8 mmol/L Normal 3.5-5.1 [facility] Comment on above: Performed By: #### L 500.4050, L100.0100 ####[facility] [address] [place], [address] Sodium [Moles/Vol] 142 mmol/L Normal 136-145 [facility] Comment on above: Performed By: #### L 500.4050, L100.0100 ####[facility] [address] [place], [address] T PROT 7.3 g/dL Normal 6.4-8.2 [facility] Comment on above: Performed By: #### L 500.4050, L100.0100 ####[facility] [address] [place], [address] Urea nitrogen [Mass/Vol] 17 mg/dL Normal 7-18 [facility] Comment on above: Performed By: #### L 500.4050, L100.0100 ####[facility] [address] [place], [address] Oncology Visit Reporton Oncology Visit Report Normal [facility] 36on 05-04-2024 36 Called patient by ph one to discuss plans for follow-up. At the time of our call, patient was in the oncology office at [place] [facility]. Navigator was able to speak with providers at the cancer center ([facility]). They are aware of recommendations for MRI brain, med onc, rad onc appointments and appointments are being scheduled at this time. Navigator faxed conference recommendations and path reports to providers at [phone]. Provided navigator contact information in case they have additional questions. Normal [facility] 36 Spoke with patient regarding bronchoscopy results. 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 Reviewed at thoracic conference. Nodule enlarged rapidly and significantly and is very PET avid. Positive findings are from left paratracheal lymph node. Patient lives in [place]. Navigator to coordinate referrals to med onc and rad onc as well as MRI brain through referring [place] pulmonary practice assuming patient desires cancer care closer to home. Normal [facility] Progress Noteon 05-04-2024 Progress Note THORACIC ONCOLOGY AN D LUNG NODULE TUMOR BOARD RECOMMENDATIONS Consensus Recommendation Summary Privileged Information TUMOR BOARD CLINICAL SUMMARY Basic Demographic Information Andrea Calix Date of presentation : 05/04/24 1955 Presenting physician: Dr. Jarek Vu 68 y.o. [] Previous presentation date : Presentation Type [x] Prospective [] Retrospective [] Nodule Brief Clinical Summary & Tumor Board Recommendations 2 Diagnosis Small Cell Ca Presenter: Dr. Vu Screenin11/26/23; 11/12/22; 11/09/21; 10/26/19 @ [place] (in PACS) Name Andrea Calix Surgeon: CTC: 04/21/24; 02/24/20 [facility] MR#/Epic [id number] Oncologist: CTAP: /Age [birth year] 68 yo Rad Oncologist: MRI: Gender Female Cartographic Drafter: Dr. Bentley Reyes/ Cristiana Linton, [employer] ([place]); Dr. Vu PET: 03/30/24 @ [place] (in PACS) Smoking History: ? Former > 20 pk yr Quit 2016 PCP: DIPTI Willis PFT: 02/08/20 @ [place] ?Prospective []Retrospective Other: PATH: EBUS/ENB 04/26/24; CT BX 03/23/24 @ [place] (unsuccessful) Clinical Stage:IIIA T1c N2 M Path Stage: T N M Other: Brief Summary: Undergoing annual lung screening at [facility] since 2019. Screening 11/26/23 with Rads 4A findings. Referred to [place] [facility] and sent for CT lung biopsy which was unsuccessful due to bony prominences. Sent for PET scan then referred to [facility] for EBUS/ENB. Now presents to review imaging, path, and plan of care. Recommendations: 1. MRI Brain 2. Med Onc Eval 3. Rad Onc Eval Available Protocol Recommendation [] Yes Protocol: Report Completed by Alka Talbot RCP 05/04/2024 Thoracic Tumor Board Moderator-Keren Pace DO Recommendations from Tumor Conference are based on national evidence based guidelines. The plan used by the managing physician(s) may vary based on the status of the individual patient and the reports results made available at time of presentation. We recognize that this data set may change and that the final treatment plan may differ from this recommendation. Normal [facility] Pulmonary Visit Reporton Pulmonary Visit Report Normal [facility] XR CHEST 1 VIEWon 04-28-2024 XR CHEST 1 VIEW Patient Name: ANDREA LEE : 1955 [facility]#: [id number] Exam Date/Time: 04/26/2024 11:00 Procedure: XR CHEST 1 VIEW Ordering Provider: VU BRIAN Reason For Exam: s/p DIONY biopsy and BAL Clinical History: s/p DIONY biopsy and BAL Comparison: CT from 04/21/2024 Technique: Single AP radiograph of the chest. Findings: Cardiomediastinal silhouette and pulmonary vasculature are within normal limits. Nodular density in the lateral left mid lung. Basilar predominant interstitial coarsening. No sizable pneumothorax. IMPRESSION: 1. No pneumothorax. 2. Nodular density redemonstrated in the lateral left midlung. 3. Basilar predominant interstitial disease, likely fibrosis. Report Dictated on Electronically Signed By: Yong Hernandez DR Electronically Signed Date/Time: 04/28/2024 9:53 AM EST Normal [facility] AFB CULTUREon 04-26-2024 AFB CULTURE AFB CULTURE Referenc e No growth at 6 weeks AFB STAIN Reference No acid fast bacilli seen by fluorescent microscopy ORDER COMMENTS: Stain Reference Range: No acid fast bacilli seen by fluorescent microscopy. [ S = SUSCEPTIBLE R = RESISTANT I = INTERMEDIATE S-DD = Susceptible-dose dependent NS = Non-susceptible NO = No Interpretation ] Normal [facility] Comment on above: Performed By: #### L [id number] ####Buckle Sewer: ROSEMARY ARNOLD ([id number])[address] FUNGAL CULTUREon 04-26-2024 FUNGAL CULTURE FUNGAL CULTURE (A) Reference RONNY GLABRATA Rare Ronny glabrata (A) [ S = SUSCEPTIBLE R = RESISTANT I = INTERMEDIATE S-DD = Susceptible-dose dependent NS = Non-susceptible NO = No Interpretation ] Normal [facility] Comment on above: Performed By: #### L [id number] #### Buckle Sewer: ROSEMARY ARNOLD ([id number]) [address] FUNGAL STAINon 04-26-2024 FUNGAL STAIN FUNGAL STAIN Referen ce No fungal elements seen ORDER COMMENTS: Reference Range: No fungal elements seen [ S = SUSCEPTIBLE R = RESISTANT I = INTERMEDIATE S-DD = Susceptible-dose dependent NS = Non-susceptible NO = No Interpretation ] Normal [facility] Comment on above: Performed By: #### L [id number], [id number] ####Buckle Sewer: ROSEMARY ARNOLD ([id number])[facility])[address] [place] [address] No Panel Informationon 04-26 There is no interpretation needed for this exam. IMAGING Nursing Noteon 04-26-2024 Nursing Note Home going instructi ons given with verbal explanation. Stated understanding. Dentures and glasses returned to patient from belongings bag. Normal [facility] Nursing Note Xray to the room Normal [facility] RESPIRATORY CULTURE AND STAI Non 04-26-2024 RESPIRATORY CULTURE AND STAIN RESPIRATORY CULTURE Reference Rare respiratory jody present. GRAM STAIN RESULT Reference No epithelial cells seen No polymorphonuclear leukocytes seen No organisms seen [ S = SUSCEPTIBLE R = RESISTANT I = INTERMEDIATE S-DD = Susceptible-dose dependent NS = Non-susceptible NO = No Interpretation ] Normal [facility] Comment on above: Performed By: #### L [id number], [id number] ####Buckle Sewer: ROSEMARY ARNOLD ([id number])[address] CHEST WO IV CONTRASTon CT CHEST WO IV CONTRAST [facility] Name[facility] CALIX : 1955 [id number] Exam Date/Time: 04/21/2024 11:19 Procedure: CT CHEST WO IV CONTRAST Ordering Provider: VU BRIAN Reason For Exam: Soft tissue mass, chest, US/xray nondiagnostic EXAMINATION: CT CHEST WO IV CONTRAST CLINICAL HISTORY: Soft tissue mass, chest, US/xray nondiagnostic COMPARISON: 04/21/2024 and 03/30/2024 TECHNIQUE: Contiguous axial images of the chest without contrast were obtained from above the lung apices through the level of the adrenal glands. Dose reduction was employed with automated exposure control. FINDINGS: Cardiovasculature: Heart and aorta appear normal. Mediastinum/Pericardium : A 2.3 cm cystic structure in the anterior mediastinum (3:34) had no FDG uptake on the previous PET/CT and is most likely a cyst. Pleura: No pleural effusion. Central Airways: Widely patent. Lungs: Mild diffuse subpleural fibrotic interstitial opacities bilaterally. There is mild architectural distortion and bronchiectasis anteriorly in the left upper lobe and mild symmetrical bronchiectasis elsewhere. No airspace consolidation. Nodules: * A 2.1 x 1.4 x 1.9 cm pleural-based nodular opacities present laterally in the left upper lobe (4:69). This was hypermetabolic on the patient's recent PET/CT and is increase in size previously measuring 1.4 x 1 x 1.2 cm on the most recent chest CT and 0.[address] from 02/24/2024. * Unchanged 6 mm right upper lobe nodule (4:118). Lymph Nodes: Pathologic mediastinal lymphadenopathy was hypermetabolic on PET/CT and has worsened since the recent chest CT. A 1.7 cm left lower paratracheal lymph node previously measured 1.2 cm (3:36) and an AP window lymph node measures 1.4 cm versus 0.9 cm (3:37). There is also a 1.8 cm left superior hilar lymph node (3:38) which previously measured 1 cm. No supraclavicular or axillary lymphadenopathy. Included images of the upper abdomen: No adrenal nodules. Visualized musculoskeletal structures: No acute fracture or destructive osseous lesion is identified. IMPRESSION: 1. Further enlargement of the pleural-based left upper lobe lung nodule (2.1 cm versus 1.4 cm) which was hypermetabolic on the prior PET/CT and likely represents primary malignancy. 2. Progression of mediastinal and left hilar lymphadenopathy, also hypermetabolic on the prior PET/CT. 3. Stable 2.3 cm cystic lesion in the anterior mediastinum, not hypermetabolic on the recent PET/CT, and likely a benign cyst. 4. Stable 6 mm right upper lobe lung nodule. 5. Diffuse subpleural interstitial fibrotic opacities bilaterally with mild bronchiectasis. Report Dictated on Electronically Signed By: Herb Guzman MD Electronically Signed Date/Time: 04/23/2024 8:47 AM EST Pt states her doctor found a lump about a week ago after a PET scan on her LT lung. Pt states this lump does cause her pain and some sob. Pt denies any smoking hx or heart or lung conditions. [place] [address]on 04-22-2024 36 Andrea notified. [facility] 36 Checked with Veronica MCCAIN and was informed that Pt is ok taking Vitamin C and D3. [place] [address]on 04-21-2024 36 Pt's Keenan called in leaving a . Called Keenan back and Reread the instructions with him. He asked about Tylenol because his takes It regularly. Explained to Keenan per instructions It's safe for his to take Tylenol. Keenan explained that his is also takes Vit D3 and C. Wants to know if this will effect her procedure? [address] 04-20-2024 36 Multiple prior lung screening CT scans and PET scans are now loaded to PACS for review. [facility] 36 Navigator sent right fax request to [facility] for electronic push of all prior lung screening CT scans, CT chest scans, and PET scans. [facility] 36 Patient scheduled fo r EBUS/ENB Physician performing: Dr. Jarek Vu MD Location: [facility] ENDOSCOPY Bronch Date: 04/26/24 Time: 9 am Arrival time: 730 am Telephone visit scheduled for results? yes Procedure placed on physician's outlook calendar? yes Does patient take blood thinners? No Does patient take ASA?No Does patient take NSAIDS? No Does patient take diabetic medications? Yes - metformin Does patient have Pacemaker, defibrillator, life vest, other implants? No Recent illness or covid exposure? No Chance of ? No Patient aware will need transportation home from hospital? Yes Patient instructed to bring insurance card, photo ID and mask? Yes Surgery Scheduling Patient notified of procedure date, time, prep/NPO status, arrival time, location and entrance, must have a ride, and to bring: drivers license, insurance card, mask, med list. Reviewed prep and itinerary with patient? yes Patient voices understanding? Yes [address] 04-19-[address] Vu recommend ed getting chest CT scheduled sooner and okay to schedule 04/26 at [facility] with him if bronch time available via secure chat. This RN was able to get chest CT rescheduled to Saturday 04/21 at 1130 am. Patient is aware of change in date/time. Scheduled EBUS/ENB for 04/26/[address] at [address] Vu at [facility]. Patient and spouse agreeable to have procedure prep/itinerary sent via [employer]. They will call if any questions. Normal [facility] 6 Minute Walk Teston 024 6 Minute Walk Test Normal [facility] 37on 04-16-2024 37 YOUR APPOINTMENT TOElham SANTIAGO WAS WITH THE [email or web address] LUNG NODULE CLINIC, COPD CLINIC, PULMONARY AND SLEEP MEDICINE OFFICE. PLEASE CALL OUR OFFICE AT [phone] IF YOU HAVE NOT RECEIVED YOUR TEST RESULTS 7 DAYS AFTER TESTING IS COMPLETED. PLEASE REMEMBER TO REQUEST REFILLS AT YOUR OFFICE VISITS. PHONE/FAX REQUESTS REQUIRE 48-72 HOURS FOR RESPONSE. A FRIENDLY REMINDER COPAYS ARE DUE AT TIME OF SERVICE. THANK YOU. Our Patients Are Important! We want to improve and you can help. After your visit we want you to feel: Listened to, Respected and have your health care explained. You may receive a survey asking you about your visit. Please complete the survey. We will use your feedback to make improvements. COVID-19 VACCINATION INFORMATION: PH. [phone] [email or web address]/ VACCINE [facility] Central Scheduling [phone] [facility] Sleep Scheduling [phone] Normal [facility] Office Visiton 04-16-2024 Follow-up visit [id number] Andrea Calix 1955 F Date Provider Department Center 04/16/2024 [id number] ALLISON [facility] PUL None No family history on file Level of Service:84608 [place] OFFICE/OUTPATIENT NEW HIGH MDM 60 MINUTES Reason for Visit and Comments: New Patient [542] - needs ct guided bx Normal [facility] Progress Noteon 04-16-2024 Progress Note Chief Complaint: Chief Complaint Patient presents with New Patient needs ct guided bx History of Present Illness: HPI 68 y/o female seen in [place] for enlarging left (upper lobe) nodule/mass. Had been followed by pulmonary there. Enlargement prompted attempt at CT biopsy which could not be performed. She had a PET scan which showed activity in the DIONY as well as mediastinal (?AP window) lymph nodes. PFTs at [place] showed overall normal pulmonary mechanics with only mildly diminished gas exchange. She takes Trelegy for COPD. She is a former smoker. Overall healthy and active. 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 No occupational exposures. I reviewed her outside PET and personally reviewed/interpreted her PFTs. I reviewed her prior outside pulmonary notes. I discussed her case directly with our navigator to obtain outside imaging and coordinate care. Past Medical History: COPD, hypothyroid, DMII, hyperlipidemia Social History: Social History Socioeconomic History Marital status: Tobacco Use Smoking status: Former Current packs/day: 0.00 Types: Cigarettes Quit date: 2014 Years since quittin.8 Smokeless tobacco: Never Family History: non-contributory per patient ROS: Review of Systems All other systems reviewed and are negative. Medications: Current Outpatient Medications Medication Sig Dispense Refill albuterol 108 (90 Base) MCG/ACT inhaler Inhale 2 puffs every 6 hours as needed for wheezing or shortness of breath. DULoxetine (Cymbalta) [address] capsule Take 60 mg by mouth daily. levothyroxine (Synthroid, Levoxyl) 100 MCG tablet Take 100 mcg by mouth daily. lovastatin (Mevacor) 40 MG tablet Take 40 mg by mouth Nightly. metFORMIN (Glucophage) 1000 MG tablet 1,000 mg daily (with breakfast). Trelegy Ellipta 100-62.5-25 MCG/ACT aerosol powder Inhale 1 puff daily. triamcinolone (Kenalog) 0.1 % cream Apply 1 Application topically 2 times daily. No current facility-administered medications for this visit. Allergies: Allergies Allergen Reactions Zoster Vaccine Recombinant, Adjuvanted Other Reaction(s): Rash Physical Exam: BP Temp Pulse Resp SpO2 BP 132/81 Pulse 69 Ht 5' 5 (1.651 m) Wt 219 lb 12.8 oz (99.7 kg) SpO2 96% BMI 36.58 kg/m? Physical Exam Constitutional: General: She is not in acute distress. Appearance: She is obese. She is not ill-appearing or toxic-appearing. HENT: Head: Normocephalic and atraumatic. Nose: Nose normal. No congestion or rhinorrhea. Mouth/Throat: Mouth: Mucous membranes are moist. Pharynx: Oropharynx is clear. No oropharyngeal exudate. Eyes: General: No scleral icterus. Conjunctiva/sclera: Conjunctivae normal. Cardiovascular: Rate and Rhythm: Normal rate and regular rhythm. Heart sounds: No murmur heard. No friction rub. No gallop. Pulmonary: Effort: Pulmonary effort is normal. No respiratory distress. Breath sounds: No stridor. No wheezing, rhonchi or rales. Abdominal: General: There is no distension. Musculoskeletal: General: No swelling, tenderness, deformity or signs of injury. Skin: General: Skin is warm and dry. Coloration: Skin is not pale. Findings: No erythema or rash. Neurological: General: No focal deficit present. Mental Status: She is alert and oriented to person, place, and time. Psychiatric: Mood and Affect: Mood normal. Behavior: Behavior normal. Thought Content: Thought content normal. Assessment and Plan: 1. Lung mass (Primary) Will obtain outside PET. Given PET findings though, anticipate sampling/staging with EBUS and navigational bronchoscopy. Suspicious/concerning for malignancy. Will coordinate care - including potential surgical evaluation if appropriate or coordinate care closer to home depending on needs based on pathology/staging. Given time frame and need for navigational bronchoscopy will repeat CT now for planning purposes. - CT chest wo IV contrast; Future 2. Mediastinal adenopathy Assess with EBUS as above. - CT chest wo IV contrast; Future 3. Chronic obstructive pulmonary disease, unspecified COPD type (HCC) Mild disease. Should not limit treatment options. Well controlled with ICS/LABA/LAMA Follow-up: 1 week after bronchoscopy Normal [facility] Pulmonary Visit Reporton Pulmonary Visit Report Normal [facility] PET/CT Tumor Base -Thigh Ini ton 03-30-2024 PET/CT Tumor Base -Thigh Init Normal [facility] Partial Thromboplast Timeon 02-26-2024 aPTT Coag (Bld) [Time] 28.9 s Normal 24.1-36.2 [facility] Comment on above: Performed By: #### L 100.1900, L300.4310, L300.3900 ####[facility] [address] [place], [address] Platelet Counton 02-26-2024 Platelets (Bld) [#/Vol] 287 10*3/uL Normal 150-450 [facility] Comment on above: Performed By: #### L 100.1900, L300.4310, L300.3900 ####[facility] [address] [place], [address] Prothrombin Time w/INRon INR Coag (PPP) [Relative time] 1.1 {INR} Normal [facility] Comment on above: Performed By: #### L 100.1900, L300.4310, L300.3900 ####[facility] [address] [place], [address] PT Coag (PPP) [Time] 13.7 s Normal 11.7-14.9 [facility] Comment on above: Performed By: #### L 100.1900, L300.4310, L300.3900 ####[facility] [address] [place], [address] Pulmonary Visit Reporton Pulmonary Visit Report Normal [facility] Chest without Contraston Chest without Contrast Normal [facility] Serum or plasma thyroid stim ulating hormone (TSH) measurement (units/volume)Ordered By: Oscar Mott on 09-19-2023 TSH Qn 4.17 uIU/mL 0.358-3.74 [facility] Thin prep Papanicolaou smear with manual screeningOrdered By: Oscar Mott on 09-19-2023 Thin prep Papanicolaou smear with manual screening 0.90 ng/dL 0.76-1.46 [facility] Absolute lymphocyte countOrd ered By: Oscar Mott on 03-20-2023 Lymphocytes Auto (Unsp spec) [#/Vol] 1.96 10*3/uL 0.83-4.51 [facility] Basophil percentageOrdered B y: Oscar Mott on 03-20-2023 Basophils/100 WBC (Bld) 0.5 % 0-1 [facility] Bilirubin [Mass/Vol] 0.40 mg/dL 0.20-1.00 [facility] Comment on above: For patients on eltr ombopag therapy, use of Dimension [place] TBIL is not recommended. Chloride [Moles/Vol] 107 mmol/L 98-107 [facility] Cholesterol [Mass/Vol] 137 mg/dL <200 [facility] Comment on above: <200 mg/dL Desirable 200-240 mg/dL Borderline >240 mg/dL High Risk Eosinophils/100 WBC (Bld) 3.1 % 0-5 [facility] Glucose [Mass/Vol] 121 mg/dL 74-106 [facility] Comment on above: Fasting Glucose resu lt from 100 to 125 mg/dL suggests IMPAIRED HOMEOSTASIS per A.D.A. criteria. Neutrophils (Bld) [#/Vol] 4.6 10*3/uL 2.0-7.7 [facility] Neutrophils/100 WBC (Bld) 61.5 % 47-70 [facility] Potassium [Moles/Vol] 4.1 mmol/L 3.5-5.1 [facility] Protein [Mass/Vol] 7.3 g/dL 6.4-8.2 [facility] Sodium [Moles/Vol] 140 mmol/L 136-145 [facility] Triglyceride [Mass/Vol] 141 mg/dL <199 [facility] Comment on above: The drugs N-Acetylcy steine and Metamizole may falsely depress this assay.Serum Triglycerides Reference Interval Normal <150 mg/dL Borderline high 150 - 199 mg/dL High 200 - 499 mg/dL Very High > or = 500 mg/dL WBC (Bld) [#/Vol] 7.4 10*3/uL 4.4-11.0 [facility] Blood erythrocytes count (nu mber/volume)Ordered By: Oscar Mott on 03-20-2023 RBC (Bld) [#/Vol] 4.22 10*6/uL 4.2-5.4 [facility] Blood hemoglobin measurement (mass/volume)Ordered By: Oscar Mott on 03-20-2023 Hemoglobin (Bld) [Mass/Vol] 12.9 g/dL 12.0-15.0 [facility] Blood lymphocytes/100 leukoc ytesOrdered By: Oscardavy Mott on 03-20-2023 Lymphocytes/100 WBC (Bld) 26.4 % 19-41 [facility] Blood monocytes/100 leukocyt esOrdered By: Shelby David on 03-20-2023 Monocytes/100 WBC (Bld) 8.2 % 0-10 [facility] Blood platelet mean volumeOr dered By: Oscardavy Mott on 03-20-2023 Platelet mean volume (Bld) [Entitic vol] 11.1 fL 6.2-12.0 [facility] Determination of erythrocyte mean corpuscular volume (MCV)Ordered By: Oscardavy Mott on 03-20-2023 MCV (RBC) [Entitic vol] 98.8 fL 81-99 [facility] Hematocrit Auto (Bld) [Volum e fraction]Ordered By: Oscardavy Mott on 03-20-2023 Hematocrit (Bld) [Volume fraction] 41.7 % 37-47 [facility] Laboratory - Chemistry and C hemistry - challengeOrdered By: Cone Healthgar on 03-20-2023 ALP [Catalytic activity/Vol] 72 U/L 45-117 [facility] ALT [Catalytic activity/Vol] 27 U/L 13-56 [facility] CO2 [Moles/Vol] 28.0 mmol/L 21.0-32.0 [facility] Globulin (S) [Mass/Vol] 3.6 g/dL 2.2-4.2 [facility] Urea nitrogen/Creatinine [Mass ratio] 21.3 mg/mg 10-20 [facility] Laboratory - Hematology and Cell countsOrdered By: Shelby David on 03-20-2023 Erythrocyte distribution width (RBC) [Entitic vol] 46.9 fL 35.1-43.9 [facility] Erythrocyte distribution width (RBC) [Ratio] 12.9 % 11.6-14.6 [facility] Immature granulocytes/100 WBC (Bld) 0.300 % 0.0-0.9 [facility] Comment on above: IG% - Immature Granu locytes (promyelocytes, myelocytes and metamyelocytes) > 1% indicates that a LEFT SHIFT is Present. MCH (RBC) [Entitic mass] 30.6 pg 27.0-32.0 [facility] Nucleated RBC/100 WBC (Bld) [Ratio] 0 % 0-5 [facility] MCHC Auto (RBC) [Mass/Vol]Or dered By: Oscar Mott on 03-20-2023 MCHC (RBC) [Mass/Vol] 30.9 g/dL 32-36 [facility] No Panel InformationOrdered By: Oscar Mott on 03-20-2023 Estimated GFR (MDRD) Amer 81 mL/min >60 [facility] Comment on above: GFR Calc Estimated GFR (MDRD) Non-Af Amer 67 mL/min >60 [facility] Comment on above: Non- GFR Calc Thyroid Stimulating Hormone (TSH) 5.18 uIU/mL 0.358-3.74 [facility] Urine Microalbumin/Creatinin e Ratio 12.1 mg/g CRE <30 [facility] Vitamin D 25-Hydroxy 45.5 ng/mL [facility] Comment on above: Vitamin D 25(OH) Sta tus Range Deficiency <20 ng/mL (50nmol/L) Insufficiency 20 - 30 ng/mL (50 - 75 nmol/L) Sufficiency 30 - 100 ng/mL (75 - 250 nmol/L) Toxicity >100 ng/mL (>250 nmol/L) Platelets bldOrdered By: Ilan Mott on 03-20-2023 Platelets (Bld) [#/Vol] 274 10*3/uL 150-450 [facility] Serum or plasma albumin chacorta urement (mass/volume)Ordered By: Oscar Mott on 03-20-2023 Albumin [Mass/Vol] 3.7 g/dL 3.2-5.0 [facility] Serum or plasma albumin/glob ulin mass ratioOrdered By: Oscar Mott on 03-20-2023 Albumin/Globulin [Mass ratio] 1.0 {ratio} 0.9-2.4 [facility] Serum or plasma calcium chacorta urement (mass/volume)Ordered By: Oscar Mott on 03-20-2023 Calcium [Mass/Vol] 8.8 mg/dL 8.5-10.1 [facility] Serum or plasma cholesterol in HDL measurement (mass/volume)Ordered By: Oscar Mott on 03-20-2023 Cholesterol in HDL [Mass/Vol] 42 mg/dL >40 [facility] Comment on above: The drugs N-Acetylcy steine and Metamizole may falsely depress this assay. Reference Range HDL <40 mg/dL Low HDL Cholesterol HDL >or= 60 mg/dL High HDL Cholesterol Serum or plasma cholesterol in VLDL measurement (mass/volume)Ordered By: Oscar Mott on 03-20-2023 Cholesterol in VLDL [Mass/Vol] 28 mg/dL 5-40 [facility] Serum or plasma creatinine m easurement (mass/volume)Ordered By: Oscar Mott on 03-20-2023 Creatinine [Mass/Vol] 0.89 mg/dL 0.55-1.02 [facility] Comment on above: The validity of the calculated GFR & GFRAA in patients over 70 years has not been determined. Clinical correlation is essential. Serum or plasma low density lipoprotein (LDL) cholesterol measurement (mass/volume)Ordered By: Oscar Mott on 03-20-2023 Cholesterol in LDL [Mass/Vol] 67 mg/dL 0-130 [facility] Serum or plasma urea nitroge n measurement (mass/volume)Ordered By: Oscar Mott on 03-20-2023 Urea nitrogen [Mass/Vol] 19 mg/dL 7-18 [facility] Thin prep Papanicolaou smear with manual screeningOrdered By: Oscar Mott on 03-20-2023 Thin prep Papanicolaou smear with manual screening 13 U/L 15-37 [facility] Thin prep Papanicolaou smear with manual screening 5 5-15 [facility] Thin prep Papanicolaou smear with manual screening 27.5 mg/L NO RANGE EST. [facility] Urine creatinine measurement (mass/volume)Ordered By: Oscar Mott on 03-20-2023 Creatinine (U) [Mass/Vol] 228.00 mg/dL NO RANGE EST. [facility] Laboratory - Chemistry and C hemistry - challengeon 09-13-2022 Free T4 [Mass/Vol] 0.77 ng/dL 0.76-1.46 [facility] No Panel Informationon 09-13 Thyroid Stimulating Hormone (TSH) 2.86 uIU/mL 0.358-3.74 [facility] Laboratory - Chemistry and C hemistry - challengeon 12-21-2021 Free T4 [Mass/Vol] 0.84 ng/dL 0.76-1.46 [facility] Work Phone: No Panel Informationon 12-21 Thyroid Stimulating Hormone (TSH) 1.72 uIU/mL 0.358-3.74 [facility] Work Phone: ZAY DIAG W HENRRY LTon 022 [facility] W [facility]ENRR[facility] LT * * *Final Report* * * DATE OF EXAM: Nov 07 2021 10:33AM WRW [id number] - [facility]EN[facility] LT / PROCEDURE REASON: LT BREST ABNORMALITY * * * * Physician Interpretation * * * * RESULT: #[id number] - [facility] W [facility]ENRR[facility] LT UNILATERAL LEFT DIGITAL DIAGNOSTIC MAMMOGRAM TOMOSYNTHESIS WITH CAD: 11/07/2021 HISTORY: Lt Carmen / Call back/abnormal mamm: Left st Abnormality. RESULT: TECHNIQUE: The study was acquired using full field digital technology and interpreted from soft copy. Digital Breast Tomosynthesis (DBT) images were obtained and used to assist in the interpretation of this examination. Current study was also evaluated with a Computer Aided Detection (CAD). Comparison is made to exams dated: 09/21/2021 mammogram, 08/23/2020 mammogram - [facility], 03/01/2016 mammogram, and 10/06/2014 mammogram - [facility]. The tissue of left breast is heterogeneously dense. This may lower the sensitivity of mammography. There is an oval focal asymmetry with a circumscribed margin in the left breast at 6 o'clock middle depth. This is seen in additional views. No other significant masses or calcifications are seen in the breast. IMPRESSION: INCOMPLETE: NEEDS ADDITIONAL IMAGING EVALUATION The oval focal asymmetry in the left breast is indeterminate. An ultrasound is recommended. Hugo dunham/penrad:11/07/2021 10:56:29 Paint Line Supervisor(s): RT Michel(R)(M), [facility] Mammogram BI-RADS: 0 Incomplete: needs additional imaging evaluation Multiple national specialty organizations have released breast cancer screening guidelines for women at average risk for developing breast cancer - guidelines that are based on both evidence and opinion, yet differ on when to start and how often to screen for breast cancer. With representation from Breast Imaging, Internal Medicine, Women's Health, Family Medicine, and Medical/Surgical Oncology, the [facility] has carefully reviewed the data and reached the following consensus: 1) All women should engage in shared decision-making with their providers to decide when to start and how often to screen; 2) All women should have the opportunity to start screening mammography at age 40; 3) For women ages 45-55, we recommend annual screening mammograms; 4) For women ages 55 and over, we support both the transition from an annual to a biennial interval if this aligns more with patient's values and preferences, or continuation with annual screening; 5) All women should discuss with their providers when to stop screening mammograms. Wildland Fire Operations Specialist: Marylou Transcribe Date/Time: Nov 07 2021 10:22A Dictated by: HUGO CUETO MD This examination was interpreted and the report reviewed and electronically signed by: HUGO CUETO MD on Nov 07 2021 10:56AM EST [id number] Normal [facility] [employer]AST [employer] LTon 11-07 [employer] BREAST [employer] LT * * *Final Report* * * DATE OF EXAM: Nov 07 2021 10:53AM WRU [id number] - [employer]AST [employer] LT / PROCEDURE REASON: LT BREST ABNORMALITY * * * * Physician Interpretation * * * * #[id number] - [employer] BREAST [employer] LT LIMITED ULTRASOUND OF LEFT BREAST: 11/07/2021 HISTORY: Lt Brest Abnormality. RESULT: Comparison is made to exam dated: 11/07/2021 mammogram - [facility]. Color flow and real-time ultrasound of the left breast 6 o'clock region were performed. Madden scale images of the real-time examination were reviewed. There is a benign 0.7 cm x 0.4 cm x 0.7 cm oval cyst in the left breast at 6 o'clock middle depth 0.3 cm from the nipple. This oval cyst is anechoic with posterior acoustic enhancement. This correlates with mammography findings. Color flow imaging demonstrates that there is no vascularity present. IMPRESSION: BENIGN FINDING There is no sonographic evidence of malignancy. The 0.7 cm x 0.4 cm x 0.7 cm oval cyst in the left breast is benign. Return to annual mammogram screening schedule is recommended. Hugo dunham/marylou:11/07/2021 11:01:21 Paint Line Supervisor(s): Marixa Felton [facility] Ultrasound BI-RADS: 2 Benign finding Multiple national specialty organizations have released breast cancer screening guidelines for women at average risk for developing breast cancer - guidelines that are based on both evidence and opinion, yet differ on when to start and how often to screen for breast cancer. With representation from Breast Imaging, Internal Medicine, Women's Health, Family Medicine, and Medical/Surgical Oncology, the [facility] has carefully reviewed the data and reached the following consensus: 1) All women should engage in shared decision-making with their providers to decide when to start and how often to screen; 2) All women should have the opportunity to start screening mammography at age 40; 3) For women ages 45-55, we recommend annual screening mammograms; 4) For women ages 55 and over, we support both the transition from an annual to a biennial interval if this aligns more with patient's values and preferences, or continuation with annual screening; 5) All women should discuss with their providers when to stop screening mammograms. Wild[employer] Operations Specialist: Marylou Transcribe Date/Time: Nov 07 2021 10:53A Dictated by : HUGO CUETO MD This examination was interpreted and the report reviewed and electronically signed by: HUGO CUETO MD on Nov 07 2021 11:01AM EST [id number] Normal [facility] CNCOon 09-21-2021 CNCO HNO ID: [id number] Author: Mammography Coordinator Service: ? Author Type: Physician Type: Letter Filed: 09/24/2021 11:38 PM Note Text: September 21, 2021 PID: [id number] Andrea Calix [address] [place] [address] Dear Ms. Calix, Your recent breast imaging exam on 09/21/2021 showed a possible finding that requires additional imaging studies for a complete evaluation. Most such findings are probably benign (not cancer). Your mammogram demonstrates that you have dense breast tissue, which could hide abnormalities. Dense breast tissue, in and of itself, is a relatively common condition. Therefore, this information is not provided to cause undue concern; rather, it is to raise your awareness and promote discussion with your health care provider regarding the presence of dense breast tissue in addition to other risk factors. If you have a healthcare provider who ordered/prescribed your screening mammogram: Please call [phone] or [phone]: [phone] to schedule an appointment for your additional imaging (if you have not already done so). If you DO NOT have a healthcare provider (ie you did not have an order/prescription for your screening mammogram): Please call to schedule an appointment for your additional imaging (if you have not already done so). You must have an order/prescription from your physician when calling to schedule your appointment. If your order/prescription is not electronic, you must bring the hard copy with you on the day of your exam to avoid delays. Your imaging studies and reports are kept on file at [facility] as part of your permanent medical record, and are available for your continuing care. Thank you for allowing us to help in meeting your health care needs. Sincerely, Dr. Jones Interpreting Radiologist [facility] (Additional imaging) Normal [facility] SCREENING W TOMOon 09-21 [facility] SCREENING W HENRRY * * *Final Report* * * DATE OF EXAM: Sep 21 2021 1:43PM WRW [id number] - [facility] SCREENING W HENRRY / PROCEDURE REASON: Screening Mammogram * * * * Physician Interpretation * * * * RESULT: #[id number] - [facility] SCREENING W HENRRY BILATERAL DIGITAL SCREENING MAMMOGRAM TOMOSYNTHESIS WITH CAD: 09/21/2021 HISTORY: Screening Mammogram / Screening Mammogram-Patient reports NO symptoms. /priors available for comparison / SEE TECH NOTE. RESULT: TECHNIQUE: The study was acquired using full field digital technology and interpreted from soft copy. Digital Breast Tomosynthesis (DBT) images were obtained and used to assist in the interpretation of this examination. Current study was also evaluated with a Computer Aided Detection (CAD). Comparison is made to exams dated: 08/23/2020 mammogram - [facility], 03/01/2016 mammogram, and 10/06/2014 mammogram - [facility]. The tissue of both breasts is heterogeneously dense. This may lower the sensitivity of mammography. There are multiple asymmetries in the left breast posterior depth central to the nipple seen on the craniocaudal view only. No other significant masses, calcifications, or other findings are seen in either breast. IMPRESSION: INCOMPLETE: NEEDS ADDITIONAL IMAGING EVALUATION The multiple asymmetries in the left breast are indeterminate. Additional views are recommended. Alejandar quintanilla/marylou:09/21/2021 16:31:38 Paint Line Supervisor(s): Shari You [facility] letter sent: Additional Imaging Needed Mammogram BI-RADS: 0 Incomplete: needs additional imaging evaluation If this report indicates you need additional imaging, and it has NOT yet been performed, please call , to schedule. We sincerely thank you for choosing the [facility] for your breast imaging needs. Multiple national specialty organizations have released breast cancer screening guidelines for women at average risk for developing breast cancer - guidelines that are based on both evidence and opinion, yet differ on when to start and how often to screen for breast cancer. With representation from Breast Imaging, Internal Medicine, Women's Health, Family Medicine, and Medical/Surgical Oncology, the [facility] has carefully reviewed the data and reached the following consensus: 1) All women should engage in shared decision-making with their providers to decide when to start and how often to screen; 2) All women should have the opportunity to start screening mammography at age 40; 3) For women ages 45-55, we recommend annual screening mammograms; 4) For women ages 55 and over, we support both the transition from an annual to a biennial interval if this aligns more with patient's values and preferences, or continuation with annual screening; 5) All women should discuss with their providers when to stop screening mammograms. Wild[employer] Specialist: Marylou Transcribe Date/Time: Sep 21 2021 1:27P Dictated by: ALEJANDRA JONES MD This examination was interpreted and the report reviewed and electronically signed by: ALEJANDRA JONES MD on Sep 21 2021 4:31PM EST [id number] Normal [facility] Office Visiton 04-30-2017 Documentation of current medications (procedure) Done Invalid Interpretation Code [facility] Work Phone: Tobacco smoking status NHIS Tobacco smoking status NHIS Invalid Interpretation Code [facility] Work Phone: Tobacco use [facility] Former smoker Invalid Interpretation Code [facility] Work Phone: Office Visiton 03-28-2017 Documentation of current medications (procedure) Done Invalid Interpretation Code [facility] Work Phone: Tobacco use [facility] Former smoker Invalid Interpretation Code [facility] Work Phone: Office Visiton 02-24-2017 Documentation of current medications (procedure) Done Invalid Interpretation Code [facility] Work Phone: Tobacco use [facility] Former smoker Invalid Interpretation Code [facility] Work Phone: Office Visit: OSAon 02-01-20 17 Documentation of current medications (procedure) Done Invalid Interpretation Code [facility] Work Phone: Tobacco use [facility] Former smoker Invalid Interpretation Code [facility] Work Phone: Office Visit: OSAon 10-10-19 17 Documentation of current medications (procedure) Done Invalid Interpretation Code [facility] Work Phone: Fall risk assessment No Invalid Interpretation Code [facility] Work Phone: Protein mass conc Done [facility] Work Phone: Tobacco smoking status NHIS Former smoker [facility] Work Phone: Tobacco use [facility] Former smoker Invalid Interpretation Code [facility] Work Phone: Vital Signs Date Time Vital Sign Value Performing Clinician Facility 02-15-2025 13:33-0400 Body height 162.56 cm Oscar Mott HYDROELECTRIC SYSTEMS TECHNICIAN-C Work Phone: [facility] 02-15-2025 13:30-0400 Body mass index (BMI) [Ratio] 35.9 kg/m2 Oscar David HYDROELECTRIC SYSTEMS TECHNICIAN-C Work Phone: [facility] 02-15-2025 13:30-0400 Body temperature 97.1 [degF] Oscar David HYDROELECTRIC SYSTEMS TECHNICIAN-C Work Phone: [facility] 02-15-2025 13:30-0400 Body weight 94.97 kg Oscar David HYDROELECTRIC SYSTEMS TECHNICIAN-C Work Phone: [facility] 02-15-2025 13:30-0400 Diastolic blood pressure 66 mm[Hg] Oscar David HYDROELECTRIC SYSTEMS TECHNICIAN-C Work Phone: [facility] 02-15-2025 13:30-0400 Heart rate 81 /min Oscar David HYDROELECTRIC SYSTEMS TECHNICIAN-C Work Phone: [facility] 02-15-2025 13:30-0400 Respiratory rate 18 /min Oscar David HYDROELECTRIC SYSTEMS TECHNICIAN-C Work Phone: [facility] 02-15-2025 13:30-0400 SaO2% (BldA) [Mass fraction] 95 % Oscar David HYDROELECTRIC SYSTEMS TECHNICIAN-C Work Phone: [facility] 02-15-2025 13:30-0400 Systolic blood pressure 106 mm[Hg] Oscar David HYDROELECTRIC SYSTEMS TECHNICIAN-C Work Phone: [facility] 02-01-2025 13:40-0400 Body height 162.56 cm Oscar David HYDROELECTRIC SYSTEMS TECHNICIAN-C Work Phone: [facility] 02-01-2025 13:40-0400 Body mass index (BMI) [Ratio] 36.2 kg/m2 Oscar David HYDROELECTRIC SYSTEMS TECHNICIAN-C Work Phone: [facility] 02-01-2025 13:40-0400 Body weight 95.7 kg Oscar David HYDROELECTRIC SYSTEMS TECHNICIAN-C Work Phone: [facility] 02-01-2025 13:40-0400 Diastolic blood pressure 57 mm[Hg] Oscar David HYDROELECTRIC SYSTEMS TECHNICIAN-C Work Phone: [facility] 02-01-2025 13:40-0400 Heart rate 84 /min Oscar David HYDROELECTRIC SYSTEMS TECHNICIAN-C Work Phone: [facility] 02-01-2025 13:40-0400 Respiratory rate 18 /min Oscar David HYDROELECTRIC SYSTEMS TECHNICIAN-C Work Phone: [facility] 02-01-2025 13:40-0400 SaO2% (BldA) [Mass fraction] 96 % Oscar David HYDROELECTRIC SYSTEMS TECHNICIAN-C Work Phone: [facility] 02-01-2025 13:40-0400 Systolic blood pressure 105 mm[Hg] Oscar David HYDROELECTRIC SYSTEMS TECHNICIAN-C Work Phone: [facility] 01-26-2025 12:06-0400 Body height 162.56 cm Oscar David HYDROELECTRIC SYSTEMS TECHNICIAN-C Work Phone: [facility] 01-26-2025 12:06-0400 Body mass index (BMI) [Ratio] 35.9 kg/m2 Oscar David HYDROELECTRIC SYSTEMS TECHNICIAN-C Work Phone: [facility] 01-26-2025 12:06-0400 Body temperature 97.9 [degF] Oscar David HYDROELECTRIC SYSTEMS TECHNICIAN-C Work Phone: [facility] 01-26-2025 12:06-0400 Body weight 94.97 kg Oscar David HYDROELECTRIC SYSTEMS TECHNICIAN-C Work Phone: [facility] 01-26-2025 12:06-0400 Diastolic blood pressure 85 mm[Hg] Oscar David HYDROELECTRIC SYSTEMS TECHNICIAN-C Work Phone: [facility] 01-26-2025 12:06-0400 Heart rate 77 /min Oscar David HYDROELECTRIC SYSTEMS TECHNICIAN-C Work Phone: [facility] 01-26-2025 12:06-0400 Respiratory rate 16 /min Oscar David HYDROELECTRIC SYSTEMS TECHNICIAN-C Work Phone: [facility] [facility] 01-26-2025 12:06-0400 SaO2% (BldA) [Mass fraction] 95 % Oscar David HYDROELECTRIC SYSTEMS TECHNICIAN-C Work Phone: [facility] 01-26-2025 12:06-0400 Systolic blood pressure 130 mm[Hg] Oscar David HYDROELECTRIC SYSTEMS TECHNICIAN-C Work Phone: [facility] 12-29-2024 14:04-0400 Body temperature 97.8 [degF] Oscar David HYDROELECTRIC SYSTEMS TECHNICIAN-C Work Phone: [facility] 12-29-2024 14:04-0400 Diastolic blood pressure 60 mm[Hg] Oscar David HYDROELECTRIC SYSTEMS TECHNICIAN-C Work Phone: [facility] 12-29-2024 14:04-0400 Heart rate 69 /min Oscar David HYDROELECTRIC SYSTEMS TECHNICIAN-C Work Phone: [facility] 12-29-2024 14:04-0400 Respiratory rate 16 /min Oscar David HYDROELECTRIC SYSTEMS TECHNICIAN-C Work Phone: [facility] 12-29-2024 14:04-0400 SaO2% (BldA) [Mass fraction] 98 % Oscar David HYDROELECTRIC SYSTEMS TECHNICIAN-C Work Phone: [facility] 12-29-2024 14:04-0400 Systolic blood pressure 120 mm[Hg] Oscar David HYDROELECTRIC SYSTEMS TECHNICIAN-C Work Phone: [facility] 12-29-2024 11:28-0400 Body height 162.56 cm Oscar David HYDROELECTRIC SYSTEMS TECHNICIAN-C Work Phone: [facility] 12-29-2024 11:28-0400 Body mass index (BMI) [Ratio] 36.2 kg/m2 Oscar David HYDROELECTRIC SYSTEMS TECHNICIAN-C Work Phone: [facility] 12-29-2024 11:28-0400 Body temperature 98.4 [degF] Oscar David HYDROELECTRIC SYSTEMS TECHNICIAN-C Work Phone: [facility] 12-29-2024 11:28-0400 Body weight 95.76 kg Oscar David HYDROELECTRIC SYSTEMS TECHNICIAN-C Work Phone: [facility] 12-29-2024 11:28-0400 Diastolic blood pressure 74 mm[Hg] Oscar David HYDROELECTRIC SYSTEMS TECHNICIAN-C Work Phone: [facility] 12-29-2024 11:28-0400 Heart rate 84 /min Oscar David HYDROELECTRIC SYSTEMS TECHNICIAN-C Work Phone: [facility] 12-29-2024 11:28-0400 Respiratory rate 18 /min Oscar David HYDROELECTRIC SYSTEMS TECHNICIAN-C Work Phone: [facility] 12-29-2024 11:28-0400 SaO2% (BldA) [Mass fraction] 98 % Oscar David HYDROELECTRIC SYSTEMS TECHNICIAN-C Work Phone: [facility] 12-29-2024 11:28-0400 Systolic blood pressure 121 mm[Hg] Oscar David HYDROELECTRIC SYSTEMS TECHNICIAN-C Work Phone: [facility] 12-01-2024 14:12-0400 Body temperature 96.5 [degF] Oscar David HYDROELECTRIC SYSTEMS TECHNICIAN-C Work Phone: [facility] 12-01-2024 14:12-0400 Diastolic blood pressure 59 mm[Hg] Oscar David HYDROELECTRIC SYSTEMS TECHNICIAN-C Work Phone: [facility] 12-01-2024 14:12-0400 Heart rate 74 /min Oscar David HYDROELECTRIC SYSTEMS TECHNICIAN-C Work Phone: [facility] 12-01-2024 14:12-0400 Respiratory rate 16 /min Oscar David HYDROELECTRIC SYSTEMS TECHNICIAN-C Work Phone: [facility] 12-01-2024 14:12-0400 SaO2% (BldA) [Mass fraction] 98 % Oscar David HYDROELECTRIC SYSTEMS TECHNICIAN-C Work Phone: [facility] 12-01-2024 14:12-0400 Systolic blood pressure 114 mm[Hg] Oscar David HYDROELECTRIC SYSTEMS TECHNICIAN-C Work Phone: [facility] 12-01-2024 11:36-0400 Body height 162.56 cm Oscar David HYDROELECTRIC SYSTEMS TECHNICIAN-C Work Phone: [facility] 12-01-2024 11:36-0400 Body mass index (BMI) [Ratio] 35.5 kg/m2 Oscar David HYDROELECTRIC SYSTEMS TECHNICIAN-C Work Phone: [facility] 12-01-2024 11:36-0400 Body temperature 97.7 [degF] Oscar David HYDROELECTRIC SYSTEMS TECHNICIAN-C Work Phone: [facility] 12-01-2024 11:36-0400 Body weight 93.89 kg Oscar David HYDROELECTRIC SYSTEMS TECHNICIAN-C Work Phone: [facility] 12-01-2024 11:36-0400 Diastolic blood pressure 80 mm[Hg] Oscar David HYDROELECTRIC SYSTEMS TECHNICIAN-C Work Phone: [facility] 12-01-2024 11:36-0400 Heart rate 79 /min Oscar David HYDROELECTRIC SYSTEMS TECHNICIAN-C Work Phone: [facility] 12-01-2024 11:36-0400 Respiratory rate 16 /min Oscar David HYDROELECTRIC SYSTEMS TECHNICIAN-C Work Phone: [facility] 12-01-2024 11:36-0400 SaO2% (BldA) [Mass fraction] 96 % Oscar David HYDROELECTRIC SYSTEMS TECHNICIAN-C Work Phone: [facility] 12-01-2024 11:36-0400 Systolic blood pressure 126 mm[Hg] Oscar David HYDROELECTRIC SYSTEMS TECHNICIAN-C Work Phone: [facility] 11-16-2024 13:38-0400 Body height 162.56 cm Ocsar David HYDROELECTRIC SYSTEMS TECHNICIAN-C Work Phone: [facility] 11-16-2024 13:38-0400 Body mass index (BMI) [Ratio] 34.7 kg/m2 Oscar David HYDROELECTRIC SYSTEMS TECHNICIAN-C Work Phone: [facility] 11-16-2024 13:38-0400 Body temperature 97 [degF] Oscar David HYDROELECTRIC SYSTEMS TECHNICIAN-C Work Phone: [facility] 11-16-2024 13:38-0400 Body weight 91.88 kg Oscar David HYDROELECTRIC SYSTEMS TECHNICIAN-C Work Phone: [facility] 11-16-2024 13:38-0400 Diastolic blood pressure 79 mm[Hg] Oscar David HYDROELECTRIC SYSTEMS TECHNICIAN-C Work Phone: [facility] 11-16-2024 13:38-0400 Heart rate 88 /min Oscar David HYDROELECTRIC SYSTEMS TECHNICIAN-C Work Phone: [facility] 11-16-2024 13:38-0400 Respiratory rate 18 /min Oscar David HYDROELECTRIC SYSTEMS TECHNICIAN-C Work Phone: [facility] 11-16-2024 13:38-0400 SaO2% (BldA) [Mass fraction] 97 % Oscar David HYDROELECTRIC SYSTEMS TECHNICIAN-C Work Phone: [facility] 11-16-2024 13:38-0400 Systolic blood pressure 121 mm[Hg] Oscar David HYDROELECTRIC SYSTEMS TECHNICIAN-C Work Phone: [facility] 11-04-2024 08:23-0400 Body mass index (BMI) [Ratio] 34.7 kg/m2 Oscar David HYDROELECTRIC SYSTEMS TECHNICIAN-C Work Phone: [facility] 11-04-2024 08:23-0400 Body temperature 97.3 [degF] Oscar David HYDROELECTRIC SYSTEMS TECHNICIAN-C Work Phone: [facility] 11-04-2024 08:23-0400 Body weight 91.62 kg Oscar David HYDROELECTRIC SYSTEMS TECHNICIAN-C Work Phone: [facility] 11-04-2024 08:23-0400 Diastolic blood pressure 77 mm[Hg] Oscar David HYDROELECTRIC SYSTEMS TECHNICIAN-C Work Phone: [facility] 11-04-2024 08:23-0400 Heart rate 76 /min Oscar David HYDROELECTRIC SYSTEMS TECHNICIAN-C Work Phone: [facility] 11-04-2024 08:23-0400 Respiratory rate 18 /min Oscar David HYDROELECTRIC SYSTEMS TECHNICIAN-C Work Phone: [facility] 11-04-2024 08:23-0400 SaO2% (BldA) [Mass fraction] 96 % Oscar David HYDROELECTRIC SYSTEMS TECHNICIAN-C Work Phone: [facility] 11-04-2024 08:23-0400 Systolic blood pressure 117 mm[Hg] Oscar David HYDROELECTRIC SYSTEMS TECHNICIAN-C Work Phone: [facility] 11-03-2024 14:13-0400 Body temperature 96.2 [degF] Oscar David HYDROELECTRIC SYSTEMS TECHNICIAN-C Work Phone: [facility] 11-03-2024 14:13-0400 Diastolic blood pressure 83 mm[Hg] Oscar David HYDROELECTRIC SYSTEMS TECHNICIAN-C Work Phone: [facility] 11-03-2024 14:13-0400 Heart rate 72 /min Oscar David HYDROELECTRIC SYSTEMS TECHNICIAN-C Work Phone: [facility] 11-03-2024 14:13-0400 Respiratory rate 16 /min Oscar David HYDROELECTRIC SYSTEMS TECHNICIAN-C Work Phone: [facility] 11-03-2024 14:13-0400 SaO2% (BldA) [Mass fraction] 95 % Oscar David HYDROELECTRIC SYSTEMS TECHNICIAN-C Work Phone: [facility] 11-03-2024 14:13-0400 Systolic blood pressure 119 mm[Hg] Oscar David HYDROELECTRIC SYSTEMS TECHNICIAN-C Work Phone: [facility] 11-03-2024 11:51-0400 Body height 162.56 cm Oscar David HYDROELECTRIC SYSTEMS TECHNICIAN-C Work Phone: [facility] 11-03-2024 11:51-0400 Body mass index (BMI) [Ratio] 34.5 kg/m2 Oscar David HYDROELECTRIC SYSTEMS TECHNICIAN-C Work Phone: [facility] 11-03-2024 11:51-0400 Body temperature 98 [degF] Oscar David HYDROELECTRIC SYSTEMS TECHNICIAN-C Work Phone: [facility] 11-03-2024 11:51-0400 Body weight 91.34 kg Oscar David HYDROELECTRIC SYSTEMS TECHNICIAN-C Work Phone: [facility] 11-03-2024 11:51-0400 Diastolic blood pressure 84 mm[Hg] Oscar David HYDROELECTRIC SYSTEMS TECHNICIAN-C Work Phone: [facility] 11-03-2024 11:51-0400 Heart rate 74 /min Oscar David HYDROELECTRIC SYSTEMS TECHNICIAN-C Work Phone: [facility] 11-03-2024 11:51-0400 Respiratory rate 18 /min Oscar David HYDROELECTRIC SYSTEMS TECHNICIAN-C Work Phone: [facility] 11-03-2024 11:51-0400 SaO2% (BldA) [Mass fraction] 98 % Oscar David HYDROELECTRIC SYSTEMS TECHNICIAN-C Work Phone: [facility] 11-03-2024 11:51-0400 Systolic blood pressure 140 mm[Hg] Oscar David HYDROELECTRIC SYSTEMS TECHNICIAN-C Work Phone: [facility] 10-06-2024 13:55-0400 Body temperature 97.7 [degF] Oscar David HYDROELECTRIC SYSTEMS TECHNICIAN-C Work Phone: [facility] 10-06-2024 13:55-0400 Diastolic blood pressure 56 mm[Hg] Oscar David HYDROELECTRIC SYSTEMS TECHNICIAN-C Work Phone: [facility] 10-06-2024 13:55-0400 Heart rate 78 /min Oscar David HYDROELECTRIC SYSTEMS TECHNICIAN-C Work Phone: [facility] 10-06-2024 13:55-0400 Respiratory rate 16 /min Oscar David HYDROELECTRIC SYSTEMS TECHNICIAN-C Work Phone: [facility] 10-06-2024 13:55-0400 SaO2% (BldA) [Mass fraction] 97 % Oscar David HYDROELECTRIC SYSTEMS TECHNICIAN-C Work Phone: [facility] 10-06-2024 13:55-0400 Systolic blood pressure 114 mm[Hg] Oscar David HYDROELECTRIC SYSTEMS TECHNICIAN-C Work Phone: [facility] 10-06-2024 11:50-0400 Body height 162.56 cm Oscar David HYDROELECTRIC SYSTEMS TECHNICIAN-C Work Phone: [facility] 10-06-2024 10:42-0400 Body mass index (BMI) [Ratio] 33.8 kg/m2 Oscar David HYDROELECTRIC SYSTEMS TECHNICIAN-C Work Phone: [facility] 10-06-2024 10:42-0400 Body weight 89.53 kg Oscar David HYDROELECTRIC SYSTEMS TECHNICIAN-C Work Phone: [facility] 09-08-2024 08:20-0400 Body mass index (BMI) [Ratio] 33.2 kg/m2 Oscar David HYDROELECTRIC SYSTEMS TECHNICIAN-C Work Phone: [facility] 09-08-2024 08:20-0400 Body temperature 96.9 [degF] Oscar David HYDROELECTRIC SYSTEMS TECHNICIAN-C Work Phone: [facility] 09-08-2024 08:20-0400 Body weight 87.79 kg Oscar David HYDROELECTRIC SYSTEMS TECHNICIAN-C Work Phone: [facility] 09-08-2024 08:20-0400 Diastolic blood pressure 82 mm[Hg] Oscar David HYDROELECTRIC SYSTEMS TECHNICIAN-C Work Phone: [facility] 09-08-2024 08:20-0400 Heart rate 70 /min Oscar David HYDROELECTRIC SYSTEMS TECHNICIAN-C Work Phone: [facility] 09-08-2024 08:20-0400 Respiratory rate 16 /min Oscar David HYDROELECTRIC SYSTEMS TECHNICIAN-C Work Phone: [facility] 09-08-2024 08:20-0400 SaO2% (BldA) [Mass fraction] 99 % Oscar David HYDROELECTRIC SYSTEMS TECHNICIAN-C Work Phone: [facility] 09-08-2024 08:20-0400 Systolic blood pressure 136 mm[Hg] Oscar David HYDROELECTRIC SYSTEMS TECHNICIAN-C Work Phone: [facility] 08-30-2024 15:35-0400 Body mass index (BMI) [Ratio] 32.9 kg/m2 Oscar David HYDROELECTRIC SYSTEMS TECHNICIAN-C Work Phone: [facility] 08-30-2024 15:35-0400 Body temperature 97.1 [degF] Oscar David HYDROELECTRIC SYSTEMS TECHNICIAN-C Work Phone: [facility] 08-30-2024 15:35-0400 Body weight 87.08 kg Oscar David HYDROELECTRIC SYSTEMS TECHNICIAN-C Work Phone: [facility] 08-30-2024 15:35-0400 Diastolic blood pressure 76 mm[Hg] Oscar David HYDROELECTRIC SYSTEMS TECHNICIAN-C Work Phone: [facility] 08-30-2024 15:35-0400 Heart rate 88 /min Oscar David HYDROELECTRIC SYSTEMS TECHNICIAN-C Work Phone: [facility] 08-30-2024 15:35-0400 Respiratory rate 16 /min Oscar David HYDROELECTRIC SYSTEMS TECHNICIAN-C Work Phone: [facility] 08-30-2024 15:35-0400 SaO2% (BldA) [Mass fraction] 97 % Oscar David HYDROELECTRIC SYSTEMS TECHNICIAN-C Work Phone: [facility] 08-30-2024 15:35-0400 Systolic blood pressure 117 mm[Hg] Oscar David HYDROELECTRIC SYSTEMS TECHNICIAN-C Work Phone: [facility] 08-25-2024 16:07-0400 Body mass index (BMI) [Ratio] 32.6 kg/m2 Oscar David HYDROELECTRIC SYSTEMS TECHNICIAN-C Work Phone: [facility] 08-25-2024 16:07-0400 Body temperature 97.9 [degF] Oscar David HYDROELECTRIC SYSTEMS TECHNICIAN-C Work Phone: [facility] 08-25-2024 16:07-0400 Body weight 86.23 kg Oscar David HYDROELECTRIC SYSTEMS TECHNICIAN-C Work Phone: [facility] 08-25-2024 16:07-0400 Diastolic blood pressure 72 mm[Hg] Oscar David HYDROELECTRIC SYSTEMS TECHNICIAN-C Work Phone: [facility] 08-25-2024 16:07-0400 Heart rate 63 /min Oscar David HYDROELECTRIC SYSTEMS TECHNICIAN-C Work Phone: [facility] 08-25-2024 16:07-0400 Respiratory rate 16 /min Oscar David HYDROELECTRIC SYSTEMS TECHNICIAN-C Work Phone: [facility] 08-25-2024 16:07-0400 SaO2% (BldA) [Mass fraction] 99 % Oscar David HYDROELECTRIC SYSTEMS TECHNICIAN-C Work Phone: [facility] 08-25-2024 16:07-0400 Systolic blood pressure 108 mm[Hg] Oscar David HYDROELECTRIC SYSTEMS TECHNICIAN-C Work Phone: [facility] 08-25-2024 08:50-0400 Body mass index (BMI) [Ratio] 32.8 kg/m2 Oscar David HYDROELECTRIC SYSTEMS TECHNICIAN-C Work Phone: [facility] 08-25-2024 08:50-0400 Body temperature 97.5 [degF] Oscar David HYDROELECTRIC SYSTEMS TECHNICIAN-C Work Phone: [facility] 08-25-2024 08:50-0400 Body weight 86.69 kg Oscar David HYDROELECTRIC SYSTEMS TECHNICIAN-C Work Phone: [facility] 08-25-2024 08:50-0400 Diastolic blood pressure 78 mm[Hg] Oscar David HYDROELECTRIC SYSTEMS TECHNICIAN-C Work Phone: [facility] 08-25-2024 08:50-0400 Heart rate 63 /min Oscar David HYDROELECTRIC SYSTEMS TECHNICIAN-C Work Phone: [facility] 08-25-2024 08:50-0400 Respiratory rate 18 /min Oscar David HYDROELECTRIC SYSTEMS TECHNICIAN-C Work Phone: [facility] 08-25-2024 08:50-0400 SaO2% (BldA) [Mass fraction] 97 % Oscar David HYDROELECTRIC SYSTEMS TECHNICIAN-C Work Phone: [facility] 08-25-2024 08:50-0400 Systolic blood pressure 118 mm[Hg] Oscardavy Mott HYDROELECTRIC SYSTEMS TECHNICIAN-C Work Phone: [facility] 08-18-2024 14:50-0400 Body height 162.56 cm Oscardavy Mott HYDROELECTRIC SYSTEMS TECHNICIAN-C Work Phone: [facility] 08-18-2024 14:50-0400 Body mass index (BMI) [Ratio] 32.4 kg/m2 Oscardavy Mott HYDROELECTRIC SYSTEMS TECHNICIAN-C Work Phone: [facility] 08-18-2024 14:50-0400 Body temperature 98.2 [degF] Oscardavy Mott HYDROELECTRIC SYSTEMS TECHNICIAN-C Work Phone: [facility] 08-18-2024 14:50-0400 Body weight 85.78 kg Oscardavy Mott HYDROELECTRIC SYSTEMS TECHNICIAN-C Work Phone: [facility] 08-18-2024 14:50-0400 Diastolic blood pressure 77 mm[Hg] Oscar Mott HYDROELECTRIC SYSTEMS TECHNICIAN-C Work Phone: [facility] 08-18-2024 14:50-0400 Heart rate 87 /min Oscardavy Mott HYDROELECTRIC SYSTEMS TECHNICIAN-C Work Phone: [facility] 08-18-2024 14:50-0400 Respiratory rate 16 /min Oscar Mott HYDROELECTRIC SYSTEMS TECHNICIAN-C Work Phone: [facility] 08-18-2024 14:50-0400 SaO2% (BldA) [Mass fraction] 97 % Oscar Mott HYDROELECTRIC SYSTEMS TECHNICIAN-C Work Phone: [facility] 08-18-2024 14:50-0400 Systolic blood pressure 122 mm[Hg] Oscar David HYDROELECTRIC SYSTEMS TECHNICIAN-C Work Phone: [facility] 08-13-2024 12:01-0400 Body mass index (BMI) [Ratio] 32.8 kg/m2 Oscardavy Mott HYDROELECTRIC SYSTEMS TECHNICIAN-C Work Phone: [facility] 08-13-2024 12:01-0400 Body temperature 97.4 [degF] Oscar David HYDROELECTRIC SYSTEMS TECHNICIAN-C Work Phone: [facility] 08-13-2024 12:01-0400 Body weight 86.63 kg Oscar David HYDROELECTRIC SYSTEMS TECHNICIAN-C Work Phone: [facility] 08-13-2024 12:01-0400 Diastolic blood pressure 78 mm[Hg] Oscar David HYDROELECTRIC SYSTEMS TECHNICIAN-C Work Phone: [facility] 08-13-2024 12:01-0400 Heart rate 72 /min Oscar David HYDROELECTRIC SYSTEMS TECHNICIAN-C Work Phone: [facility] 08-13-2024 12:01-0400 Respiratory rate 18 /min Oscar David HYDROELECTRIC SYSTEMS TECHNICIAN-C Work Phone: [facility] 08-13-2024 12:01-0400 SaO2% (BldA) [Mass fraction] 99 % Oscar David HYDROELECTRIC SYSTEMS TECHNICIAN-C Work Phone: [facility] 08-13-2024 12:01-0400 Systolic blood pressure 117 mm[Hg] Oscar David HYDROELECTRIC SYSTEMS TECHNICIAN-C Work Phone: [facility] 08-12-2024 09:53-0400 Body mass index (BMI) [Ratio] 32.6 kg/m2 Oscar David HYDROELECTRIC SYSTEMS TECHNICIAN-C Work Phone: [facility] 08-12-2024 09:53-0400 Body temperature 97.9 [degF] Oscar David HYDROELECTRIC SYSTEMS TECHNICIAN-C Work Phone: [facility] 08-12-2024 09:53-0400 Body weight 86.29 kg Oscar David HYDROELECTRIC SYSTEMS TECHNICIAN-C Work Phone: [facility] 08-12-2024 09:53-0400 Diastolic blood pressure 76 mm[Hg] Oscar David HYDROELECTRIC SYSTEMS TECHNICIAN-C Work Phone: [facility] 08-12-2024 09:53-0400 Heart rate 102 /min Oscar David HYDROELECTRIC SYSTEMS TECHNICIAN-C Work Phone: [facility] 08-12-2024 09:53-0400 Respiratory rate 18 /min Oscardavy Mott HYDROELECTRIC SYSTEMS TECHNICIAN-C Work Phone: [facility] 08-12-2024 09:53-0400 SaO2% (BldA) [Mass fraction] 99 % Oscardavy Mott HYDROELECTRIC SYSTEMS TECHNICIAN-C Work Phone: [facility] 08-12-2024 09:53-0400 Systolic blood pressure 114 mm[Hg] Oscar David HYDROELECTRIC SYSTEMS TECHNICIAN-C Work Phone: [facility] 08-09-2024 13:20-0400 Body mass index (BMI) [Ratio] 32.5 kg/m2 Oscar David HYDROELECTRIC SYSTEMS TECHNICIAN-C Work Phone: [facility] 08-09-2024 13:20-0400 Body temperature 97.5 [degF] Oscar David HYDROELECTRIC SYSTEMS TECHNICIAN-C Work Phone: [facility] 08-09-2024 13:20-0400 Body weight 85.95 kg Oscardavy Mott HYDROELECTRIC SYSTEMS TECHNICIAN-C Work Phone: [facility] 08-09-2024 13:20-0400 Diastolic blood pressure 82 mm[Hg] Oscardavy Mott HYDROELECTRIC SYSTEMS TECHNICIAN-C Work Phone: [facility] 08-09-2024 13:20-0400 Heart rate 102 /min Oscar David HYDROELECTRIC SYSTEMS TECHNICIAN-C Work Phone: [facility] 08-09-2024 13:20-0400 Respiratory rate 18 /min Oscar David HYDROELECTRIC SYSTEMS TECHNICIAN-C Work Phone: [facility] 08-09-2024 13:20-0400 SaO2% (BldA) [Mass fraction] 96 % Oscardavy Mott HYDROELECTRIC SYSTEMS TECHNICIAN-C Work Phone: [facility] 08-09-2024 13:20-0400 Systolic blood pressure 135 mm[Hg] Oscar David HYDROELECTRIC SYSTEMS TECHNICIAN-C Work Phone: [facility] 08-02-2024 14:07-0500 Body mass index (BMI) [Ratio] 31.6 kg/m2 Oscar David HYDROELECTRIC SYSTEMS TECHNICIAN-C Work Phone: [facility] 08-02-2024 14:07-0500 Body temperature 97.5 [degF] Oscar David HYDROELECTRIC SYSTEMS TECHNICIAN-C Work Phone: [facility] 08-02-2024 14:07-0500 Body weight 83.71 kg Oscar David HYDROELECTRIC SYSTEMS TECHNICIAN-C Work Phone: [facility] 08-02-2024 14:07-0500 Diastolic blood pressure 83 mm[Hg] Oscar David HYDROELECTRIC SYSTEMS TECHNICIAN-C Work Phone: [facility] 08-02-2024 14:07-0500 Heart rate 101 /min Oscar David HYDROELECTRIC SYSTEMS TECHNICIAN-C Work Phone: [facility] 08-02-2024 14:07-0500 Respiratory rate 18 /min Oscar David HYDROELECTRIC SYSTEMS TECHNICIAN-C Work Phone: [facility] 08-02-2024 14:07-0500 SaO2% (BldA) [Mass fraction] 97 % Oscar David HYDROELECTRIC SYSTEMS TECHNICIAN-C Work Phone: [facility] 08-02-2024 14:07-0500 Systolic blood pressure 116 mm[Hg] Oscar David HYDROELECTRIC SYSTEMS TECHNICIAN-C Work Phone: [facility] 07-29-2024 15:29-0500 Body temperature 96.4 [degF] Oscar David HYDROELECTRIC SYSTEMS TECHNICIAN-C Work Phone: [facility] 07-29-2024 15:29-0500 Diastolic blood pressure 66 mm[Hg] Oscar David HYDROELECTRIC SYSTEMS TECHNICIAN-C Work Phone: [facility] 07-29-2024 15:29-0500 Heart rate 81 /min Oscar David HYDROELECTRIC SYSTEMS TECHNICIAN-C Work Phone: [facility] 07-29-2024 15:29-0500 Respiratory rate 16 /min Oscar David HYDROELECTRIC SYSTEMS TECHNICIAN-C Work Phone: [facility] 07-29-2024 15:29-0500 SaO2% (BldA) [Mass fraction] 99 % Oscar David HYDROELECTRIC SYSTEMS TECHNICIAN-C Work Phone: [facility] 07-29-2024 15:29-0500 Systolic blood pressure 111 mm[Hg] Oscar David HYDROELECTRIC SYSTEMS TECHNICIAN-C Work Phone: [facility] 07-26-2024 08:09-0500 Body mass index (BMI) [Ratio] 32.6 kg/m2 Oscar David HYDROELECTRIC SYSTEMS TECHNICIAN-C Work Phone: [facility] 07-26-2024 08:09-0500 Body temperature 98.5 [degF] Oscar David HYDROELECTRIC SYSTEMS TECHNICIAN-C Work Phone: [facility] 07-26-2024 08:09-0500 Body weight 86.21 kg Oscar David HYDROELECTRIC SYSTEMS TECHNICIAN-C Work Phone: [facility] 07-26-2024 08:09-0500 Diastolic blood pressure 73 mm[Hg] Oscar David HYDROELECTRIC SYSTEMS TECHNICIAN-C Work Phone: [facility] 07-26-2024 08:09-0500 Heart rate 93 /min Oscar David HYDROELECTRIC SYSTEMS TECHNICIAN-C Work Phone: [facility] 07-26-2024 08:09-0500 Respiratory rate 18 /min Oscar David HYDROELECTRIC SYSTEMS TECHNICIAN-C Work Phone: [facility] 07-26-2024 08:09-0500 SaO2% (BldA) [Mass fraction] 100 % Oscar David HYDROELECTRIC SYSTEMS TECHNICIAN-C Work Phone: [facility] 07-26-2024 08:09-0500 Systolic blood pressure 111 mm[Hg] Oscar David HYDROELECTRIC SYSTEMS TECHNICIAN-C Work Phone: [facility] 07-20-2024 10:58-0500 Body mass index (BMI) [Ratio] 31.4 kg/m2 Oscar David HYDROELECTRIC SYSTEMS TECHNICIAN-C Work Phone: [facility] 07-20-2024 10:58-0500 Body temperature 97.1 [degF] Oscar David HYDROELECTRIC SYSTEMS TECHNICIAN-C Work Phone: [facility] 07-20-2024 10:58-0500 Body weight 83.23 kg Oscar David HYDROELECTRIC SYSTEMS TECHNICIAN-C Work Phone: [facility] 07-20-2024 10:58-0500 Diastolic blood pressure 72 mm[Hg] Oscar David HYDROELECTRIC SYSTEMS TECHNICIAN-C Work Phone: [facility] 07-20-2024 10:58-0500 Heart rate 95 /min Oscar David HYDROELECTRIC SYSTEMS TECHNICIAN-C Work Phone: [facility] 07-20-2024 10:58-0500 Respiratory rate 16 /min Oscar David HYDROELECTRIC SYSTEMS TECHNICIAN-C Work Phone: [facility] 07-20-2024 10:58-0500 SaO2% (BldA) [Mass fraction] 97 % Oscar David HYDROELECTRIC SYSTEMS TECHNICIAN-C Work Phone: [facility] 07-20-2024 10:58-0500 Systolic blood pressure 107 mm[Hg] Oscar David HYDROELECTRIC SYSTEMS TECHNICIAN-C Work Phone: [facility] 07-13-2024 10:07-0500 Body mass index (BMI) [Ratio] 32 kg/m2 Oscar David HYDROELECTRIC SYSTEMS TECHNICIAN-C Work Phone: [facility] 07-13-2024 10:07-0500 Body temperature 97.3 [degF] Oscar David HYDROELECTRIC SYSTEMS TECHNICIAN-C Work Phone: [facility] 07-13-2024 10:07-0500 Body weight 84.56 kg Oscar David HYDROELECTRIC SYSTEMS TECHNICIAN-C Work Phone: [facility] 07-13-2024 10:07-0500 Diastolic blood pressure 75 mm[Hg] Oscar David HYDROELECTRIC SYSTEMS TECHNICIAN-C Work Phone: [facility] 07-13-2024 10:07-0500 Heart rate 115 /min Oscar David HYDROELECTRIC SYSTEMS TECHNICIAN-C Work Phone: [facility] 07-13-2024 10:07-0500 Respiratory rate 18 /min Oscar David HYDROELECTRIC SYSTEMS TECHNICIAN-C Work Phone: [facility] 07-13-2024 10:07-0500 SaO2% (BldA) [Mass fraction] 98 % Oscar David HYDROELECTRIC SYSTEMS TECHNICIAN-C Work Phone: [facility] 07-13-2024 10:07-0500 Systolic blood pressure 105 mm[Hg] Oscar David HYDROELECTRIC SYSTEMS TECHNICIAN-C Work Phone: [facility] 07-12-2024 09:58-0500 Body mass index (BMI) [Ratio] 32.6 kg/m2 Oscar David HYDROELECTRIC SYSTEMS TECHNICIAN-C Work Phone: [facility] 07-12-2024 09:58-0500 Body temperature 96.7 [degF] Oscar David HYDROELECTRIC SYSTEMS TECHNICIAN-C Work Phone: [facility] 07-12-2024 09:58-0500 Body weight 86.21 kg Oscar David HYDROELECTRIC SYSTEMS TECHNICIAN-C Work Phone: [facility] 07-12-2024 09:58-0500 Diastolic blood pressure 78 mm[Hg] Oscar David HYDROELECTRIC SYSTEMS TECHNICIAN-C Work Phone: [facility] 07-12-2024 09:58-0500 Heart rate 94 /min Oscar David HYDROELECTRIC SYSTEMS TECHNICIAN-C Work Phone: [facility] 07-12-2024 09:58-0500 Respiratory rate 16 /min Oscar David HYDROELECTRIC SYSTEMS TECHNICIAN-C Work Phone: [facility] 07-12-2024 09:58-0500 SaO2% (BldA) [Mass fraction] 96 % Oscar David HYDROELECTRIC SYSTEMS TECHNICIAN-C Work Phone: [facility] 07-12-2024 09:58-0500 Systolic blood pressure 115 mm[Hg] Oscar David HYDROELECTRIC SYSTEMS TECHNICIAN-C Work Phone: [facility] 07-06-2024 08:16-0500 Body mass index (BMI) [Ratio] 32.6 kg/m2 Oscar David HYDROELECTRIC SYSTEMS TECHNICIAN-C Work Phone: [facility] 07-06-2024 08:16-0500 Body temperature 97 [degF] Oscar David HYDROELECTRIC SYSTEMS TECHNICIAN-C Work Phone: [facility] 07-06-2024 08:16-0500 Body weight 86.35 kg Oscar David HYDROELECTRIC SYSTEMS TECHNICIAN-C Work Phone: [facility] 07-06-2024 08:16-0500 Diastolic blood pressure 77 mm[Hg] Oscar David HYDROELECTRIC SYSTEMS TECHNICIAN-C Work Phone: [facility] 07-06-2024 08:16-0500 Heart rate 75 /min Oscar David HYDROELECTRIC SYSTEMS TECHNICIAN-C Work Phone: [facility] 07-06-2024 08:16-0500 Respiratory rate 18 /min Oscar David HYDROELECTRIC SYSTEMS TECHNICIAN-C Work Phone: [facility] 07-06-2024 08:16-0500 SaO2% (BldA) [Mass fraction] 100 % Oscar David HYDROELECTRIC SYSTEMS TECHNICIAN-C Work Phone: [facility] 07-06-2024 08:16-0500 Systolic blood pressure 119 mm[Hg] Oscar David HYDROELECTRIC SYSTEMS TECHNICIAN-C Work Phone: [facility] 07-05-2024 14:00-0500 Body temperature 97.9 [degF] Oscar David HYDROELECTRIC SYSTEMS TECHNICIAN-C Work Phone: [facility] 07-05-2024 14:00-0500 Diastolic blood pressure 76 mm[Hg] Oscar David HYDROELECTRIC SYSTEMS TECHNICIAN-C Work Phone: [facility] 07-05-2024 14:00-0500 Heart rate 97 /min Oscar David HYDROELECTRIC SYSTEMS TECHNICIAN-C Work Phone: [facility] 07-05-2024 14:00-0500 Respiratory rate 18 /min Oscar David HYDROELECTRIC SYSTEMS TECHNICIAN-C Work Phone: [facility] 07-05-2024 14:00-0500 SaO2% (BldA) [Mass fraction] 97 % Oscar Mott HYDROELECTRIC SYSTEMS TECHNICIAN-C Work Phone: [facility] 07-05-2024 14:00-0500 Systolic blood pressure 97 mm[Hg] Oscardavy Mott HYDROELECTRIC SYSTEMS TECHNICIAN-C Work Phone: [facility] 07-05-2024 03:49-0500 Body mass index (BMI) [Ratio] 33 kg/m2 Oscardavy Mott HYDROELECTRIC SYSTEMS TECHNICIAN-C Work Phone: [facility] 07-05-2024 03:49-0500 Body weight 87.8 kg Oscar David HYDROELECTRIC SYSTEMS TECHNICIAN-C Work Phone: [facility] 07-04-2024 22:35-0500 Inhaled oxygen concentration 21 % Oscar David HYDROELECTRIC SYSTEMS TECHNICIAN-C Work Phone: [facility] 06-28-2024 13:07-0500 Body mass index (BMI) [Ratio] 31.5 kg/m2 Oscar Mott HYDROELECTRIC SYSTEMS TECHNICIAN-C Work Phone: [facility] 06-28-2024 13:07-0500 Body temperature 97.8 [degF] Oscar Mott HYDROELECTRIC SYSTEMS TECHNICIAN-C Work Phone: [facility] 06-28-2024 13:07-0500 Body weight 85.89 kg Oscar Mott HYDROELECTRIC SYSTEMS TECHNICIAN-C Work Phone: [facility] 06-28-2024 13:07-0500 Diastolic blood pressure 86 mm[Hg] Oscar Mott HYDROELECTRIC SYSTEMS TECHNICIAN-C Work Phone: [facility] 06-28-2024 13:07-0500 Heart rate 104 /min Oscar David HYDROELECTRIC SYSTEMS TECHNICIAN-C Work Phone: [facility] 06-28-2024 13:07-0500 Respiratory rate 18 /min Oscar Mott HYDROELECTRIC SYSTEMS TECHNICIAN-C Work Phone: [facility] 06-28-2024 13:07-0500 SaO2% (BldA) [Mass fraction] 99 % Oscar David HYDROELECTRIC SYSTEMS TECHNICIAN-C Work Phone: [facility] 06-28-2024 13:07-0500 Systolic blood pressure 128 mm[Hg] Oscar David HYDROELECTRIC SYSTEMS TECHNICIAN-C Work Phone: [facility] 06-14-2024 08:05-0500 Body mass index (BMI) [Ratio] 33.1 kg/m2 Oscar David HYDROELECTRIC SYSTEMS TECHNICIAN-C Work Phone: [facility] 06-14-2024 08:05-0500 Body temperature 96.9 [degF] Oscar David HYDROELECTRIC SYSTEMS TECHNICIAN-C Work Phone: [facility] 06-14-2024 08:05-0500 Body weight 90.26 kg Oscar David HYDROELECTRIC SYSTEMS TECHNICIAN-C Work Phone: [facility] 06-14-2024 08:05-0500 Diastolic blood pressure 72 mm[Hg] Oscar David HYDROELECTRIC SYSTEMS TECHNICIAN-C Work Phone: [facility] 06-14-2024 08:05-0500 Heart rate 98 /min Oscar David HYDROELECTRIC SYSTEMS TECHNICIAN-C Work Phone: [facility] 06-14-2024 08:05-0500 Respiratory rate 16 /min Oscar David HYDROELECTRIC SYSTEMS TECHNICIAN-C Work Phone: [facility] 06-14-2024 08:05-0500 SaO2% (BldA) [Mass fraction] 98 % Oscar David HYDROELECTRIC SYSTEMS TECHNICIAN-C Work Phone: [facility] 06-14-2024 08:05-0500 Systolic blood pressure 103 mm[Hg] Oscar David HYDROELECTRIC SYSTEMS TECHNICIAN-C Work Phone: [facility] 06-10-2024 14:40-0500 Body mass index (BMI) [Ratio] 33.5 kg/m2 Oscar David HYDROELECTRIC SYSTEMS TECHNICIAN-C Work Phone: [facility] 06-10-2024 14:40-0500 Body temperature 97.3 [degF] Oscar David HYDROELECTRIC SYSTEMS TECHNICIAN-C Work Phone: [facility] 06-10-2024 14:40-0500 Body weight 91.34 kg Oscar David HYDROELECTRIC SYSTEMS TECHNICIAN-C Work Phone: [facility] 06-10-2024 14:40-0500 Diastolic blood pressure 81 mm[Hg] Oscar David HYDROELECTRIC SYSTEMS TECHNICIAN-C Work Phone: [facility] 06-10-2024 14:40-0500 Heart rate 93 /min Oscar David HYDROELECTRIC SYSTEMS TECHNICIAN-C Work Phone: [facility] 06-10-2024 14:40-0500 Respiratory rate 18 /min Oscar David HYDROELECTRIC SYSTEMS TECHNICIAN-C Work Phone: [facility] 06-10-2024 14:40-0500 SaO2% (BldA) [Mass fraction] 98 % Oscar David HYDROELECTRIC SYSTEMS TECHNICIAN-C Work Phone: [facility] 06-10-2024 14:40-0500 Systolic blood pressure 138 mm[Hg] Oscar David HYDROELECTRIC SYSTEMS TECHNICIAN-C Work Phone: [facility] 06-08-2024 08:21-0500 Body mass index (BMI) [Ratio] 33.5 kg/m2 Oscar David HYDROELECTRIC SYSTEMS TECHNICIAN-C Work Phone: [facility] 06-08-2024 08:21-0500 Body temperature 97.5 [degF] Oscar David HYDROELECTRIC SYSTEMS TECHNICIAN-C Work Phone: [facility] 06-08-2024 08:21-0500 Body weight 91.34 kg Oscardavy Mott HYDROELECTRIC SYSTEMS TECHNICIAN-C Work Phone: [facility] 06-08-2024 08:21-0500 Diastolic blood pressure 72 mm[Hg] Oscar David HYDROELECTRIC SYSTEMS TECHNICIAN-C Work Phone: [facility] 06-08-2024 08:21-0500 Heart rate 78 /min Oscar David HYDROELECTRIC SYSTEMS TECHNICIAN-C Work Phone: [facility] 06-08-2024 08:21-0500 Respiratory rate 18 /min Oscar David HYDROELECTRIC SYSTEMS TECHNICIAN-C Work Phone: [facility] 06-08-2024 08:21-0500 SaO2% (BldA) [Mass fraction] 99 % Oscar David HYDROELECTRIC SYSTEMS TECHNICIAN-C Work Phone: [facility] 06-08-2024 08:21-0500 Systolic blood pressure 103 mm[Hg] Oscar David HYDROELECTRIC SYSTEMS TECHNICIAN-C Work Phone: [facility] 06-03-2024 08:43-0500 Body mass index (BMI) [Ratio] 33.5 kg/m2 Oscar David HYDROELECTRIC SYSTEMS TECHNICIAN-C Work Phone: [facility] 06-03-2024 08:43-0500 Body temperature 96 [degF] Oscar David HYDROELECTRIC SYSTEMS TECHNICIAN-C Work Phone: [facility] 06-03-2024 08:43-0500 Body weight 91.31 kg Oscar David HYDROELECTRIC SYSTEMS TECHNICIAN-C Work Phone: [facility] 06-03-2024 08:43-0500 Diastolic blood pressure 69 mm[Hg] Oscar David HYDROELECTRIC SYSTEMS TECHNICIAN-C Work Phone: [facility] 06-03-2024 08:43-0500 Heart rate 79 /min Oscar David HYDROELECTRIC SYSTEMS TECHNICIAN-C Work Phone: [facility] 06-03-2024 08:43-0500 Respiratory rate 18 /min Oscar David HYDROELECTRIC SYSTEMS TECHNICIAN-C Work Phone: [facility] 06-03-2024 08:43-0500 SaO2% (BldA) [Mass fraction] 99 % Oscar David HYDROELECTRIC SYSTEMS TECHNICIAN-C Work Phone: [facility] 06-03-2024 08:43-0500 Systolic blood pressure 113 mm[Hg] Oscar David HYDROELECTRIC SYSTEMS TECHNICIAN-C Work Phone: [facility] 06-01-2024 13:53-0500 Body temperature 97.8 [degF] Oscar David HYDROELECTRIC SYSTEMS TECHNICIAN-C Work Phone: [facility] 06-01-2024 13:53-0500 Diastolic blood pressure 67 mm[Hg] Oscar Valeragar HYDROELECTRIC SYSTEMS TECHNICIAN-C Work Phone: [facility] 06-01-2024 13:53-0500 Heart rate 79 /min Oscar David HYDROELECTRIC SYSTEMS TECHNICIAN-C Work Phone: [facility] 06-01-2024 13:53-0500 Respiratory rate 21 /min Ocsar David HYDROELECTRIC SYSTEMS TECHNICIAN-C Work Phone: [facility] 06-01-2024 13:53-0500 SaO2% (BldA) [Mass fraction] 95 % Oscar David HYDROELECTRIC SYSTEMS TECHNICIAN-C Work Phone: [facility] 06-01-2024 13:53-0500 Systolic blood pressure 97 mm[Hg] Oscar Valeragar HYDROELECTRIC SYSTEMS TECHNICIAN-C Work Phone: [facility] 06-01-2024 07:45-0500 Inhaled oxygen concentration 21 % Oscar David HYDROELECTRIC SYSTEMS TECHNICIAN-C Work Phone: [facility] 06-01-2024 05:34-0500 Body mass index (BMI) [Ratio] 34.6 kg/m2 Oscar Valeragar HYDROELECTRIC SYSTEMS TECHNICIAN-C Work Phone: [facility] 06-01-2024 05:34-0500 Body weight 94.3 kg Oscar Valeragar HYDROELECTRIC SYSTEMS TECHNICIAN-C Work Phone: [facility] 05-31-2024 13:08-0500 Inhaled oxygen flow rate 2 L/min Oscar Valeragar HYDROELECTRIC SYSTEMS TECHNICIAN-C Work Phone: [facility] 05-24-2024 14:46-0500 Body mass index (BMI) [Ratio] 33.4 kg/m2 Oscar David HYDROELECTRIC SYSTEMS TECHNICIAN-C Work Phone: [facility] 05-24-2024 14:46-0500 Body temperature 97.2 [degF] Oscar Valeragar HYDROELECTRIC SYSTEMS TECHNICIAN-C Work Phone: [facility] 05-24-2024 14:46-0500 Body weight 93.92 kg Oscar David HYDROELECTRIC SYSTEMS TECHNICIAN-C Work Phone: [facility] 05-24-2024 14:46-0500 Diastolic blood pressure 81 mm[Hg] Oscar David HYDROELECTRIC SYSTEMS TECHNICIAN-C Work Phone: [facility] 05-24-2024 14:46-0500 Heart rate 83 /min Oscar David HYDROELECTRIC SYSTEMS TECHNICIAN-C Work Phone: [facility] 05-24-2024 14:46-0500 Respiratory rate 18 /min Oscar David HYDROELECTRIC SYSTEMS TECHNICIAN-C Work Phone: [facility] 05-24-2024 14:46-0500 SaO2% (BldA) [Mass fraction] 99 % Oscar David HYDROELECTRIC SYSTEMS TECHNICIAN-C Work Phone: [facility] 05-24-2024 14:46-0500 Systolic blood pressure 130 mm[Hg] Oscar David HYDROELECTRIC SYSTEMS TECHNICIAN-C Work Phone: [facility] 05-21-2024 08:37-0500 Body mass index (BMI) [Ratio] 34.4 kg/m2 Oscar David HYDROELECTRIC SYSTEMS TECHNICIAN-C Work Phone: [facility] 05-21-2024 08:37-0500 Body temperature 97.2 [degF] Oscar David HYDROELECTRIC SYSTEMS TECHNICIAN-C Work Phone: [facility] 05-21-2024 08:37-0500 Body weight 96.7 kg Oscar David HYDROELECTRIC SYSTEMS TECHNICIAN-C Work Phone: [facility] 05-21-2024 08:37-0500 Diastolic blood pressure 79 mm[Hg] Oscar David HYDROELECTRIC SYSTEMS TECHNICIAN-C Work Phone: [facility] 05-21-2024 08:37-0500 Heart rate 81 /min Oscar David HYDROELECTRIC SYSTEMS TECHNICIAN-C Work Phone: [facility] 05-21-2024 08:37-0500 Respiratory rate 18 /min Oscar David HYDROELECTRIC SYSTEMS TECHNICIAN-C Work Phone: [facility] 05-21-2024 08:37-0500 SaO2% (BldA) [Mass fraction] 93 % Oscar David HYDROELECTRIC SYSTEMS TECHNICIAN-C Work Phone: [facility] 05-21-2024 08:37-0500 Systolic blood pressure 114 mm[Hg] Oscar David HYDROELECTRIC SYSTEMS TECHNICIAN-C Work Phone: [facility] 05-18-2024 08:38-0500 Body mass index (BMI) [Ratio] 35.1 kg/m2 Oscar David HYDROELECTRIC SYSTEMS TECHNICIAN-C Work Phone: [facility] 05-18-2024 08:38-0500 Body temperature 98.3 [degF] Oscar David HYDROELECTRIC SYSTEMS TECHNICIAN-C Work Phone: [facility] 05-18-2024 08:38-0500 Body weight 98.68 kg Oscar David HYDROELECTRIC SYSTEMS TECHNICIAN-C Work Phone: [facility] 05-18-2024 08:38-0500 Diastolic blood pressure 77 mm[Hg] Oscar David HYDROELECTRIC SYSTEMS TECHNICIAN-C Work Phone: [facility] 05-18-2024 08:38-0500 Heart rate 84 /min Oscar David HYDROELECTRIC SYSTEMS TECHNICIAN-C Work Phone: [facility] 05-18-2024 08:38-0500 Respiratory rate 16 /min Oscar David HYDROELECTRIC SYSTEMS TECHNICIAN-C Work Phone: [facility] 05-18-2024 08:38-0500 SaO2% (BldA) [Mass fraction] 98 % Oscar David HYDROELECTRIC SYSTEMS TECHNICIAN-C Work Phone: [facility] 05-18-2024 08:38-0500 Systolic blood pressure 118 mm[Hg] Oscar David HYDROELECTRIC SYSTEMS TECHNICIAN-C Work Phone: [facility] 05-17-2024 08:03-0500 Body mass index (BMI) [Ratio] 34.7 kg/m2 Oscar David HYDROELECTRIC SYSTEMS TECHNICIAN-C Work Phone: [facility] 05-17-2024 08:03-0500 Body temperature 97.9 [degF] Oscar David HYDROELECTRIC SYSTEMS TECHNICIAN-C Work Phone: [facility] 05-17-2024 08:03-0500 Body weight 97.77 kg Oscar David HYDROELECTRIC SYSTEMS TECHNICIAN-C Work Phone: [facility] 05-17-2024 08:03-0500 Diastolic blood pressure 80 mm[Hg] Oscar David HYDROELECTRIC SYSTEMS TECHNICIAN-C Work Phone: [facility] 05-17-2024 08:03-0500 Heart rate 62 /min Oscar David HYDROELECTRIC SYSTEMS TECHNICIAN-C Work Phone: [facility] 05-17-2024 08:03-0500 Respiratory rate 18 /min Oscar David HYDROELECTRIC SYSTEMS TECHNICIAN-C Work Phone: [facility] 05-17-2024 08:03-0500 SaO2% (BldA) [Mass fraction] 97 % Oscar David HYDROELECTRIC SYSTEMS TECHNICIAN-C Work Phone: [facility] 05-17-2024 08:03-0500 Systolic blood pressure 120 mm[Hg] Oscar David HYDROELECTRIC SYSTEMS TECHNICIAN-C Work Phone: [facility] 05-13-2024 12:45-0500 Body temperature 97.6 [degF] Oscar David HYDROELECTRIC SYSTEMS TECHNICIAN-C Work Phone: [facility] 05-13-2024 12:45-0500 Diastolic blood pressure 86 mm[Hg] Oscar David HYDROELECTRIC SYSTEMS TECHNICIAN-C Work Phone: [facility] 05-13-2024 12:45-0500 Heart rate 60 /min Oscar David HYDROELECTRIC SYSTEMS TECHNICIAN-C Work Phone: [facility] 05-13-2024 12:45-0500 Respiratory rate 18 /min Oscar David HYDROELECTRIC SYSTEMS TECHNICIAN-C Work Phone: [facility] 05-13-2024 12:45-0500 SaO2% (BldA) [Mass fraction] 100 % Oscar David HYDROELECTRIC SYSTEMS TECHNICIAN-C Work Phone: [facility] 05-13-2024 12:45-0500 Systolic blood pressure 140 mm[Hg] Oscar David HYDROELECTRIC SYSTEMS TECHNICIAN-C Work Phone: [facility] 05-13-2024 10:12-0500 Body mass index (BMI) [Ratio] 35.2 kg/m2 Oscar David HYDROELECTRIC SYSTEMS TECHNICIAN-C Work Phone: [facility] 05-13-2024 10:12-0500 Body weight 99 kg Oscar David HYDROELECTRIC SYSTEMS TECHNICIAN-C Work Phone: [facility] 05-11-2024 13:37-0500 Body mass index (BMI) [Ratio] 36 kg/m2 Oscar David HYDROELECTRIC SYSTEMS TECHNICIAN-C Work Phone: [facility] 05-11-2024 13:37-0500 Body temperature 96.9 [degF] Oscar David HYDROELECTRIC SYSTEMS TECHNICIAN-C Work Phone: [facility] 05-11-2024 13:37-0500 Body weight 98.14 kg Oscar David HYDROELECTRIC SYSTEMS TECHNICIAN-C Work Phone: [facility] 05-11-2024 13:37-0500 Diastolic blood pressure 84 mm[Hg] Oscar David HYDROELECTRIC SYSTEMS TECHNICIAN-C Work Phone: [facility] 05-11-2024 13:37-0500 Heart rate 76 /min Oscar David HYDROELECTRIC SYSTEMS TECHNICIAN-C Work Phone: [facility] 05-11-2024 13:37-0500 Respiratory rate 18 /min Oscar David HYDROELECTRIC SYSTEMS TECHNICIAN-C Work Phone: [facility] 05-11-2024 13:37-0500 SaO2% (BldA) [Mass fraction] 94 % Oscar David HYDROELECTRIC SYSTEMS TECHNICIAN-C Work Phone: [facility] 05-11-2024 13:37-0500 Systolic blood pressure 127 mm[Hg] Oscar David HYDROELECTRIC SYSTEMS TECHNICIAN-C Work Phone: [facility] 05-07-2024 13:12-0500 Body mass index (BMI) [Ratio] 35.7 kg/m2 Oscar David HYDROELECTRIC SYSTEMS TECHNICIAN-C Work Phone: [facility] 05-07-2024 13:12-0500 Body weight 97.52 kg Oscar David HYDROELECTRIC SYSTEMS TECHNICIAN-C Work Phone: [facility] 05-07-2024 13:12-0500 Diastolic blood pressure 71 mm[Hg] Oscar David HYDROELECTRIC SYSTEMS TECHNICIAN-C Work Phone: [facility] 05-07-2024 13:12-0500 Heart rate 80 /min Oscar David HYDROELECTRIC SYSTEMS TECHNICIAN-C Work Phone: [facility] 05-07-2024 13:12-0500 Respiratory rate 18 /min Oscar David HYDROELECTRIC SYSTEMS TECHNICIAN-C Work Phone: [facility] 05-07-2024 13:12-0500 SaO2% (BldA) [Mass fraction] 99 % Oscar David HYDROELECTRIC SYSTEMS TECHNICIAN-C Work Phone: [facility] 05-07-2024 13:12-0500 Systolic blood pressure 144 mm[Hg] Oscar David HYDROELECTRIC SYSTEMS TECHNICIAN-C Work Phone: [facility] 05-05-2024 13:32-0500 Body mass index (BMI) [Ratio] 36.1 kg/m2 Oscar David HYDROELECTRIC SYSTEMS TECHNICIAN-C Work Phone: [facility] 05-05-2024 13:32-0500 Body temperature 96.9 [degF] Oscar David HYDROELECTRIC SYSTEMS TECHNICIAN-C Work Phone: [facility] 05-05-2024 13:32-0500 Body weight 98.65 kg Oscar David HYDROELECTRIC SYSTEMS TECHNICIAN-C Work Phone: [facility] 05-05-2024 13:32-0500 Diastolic blood pressure 82 mm[Hg] Oscar David HYDROELECTRIC SYSTEMS TECHNICIAN-C Work Phone: [facility] 05-05-2024 13:32-0500 Heart rate 77 /min Oscar David HYDROELECTRIC SYSTEMS TECHNICIAN-C Work Phone: [facility] 05-05-2024 13:32-0500 Respiratory rate 16 /min Oscar David HYDROELECTRIC SYSTEMS TECHNICIAN-C Work Phone: [facility] 05-05-2024 13:32-0500 SaO2% (BldA) [Mass fraction] 95 % Oscar David HYDROELECTRIC SYSTEMS TECHNICIAN-C Work Phone: [facility] 05-05-2024 13:32-0500 Systolic blood pressure 127 mm[Hg] Oscar David HYDROELECTRIC SYSTEMS TECHNICIAN-C Work Phone: [facility] 05-04-2024 12:33-0500 Body mass index (BMI) [Ratio] 36.1 kg/m2 Oscar David HYDROELECTRIC SYSTEMS TECHNICIAN-C Work Phone: [facility] 05-04-2024 12:33-0500 Body temperature 96.7 [degF] Oscar David HYDROELECTRIC SYSTEMS TECHNICIAN-C Work Phone: [facility] 05-04-2024 12:33-0500 Body weight 98.42 kg Oscar David HYDROELECTRIC SYSTEMS TECHNICIAN-C Work Phone: [facility] 05-04-2024 12:33-0500 Diastolic blood pressure 46 mm[Hg] Oscar David HYDROELECTRIC SYSTEMS TECHNICIAN-C Work Phone: [facility] 05-04-2024 12:33-0500 Heart rate 85 /min Oscar David HYDROELECTRIC SYSTEMS TECHNICIAN-C Work Phone: [facility] 05-04-2024 12:33-0500 Respiratory rate 20 /min Oscar David HYDROELECTRIC SYSTEMS TECHNICIAN-C Work Phone: [facility] 05-04-2024 12:33-0500 SaO2% (BldA) [Mass fraction] 99 % Oscar David HYDROELECTRIC SYSTEMS TECHNICIAN-C Work Phone: [facility] 05-04-2024 12:33-0500 Systolic blood pressure 81 mm[Hg] Oscar David HYDROELECTRIC SYSTEMS TECHNICIAN-C Work Phone: [facility] 04-26-2024 11:49-0500 Body temperature 97.11 [degF] Jarek Vu MD Work Phone: [facility] 04-26-2024 11:49-0500 Diastolic blood pressure 71 mm[Hg] Jarek Vu MD Work Phone: [facility] 04-26-2024 11:49-0500 Heart rate 56 /min Jarek Vu MD Work Phone: [facility] 04-26-2024 11:49-0500 Respiratory rate 16 /min Jarek Vu MD Work Phone: [facility] 04-26-2024 11:49-0500 SaO2% (BldA) [Mass fraction] 100 % Jarek Vu MD Work Phone: [facility] 04-26-2024 11:49-0500 Systolic blood pressure 129 mm[Hg] Jarek Vu MD Work Phone: [facility] 04-26-2024 07:57-0500 Body height 165.1 cm Jarek Vu MD Work Phone: [facility] 04-26-2024 07:57-0500 Body mass index (BMI) [Ratio] 35.78 kg/m2 Jarek Vu MD Work Phone: [facility] 04-26-2024 07:57-0500 Body weight 97.52 kg Jarek Vu MD Work Phone: [facility] 04-16-2024 10:58-0500 Diastolic blood pressure 81 mm[Hg] Jarek Vu MD Work Phone: [facility] 04-16-2024 10:58-0500 Systolic blood pressure 132 mm[Hg] Jarek Vu MD Work Phone: [facility] 04-16-2024 10:53-0500 Body height 165.1 cm Jarek Vu MD Work Phone: [facility] 04-16-2024 10:53-0500 Body mass index (BMI) [Ratio] 36.58 kg/m2 Jarek Vu MD Work Phone: [facility] 04-16-2024 10:53-0500 Body weight 99.7 kg Jarek Vu MD Work Phone: [facility] 04-16-2024 10:53-0500 Heart rate 69 /min Jarek Vu MD Work Phone: [facility] 04-16-2024 10:53-0500 SaO2% (BldA) [Mass fraction] 96 % Jarek Vu MD Work Phone: [facility] 06-25-2023 07:34-0500 Body height 162.56 cm HYDROELECTRIC SYSTEMS TECHNICIAN-C Oscar David Work Phone: [facility] 06-25-2023 07:34-0500 Body mass index (BMI) [Ratio] 36.2 kg/m2 HYDROELECTRIC SYSTEMS TECHNICIAN-C Oscar David Work Phone: [facility] 06-25-2023 07:34-0500 Body temperature 97.5 [degF] HYDROELECTRIC SYSTEMS TECHNICIAN-C Oscar David Work Phone: [facility] 06-25-2023 07:34-0500 Body weight 95.82 kg HYDROELECTRIC SYSTEMS TECHNICIAN-C Oscar David Work Phone: [facility] 06-25-2023 07:34-0500 Diastolic blood pressure 73 mm[Hg] HYDROELECTRIC SYSTEMS TECHNICIAN-C Oscar David Work Phone: [facility] 06-25-2023 07:34-0500 Heart rate 64 /min HYDROELECTRIC SYSTEMS TECHNICIAN-C Oscar David Work Phone: [facility] 06-25-2023 07:34-0500 Respiratory rate 18 /min HYDROELECTRIC SYSTEMS TECHNICIAN-C Oscar David Work Phone: [facility] 06-25-2023 07:34-0500 SaO2% (BldA) [Mass fraction] 99 % HYDROELECTRIC SYSTEMS TECHNICIAN-C Oscar David Work Phone: [facility] 06-25-2023 07:34-0500 Systolic blood pressure 140 mm[Hg] 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 Eagle [facility] 12-23-2022 06:19-0400 Body mass index (BMI) [Ratio] 36.8 kg/m2 Dr. Eagle [facility] 12-23-2022 06:19-0400 Body temperature 97.6 [degF] Dr. Fco Mccarthy [facility] 12-23-2022 06:19-0400 Body weight 97.[address] Fco Mccarthy [facility] 12-23-2022 06:19-0400 Diastolic blood pressure 76 mm[Hg] [facility] 12-23-2022 06:19-0400 Heart rate 70 /min Dr. Eagle [facility] 12-23-2022 06:19-0400 Respiratory rate 16 /min Dr. Eagle [facility] 12-23-2022 06:19-0400 SaO2% (BldA) [Mass fraction] 97 % Dr. Eagle [facility] 12-23-2022 06:19-0400 Systolic blood pressure 120 mm[Hg] [facility] 07-08-2022 07:49-0500 Body height 162.[address] Fco Mccarthy Work Phone: [facility] 07-08-2022 07:49-0500 Body mass index (BMI) [Ratio] 37.4 kg/m2 Dr. Fco Mccarthy Work Phone: [facility] 07-08-2022 07:49-0500 Body temperature 96.1 [degF] Dr. Fco Mccarthy Work Phone: [facility] 07-08-2022 07:49-0500 Body weight 98.[address] Fco Mccarthy Work Phone: [facility] 07-08-2022 07:49-0500 Diastolic blood pressure 76 mm[Hg] Dr. Fco Mccarthy Work Phone: [facility] 07-08-2022 07:49-0500 Heart rate 67 /min Dr. Fco Mccarthy Work Phone: [facility] 07-08-2022 07:49-0500 Respiratory rate 18 /min Dr. Fco Mccarthy Work Phone: [facility] 07-08-2022 07:49-0500 Systolic blood pressure 135 mm[Hg] Dr. Fco Mccarthy Work Phone: [facility] 10-03-2021 07:45-0400 Body height 162.[address] Fco Mccarthy Work Phone: [facility] Work Phone: 10-03-2021 07:45-0400 Body mass index (BMI) [Ratio] 36.8 kg/m2 Dr. Fco Mccarthy Work Phone: [facility] Work Phone: 10-03-2021 07:45-0400 Body temperature 97.5 [degF] Dr. Fco Mccarthy Work Phone: [facility] Work Phone: 10-03-2021 07:45-0400 Body weight 97.[address] Fco Mccarthy Work Phone: [facility] Work Phone: 10-03-2021 07:45-0400 Diastolic blood pressure 81 mm[Hg] Dr. Fco Mccarthy Work Phone: [facility] Work Phone: 10-03-2021 07:45-0400 Heart rate 68 /min Dr. Fco Mccarthy Work Phone: [facility] Work Phone: 10-03-2021 07:45-0400 Respiratory rate 17 /min Dr. Fco Mccarthy Work Phone: [facility] Work Phone: 10-03-2021 07:45-0400 SaO2% (BldA) [Mass fraction] 95 % Dr. Fco Mccarthy Work Phone: [facility] Work Phone: 10-03-2021 07:45-0400 Systolic blood pressure 138 mm[Hg] Dr. Fco Mccarthy Work Phone: [facility] Work Phone: 10-03-2021 07:45-0400 Body height 162.[address] Fco Mccarthy Work Phone: [facility] Work Phone: 10-03-2021 07:45-0400 Body mass index (BMI) [Ratio] 36.8 kg/m2 Dr. Fco Mccarthy Work Phone: [facility] Work Phone: 10-03-2021 07:45-0400 Body temperature 97.5 [degF] Dr. Fco Mccarthy Work Phone: [facility] Work Phone: 10-03-2021 07:45-0400 Body weight 97.[address] Fco Mccarthy Work Phone: [facility] Work Phone: 10-03-2021 07:45-0400 Diastolic blood pressure 81 mm[Hg] Dr. Fco Mccarthy Work Phone: [facility] Work Phone: 10-03-2021 07:45-0400 Heart rate 68 /min Dr. Fco Mccarthy Work Phone: [facility] Work Phone: 10-03-2021 07:45-0400 Respiratory rate 17 /min Dr. Fco Mccarthy Work Phone: [facility] Work Phone: 10-03-2021 07:45-0400 SaO2% (BldA) [Mass fraction] 95 % Dr. Fco Mccarthy Work Phone: [facility] Work Phone: 10-03-2021 07:45-0400 Systolic blood pressure 138 mm[Hg] Dr. Fco Mccarthy Work Phone: [facility] Work Phone: 01-31-2017 09:04-0400 BMI (Body Mass Index) 36.61 kg/m2 uAdrey Aparicio [facility] Work Phone: 01-31-2017 09:04-0400 Body Temperature 97.5 [degF] Audrey Aparicio [facility] [place] Work Phone: 01-31-2017 09:04-0400 BP Diastolic 80 mm[Hg] Audrey Aparicio [facility] [place] Work Phone: 01-31-2017 09:04-0400 BP Systolic 140 mm[Hg] Audrey Aparicio [facility] [place] Work Phone: 01-31-2017 09:04-0400 Height 165.1 cm Audrey Aparicio [facility] Work Phone: 01-31-2017 09:04-0400 Pulse (Heart Rate) 80 /min Audrey Aparicio [facility] [place] Work Phone: 01-31-2017 09:04-0400 Respiratory Rate 18 /min Audrey Aparicio [facility] [place] [employer] Phone: 01-31-2017 09:04-0400 Weight 99.79 kg Audrey Aparicio [facility] [employer] Work Phone: 10-09-2016 06:54-0400 BMI (Body Mass Index) 35.61 kg/m2 Corine Luis LPN [facility] [employer] Work Phone: 10-09-2016 06:54-0400 Body Temperature 97.4 [degF] Corine Luis LPN [facility] [employer] Work Phone: 10-09-2016 06:54-0400 BP Diastolic 92 mm[Hg] Corine Yensho ORACLE PROGRAMMER [facility] [place] Work Phone: 10-09-2016 06:54-0400 BP Systolic 147 mm[Hg] Corine Yensho ORACLE PROGRAMMER [facility] [place] Work Phone: 10-09-2016 06:54-0400 Height 165.1 cm Corine Yensho ORACLE PROGRAMMER [facility] [place] Work Phone: 10-09-2016 06:54-0400 Pulse (Heart Rate) 66 /min Corine Yensho ORACLE PROGRAMMER [facility] Work Phone: 10-09-2016 06:54-0400 Pulse Oximetry 98 % Corine Yensho ORACLE PROGRAMMER [facility] [place] Work Phone: 10-09-2016 06:54-0400 Respiratory Rate 18 /min Corine Yensho ORACLE PROGRAMMER [facility] [employer] Work Phone: 10-09-2016 06:54-0400 Weight 97.07 kg Corine Yensho ORACLE PROGRAMMER [facility] [employer] Work Phone: 10-02-2015 15:50-0400 BSA (Body Surface Area) 2 m2 Corine Yensho ORACLE PROGRAMMER [facility] [employer] Work Phone: Encounters Encounter Date Encounter Type Care Provider Facility Start: 02-22-2025 ambulatory Oscar Mott Facility:[facility] Start: 02-15-2025 End: 02-15-2025 ambulatory Oscar Mott HYDROELECTRIC SYSTEMS TECHNICIAN-C Work Phone: -[facility] Start: 02-15-2025 End: 02-15-[address] Nicolas Barclay DO -[facility] Work Phone: Start: 02-10-[address] Nicolas Barclay DO -[facility] Work Phone: Start: 02-10-2025 ambulatory Nicolas Barclay Facility: [facility] Start: 02-01-2025 End: 02-01-[address] Nicola Prabhakar MD -[facility] Work Phone: Start: 02-01-2025 End: 02-01-2025 ambulatory Oscar David HYDROELECTRIC SYSTEMS TECHNICIAN-C Work Phone: [facility] Start: 01-26-[address] Nicloas Abdalla on [facility] Start: 01-26-2025 End: 01-26-[address] Maxi Merlos MD -[facility] Work Phone: Start: 01-26-2025 End: 01-26-2025 ambulatory Oscar David HYDROELECTRIC SYSTEMS TECHNICIAN-C Work Phone: [facility] Start: 12-29-[address] Nicolas Abdalla on [facility] Start: 12-29-2024 End: 12-29-[address] Jamie Ortiz MD -[facility] Work Phone: Start: 12-29-2024 End: 12-29-2024 ambulatory Oscar David HYDROELECTRIC SYSTEMS TECHNICIAN-C Work Phone: [facility] Start: 12-24-2024 End: 12-24-2024 ambulatory Oscar David HYDROELECTRIC SYSTEMS TECHNICIAN-C Work Phone: -[facility] Start: 12-24-2024 End: 12-24-[address] Maxi Merlos MD -[facility] Work Phone: Start: 12-24-2024 End: 12-24-2024 ambulatory Oscar David Facility:[facility] Start: 12-01-2024 End: 12-01-[address] Maxi Merlos MD -[facility] Work Phone: Start: 12-01-2024 End: 12-01-2024 ambulatory Oscar David HYDROELECTRIC SYSTEMS TECHNICIAN-C Work Phone: [facility] Start: 12-01-[address] Nicolas Abdalla on [facility] Start: 11-16-2024 End: 11-16-[address] Nicolas Barclay DO -[facility] Work Phone: Start: 11-16-2024 End: 11-16-2024 ambulatory Oscar Mott HYDROELECTRIC SYSTEMS TECHNICIAN-C Work Phone: [facility] Work Phone: Start: 11-10-2024 End: 11-10-2024 ambulatory Oscar Mott HYDROELECTRIC SYSTEMS TECHNICIAN-C Work Phone: [facility] Work Phone: Start: 11-10-2024 End: 11-10-[address] Nicolas Barclay DO -[facility] Work Phone: Start: 11-10-2024 End: 11-10-2024 ambulatory Nicolas Barclay Facility:[facility] Start: 11-04-2024 End: 11-04-2024 Patient encounter procedure Angela Linton HYDROELECTRIC SYSTEMS TECHNICIAN-C -[facility] Work Phone: Start: 11-04-2024 End: 11-04-2024 ambulatory Oscar Mott HYDROELECTRIC SYSTEMS TECHNICIAN-C Work Phone: [facility] Work Phone: Start: 11-03-[address] Nicolas Abdalla on [facility] Start: 11-03-2024 End: 11-03-[address] Maxi Merlos MD -[facility] Work Phone: Start: 11-03-2024 End: 11-03-2024 ambulatory Oscar Mott HYDROELECTRIC SYSTEMS TECHNICIAN-C Work Phone: [facility] Work Phone: Start: 10-15-2024 End: 10-15-2024 ambulatory Oscar Mott HYDROELECTRIC SYSTEMS TECHNICIAN-C Work Phone: [facility] Work Phone: Start: 10-15-2024 End: 10-15-2024 Patient encounter procedure Oscar Mott HYDROELECTRIC SYSTEMS TECHNICIAN-C -[facility] Work Phone: Start: 10-15-2024 End: 10-15-2024 ambulatory [facility] Facility:[facility] Start: 10-06-[address] Nicolas Abdalla on [facility] Start: 10-06-2024 End: 10-06-2024 Patient encounter procedure Leighannrosa EsparzaEileen HYDROELECTRIC SYSTEMS TECHNICIAN-C -[facility] Work Phone: Start: 10-06-2024 End: 10-06-2024 ambulatory [facility] Facility:[facility] Start: 09-08-2024 End: 09-08-2024 Patient encounter procedure Leighann Eileen HYDROELECTRIC SYSTEMS TECHNICIAN-C -[facility] Work Phone: Start: 09-08-2024 End: 09-08-2024 ambulatory [facility] Facility:[facility] Start: 08-30-2024 End: 08-30-2024 Patient encounter procedure Leighann Eileen HYDROELECTRIC SYSTEMS TECHNICIAN-C -[facility] Work Phone: Start: 08-30-2024 End: 08-30-2024 ambulatory [facility] Facility:[facility] Start: 08-25-2024 End: 08-25-2024 ambulatory [facility] Facility:[facility] Start: 08-25-2024 End: 08-25-[address] Maxi Merlos MD -[facility] Work Phone: Start: 08-25-2024 End: 08-25-[address] Nicola Prabhakar MD -[facility] Work Phone: Start: 08-25-2024 End: 08-25-2024 ambulatory [facility] Facility:[facility] Start: 08-23-2024 End: 08-23-2024 Patient encounter procedure Leighann Arellano HYDROELECTRIC SYSTEMS TECHNICIAN-C -Cat Scan [facility] Work Phone: Start: 08-23-2024 End: 08-23-2024 ambulatory Leighann Eileen HYDROELECTRIC SYSTEMS TECHNICIAN Facility:[facility] Start: 08-18-2024 End: 08-18-2024 Patient encounter procedure Leighann Eileen HYDROELECTRIC SYSTEMS TECHNICIAN-C -[facility] Work Phone: Start: 08-18-2024 End: 08-18-2024 Leighann Eileen HYDROELECTRIC SYSTEMS TECHNICIAN-C -[facility] Work Phone: Start: 08-18-2024 End: 08-18-2024 ambulatory [facility] Facility:[facility] Start: 08-13-2024 End: 08-13-2024 Patient encounter procedure Angela Linton HYDROELECTRIC SYSTEMS TECHNICIAN-C -[facility] Work Phone: Start: 08-13-2024 End: 08-13-2024 Angela Linton HYDROELECTRIC SYSTEMS TECHNICIAN-C -[facility] Work Phone: Start: 08-13-2024 End: 08-13-2024 ambulatory [facility] Facility:[facility] Start: 08-12-2024 End: 08-12-[address] Nicolas Barclay DO [facility] Work Phone: Start: 08-12-2024 End: 08-12-2024 Dr. Nicolas Barclay DO [facility] Work Phone: Start: 08-12-2024 End: 08-12-2024 ambulatory [facility] Facility:[facility] Start: 08-10-2024 End: 08-10-2024 ambulatory [facility] HYDROELECTRIC SYSTEMS TECHNICIAN-C Work Phone: [facility] Work Phone: Start: 08-10-2024 End: 08-10-[address] Nicolas Barclay DO [facility] Work Phone: Start: 08-10-2024 End: 08-10-2024 Dr. Nicolas Barclay DO [facility] Work Phone: Start: 08-09-2024 End: 08-09-2024 Patient encounter procedure Leighann Arellano HYDROELECTRIC SYSTEMS TECHNICIAN-C -[facility] Work Phone: Start: 08-09-2024 End: 08-09-2024 Leighann Eileen HYDROELECTRIC SYSTEMS TECHNICIAN-C -[facility] Work Phone: Start: 08-09-2024 End: 08-10-2024 ambulatory Nicolas Barclay Facility:[facility] Start: 08-02-2024 End: 08-02-2024 Patient encounter procedure Leighann Eileen HYDROELECTRIC SYSTEMS TECHNICIAN-C -[facility] Work Phone: Start: 08-02-2024 End: 08-02-2024 Leighann Eileen HYDROELECTRIC SYSTEMS TECHNICIAN-C -[facility] Work Phone: Start: 08-02-2024 End: 08-02-2024 ambulatory [facility] Facility:[facility] Start: 07-26-2024 End: 07-26-2024 Patient encounter procedure Leighann Eileen HYDROELECTRIC SYSTEMS TECHNICIAN-C -[facility] Work Phone: Start: 07-26-2024 End: 07-26-2024 Leighann Eileen HYDROELECTRIC SYSTEMS TECHNICIAN-C -[facility] Work Phone: Start: 07-26-2024 End: 07-26-2024 ambulatory [facility] Facility:[facility] Start: 07-20-2024 End: 07-20-[address] Maxi Merlos MD -[facility] Work Phone: Start: 07-20-2024 End: 07-20-2024 Dr. Maxi Merlos MD -[facility] Work Phone: Start: 07-20-2024 End: 07-20-2024 ambulatory [facility] Facility:[facility] Start: 07-19-2024 ambulatory [facility] Start: 07-13-2024 End: 07-13-2024 Patient encounter procedure Leighann Eileen HYDROELECTRIC SYSTEMS TECHNICIAN-C -[facility] Work Phone: Start: 07-13-2024 End: 07-13-2024 Leighann Eileen HYDROELECTRIC SYSTEMS TECHNICIAN-C -[facility] Work Phone: Start: 07-13-2024 End: 07-13-2024 ambulatory [facility] Facility:[facility] Start: 07-12-2024 End: 07-12-[address] [facility] Work Phone: Start: 07-12-2024 End: 07-12-2024 Dr. [facility] Work Phone: Start: 07-12-2024 End: 07-12-2024 ambulatory [facility] Facility:[facility] Start: 07-06-2024 End: 07-06-2024 Patient encounter procedure Leighann Arellano HYDROELECTRIC SYSTEMS TECHNICIAN-[facility] Work Phone: Start: 07-06-2024 End: 07-06-2024 Leighannrosa HernandezEileen HYDROELECTRIC SYSTEMS TECHNICIAN- -[facility] Work Phone: Start: 07-06-2024 End: 07-06-2024 [facility] Facility:[facility] Start: 07-05-2024 Non-patient / Non-visit Dr. Gareth Packer MD [facility] Work Phone: Start: 07-05-2024 Dr. Gareth Packer MD [facility] Work Phone: Start: 07-05-2024 Non-patient / [facility] Start: 07-05-2024 Dr. Nicola Prabhakar MD [facility] Start: 07-04-2024 Non-patient / Non-[facility] Start: 07-04-2024 Dr. Nicola Prabhakar MD [facility] Start: 07-03-2024 Non-patient / Non-visit Dr. Gareth Packer MD [facility] Work Phone: Start: 07-03-2024 Dr. Gareth Packer MD [facility] Work Phone: Start: 07-02-2024 [facility] Start: 07-02-2024 End: 07-05-2024 Evaluation and management of inpatient Dr. Gareth Packer MD -[facility] Work Phone: Start: 07-02-2024 End: 07-05-2024 Dr. Gareth Packer MD -[facility] Work Phone: Start: 06-28-2024 End: 06-28-2024 Patient encounter procedure Leighann Arellano HYDROELECTRIC SYSTEMS TECHNICIAN-C -[facility] Work Phone: Start: 06-28-2024 End: 06-28-2024 Leighann HernandezEileen HYDROELECTRIC SYSTEMS TECHNICIAN-C -[facility] Work Phone: Start: 06-28-2024 End: 06-28-2024 ambulatory [facility] Facility:[facility] Start: 06-14-2024 End: 06-14-2024 Leighann HernandezEileen HYDROELECTRIC SYSTEMS TECHNICIAN-C -[facility] Work Phone: Start: 06-14-2024 End: 06-14-2024 ambulatory [facility] Facility:[facility] Start: 06-10-2024 End: 06-10-2024 Dr. [facility] Work Phone: Start: 06-10-2024 End: 06-10-2024 ambulatory Nicolas Barclay Facility:[facility] Start: 06-08-2024 End: 06-08-2024 Dr. [facility] Work Phone: Start: 06-08-2024 End: 06-08-2024 ambulatory Nicolas Barclay Facility:[facility] Start: 06-03-2024 End: 06-03-2024 Dr. [facility] Work Phone: Start: 06-03-2024 End: 06-03-2024 ambulatory Nicolas Barclay Facility:[facility] Start: 06-01-2024 Dr. Aj Barron DO [facility] Work Phone: Start: 05-31-2024 Dr. Jamie Ortiz MD -[facility] Start: 05-31-2024 Dr. Fitz Reyes DO -[facility] -[facility] Start: 05-30-2024 ambulatory [facility] Facility:[facility] Start: 05-30-2024 End: 06-01-2024 Evaluation and management of inpatient [facility] Facility:[facility] Start: 05-30-2024 End: 06-01-2024 Dr. Aj Barron DO -Intensive Care Unit Work Phone: Start: 05-24-2024 End: 05-24-2024 Dr. Nicolas Barclay DO [facility] Work Phone: Start: 05-24-2024 End: 05-24-2024 ambulatory Nicolas Neskowin Facility:[facility] Start: 05-21-2024 End: 05-21-2024 Dr. Nicolas Barclay DO [facility] Work Phone: Start: 05-21-2024 End: 05-21-2024 ambulatory [facility] Facility:[facility] Start: 05-18-2024 End: 05-18-2024 Dr. Nicolas Barclay DO [facility] Work Phone: Start: 05-18-2024 End: 05-18-2024 ambulatory [facility] Facility:[facility] Start: 05-17-2024 End: 05-17-2024 Leighann Arellano [facility] Work Phone: Start: 05-17-2024 End: 05-17-2024 ambulatory [facility] Facility:[facility] Start: 05-14-2024 ambulatory Nicolas Artston Facility: [facility] Start: 05-14-2024 Dr. Nicolas FARAHW [facility] Start: 05-13-2024 ambulatory [facility] Facility:[facility] Start: 05-13-2024 Dr. Nicola Prabhakar MD -[facility] Start: 05-13-2024 End: 05-13-2024 Dr. Nicola Prabhakar MD -[facility] Start: 05-13-2024 End: 05-13-2024 ambulatory Nicola Prabhakar Facility:[facility] Start: 05-12-2024 ambulatory Nicolas Barclay Facility: [facility] Start: 05-12-2024 Dr. Nicolas FARAHW [facility] Start: 05-11-2024 End: 05-11-2024 Dr. [facility] Work Phone: Start: 05-11-2024 End: 05-11-2024 ambulatory Oscardavy Mott Facility:[facility] Start: 05-10-2024 End: 05-10-2024 Angela Linton HYDROELECTRIC SYSTEMS TECHNICIAN-C -[facility] Work Phone: Start: 05-10-2024 End: 05-10-2024 ambulatory Angela Linton NP Facility:[facility] Start: 05-07-2024 End: 05-07-2024 Dr. Nicola Prabhakar MD -[facility] Work Phone: Start: 05-07-2024 End: 05-07-2024 ambulatory [facility] Facility:[facility] Start: 05-05-2024 End: 05-05-2024 Dr. Maxi Merlos MD -[facility] Work Phone: Start: 05-05-2024 End: 05-05-2024 ambulatory Maxi Merlos Facility:[facility] Start: 05-04-2024 End: 05-04-2024 Documentation procedure Alka Talbot [facility] [place] Comment on above: Tumor Board Recommen dations (Thoracic Tumor Board Recommendations 05/04/24) Start: 05-04-2024 End: 05-04-2024 Telephone encounter Jarek Vu MD Work Phone: [facility] [place] Comment on above: Care Coordination (M RI and oncology appt scheduling/ record communications) Start: 05-04-2024 End: 05-04-2024 Angela Linton HYDROELECTRIC SYSTEMS TECHNICIAN-C -Jud Pulmonary Medicine Work Phone: Start: 05-04-2024 End: 05-04-2024 ambulatory [facility] Facility:[facility] Start: 04-26-2024 End: 04-26-2024 ambulatory [facility] Start: 04-26-2024 End: 04-26-2024 Subsequent hospital visit by physician Jarek Vu MD Work Phone: [facility] MAIN OR Comment on above: Lung mass; Mediastinal adenopathy Start: 04-21-2024 End: 04-21-2024 Subsequent hospital visit by physician Jarek Vu MD Work Phone: [facility] CT Imaging Comment on above: Lung mass; Mediastinal adenopathy Start: 04-21-2024 End: 04-21-2024 ambulatory [facility] Start: 04-20-2024 End: 04-20-2024 Telephone encounter Alka MATUTEP [facility] [place] Comment on above: Care Coordination (O utside image request ) Start: 04-19-2024 ambulatory [facility]yes Facility:[facility] Start: 04-16-2024 End: 04-16-2024 Telephone encounter Carleen Bran RN [facility] [place] Comment on above: Care Coordination Start: 04-16-2024 End: 04-16-2024 Office outpatient new 60 minutes Jarek Vu MD Work Phone: [facility] Comment on above: Lung mass (Primary D x); Mediastinal adenopathy; Chronic obstructive pulmonary disease, unspecified COPD type (HCC) Start: 04-16-2024 End: 04-16-2024 ambulatory [facility] Start: 04-14-2024 End: 04-15-2024 ambulatory Angela Linton HYDROELECTRIC SYSTEMS TECHNICIAN Facility:[facility] Start: 04-14-2024 End: 04-14-2024 ambulatory Angela Linton HYDROELECTRIC SYSTEMS TECHNICIAN Facility:[facility] Start: 04-06-2024 End: 04-06-2024 ambulatory Oscardavy Mott Facility:[facility] Start: 03-30-2024 End: 03-30-2024 ambulatory Angela Linton HYDROELECTRIC SYSTEMS TECHNICIAN Facility:[facility] Start: 03-23-2024 End: 03-23-2024 ambulatory Angela Linton HYDROELECTRIC SYSTEMS TECHNICIAN Facility:[facility] Start: 02-26-2024 End: 02-26-2024 ambulatory Oscar David Facility:[facility] Start: 02-26-2024 End: 02-26-2024 ambulatory Angela Linton HYDROELECTRIC SYSTEMS TECHNICIAN Facility:[facility] Start: 02-24-2024 End: 02-24-2024 ambulatory Oscar David Facility:[facility] Start: 09-26-2023 End: 09-26-2023 ambulatory HYDROELECTRIC SYSTEMS TECHNICIAN-C Oscar Mott Work Phone: [facility] Work Phone: Start: 09-26-2023 End: 09-26-2023 Patient encounter procedure HYDROELECTRIC SYSTEMS TECHNICIAN-Jose Mott Work Phone: [facility]-Outpatient Breast Imaging Work Phone: Start: 09-19-2023 End: 09-19-2023 ambulatory HYDROELECTRIC SYSTEMS TECHNICIAN-C Oscar Mott Work Phone: [facility] Work Phone: Start: 09-19-2023 End: 09-19-2023 Patient encounter procedure HYDROELECTRIC SYSTEMS TECHNICIAN-C Oscar Mott Work Phone: [facility]-Laboratory Rama Idalia [facility] Start: 06-25-2023 End: 06-25-2023 Patient encounter procedure HYDROELECTRIC SYSTEMS TECHNICIAN-C Oscar Mott Work Phone: [facility] Pulmonary Medicine Work Phone: Start: 03-20-2023 End: 03-20-[address] Fco Mccarthy [facility] Work Phone: Start: 03-20-2023 End: 03-20-[address] Fco Mccarthy [facility]-Laboratory Work Phone: Start: 12-23-2022 End: 12-23-[address] Fco Mccarthy [facility]-Pulmonary Medicine [facility] Work Phone: Start: 09-20-2022 End: 09-20-[address] Fco Mccarthy Work Phone: [facility] Work Phone: Start: 09-20-2022 End: 09-20-[address] Fco Mccarthy Work Phone: [facility]-Outpatient Breast Imaging Start: 09-13-2022 End: 09-13-[address] Fco Mccarthy Work Phone: [facility] Start: 07-08-2022 End: 07-08-[address] Fco Mccarthy Work Phone: [facility] Start: 12-21-2021 End: 12-21-[address] Fco Mccarthy Work Phone: [facility] Start: 11-09-2021 End: 11-09-[address] [facility] Start: 11-07-2021 End: 11-07-2021 Subsequent hospital visit by physician Diagnostic Mammo [facility] Comment on above: diagnostic mammogram Start: 10-03-2021 End: 10-03-[address] Fco Mccarthy Work Phone: [facility] Start: 09-21-2021 Documentation procedure Mammog jenny Coordinator [facility] Start: 09-21-2021 Letter encounter Mammography Coordinator [facility] Department Start: 09-21-2021 End: 09-21-2021 Subsequent hospital visit by physician Screen Mammo [facility] Procedures Date Procedure Procedure Detail Performing Clinician Start: 02-10-2025 MRI of brain with contrast Oscar Mott HYDROELECTRIC SYSTEMS TECHNICIAN-C Work Phone: Start: 01-26-2025 Estimated creatinine clearance Oscar David HYDROELECTRIC SYSTEMS TECHNICIAN-C Work Phone: Start: 12-29-2024 Estimated creatinine clearance Oscar David HYDROELECTRIC SYSTEMS TECHNICIAN-C Work Phone: Start: 12-29-2024 Serum inorganic phos phate measurement Oscar David HYDROELECTRIC SYSTEMS TECHNICIAN-C Work Phone: Start: 12-24-2024 CT of thorax and abd omen with contrast Oscar Mott HYDROELECTRIC SYSTEMS TECHNICIAN-C Work Phone: Start: 12-01-2024 Estimated creatinine clearance Oscar David HYDROELECTRIC SYSTEMS TECHNICIAN-C Work Phone: Start: 11-10-2024 MRI of brain with contrast Oscar David HYDROELECTRIC SYSTEMS TECHNICIAN-C Work Phone: Start: 11-03-2024 Estimated creatinine clearance Oscar David HYDROELECTRIC SYSTEMS TECHNICIAN-C Work Phone: Start: 10-15-2024 Screening mammography R achel David HYDROELECTRIC SYSTEMS TECHNICIAN-C Work Phone: Start: 10-06-2024 Estimated creatinine clearance Oscar David HYDROELECTRIC SYSTEMS TECHNICIAN-C Work Phone: Start: 08-23-2024 CT of thorax and abd omen with contrast Oscar David HYDROELECTRIC SYSTEMS TECHNICIAN-C Work Phone: Start: 08-18-2024 Serum inorganic phos phate measurement Oscar David HYDROELECTRIC SYSTEMS TECHNICIAN-C Work Phone: Start: 08-10-2024 MRI of brain with contrast Oscar David HYDROELECTRIC SYSTEMS TECHNICIAN-C Work Phone: Start: 07-26-2024 Measurement of renal function Oscar David HYDROELECTRIC SYSTEMS TECHNICIAN-C Work Phone: Comment on above: GFR Calc Start: 07-13-2024 Total iron binding capacity measurement Oscar David HYDROELECTRIC SYSTEMS TECHNICIAN-C Work Phone: Start: 07-05-2024 Estimated creatinine clearance Osacr David HYDROELECTRIC SYSTEMS TECHNICIAN-C Work Phone: Start: 07-05-2024 Measurement of renal function Oscar David HYDROELECTRIC SYSTEMS TECHNICIAN-C Work Phone: Comment on above: GFR Calc Start: 07-04-2024 CT of abdomen and pe lvis with oral contrast Oscar David HYDROELECTRIC SYSTEMS TECHNICIAN-C Work Phone: Start: 07-04-2024 Assay of phosphorus inorganic Oscar David HYDROELECTRIC SYSTEMS TECHNICIAN-C Work Phone: Start: 07-03-2024 Plain X-ray abdomen Rac hel David HYDROELECTRIC SYSTEMS TECHNICIAN-C Work Phone: Start: 07-03-2024 Total iron binding capacity measurement Oscar David HYDROELECTRIC SYSTEMS TECHNICIAN-C Work Phone: Start: 07-02-2024 Vitamin B12 measurement Oscar Mott HYDROELECTRIC SYSTEMS TECHNICIAN-C Work Phone: Start: 07-02-2024 Measurement of 3,4-methylenedioxymethamp hetamine in urine Oscar Mott HYDROELECTRIC SYSTEMS TECHNICIAN-C Work Phone: Start: 07-02-2024 Methadone measuremen t, urine Oscar Mott HYDROELECTRIC SYSTEMS TECHNICIAN-C Work Phone: Start: 07-02-2024 Urine barbiturate measurement Oscar Mott HYDROELECTRIC SYSTEMS TECHNICIAN-C Work Phone: Start: 07-02-2024 MRI of brain without contrast Oscar Mott HYDROELECTRIC SYSTEMS TECHNICIAN-C Work Phone: Start: 07-02-2024 Serum ethanol measurement Oscar Mott HYDROELECTRIC SYSTEMS TECHNICIAN-C Work Phone: Comment on above: The serum:whole bloo d ethanol ratio is approximately 1.14and varies slightly with hematocrit. Medical Alcohol reference interval and critical value innon-tolerant individuals; 50 - 100 Impairment 100 Intoxication 100 - 250 Severe Poisoning 250 - 400 Deep/possible fatal coma Start: 07-02-2024 Urnls dip stick/tabl et reagent auto microscopy Oscar Mott HYDROELECTRIC SYSTEMS TECHNICIAN-C Work Phone: Start: 07-02-2024 CT of head without contrast Oscar Mott HYDROELECTRIC SYSTEMS TECHNICIAN-C Work Phone: Start: 07-02-2024 Plain chest X-ray Jeffrey Mott HYDROELECTRIC SYSTEMS TECHNICIAN-C Work Phone: Start: 07-02-2024 Folic acid measurement Oscar Mott HYDROELECTRIC SYSTEMS TECHNICIAN-C Work Phone: Start: 07-02-2024 Urine culture Oscar amin HYDROELECTRIC SYSTEMS TECHNICIAN-C Work Phone: Start: 06-18-2024 Clostridium difficil e detection Oscar Mott HYDROELECTRIC SYSTEMS TECHNICIAN-C Work Phone: Start: 06-18-2024 Nucleic acid assay Blaire Mott HYDROELECTRIC SYSTEMS TECHNICIAN-C Work Phone: Start: 06-18-2024 Iadna-dna/rna gi pth gn multiplex probe tq 6-11 Oscar Mott HYDROELECTRIC SYSTEMS TECHNICIAN-C Work Phone: Start: 05-30-2024 Plain chest X-ray Jeffrey Mott HYDROELECTRIC SYSTEMS TECHNICIAN-C Work Phone: Start: 05-30-2024 Blood culture Oscar amin HYDROELECTRIC SYSTEMS TECHNICIAN-C Work Phone: Start: 05-30-2024 Urine culture Oscar Valera gar HYDROELECTRIC SYSTEMS TECHNICIAN-C Work Phone: Start: 05-30-2024 Oscar Neri ar HYDROELECTRIC SYSTEMS TECHNICIAN-C Work Phone: Start: 05-30-2024 Computed tomography of abdomen and pelvis with intravenous contrast Oscar Mott HYDROELECTRIC SYSTEMS TECHNICIAN-C Work Phone: Start: 05-13-2024 Plain chest X-ray Jeffrey Mott HYDROELECTRIC SYSTEMS TECHNICIAN-C Work Phone: Start: 05-13-2024 Fluoroscopic guidance R mook Mott HYDROELECTRIC SYSTEMS TECHNICIAN-C Work Phone: Start: 05-09-2024 MRI of brain with contrast Oscar Mott 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 Fco Mccarthy Work Phone: Start: 11-07-2021 Us breast uni real t soham with image limited [facility] Provider Start: 11-07-2021 ZAY DIAG W HENRRY LT [facility] Provider Start: 09-21-2021 ZAY SCREENING W HENRRY [facility]c f Provider Start: 09-21-2021 Mammography Screen Wst r History of cataract extraction History of cataract extraction Dr. Fco Mccarthy Work Phone: Plan of Treatment Date Care Activity Detail Author Start: 11-13-2030 DTaP/Tdap/Td Vaccines (4 - Td or Tdap) DTaP/Tdap/Td Vaccines (4 - Td or Tdap) [facility] Start: 01-26-2025 [facility] Start: 12-29-2024 [facility] Start: 12-29-2024 Magnesium measurement [facility] Start: 12-29-2024 Serum inorganic phosphate measurement [facility] Start: 12-24-2024 Venous catheter care management [facility] Start: 12-01-2024 [facility] Start: 11-03-2024 [facility] Start: 09-25-2024 Screening for malignant neoplasm of breast Mammogram [facility] Start: 08-23-2024 Venous catheter care management [facility] Start: 08-18-2024 Patient referral [facility] Work Phone: Start: 08-10-2024 Venous catheter care management [facility] Start: 07-28-2024 Administration of blood product [facility] Start: 07-28-2024 [facility] Start: 07-28-2024 Vital signs measurements [facility] Start: 07-27-2024 Administration of blood product [facility] Start: 07-27-2024 [facility] Start: 07-27-2024 Vital signs measurements [facility] Start: 07-26-2024 Vital signs measurements [facility] Start: 07-08-2024 Vital signs measurements [facility] Start: 07-07-2024 Vital signs measurements [facility] Start: 07-06-2024 Vital signs measurements [facility] Start: 07-05-2024 Patient discharge [facility] Start: 07-04-2024 Care planning and problem solving actions [facility] Start: 07-04-2024 Referral to general surgeon [facility] Start: 07-03-2024 [facility] Start: 07-03-2024 Inhalation therapy procedure [facility] Start: 07-02-2024 Following clinical pathway protocol [facility] Start: 07-02-2024 Aspiration precautions [facility] Start: 07-02-2024 Assessment of risk of venous thromboembolism [facility] Start: 07-02-2024 Care regimes management [facility] Start: 07-02-2024 Insertion of catheter into peripheral vein [facility] Start: 07-02-2024 Measuring intake and output [facility] Start: 07-02-2024 Notification of physician [facility] Start: 07-02-2024 Oxygen therapy [facility] Start: 07-02-2024 Providing care according to standard [facility] Start: 07-02-2024 Provision of activity privileges [facility] Start: 07-02-2024 Referral to occupational therapist [facility] Start: 07-02-2024 Referral to service [facility] Start: 07-02-2024 Speech therapy assessment [facility] Start: 07-02-2024 End: 07-02-2024 [facility] Start: 07-02-2024 Continuous positive airway pressure ventilation treatment [facility] Start: 07-02-2024 Admission procedure [facility] Start: 06-16-2024 Vital signs measurements [facility] Start: 06-15-2024 Vital signs measurements [facility] Start: 06-14-2024 Vital signs measurements [facility] Start: 06-01-2024 Patient discharge [facility] Start: 05-31-2024 [facility] Start: 05-31-2024 Care planning and problem solving actions [facility] Start: 05-30-2024 Venous catheter care management [facility] Start: 05-30-2024 Assessment of risk of venous thromboembolism [facility] Start: 05-30-2024 Care regimes management [facility] Start: 05-30-2024 Consultation [facility] Start: 05-30-2024 Continuous pulse oximetry [facility] Start: 05-30-2024 Incentive spirometry [facility] Start: 05-30-2024 Insertion of catheter into peripheral vein [facility] Start: 05-30-2024 Notification of physician [facility] Start: 05-30-2024 Oxygen therapy [facility] Start: 05-30-2024 Providing care according to standard [facility] Start: 05-30-2024 Referral to occupational therapist [facility] Start: 05-30-2024 Referral to service [facility] Start: 05-30-2024 Vital signs measurements [facility] Start: 05-30-2024 End: 05-30-2024 [facility] Start: 05-30-2024 Admission procedure [facility] Start: 05-30-2024 Patient referral to dietitian [facility] Start: 05-17-2024 Venous catheter care management [facility] Start: 05-13-2024 Anesthesia access central venous circulation [facility] Start: 05-13-2024 Insj tunneled ctr vad w/subq port age 4 yr/> [facility] Start: 05-13-2024 Patient discharge [facility] Start: 05-12-2024 End: 05-12-2024 Telemedicine consultation with patient 05/12/2024 9:00 AM EST Telemedicine [facility] [place] [address] [place] [phone] Jarek Vu MD [address] [place], [place] [id number] [facility] Start: 05-05-2024 Patient referral [facility] Work Phone: Start: 05-04-2024 Patient referral [facility] Work Phone: Start: 04-28-2024 End: 04-28-2024 Patient encounter procedure 04/28/2024 7:00 AM EST Appointment [facility] [address] [place] [phone] Jarek Vu MD [address] [place], [place] [id number] [facility] Start: 04-26-2024 End: 04-26-2024 Admission to same day surgery center 04/26/2024 9:00 AM EST - 04/26/2024 11:00 AM EST Surgery [facility] [address] [place] [phone] Jarek Vu MD [address] [place] [address] ENDOBRONCHIAL ULTRASOUND BRONCHOSCOPY [26582 (CPT )] [facility] Endoscopy Comment on above: ENDOBRONCHIAL ULTRASOUND BRONCHOSCOPY [3 5342 (CPT )] Start: 04-26-2024 End: 04-26-2024 Brnschsc tndsc ebus dx/tx intervention perph les [facility] Gastroenterology Start: 04-26-2024 End: 04-26-2024 Bronchoscopy w/cptr-asst image-guided navigation [facility] Gastroenterology Start: 04-26-2024 Subsequent hospital visit by physician [facility] Endoscopy Start: 04-21-2024 End: 04-21-2024 Patient encounter procedure 04/21/2024 11:30 AM EST Appointment [facility] CT Imaging [address] [place] [phone] Jarek Vu MD [address] [place] [address] [facility] CT Imaging Start: 04-16-2024 End: 04-16-2025 CT Chest WO contrast CT chest wo IV contrast Imaging Routine Lung mass Mediastinal adenopathy Expected: 04/16/2024, Expires: 04/16/2025 [facility] Work Phone: Comment on above: Expected: 04/16/2024, Expires: Start: 02-01-2024 COVID-19 Vaccine ( season) COVID-19 Vaccine ( season) [facility] Start: 11-26-2023 Urine microalbumin profile DTAP,TDAP,TD (2 - Td or Tdap) [facility] Start: 09-21-2022 Mammography MAMMOGRAM [facility] Start: 01-31-2022 Influenza vaccination INFLUENZA (Season Ended) [facility] Start: 06-02-2021 ADVANCE DIRECTIVE DISCUSSION ADVANCE DIRECTIVE DISCUSSION [facility] Start: 05-02-2020 LIPID SCREEN LIPID SCREEN [facility] Start: 08-04-2019 BONE DENSITY BONE DENSITY [facility] Start: 08-04-2019 PNEUMOVAX AGE 65 AND OVER WITH 5YR LOOKBACK (#1) PNEUMOVAX AGE 65 AND OVER WITH 5YR LOOKBACK (#1) [facility] Start: 05-02-2018 DIABETES SCREEN DIABETES SCREEN [facility] Start: 08-01-2017 End: 08-01-2017 Appointment Appointment [facility] [place] Work Phone: Start: 04-30-2017 End: 04-30-2017 Appointment Appointment [facility] Work Phone: Start: 04-30-2017 End: 04-30-2017 Appointment Appointment [facility] Work Phone: Start: 04-30-2017 End: 04-30-2017 Radex ankle complete minimum 3 views X-Ray, Ankle [facility] Work Phone: Start: 03-14-2017 End: 03-14-2017 Radex ankle complete minimum 3 views X-Ray, Ankle [facility] Work Phone: Start: 03-14-2017 End: 03-14-2017 Appointment Appointment [facility] Work Phone: Start: 02-24-2017 End: 02-24-2017 Radex ankle complete minimum 3 views X-Ray, Ankle [facility] Work Phone: Start: 02-24-2017 End: 02-24-2017 Appointment Appointment [facility] Work Phone: Start: 01-31-2017 End: 01-31-2017 [facility] Work Phone: Start: 01-31-2017 End: 01-31-2017 Follow Up Appt 6 months Follow Up Appt 6 months [facility] Work Phone: Start: 01-31-2017 End: 01-31-2017 Appointment Appointment [facility] Work Phone: Start: 01-31-2017 End: 01-31-2017 [facility] [place] Work Phone: Start: 01-31-2017 End: 01-31-2017 Follow Up Appt 6 months Follow Up Appt 6 months [facility] [place] Work Phone: Start: 01-27-2017 End: 01-27-2017 Appointment Appointment [facility] Work Phone: Start: 01-17-2017 End: 01-17-2017 Appointment Appointment [facility] [place] Work Phone: Start: 01-17-2017 End: 01-17-2017 Appointment Appointment [facility] [place] Work Phone: Start: 10-09-2016 End: 10-09-2016 Follow Up Appt 3 months Follow Up Appt 3 months [facility] Work Phone: Start: 10-09-2016 End: 10-09-2016 Pulmonary Function Test - complete Pulmonary Function Test - complete [facility] Work Phone: Start: 10-09-2016 End: 10-09-2016 Pulmonary stress test/simple Pulmonary stress testing; simple (eg, 6-minute walk) [facility] Work Phone: Start: 10-09-2016 End: 10-09-2016 Retitration with follow up (patient on CPAP currently) Retitration with follow up (patient on CPAP currently) [facility] Work Phone: Start: 10-09-2016 End: 10-09-2016 Appointment Appointment [facility] [place] Work Phone: Start: 10-09-2016 End: 10-09-2016 Follow Up Appt 3 months Follow Up Appt 3 months [facility] [place] Work Phone: Start: 10-09-2016 End: 10-09-2016 Pulmonary Function Test - complete Pulmonary Function Test - complete [facility] [place] Work Phone: Start: 10-09-2016 End: 10-09-2016 Pulmonary stress test/simple Pulmonary stress testing; simple (eg, 6-minute walk) [facility] Work Phone: Start: 10-09-2016 End: 10-09-2016 Retitration with follow up (patient on CPAP currently) Retitration with follow up (patient on CPAP currently) [facility] [employer] Phone: Start: 10-19-2015 COLORECTAL CANCER SCREENING COLORECTAL CANCER SCREENING [facility] Start: 10-19-2015 FECAL OCCULT BLOOD FECAL OCCULT BLOOD [facility] Start: 03-23-2015 SHINGRIX VACCINE (2 of 3) SHINGRIX VACCINE (2 of 3) [facility] Start: 03-23-2015 Zoster Vaccines (2 of 3) Zoster Vaccines (2 of 3) [facility] Start: 2014 RSV Immunization for Adults (1 - Risk 60-74 years 1-dose series) RSV Immunization for Adults (1 - Risk 60-74 years 1-dose series) [facility] Start: 12-31-2013 Pneumococcal Vaccine: 65+ Years (2 of 2 - PCV) Pneumococcal Vaccine: 65+ Years (2 of 2 - PCV) [facility] Start: 12-31-2013 PNEUMOCOCCAL: 65+ (2 - PCV) PNEUMOCOCCAL: 65+ (2 - PCV) [facility] Start: 08-04-1999 COLOGUARD (FIT-DNA) COLOGUARD (FIT-DNA) [facility] Start: 08-04-1999 Colonoscopy COLONOSCOPY [facility] Start: 08-04-[address] COLONOGRAPHY [facility] Start: 08-04-1999 SIGMOIDOSCOPY SIGMOIDOSCOPY [facility] Start: 1972 ANNUAL PCP TEAM CHRONIC DISEASE VISIT ANNUAL PCP TEAM CHRONIC DISEASE VISIT [facility] Start: 1972 Diabetes mellitus screening Diabetes Screening [facility] Start: 1972 HEPATITIS C SCREENING HEPATITIS C SCREENING [facility] Start: 1972 Hepatitis C screening Hepatitis C Screening [facility] Start: 1972 SPIROMETRY SPIROMETRY [facility] Start: 1966 Adult depression screening assessment DEPRESSION SCREENING [facility] Start: 1966 Depression Monitoring Depression Monitoring [facility] Start: 08-04-1959 COVID-19 VACCINE (#1) COVID-19 VACCINE (#1) [facility] Start: 08-04-1959 COVID-19 VACCINE (1) COVID-19 VACCINE (1) [facility] Start: 1954 Lipid panel Lipid Panel [facility] Start: 1954 Medicare Annual Wellness (AWV) Medicare Annual Wellness (AWV) [facility] Start: 1954 Screening for malignant neoplasm of colon [facility] Start: 1954 Screening for osteoporosis Bone Density Scan [facility] Start: 1954 Thyroid stimulating hormone measurement TSH Level [facility] Alanine aminotransfe rase [Enzymatic activity/volume] in Serum or Plasma [facility] Albumin [Mass/volume ] in Serum or Plasma [facility] Alkaline phosphatase [Enzymatic activity/volume] in Serum or Plasma [facility] Anion gap in Serum o r Plasma [facility] Bacteria identified in Lower respiratory specimen by Aerobe culture Respiratory culture and Stain Microbiology Routine Lung mass Mediastinal adenopathy 04/26/2024 10:16 AM EST [facility] Bilirubin, total measurement [facility] Brnschsc tndsc ebus dx/tx intervention perph les ENDOBRONCHIAL ULTRASOUND BRONCHOSCOPY Lung mass Mediastinal adenopathy [facility] Bronchoscopy w/cptr- asst image-guided navigation ELECTROMAGNETIC NAVIGATIONAL BRONCHOSCOPY Lung mass Mediastinal adenopathy [facility] Gastroenterology BUN/Creatinine ratio [facility] Calcium [Mass/volume ] in Serum or Plasma [facility] Carbon dioxide, tota l [Moles/volume] in Central venous blood [facility] Colonoscopy [facility] Cortisol [Mass/volum e] in Serum or Plasma [facility] Creatinine [Mass/vol ume] in Serum or Plasma [facility] CT Chest [facility] CT Chest [facility] CT Chest and Abdomen W contrast IV [facility] CT Chest and Abdomen W contrast IV [facility] CT Chest and Abdomen W contrast IV [facility] End: 04-21-2024 CT Chest WO contrast [facility] Comment on above: Once for 1 Occurrences starting 04/21/20 until 04/21/2024 Fine needle aspiration [facility] Comment on above: Release Upon Ordering for 1 Occurrences starting 04/26/2024, 1 completed Fungus identified in Unspecified specimen by Culture [facility] Comment on above: Release Upon Ordering for 1 Occurrences starting 04/26/2024 Fungus identified in Unspecified specimen by Fungus stain [facility] Comment on above: Release Upon Ordering for 1 Occurrences starting 04/26/2024 Glucose [Mass/volume ] in Serum or Plasma [facility] Magnesium measurement [facility] Magnesium measurement [facility] Measurement of renal function [facility] MR Brain WO and W contrast IV [facility] MR Brain WO and W contrast IV [facility] MR Brain WO and W contrast IV [facility] MR Brain WO and W contrast IV [facility] Mycobacterium sp identified in Unspecified specimen by Organism specific culture [facility] Comment on above: Release Upon Ordering for 1 Occurrences starting 04/26/2024 Non-Gynecologic Cytology [facility] Comment on above: Release Upon Ordering for 1 Occurrences starting 04/26/2024 Patient referral [facility] Work Phone: Potassium measurement [facility] Serum chloride measurement [facility] Serum inorganic phosphate measurement [facility] Serum inorganic phosphate measurement [facility] Sodium measurement [facility] Tissue exam [facility] Comment on above: Release Upon Ordering for 1 Occurrences starting 04/26/2024, 1 completed Total protein measurement [facility] Urea nitrogen [Mass/volume] in Serum or Plasma [facility] End: 04-26-2024 XR Chest Single view [facility] Work Phone: Comment on above: Once for 1 Occurrences starting 04/26/20 until 04/26/2024 [facility] Immunizations Immunization Date Immunization Notes Care Provider Saundra zavaleta 04-06-2024 Seasonal trivalent influenza vaccine, adjuvanted, preservative free Oscar BRYANT Work Phone: [facility] 11-13-2020 tetanus toxoid, redu crispin diphtheria toxoid, and acellular pertussis vaccine, adsorbed Dr. Fco Mccarthy Work Phone: [facility] 01-20-2017 tetanus toxoid, redu crispin diphtheria toxoid, and acellular pertussis vaccine, adsorbed Dr. Fco Mccarthy Work Phone: [facility] 04-12-2015 influenza virus vacc ine, unspecified formulation Screen [facility] 01-26-2015 zoster vaccine, live Screen [facility] 02-24-2014 influenza, seasonal, injectable Screen [facility] 11-25-2013 tetanus toxoid, redu crispin diphtheria toxoid, and acellular pertussis vaccine, adsorbed [facility] 04-12-2013 influenza virus vacc ine, unspecified formulation [facility] 12-31-2012 pneumococcal polysaccharide vaccine, 23 valent [facility] 04-02-2010 influenza virus vacc ine, unspecified formulation [facility] 04-13-2009 novel influenza-H1N1 -09, all formulations Screen [facility] Payers Date Payer Category Payer Self-pay [id number] 2019 Private Health Insurance [employer]ET[employer] A ETNA MEDICARE SUPPLEMENT [id number] 2019-Present [phone] [address] [address] [place] [address] Indemnity [id number] 2019 Medicare MEDICARE MEDICAR E A AND B [id number] 2019-Present [phone] [place] [address] Medicare [id number] 2019 Medicare MEDICARE PART A AND B [id number] 5 2019 Medicare [id number] 2005 Commercial Managed C are - HMO [employer] [id number] 5 2005 Private Health Insurance [id number] [place] [facility] [place] [id number] Unknown [id number] 2.16.840.1.923711.3.579 .2.462 Unknown [id number] 2.16.840.1.726308.3.579 .2.462 Unknown [id number] 2.16840.1.772128.3.579 .2.462 Unknown [id number] 2.16840.1.375060.3.579 .2.462 Unknown [id number] 2.16840.1.278420.3.579 .2.462 Unknown [id number] 2.16840.1.114967.3.579 .2.462 Unknown [id number] 2.16.840.1.755149.3.579 .2.462 Unknown [id number] 2.16.840.1.231666.3.579 .2.462 Unknown [id number] 2.16.840.1.580306.3.579 .2.462 Unknown [id number] 2.16.840.1.111226.3.579 .2.462 Unknown [id number] 2.16.840.1.363509.3.579 .2.462 Unknown [id number] 2.16.840.1.127643.3.579 .2.462 Unknown [id number] 2.16.840.1.467755.3.579 .2.462 Unknown [id number] 2.16.840.1.566552.3.579 .2.462 Unknown [id number] 2.16.840.1.602777.3.579 .2.462 Unknown [id number] 2.16.840.1.975015.3.579 .2.462 Unknown [id number] 2.16.840.1.251821.3.579 .2.462 Unknown [id number] 2.16.840.1.860767.3.579 .2.462 Unknown [id number] 2.16.840.1.485477.3.579 .2.462 Unknown [id number] 2.16.840.1.482749.3.579 .2.462 Unknown [id number] 2.16.840.1.419767.3.579 .2.462 Unknown [id number] 2.16.840.1.703931.3.579 .2.462 Unknown [id number] 2.16.840.1.036145.3.579 .2.462 Unknown [id number] 2.16.840.1.989174.3.579 .2.462 Unknown [id number] 2.16.840.1.732751.3.579 .2.462 Unknown [id number] 2.16.840.1.895143.3.579 .2.462 Unknown [id number] 2.16.840.1.290342.3.579 .2.462 Unknown [id number] 2.16.840.1.956596.3.579 .2.462 Unknown [id number] 2.16.840.1.635148.3.579 .2.462 Unknown [id number] 2.16.840.1.349154.3.579 .2.462 Unknown [id number] 2.16.840.1.053427.3.579 .2.462 Unknown [id number] 2.16.840.1.568681.3.579 .2.462 Unknown [id number] 2.16.840.1.064727.3.579 .2.462 Unknown [id number] 2.16.840.1.038390.3.579 .2.462 Unknown [id number] 2.16.840.1.471137.3.579 .2.462 Unknown [id number] 2.16.840.1.063564.3.579 .2.462 Unknown [id number] 2.16.840.1.459650.3.579 .2.462 Unknown [id number] 2.840.1.737306.3.579 .2.462 Unknown [id number] 2.840.1.619390.3.579 .2.462 Unknown [id number] 2.840.1.808787.3.579 .2.462 Unknown [id number] 2.840.1.614486.3.579 .2.462 Unknown [id number] 2.16840.1.334507.3.579 .2.462 Unknown [id number] 2.840.1.785926.3.579 .2.462 Unknown [id number] 2.16840.1.688165.3.579 .2.462 Unknown [id number] 2.16.840.1.200279.3.579 .2.462 Unknown [id number] 2.16.840.1.342639.3.579 .2.462 Unknown [id number] 2.16.840.1.817202.3.579 .2.462 Unknown [id number] 2.16840.1.434014.3.579 .2.462 Unknown [id number] 2.16.840.1.060959.3.579 .2.462 Unknown [id number] 2.16.840.1.652580.3.579 .2.462 Unknown [id number] 2.16.840.1.182325.3.579 .2.462 Unknown [id number] 2.16.840.1.730141.3.579 .2.462 Unknown [id number] 2.16.840.1.177212.3.579 .2.462 Unknown [id number] 2.16.840.1.623509.3.579 .2.462 Unknown [id number] 2.840.1.064245.3.579 .2.462 Unknown [id number] 2.840.1.577126.3.579 .2.462 Unknown [id number] 2.840.1.429874.3.579 .2.462 Unknown [id number] 2.840.1.689789.3.579 .2.462 Unknown [id number] 2.16.840.1.137693.3.579 .2.462 Unknown [id number] 2.16.840.1.049331.3.579 .2.462 Unknown [id number] 2.840.1.388709.3.579 .2.462 Unknown [id number] 2.840.1.140062.3.579 .2.462 Unknown [id number] 2.16840.1.397381.3.579 .2.462 Unknown [id number] 2.16.840.1.524236.3.579 .2.462 Unknown [id number] 2.16.840.1.869116.3.579 .2.462 Unknown [id number] 2.16.840.1.571405.3.579 .2.462 Unknown [id number] 2.16840.1.152813.3.579 .2.462 Unknown [id number] 2.16.840.1.200904.3.579 .2.462 Unknown [id number] 2.16840.1.452313.3.579 .2.462 Unknown [id number] 2.16.840.1.152367.3.579 .2.462 Unknown [id number] 2.16840.1.665462.3.579 .2.462 Unknown [id number] 2.16840.1.168942.3.579 .2.462 Unknown [id number] 2.16840.1.150850.3.579 .2.462 Social History Date Type Detail Facility Tobacco smoking status FLIS Smokes tobacco daily [facility] End: 06-02-2014 History of tobacco use Cigarette Smoker [facility] Start: 05-04-2015 Alcohol intake 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) [facility] Start: 08-26-2013 Tobacco Comment 6 cigarettes a day,started smoking 19yo, 1-2PPD usually [facility] Start: 1955 Sex Assigned At Not on file [facility] Start: 09-11-2021 End: 11-07-2021 Exposure to SARS-CoV-2 (event) Not sure [facility] Start: 10-03-2021 End: 06-25-2023 Tobacco smoking status FLIS Unknown if ever smoked [facility] Start: 06-19-2020 Non-smoker [facility] Start: 1955 Sex Assigned At Female [facility] Start: 04-16-2024 End: 07-13-2024 Tobacco smoking status NHIS Ex-smoker [facility] End: 06-02-2014 History of tobacco use Current smoker [facility] Start: 04-16-2024 Tobacco use and exposure Smokeless tobacco non-user [facility] Start: 04-16-2024 End: 04-26-2024 History of Social function [facility] Start: 04-16-2024 End: 04-26-2024 Tobacco use panel [facility] Start: 04-07-2024 End: 08-19-2024 Sex Female (finding) [facility] NEGATED: Highlighted row [facility] Medical Equipment Procedure Code Equipment Code Equipment Origin al Text Equipment Identifier Dates Insertion, vascular access port ([id number]) [id number] FDA Start: 05-13-2024 Goals Date Patient Goal Desired Activity /State Functional Status Date Assessment Result Facility 07-05-2024 Functional status Ambulates;Chair [facility] Work Phone: 06-01-2024 Functional status Ambulates;Chair [facility] Work Phone: Mental Status Date Assessment Result Facility 07-28-2024 Cognitive function Awake;Alert;A ppropriate;Fol lows Commands [facility] Work Phone: 07-05-2024 Cognitive function Voice/Name [facility] Work Phone: 06-01-2024 Cognitive function Voice/Name [facility] Work Phone: 05-13-2024 Cognitive function Awake;Alert [facility] Work Phone: 05-13-2024 Cognitive function Voice/Name [facility] Work Phone: Clinical Notes 05-06-2008 to 02-15-2025 Note Date & Type Note Facility 02-15-2025 Progress note [facility] 02-15-2025 Progress note Note Date/Time February 15, 2025 1:57pm [facility] [address] [place] [id number] OFFICE VISIT Date of Service: 02/15/25 1325 MR#: [id number] Acct: [id number] Name: ANDREA CALIX Rep #: [id number] : 1955 From: Nicolas sterling DO Age/Sex: 69/F Location: [facility] Status: Signed Intake Vital Signs 11/16/24 13:38 02/01/25 13:40 02/15/25 13:30 02/15/25 13:33 Height 5 ft 4 in 5 ft 4 in 5 ft 4 in 5 ft 4 in Weight: 209 lb 6 oz BMI 35.9 BP 106/66 Blood Pressure Location Rt brachial Position Sitting Respiration 18 Pulse 81 Pulse Source Monitor Temp 97.1 F L Temperature Source Temporal Artery Pulse Oximetry (%) 95 Oxygen Delivery Method room air Intake Is patient in pain?: No Allergies vaccine adjuvant system, AS01B liposomal (From Shingrix (PF)) Allergy (Verified 02/15/25 13:29) Rash varicella-zoster virus glycoprotein E, recombinant (From Shingrix (PF)) Allergy (Verified 02/15/25 13:29) Rash Medications ?Medication ?Instructions ?Recorded ?Confirmed ?Type duloxetine 60 mg capsule,delayed 60 mg PO DAILY depres mana 11/25/13 02/15/25 History release lovastatin 40 mg tablet 40 mg PO DAILY hld 11/25/13 02/15/25 History cholecalciferol (vitamin D3) 125 5,000 unit PO DAILY s upplement 06/25/23 02/15/25 History mcg (5,000 unit) capsule levothyroxine 100 mcg tablet 100 mcg PO DAILY thyroid 06/25/23 02/15/25 History metformin 1,000 mg tablet 1,000 mg PO BID dm 06/25/23 02/15/25 History acetaminophen 500 mg capsule 500 mg PO Q6H PRN pain 02/15/25 History lidocaine-prilocaine 2.5 %-2.5 % 1 applic topical ONCE PRN port 05/17/24 Rx topical cream access 30 days #30 grams omeprazole 20 mg capsule,delayed 20 mg PO QDAY 08/30/ 5 02/15/25 History release fluticasone fur. 100 mcg-umeclid 1 inh inhalation ARNALDO Y asthma #3 ea 10/08/24 02/15/25 Rx 62.5 mcg-vilant 25 mcg inhalat.powder (Trelegy Ellipta) albuterol sulfate 90 mcg/actuation 2 puff inhalation Q 6H asthma #18 10/11/24 02/15/25 Rx aerosol inhaler (Ventolin HFA) grams L.acidophil,salivari-Bifido 1 cap PO BID 11/04/2401/31 History bifidum-Strep thermoph 175 mg capsule peg 3350-electrolytes 236 4,000 ml PO ONCE #4,000 mL 0 02/02/25 02/15/25 Rx gram-22.74 gram-6.74 gram-5.86 gram solution Have you fallen in the past year?: Yes PFSH [facility] Medical History Fatigue Encounter for antineoplastic immunotherapy History of lipoma Right upper limb pain Hypomagnesemia Drug induced neutropenia Hypokalemia Diarrhea Encounter for chemotherapy management Encounter for education Wears glasses Wears dentures Post-menopausal Cancer Thyroid disease Diabetes Arthritis Anemia High cholesterol Heartburn Gastric reflux Former smoker CPAP (continuous positive airway pressure) dependence Sleep apnea Leg cramps History of edema History of echocardiogram History of stress test Regional lymph node metastasis present Primary fibromyalgia syndrome Chondromalacia Chronic obstructive lung disease Depression Hyperlipidemia Vitamin D deficiency Hypothyroidism Localized swelling, mass and lump, unspecified MARTELL (obstructive sleep apnea) Dyspnea Right ankle pain Home Medications ?Medication ?Instructions ?Recorded ?Last Taken ?Type duloxetine 60 mg capsule,delayed 60 mg PO DAILY depres mana 11/25/13 05/12/24 History release lovastatin 40 mg tablet 40 mg PO DAILY hld 11/25/13 05/12/24 History cholecalciferol (vitamin D3) 125 5,000 unit PO DAILY s upplement 06/25/23 05/12/24 History mcg (5,000 unit) capsule levothyroxine 100 mcg tablet 100 mcg PO DAILY thyroid 06/25/23 05/12/24 History metformin 1,000 mg tablet 1,000 mg PO BID dm 06/25/23 05/12/24 History acetaminophen 500 mg capsule 500 mg PO Q6H PRN pain Unknown History lidocaine-prilocaine 2.5 %-2.5 % 1 applic topical ONCE PRN port 05/17/24 Unknown Rx topical cream access 30 days #30 grams omeprazole 20 mg capsule,delayed 20 mg PO QDAY 5 Unknown History release fluticasone fur. 100 mcg-umeclid 1 inh inhalation ARNALDO Y asthma #3 ea 10/08/24 Unknown Rx 62.5 mcg-vilant 25 mcg inhalat.powder (Trelegy Ellipta) albuterol sulfate 90 mcg/actuation 2 puff inhalation Q 6H asthma #18 10/11/24 Unknown Rx aerosol inhaler (Ventolin HFA) grams L.acidophil,salivari-Bifido 1 cap PO BID 11/04/24 Unkn own History bifidum-Strep thermoph 175 mg capsule peg 3350-electrolytes 236 4,000 ml PO ONCE #4,000 mL 0 02/02/25 Unknown Rx gram-22.74 gram-6.74 gram-5.86 gram solution Allergy/AdvReac Type Severity Reaction Status Date / Time vaccine adjuvant system, Allergy Rash Verified 02/15/25 13:29 AS01B liposomal (From Shingrix (PF)) varicella-zoster virus Allergy Rash Verified 02/15/25 13:29 glycoprotein E, recombinant (From Shingrix (PF)) Family History Mother Heart disease CVA (cerebral vascular accident) Brain tumor Father Cancer Stomach Heart disease Surgical History History of colonoscopy History of ankle surgery History of cataract extraction Social History Smoking Status: Former smoker quit date: 06/02/16 pack-years: 63 Tobacco: How many years used: 42 Electronic Cigarette Use: not used how long ago did patient quit smokin years second hand exposure: Yes quit status: quit date established alcohol intake: never substance use type: does not use Diagnosis: Andrea Calix is a 69-year-old female diagnosed with limited stage small celllung cancer status post CT chest without contrast (02/24/2024), PET scan (03/30/2024), PFTs (04/14/2024), bronchoscopy with EBUS and biopsy (04/26/2024), and MRI brain (05/09/2024). From 05/17/2024 ? 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 History of Present Illness: 02/24/2024: CT chest without IV contrast was performed.? This demonstrated interval increase in size of a noncalcified nodule in the lung apex within the left lung measuring 1 x 0.8 cm compared to 6 x 4 mm on the previous exam.? Thereis a stable low-density lesion in the anterior mediastinum measuring 2 x 2 x 1 cm which may represent a cyst.? No clear adenopathy is appreciated. 03/30/2024: PET scan was performed.? This demonstrated increased FDG avidity noted in the left upper lobe lung field for filling quantitative criteria for viable neoplasm.? There is also noted to be anterior middle mediastinal AP window lymphadenopathy consistent with malignant transformation.? No other evidence of disease is noted. 04/14/2024: PFTs performed.? DLCO 72%, FEV1 90% 04/26/2024: Patient completed bronchoscopy.? 4L is positive for small cell lung cancer.? 11R, 4R, 7, 11L are all negative. 05/09/2024: MRI brain with and without contrast was performed.? This demonstratedno evidence of metastatic disease. From 05/17/2024 ? 06/10/2024: received definitive chemoradiation consisting of 5400 cGy delivered in 30 fractions twice daily with at least 4500 cGy close goingto PTV that is overlapping or near esophagus and heart. She was treated using a VMAT plan with 6 MV photons. 08/10/2024: Patient completed brain MRI with and without contrast. This demonstrated no evidence of metastatic disease or other pathology. 08/23/2024: Patient completed CT chest and abdomen with contrast.? This demonstrated decreased size of the left apical pulmonary nodule measuring approximately 0.8 x 0.5 cm previously measured 1 x 0.8 cm, persistent groundglass opacity within the anterior left upper lobe which is indeterminate and may represent infectious/inflammatory pneumonitis.? No other abnormalities are noted and no metastatic disease is appreciated. 11/10/2024: Patient completed brain MRI with and without contrast.? This demonstrated no evidence of abnormality. 12/24/2024: Patient completed CT chest and abdomen with contrast. This demonstrates increased markings with bronchiectasis and irregular soft tissue nodules in the left lung apex and left upper lobe which may represent postradiation pneumonitis/fibrosis. There is a 9.4 mm pleural-based nodule in the anterior aspect of the right lower lobe adjacent to the right minor fissure. 02/10/2025: Patient completed brain MRI with and without contrast. This demonstrated no evidence of metastatic disease. Radiation Treatment History: 1) From 05/17/2024 ? 06/10/2024: received definitive chemoradiation consisting of 5400 cGy delivered in 30 fractions twice daily with at least 4500 cGy close going to PTV that is overlapping or near esophagus and heart. She was treated using a VMAT plan with 6 MV photons. Interval History: Patient presents for follow-up approximately 8 months after completing definitive chemoradiation. She reports doing well overall. She reports stable breathing with dry cough, no hemoptysis. She does not have any increased shortness of breath compared to her baseline. No dysphagia or odynophagia. Sheis eating and drinking well without difficulty. She denies unexpected weight changes. Energy level has remained relatively stable but does have some fatigue. She completed chemotherapy after a delay to cycle 4 from being admitted. She denies chest pain. She denies bone pain. She denies headaches, vision changes, focal weakness/numbness, nausea/vomiting. Taking durva without difficulty. She continues to complete all ADLs without difficulty and denies having other problems or concerns at this time. Review of Systems: A 12-point review of systems was completed and was negative except for what is noted in the HPI/Interval History and by the nurse. Physical Exam: Weight: 209 lbs ECO KARNOFSKY SCORE: 70% CONSTITUTIONAL: Well-developed, well-nourished, and in no apparent distress. NECK: Supple, no thyromegaly, and non-tender. Trachea midline. No cervical or supraclavicular adenopathy noted. CARDIAC: Regular rate and rhythm. Normal S1, S2. No murmurs, rubs, or gallops. PULMONARY/CHEST: Lungs are clear to auscultation and percussion bilaterally. No wheezes, rhonchi, or crackles noted. No increased work of breathing. EXTREMITIES: Full range of motion in all four extremities. No evidence of edema. PSYCHIATRIC: Appropriate mood and affect for the clinical situation. Imaging: As per HPI Laboratory Data: None Assessment & Plan Assessment/Plan (1) Small cell lung cancer, left upper lobe: PLAN: Plan Assessment: Andrea Calix is a 69-year-old female diagnosed with limited stage small celllung cancer status post CT chest without contrast (02/24/2024), PET scan (03/30/2024), PFTs (04/14/2024), bronchoscopy with EBUS and biopsy (04/26/2024),and MRI brain (05/09/2024). From 05/17/2024 ? 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 Plan: Patient presents for follow-up approximately 9 months after completing definitive chemoradiation. She completed 4 cycles of chemotherapy and CTs 08/23 showed very good clinical response, now taking Durva and tolerating well. MRIbrain shows no evidence of metastatic disease. Clinically she is doing very well and does not appear to have any persistent toxicities from radiation. Planning MRI q3 months without PCI. Colonoscopy planned for some rectal bleeding. I will plan to have her return for follow-up after she completes brain MRI in 3 months. She was instructed to call any further questions or concerns in the interim. Thank you for allowing me to participate in the management and care of your patient. If I may answer any questions in the interim, please do not hesitate tocontact me at any time. Nicolas Barclay DO, MS Behavioral Services Tech, Department of Radiation Oncology [facility] Coding Level of Care Code Off vis,est,level 3 Diagnoses Small cell lung cancer, left upper lobe C34.12 02/15/25 9207 <Electronically signed by Nicolas Barclay DO> Date _ Nicolas Barclay DO [facility] Signature: Date (if applicable) CC: ~ [facility] Work Phone: 1(494) 979-733609-02-2025 [facility] [address] [place] [address]. [address] [place] [address] OFFICE VISIT Date of Service: 02/01/25 MR#: [id number] Acct: [id number] Name: ANDREA CALIX Rep #: [id number] : 1955 Provider: Dr. Keshia Prabhakar MD Age/Sex: 69/F Location: [facility] Status: Signed Intake Vital Signs 01/26/25 12:06 02/01/25 13:40 Height 5 ft 4 in 5 ft 4 in Weight: 209 lb 6 oz 211 lb BMI 35.9 36.2 BP 130/85 H 105/57 L Blood Pressure Location Lt brachial Rt brachial Position Sitting Sitting Respiration 16 18 Pulse 77 84 Pulse Source Monitor Monitor Temp 97.9 F Pulse Oximetry (%) 95 96 Oxygen Delivery Method room air room air Intake Visit Reasons: BLOOD IN STOOL Chief Complaint: blood stool Is patient in pain?: No Allergies vaccine adjuvant system, AS01B liposomal (From Shingrix (PF)) Allergy (Verified 02/01/25 13:41) Rash varicella-zoster virus glycoprotein E, recombinant (From Shingrix (PF)) Allergy (Verified 02/01/25 13:41) Rash Medications ?Medication ?Instructions ?Recorded ?Confirmed ?Type duloxetine 60 mg capsule,delayed 60 mg PO DAILY depres mana 11/25/13 02/01/25 History release lovastatin 40 mg tablet 40 mg PO DAILY hld 11/25/13 02/01/25 History cholecalciferol (vitamin D3) 125 5,000 unit PO DAILY s upplement 06/25/23 02/01/25 History mcg (5,000 unit) capsule levothyroxine 100 mcg tablet 100 mcg PO DAILY thyroid 06/25/23 02/01/25 History metformin 1,000 mg tablet 1,000 mg PO BID dm 06/25/23 02/01/25 History acetaminophen 500 mg capsule 500 mg PO Q6H PRN pain 02/01/25 History lidocaine-prilocaine 2.5 %-2.5 % 1 applic topical ONCE PRN port 05/17/24 02/01/25 Rx topical cream access 30 days #30 grams omeprazole 20 mg capsule,delayed 20 mg PO QDAY 5 02/01/25 History release fluticasone fur. 100 mcg-umeclid 1 inh inhalation ARNALDO Y asthma #3 ea 10/08/24 02/01/25 Rx 62.5 mcg-vilant 25 mcg inhalat.powder (Trelegy Ellipta) albuterol sulfate 90 mcg/actuation 2 puff inhalation Q 6H asthma #18 10/11/24 02/01/25 Rx aerosol inhaler (Ventolin HFA) grams L.acidophil,salivari-Bifido 1 cap PO BID 11/04/24 09/0 07/27 History bifidum-Strep thermoph 175 mg capsule Have you fallen in the past year?: No PFSH Medical History Fatigue Encounter for antineoplastic immunotherapy History of lipoma Right upper limb pain Hypomagnesemia Drug induced neutropenia Hypokalemia Diarrhea Encounter for chemotherapy management Encounter for education Wears glasses Wears dentures Post-menopausal Cancer Thyroid disease Diabetes Arthritis Anemia High cholesterol Heartburn Gastric reflux Former smoker CPAP (continuous positive airway pressure) dependence Sleep apnea Leg cramps History of edema History of echocardiogram History of stress test Regional lymph node metastasis present Primary fibromyalgia syndrome Chondromalacia Chronic obstructive lung disease Depression Hyperlipidemia Vitamin D deficiency Hypothyroidism Localized swelling, mass and lump, unspecified MARTELL (obstructive sleep apnea) Dyspnea Right ankle pain Surgical History History of colonoscopy History of ankle surgery History of cataract extraction Family History Mother Heart disease CVA (cerebral vascular accident) Brain tumor Father Cancer Stomach Heart disease Social History Smoking Status: Former smoker quit date: 06/02/16 pack-years: 63 Tobacco: How many years used: 42 Electronic Cigarette Use: not used how long ago did patient quit smokin years second hand exposure: Yes quit status: quit date established alcohol intake: never substance use type: does not use HPI HPI HPI: Patient is a 69-year-old female here with GI bleeding. I performed an EGD and colonoscopy in 2020 which was normal. The patient is here with dark blood per rectum. The patient does not note any abdominal pain. She says it has been going on for about a month. She denies nausea or vomiting. She does feel bloated. ROS General General: No weight change, appetite, fatigue, colon cancer, breast cancer or weakness HEENT HEENT: No difficulty swallowing, eye injury, eye surgery, swollen glands or hoarseness Endo Endocrine: Yes diabetes mellitus; No thyroid disease, thyroid cancer, Hair loss, heat intolerance or cold intolerance Skin Skin: No rash or changing moles Musc Musculoskeletal: Yes arthritis; No back problems, rheumatoid arthritis, gout or joint pain Cardio Cardiovascular: No murmur, pacemaker, heart disease, atrial fibrillation, high blood pressure, heart attack, heart stent, palpitations, shortness of breath with exertion or chest pain Psych Psychiatric: No depression, anxiety or hearing voices Resp Respiratory: Yes shortness of breath, Yes sleep apnea, No cough, Yes COPD, No asthma, No emphysema and No wheezing Gastro Gastrointestinal: No abdominal pain, No nausea or vomiting, No diarrhea, Yes constipation, Yes blood in stool, No acid reflux, Yes hemorrhoids, No ulcers, Nogallbladder problem and No black,tarry stools [place] Hematologic: No blood thinners, No blood disorders, No bleeding, No anemia and No blood clots Neuro Neurologic: No system reviewed and no additional complaints, except as documented, No as per HPI, No abnormal gait, No abnormal hearing, No abnormal movements, No abnormal speech, No behavioral changes, No burning sensations, No confusion, No convulsions, No disequilibrium, No dizziness, No localized weakness, No frequent falls, No headache(s), No lack of coordination, No loss ofvision, No memoryloss, Yes numbness, No other visual disturbances, No radicularpain, No restless legs, No sensory deficit, No syncope, Yes tingling, No tremor(s), No weakness and No other Exam Const General: cooperative Orientation: alert and oriented x3 [facility] Head: normal to inspection Neck Neck: normal visual inspection and full ROM Chest Chest palpation & inspection: normal inspection of the chest Resp Effort & Inspection: normal respiratory effort Auscultation: clear to auscultation bilaterally Cardio Rate: regular rate Rhythm: regular rhythm GI Inspection: non-distended Palpation: soft and nontender Skin General: no rashes or lesions noted Neuro General: patient alert and patient oriented x3 Extrem General: full ROM Psych Appearance: grossly normal Mental Status: mental status grossly normal Assessment and Plan Assessment and Plan (1) Blood in stool: Status: Acute Plan: The patient is having anemia and blood in the stool. I discussed performing EGDand colonoscopy to evaluate for the bleeding. It is possible that it is upper GI in nature as it is dark. I explained endoscopy in detail to the patient. I explained the risks includingbut not limited to stroke or heart attack with anesthesia, perforation of the GItract, bleeding, infection. I explained that any of these could necessitate further emergency surgery. The patient understands and all questions were answered sufficiently. The patient wishes to proceed with procedure. Nicola Prabhakar MD Pager: [facility] [address] [place] [address] [address] [place] [address] Office: Orders: Orders Colonoscopy Today EGD Today Coding Level of Care Code Off vis,est,level 3 Diagnoses Blood in stool K92.1 Clinical Quality Measures Falls Risk Screening/Assistive Devices Have you fallen in the past year?: No 02/01/25 1348 german MARSH> Date _ Nicola Prabhakar MD Cosigner Signature: Date (if applicable) CC: ~ [facility]09-02-2025 Progress note Author Nicola Prabhakar [facility] Services Note Date/Time February 01, 2025 1:48pm [address] [place] [address] OFFICE VISIT Date of Service: 02/01/25 MR#: [id number] Acct: [id number] Name: ANDREA CALIX Rep #: [id number] : 1955 Provider: Dr. Keshia Prabhakar MD Age/Sex: 69/F Location: [facility] Status: Signed Intake Vital Signs 01/26/25 12:06 02/01/25 13:40 Height 5 ft 4 in 5 ft 4 in Weight: 209 lb 6 oz 211 lb BMI 35.9 36.2 BP 130/85 H 105/57 L Blood Pressure Location Lt brachial Rt brachial Position Sitting Sitting Respiration 16 18 Pulse 77 84 Pulse Source Monitor Monitor Temp 97.9 F Pulse Oximetry (%) 95 96 Oxygen Delivery Method room air room air Intake Visit Reasons: BLOOD IN STOOL Chief Complaint: blood stool Is patient in pain?: No Allergies vaccine adjuvant system, AS01B liposomal (From Shingrix (PF)) Allergy (Verified 02/01/25 13:41) Rash varicella-zoster virus glycoprotein E, recombinant (From Shingrix (PF)) Allergy (Verified 02/01/25 13:41) Rash Medications ?Medication ?Instructions ?Recorded ?Confirmed ?Type duloxetine 60 mg capsule,delayed 60 mg PO DAILY depres mana 11/25/13 02/01/25 History release lovastatin 40 mg tablet 40 mg PO DAILY hld 11/25/13 02/01/25 History cholecalciferol (vitamin D3) 125 5,000 unit PO DAILY s upplement 06/25/23 02/01/25 History mcg (5,000 unit) capsule levothyroxine 100 mcg tablet 100 mcg PO DAILY thyroid 06/25/23 02/01/25 History metformin 1,000 mg tablet 1,000 mg PO BID dm 06/25/23 02/01/25 History acetaminophen 500 mg capsule 500 mg PO Q6H PRN pain 02/01/25 History lidocaine-prilocaine 2.5 %-2.5 % 1 applic topical ONCE PRN port 05/17/24 02/01/25 Rx topical cream access 30 days #30 grams omeprazole 20 mg capsule,delayed 20 mg PO QDAY 5 02/01/25 History release fluticasone fur. 100 mcg-umeclid 1 inh inhalation ARNALDO Y asthma #3 ea 10/08/24 02/01/25 Rx 62.5 mcg-vilant 25 mcg inhalat.powder (Trelegy Ellipta) albuterol sulfate 90 mcg/actuation 2 puff inhalation Q 6H asthma #18 10/11/24 02/01/25 Rx aerosol inhaler (Ventolin HFA) grams L.acidophil,salivari-Bifido 1 cap PO BID 11/04/2407/27 History bifidum-Strep thermoph 175 mg capsule Have you fallen in the past year?: No PFSH Medical History Fatigue Encounter for antineoplastic immunotherapy History of lipoma Right upper limb pain Hypomagnesemia Drug induced neutropenia Hypokalemia Diarrhea Encounter for chemotherapy management Encounter for education Wears glasses Wears dentures Post-menopausal Cancer Thyroid disease Diabetes Arthritis Anemia High cholesterol Heartburn Gastric reflux Former smoker CPAP (continuous positive airway pressure) dependence Sleep apnea Leg cramps History of edema History of echocardiogram History of stress test Regional lymph node metastasis present Primary fibromyalgia syndrome Chondromalacia Chronic obstructive lung disease Depression Hyperlipidemia Vitamin D deficiency Hypothyroidism Localized swelling, mass and lump, unspecified MARTELL (obstructive sleep apnea) Dyspnea Right ankle pain Surgical History History of colonoscopy History of ankle surgery History of cataract extraction Family History Mother Heart disease CVA (cerebral vascular accident) Brain tumor Father Cancer Stomach Heart disease Social History Smoking Status: Former smoker quit date: 06/02/16 pack-years: 63 Tobacco: How many years used: 42 Electronic Cigarette Use: not used how long ago did patient quit smokin years second hand exposure: Yes quit status: quit date established alcohol intake: never substance use type: does not use HPI HPI HPI: Patient is a 69-year-old female here with GI bleeding. I performed an EGD and colonoscopy in 2020 which was normal. The patient is here with dark blood per rectum. The patient does not note any abdominal pain. She says it has been going on for about a month. She denies nausea or vomiting. She does feel bloated. ROS General General: No weight change, appetite, fatigue, colon cancer, breast cancer or weakness HEENT HEENT: No difficulty swallowing, eye injury, eye surgery, swollen glands or hoarseness Endo Endocrine: Yes diabetes mellitus; No thyroid disease, thyroid cancer, Hair loss, heat intolerance or cold intolerance Skin Skin: No rash or changing moles Musc Musculoskeletal: Yes arthritis; No back problems, rheumatoid arthritis, gout or joint pain Cardio Cardiovascular: No murmur, pacemaker, heart disease, atrial fibrillation, high blood pressure, heart attack, heart stent, palpitations, shortness of breath with exertion or chest pain Psych Psychiatric: No depression, anxiety or hearing voices Resp Respiratory: Yes shortness of breath, Yes sleep apnea, No cough, Yes COPD, No asthma, No emphysema and No wheezing Gastro Gastrointestinal: No abdominal pain, No nausea or vomiting, No diarrhea, Yes constipation, Yes blood in stool, No acid reflux, Yes hemorrhoids, No ulcers, Nogallbladder problem and No black,tarry stools [place] Hematologic: No blood thinners, No blood disorders, No bleeding, No anemia and No blood clots Neuro Neurologic: No system reviewed and no additional complaints, except as documented, No as per HPI, No abnormal gait, No abnormal hearing, No abnormal movements, No abnormal speech, No behavioral changes, No burning sensations, No confusion, No convulsions, No disequilibrium, No dizziness, No localized weakness, No frequent falls, No headache(s), No lack of coordination, No loss ofvision, No memory loss, Yes numbness, No other visual disturbances, No radicularpain, No restless legs, No sensory deficit, No syncope, Yes tingling, No tremor(s), No weakness and No other Exam Const General: cooperative Orientation: alert and oriented x3 [facility] Head: normal to inspection Neck Neck: normal visual inspection and full ROM Chest Chest palpation & inspection: normal inspection of the chest Resp Effort & Inspection: normal respiratory effort Auscultation: clear to auscultation bilaterally Cardio Rate: regular rate Rhythm: regular rhythm GI Inspection: non-distended Palpation: soft and nontender Skin General: no rashes or lesions noted Neuro General: patient alert and patient oriented x3 Extrem General: full ROM Psych Appearance: grossly normal Mental Status: mental status grossly normal Assessment and Plan Assessment and Plan (1) Blood in stool: Status: Acute Plan: The patient is having anemia and blood in the stool. I discussed performing EGDand colonoscopy to evaluate for the bleeding. It is possible that it is upper GI in nature as it is dark. I explained endoscopy in detail to the patient. I explained the risks includingbut not limited to stroke or heart attack with anesthesia, perforation of the GItract, bleeding, infection. I explained that any of these could necessitate further emergency surgery. The patient understands and all questions were answered sufficiently. The patient wishes to proceed with procedure. Nicola Prabhakar MD Pager: [facility] [address] [place] [address], [address] [place] [address] Office: Orders: Orders Colonoscopy Today EGD Today Coding Level of Care Code Off vis,est,level 3 Diagnoses Blood in stool K92.1 Clinical Quality Measures Falls Risk Screening/Assistive Devices Have you fallen in the past year?: No 02/01/25 1348 <Electronically signed by Nicola porter MD> Date _ Nicola Prabhakar MD [facility] Signature: Date (if applicable) CC: ~ [facility] Work Phone: 1(436) [phone] [facility] [address] [address] OFFICE VISIT Date of Service: 01/26/25 1201 MR#: [id number] Acct: [id number] Name: ANDREA CALIX Rep #: [id number] : 1955 From: Maxi chau MD Age/Sex: 69/F Location: [facility] Status: Signed HPI Subjective Date of Service 01/26/25 Chief Complaint SCLC on treatment History of Present Illness 69-year-old female with small cell lung cancer. Disease was detected on lung cancer screening: November 26, [address]: IMPRESSION: New pulmonary nodules measuring up to 4 mm in the left upper lobe and 7 mm in the lingula. Lung-RADS category 4A. Recommend [address] follow-up. February 24, [address] chest: IMPRESSION: Interval increase in size of a noncalcified nodule left lung apex. Lung-RADS score: 4B - Very Suspicious. Recommend chest CT with or without contrast, PET/CT and/or tissue sampling depending on the probability of malignancy and comorbidities. April 26, 2024 bronchoscopy and EBUS at [facility]: A- lung, left upper lobe transbronchial FNA: Rare atypical cells cannot exclude neoplasm. B- mediastinal lymph node station 11R FNA: No malignant cells identified. C-mediastinal lymph node station 4R FNA: No malignant cells identified. D- mediastinal lymph node station 4L FNA: Positive for malignant cells, favor a high-grade neuroendocrine malignancy. E- mediastinal lymph node station 7 FNA: No malignant cells identified F-mediastinal lymph node station 11L FNA: No malignant cells identified. G-BAL left upper lobe cytology: Rare atypical cells April 30, 2024 PET/CT initial staging: IMPRESSION: 1. Enhanced labeled glucose defined in the left upper lung field, left upper lobe fulfills quantitative criteria for viable neoplasm with single point technique. Histopathologic analysis is recommended. (Marika et al, Annals of Internal Medicine, 138:724, 2003) 2. Increased FDG concentration noted in the anterior and middle mediastinum aorticopulmonary window fulfills quantitative criteria for malignant transformation. (Herminio et al, Journal of Clinical Oncology 16:2142, 1998) 3. Facilitated radiopharmaceutical manifest in the left and right lobe of the thyroid colloid does not fulfill quantitative criteria for primary thyroidal neoplastic transformation. Correlation with thyroid ultrasound may be of benefit. May 09, 2024 brain MRI staging: IMPRESSION: No MRI evidence of brain metastases. This is a negative MRI brain with and without contrast and no significant interval changes since 06/12/2010. August 10, 2024 brain MRI: IMPRESSION: No acute process or pathologic enhancement. August 23, 2024 CT chest and abdomen and treatment restaging: IMPRESSION: CT chest: 1. Decreased size of the left apical pulmonary nodule. 2. Persistent ground-glass opacification within the anterior left upper lobe, which is indeterminate in etiology and may represent infectious/inflammatory pneumonitis. Continued attention on follow- upimaging recommended. Treatment summary and response: * 05/17/2024 ? 06/10/2024: received definitive chemoradiation consisting of 5400 cGy delivered in 30 fractions twice daily with at least 4500 cGy close going to PTV that is overlapping or near esophagus and heart. She was treated using a VMAT plan with 6 MV photons. Patient received her first cycle of systemic chemotherapy (cisplatin etoposide) concomitantly. * June 14?July carboplatin and etoposide (3 cycles). * Durvalumab maintenance for 2 years August 2024-. [facility] Medical History Fatigue Encounter for antineoplastic immunotherapy History of lipoma Right upper limb pain Hypomagnesemia Drug induced neutropenia Hypokalemia Diarrhea Encounter for chemotherapy management Encounter for education Wears glasses Wears dentures Post-menopausal Cancer Thyroid disease Diabetes Arthritis Anemia High cholesterol Heartburn Gastric reflux Former smoker CPAP (continuous positive airway pressure) dependence Sleep apnea Leg cramps History of edema History of echocardiogram History of stress test Regional lymph node metastasis present Primary fibromyalgia syndrome Chondromalacia Chronic obstructive lung disease Depression Hyperlipidemia Vitamin D deficiency Hypothyroidism Localized swelling, mass and lump, unspecified MARTELL (obstructive sleep apnea) Dyspnea Right ankle pain Surgical History History of colonoscopy History of ankle surgery History of cataract extraction Family History Mother Heart disease CVA (cerebral vascular accident) Brain tumor Father Cancer Stomach Heart disease Social History Smoking Status: Former smoker quit date: 06/02/16 pack-years: 63 Tobacco: How many years used: 42 Electronic Cigarette Use: not used how long ago did patient quit smokin years second hand exposure: Yes quit status: quit date established alcohol intake: never substance use type: does not use ROS Constitutional Constitutional: Reports systems reviewed and no addt'l complaints, except as documented; Denies fatigue, fever(s) or weight loss Eyes Eyes: Reports systems reviewed and no addt'l complaints, except as documented; Denies change in vision ENT HEENT: Reports systems reviewed and no addt'l complaints, except as documented; Denies mouth lesions Cardiovascular Cardiovascular: Reports systems reviewed and no addt'l complaints, except as documented; Denies chest pain with activity or edema Respiratory/Chest Respiratory/Chest: Reports cough and dyspnea on exertion; Denies hemoptysis Gastrointestinal Gastrointestinal: Reports systems reviewed and no addt'l complaints, except as documented, hematochezia, hemorrhoids and other Details: Has not had rectal bleeding from the hemorrhoids for a long time and has recently recurred in December 2024 ; Denies change in bowel habits, diarrhea or melena Genitourinary Genitourinary: Reports systems reviewed and no addt'l complaints, except as documented, urinary incontinence and other Details: Stress and urgency incontinence ; Denies hematuria Musculoskeletal Musculoskeletal: Reports systems reviewed and no addt'l complaints, except as documented and arthralgias Integumentary Integumentary: Reports systems reviewed and no addt'l complaints, except as documented; Denies new lesions Neurologic Neurologic: Reports systems reviewed and no addt'l complaints, except as documented; Denies focal weakness or paresthesias Psychiatric Psychiatric: Reports systems reviewed and no addt'l complaints, except as documented Endocrine Endocrinology: Reports systems reviewed and no addt'l complaints, except as documented Hematologic/Lymphatic Hematologic/Lymphatic: Reports systems reviewed and no addt'l complaints, exceptas documented Allergic/Immunologic Allergic/Immunologic: Reports systems reviewed and no addt'l complaints, except as documented Intake Vital Signs 12/01/24 11:36 01/26/25 12:02 01/26/25 12:06 Height 5 ft 4 in 5 ft 4 in 5 ft 4 in Weight: 94.971 kg BMI 35.9 BP 130/85 H Blood Pressure Location Lt brachial Position Sitting Respiration 16 Pulse 77 Pulse Source Monitor Temp 97.9 F Temperature Source Temporal Artery Pulse Oximetry (%) 95 Oxygen Delivery Method room air Intake Is patient in pain?: No Allergies vaccine adjuvant system, AS01B liposomal (From Shingrix (PF)) Allergy (Verified 01/26/25 12:06) Rash varicella-zoster virus glycoprotein E, recombinant (From Shingrix (PF)) Allergy (Verified 01/26/25 12:06) Rash Medications ?Medication ?Instructions ?Recorded ?Confirmed ?Type duloxetine 60 mg capsule,delayed 60 mg PO DAILY depres mana 11/25/13 01/26/25 History release lovastatin 40 mg tablet 40 mg PO DAILY hld 11/25/13 01/26/25 History cholecalciferol (vitamin D3) 125 5,000 unit PO DAILY s upplement 06/25/23 01/26/25 History mcg (5,000 unit) capsule levothyroxine 100 mcg tablet 100 mcg PO DAILY thyroid 06/25/23 01/26/25 History metformin 1,000 mg tablet 1,000 mg PO BID dm 06/25/23 01/26/25 History acetaminophen 500 mg capsule 500 mg PO Q6H PRN pain 01/26/25 History lidocaine-prilocaine 2.5 %-2.5 % 1 applic topical ONCE PRN port 12/16/24 08/27 /25 Rx topical cream access 30 days #30 grams omeprazole 20 mg capsule,delayed 20 mg PO QDAY 5 01/26/25 History release fluticasone fur. 100 mcg-umeclid 1 inh inhalation ARNALDO Y asthma #3 ea 10/08/24 01/26/25 Rx 62.5 mcg-vilant 25 mcg inhalat.powder (Trelegy Ellipta) albuterol sulfate 90 mcg/actuation 2 puff inhalation Q 6H asthma #18 10/11/24 01/26/25 Rx aerosol inhaler (Ventolin HFA) grams L.acidophil,salivari-Bifido 1 cap PO BID 11/04/2401/01 History bifidum-Strep thermoph 175 mg capsule Have you fallen in the past year?: No Central Venous Access Central Venous Access: Yes Port/PICC: Port CBC, CMP January 26, 2025 reviewed in EMR Exam Physical Exam Narrative ECOG 1 Const alert, oriented x3 and no apparent distress General Appearance: cooperative and comfortable Nutritional Appearance: morbidly obese HEENT normocephalic Face and Sinus: normal facial exam Mouth: oral and palatal mucosa normal Teeth and Gingiva: dentures Eyes General Eye: normal appearance of both eyes Neck no lymphadenopathy and no JVD Chest Chest: vascular access Resp clear to auscultation bilaterally Auscultation: diminished lung sounds bilateral and diffuse Cardio regular rate and regular rhythm Jugular Venous Distention: Negative for JVD GI soft to palpation, non-tender and non-distended Back/Spine thoracic and lumbar spine normal to inspection Extremity General Extremity: Negative for clubbing, cyanosis or edema Skin no rashes or lesions noted Neuro oriented x3, CN's II-XII intact bilaterally, moves all extremities and no focal motor deficits Coordination / Balance: [id number] test normal Speech: speech normal Gait (Neuro): normal gait Psych mental status grossly normal Coding Level of Care Code Off vis,est,level 4 Exam Problem Focused Diagnoses Small cell lung cancer, left upper lobe C34.12 Regional lymph node metastasis present C77.9 Assessment and Plan Assessment and Plan (1) Small cell lung cancer, left upper lobe: Status: Chronic (2) 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 Disease was detected on lung cancer screening. Patient received concomitant chemo (cisplatin and etoposide) with radiation May 2024 followed by 4 cycles carboplatin etoposide June-July 2024. She was hospitalized July 02 - July 05, 2024 with acute diarrhea, acute dehydration, electrolyte imbalance, metabolic encephalopathy, suspected acute cystitis and recovered. Her disease appears to be in remission by imaging July 2024. Started durvalumab maintenance for 2 years August 2024, so far tolerated with no grade 3 or 4 toxicities. Chronic comorbid conditions: Morbid obesity, COPD, diabetes, grade 1 peripheral neuropathy from diabetes, obstructive sleep apnea, DJD, dyslipidemia, hypothyroidism. Plan: Based on NCCN guidelines and up-to-date review of treatment of limited stage small cell lung cancer: 1. Durvalumab maintenance for 2 years. Treatment is with curative intent. 2. Residual anemia post chemoradiation, no evidence for iron or B12 deficiencies, improved. 3. Elective imaging with CT scan chest and abdomen at 3 months of maintenance therapy to schedule in early April 2025. 4. Rectal bleeding recurrent reported December 2024, has a history of hemorrhoidsand her last colonoscopy was in June 2020, will refer for reevaluation. Patient seen with her impression and plan discussed Maxi Merlos MD Behavioral Services Tech, [facility] Divisions of Medical Oncology & Hematology Department of Internal Medicine [place] [id number] This note was generated using a voice recognition system software. Although itwas reviewed by the author prior to finalization, it may still contain incorrectwords, spelling, and punctuation that were not noted when reviewing prior to saving. If a clinically significant typo or inaccurately typed phrase is noted, please notify the author.. Clinical Quality Measures Falls Risk Screening/Assistive Devices Have you fallen in the past year?: No 01/26/25 1251 karl MARSH> Date _ Maxi Merlos MD Cosigner Signature: Date (if applicable) CC: HYDROELECTRIC SYSTEMS TECHNICIAN-C Oscar Mott; Dr. Nicola Prabhakar MD ~ [facility]08-27-2025 Progress note Author Maxi Merlos [facility] Note Date/Time January 26, 2025 12 :51pm [facility] [address] [place] [address] OFFICE VISIT Date of Service: 01/26/25 1201 MR#: [id number] Acct: [id number] Name: ANDREA CALIX Rep #: [id number] : 1955 From: Maxi chau MD Age/Sex: 69/F Location: [facility] Status: Signed HPI Subjective Date of Service 01/26/25 Chief Complaint SCLC on treatment History of Present Illness 69-year-old female with small cell lung cancer. Disease was detected on lung cancer screening: November 26, [address]: IMPRESSION: New pulmonary nodules measuring up to 4 mm in the left upper lobe and 7 mm in the lingula. Lung-RADS category 4A. Recommend [address] follow-up. February 24, [address] chest: IMPRESSION: Interval increase in size of a noncalcified nodule left lung apex. Lung-RADS score: 4B - Very Suspicious. Recommend chest CT with or without contrast, PET/CT and/or tissue sampling depending on the probability of malignancy and comorbidities. April 26, 2024 bronchoscopy and EBUS at [facility]: A- lung, left upper lobe transbronchial FNA: Rare atypical cells cannot exclude neoplasm. B- mediastinal lymph node station 11R FNA: No malignant cells identified. C-mediastinal lymph node station 4R FNA: No malignant cells identified. D- mediastinal lymph node station 4L FNA: Positive for malignant cells, favor a high-grade neuroendocrine malignancy. E- mediastinal lymph node station 7 FNA: No malignant cells identified F-mediastinal lymph node station 11L FNA: No malignant cells identified. G-BAL left upper lobe cytology: Rare atypical cells April 30, 2024 PET/CT initial staging: IMPRESSION: 1. Enhanced labeled glucose defined in the left upper lung field, left upper lobe fulfills quantitative criteria for viable neoplasm with single point technique. Histopathologic analysis is recommended. (Marika et al, Annals of Internal Medicine, 138:724, 2003) 2. Increased FDG concentration noted in the anterior and middle mediastinum aorticopulmonary window fulfills quantitative criteria for malignant transformation. (Herminio peters al, Journal of Clinical Oncology 16:2142, 1998) 3. Facilitated radiopharmaceutical manifest in the left and right lobe of the thyroid colloid does not fulfill quantitative criteria for primary thyroidal neoplastic transformation. Correlation with thyroid ultrasound may be of benefit. May 09, 2024 brain MRI staging: IMPRESSION: No MRI evidence of brain metastases. This is a negative MRI brain with and without contrast and no significant interval changes since 06/12/2010. August 10, 2024 brain MRI: IMPRESSION: No acute process or pathologic enhancement. August 23, 2024 CT chest and abdomen and treatment restaging: IMPRESSION: CT chest: 1. Decreased size of the left apical pulmonary nodule. 2. Persistent ground-glass opacification within the anterior left upper lobe, which is indeterminate in etiology and may represent infectious/inflammatory pneumonitis. Continued attention on follow-upimaging recommended. Treatment summary and response: * 05/17/2024 ? 06/10/2024: received definitive chemoradiation consisting of 5400 cGy delivered in 30 fractions twice daily with at least 4500 cGy close going to PTV that is overlapping or near esophagus and heart. She was treated using a VMAT plan with 6 MV photons. Patient received her first cycle of systemic chemotherapy (cisplatin etoposide) concomitantly. * June 14?July carboplatin and etoposide (3 cycles). * Durvalumab maintenance for 2 years August 2024-. [facility] Medical History Fatigue Encounter for antineoplastic immunotherapy History of lipoma Right upper limb pain Hypomagnesemia Drug induced neutropenia Hypokalemia Diarrhea Encounter for chemotherapy management Encounter for education Wears glasses Wears dentures Post-menopausal Cancer Thyroid disease Diabetes Arthritis Anemia High cholesterol Heartburn Gastric reflux Former smoker CPAP (continuous positive airway pressure) dependence Sleep apnea Leg cramps History of edema History of echocardiogram History of stress test Regional lymph node metastasis present Primary fibromyalgia syndrome Chondromalacia Chronic obstructive lung disease Depression Hyperlipidemia Vitamin D deficiency Hypothyroidism Localized swelling, mass and lump, unspecified MARTELL (obstructive sleep apnea) Dyspnea Right ankle pain Surgical History History of colonoscopy History of ankle surgery History of cataract extraction Family History Mother Heart disease CVA (cerebral vascular accident) Brain tumor Father Cancer Stomach Heart disease Social History Smoking Status: Former smoker quit date: 06/02/16 pack-years: 63 Tobacco: How many years used: 42 Electronic Cigarette Use: not used how long ago did patient quit smokin years second hand exposure: Yes quit status: quit date established alcohol intake: never substance use type: does not use ROS Constitutional Constitutional: Reports systems reviewed and no addt'l complaints, except as documented; Denies fatigue, fever(s) or weight loss Eyes Eyes: Reports systems reviewed and no addt'l complaints, except as documented; Denies change in vision ENT HEENT: Reports systems reviewed and no addt'l complaints, except as documented; Denies mouth lesions Cardiovascular Cardiovascular: Reports systems reviewed and no addt'l complaints, except as documented; Denies chest pain with activity or edema Respiratory/Chest Respiratory/Chest: Reports cough and dyspnea on exertion; Denies hemoptysis Gastrointestinal Gastrointestinal: Reports systems reviewed and no addt'l complaints, except as documented, hematochezia, hemorrhoids and other Details: Has not had rectal bleeding from the hemorrhoids for a long time and has recently recurred in December 2024 ; Denies change in bowel habits, diarrhea or melena Genitourinary Genitourinary: Reports systems reviewed and no addt'l complaints, except as documented, urinary incontinence and other Details: Stress and urgency incontinence ; Denies hematuria Musculoskeletal Musculoskeletal: Reports systems reviewed and no addt'l complaints, except as documented and arthralgias Integumentary Integumentary: Reports systems reviewed and no addt'l complaints, except as documented; Denies new lesions Neurologic Neurologic: Reports systems reviewed and no addt'l complaints, except as documented; Denies focal weakness or paresthesias Psychiatric Psychiatric: Reports systems reviewed and no addt'l complaints, except as documented Endocrine Endocrinology: Reports systems reviewed and no addt'l complaints, except as documented Hematologic/Lymphatic Hematologic/Lymphatic: Reports systems reviewed and no addt'l complaints, exceptas documented Allergic/Immunologic Allergic/Immunologic: Reports systems reviewed and no addt'l complaints, except as documented Intake Vital Signs 12/01/24 11:36 01/26/25 12:02 01/26/25 12:06 Height 5 ft 4 in 5 ft 4 in 5 ft 4 in Weight: 94.971 kg BMI 35.9 BP 130/85 H Blood Pressure Location Lt brachial Position Sitting Respiration 16 Pulse 77 Pulse Source Monitor Temp 97.9 F Temperature Source Temporal Artery Pulse Oximetry (%) 95 Oxygen Delivery Method room air Intake Is patient in pain?: No Allergies vaccine adjuvant system, AS01B liposomal (From Shingrix (PF)) Allergy (Verified 01/26/25 12:06) Rash varicella-zoster virus glycoprotein E, recombinant (From Shingrix (PF)) Allergy (Verified 01/26/25 12:06) Rash Medications ?Medication ?Instructions ?Recorded ?Confirmed ?Type duloxetine 60 mg capsule,delayed 60 mg PO DAILY depres mana 11/25/13 01/26/25 History release lovastatin 40 mg tablet 40 mg PO DAILY hld 11/25/13 01/26/25 History cholecalciferol (vitamin D3) 125 5,000 unit PO DAILY s upplement 06/25/23 01/26/25 History mcg (5,000 unit) capsule levothyroxine 100 mcg tablet 100 mcg PO DAILY thyroid 06/25/23 01/26/25 History metformin 1,000 mg tablet 1,000 mg PO BID dm 06/25/23 01/26/25 History acetaminophen 500 mg capsule 500 mg PO Q6H PRN pain 01/26/25 History lidocaine-prilocaine 2.5 %-2.5 % 1 applic topical ONCE PRN port 05/17/2401/26 Rx topical cream access 30 days #30 grams omeprazole 20 mg capsule,delayed 20 mg PO QDAY 5 01/26/25 History release fluticasone fur. 100 mcg-umeclid 1 inh inhalation ARNALDO Y asthma #3 ea 10/08/24 01/26/25 Rx 62.5 mcg-vilant 25 mcg inhalat.powder (Trelegy Ellipta) albuterol sulfate 90 mcg/actuation 2 puff inhalation Q 6H asthma #18 10/11/24 01/26/25 Rx aerosol inhaler (Ventolin HFA) grams L.acidophil,salivari-Bifido 1 cap PO BID 11/04/2401/01 History bifidum-Strep thermoph 175 mg capsule Have you fallen in the past year?: No Central Venous Access Central Venous Access: Yes Port/PICC: Port CBC, CMP January 26, 2025 reviewed in EMR Exam Physical Exam Narrative ECOG 1 Const alert, oriented x3 and no apparent distress General Appearance: cooperative and comfortable Nutritional Appearance: morbidly obese HEENT normocephalic Face and Sinus: normal facial exam Mouth: oral and palatal mucosa normal Teeth and Gingiva: dentures Eyes General Eye: normal appearance of both eyes Neck no lymphadenopathy and no JVD Chest Chest: vascular access Resp clear to auscultation bilaterally Auscultation: diminished lung sounds bilateral and diffuse Cardio regular rate and regular rhythm Jugular Venous Distention: Negative for JVD GI soft to palpation, non-tender and non-distended Back/Spine thoracic and lumbar spine normal to inspection Extremity General Extremity: Negative for clubbing, cyanosis or edema Skin no rashes or lesions noted Neuro oriented x3, CN's II-XII intact bilaterally, moves all extremities and no focal motor deficits Coordination / Balance: jxurkz-[id number]-ahzo test normal Speech: speech normal Gait (Neuro): normal gait Psych mental status grossly normal Coding Level of Care Code Off vis,est,level 4 Exam Problem Focused Diagnoses Small cell lung cancer, left upper lobe C34.12 Regional lymph node metastasis present C77.9 Assessment and Plan Assessment and Plan (1) Small cell lung cancer, left upper lobe: Status: Chronic (2) 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 Disease was detected on lung cancer screening. Patient received concomitant chemo (cisplatin and etoposide) with radiation May 2024 followed by 4 cycles carboplatin etoposide June-July 2024. She was hospitalized July 02 - July 05, 2024 with acute diarrhea, acute dehydration, electrolyte imbalance, metabolic encephalopathy, suspected acute cystitis and recovered. Her disease appears to be in remission by imaging July 2024. Started durvalumab maintenance for 2 years August 2024, so far tolerated with no grade 3 or 4 toxicities. Chronic comorbid conditions: Morbid obesity, COPD, diabetes, grade 1 peripheral neuropathy from diabetes, obstructive sleep apnea, DJD, dyslipidemia, hypothyroidism. Plan: Based on NCCN guidelines and up-to-date review of treatment of limited stage small cell lung cancer: 1. Durvalumab maintenance for 2 years. Treatment is with curative intent. 2. Residual anemia post chemoradiation, no evidence for iron or B12 deficiencies, improved. 3. Elective imaging with CT scan chest and abdomen at 3 months of maintenance therapy to schedule in early April 2025. 4. Rectal bleeding recurrent reported December 2024, has a history of hemorrhoidsand her last colonoscopy was in June 2020, will refer for reevaluation. Patient seen with her impression and plan discussed Maxi Merlos MD Behavioral Services Tech, [facility] Divisions of Medical Oncology & Hematology Department of Internal Medicine [place] [address] This note was generated using a voice recognition system software. Although itwas reviewed by the author prior to finalization, it may still contain incorrectwords, spelling, and punctuation that were not noted when reviewing prior to saving. If a clinically significant typo or inaccurately typed phrase is noted, please notify the author.. Clinical Quality Measures Falls Risk Screening/Assistive Devices Have you fallen in the past year?: No 01/26/25 1251 <Electronically signed by Maxi barajas MD> Date _ [facility] Signature: Date (if applicable) CC: ANNETTE Mott; Dr. Nicola Prabhakar MD ~ [facility] Work Phone: [phone] 322-957907-30-[address] [place] [address] OFFICE VISIT Date of Service: 12/29/24 1126 MR#: [id number] Acct: [id number] Name: ANDREA CALIX Rep #: [id number] : 1955 From: Jamie Ortiz MD Age/Sex: 69/F Location: [facility] Status: Signed HPI Subjective Date of Service 12/29/24 Chief Complaint SCLC on treatment History of Present Illness 69-year-old female with small cell lung cancer. Disease was detected on lung cancer screening: November 26, [address]: IMPRESSION: New pulmonary nodules measuring up to 4 mm in the left upper lobe and 7 mm in the lingula. Lung-RADS category 4A. Recommend [address] follow-up. February 24, [address] chest: IMPRESSION: Interval increase in size of a noncalcified nodule left lung apex. Lung-RADS score: 4B - Very Suspicious. Recommend chest CT with or without contrast, PET/CT and/or tissue sampling depending on the probability of malignancy and comorbidities. April 26, 2024 bronchoscopy and EBUS at [facility]: A- lung, left upper lobe transbronchial FNA: Rare atypical cells cannot exclude neoplasm. B- mediastinal lymph node station 11R FNA: No malignant cells identified. C-mediastinal lymph node station 4R FNA: No malignant cells identified. D- mediastinal lymph node station 4L FNA: Positive for malignant cells, favor a high-grade neuroendocrine malignancy. E- mediastinal lymph node station 7 FNA: No malignant cells identified F-mediastinal lymph node station 11L FNA: No malignant cells identified. G-BAL left upper lobe cytology: Rare atypical cells April 30, 2024 PET/CT initial staging: IMPRESSION: 1. Enhanced labeled glucose defined in the left upper lung field, left upper lobe fulfills quantitative criteria for viable neoplasm with single point technique. Histopathologic analysis is recommended. (Hairston et al, Annals of Internal Medicine, 138:724, 2003) 2. Increased FDG concentration noted in the anterior and middle mediastinum aorticopulmonary window fulfills quantitative criteria for malignant transformation. (Herminio peters al, Journal of Clinical Oncology 16:2142, 1998) 3. Facilitated radiopharmaceutical manifest in the left and right lobe of the thyroid colloid does not fulfill quantitative criteria for primary thyroidal neoplastic transformation. Correlation with thyroid ultrasound may be of benefit. May 09, 2024 brain MRI staging: IMPRESSION: No MRI evidence of brain metastases. This is a negative MRI brain with and without contrast and no significant interval changes since 06/12/2010. August 10, 2024 brain MRI: IMPRESSION: No acute process or pathologic enhancement. August 23, 2024 CT chest and abdomen and treatment restaging: IMPRESSION: CT chest: 1. Decreased size of the left apical pulmonary nodule. 2. Persistent ground-glass opacification within the anterior left upper lobe, which is indeterminate in etiology and may represent infectious/inflammatory pneumonitis. Continued attention on follow- upimaging recommended. Treatment summary and response: * 05/17/2024 ? 06/10/2024: received definitive chemoradiation consisting of 5400 cGy delivered in 30 fractions twice daily with at least 4500 cGy close going to PTV that is overlapping or near esophagus and heart. She was treated using a VMAT plan with 6 MV photons. Patient received her first cycle of systemic chemotherapy (cisplatin etoposide) concomitantly. * June 14?July carboplatin and etoposide (3 cycles). * Durvalumab maintenance for 2 years August 2024-. Interval History Comes for C5 Durvalumab. Feeling well. [facility] Medical History Fatigue Encounter for antineoplastic immunotherapy History of lipoma Right upper limb pain Hypomagnesemia Drug induced neutropenia Hypokalemia Diarrhea Encounter for chemotherapy management Encounter for education Wears glasses Wears dentures Post-menopausal Cancer Thyroid disease Diabetes Arthritis Anemia High cholesterol Heartburn Gastric reflux Former smoker CPAP (continuous positive airway pressure) dependence Sleep apnea Leg cramps History of edema History of echocardiogram History of stress test Regional lymph node metastasis present Primary fibromyalgia syndrome Chondromalacia Chronic obstructive lung disease Depression Hyperlipidemia Vitamin D deficiency Hypothyroidism Localized swelling, mass and lump, unspecified MARTELL (obstructive sleep apnea) Dyspnea Right ankle pain Surgical History History of colonoscopy History of ankle surgery History of cataract extraction Family History Mother Heart disease CVA (cerebral vascular accident) Brain tumor Father Cancer Stomach Heart disease Social History Smoking Status: Former smoker quit date: 06/02/16 pack-years: 63 Tobacco: How many years used: 42 Electronic Cigarette Use: not used how long ago did patient quit smokin years second hand exposure: Yes quit status: quit date established alcohol intake: never substance use type: does not use Intake Vital Signs 09/08/24 08:20 12/29/24 11:28 Height 5 ft 4 in 5 ft 4 in Weight: 95.765 kg BMI 36.2 BP 121/74 H Blood Pressure Location Lt brachial Position Sitting Respiration 18 Pulse 84 Pulse Source Monitor Temp 98.4 F Temperature Source Temporal Artery Pulse Oximetry (%) 98 Oxygen Delivery Method room air Intake Accompanied by: Self Is patient in pain?: No Allergies vaccine adjuvant system, AS01B liposomal (From Shingrix (PF)) Allergy (Verified 12/29/24 11:36) Rash varicella-zoster virus glycoprotein E, recombinant (From Shingrix (PF)) Allergy (Verified 12/29/24 11:36) Rash Medications ?Medication ?Instructions ?Recorded ?Confirmed ?Type duloxetine 60 mg capsule,delayed 60 mg PO DAILY depres mana 11/25/13 12/29/24 History release lovastatin 40 mg tablet 40 mg PO DAILY hld 11/25/13 12/29/24 History cholecalciferol (vitamin D3) 125 5,000 unit PO DAILY s upplement 06/25/23 12/29/24 History mcg (5,000 unit) capsule levothyroxine 100 mcg tablet 100 mcg PO DAILY thyroid 06/25/23 12/29/24 History metformin 1,000 mg tablet 1,000 mg PO BID dm 06/25/23 12/29/24 History acetaminophen 500 mg capsule 500 mg PO Q6H PRN pain 12/29/24 History lidocaine-prilocaine 2.5 %-2.5 % 1 applic topical ONCE PRN port 05/17/24 12/29/24 Rx topical cream access 30 days #30 grams omeprazole 20 mg capsule,delayed 20 mg PO QDAY 5 12/29/24 History release fluticasone fur. 100 mcg-umeclid 1 inh inhalation ARNALDO Y asthma #3 ea 10/08/24 12/29/24 Rx 62.5 mcg-vilant 25 mcg inhalat.powder (Trelegy Ellipta) albuterol sulfate 90 mcg/actuation 2 puff inhalation Q 6H asthma #18 10/11/24 12/29/24 Rx aerosol inhaler (Ventolin HFA) grams L.acidophil,salivari-Bifido 1 cap PO BID 11/04/2412/02 History bifidum-Strep thermoph 175 mg capsule Have you fallen in the past year?: No Central Venous Access Central Venous Access: Yes Port/PICC: Port Exam Physical Exam Narrative ECOG 1 Const alert, oriented x3 and no apparent distress General Appearance: cooperative and comfortable Nutritional Appearance: morbidly obese HEENT normocephalic Face and Sinus: normal facial exam Mouth: oral and palatal mucosa normal Teeth and Gingiva: dentures Eyes General Eye: normal appearance of both eyes Neck no lymphadenopathy and no JVD Chest Chest: vascular access Resp clear to auscultation bilaterally Auscultation: diminished lung sounds bilateral and diffuse Cardio regular rate and regular rhythm Jugular Venous Distention: Negative for JVD GI soft to palpation, non-tender and non-distended Back/Spine thoracic and lumbar spine normal to inspection Extremity General Extremity: Negative for clubbing, cyanosis or edema Skin no rashes or lesions noted Neuro oriented x3, CN's II-XII intact bilaterally, moves all extremities and no focal motor deficits Coordination / Balance: [id number]-hq-dtml test normal Speech: speech normal Gait (Neuro): normal gait Psych mental status grossly normal Coding Level of Care Code Off vis,est,level 4 Exam Problem Focused Diagnoses Small cell lung cancer, left upper lobe C34.12 Regional lymph node metastasis present C77.9 Assessment and Plan Assessment and Plan (1) Small cell lung cancer, left upper lobe: Status: Chronic (2) Regional lymph node metastasis present: Status: Chronic Plan On Maintenance Durvalumab. Counts and chemistry reviewed, OK for therapy. Plan is to proceed with C5 maintenance Durvalumab. Plan Details Follow Up: 4 Weeks Clinical Quality Measures Falls Risk Screening/Assistive Devices Have you fallen in the past year?: No 12/29/24 1159 D> Date _ Jamie Ortiz MD Cosign Signature: Date (if applicable) CC: HYDROELECTRIC SYSTEMS TECHNICIANAnirudh Mott ~ [facility]07-30-2025 Radiology Diagnostic study note [facility] Imaging Services [address] [place], [place] [address] CT Chest AND Abd W/ Contrast MR#: [id number] Acct: [id number] Name: ANDREA CALIX Rep #: [id number] : 1955 F 69 From: Asad Carias MD PCP: ANNETTE Willis Status: REG CLI Study:CT Chest AND Abd W/ Contrast Date of Ex am: 12/24/24 Exam# [id number] Ordering Dr: Maxi Merlos MD PROCEDURE: CT CHEST AND ABD W/ CONTRAST 12/24/2024 REASON FOR EXAM: F/U SCLC TECHNIQUE: Chest and abdomen CT with intravenous contrast. Coronal and Sagittal reconstruction series were provided. One or more dose reduction techniques were used (e.g., Automated exposure control, adjustment of the mA and/or kV according to patient size, use of iterative reconstruction technique. PATIENT PREPARATION: Per protocol ORAL CONTRAST TYPE: None. CONTRAST: Isovue 370 VOLUME: 100mL RADIATION DOSE SUMMARY: CTDlvol: 11.5 mGy DLP: 741.7 mGycm COMPARISON: Prior study dated August 23, 2024. FINDINGS: CT CHEST: Hardware: A right-sided port a catheter is seen with the tip in the superior vena cava. Lymph nodes: Persistent 2.3 cm x 2.3 cm rounded nodular density in the anterior mediastinum superiorly suggestive of a lymph node. This has increased slightly in size as compared to prior study. Mild enlargement of precarinal lymph nodes. Mildly enlarged bilateral hilar lymph nodes as compared to prior study. Heart and Vasculature: Coronary artery calcification. Lungs and Airways: Since prior study, there is evidence of increased linear markings with areas of confluence and findings suggestive of bronchiectasis in the left lung apex and left upper lobe. Irregular nodular densitiesare seen. This may represent post radiation fibrosis if the patient has received radiation at that site. Correlation with a PET scan recommended. There is also evidence of a 9.4 mm pleural-based nodule in the anterior aspect of the right lower lobe adherent to the minor fissure as seen on axial image number 60 i. ncreased linear markings at the lungbases suggestive ofscarring. Pleura: No significant pleural effusion is seen. CT ABDOMEN: Liver: Fatty infiltration of the liver. Gallbladder: No evidence of gallstones. Spleen: Normal size. Pancreas: Normal size without evidence of mass surrounding inflammation or ductal dilation. Adrenals: Unremarkable Kidneys: Normal renal sizes. No hydronephrosis. Bowel: No evidence of bowel obstruction. Lymph nodes: No retroperitoneal lymphadenopathy. Vasculature: Mild diffuse atherosclerotic calcifications are noted. Peritoneum / Retroperitoneum: Unremarkable Bones: Degenerative changes of the spine. CT/CT Chest AND Abd W/ Contrast IMPRESSION: Coronary artery calcification (CAC) is is present Since prior study, there has been development of increased markings with bronchiectasis and irregular soft tissue nodules in the left lung apex and left upper lobe as described. This may represent post radiation pneumonitis/fibrosis of the patient received radiation at that site. 9.4 mm pleural-based nodule in the anterior aspect of the right lower lobe adjacent to the right minor fissure. Reading Location: [id number] CC: ANNETTE Mott; Dr. Maxi Merlos MD ~ [employer]: Signed [facility]07-30-2025 Progress note Author Jamie Ortiz [facility] Note Date/Time December 29, 2024 11:5 9am [facility] [address] [place] [id number] OFFICE VISIT Date of Service: 12/29/24 1126 MR#: [id number] Acct: [id number] Name: ANDREA CALIX Rep #: [id number] : 1955 From: Jamie Ortiz MD Age/Sex: 69/F Location: [facility] Status: Signed HPI Subjective Date of Service 12/29/24 Chief Complaint SCLC on treatment History of Present Illness 69-year-old female with small cell lung cancer. Disease was detected on lung cancer screening: November 26, [address]: IMPRESSION: New pulmonary nodules measuring up to 4 mm in the left upper lobe and 7 mm in the lingula. Lung-RADS category 4A. Recommend [address] follow-up. February 24, [address] chest: IMPRESSION: Interval increase in size of a noncalcified nodule left lung apex. Lung-RADS score: 4B - Very Suspicious. Recommend chest CT with or without contrast, PET/CT and/or tissue sampling depending on the probability of malignancy and comorbidities. April 26, 2024 bronchoscopy and EBUS at [facility]: A- lung, left upper lobe transbronchial FNA: Rare atypical cells cannot exclude neoplasm. B- mediastinal lymph node station 11R FNA: No malignant cells identified. C-mediastinal lymph node station 4R FNA: No malignant cells identified. D- mediastinal lymph node station 4L FNA: Positive for malignant cells, favor a high-grade neuroendocrine malignancy. E- mediastinal lymph node station 7 FNA: No malignant cells identified F-mediastinal lymph node station 11L FNA: No malignant cells identified. G-BAL left upper lobe cytology: Rare atypical cells April 30, 2024 PET/CT initial staging: IMPRESSION: 1. Enhanced labeled glucose defined in the left upper lung field, left upper lobe fulfills quantitative criteria for viable neoplasm with single point technique. Histopathologic analysis is recommended. (Marika et al, Annals of Internal Medicine, 138:724, 2003) 2. Increased FDG concentration noted in the anterior and middle mediastinum aorticopulmonary window fulfills quantitative criteria for malignant transformation. (Herminio peters al, Journal of Clinical Oncology 16:2142, 1998) 3. Facilitated radiopharmaceutical manifest in the left and right lobe of the thyroid colloid does not fulfill quantitative criteria for primary thyroidal neoplastic transformation. Correlation with thyroid ultrasound may be of benefit. May 09, 2024 brain MRI staging: IMPRESSION: No MRI evidence of brain metastases. This is a negative MRI brain with and without contrast and no significant interval changes since 06/12/2010. August 10, 2024 brain MRI: IMPRESSION: No acute process or pathologic enhancement. August 23, 2024 CT chest and abdomen and treatment restaging: IMPRESSION: CT chest: 1. Decreased size of the left apical pulmonary nodule. 2. Persistent ground-glass opacification within the anterior left upper lobe, which is indeterminate in etiology and may represent infectious/inflammatory pneumonitis. Continued attention on follow-upimaging recommended. Treatment summary and response: * 05/17/2024 ? 06/10/2024: received definitive chemoradiation consisting of 5400 cGy delivered in 30 fractions twice daily with at least 4500 cGy close going to PTV that is overlapping or near esophagus and heart. She was treated using a VMAT plan with 6 MV photons. Patient received her first cycle of systemic chemotherapy (cisplatin etoposide) concomitantly. * June 14?July carboplatin and etoposide (3 cycles). * Durvalumab maintenance for 2 years August 2024-. Interval History Comes for C5 Durvalumab. Feeling well. [facility] Medical History Fatigue Encounter for antineoplastic immunotherapy History of lipoma Right upper limb pain Hypomagnesemia Drug induced neutropenia Hypokalemia Diarrhea Encounter for chemotherapy management Encounter for education Wears glasses Wears dentures Post-menopausal Cancer Thyroid disease Diabetes Arthritis Anemia High cholesterol Heartburn Gastric reflux Former smoker CPAP (continuous positive airway pressure) dependence Sleep apnea Leg cramps History of edema History of echocardiogram History of stress test Regional lymph node metastasis present Primary fibromyalgia syndrome Chondromalacia Chronic obstructive lung disease Depression Hyperlipidemia Vitamin D deficiency Hypothyroidism Localized swelling, mass and lump, unspecified MARTELL (obstructive sleep apnea) Dyspnea Right ankle pain Surgical History History of colonoscopy History of ankle surgery History of cataract extraction Family History Mother Heart disease CVA (cerebral vascular accident) Brain tumor Father Cancer Stomach Heart disease Social History Smoking Status: Former smoker quit date: 06/02/16 pack-years: 63 Tobacco: How many years used: 42 Electronic Cigarette Use: not used how long ago did patient quit smokin years second hand exposure: Yes quit status: quit date established alcohol intake: never substance use type: does not use Intake Vital Signs 09/08/24 08:20 12/29/24 11:28 Height 5 ft 4 in 5 ft 4 in Weight: 95.765 kg BMI 36.2 BP 121/74 H Blood Pressure Location Lt brachial Position Sitting Respiration 18 Pulse 84 Pulse Source Monitor Temp 98.4 F Temperature Source Temporal Artery Pulse Oximetry (%) 98 Oxygen Delivery Method room air Intake Accompanied by: Self Is patient in pain?: No Allergies vaccine adjuvant system, AS01B liposomal (From Shingrix (PF)) Allergy (Verified 12/29/24 11:36) Rash varicella-zoster virus glycoprotein E, recombinant (From Shingrix (PF)) Allergy (Verified 12/29/24 11:36) Rash Medications ?Medication ?Instructions ?Recorded ?Confirmed ?Type duloxetine 60 mg capsule,delayed 60 mg PO DAILY depres mana 11/25/13 12/29/24 History release lovastatin 40 mg tablet 40 mg PO DAILY hld 11/25/13 12/29/24 History cholecalciferol (vitamin D3) 125 5,000 unit PO DAILY s upplement 06/25/23 12/29/24 History mcg (5,000 unit) capsule levothyroxine 100 mcg tablet 100 mcg PO DAILY thyroid 06/25/23 12/29/24 History metformin 1,000 mg tablet 1,000 mg PO BID dm 06/25/23 12/29/24 History acetaminophen 500 mg capsule 500 mg PO Q6H PRN pain 12/29/24 History lidocaine-prilocaine 2.5 %-2.5 % 1 applic topical ONCE PRN port 05/17/24 12/29/24 Rx topical cream access 30 days #30 grams omeprazole 20 mg capsule,delayed 20 mg PO QDAY 5 12/29/24 History release fluticasone fur. 100 mcg-umeclid 1 inh inhalation ARNALDO Y asthma #3 ea 10/08/24 12/29/24 Rx 62.5 mcg-vilant 25 mcg inhalat.powder (Trelegy Ellipta) albuterol sulfate 90 mcg/actuation 2 puff inhalation Q 6H asthma #18 10/11/24 12/29/24 Rx aerosol inhaler (Ventolin HFA) grams L.acidophil,salivari-Bifido 1 cap PO BID 11/04/24 07/ 0 History bifidum-Strep thermoph 175 mg capsule Have you fallen in the past year?: No Central Venous Access Central Venous Access: Yes Port/PICC: Port Exam Physical Exam Narrative ECOG 1 Const alert, oriented x3 and no apparent distress General Appearance: cooperative and comfortable Nutritional Appearance: morbidly obese HEENT normocephalic Face and Sinus: normal facial exam Mouth: oral and palatal mucosa normal Teeth and Gingiva: dentures Eyes General Eye: normal appearance of both eyes Neck no lymphadenopathy and no JVD Chest Chest: vascular access Resp clear to auscultation bilaterally Auscultation: diminished lung sounds bilateral and diffuse Cardio regular rate and regular rhythm Jugular Venous Distention: Negative for JVD GI soft to palpation, non-tender and non-distended Back/Spine thoracic and lumbar spine normal to inspection Extremity General Extremity: Negative for clubbing, cyanosis or edema Skin no rashes or lesions noted Neuro oriented x3, CN's II-XII intact bilaterally, moves all extremities and no focal motor deficits Coordination / Balance: tkfyun-as-jcyh test normal Speech: speech normal Gait (Neuro): normal gait Psych mental status grossly normal Coding Level of Care Code Off vis,est,level 4 Exam Problem Focused Diagnoses Small cell lung cancer, left upper lobe C34.12 Regional lymph node metastasis present C77.9 Assessment and Plan Assessment and Plan (1) Small cell lung cancer, left upper lobe: Status: Chronic (2) Regional lymph node metastasis present: Status: Chronic Plan On Maintenance Durvalumab. Counts and chemistry reviewed, OK for therapy. Plan is to proceed with C5 maintenance Durvalumab. Plan Details Follow Up: 4 Weeks Clinical Quality Measures Falls Risk Screening/Assistive Devices Have you fallen in the past year?: No 12/29/24 3959 <Electronically signed by Jamie Lizarraga> Date _ Jamie Ortiz MD [facility] Signature: Date (if applicable) CC: HYDROELECTRIC SYSTEMS TECHNICIANTorresC Oscar Mott ~ [facility] Work Phone: 1(713) 933-853307-02-2025 Progress [facility] [address] [place] [address] OFFICE VISIT Date of Service: 12/01/24 1129 MR#: [id number] Acct: [id number] Name: ANDREA CALIX Rep #: [id number] : 1955 From: Maxi chau MD Age/Sex: 69/F Location: [facility] Status: Signed HPI Subjective Date of Service 12/01/24 Chief Complaint SCLC on treatment History of Present Illness 69-year-old female with small cell lung cancer. Disease was detected on lung cancer screening: November 26, [address]: IMPRESSION: New pulmonary nodules measuring up to 4 mm in the left upper lobe and 7 mm in the lingula. Lung-RADS category 4A. Recommend [address] follow-up. February 24, [address] chest: IMPRESSION: Interval increase in size of a noncalcified nodule left lung apex. Lung-RADS score: 4B - Very Suspicious. Recommend chest CT with or without contrast, PET/CT and/or tissue sampling depending on the probability of malignancy and comorbidities. April 26, 2024 bronchoscopy and EBUS at [facility]: A- lung, left upper lobe transbronchial FNA: Rare atypical cells cannot exclude neoplasm. B- mediastinal lymph node station 11R FNA: No malignant cells identified. C-mediastinal lymph node station 4R FNA: No malignant cells identified. D- mediastinal lymph node station 4L FNA: Positive for malignant cells, favor a high-grade neuroendocrine malignancy. E- mediastinal lymph node station 7 FNA: No malignant cells identified F-mediastinal lymph node station 11L FNA: No malignant cells identified. G-BAL left upper lobe cytology: Rare atypical cells April 30, 2024 PET/CT initial staging: IMPRESSION: 1. Enhanced labeled glucose defined in the left upper lung field, left upper lobe fulfills quantitative criteria for viable neoplasm with single point technique. Histopathologic analysis is recommended. (Marika et al, Annals of Internal Medicine, 138:724, 2003) 2. Increased FDG concentration noted in the anterior and middle mediastinum aorticopulmonary window fulfills quantitative criteria for malignant transformation. (Herminio peters al, Journal of Clinical Oncology 16:2142, 1998) 3. Facilitated radiopharmaceutical manifest in the left and right lobe of the thyroid colloid does not fulfill quantitative criteria for primary thyroidal neoplastic transformation. Correlation with thyroid ultrasound may be of benefit. May 09, 2024 brain MRI staging: IMPRESSION: No MRI evidence of brain metastases. This is a negative MRI brain with and without contrast and no significant interval changes since 06/12/2010. August 10, 2024 brain MRI: IMPRESSION: No acute process or pathologic enhancement. August 23, 2024 CT chest and abdomen and treatment restaging: IMPRESSION: CT chest: 1. Decreased size of the left apical pulmonary nodule. 2. Persistent ground-glass opacification within the anterior left upper lobe, which is indeterminate in etiology and may represent infectious/inflammatory pneumonitis. Continued attention on follow- upimaging recommended. Treatment summary and response: * 05/17/2024 ? 06/10/2024: received definitive chemoradiation consisting of 5400 cGy delivered in 30 fractions twice daily with at least 4500 cGy close going to PTV that is overlapping or near esophagus and heart. She was treated using a VMAT plan with 6 MV photons. Patient received her first cycle of systemic chemotherapy (cisplatin etoposide) concomitantly. * June 14?July carboplatin and etoposide (3 cycles). * Durvalumab maintenance for 2 years August 2024-. [facility] Medical History Fatigue Encounter for antineoplastic immunotherapy History of lipoma Right upper limb pain Hypomagnesemia Drug induced neutropenia Hypokalemia Diarrhea Encounter for chemotherapy management Encounter for education Wears glasses Wears dentures Post-menopausal Cancer Thyroid disease Diabetes Arthritis Anemia High cholesterol Heartburn Gastric reflux Former smoker CPAP (continuous positive airway pressure) dependence Sleep apnea Leg cramps History of edema History of echocardiogram History of stress test Regional lymph node metastasis present Primary fibromyalgia syndrome Chondromalacia Chronic obstructive lung disease Depression Hyperlipidemia Vitamin D deficiency Hypothyroidism Localized swelling, mass and lump, unspecified MARTELL (obstructive sleep apnea) Dyspnea Right ankle pain Surgical History History of colonoscopy History of ankle surgery History of cataract extraction Family History Mother Heart disease CVA (cerebral vascular accident) Brain tumor Father Cancer Stomach Heart disease Social History (Reviewed 12/01/24 @ 11:36 by Juana Vargas Smoking Status: Former smoker quit date: 06/02/16 pack-years: 63 Tobacco: How many years used: 42 Electronic Cigarette Use: not used how long ago did patient quit smokin years second hand exposure: Yes quit status: quit date established alcohol intake: never substance use type: does not use ROS Constitutional Constitutional: Reports systems reviewed and no addt'l complaints, except as documented; Denies fatigue, fever(s) or weight loss Eyes Eyes: Reports systems reviewed and no addt'l complaints, except as documented; Denies change in vision ENT HEENT: Reports systems reviewed and no addt'l complaints, except as documented; Denies mouth lesions Cardiovascular Cardiovascular: Reports systems reviewed and no addt'l complaints, except as documented; Denies chest pain with activity or edema Respiratory/Chest Respiratory/Chest: Reports cough and dyspnea on exertion; Denies hemoptysis Gastrointestinal Gastrointestinal: Reports systems reviewed and no addt'l complaints, except as documented; Denies change in bowel habits, diarrhea, hematochezia or melena Genitourinary Genitourinary: Reports systems reviewed and no addt'l complaints, except as documented, urinary incontinence and other Details: Stress and urgency incontinence ; Denies hematuria Musculoskeletal Musculoskeletal: Reports systems reviewed and no addt'l complaints, except as documented and arthralgias Integumentary Integumentary: Reports systems reviewed and no addt'l complaints, except as documented; Denies new lesions Neurologic Neurologic: Reports systems reviewed and no addt'l complaints, except as documented; Denies focal weakness or paresthesias Psychiatric Psychiatric: Reports systems reviewed and no addt'l complaints, except as documented Endocrine Endocrinology: Reports systems reviewed and no addt'l complaints, except as documented Hematologic/Lymphatic Hematologic/Lymphatic: Reports systems reviewed and no addt'l complaints, exceptas documented Allergic/Immunologic Allergic/Immunologic: Reports systems reviewed and no addt'l complaints, except as documented Intake Vital Signs 09/08/24 08:20 11/16/24 13:38 12/01/24 11:30 12/01/24 11:36 Height 5 ft 4 in 5 ft 4 in 5 ft 4 in 5 ft 4 in Weight: 91.881 kg 93.894 kg BMI 34.7 35.5 BP 121/79 H 126/80 H Blood Pressure Location Rt brachial Lt brachial Position Sitting Sitting Respiration 18 16 Pulse 88 79 Pulse Source Monitor Monitor Temp 97.0 F L 97.7 F L Temperature Source Temporal Artery Temporal Artery Pulse Oximetry (%) 97 96 Oxygen Delivery Method room air room air Intake Is patient in pain?: No Allergies vaccine adjuvant system, AS01B liposomal (From Shingrix (PF)) Allergy (Verified 12/01/24 11:36) Rash varicella-zoster virus glycoprotein E, recombinant (From Shingrix (PF)) Allergy (Verified 12/01/24 11:36) Rash Medications ?Medication ?Instructions ?Recorded ?Confirmed ?Type duloxetine 60 mg capsule,delayed 60 mg PO DAILY depres mana 11/25/13 12/01/24 History release lovastatin 40 mg tablet 40 mg PO DAILY hld 11/25/13 12/01/24 History cholecalciferol (vitamin D3) 125 5,000 unit PO DAILY s upplement 06/25/23 12/01/24 History mcg (5,000 unit) capsule levothyroxine 100 mcg tablet 100 mcg PO DAILY thyroid 06/25/23 12/01/24 History metformin 1,000 mg tablet 1,000 mg PO BID dm 06/25/23 12/01/24 History acetaminophen 500 mg capsule 500 mg PO Q6H PRN pain 12/01/24 History lidocaine-prilocaine 2.5 %-2.5 % 1 applic topical ONCE PRN port 05/17/24 12/01/24 Rx topical cream access 30 days #30 grams omeprazole 20 mg capsule,delayed 20 mg PO QDAY 5 12/01/24 History release fluticasone fur. 100 mcg-umeclid 1 inh inhalation ARNALDO Y asthma #3 ea 10/08/24 12/01/24 Rx 62.5 mcg-vilant 25 mcg inhalat.powder (Trelegy Ellipta) albuterol sulfate 90 mcg/actuation 2 puff inhalation Q 6H asthma #18 10/11/24 12/01/24 Rx aerosol inhaler (Ventolin HFA) grams L.acidophil,salivari-Bifido 1 cap PO BID 11/04/24 07/07/27 History bifidum-Strep thermoph 175 mg capsule Have you fallen in the past year?: No Central Venous Access Central Venous Access: Yes Port/PICC: Port December 01, 2024 CBC, CMP reviewed in EMR Exam Physical Exam Narrative ECOG 1 Const alert, oriented x3 and no apparent distress General Appearance: cooperative and comfortable Nutritional Appearance: morbidly obese HEENT normocephalic Face and Sinus: normal facial exam Mouth: oral and palatal mucosa normal Teeth and Gingiva: dentures Eyes General Eye: normal appearance of both eyes Neck no lymphadenopathy and no JVD Chest Chest: vascular access Resp clear to auscultation bilaterally Auscultation: diminished lung sounds bilateral and diffuse Cardio regular rate and regular rhythm Jugular Venous Distention: Negative for JVD GI soft to palpation, non-tender and non-distended Back/Spine thoracic and lumbar spine normal to inspection Extremity General Extremity: Negative for clubbing, cyanosis or edema Skin no rashes or lesions noted Neuro oriented x3, CN's II-XII intact bilaterally, moves all extremities and no focal motor deficits Coordination / Balance: [id number]-[id number]-qvnt test normal Speech: speech normal Gait (Neuro): normal gait Psych mental status grossly normal Coding Level of Care Code Off vis,est,level 4 Exam Problem Focused Diagnoses Small cell lung cancer, left upper lobe C34.12 Regional lymph node metastasis present C77.9 Assessment and Plan Assessment and Plan (1) Small cell lung cancer, left upper lobe: Status: Chronic (2) 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 Disease was detected on lung cancer screening. Patient received concomitant chemo (cisplatin and etoposide) with radiation May 2024 followed by 4 cycles carboplatin etoposide June-July 2024. She was hospitalized July 02 - July 05, 2024 with acute diarrhea, acute dehydration, electrolyte imbalance, metabolic encephalopathy, suspected acute cystitis and recovered. Her disease appears to be in remission by imaging July 2024. Started durvalumab maintenance for 2 years August 2024, so far tolerated with no grade 3 or 4 toxicities. Chronic comorbid conditions: Morbid obesity, COPD, diabetes, grade 1 peripheral neuropathy from diabetes, obstructive sleep apnea, DJD, dyslipidemia, hypothyroidism. Plan: Based on NCCN guidelines and up-to-date review of treatment of limited stage small cell lung cancer: 1. Durvalumab maintenance for 2 years. Treatment is with curative intent. 2. Residual anemia post chemoradiation, no evidence for iron or B12 deficiencies, improved. 3. Elective imaging with CT scan chest and abdomen scheduled November 2024. Patient seen with her impression and plan discussed Maxi Merlos MD Behavioral Services Tech, [facility] Divisions of Medical Oncology & Hematology Department of Internal Medicine [address] [address] This note was generated using a voice recognition system software. Although itwas reviewed by the author prior to finalization, it may still contain incorrectwords, spelling, and punctuation that were not noted when reviewing prior to saving. If a clinically significant typo or inaccurately typed phrase is noted, please notify the author.. Clinical Quality Measures Falls Risk Screening/Assistive Devices Have you fallen in the past year?: No 12/01/24 1211 karl MARSH> Date _ Maxi Merlos MD Cosigner Signature: Date (if applicable) CC: ~ [facility]07-02-2025 Progress note Author Maxi Merlos [facility] Note Date/Time December 01, 2024 12:11 pm [facility] [place] [address] OFFICE VISIT Date of Service: 12/01/24 1129 MR#: [id number] Acct: [id number] Name: ANDREA CALIX JACQUI Rep #: [id number] : 1955 From: Maxi chau MD Age/Sex: 69/F Location: [facility] Status: Signed HPI Subjective Date of Service 12/01/24 Chief Complaint SCLC on treatment History of Present Illness 69-year-old female with small cell lung cancer. Disease was detected on lung cancer screening: November 26, [address]: IMPRESSION: New pulmonary nodules measuring up to 4 mm in the left upper lobe and 7 mm in the lingula. Lung-RADS category 4A. Recommend [address] follow-up. February 24, [address] chest: IMPRESSION: Interval increase in size of a noncalcified nodule left lung apex. Lung-RADS score: 4B - Very Suspicious. Recommend chest CT with or without contrast, PET/CT and/or tissue sampling depending on the probability of malignancy and comorbidities. April 26, 2024 bronchoscopy and EBUS at [facility]: A- lung, left upper lobe transbronchial FNA: Rare atypical cells cannot exclude neoplasm. B- mediastinal lymph node station 11R FNA: No malignant cells identified. C-mediastinal lymph node station 4R FNA: No malignant cells identified. D- mediastinal lymph node station 4L FNA: Positive for malignant cells, favor a high-grade neuroendocrine malignancy. E- mediastinal lymph node station 7 FNA: No malignant cells identified F-mediastinal lymph node station 11L FNA: No malignant cells identified. G-BAL left upper lobe cytology: Rare atypical cells April 30, 2024 PET/CT initial staging: IMPRESSION: 1. Enhanced labeled glucose defined in the left upper lung field, left upper lobe fulfills quantitative criteria for viable neoplasm with single point technique. Histopathologic analysis is recommended. (Hairston et al, Annals of Internal Medicine, 138:724, 2003) 2. Increased FDG concentration noted in the anterior and middle mediastinum aorticopulmonary window fulfills quantitative criteria for malignant transformation. (Herminio et al, Journal of Clinical Oncology 16:2142, 1998) 3. Facilitated radiopharmaceutical manifest in the left and right lobe of the thyroid colloid does not fulfill quantitative criteria for primary thyroidal neoplastic transformation. Correlation with thyroid ultrasound may be of benefit. May 09, 2024 brain MRI staging: IMPRESSION: No MRI evidence of brain metastases. This is a negative MRI brain with and without contrast and no significant interval changes since 06/12/2010. August 10, 2024 brain MRI: IMPRESSION: No acute process or pathologic enhancement. August 23, 2024 CT chest and abdomen and treatment restaging: IMPRESSION: CT chest: 1. Decreased size of the left apical pulmonary nodule. 2. Persistent ground-glass opacification within the anterior left upper lobe, which is indeterminate in etiology and may represent infectious/inflammatory pneumonitis. Continued attention on follow-upimaging recommended. Treatment summary and response: * 05/17/2024 ? 06/10/2024: received definitive chemoradiation consisting of 5400 cGy delivered in 30 fractions twice daily with at least 4500 cGy close going to PTV that is overlapping or near esophagus and heart. She was treated using a VMAT plan with 6 MV photons. Patient received her first cycle of systemic chemotherapy (cisplatin etoposide) concomitantly. * June 14?July carboplatin and etoposide (3 cycles). * Durvalumab maintenance for 2 years August 2024-. [facility] Medical History Fatigue Encounter for antineoplastic immunotherapy History of lipoma Right upper limb pain Hypomagnesemia Drug induced neutropenia Hypokalemia Diarrhea Encounter for chemotherapy management Encounter for education Wears glasses Wears dentures Post-menopausal Cancer Thyroid disease Diabetes Arthritis Anemia High cholesterol Heartburn Gastric reflux Former smoker CPAP (continuous positive airway pressure) dependence Sleep apnea Leg cramps History of edema History of echocardiogram History of stress test Regional lymph node metastasis present Primary fibromyalgia syndrome Chondromalacia Chronic obstructive lung disease Depression Hyperlipidemia Vitamin D deficiency Hypothyroidism Localized swelling, mass and lump, unspecified MARTELL (obstructive sleep apnea) Dyspnea Right ankle pain Surgical History History of colonoscopy History of ankle surgery History of cataract extraction Family History Mother Heart disease CVA (cerebral vascular accident) Brain tumor Father Cancer Stomach Heart disease Social History Smoking Status: Former smoker quit date: 06/02/16 pack-years: 63 Tobacco: How many years used: 42 Electronic Cigarette Use: not used how long ago did patient quit smokin years second hand exposure: Yes quit status: quit date established alcohol intake: never substance use type: does not use ROS Constitutional Constitutional: Reports systems reviewed and no addt'l complaints, except as documented; Denies fatigue, fever(s) or weight loss Eyes Eyes: Reports systems reviewed and no addt'l complaints, except as documented; Denies change in vision ENT HEENT: Reports systems reviewed and no addt'l complaints, except as documented; Denies mouth lesions Cardiovascular Cardiovascular: Reports systems reviewed and no addt'l complaints, except as documented; Denies chest pain with activity or edema Respiratory/Chest Respiratory/Chest: Reports cough and dyspnea on exertion; Denies hemoptysis Gastrointestinal Gastrointestinal: Reports systems reviewed and no addt'l complaints, except as documented; Denies change in bowel habits, diarrhea, hematochezia or melena Genitourinary Genitourinary: Reports systems reviewed and no addt'l complaints, except as documented, urinary incontinence and other Details: Stress and urgency incontinence ; Denies hematuria Musculoskeletal Musculoskeletal: Reports systems reviewed and no addt'l complaints, except as documented and arthralgias Integumentary Integumentary: Reports systems reviewed and no addt'l complaints, except as documented; Denies new lesions Neurologic Neurologic: Reports systems reviewed and no addt'l complaints, except as documented; Denies focal weakness or paresthesias Psychiatric Psychiatric: Reports systems reviewed and no addt'l complaints, except as documented Endocrine Endocrinology: Reports systems reviewed and no addt'l complaints, except as documented Hematologic/Lymphatic Hematologic/Lymphatic: Reports systems reviewed and no addt'l complaints, exceptas documented Allergic/Immunologic Allergic/Immunologic: Reports systems reviewed and no addt'l complaints, except as documented Intake Vital Signs 09/08/24 08:20 11/16/24 13:38 12/01/24 11:30 12/01/24 11:36 Height 5 ft 4 in 5 ft 4 in 5 ft 4 in 5 ft 4 in Weight: 91.881 kg 93.894 kg BMI 34.7 35.5 BP 121/79 H 126/80 H Blood Pressure Location Rt brachial Lt brachial Position Sitting Sitting Respiration 18 16 Pulse 88 79 Pulse Source Monitor Monitor Temp 97.0 F L 97.7 F L Temperature Source Temporal Artery Temporal Artery Pulse Oximetry (%) 97 96 Oxygen Delivery Method room air room air Intake Is patient in pain?: No Allergies vaccine adjuvant system, AS01B liposomal (From Shingrix (PF)) Allergy (Verified 12/01/24 11:36) Rash varicella-zoster virus glycoprotein E, recombinant (From Shingrix (PF)) Allergy (Verified 12/01/24 11:36) Rash Medications ?Medication ?Instructions ?Recorded ?Confirmed ?Type duloxetine 60 mg capsule,delayed 60 mg PO DAILY depres mana 11/25/13 12/01/24 History release lovastatin 40 mg tablet 40 mg PO DAILY hld 11/25/13 12/01/24 History cholecalciferol (vitamin D3) 125 5,000 unit PO DAILY s upplement 06/25/23 12/01/24 History mcg (5,000 unit) capsule levothyroxine 100 mcg tablet 100 mcg PO DAILY thyroid 06/25/23 12/01/24 History metformin 1,000 mg tablet 1,000 mg PO BID dm 06/25/23 12/01/24 History acetaminophen 500 mg capsule 500 mg PO Q6H PRN pain 12/01/24 History lidocaine-prilocaine 2.5 %-2.5 % 1 applic topical ONCE PRN port 05/17/24 12/01/24 Rx topical cream access 30 days #30 grams omeprazole 20 mg capsule,delayed 20 mg PO QDAY 5 12/01/24 History release fluticasone fur. 100 mcg-umeclid 1 inh inhalation ARNALDO Y asthma #3 ea 10/08/24 12/01/24 Rx 62.5 mcg-vilant 25 mcg inhalat.powder (Trelegy Ellipta) albuterol sulfate 90 mcg/actuation 2 puff inhalation Q 6H asthma #18 10/11/24 12/01/24 Rx aerosol inhaler (Ventolin HFA) grams L.acidophil,salivari-Bifido 1 cap PO BID 11/04/2407/27 History bifidum-Strep thermoph 175 mg capsule Have you fallen in the past year?: No Central Venous Access Central Venous Access: Yes Port/PICC: Port December 01, 2024 CBC, CMP reviewed in EMR Exam Physical Exam Narrative ECOG 1 Const alert, oriented x3 and no apparent distress General Appearance: cooperative and comfortable Nutritional Appearance: morbidly obese HEENT normocephalic Face and Sinus: normal facial exam Mouth: oral and palatal mucosa normal Teeth and Gingiva: dentures Eyes General Eye: normal appearance of both eyes Neck no lymphadenopathy and no JVD Chest Chest: vascular access Resp clear to auscultation bilaterally Auscultation: diminished lung sounds bilateral and diffuse Cardio regular rate and regular rhythm Jugular Venous Distention: Negative for JVD GI soft to palpation, non-tender and non-distended Back/Spine thoracic and lumbar spine normal to inspection Extremity General Extremity: Negative for clubbing, cyanosis or edema Skin no rashes or lesions noted Neuro oriented x3, CN's II-XII intact bilaterally, moves all extremities and no focal motor deficits Coordination / Balance: [id number] test normal Speech: speech normal Gait (Neuro): normal gait Psych mental status grossly normal Coding Level of Care Code Off vis,est,level 4 Exam Problem Focused Diagnoses Small cell lung cancer, left upper lobe C34.12 Regional lymph node metastasis present C77.9 Assessment and Plan Assessment and Plan (1) Small cell lung cancer, left upper lobe: Status: Chronic (2) 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 Disease was detected on lung cancer screening. Patient received concomitant chemo (cisplatin and etoposide) with radiation May 2024 followed by 4 cycles carboplatin etoposide June-July 2024. She was hospitalized July 02 - July 05, 2024 with acute diarrhea, acute dehydration, electrolyte imbalance, metabolic encephalopathy, suspected acute cystitis and recovered. Her disease appears to be in remission by imaging July 2024. Started durvalumab maintenance for 2 years August 2024, so far tolerated with no grade 3 or 4 toxicities. Chronic comorbid conditions: Morbid obesity, COPD, diabetes, grade 1 peripheral neuropathy from diabetes, obstructive sleep apnea, DJD, dyslipidemia, hypothyroidism. Plan: Based on NCCN guidelines and up-to-date review of treatment of limited stage small cell lung cancer: 1. Durvalumab maintenance for 2 years. Treatment is with curative intent. 2. Residual anemia post chemoradiation, no evidence for iron or B12 deficiencies, improved. 3. Elective imaging with CT scan chest and abdomen scheduled November 2024. Patient seen with her impression and plan discussed Maxi Merlos MD Behavioral Services Tech, [facility] Divisions of Medical Oncology & Hematology Department of Internal Medicine [place] [address] This note was generated using a voice recognition system software. Although itwas reviewed by the author prior to finalization, it may still contain incorrectwords, spelling, and punctuation that were not noted when reviewing prior to saving. If a clinically significant typo or inaccurately typed phrase is noted, please notify the author.. Clinical Quality Measures Falls Risk Screening/Assistive Devices Have you fallen in the past year?: No 12/01/24 1211 <Electronically signed by Maxi barajas MD> Date _ Maxi Merlos MD Cosigner Signature: Date (if applicable) CC: ~ [facility] Work Phone: 1(334) 546-370406-04-2025 Evaluation note* Diagnosis Onset Date Resolution Status Admit Date Regional lymph node metastasis present chronic November 03 11:04am Small cell lung cancer, left upper lobe chronic November 03, 2024 1 1:04am MARTELL (obstructive sleep apnea) chronic November 04, 2024 1 0:28am Small cell lung cancer, left upper lobe chronic November 16, 2024 1:03pm Regional lymph node metastasis present chronic December 01 10:58am Small cell lung cancer, left upper lobe chronic December 01, 2024 1 0:58am Regional lymph node metastasis present chronic December 29 10:27am Small cell lung cancer, left upper lobe chronic December 29, 2024 10:27am Regional lymph node metastasis present chronic January 26, 2025 11:10am Small cell lung cancer, left upper lobe chronic January 26 11:10am Blood in stool acute February 01, 2025 1:29pm Small cell lung cancer, left upper lobe chronic February 15, 2025 1:16pm [facility] Work Phone: 1(160) 751-623806-04-2025 Progress [facility] [address] OFFICE VISIT Date of Service: 11/03/24 1145 MR#: [id number] Acct: [id number] Name: ANDREA CALIX Rep #: [id number] : 1955 From: Maxi chau MD Age/Sex: 69/F Location: [facility] Status: Signed HPI Subjective Date of Service 11/03/24 Chief Complaint SCLC on treatment History of Present Illness 68-year-old female with small cell lung cancer. Disease was detected on lung cancer screening: November 26, [address]: IMPRESSION: New pulmonary nodules measuring up to 4 mm in the left upper lobe and 7 mm in the lingula. Lung-RADS category 4A. Recommend [address] follow-up. February 24, [address] chest: IMPRESSION: Interval increase in size of a noncalcified nodule left lung apex. Lung-RADS score: 4B - Very Suspicious. Recommend chest CT with or without contrast, PET/CT and/or tissue sampling depending on the probability of malignancy and comorbidities. April 26, 2024 bronchoscopy and EBUS at [facility]: A- lung, left upper lobe transbronchial FNA: Rare atypical cells cannot exclude neoplasm. B- mediastinal lymph node station 11R FNA: No malignant cells identified. C-mediastinal lymph node station 4R FNA: No malignant cells identified. D- mediastinal lymph node station 4L FNA: Positive for malignant cells, favor a high-grade neuroendocrine malignancy. E- mediastinal lymph node station 7 FNA: No malignant cells identified F-mediastinal lymph node station 11L FNA: No malignant cells identified. G-BAL left upper lobe cytology: Rare atypical cells April 30, 2024 PET/CT initial staging: IMPRESSION: 1. Enhanced labeled glucose defined in the left upper lung field, left upper lobe fulfills quantitative criteria for viable neoplasm with single point technique. Histopathologic analysis is recommended. (Hairston et al, Annals of Internal Medicine, 138:724, 2003) 2. Increased FDG concentration noted in the anterior and middle mediastinum aorticopulmonary window fulfills quantitative criteria for malignant transformation. (Herminio peters al, Journal of Clinical Oncology 16:2142, 1998) 3. Facilitated radiopharmaceutical manifest in the left and right lobe of the thyroid colloid does not fulfill quantitative criteria for primary thyroidal neoplastic transformation. Correlation with thyroid ultrasound may be of benefit. May 09, 2024 brain MRI staging: IMPRESSION: No MRI evidence of brain metastases. This is a negative MRI brain with and without contrast and no significant interval changes since 06/12/2010. August 10, 2024 brain MRI: IMPRESSION: No acute process or pathologic enhancement. August 23, 2024 CT chest and abdomen and treatment restaging: IMPRESSION: CT chest: 1. Decreased size of the left apical pulmonary nodule. 2. Persistent ground-glass opacification within the anterior left upper lobe, which is indeterminate in etiology and may represent infectious/inflammatory pneumonitis. Continued attention on follow- upimaging recommended. Treatment summary and response: * 05/17/2024 ? 06/10/2024: received definitive chemoradiation consisting of 5400 cGy delivered in 30 fractions twice daily with at least 4500 cGy close going to PTV that is overlapping or near esophagus and heart. She was treated using a VMAT plan with 6 MV photons. Patient received her first cycle of systemic chemotherapy (cisplatin etoposide) concomitantly. * June 14?July carboplatin and etoposide (3 cycles). * Durvalumab maintenance for 2 years August 2024-. [facility] Medical History Fatigue Encounter for antineoplastic immunotherapy History of lipoma Right upper limb pain Hypomagnesemia Drug induced neutropenia Hypokalemia Diarrhea Encounter for chemotherapy management Encounter for education Wears glasses Wears dentures Post-menopausal Cancer Thyroid disease Diabetes Arthritis Anemia High cholesterol Heartburn Gastric reflux Former smoker CPAP (continuous positive airway pressure) dependence Sleep apnea Leg cramps History of edema History of echocardiogram History of stress test Regional lymph node metastasis present Primary fibromyalgia syndrome Chondromalacia Chronic obstructive lung disease Depression Hyperlipidemia Vitamin D deficiency Hypothyroidism Localized swelling, mass and lump, unspecified MARTELL (obstructive sleep apnea) Dyspnea Right ankle pain Surgical History History of colonoscopy History of ankle surgery History of cataract extraction Family History Mother Heart disease CVA (cerebral vascular accident) Brain tumor Father Cancer Stomach Heart disease Social History Smoking Status: Former smoker quit date: 06/02/16 pack-years: 63 Tobacco: How many years used: 42 Electronic Cigarette Use: not used how long ago did patient quit smokin years second hand exposure: Yes quit status: quit date established alcohol intake: never substance use type: does not use ROS Constitutional Constitutional: Reports systems reviewed and no addt'l complaints, except as documented; Denies fatigue, fever(s) or weight loss Eyes Eyes: Reports systems reviewed and no addt'l complaints, except as documented; Denies change in vision ENT HEENT: Reports systems reviewed and no addt'l complaints, except as documented; Denies mouth lesions Cardiovascular Cardiovascular: Reports systems reviewed and no addt'l complaints, except as documented; Denies chest pain with activity or edema Respiratory/Chest Respiratory/Chest: Reports cough and dyspnea on exertion; Denies hemoptysis Gastrointestinal Gastrointestinal: Reports systems reviewed and no addt'l complaints, except as documented; Denies change in bowel habits, diarrhea, hematochezia or melena Genitourinary Genitourinary: Reports systems reviewed and no addt'l complaints, except as documented, urinary incontinence and other Details: Stress and urgency incontinence ; Denies hematuria Musculoskeletal Musculoskeletal: Reports systems reviewed and no addt'l complaints, except as documented and arthralgias Integumentary Integumentary: Reports systems reviewed and no addt'l complaints, except as documented; Denies new lesions Neurologic Neurologic: Reports systems reviewed and no addt'l complaints, except as documented; Denies focal weakness or paresthesias Psychiatric Psychiatric: Reports systems reviewed and no addt'l complaints, except as documented Endocrine Endocrinology: Reports systems reviewed and no addt'l complaints, except as documented Hematologic/Lymphatic Hematologic/Lymphatic: Reports systems reviewed and no addt'l complaints, exceptas documented Allergic/Immunologic Allergic/Immunologic: Reports systems reviewed and no addt'l complaints, except as documented Intake Vital Signs 09/08/24 08:20 11/03/24 11:46 11/03/24 11:51 Height 5 ft 4 in 5 ft 4 in 5 ft 4 in Weight: 91.342 kg BMI 34.5 BP 140/84 H Blood Pressure Location Lt brachial Position Sitting Respiration 18 Pulse 74 Pulse Source Monitor Temp 98.0 F Temperature Source Temporal Artery Pulse Oximetry (%) 98 Oxygen Delivery Method room air Intake Is patient in pain?: No Allergies vaccine adjuvant system, AS01B liposomal (From Shingrix (PF)) Allergy (Verified 11/03/24 11:49) Rash varicella-zoster virus glycoprotein E, recombinant (From Shingrix (PF)) Allergy (Verified 11/03/24 11:49) Rash Medications ?Medication ?Instructions ?Recorded ?Confirmed ?Type duloxetine 60 mg capsule,delayed 60 mg PO DAILY depres mana 11/25/13 11/03/24 History release lovastatin 40 mg tablet 40 mg PO DAILY hld 11/25/13 11/03/24 History cholecalciferol (vitamin D3) 125 5,000 unit PO DAILY s upplement 06/25/23 11/03/24 History mcg (5,000 unit) capsule levothyroxine 100 mcg tablet 100 mcg PO DAILY thyroid 06/25/23 11/03/24 History metformin 1,000 mg tablet 1,000 mg PO BID dm 06/25/23 11/03/24 History acetaminophen 500 mg capsule 500 mg PO Q6H PRN pain 11/03/24 History lidocaine-prilocaine 2.5 %-2.5 % 1 applic topical ONCE PRN port 05/17/24 11/03/24 Rx topical cream access 30 days #30 grams L.acidophil,salivari-Bifido 1 cap PO BID #0 caps 07/0511/03/24 Rx bifidum-Strep thermoph 175 mg capsule sennosides 8.6 mg-docusate sodium 2 tab PO BID #0 tabs 07/05/24 11/03/24 Rx 50 mg tablet (Stimulant Laxative Plus) omeprazole 20 mg capsule,delayed 20 mg PO QDAY 5 11/03/24 History release fluticasone fur. 100 mcg-umeclid 1 inh inhalation ARNALDO Y asthma #3 ea 10/08/24 11/03/24 Rx 62.5 mcg-vilant 25 mcg inhalat.powder (Trelegy Ellipta) albuterol sulfate 90 mcg/actuation 2 puff inhalation Q 6H asthma #18 10/11/24 11/03/24 Rx aerosol inhaler (Ventolin HFA) grams Have you fallen in the past year?: No Central Venous Access Central Venous Access: Yes Port/PICC: Port CBC, CMP drawn 09/19/2024 reviewed in EMR Exam Physical Exam Narrative ECOG 1 Const alert, oriented x3 and no apparent distress General Appearance: cooperative and comfortable Nutritional Appearance: morbidly obese HEENT normocephalic Face and Sinus: normal facial exam Mouth: oral and palatal mucosa normal Teeth and Gingiva: dentures Eyes General Eye: normal appearance of both eyes Neck no lymphadenopathy and no JVD Chest Chest: vascular access Resp clear to auscultation bilaterally Auscultation: diminished lung sounds bilateral and diffuse Cardio regular rate and regular rhythm Jugular Venous Distention: Negative for JVD GI soft to palpation, non-tender and non-distended Back/Spine thoracic and lumbar spine normal to inspection Extremity General Extremity: Negative for clubbing, cyanosis or edema Skin no rashes or lesions noted Neuro oriented x3, CN's II-XII intact bilaterally, moves all extremities and no focal motor deficits Coordination / Balance: [id number] test normal Speech: speech normal Gait (Neuro): normal gait Psych mental status grossly normal Coding Level of Care Code Off vis,est,level 4 Exam Problem Focused Diagnoses Small cell lung cancer, left upper lobe C34.12 Regional lymph node metastasis present C77.9 Assessment and Plan Assessment and Plan (1) Small cell lung cancer, left upper lobe: Status: Chronic (2) 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 Disease was detected on lung cancer screening. Patient received concomitant chemo (cisplatin and etoposide) with radiation May 2024 followed by 4 cycles carboplatin etoposide June-July 2024. She was hospitalized July 02 - July 05, 2024 with acute diarrhea, acute dehydration, electrolyte imbalance, metabolic encephalopathy, suspected acute cystitis and recovered. Her disease appears to be in remission by imaging July 2024. Started durvalumab maintenance for 2 years August 2024, so far tolerated with no grade 3 or 4 toxicities. Chronic comorbid conditions: Morbid obesity, COPD, diabetes, grade 1 peripheral neuropathy from diabetes, obstructive sleep apnea, DJD, dyslipidemia, hypothyroidism. Plan: Based on NCCN guidelines and up-to-date review of treatment of limited stage small cell lung cancer: 1. Durvalumab maintenance for 2 years. Treatment is with curative intent. 2. Residual anemia post chemoradiation, no evidence for iron or B12 deficiencies, improved. 3. Elective imaging with CT scan chest and abdomen end of October/early November 2024. Patient seen with her impression and plan discussed Maxi Merlos MD Behavioral Services Tech, [facility] Divisions of Medical Oncology & Hematology Department of Internal Medicine [place] [address] This note was generated using a voice recognition system software. Although itwas reviewed by the author prior to finalization, it may still contain incorrectwords, spelling, and punctuation that were not noted when reviewing prior to saving. If a clinically significant typo or inaccurately typed phrase is noted, please notify the author.. Clinical Quality Measures Falls Risk Screening/Assistive Devices Have you fallen in the past year?: No 11/03/24 1211 karl MARSH> Date _ [facility] Cosigner Signature: Date (if applicable) CC: ~ [facility]05-07-2025 Evaluation note* Diagnosis Onset Date Resolution Status Admit Date Encounter for antineoplastic immunotherapy acute October 06, 2024 10 :32am 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 October 06, 2024 10 :32am Small cell lung cancer, left upper lobe chronic October 06, 2024 10 :32am 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 November 03, 2024 1 1:04am Small cell lung cancer, left upper lobe chronic November 03, 2024 1 1:04am MARTELL (obstructive sleep apnea) chroni c November 04, 2024 10:28am Small cell lung cancer, left upper lobe chronic November 16, 2024 1:03pm 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 December 01, 2024 1 0:58am Small cell lung cancer, left upper lobe chronic December 01, 2024 1 0:58am 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 December 29, 2024 10:27am Small cell lung cancer, left upper lobe chronic December 29, 2024 10:27am 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 January 26 11:10am Small cell lung cancer, left upper lobe chronic January 26 11:10am [employer] [facility] Work Phone: 1(347) 417-960005-07-2025 Evaluation note* Diagnosis Onset Date Resolution Status Admit Date Encounter for antineoplastic immunotherapy acute October 06, 2024 10 :32am 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 October 06, 2024 10 :32am Small cell lung cancer, left upper lobe chronic October 06, 2024 10 :32am 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 November 03, 2024 1 1:04am Small cell lung cancer, left upper lobe chronic November 03, 2024 1 1:04am MARTELL (obstructive sleep apnea) chroni c November 04, 2024 10:28am Small cell lung cancer, left upper lobe chronic November 16, 2024 1:03pm 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 December 01, 2024 1 0:58am Small cell lung cancer, left upper lobe chronic December 01, 2024 1 0:58am 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 December 29, 2024 10:27am Small cell lung cancer, left upper lobe chronic December 29, 2024 10:27am 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 January 26 11:10am Small cell lung cancer, left upper lobe chronic January 26 11:10am Blood in stool acute February 01, 2025 1:29pm Jud [facility] Work Phone: 1(606) 947-177204-09-2025 Evaluation note* Diagnosis Onset Date Resolution Status Admit Date Encounter for antineoplastic immunotherapy acute September 08, 2024 7:37am 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 September 08, 2024 7:37am Small cell lung cancer, left upper lobe chronic September 08, 2024 7:37am Encounter for antineoplastic immunotherapy acute October 06, 2024 10 :32am 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 October 06, 2024 10 :32am Small cell lung cancer, left upper lobe chronic October 06, 2024 10 :32am 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 November 03, 2024 1 1:04am Small cell lung cancer, left upper lobe chronic November 03, 2024 1 1:04am MARTELL (obstructive sleep apnea) chroni c November 04, 2024 10:28am Small cell lung cancer, left upper lobe chronic November 16, 2024 1:03pm 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 December 01, 2024 1 0:58am Small cell lung cancer, left upper lobe chronic December 01, 2024 1 0:58am [facility] Work Phone: 1(982) 913-983104-09-2025 Evaluation note* Diagnosis Onset Date Resolution Status Admit Date Encounter for antineoplastic immunotherapy acute September 08, 2024 7:37am 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 September 08, 2024 7:37am Small cell lung cancer, left upper lobe chronic September 08, 2024 7:37am Encounter for antineoplastic immunotherapy acute October 06, 2024 10 :32am 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 October 06, 2024 10 :32am Small cell lung cancer, left upper lobe chronic October 06, 2024 10 :32am 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 November 03, 2024 1 1:04am Small cell lung cancer, left upper lobe chronic November 03, 2024 1 1:04am MARTELL (obstructive sleep apnea) chroni c November 04, 2024 10:28am Small cell lung cancer, left upper lobe chronic November 16, 2024 1:03pm 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 December 01, 2024 1 0:58am Small cell lung cancer, left upper lobe chronic December 01, 2024 1 0:58am 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 December 29, 2024 10:27am Small cell lung cancer, left upper lobe chronic December 29, 2024 10:27am [facility] Work Phone: 1(461) 583-432603-10-2025 Evaluation note* Diagnosis Onset Date Resolution Status Admit Date Anemia acute August 09 12:35pm Hypomagnesemia acute July 12:35pm 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 August 09, 2024 12:35pm Small cell lung cancer, left upper lobe chronic August 09, 2024 12:35pm Hypokalemia resolved August 09, 12:35pm Small cell lung cancer, left upper lobe chronic August 12, 2024 9:36am Chronic obstructive lung disease chr onic August 13, 2024 12:30pm MARTELL (obstructive sleep apnea) chroni c August 13, 2024 12:30pm Small cell lung cancer, left upper lobe chronic August 13, 2024 12:30pm Anemia acute August 18 2:10pm Hypomagnesemia acute July 2:10pm Right upper limb pain acute Jul 2:10pm 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 August 18, 2024 2:10pm Small cell lung cancer, left upper lobe chronic August 18, 2024 2:10pm History of lipoma acute August 012024 8:38am 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 August 25, 2024 2:33pm Small cell lung cancer, left upper lobe chronic August 25, 2024 2:33pm Encounter for education acute 2024 3:23pm 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 August 30, 2024 3:23pm Small cell lung cancer, left upper lobe chronic August 30, 2024 3:23pm Encounter for antineoplastic immunotherapy acute September 08, 2024 7:37am 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 September 08, 2024 7:37am Small cell lung cancer, left upper lobe chronic September 08, 2024 7:37am Encounter for antineoplastic immunotherapy acute October 06, 2024 10 :32am 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 October 06, 2024 10 :32am Small cell lung cancer, left upper lobe chronic October 06, 2024 10 :32am 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 November 03, 2024 1 1:04am Small cell lung cancer, left upper lobe chronic November 03, 2024 1 1:04am MARTELL (obstructive sleep apnea) chroni c November 04, 2024 10:28am Small cell lung cancer, left upper lobe chronic November 16, 2024 1:03pm 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 December 01, 2024 1 0:58am Small cell lung cancer, left upper lobe chronic December 01, 2024 1 0:58am [facility] Work Phone: 1(651) 147-280302-18-2025 Evaluation note* Diagnosis Onset Date Resolution Status Admit Date 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 July 20, 025 9:45am Small cell lung cancer, left upper lobe chronic July 20 025 9:45am Hypokalemia resolved July 9:45am Anemia acute July 26, 2024 7:32am Encounter for chemotherapy management acute July 26 025 7:32am Hypomagnesemia acute July 042024 7:32am 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 July 26, 025 7:32am Small cell lung cancer, left upper lobe chronic July 26 025 7:32am Hypokalemia resolved July 7:32am Anemia acute August 02 1:11pm Encounter for chemotherapy management acute August 02, 2024 1:11pm Hypomagnesemia acute August 02, 2024 1:11pm Regional lymph node metastas is present August 02, 2024 1:11pm Small cell lung cancer, left upper lobe chronic August 02, 2024 1:11pm Hypokalemia resolved August 02 1:11pm Anemia acute August 09 12:35pm Hypomagnesemia acute July 12:35pm 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 August 09, 2024 12:35pm Small cell lung cancer, left upper lobe chronic August 09, 2024 12:35pm Hypokalemia resolved August 09 12:35pm Small cell lung cancer, left upper lobe chronic August 12, 2024 9:36am Chronic obstructive lung disease chronic August 13, 2024 12:30pm MARTELL (obstructive sleep apnea) chroni c August 13, 2024 12:30pm Small cell lung cancer, left upper lobe chronic August 13, 2024 12:30pm Anemia acute August 18 2:10pm Hypomagnesemia acute July 2:10pm Right upper limb pain acute Jul 2:10pm 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 August 18, 2024 2:10pm Small cell lung cancer, left upper lobe chronic August 18, 2024 2:10pm History of lipoma acute August 012024 8:38am 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 August 25, 2024 2:33pm Small cell lung cancer, left upper lobe chronic August 25, 2024 2:33pm Encounter for education acute 2024 3:23pm 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 August 30, 2024 3:23pm Small cell lung cancer, left upper lobe chronic August 30, 2024 3:23pm Encounter for antineoplastic immunotherapy acute September 08, 2024 7:37am 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 Elizabeth 9th, 2025 7:37am Small cell lung cancer, left upper lobe chronic September 08, 2024 7:37am Encounter for antineoplastic immunotherapy acute October 06, 2024 10 :32am 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 October 06, 2024 10 :32am Small cell lung cancer, left upper lobe chronic October 06, 2024 10 :32am 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 November 03, 2024 1 1:04am Small cell lung cancer, left upper lobe chronic November 03, 2024 1 1:04am MARTELL (obstructive sleep apnea) chroni c November 04, 2024 10:28am [facility] Work Phone: 1(175) 237-889502-18-2025 Evaluation note* Diagnosis Onset Date Resolution Status Admit Date 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 July 20, 025 9:45am Small cell lung cancer, left upper lobe chronic July 20 025 9:45am Hypokalemia resolved July 9:45am Anemia acute July 26, 2024 7:32am Encounter for chemotherapy management acute July 26 7:32am Hypomagnesemia acute July 042024 7:32am 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 July 26 7:32am Small cell lung cancer, left upper lobe chronic July 26 7:32am Hypokalemia resolved July 7:32am Anemia acute August 02 1:11pm Encounter for chemotherapy management acute August 02, 2024 1:11pm Hypomagnesemia acute August 02, 2024 1:11pm 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 August 02, 2024 1:11pm Small cell lung cancer, left upper lobe chronic August 02, 2024 1:11pm Hypokalemia resolved August 02 1:11pm Anemia acute August 09 12:35pm Hypomagnesemia acute July 12:35pm 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 August 09, 2024 12:35pm Small cell lung cancer, left upper lobe chronic August 09, 2024 12:35pm Hypokalemia resolved August 09 12:35pm Small cell lung cancer, left upper lobe chronic August 12, 2024 9:36am Chronic obstructive lung disease chronic August 13, 2024 12:30pm MARTELL (obstructive sleep apnea) chroni c August 13, 2024 12:30pm Small cell lung cancer, left upper lobe chronic August 13, 2024 12:30pm Anemia acute August 18 2:10pm Hypomagnesemia acute July 2:10pm Right upper limb pain acute Jul 2:10pm 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 August 18, 2024 2:10pm Small cell lung cancer, left upper lobe chronic August 18, 2024 2:10pm History of lipoma acute August 012024 8:38am 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 August 25, 2024 2:33pm Small cell lung cancer, left upper lobe chronic August 25, 2024 2:33pm Encounter for education acute 2024 3:23pm 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 August 30, 2024 3:23pm Small cell lung cancer, left upper lobe chronic August 30, 2024 3:23pm Encounter for antineoplastic immunotherapy acute September 08, 2024 7:37am 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 September 08, 2024 7:37am Small cell lung cancer, left upper lobe chronic September 08, 2024 7:37am Encounter for antineoplastic immunotherapy acute October 06, 2024 10 :32am 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 October 06, 2024 10 :32am Small cell lung cancer, left upper lobe chronic October 06, 2024 10 :32am 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 November 03, 2024 1 1:04am Small cell lung cancer, left upper lobe chronic November 03, 2024 1 1:04am MARTELL (obstructive sleep apnea) chroni c November 04, 2024 10:28am Small cell lung cancer, left upper lobe chronic November 16, 2024 1:03pm [facility] Work Phone: 1(370) 445-181102-10-2025 Evaluation note* Diagnosis Onset Date Resolution Status Admit Date Small cell lung cancer, left upper lobe chronic July 12 025 9:44am Anemia acute July 13, 2024 9:37am Drug induced neutropenia acute July 13, 2024 9:37am 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 July 13, 025 9:37am Small cell lung cancer, left upper lobe chronic July 13 025 9:37am 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 July 20, 025 9:45am Small cell lung cancer, left upper lobe chronic July 20 025 9:45am Hypokalemia resolved July 9:45am Anemia acute July 26, 2024 7:32am Encounter for chemotherapy management acute July 26, 025 7:32am Hypomagnesemia acute July 042024 7:32am 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 July 26 025 7:32am Small cell lung cancer, left upper lobe chronic July 26 025 7:32am Hypokalemia resolved July 7:32am Anemia acute August 02 1:11pm Encounter for chemotherapy management acute August 02, 2024 1:11pm Hypomagnesemia acute August 02, 2024 1:11pm 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 August 02, 2024 1:11pm Small cell lung cancer, left upper lobe chronic August 02, 2024 1:11pm Hypokalemia resolved August 02 1:11pm Anemia acute August 09 12:35pm Hypomagnesemia acute July 12:35pm 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 August 09, 2024 12:35pm Small cell lung cancer, left upper lobe chronic August 09, 2024 12:35pm Hypokalemia resolved August 09 12:35pm Small cell lung cancer, left upper lobe chronic August 12, 2024 9:36am Chronic obstructive lung disease chronic August 13, 2024 12:30pm MARTELL (obstructive sleep apnea) chroni c August 13, 2024 12:30pm Small cell lung cancer, left upper lobe chronic August 13, 2024 12:30pm Anemia acute August 18 2:10pm Hypomagnesemia acute July 2:10pm Right upper limb pain acute Jul 2:10pm 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 August 18, 2024 2:10pm Small cell lung cancer, left upper lobe chronic August 18, 2024 2:10pm History of lipoma acute August 012024 8:38am 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 August 25, 2024 2:33pm Small cell lung cancer, left upper lobe chronic August 25, 2024 2:33pm Encounter for education acute M 2024 3:23pm 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 August 30, 2024 3:23pm Small cell lung cancer, left upper lobe chronic August 30, 2024 3:23pm Encounter for antineoplastic immunotherapy acute September 08, 2024 7:37am 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 September 08, 2024 7:37am Small cell lung cancer, left upper lobe chronic September 08, 2024 7:37am Encounter for antineoplastic immunotherapy acute October 06, 2024 10 :32am 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 October 06, 2024 10 :32am Small cell lung cancer, left upper lobe chronic October 06, 2024 10 :32am 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 November 03, 2024 1 1:04am Small cell lung cancer, left upper lobe chronic November 03, 2024 1 1:04am [facility] Work Phone: 1(864) 753-192902-04-2025 Evaluation note* Diagnosis Onset Date Resolution Status Admit Date Encounter for chemotherapy management acute July 06 7:39am 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 July 06 7:39am Small cell lung cancer, left upper lobe chronic July 06 7:39am Small cell lung cancer, left upper lobe chronic July 12 025 9:44am Anemia acute July 13, 2024 9:37am Drug induced neutropenia acute July 13, 2024 9:37am 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 July 13, 2 025 9:37am Small cell lung cancer, left upper lobe chronic July 13 2 025 9:37am 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 July 20, 2 025 9:45am Small cell lung cancer, left upper lobe chronic July 20, 2 025 9:45am Hypokalemia resolved July 9:45am Anemia acute July 26, 2024 7:32am Encounter for chemotherapy management acute July 26, 2 025 7:32am Hypomagnesemia acute July 042024 7:32am 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 July 26, 2 025 7:32am Small cell lung cancer, left upper lobe chronic July 26, 2 025 7:32am Hypokalemia resolved July 7:32am Anemia acute August 02 1:11pm Encounter for chemotherapy management acute August 02, 2024 1:11pm Hypomagnesemia acute August 02, 2024 1:11pm 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 August 02, 2024 1:11pm Small cell lung cancer, left upper lobe chronic August 02, 2024 1:11pm Hypokalemia resolved August 02 1:11pm Anemia acute August 09 12:35pm Hypomagnesemia acute July 12:35pm 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 August 09, 2024 12:35pm Small cell lung cancer, left upper lobe chronic August 09, 2024 12:35pm Hypokalemia resolved August 09 12:35pm Small cell lung cancer, left upper lobe chronic August 12, 2024 9:36am Chronic obstructive lung disease chronic August 13, 2024 12:30pm MARTELL (obstructive sleep apnea) chroni c August 13, 2024 12:30pm Small cell lung cancer, left upper lobe chronic August 13, 2024 12:30pm Anemia acute August 18 2:10pm Hypomagnesemia acute July 2:10pm Right upper limb pain acute Jul 2:10pm 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 August 18, 2024 2:10pm Small cell lung cancer, left upper lobe chronic August 18, 2024 2:10pm History of lipoma acute August 012024 8:38am Regional lymph node metastas is present August 25, 2024 2:33pm Small cell lung cancer, left upper lobe chronic August 25, 2024 2:33pm Encounter for education acute M 2024 3:23pm 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 August 30, 2024 3:23pm Small cell lung cancer, left upper lobe chronic August 30, 2024 3:23pm Encounter for antineoplastic immunotherapy acute September 08, 2024 7:37am 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 September 08, 2024 7:37am Small cell lung cancer, left upper lobe chronic September 08, 2024 7:37am Encounter for antineoplastic immunotherapy acute October 06, 2024 10 :32am 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 October 06, 2024 10 :32am Small cell lung cancer, left upper lobe chronic October 06, 2024 10 :32am 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 November 03, 2024 1 1:04am Small cell lung cancer, left upper lobe chronic November 03, 2024 1 1:04am [facility] Work Phone: 1(234) 735-430902-03-2025 [facility]01-27-2025 Evaluation note* Diagnosis Onset Date Resolution Status Admit Date Hypokalemia acute June 28, 2024 12:42pm 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 June 28 12:42pm Small cell lung cancer, left upper lobe chronic June 28 12:42pm Acute cystitis without hematuria acute July 02 8:14pm Acute metabolic encephalopathy acute July 02, 2024 8:14pm Adverse drug reaction acute Trevor uary 2024 8:14pm Confusion acute July 02, 2024 8:14pm Dysphagia acute July 02, 2024 8:14pm Failed prior treatment for drug use acute July 02 8:14pm Hypokalemia resolved July 02, 2024 8:14pm Hypomagnesemia acute July 022024 8:14pm Nausea acute July 02, 2024 8:14pm Obesity (BMI 30.0-34.9) acute J anuary 2024 8:14pm Small cell lung cancer, left upper lobe chronic July 02 8:14pm Encounter for chemotherapy management acute July 06 7:39am 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 July 06 7:39am Small cell lung cancer, left upper lobe chronic July 06 7:39am Small cell lung cancer, left upper lobe chronic July 12 9:44am Anemia acute July 13, 2024 9:37am Drug induced neutropenia acute July 13, 2024 9:37am 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 July 13 025 9:37am Small cell lung cancer, left upper lobe chronic July 13 025 9:37am 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 July 20 025 9:45am Small cell lung cancer, left upper lobe chronic July 20 025 9:45am Hypokalemia resolved July 9:45am Anemia acute July 26, 2024 7:32am Encounter for chemotherapy management acute July 26, 025 7:32am Hypomagnesemia acute July 042024 7:32am 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 July 26, 2 025 7:32am Small cell lung cancer, left upper lobe chronic July 26, 2 025 7:32am Hypokalemia resolved July 7:32am Anemia acute August 02 1:11pm Encounter for chemotherapy management acute August 02, 2024 1:11pm Hypomagnesemia acute August 02, 2024 1:11pm 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 August 02, 2024 1:11pm Small cell lung cancer, left upper lobe chronic August 02, 2024 1:11pm Hypokalemia resolved August 02 1:11pm Anemia acute August 09 12:35pm Hypomagnesemia acute July 12:35pm Regional lymph node metastas is present August 09, 2024 12:35pm Small cell lung cancer, left upper lobe chronic August 09, 2024 12:35pm Hypokalemia resolved August 09 12:35pm Small cell lung cancer, left upper lobe chronic August 12, 2024 9:36am Chronic obstructive lung disease chronic August 13, 2024 12:30pm MARTELL (obstructive sleep apnea) chroni c August 13, 2024 12:30pm Small cell lung cancer, left upper lobe chronic August 13, 2024 12:30pm Anemia acute August 18 2:10pm Hypomagnesemia acute July 2:10pm Right upper limb pain acute Jul 2:10pm 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 August 18, 2024 2:10pm Small cell lung cancer, left upper lobe chronic August 18, 2024 2:10pm History of lipoma acute August 012024 8:38am 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 August 25, 2024 2:33pm Small cell lung cancer, left upper lobe chronic August 25, 2024 2:33pm Encounter for education acute arch 2024 3:23pm 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 August 30, 2024 3:23pm Small cell lung cancer, left upper lobe chronic August 30, 2024 3:23pm Encounter for antineoplastic immunotherapy acute September 08, 2024 7:37am 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 September 08, 2024 7:37am Small cell lung cancer, left upper lobe chronic September 08, 2024 7:37am Encounter for antineoplastic immunotherapy acute October 06, 2024 10 :32am 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 October 06, 2024 10 :32am Small cell lung cancer, left upper lobe chronic October 06, 2024 10 :32am [facility] Work Phone: 1(361) 197-785312-31-2024 [facility]12-12-2024 [facility]12-03-2024 Evaluation note* Diagnosis Onset Date Resolution Status Admit Date Small cell lung cancer, left upper lobe acute May 04 1:15pm Chronic obstructive lung disease chronic May 04 1:15pm MARTELL (obstructive sleep apnea) chroni c May 04, 2024 1:15pm Regional lymph node metastas is present acute May 05 1:25pm Small cell lung cancer, left upper lobe acute May 05 1:25pm Encounter for insertion of venous access port acute May 07, 2024 12:55pm Small cell lung cancer, left upper lobe acute May 07 12:55pm Regional lymph node metastas is present acute May 11, 024 1:31pm Small cell lung cancer, left upper lobe acute May 11, 024 1:31pm Encounter for chemotherapy management acute May 17, 2 024 7:41am Encounter for education acute D ecember 2023 7:41am Regional lymph node metastas is present acute May 17, 2 024 7:41am Small cell lung cancer, left upper lobe acute May 17, 2 024 7:41am Small cell lung cancer, left upper lobe acute May 18, 2 024 8:03am Small cell lung cancer, left upper lobe acute May 21, 2 024 8:10am Small cell lung cancer, left upper lobe acute May 24, 2 024 2:09pm Neutropenic fever resolved Decembe r 2023 4:18pm Sepsis resolved May 30, 2024 4:18pm Small cell lung cancer, left upper lobe acute June 03 8:33am Small cell lung cancer, left upper lobe acute June 08 8:08am Small cell lung cancer, left upper lobe acute June 10 2:11pm Encounter for chemotherapy management acute June 14 7:35am Regional lymph node metastas is present acute June 14 7:35am Small cell lung cancer, left upper lobe acute June 14 7:35am Hypokalemia acute June 28, 2024 12:42pm Regional lymph node metastas is present acute June 28 12:42pm Small cell lung cancer, left upper lobe acute June 28 12:42pm Acute cystitis without hematuria acute July 02 8:14pm Acute metabolic encephalopathy acute July 02, 2024 8:14pm Adverse drug reaction acute Trevor uary 2024 8:14pm Confusion acute July 02, 2024 8:14pm Dysphagia acute July 02, 2024 8:14pm Failed prior treatment for drug use acute July 02 8:14pm Hypokalemia acute July 02, 2024 8:14pm Hypomagnesemia acute July 022024 8:14pm Nausea acute July 02, 2024 8:14pm Obesity (BMI 30.0-34.9) acute J anuary 2024 8:14pm Small cell lung cancer, left upper lobe acute July 02 8:14pm Encounter for chemotherapy management acute July 06 7:39am Regional lymph node metastas is present acute July 06 7:39am Small cell lung cancer, left upper lobe acute July 06 7:39am Small cell lung cancer, left upper lobe acute July 12 025 9:44am Anemia acute July 13, 2024 9:37am Drug induced neutropenia acute July 13, 2024 9:37am Regional lymph node metastas is present acute July 13 2 025 9:37am Small cell lung cancer, left upper lobe acute July 13 2 025 9:37am Hypokalemia acute July 9:45am Regional lymph node metastas is present acute July 20, 2 025 9:45am Small cell lung cancer, left upper lobe acute July 20, 2 025 9:45am Anemia acute July 26, 2024 7:32am Encounter for chemotherapy management acute July 26 2 025 7:32am Hypokalemia acute July 7:32am Hypomagnesemia acute July 042024 7:32am Regional lymph node metastas is present acute July 26, 025 7:32am Small cell lung cancer, left upper lobe acute July 26 025 7:32am Anemia acute August 02 1:11pm Encounter for chemotherapy management acute August 02, 2024 1:11pm Hypokalemia acute August 02 1:11pm Hypomagnesemia acute August 02, 2024 1:11pm Regional lymph node metastas is present acute August 02, 2024 1:11pm Small cell lung cancer, left upper lobe acute August 02, 2024 1:11pm Anemia acute August 09 12:35pm Hypokalemia acute August 09 12:35pm Hypomagnesemia acute July 12:35pm Regional lymph node metastas is present acute August 09, 2024 12:35pm Small cell lung cancer, left upper lobe acute August 09, 2024 12:35pm Small cell lung cancer, left upper lobe acute August 12, 2024 9:36am Small cell lung cancer, left upper lobe acute August 13, 2024 12:30pm Chronic obstructive lung disease chronic August 13, 2024 12:30pm MARTELL (obstructive sleep apnea) chroni c August 13, 2024 12:30pm Anemia acute August 18 2:10pm Hypomagnesemia acute July 2:10pm Regional lymph node metastas is present acute August 18, 2024 2:10pm Right upper limb pain acute Jul 2:10pm Small cell lung cancer, left upper lobe acute August 18, 2024 2:10pm [facility] Work Phone: 1(376) 162-518112-03-2024 Telephone encounter Note* Telephone Encounter - Alka Talbot RCP - 05/04/2024 1:58 PM EST Called patient by phone to discuss plans for follow-up. At the time of our call, patient was in the oncology office at [facility]. Navigator was able to speak with providers at the cancer center ([facility]). They are aware of recommendations for MRI brain, med onc, rad onc appointments and appointments are being scheduled at thistime. Navigator faxed conference recommendations and path reports to providers at [phone]. Provided navigator contact information in case they have additional questions. [id number] Miscellaneous Notes* Telephone Encounter - Alka Talbot RCP - 05/04/2024 1:58 PM EST Called patient by phone to discuss plans for follow-up. At the time of our call, patient was in the oncology office at [facility]. Navigator was able to speak with providers at the cancer center ([facility]). They are aware of recommendations for MRI brain, med onc, rad onc appointments and appointments are being scheduled at thistime. Navigator faxed conference recommendations and path reports to providers at [phone]. Provided navigator contact information in case they have additional questions. * Telephone Encounter - Jarek Vu MD - 05/04/2024 9:19 AM EST Spoke with patient regarding bronchoscopy results. 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 Reviewed at thoracic conference. Nodule enlarged rapidly and significantly and is very PET avid. Positive findings are from left paratracheal lymph node. Patient lives in [place]. Navigator to coordinate referrals to med onc and rad onc as well as MRI brain through referring [place] pulmonary practice assuming patient desires cancer care closer to home. documented in this [facility]12-03-2024 Telephone encounter Note* Telephone Encounter - Jarek Vu MD - 05/04/2024 9:19 AM EST Spoke with patient regarding bronchoscopy results. 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 Reviewed at thoracic conference. Nodule enlarged rapidly and significantly and is very PET avid. Positive findings are from left paratracheal lymph node. Patient lives in [place]. Navigator to coordinate referrals to med onc and rad onc as well as MRI brain through referring [place] pulmonary practice assuming patient desires cancer care closer to home. [facility] Work Phone: 1(874) 111-506412-03-2024 History of Present illness Narrative* Alka ALLY Talbot - 05/04/2024 9:03 AM EST THORACIC ONCOLOGY AND LUNG NODULE TUMOR BOARD RECOMMENDATIONS Consensus Recommendation Summary Privileged Information TUMOR BOARD CLINICAL SUMMARY Basic Demographic Information Andrea Ignacioadden Date of presentation : 05/04/24 1955 Presenting physician: Dr. Jarek Vu 68 y.o. [] Previous presentation date : Presentation Type [x] Prospective [] Retrospective [] Nodule Brief Clinical Summary & Tumor Board Recommendations 2 Diagnosis Small Cell Ca Presenter: Dr. Vu Screenin11/26/23; 11/12/22; 11/09/21; 10/26/19 @ [place] (in PACS) Name Andrea Calix Surgeon: CTC: 04/21/24; 02/24/20 MR#/Epic [id number] Oncologist: CTAP: /Age [birth year] 68 yo Rad Oncologist: MRI: Gender Female Cartographic Drafter: Dr. Bentley Reyes/ Cristiana Linton, [employer] HELPER ([place]); Dr. Vu PET: 03/30/24 @ [place] (in PACS) Smoking History: ? Former > 20 pk yr Quit 2016 PCP: DIPTI Willis PFT: 02/08/20 @ [place] ?Prospective []Retrospective Other: PATH: EBUS/ENB 04/26/24; CT BX 03/23/24 @ [place] (unsuccessful) Clinical Stage:IIIA T1c N2 M Path Stage: T N M Other: Brief Summary: Undergoing annual lung screening at [facility] since 2019. Screening 11/26/23 with Rads 4A findings. Referred to [place] [facility] and sent for CT lung biopsy which was unsuccessful due to bony prominences. Sent for PET scan then referred to [facility] for EBUS/ENB. Now presents to review imaging, path, and plan of care. Recommendations: 1. MRI Brain 2. Med Onc Eval 3. Rad Onc Eval Available Protocol Recommendation [] Yes Protocol: Report Completed by Alka Talbot RCP 05/04/2024 Thoracic Tumor Board Moderator-Keren Pace DO Recommendations from Tumor Conference are based on national evidence based guidelines. The plan used by the managing physician(s) may vary based on the status of the individual patient and the reports results made available at time of presentation. We recognize that this data set may change and that the final treatment plan may differ from this recommendation. documented in this [facility]11-25-2024 Miscellaneous Notes* Perioperative Nursing Note - Lamar Rich RN - 04/26/2024 12:10 PM EST Home going instructions given with verbal explanation. Stated understanding. Dentures and glasses returned to patient from belongings bag. * Op Note - Jarek Vu MD - 04/26/2024 7:44 AM [facility] Andrea Calix Procedure Date: 04/26/2024 7:44 AM Gender: Female Date of : 1955 Age: 68 Admit Type: Outpatient Note Status: Finalized Attending MD: Jarek Vu MD, [id number] Procedure: Bronchoscopy Indications: Left upper lobe nodule, Paratracheal adenopathy Findings: Bilateral Lung Abnormalities: Notable, white, thick secretions were found throughout the tracheobronchial tree. They were partially obstructing the airway. An area of friable mucosa was found throughout the tracheobronchial tree. Electromagnetic navigation bronchoscopy utilizing the ULTRA Testing system was performed. A pre-procedure CT scan was used for planning purposes. A virtual bronchoscopic image was generated using the planning software. The target in the left upper lobe was marked. A nodule 1.8 cm in size was found and a pathway was created. After a complete airway exam, the locatable guide/extended working channel was inserted. The navigation phase was then begun to locate the target lesion(s). The locatable guide was removed from the extended working channel. A transbronchial needle aspiration of a nodule was performed in the left upper lobe using a fine needle and sent for routine cytology. The procedure was guided by fluoroscopy. Transbronchial needle aspiration technique was selected because the sampling site was not visible endoscopically. One sample was obtained. A transbronchial biopsy of a nodule was performed in the left upper lobe using forceps and sent for routine cytology. The procedure was guided by fluoroscopy. Transbronchial biopsy technique was selected because the sampling site was not visible endoscopically. Seven biopsy passes were performed. One biopsy sample was obtained. Fluoroscopy guided transbronchial brushings of a nodule were obtained in the left upper lobe with a cytology brush and sent for routine cytology. One sample was obtained. Transbronchial brushing technique was selected because the sampling site was not visible endoscopically. The bronchoscope was advanced until wedged at the desired location for bronchoalveolar lavage. BAL was performed in the left upper lobe of the lung and sent for routine cytology and bacterial, AFB and fungal analysis. 80 mL of fluid were instilled. 40 mL were returned. The return was blood-tinged and cellular. There were no mucoid plugs in the return fluid. An endobronchial ultrasound endoscope was utilized in order to assist with fine needle aspiration in the left and right paratracheal and subcarinal areas, in the right hilum and in the left hilum. Transbronchial needle aspirations were performed in the right paratracheal area, in the left paratracheal area, in the subcarinal area, in the right hilum and in the left hilum using a mPowa Expect 25 gauge needle and sent for routine cytology. The procedure was guided by ultrasound. The sampling device penetrated the full thickness of the bronchial wall in order to reach the sampling site. Five samples were obtained. Impression: - Left upper lobe nodule - Paratracheal adenopathy - Notable, white, thick secretions were found throughout the tracheobronchial tree. - Friable mucosa was found throughout the tracheobronchial tree. - Electromagnetic navigation bronchoscopy was performed. - A transbronchial needle aspiration was performed. - Transbronchial lung biopsies were performed. - Transbronchial brushings were obtained. - Bronchoalveolar lavage was performed. - Endobronchial ultrasound was performed. - A transbronchial needle aspiration was performed. Recommendation: - Await BAL, biopsy, brushing, culture and cytology results. - Chest X-ray post-procedure. Referring MD: Oscar David Medicines: General Anesthesia Procedure: Pre-Anesthesia Assessment: - A History and Physical has been performed. The patient's medications, allergies and sensitivities have been reviewed. - ASA Grade Assessment: II - A patient with mild systemic disease. - The anesthesia plan was to use general anesthesia. After I obtained informed consent, the scope was passed under direct vision. Throughout the procedure, the patient's blood pressure, pulse, and oxygen saturations were monitored continuously. The Bronchoscope was introduced through the mouth, via the endotracheal tube (the patient was intubated for the procedure) and advanced to the tracheobronchial tree of both lungs. The Bronchoscope was introduced through the mouth, via the endotracheal tube (the patient was intubated for the procedure) and advanced to the tracheobronchial tree of both lungs. The procedure was accomplished with moderate difficulty. The patient tolerated the procedure well. Complications: No immediate complications. Estimated blood loss: Minimal Procedure Code(s): --- Professional --- 85210, Bronchoscopy, rigid or flexible, including fluoroscopic guidance, when performed; with transbronchial needle aspiration biopsy(s), trachea, main stem and/or lobar bronchus(i) 26161, Bronchoscopy, rigid or flexible, including fluoroscopic guidance, when performed; with transbronchial lung biopsy(s), single lobe 77966, Bronchoscopy, rigid or flexible, including fluoroscopic guidance, when performed; with bronchial alveolar lavage 54463, Bronchoscopy, rigid or flexible, including fluoroscopic guidance, when performed; with brushing or protected brushings 83308, Bronchoscopy, rigid or flexible, including fluoroscopic guidance, when performed; with computer-assisted, image-guided navigation (List separately in addition to code for primary procedure[s]) 20797, Bronchoscopy, rigid or flexible, including fluoroscopic guidance, when performed; with transendoscopic endobronchial ultrasound (EBUS) during bronchoscopic diagnostic or therapeutic intervention(s) for peripheral lesion(s) (List separately in addition to code for primary procedure[s]) Diagnosis Code(s): --- Professional --- R59.0, Localized enlarged lymph nodes R91.1, Solitary pulmonary nodule R09.89, Other specified symptoms and signs involving the circulatory and respiratory systems J98.09, Other diseases of bronchus, not elsewhere classified CPT copyright 2021 [employer]. All rights reserved. The codes documented in this report are preliminary and upon civil cadd technician review may be revised to meet current compliance requirements. Attending Participation: I personally performed the entire procedure. Jarek Vu MD 04/26/2024 11:01:25 AM This report has been signed electronically. Number of Addenda: 0 Note Initiated On: 04/26/2024 7:44 AM documented in this [facility]11-25-2024 Note* Perioperative Nursing Note - Lamar Rich RN - 04/26/2024 12:10 PM EST Home going instructions given with verbal explanation. Stated understanding. Dentures and glasses returned to patient from belongings bag. [id number] Note* Perioperative Nursing Note - Lamar Rich RN - 04/26/2024 12:10 PM EST Home going instructions given with verbal explanation. Stated understanding. Dentures and glasses returned to patient from belongings bag. [id number] NotePatient: Andrea Calix Procedure Summary Date: 04/26/24 Room / Location: [place] [address] / [facility] Gastroenterology Anesthesia Start: 917 Anesthesia Stop: 1105 Procedures: ENDOBRONCHIAL ULTRASOUND BRONCHOSCOPY ELECTROMAGNETIC NAVIGATIONAL BRONCHOSCOPY Diagnosis: Lung mass Mediastinal adenopathy Providers: Jarek Vu MD Responsible Provider: Elias Small MD Anesthesia Type: TIVA ASA Status: 3 Anesthesia Type: TIVA Vitals Value Taken Time BP 117/101 04/26/24 1117 Temp 36.2 ?C (97.1 ?F) 04/26/24 1109 Pulse 53 04/26/24 1118 Resp 15 04/26/24 1118 SpO2 100 % 04/26/24 1118 Vitals shown include unfiled device data. Anesthesia Post Evaluation Patient location during evaluation: PACU Patient participation: complete - patient participated Level of consciousness: awake and alert Pain management: satisfactory to patient Airway patency: patent Dental Injury: no Cardiovascular status: acceptable, blood pressure returned to baseline and hemodynamically stable Respiratory status: acceptable and spontaneous ventilation Hydration status: euvolemic Nausea/Vomiting: controlled No notable events documented. Patient can be discharged once all PACU criteria has been met.[facility] [id number] NotePatient: Andrea Calix Procedure Summary Date: 04/26/24 Room / Location: [place] [address] / [facility] Gastroenterology Anesthesia Start: 917 Anesthesia Stop: 1105 Procedures: ENDOBRONCHIAL ULTRASOUND BRONCHOSCOPY ELECTROMAGNETIC NAVIGATIONAL BRONCHOSCOPY Diagnosis: Lung mass Mediastinal adenopathy Providers: Jarek Vu MD Responsible Provider: Elias Small MD Anesthesia Type: TIVA ASA Status: 3 Anesthesia Type: TIVA Vitals Value Taken Time BP 117/101 04/26/24 1117 Temp 36.2 ?C (97.1 ?F) 04/26/24 1109 Pulse 53 04/26/24 1117 Resp 14 04/26/24 1117 SpO2 97 % 04/26/24 1117 Vitals shown include unfiled device data. Anesthesia Post Evaluation Patient location during evaluation: PACU Patient participation: complete - patient participated Level of consciousness: awake and alert Pain management: satisfactory to patient Multimodal analgesia pain management approach Airway patency: patent Two or more strategies used to mitigate risk of obstructive sleep apnea Cardiovascular status: acceptable and hemodynamically stable Respiratory status: acceptable Hydration status: acceptable No notable events documented. MIPS #430 PONV Patient did not receive an inhalational anesthetic (XX430) MIPS # 424 Perioperative Temperature Management Anesthesia time was 60 minutes or longer (4255F) Anesthesai administered was General (inhalational or TIVA) or Neuraxial block (X0424) At least one body temperature greater than 95.8F/35.5C achieved within the 30 mins immediately prior to or the 15 minutes immediately following anesthesia end time (G9771) MIPS #477 Multimodal Pain Management Not emergent case Patient was administered multimodal pain management (two or more drugs and/or interventions excluding systemic opioids) in the periopeartive period occurring at some time between 6 hours prior to anesthesia start time until discharged from PACU (G2148) MIPS #404 Anesthesiology Smoking Abstinence The patient is not a current smoker (e.g. cigarette, cigar, pipe, e-cigarette/vaping/marijuana) If no stop here (XX404) I completed my handoff to the receiving clinician during which we: 1. Identified the patient 2. Identified the responsible provider 3. Reviewed the pertinent medical history 4. Discussed the surgical course 5. Reviewed intra-op anesthesia management and issues during anesthesia 6. Set expectations for post-procedure period 7. Allowed opportunity for questions and acknowledgement of understanding.[facility]11-25-[facility] Nurse Note* Tu Castañeda RN - 04/26/2024 11:05 AM EST Xray to the room [id number] Nurse Note* Tu Castañeda RN - 04/26/2024 11:05 AM EST Xray to the room documented in this [facility]Pro[facility] [id number] NoteAirway Date/Time: 04/26/2024 9:25 AM Urgency: scheduled Airway not difficult General Information and Staff Patient location during procedure: Procedural Performed: SOA INTEGRATION DEVELOPER Indications and Patient Condition Indications for airway management: anesthesia Sedation level: Asleep Preoxygenated: yes Patient position: C spine neutral MILS maintained throughout Mask difficulty assessment: 1 - vent by mask Final Airway Details Final airway type: endotracheal airway Successful airway: ETT Cuffed: yes Successful intubation technique: direct laryngoscopy Endotracheal tube insertion site: oral Blade: Omer Blade size: #3 ETT size (mm): 9.0 Cormack-Lehane Classification: grade I - full view of glottis Placement verified by: capnometry Measured from: lips ETT to lips (cm): 22 Number of attempts at approach: [address] [place], [place] [address]65011-25-2024 History and physical note* Jarek Vu MD - 04/26/2024 9:19 AM EST Chief Complaint: lung nodule History of Present Illness: HPI 68 y/o female here for bronchoscopy to evaluate a 1.8 cm DIONY noduleand associated adenopathy. Past Medical History: Past Medical History: Diagnosis Date COPD (chronic obstructive pulmonary disease) (HCC) Disease of thyroid gland MARTELL on CPAP 2016 Social History: Social History Socioeconomic History Marital status: Tobacco Use Smoking status: Former Current packs/day: 0.00 Types: Cigarettes Quit date: 2014 Years since quittin.9 Smokeless tobacco: Never Family History: No family history on file. ROS: Review of Systems All other systems reviewed and are negative. Medications: Current Facility-Administered Medications Medication Dose Route Frequency Provider Last Rate Last Admin sodium chloride 0.9 % infusion 5-250 mL/hr IntraVENous PRN Jarek Vu MD 30 mL/hr at 04/26/24917 Continued by Anesthesia at 04/26/24917 sodium chloride 0.9% (NS) flush 10 mL 10 mL IntraVENous 2 times per day Jarek Vu MD sodium chloride 0.9% (NS) flush 10 mL 10 mL IntraVENous PRN Jarek Vu MD Allergies: Allergies Allergen Reactions Zoster Vaccine Recombinant, Adjuvanted Other Reaction(s): Rash Physical Exam: BP Temp Pulse Resp SpO2 BP (!) 146/72 Pulse 62 Temp 36.4 C (97.5 F) (Temporal) Resp 20 Ht 5' 5 (1.651 m) Wt 215 lb (97.5 kg) SpO2 96% BMI 35.78 kg/m Physical Exam Constitutional: Appearance: She is not ill-appearing. HENT: Mouth/Throat: Mouth: Mucous membranes are moist. Pharynx: Oropharynx is clear. No oropharyngeal exudate. Cardiovascular: Rate and Rhythm: Normal rate. Pulmonary: Effort: Pulmonary effort is normal. Skin: General: Skin is warm and dry. Neurological: General: No focal deficit present. Mental Status: She is alert and oriented to person, place, and time. Assessment and Plan: DIONY nodule, mediastinal adenopathy. Plan navigational bronchoscopy with sampling of DIONY lesion, EBUS for lymph node evaluation/sampling/staging. [facility] Work Phone: [phone] 145-776211-25-2024 NoteChief Complaint: lung nodule History of Present Illness: HPI 68 y/o female here for bronchoscopy to evaluate a 1.8 cm DIONY nodule and associated adenopathy. Past Medical History: Past Medical History: Diagnosis Date COPD (chronic obstructive pulmonary disease) (HCC) Disease of thyroid gland MARTELL on CPAP 2016 Social History: Social History Socioeconomic History Marital status: Tobacco Use Smoking status: Former Current packs/day: 0.00 Types: Cigarettes Quit date: 2014 Years since quittin.9 Smokeless tobacco: Never Family History: No family history on file. ROS: Review of Systems All other systems reviewed and are negative. Medications: Current Facility-Administered Medications Medication Dose Route Frequency Provider Last Rate Last Admin sodium chloride 0.9 % infusion 5-250 mL/hr IntraVENous PRN Jarek Vu MD 30 mL/hr at 04/26/24917 Continued by Anesthesia at 04/26/24917 sodium chloride 0.9% (NS) flush 10 mL 10 mL IntraVENous 2 times per day Jarek Vu MD sodium chloride 0.9% (NS) flush 10 mL 10 mL IntraVENous PRN Jarek Vu MD Allergies: Allergies Allergen Reactions Zoster Vaccine Recombinant, Adjuvanted Other Reaction(s): Rash Physical Exam: BP Temp Pulse Resp SpO2 BP (!) 146/72 Pulse 62 Temp 36.4 ?C (97.5 ?F) (Temporal) Resp 20 Ht 5' 5 (1.651 m) Wt 215 lb (97.5 kg) SpO2 96% BMI 35.78 kg/m? Physical Exam Constitutional: Appearance: She is not ill-appearing. HENT: Mouth/Throat: Mouth: Mucous membranes are moist. Pharynx: Oropharynx is clear. No oropharyngeal exudate. Cardiovascular: Rate and Rhythm: Normal rate. Pulmonary: Effort: Pulmonary effort is normal. Skin: General: Skin is warm and dry. Neurological: General: No focal deficit present. Mental Status: She is alert and oriented to person, place, and time. Assessment and Plan: DIONY nodule, mediastinal adenopathy. Plan navigational bronchoscopy with sampling of DIONY lesion, EBUS for lymph node evaluation/sampling/staging. [facility]11-25-2024 History and physical note* Jarek Vu MD - 04/26/2024 9:19 AM EST Chief Complaint: lung nodule History of Present Illness: HPI 68 y/o female here for bronchoscopy to evaluate a 1.8 cm DIONY noduleand associated adenopathy. Past Medical History: Past Medical History: Diagnosis Date COPD (chronic obstructive pulmonary disease) (HCC) Disease of thyroid gland MARTELL on CPAP 2016 Social History: Social History Socioeconomic History Marital status: Tobacco Use Smoking status: Former Current packs/day: 0.00 Types: Cigarettes Quit date: 2014 Years since quittin.9 Smokeless tobacco: Never Family History: No family history on file. ROS: Review of Systems All other systems reviewed and are negative. Medications: Current Facility-Administered Medications Medication Dose Route Frequency Provider Last Rate Last Admin sodium chloride 0.9 % infusion 5-250 mL/hr IntraVENous PRN Jarek Vu MD 30 mL/hr at 04/26/24917 Continued by Anesthesia at 04/26/24917 sodium chloride 0.9% (NS) flush 10 mL 10 mL IntraVENous 2 times per day Jarek Vu MD sodium chloride 0.9% (NS) flush 10 mL 10 mL IntraVENous PRN Jarek Vu MD Allergies: Allergies Allergen Reactions Zoster Vaccine Recombinant, Adjuvanted Other Reaction(s): Rash Physical Exam: BP Temp Pulse Resp SpO2 BP (!) 146/72 Pulse 62 Temp 36.4 C (97.5 F) (Temporal) Resp 20 Ht 5' 5 (1.651 m) Wt 215 lb (97.5 kg) SpO2 96% BMI 35.78 kg/m Physical Exam Constitutional: Appearance: She is not ill-appearing. HENT: Mouth/Throat: Mouth: Mucous membranes are moist. Pharynx: Oropharynx is clear. No oropharyngeal exudate. Cardiovascular: Rate and Rhythm: Normal rate. Pulmonary: Effort: Pulmonary effort is normal. Skin: General: Skin is warm and dry. Neurological: General: No focal deficit present. Mental Status: She is alert and oriented to person, place, and time. Assessment and Plan: DIONY nodule, mediastinal adenopathy. Plan navigational bronchoscopy with sampling of DIONY lesion, EBUS for lymph node evaluation/sampling/staging. documented in this [facility]11-25-2024 NotePatient: Andrea Calix Procedure Information Date/Time: 04/26/24 0900 Procedures: ENDOBRONCHIAL ULTRASOUND BRONCHOSCOPY - rad, path, ENB rep, total time 120 minutes ELECTROMAGNETIC NAVIGATIONAL BRONCHOSCOPY - rad, path, ENB rep, total time 120 minutes Location: [place] [address] / [facility] Gastroenterology Providers: Jarek Vu MD Relevant Problems Other (+) Mediastinal adenopathy Past Medical History: No past medical history on file. Past Surgical History: No past surgical history on file. Social History: TOBACCO: reports that she quit smoking about 9 years ago. Her smoking use included cigarettes. She has never used smokeless tobacco. ETOH: has no history on file for alcohol use. Social History Substance and Sexual Activity Drug Use Not on file Family History: No family history on file. Screening: unknown Clinical information reviewed: Allergies Meds Physical Exam Airway Mallampati: II Mouth Open: normal Cardiovascular Dental (+) Upper Dentures, Lower Dentures Pulmonary Abdominal Anesthesia Plan patient is NPO appropriate Any family history or previous problems with anesthesia no ASA 3 TIVA Any family history or previous problems with anesthesia no The patient is not a current smoker. Anesthetic plan and risks discussed with patient. MARTELL Screening Labs: No results found for: WBC, HGB, HCT, MCV, PLT No results found for: SODIUM, NA, POTASSIUM, K, CHLORIDE, CL, CO2, BUN, CREATININE, GLUCOSE, CALCIUM, PROT, BILIRUBINFL, ALKPHOS, AST, ALT, EGFR, GLOB No echocardiogram results found for the past 14 days No results found for this or any previous visit. Equipment [facility]: [facility]* Op Note - Jarek Vu MD - 04/26/2024 7:44 AM EST [facility]: Andrea Calix Procedure Date: 04/26/2024 7:44 AM Gender: Female Date of : 1955 Age: 68 Admit Type: Outpatient Note Status: Finalized Attending MD: Jarek Vu MD, [id number] Procedure: Bronchoscopy Indications: Left upper lobe nodule, Paratracheal adenopathy Findings: Bilateral Lung Abnormalities: Notable, white, thick secretions were found throughout the tracheobronchial tree. They were partially obstructing the airway. An area of friable mucosa was found throughout the tracheobronchial tree. Electromagnetic navigation bronchoscopy utilizing the ULTRA Testing system was performed. A pre-procedure CT scan was used for planning purposes. A virtual bronchoscopic image was generated using the planning software. The target in the left upper lobe was marked. A nodule 1.8 cm in size was found and a pathway was created. After a complete airway exam, the locatable guide/extended working channel was inserted. The navigation phase was then begun to locate the target lesion(s). The locatable guide was removed from the extended working channel. A transbronchial needle aspiration of a nodule was performed in the left upper lobe using a fine needle and sent for routine cytology. The procedure was guided by fluoroscopy. Transbronchial needle aspiration technique was selected because the sampling site was not visible endoscopically. One sample was obtained. A transbronchial biopsy of a nodule was performed in the left upper lobe using forceps and sent for routine cytology. The procedure was guided by fluoroscopy. Transbronchial biopsy technique was selected because the sampling site was not visible endoscopically. Seven biopsy passes were performed. One biopsy sample was obtained. Fluoroscopy guided transbronchial brushings of a nodule were obtained in the left upper lobe with a cytology brush and sent for routine cytology. One sample was obtained. Transbronchial brushing technique was selected because the sampling site was not visible endoscopically. The bronchoscope was advanced until wedged at the desired location for bronchoalveolar lavage. BAL was performed in the left upper lobe of the lung and sent for routine cytology and bacterial, AFB and fungal analysis. 80 mL of fluid were instilled. 40 mL were returned. The return was blood-tinged and cellular. There were no mucoid plugs in the return fluid. An endobronchial ultrasound endoscope was utilized in order to assist with fine needle aspiration in the left and right paratracheal and subcarinal areas, in the right hilum and in the left hilum. Transbronchial needle aspirations were performed in the right paratracheal area, in the left paratracheal area, in the subcarinal area, in the right hilum and in the left hilum using a mPowa Expect 25 gauge needle and sent for routine cytology. The procedure was guided by ultrasound. The sampling device penetrated the full thickness of the bronchial wall in order to reach the sampling site. Five samples were obtained. Impression: - Left upper lobe nodule - Paratracheal adenopathy - Notable, white, thick secretions were found throughout the tracheobronchial tree. - Friable mucosa was found throughout the tracheobronchial tree. - Electromagnetic navigation bronchoscopy was performed. - A transbronchial needle aspiration was performed. - Transbronchial lung biopsies were performed. - Transbronchial brushings were obtained. - Bronchoalveolar lavage was performed. - Endobronchial ultrasound was performed. - A transbronchial needle aspiration was performed. Recommendation: - Await BAL, biopsy, brushing, culture and cytology results. - Chest X-ray post-procedure. Referring MD: Oscar Mott Medicines: General Anesthesia Procedure: Pre-Anesthesia Assessment: - A History and Physical has been performed. The patient's medications, allergies and sensitivities have been reviewed. - ASA Grade Assessment: II - A patient with mild systemic disease. - The anesthesia plan was to use general anesthesia. After I obtained informed consent, the scope was passed under direct vision. Throughout the procedure, the patient's blood pressure, pulse, and oxygen saturations were monitored continuously. The Bronchoscope was introduced through the mouth, via the endotracheal tube (the patient was intubated for the procedure) and advanced to the tracheobronchial tree of both lungs. The Bronchoscope was introduced through the mouth, via the endotracheal tube (the patient was intubated for the procedure) and advanced to the tracheobronchial tree of both lungs. The procedure was accomplished with moderate difficulty. The patient tolerated the procedure well. Complications: No immediate complications. Estimated blood loss: Minimal Procedure Code(s): --- Professional --- 96365, Bronchoscopy, rigid or flexible, including fluoroscopic guidance, when performed; with transbronchial needle aspiration biopsy(s), trachea, main stem and/or lobar bronchus(i) 13537, Bronchoscopy, rigid or flexible, including fluoroscopic guidance, when performed; with transbronchial lung biopsy(s), single lobe 05844, Bronchoscopy, rigid or flexible, including fluoroscopic guidance, when performed; with bronchial alveolar lavage 99870, Bronchoscopy, rigid or flexible, including fluoroscopic guidance, when performed; with brushing or protected brushings 71675, Bronchoscopy, rigid or flexible, including fluoroscopic guidance, when performed; with computer-assisted, image-guided navigation (List separately in addition to code for primary procedure[s]) 52994, Bronchoscopy, rigid or flexible, including fluoroscopic guidance, when performed; with transendoscopic endobronchial ultrasound (EBUS) during bronchoscopic diagnostic or therapeutic intervention(s) for peripheral lesion(s) (List separately in addition to code for primary procedure[s]) Diagnosis Code(s): --- Professional --- R59.0, Localized enlarged lymph nodes R91.1, Solitary pulmonary nodule R09.89, Other specified symptoms and signs involving the circulatory and respiratory systems J98.09, Other diseases of bronchus, not elsewhere classified CPT copyright 2021 [employer]. All rights reserved. The codes documented in this report are preliminary and upon civil cadd technician review may be revised to meet current compliance requirements. Attending Participation: I personally performed the entire procedure. Jarek Vu MD 04/26/2024 11:01:25 AM This report has been signed electronically. Number of Addenda: 0 Note Initiated On: 04/26/2024 7:44 AM [id number] Note* Op Note - Jarek Vu MD - 04/26/2024 7:44 AM EST [facility] Name: Andrea Calix Procedure Date: 04/26/2024 7:44 AM Gender: Female Date of : 1955 Age: 68 Admit Type: Outpatient Note Status: Finalized Attending MD: Jarek Vu MD, [id number] Procedure: Bronchoscopy Indications: Left upper lobe nodule, Paratracheal adenopathy Findings: Bilateral Lung Abnormalities: Notable, white, thick secretions were found throughout the tracheobronchial tree. They were partially obstructing the airway. An area of friable mucosa was found throughout the tracheobronchial tree. Electromagnetic navigation bronchoscopy utilizing the ULTRA Testing system was performed. A pre-procedure CT scan was used for planning purposes. A virtual bronchoscopic image was generated using the planning software. The target in the left upper lobe was marked. A nodule 1.8 cm in size was found and a pathway was created. After a complete airway exam, the locatable guide/extended working channel was inserted. The navigation phase was then begun to locate the target lesion(s). The locatable guide was removed from the extended working channel. A transbronchial needle aspiration of a nodule was performed in the left upper lobe using a fine needle and sent for routine cytology. The procedure was guided by fluoroscopy. Transbronchial needle aspiration technique was selected because the sampling site was not visible endoscopically. One sample was obtained. A transbronchial biopsy of a nodule was performed in the left upper lobe using forceps and sent for routine cytology. The procedure was guided by fluoroscopy. Transbronchial biopsy technique was selected because the sampling site was not visible endoscopically. Seven biopsy passes were performed. One biopsy sample was obtained. Fluoroscopy guided transbronchial brushings of a nodule were obtained in the left upper lobe with a cytology brush and sent for routine cytology. One sample was obtained. Transbronchial brushing technique was selected because the sampling site was not visible endoscopically. The bronchoscope was advanced until wedged at the desired location for bronchoalveolar lavage. BAL was performed in the left upper lobe of the lung and sent for routine cytology and bacterial, AFB and fungal analysis. 80 mL of fluid were instilled. 40 mL were returned. The return was blood-tinged and cellular. There were no mucoid plugs in the return fluid. An endobronchial ultrasound endoscope was utilized in order to assist with fine needle aspiration in the left and right paratracheal and subcarinal areas, in the right hilum and in the left hilum. Transbronchial needle aspirations were performed in the right paratracheal area, in the left paratracheal area, in the subcarinal area, in the right hilum and in the left hilum using a mPowa Expect 25 gauge needle and sent for routine cytology. The procedure was guided by ultrasound. The sampling device penetrated the full thickness of the bronchial wall in order to reach the sampling site. Five samples were obtained. Impression: - Left upper lobe nodule - Paratracheal adenopathy - Notable, white, thick secretions were found throughout the tracheobronchial tree. - Friable mucosa was found throughout the tracheobronchial tree. - Electromagnetic navigation bronchoscopy was performed. - A transbronchial needle aspiration was performed. - Transbronchial lung biopsies were performed. - Transbronchial brushings were obtained. - Bronchoalveolar lavage was performed. - Endobronchial ultrasound was performed. - A transbronchial needle aspiration was performed. Recommendation: - Await BAL, biopsy, brushing, culture and cytology results. - Chest X-ray post-procedure. Referring MD: Oscar Mott Medicines: General Anesthesia Procedure: Pre-Anesthesia Assessment: - A History and Physical has been performed. The patient's medications, allergies and sensitivities have been reviewed. - ASA Grade Assessment: II - A patient with mild systemic disease. - The anesthesia plan was to use general anesthesia. After I obtained informed consent, the scope was passed under direct vision. Throughout the procedure, the patient's blood pressure, pulse, and oxygen saturations were monitored continuously. The Bronchoscope was introduced through the mouth, via the endotracheal tube (the patient was intubated for the procedure) and advanced to the tracheobronchial tree of both lungs. The Bronchoscope was introduced through the mouth, via the endotracheal tube (the patient was intubated for the procedure) and advanced to the tracheobronchial tree of both lungs. The procedure was accomplished with moderate difficulty. The patient tolerated the procedure well. Complications: No immediate complications. Estimated blood loss: Minimal Procedure Code(s): --- Professional --- 26515, Bronchoscopy, rigid or flexible, including fluoroscopic guidance, when performed; with transbronchial needle aspiration biopsy(s), trachea, main stem and/or lobar bronchus(i) 44771, Bronchoscopy, rigid or flexible, including fluoroscopic guidance, when performed; with transbronchial lung biopsy(s), single lobe 16722, Bronchoscopy, rigid or flexible, including fluoroscopic guidance, when performed; with bronchial alveolar lavage 27161, Bronchoscopy, rigid or flexible, including fluoroscopic guidance, when performed; with brushing or protected brushings 50315, Bronchoscopy, rigid or flexible, including fluoroscopic guidance, when performed; with computer-assisted, image-guided navigation (List separately in addition to code for primary procedure[s]) 16424, Bronchoscopy, rigid or flexible, including fluoroscopic guidance, when performed; with transendoscopic endobronchial ultrasound (EBUS) during bronchoscopic diagnostic or therapeutic intervention(s) for peripheral lesion(s) (List separately in addition to code for primary procedure[s]) Diagnosis Code(s): --- Professional --- R59.0, Localized enlarged lymph nodes R91.1, Solitary pulmonary nodule R09.89, Other specified symptoms and signs involving the circulatory and respiratory systems J98.09, Other diseases of bronchus, not elsewhere classified CPT copyright 2022 [employer]. All rights reserved. The codes documented in this report are preliminary and upon civil cadd technician review may be revised to meet current compliance requirements. Attending Participation: I personally performed the entire procedure. Jarek Vu MD 04/26/2024 11:01:25 AM This report has been signed electronically. Number of Addenda: 0 Note Initiated On: 04/26/2024 7:44 AM [facility]11-25-[facility]24 [facility] Patient Name: Andrea Calix Procedure Date: 04/26/2024 7:44 AM Gender: Female Date of : 1955 Age: 68 Admit Type: Outpatient Note Status: Finalized Attending MD: Jarek Vu MD, [id number] Procedure: Bronchoscopy Indications: Left upper lobe nodule, Paratracheal adenopathy Findings: Bilateral Lung Abnormalities: Notable, white, thick secretions were found throughout the tracheobronchial tree. They were partially obstructing the airway. An area of friable mucosa was found throughout the tracheobronchial tree. Electromagnetic navigation bronchoscopy utilizing the ULTRA Testing system was performed. A pre-procedure CT scan was used for planning purposes. A virtual bronchoscopic image was generated using the planning software. The target in the left upper lobe was marked. A nodule 1.8 cm in size was found and a pathway was created. After a complete airway exam, the locatable guide/extended working channel was inserted. The navigation phase was then begun to locate the target lesion(s). The locatable guide was removed from the extended working channel. A transbronchial needle aspiration of a nodule was performed in the left upper lobe using a fine needle and sent for routine cytology. The procedure was guided by fluoroscopy. Transbronchial needle aspiration technique was selected because the sampling site was not visible endoscopically. One sample was obtained. A transbronchial biopsy of a nodule was performed in the left upper lobe using forceps and sent for routine cytology. The procedure was guided by fluoroscopy. Transbronchial biopsy technique was selected because the sampling site was not visible endoscopically. Seven biopsy passes were performed. One biopsy sample was obtained. Fluoroscopy guided transbronchial brushings of a nodule were obtained in the left upper lobe with a cytology brush and sent for routine cytology. One sample was obtained. Transbronchial brushing technique was selected because the sampling site was not visible endoscopically. The bronchoscope was advanced until wedged at the desired location for bronchoalveolar lavage. BAL was performed in the left upper lobe of the lung and sent for routine cytology and bacterial, AFB and fungal analysis. 80 mL of fluid were instilled. 40 mL were returned. The return was blood-tinged and cellular. There were no mucoid plugs in the return fluid. An endobronchial ultrasound endoscope was utilized in order to assist with fine needle aspiration in the left and right paratracheal and subcarinal areas, in the right hilum and in the left hilum. Transbronchial needle aspirations were performed in the right paratracheal area, in the left paratracheal area, in the subcarinal area, in the right hilum and in the left hilum using a mPowa Expect 25 gauge needle and sent for routine cytology. The procedure was guided by ultrasound. The sampling device penetrated the full thickness of the bronchial wall in order to reach the sampling site. Five samples were obtained. Impression: - Left upper lobe nodule - Paratracheal adenopathy - Notable, white, thick secretions were found throughout the tracheobronchial tree. - Friable mucosa was found throughout the tracheobronchial tree. - Electromagnetic navigation bronchoscopy was performed. - A transbronchial needle aspiration was performed. - Transbronchial lung biopsies were performed. - Transbronchial brushings were obtained. - Bronchoalveolar lavage was performed. - Endobronchial ultrasound was performed. - A transbronchial needle aspiration was performed. Recommendation: - Await BAL, biopsy, brushing, culture and cytology results. - Chest X-ray post-procedure. Referring MD: Oscar Mott Medicines: General Anesthesia Procedure: Pre-Anesthesia Assessment: - A History and Physical has been performed. The patient's medications, allergies and sensitivities have been reviewed. - ASA Grade Assessment: II - A patient with mild systemic disease. - The anesthesia plan was to use general anesthesia. After I obtained informed consent, the scope was passed under direct vision. Throughout the procedure, the patient's blood pressure, pulse, and oxygen saturations were monitored continuously. The Bronchoscope was introduced through the mouth, via the endotracheal tube (the patient was intubated for the procedure) and advanced to the tracheobronchial tree of both lungs. The Bronchoscope was introduced through the mouth, via the endotracheal tube (the patient was intubated for the procedure) and advanced to the tracheobronchial tree of both lungs. The procedure was accomplished with moderate difficulty. The patient tolerated the procedure well. Complications: No immediate complications. Estimated blood loss: Minimal Procedure Code(s): --- Professional --- (more content not included)...[facility] 04-22-2024 Telephone encounter Note* Telephone Encounter - Carleen Arvizu LPN - 04/22/2024 9:00 AM EST Andrea notified. [id number] Miscellaneous Notes* Telephone Encounter - Carleen Arvizu LPN - 04/22/2024 9:00 AM EST Andrea notified. * Telephone Encounter - Carleen Arvizu LPN - 04/22/2024 8:08 AM EST Checked with Veronica MCCAIN and was informed that Pt is ok taking Vitamin C and D3. * Telephone Encounter - Carleen Arvizu LPN - 04/21/2024 4:16 PM EST Pt's Keenan called in leaving a . Called Keenan back and Reread the instructions with him. He asked about Tylenol because his takes It regularly. Explained to Keenan per instructions It's safe for his to take Tylenol. Keenan explained that his is also takes Vit D3 and C. Wants to know if this will effect her procedure? * Telephone Encounter - Carleen Bran RN - 04/20/2024 9:00 AM EST Patient scheduled for EBUS/ENB Physician performing: Dr. Jarek Vu MD Location: [facility] ENDOSCOPY Bronch Date: 04/26/24 Time: 9 am Arrival time: 730 am Telephone visit scheduled for results? yes Procedure placed on physician's outlook calendar? yes Does patient take blood thinners? No Does patient take ASA?No Does patient take NSAIDS? No Does patient take diabetic medications? Yes - metformin Does patient have Pacemaker, defibrillator, life vest, other implants? No Recent illness or covid exposure? No Chance of ? No Patient aware will need transportation home from hospital? Yes Patient instructed to bring insurance card, photo ID and mask? Yes Surgery Scheduling Patient notified of procedure date, time, prep/NPO status, arrival time, location and entrance, must have a ride, and to bring: drivers license, insurance card, mask, med list. Reviewed prep and itinerary with patient? yes Patient voices understanding? Yes * Telephone Encounter - Carleen Bran RN - 04/19/2024 3:[address] Vu recommended getting chest CT scheduled sooner and okay to schedule 04/26 at [facility] with himif bronch time available via secure chat. This RN was able to get chest CT rescheduled to at 1130 am. Patient is aware of change in date/time. Scheduled EBUS/ENB for 04/26/24 at [address] Vu at [facility]. Patient and spouse agreeable to have procedure prep/itinerary sent via [employer]. They will call if any questions. * Telephone Encounter - Carleen Bran RN - 04/19/2024 3:01 PM EST Patient spouse returned call with patient listening in the background. Patient prefers [facility] for procedure. Next day provider on [facility] bronch schedule is 05/10/24. Patient is scheduled for chest CT 04/28/24. Will discuss with provider and if okay to maintain this date will schedule. * Telephone Encounter - Kathy Dumont - 04/16/2024 3:08 PM EST Patient is active with MCR and [employer] and no PA needed for testing/procedures when MCR prime * Telephone Encounter - Carleen Bran RN - 04/16/2024 1:56 PM EST Patient to be scheduled for EBUS/ENB per Dr. Vu for lung mass and mediastinal adenopathy. Called and left voicemail requesting a return call to get procedure scheduled. Her chest CT is scheduled 04/28/24 at [facility]. documented in this encounterSPro[facility] Memorial [id number] Telephone encounter Note* Telephone Encounter - Carleen Arvizu LPN - 04/22/2024 8:08 AM EST Checked with Veronica MCCAIN and was informed that Pt is ok taking Vitamin C and D3. [id number] Telephone encounter Note* Telephone Encounter - Carleen Arvizu LPN - 04/21/2024 4:16 PM EST Pt's Keenan called in leaving a . Called Keenan back and Reread the instructions with him. He asked about Tylenol because his takes It regularly. Explained to Keenan per instructions It's safe for his to take Tylenol. Keenan explained that his is also takes Vit D3 and C. Wants to know if this will effect her procedure? [facility] [id number] Miscellaneous Notes* Telephone Encounter - Carleen Arvizu LPN - 04/21/2024 4:16 PM EST Pt's Keenan called in leaving a . Called Keenan back and Reread the instructions with him. He asked about Tylenol because his takes It regularly. Explained to Keenan per instructions It's safe for his to take Tylenol. Keenan explained that his is also takes Vit D3 and C. Wants to know if this will effect her procedure? * Telephone Encounter - Carleen Bran RN - 04/20/2024 9:00 AM EST Patient scheduled for EBUS/ENB Physician performing: Dr. Jarek Vu MD Location: [facility] ENDOSCOPY Bronch Date: 04/26/24 Time: 9 am Arrival time: 730 am Telephone visit scheduled for results? yes Procedure placed on physician's outlook calendar? yes Does patient take blood thinners? No Does patient take ASA?No Does patient take NSAIDS? No Does patient take diabetic medications? Yes - metformin Does patient have Pacemaker, defibrillator, life vest, other implants? No Recent illness or covid exposure? No Chance of ? No Patient aware will need transportation home from hospital? Yes Patient instructed to bring insurance card, photo ID and mask? Yes Surgery Scheduling Patient notified of procedure date, time, prep/NPO status, arrival time, location and entrance, must have a ride, and to bring: drivers license, insurance card, mask, med list. Reviewed prep and itinerary with patient? yes Patient voices understanding? Yes * Telephone Encounter - Carleen Bran RN - 04/19/2024 3:[address] Vu recommended getting chest CT scheduled sooner and okay to schedule 04/26 at [facility] with himif bronch time available via secure chat. This RN was able to get chest CT rescheduled to at 1130 am. Patient is aware of change in date/time. Scheduled EBUS/ENB for 04/26/24 at [address] Vu at [facility]. Patient and spouse agreeable to have procedure prep/itinerary sent via [employer]. They will call if any questions. * Telephone Encounter - Carleen Bran RN - 04/19/2024 3:01 PM EST Patient spouse returned call with patient listening in the background. Patient prefers [facility] for procedure. Next day provider on [facility] bronch schedule is 05/10/24. Patient is scheduled for chest CT 04/28/24. Will discuss with provider and if okay to maintain this date will schedule. * Telephone Encounter - Kathy Dumont - 04/16/2024 3:08 PM EST Patient is active with [employer] and [employer] and no PA needed for testing/procedures when MCR prime * Telephone Encounter - Carleen Bran RN - 04/16/2024 1:56 PM EST Patient to be scheduled for EBUS/ENB per Dr. Vu for lung mass and mediastinal adenopathy. Called and left voicemail requesting a return call to get procedure scheduled. Her chest CT is scheduled 04/28/24 at [facility]. documented in this [facility]11-19-2024 Telephone encounter Note* Telephone Encounter - Alka Talbot RCP - 04/20/2024 1:55 PM EST Multiple prior lung screening CT scans and PET scans are now loaded to PACS for review. [facility] [id number] Miscellaneous Notes* Telephone Encounter - Alka Talbot RCP - 04/20/2024 1:55 PM EST Multiple prior lung screening CT scans and PET scans are now loaded to PACS for review. * Telephone Encounter - Alka Talbot RCP - 04/20/2024 12:20 PM EST Navigator sent right fax request to [facility] for electronic push of all prior lung screening CT scans, CT chest scans, and PET scans. documented in this encounterSProMedica Memorial [id number] Telephone encounter Note* Telephone Encounter - Alka Talbot RCP - 04/20/2024 12:20 PM EST Navigator sent right fax request to [facility] for electronic push of all prior lung screening CT scans, CT chest scans, and PET scans. [facility] [id number] Telephone encounter Note* Telephone Encounter - Carleen Bran RN - 04/20/2024 9:00 AM EST Patient scheduled for EBUS/ENB Physician performing: Dr. Jarek Vu MD Location: [facility] ENDOSCOPY Bronch Date: 04/26/24 Time: 9 am Arrival time: 730 am Telephone visit scheduled for results? yes Procedure placed on physician's outlook calendar? yes Does patient take blood thinners? No Does patient take ASA?No Does patient take NSAIDS? No Does patient take diabetic medications? Yes - metformin Does patient have Pacemaker, defibrillator, life vest, other implants? No Recent illness or covid exposure? No Chance of ? No Patient aware will need transportation home from hospital? Yes Patient instructed to bring insurance card, photo ID and mask? Yes Surgery Scheduling Patient notified of procedure date, time, prep/NPO status, arrival time, location and entrance, must have a ride, and to bring: drivers license, insurance card, mask, med list. Reviewed prep and itinerary with patient? yes Patient voices understanding? Yes [facility] [id number] Miscellaneous Notes* Telephone Encounter - Carleen Bran RN - 04/20/2024 9:00 AM EST Patient scheduled for EBUS/ENB Physician performing: Dr. Jraek Vu MD Location: [facility] ENDOSCOPY Bronch Date: 04/26/24 Time: 9 am Arrival time: 730 am Telephone visit scheduled for results? yes Procedure placed on physician's outlook calendar? yes Does patient take blood thinners? No Does patient take ASA?No Does patient take NSAIDS? No Does patient take diabetic medications? Yes - metformin Does patient have Pacemaker, defibrillator, life vest, other implants? No Recent illness or covid exposure? No Chance of ? No Patient aware will need transportation home from hospital? Yes Patient instructed to bring insurance card, photo ID and mask? Yes Surgery Scheduling Patient notified of procedure date, time, prep/NPO status, arrival time, location and entrance, must have a ride, and to bring: drivers license, insurance card, mask, med list. Reviewed prep and itinerary with patient? yes Patient voices understanding? Yes * Telephone Encounter - Carleen Bran RN - 04/19/2024 3:[address] Vu recommended getting chest CT scheduled sooner and okay to schedule 04/26 at [facility] with himif bronch time available via secure chat. This RN was able to get chest CT rescheduled to at 1130 am. Patient is aware of change in date/time. Scheduled EBUS/ENB for 04/26/24 at [address] Vu at [facility]. Patient and spouse agreeable to have procedure prep/itinerary sent via [employer]. They will call if any questions. * Telephone Encounter - Carleen Bran RN - 04/19/2024 3:01 PM EST Patient spouse returned call with patient listening in the background. Patient prefers [facility] for procedure. Next day provider on [facility] bronch schedule is 05/10/24. Patient is scheduled for chest CT 04/28/24. Will discuss with provider and if okay to maintain this date will schedule. * Telephone Encounter - Kathy Dumont - 04/16/2024 3:08 PM EST Patient is active with [employer] and [employer] and no PA needed for testing/procedures when MCR prime * Telephone Encounter - Carleen Bran RN - 04/16/2024 1:56 PM EST Patient to be scheduled for EBUS/ENB per Dr. Vu for lung mass and mediastinal adenopathy. Called and left voicemail requesting a return call to get procedure scheduled. Her chest CT is scheduled 04/28/24 at [facility]. documented in this [facility]11-18-2024 Telephone encounter Note* Telephone Encounter - Carleen Bran RN - 04/19/2024 3:[address] Vu recommended getting chest CT scheduled sooner and okay to schedule 04/26 at [facility] with himif bronch time available via secure chat. This RN was able to get chest CT rescheduled to at 1130 am. Patient is aware of change in date/time. Scheduled EBUS/ENB for 04/26/24 at [address] Vu at [facility]. Patient and spouse agreeable to have procedure prep/itinerary sent via [employer]. They will call if any questions. [facility] [id number] Miscellaneous Notes* Telephone Encounter - Carleen Bran RN - 04/19/2024 3:[address] Vu recommended getting chest CT scheduled sooner and okay to schedule 04/26 at [facility] with himif bronch time available via secure chat. This RN was able to get chest CT rescheduled to at 1130 am. Patient is aware of change in date/time. Scheduled EBUS/ENB for 04/26/24 at [address] Vu at [facility]. Patient and spouse agreeable to have procedure prep/itinerary sent via [employer]. They will call if any questions. * Telephone Encounter - Carleen Bran RN - 04/19/2024 3:01 PM EST Patient spouse returned call with patient listening in the background. Patient prefers [facility] for procedure. Next day provider on [facility] bronch schedule is 05/10/24. Patient is scheduled for chest CT 04/28/24. Will discuss with provider and if okay to maintain this date will schedule. * Telephone Encounter - Kathy Dumont - 04/16/2024 3:08 PM EST Patient is active with [employer] and [employer] and no PA needed for testing/procedures when MCR prime * Telephone Encounter - Carleen Bran RN - 04/16/2024 1:56 PM EST Patient to be scheduled for EBUS/ENB per Dr. Vu for lung mass and mediastinal adenopathy. Called and left voicemail requesting a return call to get procedure scheduled. Her chest CT is scheduled 04/28/24 at [facility]. documented in this [facility]11-18-2024 NotePatient spouse returned call with patient listening in the background. Patient prefers [facility] for procedure. Next day provider on [facility] bronch schedule is 05/10/24. Patient is scheduled for chest CT 04/28/24. Will discuss with provider and if okay to maintain this date will schedule.[facility]11-18-2024 Telephone encounter Note* Telephone Encounter - Carleen Bran RN - 04/19/2024 3:01 PM EST Patient spouse returned call with patient listening in the background. Patient prefers [facility] for procedure. Next day provider on [facility] bronch schedule is 05/10/24. Patient is scheduled for chest CT 04/28/24. Will discuss with provider and if okay to maintain this date will schedule. [facility] [id number] NotePatient is active with MCR and [employer] and no PA needed for testing/procedures when MCR [facility]11-15-2024 Telephone encounter Note* Telephone Encounter - Kathy Dumont - 04/16/2024 3:08 PM EST Patient is active with [employer] and [employer] and no PA needed for testing/procedures when MCR prime [place] [id number] Miscellaneous Notes* Telephone Encounter - Kathy Dumont - 04/16/2024 3:08 PM EST Patient is active with [employer] and [employer] and no PA needed for testing/procedures when MCR prime * Telephone Encounter - Carleen Bran RN - 04/16/2024 1:56 PM EST Patient to be scheduled for EBUS/ENB per Dr. Vu for lung mass and mediastinal adenopathy. Called and left voicemail requesting a return call to get procedure scheduled. Her chest CT is scheduled 04/28/24 at [facility]. documented in this encounterSProMedica Memorial [id number] NotePatient to be scheduled for EBUS/ENB per Dr. Vu for lung mass and mediastinal adenopathy. Called and left voicemail requesting a return call to get procedure scheduled. Her chest CT is scheduled 04/28/24 at [facility]11-15-2024 Telephone encounter Note* Telephone Encounter - Carleen Bran RN - 04/16/2024 1:56 PM EST Patient to be scheduled for EBUS/ENB per Dr. Vu for lung mass and mediastinal adenopathy. Called and left voicemail requesting a return call to get procedure scheduled. Her chest CT is scheduled 04/28/24 at [facility]. [facility] [id number] History of Present illness Narrative* Jarek Vu MD - 04/16/2024 10:30 AM EST Chief Complaint: Chief Complaint Patient presents with New Patient needs ct guided bx History of Present Illness: HPI 68 y/o female seen in [place] for enlarging left (upper lobe) nodule/mass. Had been followed by pulmonary there. Enlargement prompted attempt at CT biopsy which could not be performed. She had a PET scan which showed activity in the DIONY as well as mediastinal (?AP window) lymph nodes. PFTs at [place] showed overall normal pulmonary mechanics with only mildly diminished gas exchange. She takes Trelegy for COPD. She is a former smoker. Overall healthy and active. 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 No occupational exposures. I reviewed her outside PET and personally reviewed/interpreted her PFTs. I reviewed her prior outside pulmonary notes. I discussed her case directl y with our navigator to obtain outside imaging and coordinate care. Past Medical History: COPD, hypothyroid, DMII, hyperlipidemia Social History: Social History Socioeconomic History Marital status: Tobacco Use Smoking status: Former Current packs/day: 0.00 Types: Cigarettes Quit date: 2014 Years since quittin.8 Smokeless tobacco: Never Family History: non-contributory per patient ROS: Review of Systems All other systems reviewed and are negative. Medications: Current Outpatient Medications Medication Sig Dispense Refill albuterol 108 (90 Base) MCG/ACT inhaler Inhale 2 puffs every 6 hours as needed for wheezing or shortness of breath. DULoxetine (Cymbalta) [address] capsule Take 60 mg by mouth daily. levothyroxine (Synthroid, Levoxyl) 100 MCG tablet Take 100 mcg by mouth daily. lovastatin (Mevacor) 40 MG tablet Take 40 mg by mouth Nightly. metFORMIN (Glucophage) 1000 MG tablet 1,000 mg daily (with breakfast). Trelegy Ellipta 100-62.5-25 MCG/ACT aerosol powder Inhale 1 puff daily. triamcinolone (Kenalog) 0.1 % cream Apply 1 Application topically 2 times daily. No current facility-administered medications for this visit. Allergies: Allergies Allergen Reactions Zoster Vaccine Recombinant, Adjuvanted Other Reaction(s): Rash Physical Exam: BP Temp Pulse Resp SpO2 BP 132/81 Pulse 69 Ht 5' 5 (1.651 m) Wt 219 lb 12.8 oz (99.7 kg) SpO2 96% BMI 36.58 kg/m Physical Exam Constitutional: General: She is not in acute distress. Appearance: She is obese. She is not ill-appearing or toxic-appearing. HENT: Head: Normocephalic and atraumatic. Nose: Nose normal. No congestion or rhinorrhea. Mouth/Throat: Mouth: Mucous membranes are moist. Pharynx: Oropharynx is clear. No oropharyngeal exudate. Eyes: General: No scleral icterus. Conjunctiva/sclera: Conjunctivae normal. Cardiovascular: Rate and Rhythm: Normal rate and regular rhythm. Heart sounds: No murmur heard. No friction rub. No gallop. Pulmonary: Effort: Pulmonary effort is normal. No respiratory distress. Breath sounds: No stridor. No wheezing, rhonchi or rales. Abdominal: General: There is no distension. Musculoskeletal: General: No swelling, tenderness, deformity or signs of injury. Skin: General: Skin is warm and dry. Coloration: Skin is not pale. Findings: No erythema or rash. Neurological: General: No focal deficit present. Mental Status: She is alert and oriented to person, place, and time. Psychiatric: Mood and Affect: Mood normal. Behavior: Behavior normal. Thought Content: Thought content normal. Assessment and Plan: 1. Lung mass (Primary) Will obtain outside PET. Given PET findings though, anticipate sampling/staging with EBUS and navigational bronchoscopy. Suspicious/concerning for malignancy. Will coordinate care - including potential surgical evaluation if appropriate or coordinate care closer to home depending on needs based on pathology/staging. Given time frame and need for navigational bronchoscopy will repeat CT now for planning purposes. - CT chest wo IV contrast; Future 2. Mediastinal adenopathy Assess with EBUS as above. - CT chest wo IV contrast; Future 3. Chronic obstructive pulmonary disease, unspecified COPD type (HCC) Mild disease. Should not limit treatment options. Well controlled with ICS/LABA/LAMA Follow-up: 1 week after bronchoscopy documented in this [facility]11-15-2024 History of Present illness Narrative* Jarek Vu MD - 04/16/2024 10:30 AM EST Chief Complaint: Chief Complaint Patient presents with New Patient needs ct guided bx History of Present Illness: HPI 68 y/o female seen in [place] for enlarging left (upper lobe) nodule/mass. Had been followed by pulmonary there. Enlargement prompted attempt at CT biopsy which could not be performed. She had a PET scan which showed activity in the DIONY as well as mediastinal (?AP window) lymph nodes. PFTs at [place] showed overall normal pulmonary mechanics with only mildly diminished gas exchange. She takes Trelegy for COPD. She is a former smoker. Overall healthy and active. 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 No occupational exposures. I reviewed her outside PET and personally reviewed/interpreted her PFTs. I reviewed her prior outside pulmonary notes. I discussed her case directl y with our navigator to obtain outside imaging and coordinate care. Past Medical History: COPD, hypothyroid, DMII, hyperlipidemia Social History: Social History Socioeconomic History Marital status: Tobacco Use Smoking status: Former Current packs/day: 0.00 Types: Cigarettes Quit date: 2014 Years since quittin.8 Smokeless tobacco: Never Family History: non-contributory per patient ROS: Review of Systems All other systems reviewed and are negative. Medications: Current Outpatient Medications Medication Sig Dispense Refill albuterol 108 (90 Base) MCG/ACT inhaler Inhale 2 puffs every 6 hours as needed for wheezing or shortness of breath. DULoxetine (Cymbalta) [address] capsule Take 60 mg by mouth daily. levothyroxine (Synthroid, Levoxyl) 100 MCG tablet Take 100 mcg by mouth daily. lovastatin (Mevacor) 40 MG tablet Take 40 mg by mouth Nightly. metFORMIN (Glucophage) 1000 MG tablet 1,000 mg daily (with breakfast). Trelegy Ellipta 100-62.5-25 MCG/ACT aerosol powder Inhale 1 puff daily. triamcinolone (Kenalog) 0.1 % cream Apply 1 Application topically 2 times daily. No current facility-administered medications for this visit. Allergies: Allergies Allergen Reactions Zoster Vaccine Recombinant, Adjuvanted Other Reaction(s): Rash Physical Exam: BP Temp Pulse Resp SpO2 BP 132/81 Pulse 69 Ht 5' 5 (1.651 m) Wt 219 lb 12.8 oz (99.7 kg) SpO2 96% BMI 36.58 kg/m Physical Exam Constitutional: General: She is not in acute distress. Appearance: She is obese. She is not ill-appearing or toxic-appearing. HENT: Head: Normocephalic and atraumatic. Nose: Nose normal. No congestion or rhinorrhea. Mouth/Throat: Mouth: Mucous membranes are moist. Pharynx: Oropharynx is clear. No oropharyngeal exudate. Eyes: General: No scleral icterus. Conjunctiva/sclera: Conjunctivae normal. Cardiovascular: Rate and Rhythm: Normal rate and regular rhythm. Heart sounds: No murmur heard. No friction rub. No gallop. Pulmonary: Effort: Pulmonary effort is normal. No respiratory distress. Breath sounds: No stridor. No wheezing, rhonchi or rales. Abdominal: General: There is no distension. Musculoskeletal: General: No swelling, tenderness, deformity or signs of injury. Skin: General: Skin is warm and dry. Coloration: Skin is not pale. Findings: No erythema or rash. Neurological: General: No focal deficit present. Mental Status: She is alert and oriented to person, place, and time. Psychiatric: Mood and Affect: Mood normal. Behavior: Behavior normal. Thought Content: Thought content normal. Assessment and Plan: 1. Lung mass (Primary) Will obtain outside PET. Given PET findings though, anticipate sampling/staging with EBUS and navigational bronchoscopy. Suspicious/concerning for malignancy. Will coordinate care - including potential surgical evaluation if appropriate or coordinate care closer to home depending on needs based on pathology/staging. Given time frame and need for navigational bronchoscopy will repeat CT now for planning purposes. - CT chest wo IV contrast; Future 2. Mediastinal adenopathy Assess with EBUS as above. - CT chest wo IV contrast; Future 3. Chronic obstructive pulmonary disease, unspecified COPD type (HCC) Mild disease. Should not limit treatment options. Well controlled with ICS/LABA/LAMA Follow-up: 1 week after bronchoscopy documented in this [facility]11-15-2024 Instructions* Patient Instructions* Alka Ulrich MA - 04/16/2024 10:30 AM EST YOUR APPOINTMENT TODAY WAS WITH THE [facility] LUNG NODULE CLINIC, COPD CLINIC, PULMONARY AND SLEEP MEDICINE OFFICE. PLEASE CALL OUR OFFICE AT [phone] IF YOU HAVE NOT RECEIVED YOUR TEST RESULTS 7 DAYS AFTER TESTING IS COMPLETED. PLEASE REMEMBER TO REQUEST REFILLS AT YOUR OFFICE VISITS. PHONE/FAX REQUESTS REQUIRE 48-72 HOURS FOR RESPONSE. A FRIENDLY REMINDER COPAYS ARE DUE AT TIME OF SERVICE. THANK YOU. Our Patients Are Important! We want to improve and you can help. After your visit we want you to feel: Listened to, Respected and have your health care explained. You may receive a survey asking you about your visit. Please complete the survey. We will use your feedback to make improvements. COVID-19 VACCINATION INFORMATION: [facility] [phone] [facility]/CORONAVIRUS/VACCINE [facility] Central Scheduling [phone] [facility] Sleep Scheduling [phone] documented in this [facility]11-15-2024 Instructions* Patient Instructions* Alka Ulrich MA - 04/16/2024 10:30 AM EST YOUR APPOINTMENT TODAY WAS WITH THE [facility] L[facility]G [facility]ODULE [facility], COPD CLINIC, PULMONARY AND SLEEP MEDICINE OFFICE. PLEASE CALL OUR OFFICE AT [phone] IF YOU HAVE NOT RECEIVED YOUR TEST RESULTS 7 DAYS AFTER TESTING IS COMPLETED. PLEASE REMEMBER TO REQUEST REFILLS AT YOUR OFFICE VISITS. PHONE/FAX REQUESTS REQUIRE 48-72 HOURS FOR RESPONSE. A FRIENDLY REMINDER COPAYS ARE DUE AT TIME OF SERVICE. THANK YOU. Our Patients Are Important! We want to improve and you can help. After your visit we want you to feel: Listened to, Respected and have your health care explained. You may receive a survey asking you about your visit. Please complete the survey. We will use your feedback to make improvements. COVID-19 VACCINATION INFORMATION: [facility] [phone] [facility]/CORONAVIRUS/VACCINE [facility] Central Scheduling [phone] [facility] Sleep Scheduling [phone] documented in this [facility]06-08-2022 NoteHNO ID: [id number] Author: RT Michel(R) Service: ? Author Type: Technologist Type: Progress Notes Filed: 11/07/2021 10:43 AM Note Text: Radiology Service Progress Note PATIENT NAME: Andrea Calix DATE OF SERVICE: November 07, 2021 TIME: 10:17 AM PATIENT IDENTITY VERIFICATION COMPLETED USING TWO (2) IDENTIFIERS: Name and Date of confirmed by patient verbally. FALL SCREENING: Has the patient had 2 falls in the last year or 1 fall with injury or currently using an Ambulatory Assistive Device (Walker, Cane, Wheelchair, Crutches, etc.)? No PATIENT GENDER DATA: Female. status: : No status: NO. PATIENT RELEVANT IMPLANT DATA REVIEWED: Not Applicable RADIOLOGY DEPARTMENT: Mammography PERIPHERAL IV DATA: Not applicable SIGNED BY: RT Michel(R) November 07, 2021 10:17 [facility]06-08-2022 History of Present illness Narrative* RT Michel(R) - 11/07/2021 10:30 AM EDT Radiology Service Progress Note PATIENT NAME: Andrea Calix DATE OF SERVICE: November 07, 2021 TIME: 10:17 AM PATIENT IDENTITY VERIFICATION COMPLETED USING TWO (2) IDENTIFIERS: Name and Date of confirmedby patient verbally. FALL SCREENING: Has the patient had 2 falls in the last year or 1 fall with injury or currently using an Ambulatory Assistive Device (Walker, Cane, Wheelchair, Crutches, etc.)? No PATIENT GENDER DATA: Female. status: : No status: NO. PATIENT RELEVANT IMPLANT DATA REVIEWED: Not Applicable RADIOLOGY DEPARTMENT: Mammography PERIPHERAL IV DATA: Not applicable SIGNED BY: RT Michel(R) November 07, 2021 10:17 AM [facility] Miscellaneous Notes* Letter - Mammography Coordinator - 09/21/2021 4:31 PM EDT September 21, 2021 PID: [id number] Andrea Calix [address] [place] [address] Dear Ms. Calix, Your recent breast imaging exam on 09/21/2021 showed a possible finding that requires additional imaging studies for a complete evaluation. Most such findings are probably benign (not cancer). Your mammogram demonstrates that you have dense breast tissue, which could hide abnormalities. Dense breast tissue, in and of itself, is a relatively common condition. Therefore, this information is not provided to cause undue concern; rather, it is to raise your awareness and promote discussion with your health care provider regarding the presence of dense breast tissue in addition to other riskfactors. If you have a healthcare provider who ordered/prescribed your screening mammogram: Please call [phone] or [phone] to schedule an appointment for your additional imaging (if youhave not already done so). If you DO NOT have a healthcare provider (ie you did not have an order/prescription for your screening mammogram): Please call to schedule an appointment for your additional imaging (if you have not already done so). You must have an order/prescription from your physician when calling to schedule your appointment. If your order/prescription is not electronic, you must bring the hard copy with you on the day of your exam to avoid delays. Your imaging studies and reports are kept on file at [facility] as part of your permanent medical record, and are available for your continuing care. Thank you for allowing us to help in meeting your health care needs. Sincerely, Dr. Jones Interpreting Radiologist [facility] (Additional imaging) [facility] History of Past illness Narrative* Problem Noted Date Resolved Date Routine Gynecological Examination 05/06/2008 07/09/2012 Overview: [facility] Eduard Calvin documented as of this encounter (statuses as of 09/22/2021) [facility] History of Past illness Narrative* Problem Noted Date Resolved Date Routine Gynecological Examination 05/06/2008 07/09/2012 Overview: [facility] CCEduard Calvin documented as of this encounter (statuses as of 09/25/2021) [place] [address]-05-2008 History of Past illness Narrative* Problem Noted Date Resolved Date Routine Gynecological Examination 05/06/2008 07/09/2012 Overview: [facility] Eduard Calvin documented as of this encounter (statuses as of 11/08/2021) [facility]* Diagnosis Onset Date Resolution Status Smoking greater than 30 pack years acute BMI 34.0-34.9,adult chronic Chronic obstructive lung disease chronic MARTELL (obstructive sleep apnea) [facility] Work Phone: Evaluation note* Diagnosis Onset Date Resolution Status BMI 34.0-34.9,adult chronic Chronic obstructive lung disease chronic MARTELL (obstructive sleep apnea) [facility] Work Phone: evaluation note* Diagnosis Onset Date Resolution Status Chronic obstructive lung disease chronic Obesity chronic MARTELL (obstructive sleep apnea) chronic Smoking greater than 30 pack years [facility] Work Phone: evaluation note* Diagnosis Lung mass Swelling, mass, or lump in chest Mediastinal adenopathy Enlargement of lymph nodes documented in this encounter [facility]* Diagnosis Lung mass- Primary Swelling, mass, or lump in chest Mediastinal adenopathy Enlargement of lymph nodes Chronic obstructive pulmonary disease, unspecified COPD type (HCC) documented in this encounter [facility]* Diagnosis Lung mass Swelling, mass, or lump in chest Mediastinal adenopathy Enlargement of lymph nodes Lung mass Swelling, mass, or lump in chest Mediastinal adenopathy Enlargement of lymph nodes documented in this encounter [facility] note* Diagnosis Lung mass Swelling, mass, or lump in chest Mediastinal adenopathy Enlargement of lymph nodes Lung mass Swelling, mass, or lump in chest Mediastinal adenopathy Enlargement of lymph nodes Lung mass Swelling, mass, or lump in chest Mediastinal adenopathy Enlargement of lymph nodes documented in [facility]* Diagnosis Lung mass- Primary Swelling, mass, or lump in chest Mediastinal adenopathy Enlargement of lymph nodes Chronic obstructive pulmonary disease, unspecified COPD type (HCC) Lung mass Swelling, mass, or lump in chest Mediastinal adenopathy Enlargement of lymph nodes Lung mass Swelling, mass, or lump in chest Mediastinal adenopathy Enlargement of lymph nodes documented in [facility]* Diagnosis Lung mass Swelling, mass, or lump in chest Mediastinal adenopathy Enlargement of lymph nodes Lung mass Swelling, mass, or lump in chest Mediastinal adenopathy Enlargement of lymph nodes Lung mass Swelling, mass, or lump in chest Mediastinal adenopathy Enlargement of lymph nodes documented in this [facility]* Diagnosis Lung mass Swelling, mass, or lump in chest Mediastinal adenopathy Enlargement of lymph nodes Lung mass Swelling, mass, or lump in chest Mediastinal adenopathy Enlargement of lymph nodes Lung mass Swelling, mass, or lump in chest Mediastinal adenopathy Enlargement of lymph nodes [facility] Diagnosis Lung mass Swelling, mass, or lump in chest Mediastinal adenopathy Enlargement of lymph nodes Lung mass Swelling, mass, or lump in chest Mediastinal adenopathy Enlargement of lymph nodes Lung mass Swelling, mass, or lump in chest Mediastinal adenopathy Enlargement of lymph nodes documented in this encounter [facility] note* Diagnosis Lung mass Swelling, mass, or lump in chest Mediastinal adenopathy Enlargement of lymph nodes documented in this encounter [facility] Discharge instructions* Attachments The following attachments cannot be sent through Care Everywhere. * Endobronchial Ultrasound (Qatari) * General Anesthesia Discharge Instructions (Qatari) documented in this [facility] Author Maxi Merlos [facility] Services Note Date/Time November 03, 2024 12:11 pm [facility] [place] [facility] [address] [address] OFFICE VISIT Date of Service: 11/03/24 1145 MR#: [id number] Acct: [id number] Name: ANDREA CALIX Rep #: [id number] : 1955 From: Maxi chau MD Age/Sex: 69/F Location: [facility] Status: Signed HPI Subjective Date of Service 11/03/24 Chief Complaint SCLC on treatment History of Present Illness 68-year-old female with small cell lung cancer. Disease was detected on lung cancer screening: November 26, [address]: IMPRESSION: New pulmonary nodules measuring up to 4 mm in the left upper lobe and 7 mm in the lingula. Lung-RADS category 4A. Recommend [address] follow-up. February 24, [address] chest: IMPRESSION: Interval increase in size of a noncalcified nodule left lung apex. Lung-RADS score: 4B - Very Suspicious. Recommend chest CT with or without contrast, PET/CT and/or tissue sampling depending on the probability of malignancy and comorbidities. April 26, 2024 bronchoscopy and EBUS at [facility]: A- lung, left upper lobe transbronchial FNA: Rare atypical cells cannot exclude neoplasm. B- mediastinal lymph node station 11R FNA: No malignant cells identified. C-mediastinal lymph node station 4R FNA: No malignant cells identified. D- mediastinal lymph node station 4L FNA: Positive for malignant cells, favor a high-grade neuroendocrine malignancy. E- mediastinal lymph node station 7 FNA: No malignant cells identified F-mediastinal lymph node station 11L FNA: No malignant cells identified. G-BAL left upper lobe cytology: Rare atypical cells April 30, 2024 PET/CT initial staging: IMPRESSION: 1. Enhanced labeled glucose defined in the left upper lung field, left upper lobe fulfills quantitative criteria for viable neoplasm with single point technique. Histopathologic analysis is recommended. (Hairston et al, Annals of Internal Medicine, 138:724, 2003) 2. Increased FDG concentration noted in the anterior and middle mediastinum aorticopulmonary window fulfills quantitative criteria for malignant transformation. (Herminio peters al, Journal of Clinical Oncology 16:2142, 1998) 3. Facilitated radiopharmaceutical manifest in the left and right lobe of the thyroid colloid does not fulfill quantitative criteria for primary thyroidal neoplastic transformation. Correlation with thyroid ultrasound may be of benefit. May 09, 2024 brain MRI staging: IMPRESSION: No MRI evidence of brain metastases. This is a negative MRI brain with and without contrast and no significant interval changes since 06/12/2010. August 10, 2024 brain MRI: IMPRESSION: No acute process or pathologic enhancement. August 23, 2024 CT chest and abdomen and treatment restaging: IMPRESSION: CT chest: 1. Decreased size of the left apical pulmonary nodule. 2. Persistent ground-glass opacification within the anterior left upper lobe, which is indeterminate in etiology and may represent infectious/inflammatory pneumonitis. Continued attention on follow-upimaging recommended. Treatment summary and response: * 05/17/2024 ? 06/10/2024: received definitive chemoradiation consisting of 5400 cGy delivered in 30 fractions twice daily with at least 4500 cGy close going to PTV that is overlapping or near esophagus and heart. She was treated using a VMAT plan with 6 MV photons. Patient received her first cycle of systemic chemotherapy (cisplatin etoposide) concomitantly. * June 14?July carboplatin and etoposide (3 cycles). * Durvalumab maintenance for 2 years August 2024-. [facility] Medical History Fatigue Encounter for antineoplastic immunotherapy History of lipoma Right upper limb pain Hypomagnesemia Drug induced neutropenia Hypokalemia Diarrhea Encounter for chemotherapy management Encounter for education Wears glasses Wears dentures Post-menopausal Cancer Thyroid disease Diabetes Arthritis Anemia High cholesterol Heartburn Gastric reflux Former smoker CPAP (continuous positive airway pressure) dependence Sleep apnea Leg cramps History of edema History of echocardiogram History of stress test Regional lymph node metastasis present Primary fibromyalgia syndrome Chondromalacia Chronic obstructive lung disease Depression Hyperlipidemia Vitamin D deficiency Hypothyroidism Localized swelling, mass and lump, unspecified MARTELL (obstructive sleep apnea) Dyspnea Right ankle pain Surgical History History of colonoscopy History of ankle surgery History of cataract extraction Family History Mother Heart disease CVA (cerebral vascular accident) Brain tumor Father Cancer Stomach Heart disease Social History Smoking Status: Former smoker quit date: 06/02/16 pack-years: 63 Tobacco: How many years used: 42 Electronic Cigarette Use: not used how long ago did patient quit smokin years second hand exposure: Yes quit status: quit date established alcohol intake: never substance use type: does not use ROS Constitutional Constitutional: Reports systems reviewed and no addt'l complaints, except as documented; Denies fatigue, fever(s) or weight loss Eyes Eyes: Reports systems reviewed and no addt'l complaints, except as documented; Denies change in vision ENT HEENT: Reports systems reviewed and no addt'l complaints, except as documented; Denies mouth lesions Cardiovascular Cardiovascular: Reports systems reviewed and no addt'l complaints, except as documented; Denies chest pain with activity or edema Respiratory/Chest Respiratory/Chest: Reports cough and dyspnea on exertion; Denies hemoptysis Gastrointestinal Gastrointestinal: Reports systems reviewed and no addt'l complaints, except as documented; Denies change in bowel habits, diarrhea, hematochezia or melena Genitourinary Genitourinary: Reports systems reviewed and no addt'l complaints, except as documented, urinary incontinence and other Details: Stress and urgency incontinence ; Denies hematuria Musculoskeletal Musculoskeletal: Reports systems reviewed and no addt'l complaints, except as documented and arthralgias Integumentary Integumentary: Reports systems reviewed and no addt'l complaints, except as documented; Denies new lesions Neurologic Neurologic: Reports systems reviewed and no addt'l complaints, except as documented; Denies focal weakness or paresthesias Psychiatric Psychiatric: Reports systems reviewed and no addt'l complaints, except as documented Endocrine Endocrinology: Reports systems reviewed and no addt'l complaints, except as documented Hematologic/Lymphatic Hematologic/Lymphatic: Reports systems reviewed and no addt'l complaints, exceptas documented Allergic/Immunologic Allergic/Immunologic: Reports systems reviewed and no addt'l complaints, except as documented Intake Vital Signs 09/08/24 08:20 11/03/24 11:46 11/03/24 11:51 Height 5 ft 4 in 5 ft 4 in 5 ft 4 in Weight: 91.342 kg BMI 34.5 BP 140/84 H Blood Pressure Location Lt brachial Position Sitting Respiration 18 Pulse 74 Pulse Source Monitor Temp 98.0 F Temperature Source Temporal Artery Pulse Oximetry (%) 98 Oxygen Delivery Method room air Intake Is patient in pain?: No Allergies vaccine adjuvant system, AS01B liposomal (From Shingrix (PF)) Allergy (Verified 11/03/24 11:49) Rash varicella-zoster virus glycoprotein E, recombinant (From Shingrix (PF)) Allergy (Verified 11/03/24 11:49) Rash Medications ?Medication ?Instructions ?Recorded ?Confirmed ?Type duloxetine 60 mg capsule,delayed 60 mg PO DAILY depres mana 11/25/13 11/03/24 History release lovastatin 40 mg tablet 40 mg PO DAILY hld 11/25/13 11/03/24 History cholecalciferol (vitamin D3) 125 5,000 unit PO DAILY s upplement 06/25/23 11/03/24 History mcg (5,000 unit) capsule levothyroxine 100 mcg tablet 100 mcg PO DAILY thyroid 06/25/23 11/03/24 History metformin 1,000 mg tablet 1,000 mg PO BID dm 06/25/23 11/03/24 History acetaminophen 500 mg capsule 500 mg PO Q6H PRN pain 11/03/24 History lidocaine-prilocaine 2.5 %-2.5 % 1 applic topical ONCE PRN port 05/17/24 11/03/24 Rx topical cream access 30 days #30 grams L.acidophil,salivari-Bifido 1 cap PO BID #0 caps 07/0511/03/24 Rx bifidum-Strep thermoph 175 mg capsule sennosides 8.6 mg-docusate sodium 2 tab PO BID #0 tabs 07/05/24 11/03/24 Rx 50 mg tablet (Stimulant Laxative Plus) omeprazole 20 mg capsule,delayed 20 mg PO QDAY 5 11/03/24 History release fluticasone fur. 100 mcg-umeclid 1 inh inhalation ARNALDO Y asthma #3 ea 10/08/24 11/03/24 Rx 62.5 mcg-vilant 25 mcg inhalat.powder (Trelegy Ellipta) albuterol sulfate 90 mcg/actuation 2 puff inhalation Q 6H asthma #18 10/11/24 11/03/24 Rx aerosol inhaler (Ventolin HFA) grams Have you fallen in the past year?: No Central Venous Access Central Venous Access: Yes Port/PICC: Port CBC, CMP drawn 09/19/2024 reviewed in EMR Exam Physical Exam Narrative ECOG 1 Const alert, oriented x3 and no apparent distress General Appearance: cooperative and comfortable Nutritional Appearance: morbidly obese HEENT normocephalic Face and Sinus: normal facial exam Mouth: oral and palatal mucosa normal Teeth and Gingiva: dentures Eyes General Eye: normal appearance of both eyes Neck no lymphadenopathy and no JVD Chest Chest: vascular access Resp clear to auscultation bilaterally Auscultation: diminished lung sounds bilateral and diffuse Cardio regular rate and regular rhythm Jugular Venous Distention: Negative for JVD GI soft to palpation, non-tender and non-distended Back/Spine thoracic and lumbar spine normal to inspection Extremity General Extremity: Negative for clubbing, cyanosis or edema Skin no rashes or lesions noted Neuro oriented x3, CN's II-XII intact bilaterally, moves all extremities and no focal motor deficits Coordination / Balance: [id number] test normal Speech: speech normal Gait (Neuro): normal gait Psych mental status grossly normal Coding Level of Care Code Off vis,est,level 4 Exam Problem Focused Diagnoses Small cell lung cancer, left upper lobe C34.12 Regional lymph node metastasis present C77.9 Assessment and Plan Assessment and Plan (1) Small cell lung cancer, left upper lobe: Status: Chronic (2) 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 Disease was detected on lung cancer screening. Patient received concomitant chemo (cisplatin and etoposide) with radiation May 2024 followed by 4 cycles carboplatin etoposide June-July 2024. She was hospitalized July 02 - July 05, 2024 with acute diarrhea, acute dehydration, electrolyte imbalance, metabolic encephalopathy, suspected acute cystitis and recovered. Her disease appears to be in remission by imaging July 2024. Started durvalumab maintenance for 2 years August 2024, so far tolerated with no grade 3 or 4 toxicities. Chronic comorbid conditions: Morbid obesity, COPD, diabetes, grade 1 peripheral neuropathy from diabetes, obstructive sleep apnea, DJD, dyslipidemia, hypothyroidism. Plan: Based on NCCN guidelines and up-to-date review of treatment of limited stage small cell lung cancer: 1. Durvalumab maintenance for 2 years. Treatment is with curative intent. 2. Residual anemia post chemoradiation, no evidence for iron or B12 deficiencies, improved. 3. Elective imaging with CT scan chest and abdomen end of October/early November 2024. Patient seen with her impression and plan discussed Maxi Merlos MD Behavioral Services Tech, [facility] Divisions of Medical Oncology & Hematology Department of Internal Medicine [place] [id number] This note was generated using a voice recognition system software. Although itwas reviewed by the author prior to finalization, it may still contain incorrectwords, spelling, and punctuation that were not noted when reviewing prior to saving. If a clinically significant typo or inaccurately typed phrase is noted, please notify the author.. Clinical Quality Measures Falls Risk Screening/Assistive Devices Have you fallen in the past year?: No 11/03/24 1211 <Electronically signed by Maxi barajas MD> Date _ Maxi Merlos MD Cosigner Signature: Date (if applicable) CC: ~ [facility] Work Phone: Reason for referral (narrative)No reason for referral information availableWWilson Street Hospital Work Phone: Reason for visit Narrative* Diagnostic Procedure Only (Routine) - Outside PCP Specialty Diagnoses / Procedures Referred By Chavo messina Referred To Contact Radiology / [facility] Diagnoses Mammogram, screening, bilateral-3D preferred Z12.31 Procedures MAMMOGRAM TOMOGRAM SCREEN Fco Mccarthy MD [address] [place] [address] Radio Mammo [facility] [address] [place] [address] Referral ID Status Reason Start Date Expiration Date V isits Requested Visits Authorized [id number] Outside PCP 09/21/2021 12/20/[address] [facility] for visit Narrative* Imaging (Routine) - Closed Specialty Diagnoses / Procedures Referred By Chavo messina Referred To Contact Radiology Diagnoses Lung mass Mediastinal adenopathy Procedures CT chest wo IV contrast Jarek Vu MD [address] [place] [id number] Phone: tel: fax: Referral ID Status Reason Start Date Expiration Date Visits Re quested Visits Authorized [id number] Closed 04/16/2024 04/16/2025 1 1 [facility] for visit Narrative* Auth/Cert (Routine) Specialty Diagnoses / Procedures Referred By Chavo messina Referred To Contact Diagnoses Lung mass Mediastinal adenopathy Procedures NJ BRNSCHSC TNDSC EBUS DX/TX INTERVENTION PERPH LES [place] BRONCHOSCOPY W/CPTR-ASST IMAGE-GUIDED NAVIGATION ENDOBRONCHIAL ULTRASOUND BRONCHOSCOPY ELECTROMAGNETIC NAVIGATIONAL BRONCHOSCOPY Jarek Vu MD [address] [place] [address] Phone: tel: fax: [facility] Endoscopy [address] [place] [address] Phone: tel: Referral ID Status Reason Start Date Expiration Date Visits Re quested Visits Authorized [id number] 1 1 [facility] Health Summary Purpose Family History No Family History Records Found Relationship Condition Age at Onset Recorded Date/T soham mother Cardiac disease Unknown Cerebrovascular accident (CVA) Unknown Intracranial tumor Unknown father Malignant neoplasm Unknown Cardiac disease Unknown Advance Directives No Advanced Directives Records Found Advance Directive Response Recorded Date/ Time Living Will No November 13, 2020 8:29pm Power of Heating And Cooling Systems Engineer No November 13 8:29pm Date Activated Date Inactivated Comments 04/26/2024 7:54 AM 04/26/2024 2:12 PM Date Activated Date Inactivated Comments 04/26/2024 7:54 AM 04/26/2024 2:12 PM Advance Directive Response Recorded Date/ Time Living Will No November 13, 2020 8:29pm Do you have a Healthcare Power of Heating And Cooling Systems Engineer? No November 13, 2020 8:29pm Advance Directives on File No Lidia 2024 4:29pm Living Will No July 29, 2 025 4:29pm Do you have a Healthcare Power of Heating And Cooling Systems Engineer? No July 29, 2024 4:29pm Advance Directives No July 4:29pm Living Will No May 12, 2 024 3:13pm Do you have a Healthcare Power of Heating And Cooling Systems Engineer? No May 12, 2024 3:13pm Living Will No May 31, 2 024 2:03pm Do you have a Healthcare Power of Heating And Cooling Systems Engineer? No May 31, 2024 2:03pm Living Will No July 02 9:58pm Do you have a Healthcare Power of Heating And Cooling Systems Engineer? No July 02, 2024 9:58pm Advance Directive Response Recorded Date/ Time Living Will No November 13, 2020 8:29pm Do you have a Healthcare Power of Heating And Cooling Systems Engineer? No November 13, 2020 8:29pm Advance Directives on File No September 08, 2024 10:08am Living Will No September 08, 2024 10:08am Do you have a Healthcare Power of Heating And Cooling Systems Engineer? No September 08, 2024 10:08am Advance Directives No September 08 10:08am Living Will No July 02 9:58pm Do you have a Healthcare Power of Heating And Cooling Systems Engineer? No July 02, 2024 9:58pm Advance Directive Response Recorded Date/ Time Living Will No November 13, 2020 8:29pm Do you have a Healthcare Power of Heating And Cooling Systems Engineer? No November 13, 2020 8:29pm Advance Directives on File No November 03, 2024 1:02pm Living Will No November 03, 2024 1 :02pm Do you have a Healthcare Power of Heating And Cooling Systems Engineer? No November 03, 2024 1:02pm Advance Directives No November 03 1:02pm Advance Directive Response Recorded Date/ Time Living Will No November 13, 2020 8:29pm Do you have a Healthcare Power of Heating And Cooling Systems Engineer? No November 13, 2020 8:29pm Advance Directives on File No September 08, 2024 10:08am Living Will No September 08, 2024 10:08am Do you have a Healthcare Power of Heating And Cooling Systems Engineer? No September 08, 2024 10:08am Advance Directives No September 08 10:08am Advance Directive Response Recorded Date/ Time Advance Directives on File No December 01, 2024 12:34pm Living Will No December 01, 2024 1 2:34pm Do you have a Healthcare Power of Heating And Cooling Systems Engineer? No December 01, 2024 12:34pm Advance Directives No December 01 12:34pm Advance Directive Response Recorded Date/ Time Advance Directives on File No December 29, 2024 12:17pm Living Will No December 29, 2024 12:17pm Do you have a Healthcare Power of Heating And Cooling Systems Engineer? No December 29, 2024 12:17pm Advance Directives No December 29 12:17pm Chief Complaint and Reason for Visit Chief Complaint 6 M FU SMOKER >30 PACK YRS Reason for Visit Smoking greater than 30 pack years BMI 34.0-34.9,adult Chronic obstructive lung disease MARTELL (obstructive sleep apnea) Chief Complaint 6 M FU SCREENING Reason for Visit Smoking greater than 30 pack years BMI 34.0-34.9,adult Chronic obstructive lung disease MARTELL (obstructive sleep apnea) Chief Complaint 5 m fu Reason for Visit BMI 34.0-34.9,adult Chronic obstructive lung disease MARTELL (obstructive sleep apnea) Chief Complaint 6 M FU Reason for Visit Chronic obstructive lung disease Obesity MARTELL (obstructive sleep apnea) Smoking greater than 30 pack years Chief Complaint 6 M FU SCREENING Reason for Visit Chronic obstructive lung disease Obesity MARTELL (obstructive sleep apnea) Smoking greater than 30 pack years Chief Complaint Admit Date DISCUSS RESULTS May 04, 2024 1 :15pm Lung cancer May 05, 2024 1 :25pm PORT PLACEMENT May 07, 2024 1 2:55pm SMALL CELL LUNG CA STAGING May 10, 2024 1:25pm CONSULT - LUNG May 11, 2024 1:31pm Insertion, Vascular Port right poss left May 13, 2024 9:40am Insertion, Vascular Port right poss left May 13, 2024 11:39am CHEMO ED - LABS - NEW START May 7:41am OTV May 18, 2024 8:03am OTV May 21, 2024 8:10am OTV May 24, 2024 2:09pm NEUTROPENIC FEVER AND SEPSIS WITH UNKNOW N SOURCE May 30, 2024 4:18pm NEUTROPENIC FEVER AND SEPSIS WITH UNKNOW N SOURCE May 31, 2024 8:45am NEUTROPENIC FEVER AND SEPSIS WITH UNKNOW N SOURCE May 31, 2024 12:08pm NEUTROPENIC FEVER AND SEPSIS WITH UNKNOW N SOURCE May 31, 2024 12:57pm NEUTROPENIC FEVER AND SEPSIS WITH UNKNOW N SOURCE June 01, 2024 1:53pm OTV June 03, 2024 8: 33am OTV June 08, 2024 8: 08am OTV June 10, 2024 2: 11pm 4 WKS - LABS - CARBO/ETOP June 14, 2024 7:35am TOX CHECK - LABS June 28, 2024 1 2:42pm HYPOKALEMIA UTI AMS AND DYSPHAGIA Januar y 2024 8:14pm HYPOKALEMIA UTI AMS AND DYSPHAGIA Februa 2024 9:50am HYPOKALEMIA UTI AMS AND DYSPHAGIA Februa 2024 12:45pm HYPOKALEMIA UTI AMS AND DYSPHAGIA Februa 2024 4:00pm HYPOKALEMIA UTI AMS AND DYSPHAGIA Februa 2024 7:35am HYPOKALEMIA UTI AMS AND DYSPHAGIA Februa 2024 12:35pm LABS - TREATMENT July 06, 2024 7 :39am 1 MONTH F/U POST RT July 12, 2024 9:44am 1WK LABS TOX CHECK July 13, 2024 9:37am 1WK LABS TOX CHECK July 20, 2024 9:45am 3 WKS - LABS - CARBO/ETOP July 26, 2024 7:32am TOX CHECK - LABS August 02, 2024 1:11 pm TOX CHECK - LABS August 09, 2024 12: 35pm LUNG CA August 10, 2024 10: 36am 1 month follow up-review MRI August 12, 2024 9:36am 4 M FU August 13, 2024 12: 30pm TOX CHECK - LABS August 18, 2024 2:1 0pm 1 unit PRBC August 18, 2024 2:1 5pm Reason for Visit Admit Date Small cell lung cancer, left upper lobe May 04, 2024 1:15pm Chronic obstructive lung disease Decembe r 2023 1:15pm MARTELL (obstructive sleep apnea) May 042023 1:15pm Regional lymph node metastasis present D ecember 2023 1:25pm Small cell lung cancer, left upper lobe May 05, 2024 1:25pm Encounter for insertion of venous access port May 07, 2024 12:55pm Small cell lung cancer, left upper lobe May 07, 2024 12:55pm Regional lymph node metastasis present D ecember 2023 1:31pm Small cell lung cancer, left upper lobe May 11, 2024 1:31pm Encounter for chemotherapy management De cember 2023 7:41am Encounter for education May 17, 7:41am Regional lymph node metastasis present D ecember 2023 7:41am Small cell lung cancer, left upper lobe May 17, 2024 7:41am Small cell lung cancer, left upper lobe May 18, 2024 8:03am Small cell lung cancer, left upper lobe May 21, 2024 8:10am Small cell lung cancer, left upper lobe May 24, 2024 2:09pm Neutropenic fever May 30, 2024 4:18pm Sepsis May 30, 2024 4:18pm Small cell lung cancer, left upper lobe June 03, 2024 8:33am Small cell lung cancer, left upper lobe June 08, 2024 8:08am Small cell lung cancer, left upper lobe June 10, 2024 2:11pm Encounter for chemotherapy management [facility] 2024 7:35am Regional lymph node metastasis present J anuary 2024 7:35am Small cell lung cancer, left upper lobe June 14, 2024 7:35am Hypokalemia June 28, 2024 1 2:42pm Regional lymph node metastasis present J anuary 2024 12:42pm Small cell lung cancer, left upper lobe June 28, 2024 12:42pm Acute cystitis without hematuria July 02, 2024 8:14pm Acute metabolic encephalopathy June 042024 8:14pm Adverse drug reaction July 02, 2024 8:14pm Confusion July 02, 2024 8 :14pm Dysphagia July 02, 2024 8 :14pm Failed prior treatment for drug use aMrcellus palmer 2024 8:14pm Hypokalemia July 02, 2024 8 :14pm Hypomagnesemia July 02, 2024 8 :14pm Nausea July 02, 2024 8 :14pm Obesity (BMI 30.0-34.9) July 02 8:14pm Small cell lung cancer, left upper lobe July 02, 2024 8:14pm Encounter for chemotherapy management [facility] 2024 7:39am Regional lymph node metastasis present [facility] 2024 7:39am Small cell lung cancer, left upper lobe July 06, 2024 7:39am Small cell lung cancer, left upper lobe July 12, 2024 9:44am Anemia July 13, 2024 9:37am Drug induced neutropenia July 13, 2024 9:37am Regional lymph node metastasis present [facility] 2024 9:37am Small cell lung cancer, left upper lobe July 13, 2024 9:37am Hypokalemia July 20, 2024 9:45am Regional lymph node metastasis present [facility] 2024 9:45am Small cell lung cancer, left upper lobe July 20, 2024 9:45am Anemia July 26, 2024 7:32am Encounter for chemotherapy management [facility] 2024 7:32am Hypokalemia July 26, 2024 7:32am Hypomagnesemia July 26, 2024 7:32am Regional lymph node metastasis present F ebruary 2024 7:32am Small cell lung cancer, left upper lobe July 26, 2024 7:32am Anemia August 02, 2024 1:11 pm Encounter for chemotherapy management [facility] 2024 1:11pm Hypokalemia August 02, 2024 1:11 pm Hypomagnesemia August 02, 2024 1:11 pm Regional lymph node metastasis present M [facility] 2024 1:11pm Small cell lung cancer, left upper lobe August 02, 2024 1:11pm Anemia August 09, 2024 12: 35pm Hypokalemia August 09, 2024 12: 35pm Hypomagnesemia August 09, 2024 12: 35pm Regional lymph node metastasis present M [facility] 2024 12:35pm Small cell lung cancer, left upper lobe August 09, 2024 12:35pm Small cell lung cancer, left upper lobe August 12, 2024 9:36am Small cell lung cancer, left upper lobe August 13, 2024 12:30pm Chronic obstructive lung disease July [id number] 12:30pm MARTELL (obstructive sleep apnea) July 12:30pm Anemia August 18, 2024 2:1 0pm Hypomagnesemia August 18, 2024 2:1 0pm Regional lymph node metastasis present M arch 2024 2:10pm Right upper limb pain August 18, 2024 2 :10pm Small cell lung cancer, left upper lobe August 18, 2024 2:10pm Chief Complaint Admit Date TOX CHECK - LABS June 28, 2024 1 2:42pm HYPOKALEMIA UTI AMS AND DYSPHAGIA Januar y 2024 8:14pm HYPOKALEMIA UTI AMS AND DYSPHAGIA Februa 2024 9:50am HYPOKALEMIA UTI AMS AND DYSPHAGIA Februa 2024 12:45pm HYPOKALEMIA UTI AMS AND DYSPHAGIA Februa 2024 4:00pm HYPOKALEMIA UTI AMS AND DYSPHAGIA Februa 2024 7:35am HYPOKALEMIA UTI AMS AND DYSPHAGIA Februa ry 2024 12:35pm LABS - TREATMENT July 06, 2024 7 :39am 1 MONTH F/U POST RT July 12, 2024 9:44am 1WK LABS TOX CHECK July 13, 2024 9:37am 1WK LABS TOX CHECK July 20, 2024 9:45am 3 WKS - LABS - CARBO/ETOP July 26, 2024 7:32am TOX CHECK - LABS August 02, 2024 1:11 pm TOX CHECK - LABS August 09, 2024 12: 35pm LUNG CA August 10, 2024 10: 36am 1 month follow up-review MRI August 12, 2024 9:36am 4 M FU August 13, 2024 12: 30pm TOX CHECK - LABS August 18, 2024 2:1 0pm Malignant neoplasm of upper lobe, left b ronchus or August 23, 2024 1:48pm POSSIBLE LIPOMA ON ARM August 25, 2024 8:38am 3WKS LABS DERB? August 25, 2024 2:3 3pm CHEMO ED August 30, 2024 3:2 3pm NEW START - LABS - DURVA September 08, 2024 7:37am 4 WKS - LABS - DURVA October 06, 2024 10:32 am 1 unit PRBC October 06, 2024 10:45a m SCREENINIG October 15, 2024 2:11p m Reason for Visit Admit Date Hypokalemia June 28, 2024 1 2:42pm Regional lymph node metastasis present J anuary 2024 12:42pm Small cell lung cancer, left upper lobe June 28, 2024 12:42pm Acute cystitis without hematuria July 02, 2024 8:14pm Acute metabolic encephalopathy June 042024 8:14pm Adverse drug reaction July 02, 2024 8:14pm Confusion July 02, 2024 8 :14pm Dysphagia July 02, 2024 8 :14pm Failed prior treatment for drug use Marcellus estela 2024 8:14pm Hypokalemia July 02, 2024 8 :14pm Hypomagnesemia July 02, 2024 8 :14pm Nausea July 02, 2024 8 :14pm Obesity (BMI 30.0-34.9) July 02 8:14pm Small cell lung cancer, left upper lobe July 02, 2024 8:14pm Encounter for chemotherapy management Fe bruary 2024 7:39am Regional lymph node metastasis present F ebruary 2024 7:39am Small cell lung cancer, left upper lobe July 06, 2024 7:39am Small cell lung cancer, left upper lobe July 12, 2024 9:44am Anemia July 13, 2024 9:37am Drug induced neutropenia July 13, 2024 9:37am Regional lymph node metastasis present [facility] 2024 9:37am Small cell lung cancer, left upper lobe July 13, 2024 9:37am Regional lymph node metastasis present [facility] 2024 9:45am Small cell lung cancer, left upper lobe July 20, 2024 9:45am Hypokalemia July 20, 2024 9:45am Anemia July 26, 2024 7:32am Encounter for chemotherapy management [facility] 2024 7:32am Hypomagnesemia July 26, 2024 7:32am Regional lymph node metastasis present [facility] 2024 7:32am Small cell lung cancer, left upper lobe July 26, 2024 7:32am Hypokalemia July 26, 2024 7:32am Anemia August 02, 2024 1:11 pm Encounter for chemotherapy management [facility] 2024 1:11pm Hypomagnesemia August 02, 2024 1:11 pm Regional lymph node metastasis present [facility] 2024 1:11pm Small cell lung cancer, left upper lobe August 02, 2024 1:11pm Hypokalemia August 02, 2024 1:11 pm Anemia August 09, 2024 12: 35pm Hypomagnesemia August 09, 2024 12: 35pm Regional lymph node metastasis present [facility] 2024 12:35pm Small cell lung cancer, left upper lobe August 09, 2024 12:35pm Hypokalemia August 09, 2024 12: 35pm Small cell lung cancer, left upper lobe August 12, 2024 9:36am Chronic obstructive lung disease July [id number] 12:30pm MARTELL (obstructive sleep apnea) July 12:30pm Small cell lung cancer, left upper lobe August 13, 2024 12:30pm Anemia August 18, 2024 2:1 0pm Hypomagnesemia August 18, 2024 2:1 0pm Right upper limb pain August 18, 2024 2 :10pm Regional lymph node metastasis present M [facility] 2024 2:10pm Small cell lung cancer, left upper lobe August 18, 2024 2:10pm History of lipoma August 25, 2024 8:3 8am Regional lymph node metastasis present M [facility] 2024 2:33pm Small cell lung cancer, left upper lobe August 25, 2024 2:33pm Encounter for education August 30, 2024 3:23pm Regional lymph node metastasis present M [facility] 2024 3:23pm Small cell lung cancer, left upper lobe August 30, 2024 3:23pm Encounter for antineoplastic immunothera py September 08, 2024 7:37am Regional lymph node metastasis present A pril 2024 7:37am Small cell lung cancer, left upper lobe September 08, 2024 7:37am Encounter for antineoplastic immunothera py October 06, 2024 10:32am Regional lymph node metastasis present M 2024 10:32am Small cell lung cancer, left upper lobe October 06, 2024 10:32am Chief Complaint Admit Date 1 MONTH F/U POST RT July 12, 2024 9:44am 1WK LABS TOX CHECK July 13, 2024 9:37am 1WK LABS TOX CHECK July 20, 2024 9:45am 3 WKS - LABS - CARBO/ETOP July 26, 2024 7:32am TOX CHECK - LABS August 02, 2024 1:11 pm TOX CHECK - LABS August 09, 2024 12: 35pm LUNG CA August 10, 2024 10: 36am 1 month follow up-review MRI August 12, 2024 9:36am 4 M FU August 13, 2024 12: 30pm TOX CHECK - LABS August 18, 2024 2:1 0pm Malignant neoplasm of upper lobe, left b ronchus or August 23, 2024 1:48pm POSSIBLE LIPOMA ON ARM August 25, 2024 8:38am 3WKS LABS DERB? August 25, 2024 2:3 3pm CHEMO ED August 30, 2024 3:2 3pm NEW START - LABS - DURVA September 08, 2024 7:37am 4 WKS - LABS - DURVA October 06, 2024 10:32 am SCREENINIG October 15, 2024 2:11p m 4 WKS - LABS - DURVA November 03, 2024 11:0 4am 1 unit PRBC November 03, 2024 11:15 am Needs New Pap Machine November 04, 2024 10: 28am Reason for Visit Admit Date Small cell lung cancer, left upper lobe July 12, 2024 9:44am Anemia July 13, 2024 9:37am Drug induced neutropenia July 13, 2024 9:37am Regional lymph node metastasis present [facility] 2024 9:37am Small cell lung cancer, left upper lobe July 13, 2024 9:37am Regional lymph node metastasis present [facility] 2024 9:45am Small cell lung cancer, left upper lobe July 20, 2024 9:45am Hypokalemia July 20, 2024 9:45am Anemia July 26, 2024 7:32am Encounter for chemotherapy management [facility] 2024 7:32am Hypomagnesemia July 26, 2024 7:32am Regional lymph node metastasis present [facility] 2024 7:32am Small cell lung cancer, left upper lobe July 26, 2024 7:32am Hypokalemia July 26, 2024 7:32am Anemia August 02, 2024 1:11 pm Encounter for chemotherapy management [facility] 2024 1:11pm Hypomagnesemia August 02, 2024 1:11 pm Regional lymph node metastasis present M [facility] 2024 1:11pm Small cell lung cancer, left upper lobe August 02, 2024 1:11pm Hypokalemia August 02, 2024 1:11 pm Anemia August 09, 2024 12: 35pm Hypomagnesemia August 09, 2024 12: 35pm Regional lymph node metastasis present M [facility] 2024 12:35pm Small cell lung cancer, left upper lobe August 09, 2024 12:35pm Hypokalemia August 09, 2024 12: 35pm Small cell lung cancer, left upper lobe August 12, 2024 9:36am Chronic obstructive lung disease July [id number] 12:30pm MARTELL (obstructive sleep apnea) July 12:30pm Small cell lung cancer, left upper lobe August 13, 2024 12:30pm Anemia August 18, 2024 2:1 0pm Hypomagnesemia August 18, 2024 2:1 0pm Right upper limb pain August 18, 2024 2 :10pm Regional lymph node metastasis present M [facility] 2024 2:10pm Small cell lung cancer, left upper lobe August 18, 2024 2:10pm History of lipoma August 25, 2024 8:3 8am Regional lymph node metastasis present M [facility] 2024 2:33pm Small cell lung cancer, left upper lobe August 25, 2024 2:33pm Encounter for education August 30, 2024 3:23pm Regional lymph node metastasis present M arch 2024 3:23pm Small cell lung cancer, left upper lobe August 30, 2024 3:23pm Encounter for antineoplastic immunothera py September 08, 2024 7:37am Regional lymph node metastasis present A pril 2024 7:37am Small cell lung cancer, left upper lobe September 08, 2024 7:37am Encounter for antineoplastic immunothera py October 06, 2024 10:32am Regional lymph node metastasis present M ay 2024 10:32am Small cell lung cancer, left upper lobe October 06, 2024 10:32am Regional lymph node metastasis present J une 2024 11:04am Small cell lung cancer, left upper lobe November 03, 2024 11:04am Chief Complaint Admit Date LABS - TREATMENT July 06, 2024 7 :39am 1 MONTH F/U POST RT July 12, 2024 9:44am 1WK LABS TOX CHECK July 13, 2024 9:37am 1WK LABS TOX CHECK July 20, 2024 9:45am 3 WKS - LABS - CARBO/ETOP July 26, 2024 7:32am TOX CHECK - LABS August 02, 2024 1:11 pm TOX CHECK - LABS August 09, 2024 12: 35pm LUNG CA August 10, 2024 10: 36am 1 month follow up-review MRI August 12, 2024 9:36am 4 M FU August 13, 2024 12: 30pm TOX CHECK - LABS August 18, 2024 2:1 0pm Malignant neoplasm of upper lobe, left b ronchus or August 23, 2024 1:48pm POSSIBLE LIPOMA ON ARM August 25, 2024 8:38am 3WKS LABS DERB? August 25, 2024 2:3 3pm CHEMO ED August 30, 2024 3:2 3pm NEW START - LABS - DURVA September 08, 2024 7:37am 4 WKS - LABS - DURVA October 06, 2024 10:32 am SCREENINIG October 15, 2024 2:11p m 4 WKS - LABS - DURVA November 03, 2024 11:0 4am 1 unit PRBC November 03, 2024 11:15 am Reason for Visit Admit Date Encounter for chemotherapy management [facility] 2024 7:39am Regional lymph node metastasis present [facility] 2024 7:39am Small cell lung cancer, left upper lobe July 06, 2024 7:39am Small cell lung cancer, left upper lobe July 12, 2024 9:44am Anemia July 13, 2024 9:37am Drug induced neutropenia July 13, 2024 9:37am Regional lymph node metastasis present [facility] 2024 9:37am Small cell lung cancer, left upper lobe July 13, 2024 9:37am Regional lymph node metastasis present [facility] 2024 9:45am Small cell lung cancer, left upper lobe July 20, 2024 9:45am Hypokalemia July 20, 2024 9:45am Anemia July 26, 2024 7:32am Encounter for chemotherapy management [facility] 2024 7:32am Hypomagnesemia July 26, 2024 7:32am Regional lymph node metastasis present [facility] 2024 7:32am Small cell lung cancer, left upper lobe July 26, 2024 7:32am Hypokalemia July 26, 2024 7:32am Anemia August 02, 2024 1:11 pm Encounter for chemotherapy management [facility] 2024 1:11pm Hypomagnesemia August 02, 2024 1:11 pm Regional lymph node metastasis present [facility] 2024 1:11pm Small cell lung cancer, left upper lobe August 02, 2024 1:11pm Hypokalemia August 02, 2024 1:11 pm Anemia August 09, 2024 12: 35pm Hypomagnesemia August 09, 2024 12: 35pm Regional lymph node metastasis present [facility] 2024 12:35pm Small cell lung cancer, left upper lobe August 09, 2024 12:35pm Hypokalemia August 09, 2024 12: 35pm Small cell lung cancer, left upper lobe August 12, 2024 9:36am Chronic obstructive lung disease July [id number] 12:30pm MARTELL (obstructive sleep apnea) July 12:30pm Small cell lung cancer, left upper lobe August 13, 2024 12:30pm Anemia August 18, 2024 2:1 0pm Hypomagnesemia August 18, 2024 2:1 0pm Right upper limb pain August 18, 2024 2 :10pm Regional lymph node metastasis present M [facility] 2024 2:10pm Small cell lung cancer, left upper lobe August 18, 2024 2:10pm History of lipoma August 25, 2024 8:3 8am Regional lymph node metastasis present [facility] 2024 2:33pm Small cell lung cancer, left upper lobe August 25, 2024 2:33pm Encounter for education August 30, 2024 3:23pm Regional lymph node metastasis present [facility] 2024 3:23pm Small cell lung cancer, left upper lobe August 30, 2024 3:23pm Encounter for antineoplastic immunothera py September 08, 2024 7:37am Regional lymph node metastasis present A pril 2024 7:37am Small cell lung cancer, left upper lobe September 08, 2024 7:37am Encounter for antineoplastic immunothera py October 06, 2024 10:32am Regional lymph node metastasis present M ay 2024 10:32am Small cell lung cancer, left upper lobe October 06, 2024 10:32am Regional lymph node metastasis present J une 2024 11:04am Small cell lung cancer, left upper lobe November 03, 2024 11:04am Chief Complaint Admit Date 1WK LABS TOX CHECK July 20, 2024 9:45am 3 WKS - LABS - CARBO/ETOP July 26, 2024 7:32am TOX CHECK - LABS August 02, 2024 1:11 pm TOX CHECK - LABS August 09, 2024 12: 35pm LUNG CA August 10, 2024 10: 36am 1 month follow up-review MRI August 12, 2024 9:36am 4 M FU August 13, 2024 12: 30pm TOX CHECK - LABS August 18, 2024 2:1 0pm Malignant neoplasm of upper lobe, left b ronchus or August 23, 2024 1:48pm POSSIBLE LIPOMA ON ARM August 25, 2024 8:38am 3WKS LABS DERB? August 25, 2024 2:3 3pm CHEMO ED August 30, 2024 3:2 3pm NEW START - LABS - DURVA September 08, 2024 7:37am 4 WKS - LABS - DURVA October 06, 2024 10:32 am SCREENINIG October 15, 2024 2:11p m 4 WKS - LABS - DURVA November 03, 2024 11:0 4am 1 unit PRBC November 03, 2024 11:15 am Needs New Pap Machine November 04, 2024 10: 28am SCLC, MONITORING FOR BRAIN METS October 1:26pm 3 MONTH LUNG, REVIEW MRI November 16, 2024 1:03pm Reason for Visit Admit Date [facility] 9:45[facility] Small cell lung cancer, left upper lobe July 20, 2024 9:45am Hypokalemia July 20, 2024 9:45am Anemia July 26, 2024 7:32am Encounter for chemotherapy management Fe [facility] 2024 7:32am Hypomagnesemia July 26, 2024 7:32am Regional lymph node metastasis present F [facility] 2024 7:32am Small cell lung cancer, left upper lobe July 26, 2024 7:32am Hypokalemia July 26, 2024 7:32am Anemia August 02, 2024 1:11 pm Encounter for chemotherapy management [facility] 2024 1:11pm Hypomagnesemia August 02, 2024 1:11 pm Regional lymph node metastasis present M [facility] 2024 1:11pm Small cell lung cancer, left upper lobe August 02, 2024 1:11pm Hypokalemia August 02, 2024 1:11 pm Anemia August 09, 2024 12: 35pm Hypomagnesemia August 09, 2024 12: 35pm Regional lymph node metastasis present M [facility] 2024 12:35pm Small cell lung cancer, left upper lobe August 09, 2024 12:35pm Hypokalemia August 09, 2024 12: 35pm Small cell lung cancer, left upper lobe August 12, 2024 9:36am Chronic obstructive lung disease July [id number] 12:30pm MARTELL (obstructive sleep apnea) July 12:30pm Small cell lung cancer, left upper lobe August 13, 2024 12:30pm Anemia August 18, 2024 2:1 0pm Hypomagnesemia August 18, 2024 2:1 0pm Right upper limb pain August 18, 2024 2 :10pm Regional lymph node metastasis present M arch 2024 2:10pm Small cell lung cancer, left upper lobe August 18, 2024 2:10pm History of lipoma August 25, 2024 8:3 8am Regional lymph node metastasis present M [facility] 2024 2:33pm Small cell lung cancer, left upper lobe August 25, 2024 2:33pm Encounter for education August 30, 2024 3:23pm Regional lymph node metastasis present M [facility] 2024 3:23pm Small cell lung cancer, left upper lobe August 30, 2024 3:23pm Encounter for antineoplastic immunothera py September 08, 2024 7:37am Regional lymph node metastasis present A pril 2024 7:37am Small cell lung cancer, left upper lobe September 08, 2024 7:37am Encounter for antineoplastic immunothera py October 06, 2024 10:32am Regional lymph node metastasis present M 2024 10:32am Small cell lung cancer, left upper lobe October 06, 2024 10:32am Regional lymph node metastasis present J [facility] 2024 11:04am Small cell lung cancer, left upper lobe November 03, 2024 11:04am MARTELL (obstructive sleep apnea) November 04, 2024 10:28am Reason for Visit Admit Date Regional lymph node metastasis present F ebruary 2024 9:45am Small cell lung cancer, left upper lobe July 20, 2024 9:45am Hypokalemia July 20, 2024 9:45am Anemia July 26, 2024 7:32am Encounter for chemotherapy management Fe bruary 2024 7:32am Hypomagnesemia July 26, 2024 7:32am Regional lymph node metastasis present F ebruary 2024 7:32am Small cell lung cancer, left upper lobe July 26, 2024 7:32am Hypokalemia July 26, 2024 7:32am Anemia August 02, 2024 1:11 pm Encounter for chemotherapy management [facility] 2024 1:11pm Hypomagnesemia August 02, 2024 1:11 pm Regional lymph node metastasis present M [facility] 2024 1:11pm Small cell lung cancer, left upper lobe August 02, 2024 1:11pm Hypokalemia August 02, 2024 1:11 pm Anemia August 09, 2024 12: 35pm Hypomagnesemia August 09, 2024 12: 35pm Regional lymph node metastasis present M [facility] 2024 12:35pm Small cell lung cancer, left upper lobe August 09, 2024 12:35pm Hypokalemia August 09, 2024 12: 35pm Small cell lung cancer, left upper lobe August 12, 2024 9:36am Chronic obstructive lung disease July [id number] 12:30pm MARTELL (obstructive sleep apnea) July 12:30pm Small cell lung cancer, left upper lobe August 13, 2024 12:30pm Anemia August 18, 2024 2:1 0pm Hypomagnesemia August 18, 2024 2:1 0pm Right upper limb pain August 18, 2024 2 :10pm Regional lymph node metastasis present [facility] 2024 2:10pm Small cell lung cancer, left upper lobe August 18, 2024 2:10pm History of lipoma August 25, 2024 8:3 8am Regional lymph node metastasis present M [facility] 2024 2:33pm Small cell lung cancer, left upper lobe August 25, 2024 2:33pm Encounter for education August 30, 2024 3:23pm Regional lymph node metastasis present M [facility] 2024 3:23pm Small cell lung cancer, left upper lobe August 30, 2024 3:23pm Encounter for antineoplastic immunothera py September 08, 2024 7:37am Regional lymph node metastasis present A pril 2024 7:37am Small cell lung cancer, left upper lobe September 08, 2024 7:37am Encounter for antineoplastic immunothera py October 06, 2024 10:32am Regional lymph node metastasis present M ay 2024 10:32am Small cell lung cancer, left upper lobe October 06, 2024 10:32am Regional lymph node metastasis present J une 2024 11:04am Small cell lung cancer, left upper lobe November 03, 2024 11:04am MARTELL (obstructive sleep apnea) November 04, 2024 10:28am Small cell lung cancer, left upper lobe November 16, 2024 1:03pm Chief Complaint Admit Date TOX CHECK - LABS August 09, 2024 12: 35pm LUNG CA August 10, 2024 10: 36am 1 month follow up-review MRI August 12, 2024 9:36am 4 M FU August 13, 2024 12: 30pm TOX CHECK - LABS August 18, 2024 2:1 0pm Malignant neoplasm of upper lobe, left b ronchus or August 23, 2024 1:48pm POSSIBLE LIPOMA ON ARM August 25, 2024 8:38am 3WKS LABS DERB? August 25, 2024 2:3 3pm CHEMO ED August 30, 2024 3:2 3pm NEW START - LABS - DURVA September 08, 2024 7:37am 4 WKS - LABS - DURVA October 06, 2024 10:32 am SCREENINIG October 15, 2024 2:11p m 4 WKS - LABS - DURVA November 03, 2024 11:0 4am Needs New Pap Machine November 04, 2024 10: 28am SCLC, MONITORING FOR BRAIN METS October 1:26pm 3 MONTH LUNG, REVIEW MRI November 16, 2024 1:03pm 1 unit PRBC December 01, 2024 10:45 am 4 WKS - LABS - DURVA December 01, 2024 10:5 8am Reason for Visit Admit Date Anemia August 09, 2024 12: 35pm Hypomagnesemia August 09, 2024 12: 35pm Regional lymph node metastasis present M arch 2024 12:35pm Small cell lung cancer, left upper lobe August 09, 2024 12:35pm Hypokalemia August 09, 2024 12: 35pm Small cell lung cancer, left upper lobe August 12, 2024 9:36am Chronic obstructive lung disease July [id number] 12:30pm MARTELL (obstructive sleep apnea) July 12:30pm Small cell lung cancer, left upper lobe August 13, 2024 12:30pm Anemia August 18, 2024 2:1 0pm Hypomagnesemia August 18, 2024 2:1 0pm Right upper limb pain August 18, 2024 2 :10pm Regional lymph node metastasis present M arch 2024 2:10pm Small cell lung cancer, left upper lobe August 18, 2024 2:10pm History of lipoma August 25, 2024 8:3 8am Regional lymph node metastasis present M arch 2024 2:33pm Small cell lung cancer, left upper lobe August 25, 2024 2:33pm Encounter for education August 30, 2024 3:23pm Regional lymph node metastasis present M arch 2024 3:23pm Small cell lung cancer, left upper lobe August 30, 2024 3:23pm Encounter for antineoplastic immunothera py September 08, 2024 7:37am Regional lymph node metastasis present A pril 2024 7:37am Small cell lung cancer, left upper lobe September 08, 2024 7:37am Encounter for antineoplastic immunothera py October 06, 2024 10:32am Regional lymph node metastasis present M ay 2024 10:32am Small cell lung cancer, left upper lobe October 06, 2024 10:32am Regional lymph node metastasis present J une 2024 11:04am Small cell lung cancer, left upper lobe November 03, 2024 11:04am MARTELL (obstructive sleep apnea) November 04, 2024 10:28am Small cell lung cancer, left upper lobe November 16, 2024 1:03pm Regional lymph node metastasis present J chris 2024 10:58am Small cell lung cancer, left upper lobe December 01, 2024 10:58am Chief Complaint Admit Date NEW START - LABS - DURVA September 08, 2024 7:37am 4 WKS - LABS - DURVA October 06, 2024 10:32 am SCREENINIG October 15, 2024 2:11p m 4 WKS - LABS - DURVA November 03, 2024 11:0 4am Needs New Pap Machine November 04, 2024 10: 28am SCLC, MONITORING FOR BRAIN METS October 1:26pm 3 MONTH LUNG, REVIEW MRI November 16, 2024 1:03pm 4 WKS - LABS - DURVA December 01, 2024 10:5 8am LUNG CANCER December 24, 2024 12:3 3pm 4 WKS - LABS - DURVA December 29, 2024 10: 27am 1 unit PRBC December 29, 2024 10:4 5am Reason for Visit Admit Date Encounter for antineoplastic immunothera py September 08, 2024 7:37am Regional lymph node metastasis present A pril 2024 7:37am Small cell lung cancer, left upper lobe September 08, 2024 7:37am Encounter for antineoplastic immunothera py October 06, 2024 10:32am Regional lymph node metastasis present M ay 2024 10:32am Small cell lung cancer, left upper lobe October 06, 2024 10:32am Regional lymph node metastasis present J une 2024 11:04am Small cell lung cancer, left upper lobe November 03, 2024 11:04am MARTELL (obstructive sleep apnea) November 04, 2024 10:28am Small cell lung cancer, left upper lobe November 16, 2024 1:03pm Regional lymph node metastasis present J chris 2024 10:58am Small cell lung cancer, left upper lobe December 01, 2024 10:58am Reason for Visit Admit Date Encounter for antineoplastic immunothera py September 08, 2024 7:37am Regional lymph node metastasis present A pril 2024 7:37am Small cell lung cancer, left upper lobe September 08, 2024 7:37am Encounter for antineoplastic immunothera py October 06, 2024 10:32am Regional lymph node metastasis present M ay 2024 10:32am Small cell lung cancer, left upper lobe October 06, 2024 10:32am Regional lymph node metastasis present J une 2024 11:04am Small cell lung cancer, left upper lobe November 03, 2024 11:04am MARTELL (obstructive sleep apnea) November 04, 2024 10:28am Small cell lung cancer, left upper lobe November 16, 2024 1:03pm Regional lymph node metastasis present J chris 2024 10:58am Small cell lung cancer, left upper lobe December 01, 2024 10:58am Regional lymph node metastasis present J chris 2024 10:27am Small cell lung cancer, left upper lobe December 29, 2024 10:27am Chief Complaint Admit Date 4 WKS - LABS - DURVA October 06, 2024 10:32 am SCREENINIG October 15, 2024 2:11p m 4 WKS - LABS - DURVA November 03, 2024 11:0 4am Needs New Pap Machine November 04, 2024 10: 28am SCLC, MONITORING FOR BRAIN METS October 1:26pm 3 MONTH LUNG, REVIEW MRI November 16, 2024 1:03pm 4 WKS - LABS - DURVA December 01, 2024 10:5 8am LUNG CANCER December 24, 2024 12:3 3pm 4 WKS - LABS - DURVA December 29, 2024 10: 27am 4 WKS - LABS - DURVA- REVIEW SCANS? Augu st 2024 11:10am 1 unit PRBC January 26, 2025 11 :15am Reason for Visit Admit Date Encounter for antineoplastic immunothera py October 06, 2024 10:32am Regional lymph node metastasis present M ay 2024 10:32am Small cell lung cancer, left upper lobe October 06, 2024 10:32am Regional lymph node metastasis present J [facility] 2024 11:04am Small cell lung cancer, left upper lobe November 03, 2024 11:04am MARTELL (obstructive sleep apnea) November 04, 2024 10:28am Small cell lung cancer, left upper lobe November 16, 2024 1:03pm Regional lymph node metastasis present J [facility] 2024 10:58am Small cell lung cancer, left upper lobe December 01, 2024 10:58am Regional lymph node metastasis present J [facility] 2024 10:27am Small cell lung cancer, left upper lobe December 29, 2024 10:27am Regional lymph node metastasis present A ugust 2024 11:10am Small cell lung cancer, left upper lobe January 26, 2025 11:10am Chief Complaint Admit Date 4 WKS - LABS - DURVA October 06, 2024 10:32 am SCREENINIG October 15, 2024 2:11p m 4 WKS - LABS - DURVA November 03, 2024 11:0 4am Needs New Pap Machine November 04, 2024 10: 28am SCLC, MONITORING FOR BRAIN METS October 1:26pm 3 MONTH LUNG, REVIEW MRI November 16, 2024 1:03pm 4 WKS - LABS - DURVA December 01, 2024 10:5 8am LUNG CANCER December 24, 2024 12:3 3pm 4 WKS - LABS - DURVA December 29, 2024 10: 27am 4 WKS - LABS - DURVA- REVIEW SCANS? Augu st 2024 11:10am 1 unit PRBC January 26, 2025 11 :15am BLOOD IN STOOL February 01, 2025 1:29pm Reason for Visit Admit Date Encounter for antineoplastic immunothera py October 06, 2024 10:32am Regional lymph node metastasis present M ay 2024 10:32am Small cell lung cancer, left upper lobe October 06, 2024 10:32am Regional lymph node metastasis present J [facility] 2024 11:04am Small cell lung cancer, left upper lobe November 03, 2024 11:04am MARTELL (obstructive sleep apnea) November 04, 2024 10:28am Small cell lung cancer, left upper lobe November 16, 2024 1:03pm Regional lymph node metastasis present J [facility] 2024 10:58am Small cell lung cancer, left upper lobe December 01, 2024 10:58am Regional lymph node metastasis present J chris 2024 10:27am Small cell lung cancer, left upper lobe December 29, 2024 10:27am Regional lymph node metastasis present A ugust 2024 11:10am Small cell lung cancer, left upper lobe January 26, 2025 11:10am Blood in stool February 01, 2025 1:29pm Chief Complaint Admit Date 4 WKS - LABS - DURVA November 03, 2024 11:0 4am Needs New Pap Machine November 04, 2024 10: 28am SCLC, MONITORING FOR BRAIN METS October 1:26pm 3 MONTH LUNG, REVIEW MRI November 16, 2024 1:03pm 4 WKS - LABS - DURVA December 01, 2024 10:5 8am LUNG CANCER December 24, 2024 12:3 3pm 4 WKS - LABS - DURVA December 29, 2024 10: 27am 4 WKS - LABS - DURVA- REVIEW SCANS? Augu st 2024 11:10am 1 unit PRBC January 26, 2025 11 :15am BLOOD IN STOOL February 01, 2025 1:29pm SMALL CELL LUNG CANCER, LEFT UPPER LOBE February 10, 2025 12:22pm 3 MONTH LUNG, REVIEW MRI February 15, 2025 1:16pm Reason for Visit Admit Date Regional lymph node metastasis present J une 2024 11:04am Small cell lung cancer, left upper lobe November 03, 2024 11:04am MARTELL (obstructive sleep apnea) November 04, 2024 10:28am Small cell lung cancer, left upper lobe November 16, 2024 1:03pm Regional lymph node metastasis present J chris 2024 10:58am Small cell lung cancer, left upper lobe December 01, 2024 10:58am Regional lymph node metastasis present J chris 2024 10:27am Small cell lung cancer, left upper lobe December 29, 2024 10:27am Regional lymph node metastasis present A ugust 2024 11:10am Small cell lung cancer, left upper lobe January 26, 2025 11:10am Blood in stool February 01, 2025 1:29pm Small cell lung cancer, left upper lobe February 15, 2025 1:16pm Additional Source Comments Source Comments (unrecognize d section and content) In the event this informatio n is protected by the Federal Confidentiality of Alcohol and Drug Abuse Patient Records regulations: The Federal rules restrict any use of the information to criminally investigate or prosecute any alcohol or drug abuse patient.[facility] the event this information is protected by the Federal Confidentiality of Alcohol and Drug Abuse Patient Records regulations: The Federal rules restrict any use of the information to criminally investigate or prosecute any alcohol or drug abuse patient.[facility] the event this information is protected by the Federal Confidentiality of Alcohol and Drug Abuse Patient Records regulations: The Federal rules restrict any use of the information to criminally investigate or prosecute any alcohol or drug abuse patient.[facility] the event this information is protected by the Federal Confidentiality of Alcohol and Drug Abuse Patient Records regulations: The Federal rules restrict any use of the information to criminally investigate or prosecute any alcohol or drug abuse patient.[facility] Care Teams (unrecognized sec tion and content) Fats And Oils Loader Relationship Specialty Start Date End Date Fco Mccarthy MD PCP - General Family Practice 02/21/16 Fats And Oils Loader Relationship Specialty Start Date End Date Fco Mccarthy MD PCP - General Family Practice 02/21/16 Fats And Oils Loader Relationship Specialty Start Date End Date Fco Mccarthy MD PCP - General Family Practice 02/21/16 Fats And Oils Loader Relationship Specialty Start Date End Date Fco Mccarthy MD PCP - General Family Practice 02/21/16 Team Status: Active Member Role Status Dates Dr. Fco Mccarthy MD Family Provider Active Oscar Mott NP-C Primary Care Provider Active Team Status: Inactive Member Role Status Dates Dr. Fco Mccarthy MD Primary Care Provider, Referring Provider Active Angela Linton HYDROELECTRIC SYSTEMS TECHNICIAN, HYDROELECTRIC SYSTEMS TECHNICIAN-C Attending Provider Active Team Status: Inactive Member Role Status Dates Oscar Mott HYDROELECTRIC SYSTEMS TECHNICIAN-C Primary Care Provide r, Attending Provider, Referring Provider Active Team Status: Inactive Member Role Status Dates DAVID MOORE Primary Care Provide r, Attending Provider, Referring Provider Active Team Status: Inactive Member Role Status Dates Dr. Fco Mccarthy MD Referring Provider Active Dr. Wood Gillespie MD Attending Provider Active Oscar Mott HYDROELECTRIC SYSTEMS TECHNICIAN-C Primary Care Provider Active Team Status: Inactive Member Role Status Dates Oscar Mott HYDROELECTRIC SYSTEMS TECHNICIAN-C Primary Care Provider, Referring P rovider Active Angela Linton HYDROELECTRIC SYSTEMS TECHNICIAN, HYDROELECTRIC SYSTEMS TECHNICIAN-C Attending Provider Active Team Status: Inactive Member Role Status Dates Oscar Mott , HYDROELECTRIC SYSTEMS TECHNICIAN-C Primary Care Provider, Attending P rovider Active F[employer] And Oils Loader Relationship Specialty Start Date End Date David, Oscar, WO[employer]ILL SUPER[employer]OR [address] [place] [address] PCP - General Family Medicine 04/16/24 Fats And Oils Loader Relationship Specialty Start Date End Date DavidOscar amin, WO[employer] M[employer] SUPER[employer]OR [address] [place], [place] [id number] PCP - General Family Medicine 04/16/24 Fats And Oils Loader Relationship Specialty Start Date End Date David, Oscar, WO[employer] M[employer] SUPER[employer]OR [address] [place], [place] [id number] PCP - General Family Medicine 04/16/24 Fats And Oils Loader Relationship Specialty Start Date End Date David, Oscar, WO[employer] M[employer] SUPER[employer]OR [address] [place], [place] [id number] PCP - General Family Medicine 04/16/24 Fats And Oils Loader Relationship Specialty Start Date End Date Oscar Mott FNP [address] [place] [address] PCP - General Family Medicine 04/16/24 Fats And Oils Loader Relationship Specialty Start Date End Date Oscar Mott FNP [address] [place] [address] PCP - General Family Medicine 04/16/24 Fats And Oils Loader Relationship Specialty Start Date End Date Oscar Mott FNP [address] [place] [address] PCP - General Family Medicine 04/16/24 Fats And Oils Loader Relationship Specialty Start Date End Date Oscar Mott FNP [address] [place] [address] PCP - General Family Medicine 04/16/24 Fats And Oils Loader Relationship Specialty Start Date End Date Oscar Mott FNP [address] [place] [address] PCP - General Family Medicine 04/16/24 Fats And Oils Loader Relationship Specialty Start Date End Date Oscar Mott [employer] M[employer] SUPER[employer] [address] [place] [address] PCP - General Family Medicine 04/16/24 Team Status: Active Member Role Status Dates Oscar Mott NP-Jose Primary Care Provider Active Team Status: Inactive Member Role Status Dates Oscar Mott NP-C Primary Care Provider Active Start: May 04, 2024 End: May 04, 2024 Oscar David , HYDROELECTRIC SYSTEMS TECHNICIAN-C Referring Provider Active St art: May 04, 2024 End: May 04, 2024 Angela Linton HYDROELECTRIC SYSTEMS TECHNICIAN, HYDROELECTRIC SYSTEMS TECHNICIAN-C Attending Provider Active Start: May 04, 2024 End: May 04, 2024 Team Status: Inactive Member Role Status Dates Oscar David , HYDROELECTRIC SYSTEMS TECHNICIAN-C Primary Care Provider Active Start: May 05, 2024 End: May 05, 2024 Dr. Maxi Merlos MD Attending Provider Active Start: May 05, 2024 End: May 05, 2024 Angela Linton HYDROELECTRIC SYSTEMS TECHNICIAN, HYDROELECTRIC SYSTEMS TECHNICIAN-C Referring Provider Active Start: May 05, 2024 End: May 05, 2024 Team Status: Inactive Member Role Status Dates Oscar David , HYDROELECTRIC SYSTEMS TECHNICIAN-C Primary Care Provider Active Start: May 07, 2024 End: May 07, 2024 Oscar David , HYDROELECTRIC SYSTEMS TECHNICIAN-C Referring Provider Active St art: May 07, 2024 End: May 07, 2024 Dr. Nicola Prabhakar MD Attending Provider Active Start: May 07, 2024 End: May 07, 2024 Team Status: Inactive Member Role Status Dates Oscar Mott , HYDROELECTRIC SYSTEMS TECHNICIAN-C Primary Care Provider Active Start: May 10, 2024 End: May 10, 2024 Angela Linton HYDROELECTRIC SYSTEMS TECHNICIAN, HYDROELECTRIC SYSTEMS TECHNICIAN-C Attending Provider Active Start: May 10, 2024 End: May 10, 2024 Angela Linton HYDROELECTRIC SYSTEMS TECHNICIAN, HYDROELECTRIC SYSTEMS TECHNICIAN-C Referring Provider Active Start: May 10, 2024 End: May 10, 2024 Team Status: Inactive Member Role Status Dates Oscardavy Mott , HYDROELECTRIC SYSTEMS TECHNICIAN-C Primary Care Provider Active Start: May 11, 2024 End: May 11, 2024 Oscar Mott , HYDROELECTRIC SYSTEMS TECHNICIAN-C Referring Provider Active St art: May 11, 2024 End: May 11, 2024 Dr. Nicolas Barclay DO Attending Provider Active Start: May 11, 2024 End: May 11, 2024 Team Status: Active Member Role Status Dates Oscar Mott , HYDROELECTRIC SYSTEMS TECHNICIAN-C Primary Care Provider Active Start: May 12, 2024 Dr. Nicolas Barclay DO Attending Provider Active Start: May 12, 2024 Dr. Nicolas Barclay DO Referring Provider Active Start: May 12, 2024 Team Status: Inactive Member Role Status Dates Oscar Mott , HYDROELECTRIC SYSTEMS TECHNICIAN-C Primary Care Provider Active Start: May 13, 2024 End: May 13, 2024 Dr. Nicola Prabhakar MD Attending Provider Active Start: May 13, 2024 End: May 13, 2024 Dr. Nicola Prabhakar MD Referring Provider Active Start: May 13, 2024 End: May 13, 2024 Team Status: Active Member Role Status Dates Oscar Mott HYDROELECTRIC SYSTEMS TECHNICIAN-C Primary Care Provider Active Start: May 13, 2024 Dr. Nicola Prabhakar MD Attending Provider Active Start: May 13, 2024 Dr. Nicola Prabhakar MD Referring Provider Active Start: May 13, 2024 Dr. Nicola Prabhakar MD Other Provider Active Start: May 13, 2024 Team Status: Active Member Role Status Dates Oscar Mott HYDROELECTRIC SYSTEMS TECHNICIAN-C Primary Care Provider Active Start: May 14, 2024 Dr. Nicolas Barclay DO Attending Provider Active Start: May 14, 2024 Dr. Nicolas Barclay DO Referring Provider Active Start: May 14, 2024 Team Status: Inactive Member Role Status Dates Oscardavy Mott HYDROELECTRIC SYSTEMS TECHNICIAN-C Primary Care Provider Active Start: May 17, 2024 End: May 17, 2024 Oscar Mott HYDROELECTRIC SYSTEMS TECHNICIAN-C Referring Provider Active St art: May 17, 2024 End: May 17, 2024 Leighann Arellano HYDROELECTRIC SYSTEMS TECHNICIAN, HYDROELECTRIC SYSTEMS TECHNICIAN-C Attending Provider Active Start: May 17, 2024 End: May 17, 2024 Team Status: Inactive Member Role Status Dates Oscar Mott , HYDROELECTRIC SYSTEMS TECHNICIAN-C Primary Care Provider Active Start: May 18, 2024 End: May 18, 2024 Dr. Nicolas Barclay DO Attending Provider Active Start: May 18, 2024 End: May 18, 2024 Dr. Nicolas Barclay DO Referring Provider Active Start: May 18, 2024 End: May 18, 2024 Team Status: Inactive Member Role Status Dates Oscar Mott HYDROELECTRIC SYSTEMS TECHNICIAN-C Primary Care Provider Active Start: May 21, 2024 End: May 21, 2024 Dr. Nicolas Barclay DO Attending Provider Active Start: May 21, 2024 End: May 21, 2024 Dr. Nicolas Barclay DO Referring Provider Active Start: May 21, 2024 End: May 21, 2024 Team Status: Inactive Member Role Status Dates Oscar Mott HYDROELECTRIC SYSTEMS TECHNICIAN-C Primary Care Provider Active Start: May 24, 2024 End: May 24, 2024 Dr. Nicolas Barclay DO Attending Provider Active Start: May 24, 2024 End: May 24, 2024 Dr. Nicolas Barclay DO Referring Provider Active Start: May 24, 2024 End: May 24, 2024 Team Status: Inactive Member Role Status Dates Oscar Mott NP-C Primary Care Provider Active Start: May 30, 2024 End: June 01, 2024 Dr. Jovani Puente DO Emergency Provider Active Start: May 30, 2024 End: June 01, 2024 Dr. Aj Barron DO Admit Provider Active Start: May 30, 2024 End: June 01, 2024 Dr. Aj Barron DO Attending Provider Active Start: May 30, 2024 End: June 01, 2024 Dr. Rodri Harrington MD Other Provider Active Start: May 30, 2024 End: June 01, 2024 Dr. Jacoby Diaz MD Other Provider Active Start: May 30, 2024 End: June 01, 2024 Dr. Jamie Ortiz MD Other Provider Active Start : May 30, 2024 End: June 01, 2024 Dr. Reilly Garzon MD Other Provider Active Star t: May 30, 2024 End: June 01, 2024 Dr. Maxi Merlos MD Other Provider Active Start: May 30, 2024 End: June 01, 2024 Dr. Rodri Parr MD Other Provider Active Star t: May 30, 2024 End: June 01, 2024 Dr. Jeff Medina MD Other Provider Active Start: D ec2023 End: June 01, 2024 Dr. Hemal Esteban MD Other Provider Active Sta rt: May 30, 2024 End: June 01, 2024 Dr. Nicolas Barclay DO Other Provider Active Sta rt: May 30, 2024 End: June 01, 2024 Leighann Arellano NP, HYDROELECTRIC SYSTEMS TECHNICIAN-C Other Provider Active St art: May 30, 2024 End: June 01, 2024 Team Status: Active Member Role Status Dates Oscar Mott NP-C Primary Care Provider Active Start: May 31, 2024 Dr. Jovani Puente DO Emergency Provider Active Start: May 31, 2024 Dr. Aj Barron DO Admit Provider Active Start: May 31, 2024 Dr. Aj Barron DO Referring Provider Active Start: May 31, 2024 Dr. Aj Barron DO Other Provider Active Start: May 31, 2024 Dr. Fitz Reyes DO Attending Provider Active S tart: May 31, 2024 Dr. Fitz Reyes , DO Other Provider Active Start : May 31, 2024 Dr. Rodri Harrington MD Other Provider Active Start: May 31, 2024 Dr. Jacoby Diaz MD Other Provider Active Start: May 31, 2024 Dr. Jamie Ortiz MD Other Provider Active Start : May 31, 2024 Dr. Reilly Garzon MD Other Provider Active Star t: May 31, 2024 Dr. Maxi Merlos MD Other Provider Active Start: May 31, 2024 Dr. Rodri Parr MD Other Provider Active Star t: May 31, 2024 Dr. Jeff Medina MD Other Provider Active Start: D ec2023 Dr. Hemal Esteban MD Other Provider Active Sta rt: May 31, 2024 Dr. Nicolas Barclay DO Other Provider Active Sta rt: May 31, 2024 Leighann Arellano NP, HYDROELECTRIC SYSTEMS TECHNICIAN-C Other Provider Active St art: May 31, 2024 Team Status: Active Member Role Status Dates Oscar Mott NP-C Primary Care Provider Active Start: May 31, 2024 Dr. Jovani Puente DO Emergency Provider Active Start: May 31, 2024 Dr. Aj Barron DO Admit Provider Active Start: May 31, 2024 Dr. Aj Barron DO Attending Provider Active Start: May 31, 2024 Dr. Aj Barron DO Other Provider Active Start: May 31, 2024 Dr. Rodri Harrington MD Other Provider Active Start: May 31, 2024 Dr. Fitz Reyes DO Other Provider Active Start : May 31, 2024 Dr. Jacoby Diaz MD Other Provider Active Start: May 31, 2024 Dr. Jamie Ortiz MD Other Provider Active Start : May 31, 2024 Dr. Reilly Garzon MD Other Provider Active Star t: May 31, 2024 Dr. Maxi Merlos MD Other Provider Active Start: May 31, 2024 Dr. Rodri Parr MD Other Provider Active Star t: May 31, 2024 Dr. Jeff Medina MD Other Provider Active Start: D ec2023 Dr. Hemal Esteban MD Other Provider Active Sta rt: May 31, 2024 Dr. Nicolas Barclay DO Other Provider Active Sta rt: May 31, 2024 Leighann Arellano HYDROELECTRIC SYSTEMS TECHNICIAN, HYDROELECTRIC SYSTEMS TECHNICIAN-C Other Provider Active St art: May 31, 2024 Team Status: Active Member Role Status Dates Oscar Mott NP-C Primary Care Provider Active Start: May 31, 2024 Dr. Jovani Puente DO Emergency Provider Active Start: May 31, 2024 Dr. Aj Barron DO Admit Provider Active Start: May 31, 2024 Dr. Aj Barron DO Referring Provider Active Start: May 31, 2024 Dr. Aj Barron DO Other Provider Active Start: May 31, 2024 Dr. Rodri Harrington MD Other Provider Active Start: May 31, 2024 Dr. Fitz Reyes DO Other Provider Active Start : May 31, 2024 Dr. Jacoby Diaz MD Other Provider Active Start: May 31, 2024 Dr. Jamie Ortiz MD Attending Provider Active S tart: May 31, 2024 Dr. Jamie Ortiz MD Other Provider Active Start : May 31, 2024 Dr. Reilly Garzon MD Other Provider Active Star t: May 31, 2024 Dr. Maxi Merlos MD Other Provider Active Start: May 31, 2024 Dr. Rodri Parr MD Other Provider Active Star t: May 31, 2024 Dr. Jeff Medina MD Other Provider Active Start: D ec2023 Dr. Hemal Esteban MD Other Provider Active Sta rt: May 31, 2024 Dr. Nicolas Barclay DO Other Provider Active Sta rt: May 31, 2024 Leighann Arellano NP, HYDROELECTRIC SYSTEMS TECHNICIAN-C Other Provider Active St art: May 31, 2024 Team Status: Active Member Role Status Dates Oscar Mott NP-C Primary Care Provider Active Start: June 01, 2024 Dr. Jovani Puente DO Emergency Provider Active Start: June 01, 2024 Dr. Aj Barron DO Admit Provider Active Start: June 01, 2024 Dr. Aj Barron DO Attending Provider Active Start: June 01, 2024 Dr. Aj Barron DO Other Provider Active Start: June 01, 2024 Dr. Rodri Harrington MD Other Provider Active Start: June 01, 2024 Dr. Jacoby Diaz MD Other Provider Active Start: June 01, 2024 Dr. Jamie Ortiz MD Other Provider Active Start : June 01, 2024 Dr. Reilly Garzon MD Other Provider Active Star t: June 01, 2024 Dr. Maxi Merlos MD Other Provider Active Start: June 01, 2024 Dr. Rodri Parr MD Other Provider Active Star t: June 01, 2024 Dr. Jeff Medina MD Other Provider Active Start: D ec2023 Dr. Hemal Esteabn MD Other Provider Active Sta rt: June 01, 2024 Dr. Nicolas Barclay DO Other Provider Active Sta rt: June 01, 2024 Leighann Arellano HYDROELECTRIC SYSTEMS TECHNICIAN, HYDROELECTRIC SYSTEMS TECHNICIAN-C Other Provider Active St art: June 01, 2024 Team Status: Inactive Member Role Status Dates ANNETTE Willis Primary Care Provider Active Start: June 03, 2024 End: June 03, 2024 Dr. Nicolas Barclay DO Attending Provider Active Start: June 03, 2024 End: June 03, 2024 Dr. Nicolas Barclay DO Referring Provider Active Start: June 03, 2024 End: June 03, 2024 Team Status: Inactive Member Role Status Dates DAYA WillisC Primary Care Provider Active Start: June 08, 2024 End: June 08, 2024 Dr. Nicolas Barclay DO Attending Provider Active Start: June 08, 2024 End: June 08, 2024 Dr. Nicolas Barclay DO Referring Provider Active Start: June 08, 2024 End: June 08, 2024 Team Status: Inactive Member Role Status Dates Oscar Mott NP-C Primary Care Provider Active Start: June 10, 2024 End: June 10, 2024 Dr. Nicolas Barclay DO Attending Provider Active Start: June 10, 2024 End: June 10, 2024 Dr. Nicolas Barclay DO Referring Provider Active Start: June 10, 2024 End: June 10, 2024 Team Status: Inactive Member Role Status Dates Oscar Mott , HYDROELECTRIC SYSTEMS TECHNICIAN-C Primary Care Provider Active Start: June 14, 2024 End: June 14, 2024 Oscar Mott , HYDROELECTRIC SYSTEMS TECHNICIAN-C Referring Provider Active St art: June 14, 2024 End: June 14, 2024 Leighann Arellano HYDROELECTRIC SYSTEMS TECHNICIAN, HYDROELECTRIC SYSTEMS TECHNICIAN-C Attending Provider Active Start: June 14, 2024 End: June 14, 2024 Team Status: Inactive Member Role Status Dates Oscar Mott , HYDROELECTRIC SYSTEMS TECHNICIAN-C Primary Care Provider Active Start: June 28, 2024 End: June 28, 2024 Oscar Mott , HYDROELECTRIC SYSTEMS TECHNICIAN-C Referring Provider Active St art: June 28, 2024 End: June 28, 2024 Leighann Arellano HYDROELECTRIC SYSTEMS TECHNICIAN, HYDROELECTRIC SYSTEMS TECHNICIAN-C Attending Provider Active Start: June 28, 2024 End: June 28, 2024 Team Status: Inactive Member Role Status Dates Oscar Mott , HYDROELECTRIC SYSTEMS TECHNICIAN-C Primary Care Provider Active Start: July 02, 2024 End: July 05, 2024 Tomas Swann MD Emergency Provider Active Star t: July 02, 2024 End: July 05, 2024 Dr. Jacoby Betancourt DO Admit Provider Active Start: July 02, 2024 End: July 05, 2024 Dr. Jacoby Betancourt DO Other Provider Active Start: July 02, 2024 End: July 05, 2024 Dr. Gareth Packer MD Attending Provider Active Start: July 02, 2024 End: July 05, 2024 Dr. Nicola Prabhakar MD Other Provider Active Start: July 02, 2024 End: July 05, 2024 Team Status: Active Member Role Status Dates Oscar Mott HYDROELECTRIC SYSTEMS TECHNICIAN-C Primary Care Provider Active Start: July 03, 2024 Tomas Swann MD Emergency Provider Active Star t: July 03, 2024 Dr. Jacoby Betancourt DO Admit Provider Active Start: July 03, 2024 Dr. Jacoby Betancourt DO Other Provider Active Start: July 03, 2024 Dr. Gareth Packer MD Attending Provider Active Start: July 03, 2024 Dr. Gareth Packer MD Other Provider Active Sta rt: July 03, 2024 Team Status: Active Member Role Status Dates Oscar Mott , HYDROELECTRIC SYSTEMS TECHNICIAN-C Primary Care Provider Active Start: July 04, 2024 Tomas Swann MD Emergency Provider Active Star t: July 04, 2024 Dr. Jacoby Betancourt DO Admit Provider Active Start: July 04, 2024 Dr. Jacoby Betancourt DO Other Provider Active Start: July 04, 2024 Dr. Gareth Packer MD Attending Provider Active Start: July 04, 2024 Dr. Gareth Packer MD Other Provider Active Sta rt: July 04, 2024 Dr. Nicola Prabhakar MD Other Provider Active Start: July 04, 2024 Team Status: Active Member Role Status Dates Oscar Mott HYDROELECTRIC SYSTEMS TECHNICIAN-C Primary Care Provider Active Start: July 04, 2024 Tomas Swann MD Emergency Provider Active Star t: July 04, 2024 Dr. Jacoby Betancourt DO Admit Provider Active Start: July 04, 2024 Dr. Jacoby Betancourt DO Other Provider Active Start: July 04, 2024 Dr. Gareth Packer MD Referring Provider Active Start: July 04, 2024 Dr. Gareth Packer MD Other Provider Active Sta rt: July 04, 2024 Dr. Nicola Prabhakar MD Attending Provider Active Start: July 04, 2024 Dr. Nicola Prabhakar MD Other Provider Active Start: July 04, 2024 Team Status: Active Member Role Status Dates Oscar Mott NP-C Primary Care Provider Active Start: July 05, 2024 Tomas Swann MD Emergency Provider Active Star t: July 05, 2024 Dr. Jacoby Betancourt DO Admit Provider Active Start: July 05, 2024 Dr. Jacoby Betancourt DO Other Provider Active Start: July 05, 2024 Dr. Gareth Packer MD Other Provider Active Sta rt: July 05, 2024 Dr. Nicola Prabhakar MD Attending Provider Active Start: July 05, 2024 Dr. Nicola Prabhakar MD Other Provider Active Start: July 05, 2024 Team Status: Active Member Role Status Dates Oscar Mott NP-C Primary Care Provider Active Start: July 05, 2024 Tomas Swann MD Emergency Provider Active Star t: July 05, 2024 Dr. Jacoby Betancourt DO Admit Provider Active Start: July 05, 2024 Dr. Jacoby Betancourt DO Other Provider Active Start: July 05, 2024 Dr. Gareth Packer MD Attending Provider Active Start: July 05, 2024 Dr. Gareth Packer MD Other Provider Active Sta rt: July 05, 2024 Dr. Nicola Prabhakar MD Other Provider Active Start: July 05, 2024 Team Status: Inactive Member Role Status Dates Oscar David , HYDROELECTRIC SYSTEMS TECHNICIAN-C Primary Care Provider Active Start: July 06, 2024 End: July 06, 2024 Oscar David , HYDROELECTRIC SYSTEMS TECHNICIAN-C Referring Provider Active St art: July 06, 2024 End: July 06, 2024 Leighann Arellano HYDROELECTRIC SYSTEMS TECHNICIAN, HYDROELECTRIC SYSTEMS TECHNICIAN-C Attending Provider Active Start: July 06, 2024 End: July 06, 2024 Team Status: Inactive Member Role Status Dates Oscar David , HYDROELECTRIC SYSTEMS TECHNICIAN-C Primary Care Provider Active Start: July 12, 2024 End: July 12, 2024 Oscar David , HYDROELECTRIC SYSTEMS TECHNICIAN-C Referring Provider Active St art: July 12, 2024 End: July 12, 2024 Dr. Nicolas Barclay DO Attending Provider Active Start: July 12, 2024 End: July 12, 2024 Team Status: Inactive Member Role Status Dates Oscar David , HYDROELECTRIC SYSTEMS TECHNICIAN-C Primary Care Provider Active Start: July 13, 2024 End: July 13, 2024 Oscar David , HYDROELECTRIC SYSTEMS TECHNICIAN-C Referring Provider Active St art: July 13, 2024 End: July 13, 2024 Leighann Arellano HYDROELECTRIC SYSTEMS TECHNICIAN, HYDROELECTRIC SYSTEMS TECHNICIAN-C Attending Provider Active Start: July 13, 2024 End: July 13, 2024 Team Status: Inactive Member Role Status Dates Oscar Advid , HYDROELECTRIC SYSTEMS TECHNICIAN-C Primary Care Provider Active Start: July 20, 2024 End: July 20, 2024 Oscardavy Mott , HYDROELECTRIC SYSTEMS TECHNICIAN-C Referring Provider Active St art: July 20, 2024 End: July 20, 2024 Dr. Maxi Merlos MD Attending Provider Active Start: July 20, 2024 End: July 20, 2024 Team Status: Inactive Member Role Status Dates Oscar David , HYDROELECTRIC SYSTEMS TECHNICIAN-C Primary Care Provider Active Start: July 26, 2024 End: July 26, 2024 Oscar David , HYDROELECTRIC SYSTEMS TECHNICIAN-C Referring Provider Active St art: July 26, 2024 End: July 26, 2024 Leighann Arellano HYDROELECTRIC SYSTEMS TECHNICIAN, HYDROELECTRIC SYSTEMS TECHNICIAN-C Attending Provider Active Start: July 26, 2024 End: July 26, 2024 Team Status: Inactive Member Role Status Dates Oscar Mott , HYDROELECTRIC SYSTEMS TECHNICIAN-C Primary Care Provider Active Start: August 02, 2024 End: August 02, 2024 Oscar Mott HYDROELECTRIC SYSTEMS TECHNICIAN-C Referring Provider Active St art: August 02, 2024 End: August 02, 2024 Leighann Arellano HYDROELECTRIC SYSTEMS TECHNICIAN, HYDROELECTRIC SYSTEMS TECHNICIAN-C Attending Provider Active Start: August 02, 2024 End: August 02, 2024 Team Status: Inactive Member Role Status Dates Oscar Mott HYDROELECTRIC SYSTEMS TECHNICIAN-C Primary Care Provider Active Start: August 09, 2024 End: August 09, 2024 Oscar Mott , HYDROELECTRIC SYSTEMS TECHNICIAN-C Referring Provider Active St art: August 09, 2024 End: August 09, 2024 Leighann Arellano HYDROELECTRIC SYSTEMS TECHNICIAN, HYDROELECTRIC SYSTEMS TECHNICIAN-C Attending Provider Active Start: August 09, 2024 End: August 09, 2024 Team Status: Inactive Member Role Status Dates Oscar Mott , HYDROELECTRIC SYSTEMS TECHNICIAN-C Primary Care Provider Active Start: August 10, 2024 End: August 10, 2024 Dr. Nicolas Barclay DO Attending Provider Active Start: August 10, 2024 End: August 10, 2024 Dr. Nicolas Barclay DO Referring Provider Active Start: August 10, 2024 End: August 10, 2024 Team Status: Inactive Member Role Status Dates Oscar Mott , HYDROELECTRIC SYSTEMS TECHNICIAN-C Primary Care Provider Active Start: August 12, 2024 End: August 12, 2024 Oscar Mott , HYDROELECTRIC SYSTEMS TECHNICIAN-C Referring Provider Active St art: August 12, 2024 End: August 12, 2024 Dr. Nicolas Barclay DO Attending Provider Active Start: August 12, 2024 End: August 12, 2024 Team Status: Inactive Member Role Status Dates Oscar Mott , HYDROELECTRIC SYSTEMS TECHNICIAN-C Primary Care Provider Active Start: August 13, 2024 End: August 13, 2024 Oscar Mott , HYDROELECTRIC SYSTEMS TECHNICIAN-C Referring Provider Active St art: August 13, 2024 End: August 13, 2024 Angela Linton HYDROELECTRIC SYSTEMS TECHNICIAN, HYDROELECTRIC SYSTEMS TECHNICIAN-C Attending Provider Active Start: August 13, 2024 End: August 13, 2024 Team Status: Inactive Member Role Status Dates Oscar Mott , HYDROELECTRIC SYSTEMS TECHNICIAN-C Primary Care Provider Active Start: August 18, 2024 End: August 18, 2024 Oscar Mott , HYDROELECTRIC SYSTEMS TECHNICIAN-C Referring Provider Active St art: August 18, 2024 End: August 18, 2024 Leighann Arellano HYDROELECTRIC SYSTEMS TECHNICIAN, HYDROELECTRIC SYSTEMS TECHNICIAN-C Attending Provider Active Start: August 18, 2024 End: August 18, 2024 Team Status: Active Member Role Status Dates Oscar Mott HYDROELECTRIC SYSTEMS TECHNICIAN-C Primary Care Provider Active Start: August 18, 2024 Dr. Maxi Merlos MD Referring Provider Active Start: August 18, 2024 Dr. Nicolas Barclay DO Attending Provider Active Start: August 18, 2024 Team Status: Inactive Member Role Status Dates Oscar Mott , HYDROELECTRIC SYSTEMS TECHNICIAN-C Primary Care Provider Active Start: August 23, 2024 End: August 23, 2024 Leighann Arellano HYDROELECTRIC SYSTEMS TECHNICIAN, HYDROELECTRIC SYSTEMS TECHNICIAN-C Attending Provider Active Start: August 23, 2024 End: August 23, 2024 Leighannrosa Arellano HYDROELECTRIC SYSTEMS TECHNICIAN, HYDROELECTRIC SYSTEMS TECHNICIAN-C Referring Provider Active Start: August 23, 2024 End: August 23, 2024 Team Status: Inactive Member Role Status Dates Oscardavy Mott , HYDROELECTRIC SYSTEMS TECHNICIAN-C Primary Care Provider Active Start: August 25, 2024 End: August 25, 2024 Oscar Mott , HYDROELECTRIC SYSTEMS TECHNICIAN-C Referring Provider Active St art: August 25, 2024 End: August 25, 2024 Dr. Nicola Prabhakar MD Attending Provider Active Start: August 25, 2024 End: August 25, 2024 Team Status: Inactive Member Role Status Dates Oscar Mott , HYDROELECTRIC SYSTEMS TECHNICIAN-C Primary Care Provider Active Start: August 25, 2024 End: August 25, 2024 Oscar Mott , HYDROELECTRIC SYSTEMS TECHNICIAN-C Referring Provider Active St art: August 25, 2024 End: August 25, 2024 Dr. Maxi Merlos MD Attending Provider Active Start: August 25, 2024 End: August 25, 2024 Team Status: Inactive Member Role Status Dates Oscar Mott , HYDROELECTRIC SYSTEMS TECHNICIAN-C Primary Care Provider Active Start: August 30, 2024 End: August 30, 2024 Oscar Mott HYDROELECTRIC SYSTEMS TECHNICIAN-C Referring Provider Active St art: August 30, 2024 End: August 30, 2024 Leighann Arellano HYDROELECTRIC SYSTEMS TECHNICIAN, HYDROELECTRIC SYSTEMS TECHNICIAN-C Attending Provider Active Start: August 30, 2024 End: August 30, 2024 Team Status: Inactive Member Role Status Dates Oscar Mott HYDROELECTRIC SYSTEMS TECHNICIAN-C Primary Care Provider Active Start: September 08, 2024 End: September 08, 2024 Oscar Mott , HYDROELECTRIC SYSTEMS TECHNICIAN-C Referring Provider Active St art: September 08, 2024 End: September 08, 2024 Leighann Arellano HYDROELECTRIC SYSTEMS TECHNICIAN, HYDROELECTRIC SYSTEMS TECHNICIAN-C Attending Provider Active Start: September 08, 2024 End: September 08, 2024 Team Status: Inactive Member Role Status Dates Oscar Mott , HYDROELECTRIC SYSTEMS TECHNICIAN-C Primary Care Provider Active Start: October 06, 2024 End: October 06, 2024 Oscar Mott , HYDROELECTRIC SYSTEMS TECHNICIAN-C Referring Provider Active St art: October 06, 2024 End: October 06, 2024 Leighann Arellano HYDROELECTRIC SYSTEMS TECHNICIAN, HYDROELECTRIC SYSTEMS TECHNICIAN-C Attending Provider Active Start: October 06, 2024 End: October 06, 2024 Team Status: Active Member Role Status Dates Oscar Mott , HYDROELECTRIC SYSTEMS TECHNICIAN-C Primary Care Provider Active Start: October 06, 2024 Dr. Maxi Merlos MD Referring Provider Active Start: October 06, 2024 Dr. Nicolas Barclay DO Attending Provider Active Start: October 06, 2024 Team Status: Inactive Member Role Status Dates Oscar Mott , HYDROELECTRIC SYSTEMS TECHNICIAN-C Primary Care Provider Active Start: October 15, 2024 End: October 15, 2024 Oscar Mott , HYDROELECTRIC SYSTEMS TECHNICIAN-C Attending Provider Active St art: October 15, 2024 End: October 15, 2024 Oscar Mott , HYDROELECTRIC SYSTEMS TECHNICIAN-C Referring Provider Active St art: October 15, 2024 End: October 15, 2024 Team Status: Inactive Member Role Status Dates Oscardavy Mott , HYDROELECTRIC SYSTEMS TECHNICIAN-C Primary Care Provider Active Start: November 03, 2024 End: November 03, 2024 Oscar Mott , HYDROELECTRIC SYSTEMS TECHNICIAN-C Referring Provider Active St art: November 03, 2024 End: November 03, 2024 Dr. Maxi Merlos MD Attending Provider Active Start: November 03, 2024 End: November 03, 2024 Team Status: Active Member Role Status Dates Oscar Mott , HYDROELECTRIC SYSTEMS TECHNICIAN-C Primary Care Provider Active Start: November 03, 2024 Dr. Maxi Merlos MD Referring Provider Active Start: November 03, 2024 Dr. Nicolas Barclay DO Attending Provider Active Start: November 03, 2024 Team Status: Inactive Member Role Status Dates Oscar Mott , HYDROELECTRIC SYSTEMS TECHNICIAN-C Primary Care Provider Active Start: November 04, 2024 End: November 04, 2024 Oscar Mott , HYDROELECTRIC SYSTEMS TECHNICIAN-C Referring Provider Active St art: November 04, 2024 End: November 04, 2024 Angela Linton HYDROELECTRIC SYSTEMS TECHNICIAN, HYDROELECTRIC SYSTEMS TECHNICIAN-C Attending Provider Active Start: November 04, 2024 End: November 04, 2024 Team Status: Active Member Role Status Dates Oscar Mott , HYDROELECTRIC SYSTEMS TECHNICIAN-C Primary Care Provider Active Start: November 10, 2024 Dr. Nicolas Barclay DO Attending Provider Active Start: November 10, 2024 Dr. Nicolas Barclay DO Referring Provider Active Start: November 10, 2024 Team Status: Inactive Member Role Status Dates Oscardavy Mott , HYDROELECTRIC SYSTEMS TECHNICIAN-C Primary Care Provider Active Start: November 16, 2024 End: November 16, 2024 Oscar Mott , HYDROELECTRIC SYSTEMS TECHNICIAN-C Referring Provider Active St art: November 16, 2024 End: November 16, 2024 Dr. Nicolas Barclay DO Attending Provider Active Start: November 16, 2024 End: November 16, 2024 Team Status: Inactive Member Role Status Dates Oscar Mott , HYDROELECTRIC SYSTEMS TECHNICIAN-C Primary Care Provider Active Start: November 10, 2024 End: November 10, 2024 Dr. Nicolas Barclay DO Attending Provider Active Start: November 10, 2024 End: November 10, 2024 Dr. Nicolas Barclay DO Referring Provider Active Start: November 10, 2024 End: November 10, 2024 Team Status: Active Member Role/Relationship Status Dates Oscardavy Mott , HYDROELECTRIC SYSTEMS TECHNICIAN-C Primary Care Provider Active Team Status: Inactive Member Role/Relationship Status Dates Oscardavy Mott , HYDROELECTRIC SYSTEMS TECHNICIAN-C Primary Care Provider Active Start: August 09, 2024 End: August 09, 2024 Oscar Mott , HYDROELECTRIC SYSTEMS TECHNICIAN-C Referring Provider Active St art: August 09, 2024 End: August 09, 2024 Leighann Arellano HYDROELECTRIC SYSTEMS TECHNICIAN, HYDROELECTRIC SYSTEMS TECHNICIAN-C Attending Provider Active Start: August 09, 2024 End: August 09, 2024 Team Status: Inactive Member Role/Relationship Status Dates Oscar Mott , HYDROELECTRIC SYSTEMS TECHNICIAN-C Primary Care Provider Active Start: August 10, 2024 End: August 10, 2024 Dr. Nicolas Barclay DO Attending Provider Active Start: August 10, 2024 End: August 10, 2024 Dr. Nicolas Barclay DO Referring Provider Active Start: August 10, 2024 End: August 10, 2024 Team Status: Inactive Member Role/Relationship Status Dates Oscar Mott , HYDROELECTRIC SYSTEMS TECHNICIAN-C Primary Care Provider Active Start: August 12, 2024 End: August 12, 2024 Oscar Mott , HYDROELECTRIC SYSTEMS TECHNICIAN-C Referring Provider Active St art: August 12, 2024 End: August 12, 2024 Dr. Nicolas Barclay DO Attending Provider Active Start: August 12, 2024 End: August 12, 2024 Team Status: Inactive Member Role/Relationship Status Dates Oscar Mott , HYDROELECTRIC SYSTEMS TECHNICIAN-C Primary Care Provider Active Start: August 13, 2024 End: August 13, 2024 Oscar Mott , HYDROELECTRIC SYSTEMS TECHNICIAN-C Referring Provider Active St art: August 13, 2024 End: August 13, 2024 Angela Linton HYDROELECTRIC SYSTEMS TECHNICIAN, HYDROELECTRIC SYSTEMS TECHNICIAN-C Attending Provider Active Start: August 13, 2024 End: August 13, 2024 Team Status: Inactive Member Role/Relationship Status Dates Oscar Mott , HYDROELECTRIC SYSTEMS TECHNICIAN-C Primary Care Provider Active Start: August 18, 2024 End: August 18, 2024 Oscar Mott HYDROELECTRIC SYSTEMS TECHNICIAN-C Referring Provider Active St art: August 18, 2024 End: August 18, 2024 Leighann Arellano HYDROELECTRIC SYSTEMS TECHNICIAN, HYDROELECTRIC SYSTEMS TECHNICIAN-C Attending Provider Active Start: August 18, 2024 End: August 18, 2024 Team Status: Inactive Member Role/Relationship Status Dates Oscar Mott , HYDROELECTRIC SYSTEMS TECHNICIAN-C Primary Care Provider Active Start: August 23, 2024 End: August 23, 2024 Leighann Arellano HYDROELECTRIC SYSTEMS TECHNICIAN, HYDROELECTRIC SYSTEMS TECHNICIAN-C Attending Provider Active Start: August 23, 2024 End: August 23, 2024 Leighann Arellano HYDROELECTRIC SYSTEMS TECHNICIAN, HYDROELECTRIC SYSTEMS TECHNICIAN-C Referring Provider Active Start: August 23, 2024 End: August 23, 2024 Team Status: Inactive Member Role/Relationship Status Dates Oscar Mott , HYDROELECTRIC SYSTEMS TECHNICIAN-C Primary Care Provider Active Start: August 25, 2024 End: August 25, 2024 Oscar Mott HYDROELECTRIC SYSTEMS TECHNICIAN-C Referring Provider Active St art: August 25, 2024 End: August 25, 2024 Dr. Nicola Prabhakar MD Attending Provider Active Start: August 25, 2024 End: August 25, 2024 Team Status: Inactive Member Role/Relationship Status Dates Oscar Mott , HYDROELECTRIC SYSTEMS TECHNICIAN-C Primary Care Provider Active Start: August 25, 2024 End: August 25, 2024 Oscar Mott , HYDROELECTRIC SYSTEMS TECHNICIAN-C Referring Provider Active St art: August 25, 2024 End: August 25, 2024 Dr. Maxi Merlos MD Attending Provider Active Start: August 25, 2024 End: August 25, 2024 Team Status: Inactive Member Role/Relationship Status Dates Oscar Mott , HYDROELECTRIC SYSTEMS TECHNICIAN-C Primary Care Provider Active Start: August 30, 2024 End: August 30, 2024 Oscar Mott HYDROELECTRIC SYSTEMS TECHNICIAN-C Referring Provider Active St art: August 30, 2024 End: August 30, 2024 Leighann Arellano HYDROELECTRIC SYSTEMS TECHNICIAN, HYDROELECTRIC SYSTEMS TECHNICIAN-C Attending Provider Active Start: August 30, 2024 End: August 30, 2024 Team Status: Inactive Member Role/Relationship Status Dates Oscar Mott HYDROELECTRIC SYSTEMS TECHNICIAN-C Primary Care Provider Active Start: September 08, 2024 End: September 08, 2024 Oscar Mott , HYDROELECTRIC SYSTEMS TECHNICIAN-C Referring Provider Active St art: September 08, 2024 End: September 08, 2024 Leighann Arellano HYDROELECTRIC SYSTEMS TECHNICIAN, HYDROELECTRIC SYSTEMS TECHNICIAN-C Attending Provider Active Start: September 08, 2024 End: September 08, 2024 Team Status: Inactive Member Role/Relationship Status Dates Oscar Mott , HYDROELECTRIC SYSTEMS TECHNICIAN-C Primary Care Provider Active Start: October 06, 2024 End: October 06, 2024 Oscar Mott HYDROELECTRIC SYSTEMS TECHNICIAN-C Referring Provider Active St art: October 06, 2024 End: October 06, 2024 Leighann Arellano HYDROELECTRIC SYSTEMS TECHNICIAN, HYDROELECTRIC SYSTEMS TECHNICIAN-C Attending Provider Active Start: October 06, 2024 End: October 06, 2024 Team Status: Inactive Member Role/Relationship Status Dates Oscar Mott , HYDROELECTRIC SYSTEMS TECHNICIAN-C Primary Care Provider Active Start: October 15, 2024 End: October 15, 2024 Oscar Mott HYDROELECTRIC SYSTEMS TECHNICIAN-C Attending Provider Active St art: October 15, 2024 End: October 15, 2024 Oscar Mott , HYDROELECTRIC SYSTEMS TECHNICIAN-C Referring Provider Active St art: October 15, 2024 End: October 15, 2024 Team Status: Inactive Member Role/Relationship Status Dates Oscar Mott , HYDROELECTRIC SYSTEMS TECHNICIAN-C Primary Care Provider Active Start: November 03, 2024 End: November 03, 2024 Oscar Mott , HYDROELECTRIC SYSTEMS TECHNICIAN-C Referring Provider Active St art: November 03, 2024 End: November 03, 2024 Dr. Maxi Merlos MD Attending Provider Active Start: November 03, 2024 End: November 03, 2024 Team Status: Inactive Member Role/Relationship Status Dates Oscar David , HYDROELECTRIC SYSTEMS TECHNICIAN-C Primary Care Provider Active Start: November 04, 2024 End: November 04, 2024 Oscar David , HYDROELECTRIC SYSTEMS TECHNICIAN-C Referring Provider Active St art: November 04, 2024 End: November 04, 2024 Angela Linton NP, HYDROELECTRIC SYSTEMS TECHNICIAN-C Attending Provider Active Start: November 04, 2024 End: November 04, 2024 Team Status: Inactive Member Role/Relationship Status Dates Oscar David , HYDROELECTRIC SYSTEMS TECHNICIAN-C Primary Care Provider Active Start: November 10, 2024 End: November 10, 2024 Dr. Nicolas Barclay DO Attending Provider Active Start: November 10, 2024 End: November 10, 2024 Dr. Nicolas Barclay DO Referring Provider Active Start: November 10, 2024 End: November 10, 2024 Team Status: Inactive Member Role/Relationship Status Dates Oscar David , HYDROELECTRIC SYSTEMS TECHNICIAN-C Primary Care Provider Active Start: November 16, 2024 End: November 16, 2024 Oscar David , HYDROELECTRIC SYSTEMS TECHNICIAN-C Referring Provider Active St art: November 16, 2024 End: November 16, 2024 Dr. Nicolas Barclay DO Attending Provider Active Start: November 16, 2024 End: November 16, 2024 Team Status: Active Member Role/Relationship Status Dates Oscar David , HYDROELECTRIC SYSTEMS TECHNICIAN-C Primary Care Provider Active Start: December 01, 2024 Dr. Maxi Merlos MD Referring Provider Active Start: December 01, 2024 Dr. Nicolas Barclay DO Attending Provider Active Start: December 01, 2024 Team Status: Inactive Member Role/Relationship Status Dates Oscar David , HYDROELECTRIC SYSTEMS TECHNICIAN-C Primary Care Provider Active Start: December 01, 2024 End: December 01, 2024 Oscar David , HYDROELECTRIC SYSTEMS TECHNICIAN-C Referring Provider Active St art: December 01, 2024 End: December 01, 2024 Dr. Maxi Merlos MD Attending Provider Active Start: December 01, 2024 End: December 01, 2024 Team Status: Inactive Member Role/Relationship Status Dates Oscar David , HYDROELECTRIC SYSTEMS TECHNICIAN-C Primary Care Provider Active Start: September 08, 2024 End: September 08, 2024 Oscar David , HYDROELECTRIC SYSTEMS TECHNICIAN-C Referring Provider Active St art: September 08, 2024 End: September 08, 2024 Leighann Arellano NP, HYDROELECTRIC SYSTEMS TECHNICIAN-C Attending Provider Active Start: September 08, 2024 End: September 08, 2024 Team Status: Inactive Member Role/Relationship Status Dates Oscar Mott , HYDROELECTRIC SYSTEMS TECHNICIAN-C Primary Care Provider Active Start: October 06, 2024 End: October 06, 2024 Oscar Mott , HYDROELECTRIC SYSTEMS TECHNICIAN-C Referring Provider Active St art: October 06, 2024 End: October 06, 2024 Leighann Arellano HYDROELECTRIC SYSTEMS TECHNICIAN, HYDROELECTRIC SYSTEMS TECHNICIAN-C Attending Provider Active Start: October 06, 2024 End: October 06, 2024 Team Status: Inactive Member Role/Relationship Status Dates Oscar Mott HYDROELECTRIC SYSTEMS TECHNICIAN-C Primary Care Provider Active Start: October 15, 2024 End: October 15, 2024 Oscar Mott HYDROELECTRIC SYSTEMS TECHNICIAN-C Attending Provider Active St art: October 15, 2024 End: October 15, 2024 Oscar Mott , HYDROELECTRIC SYSTEMS TECHNICIAN-C Referring Provider Active St art: October 15, 2024 End: October 15, 2024 Team Status: Inactive Member Role/Relationship Status Dates Oscar Mott , HYDROELECTRIC SYSTEMS TECHNICIAN-C Primary Care Provider Active Start: November 03, 2024 End: November 03, 2024 Oscar Mott , HYDROELECTRIC SYSTEMS TECHNICIAN-C Referring Provider Active St art: November 03, 2024 End: November 03, 2024 Dr. Maxi Merlos MD Attending Provider Active Start: November 03, 2024 End: November 03, 2024 Team Status: Inactive Member Role/Relationship Status Dates Oscar Mott , HYDROELECTRIC SYSTEMS TECHNICIAN-C Primary Care Provider Active Start: November 04, 2024 End: November 04, 2024 Oscar Mott HYDROELECTRIC SYSTEMS TECHNICIAN-C Referring Provider Active St art: November 04, 2024 End: November 04, 2024 Angela Linton NP, HYDROELECTRIC SYSTEMS TECHNICIAN-C Attending Provider Active Start: November 04, 2024 End: November 04, 2024 Team Status: Inactive Member Role/Relationship Status Dates Oscar Mott , HYDROELECTRIC SYSTEMS TECHNICIAN-C Primary Care Provider Active Start: November 10, 2024 End: November 10, 2024 Dr. Nicolas Barclay DO Attending Provider Active Start: November 10, 2024 End: November 10, 2024 Dr. Nicolas Barclay DO Referring Provider Active Start: November 10, 2024 End: November 10, 2024 Team Status: Inactive Member Role/Relationship Status Dates Oscar Valeragar , HYDROELECTRIC SYSTEMS TECHNICIAN-C Primary Care Provider Active Start: November 16, 2024 End: November 16, 2024 Oscar David , HYDROELECTRIC SYSTEMS TECHNICIAN-C Referring Provider Active St art: November 16, 2024 End: November 16, 2024 Dr. Nicolas Barclay DO Attending Provider Active Start: November 16, 2024 End: November 16, 2024 Team Status: Inactive Member Role/Relationship Status Dates Oscar David , HYDROELECTRIC SYSTEMS TECHNICIAN-C Primary Care Provider Active Start: December 01, 2024 End: December 01, 2024 Oscar David , HYDROELECTRIC SYSTEMS TECHNICIAN-C Referring Provider Active St art: December 01, 2024 End: December 01, 2024 Dr. Maxi Merlos MD Attending Provider Active Start: December 01, 2024 End: December 01, 2024 Team Status: Inactive Member Role/Relationship Status Dates Oscar David , HYDROELECTRIC SYSTEMS TECHNICIAN-C Primary Care Provider Active Start: December 24, 2024 End: December 24, 2024 Dr. Maxi Merlos MD Attending Provider Active Start: December 24, 2024 End: December 24, 2024 Dr. Maxi Merlos MD Referring Provider Active Start: December 24, 2024 End: December 24, 2024 Team Status: Active Member Role/Relationship Status Dates Oscar David , HYDROELECTRIC SYSTEMS TECHNICIAN-C Primary Care Provider Active Start: December 29, 2024 Oscar David , HYDROELECTRIC SYSTEMS TECHNICIAN-C Referring Provider Active St art: December 29, 2024 Dr. Jamie Ortiz MD Attending Provider Active S tart: December 29, 2024 Team Status: Active Member Role/Relationship Status Dates Oscar David , HYDROELECTRIC SYSTEMS TECHNICIAN-C Primary Care Provider Active Start: December 29, 2024 Dr. Maxi Merlos MD Referring Provider Active Start: December 29, 2024 Dr. Nicolas Barclay DO Attending Provider Active Start: December 29, 2024 Team Status: Inactive Member Role/Relationship Status Dates Oscar David , HYDROELECTRIC SYSTEMS TECHNICIAN-C Primary Care Provider Active Start: December 29, 2024 End: December 29, 2024 Oscar David , HYDROELECTRIC SYSTEMS TECHNICIAN-C Referring Provider Active St art: December 29, 2024 End: December 29, 2024 Dr. Jamie Ortiz MD Attending Provider Active S tart: December 29, 2024 End: December 29, 2024 Team Status: Inactive Member Role/Relationship Status Dates Oscar Mott , HYDROELECTRIC SYSTEMS TECHNICIAN-C Primary Care Provider Active Start: October 06, 2024 End: October 06, 2024 Oscar Mott , HYDROELECTRIC SYSTEMS TECHNICIAN-C Referring Provider Active St art: October 06, 2024 End: October 06, 2024 Leighann Arellano HYDROELECTRIC SYSTEMS TECHNICIAN, HYDROELECTRIC SYSTEMS TECHNICIAN-C Attending Provider Active Start: October 06, 2024 End: October 06, 2024 Team Status: Inactive Member Role/Relationship Status Dates Oscardavy Mott , HYDROELECTRIC SYSTEMS TECHNICIAN-C Primary Care Provider Active Start: October 15, 2024 End: October 15, 2024 Oscar Mott , HYDROELECTRIC SYSTEMS TECHNICIAN-C Attending Provider Active St art: October 15, 2024 End: October 15, 2024 Oscardavy Mott , HYDROELECTRIC SYSTEMS TECHNICIAN-C Referring Provider Active St art: October 15, 2024 End: October 15, 2024 Team Status: Inactive Member Role/Relationship Status Dates Oscar David , HYDROELECTRIC SYSTEMS TECHNICIAN-C Primary Care Provider Active Start: November 03, 2024 End: November 03, 2024 Oscar Mott , HYDROELECTRIC SYSTEMS TECHNICIAN-C Referring Provider Active St art: November 03, 2024 End: November 03, 2024 Dr. Maxi Merlos MD Attending Provider Active Start: November 03, 2024 End: November 03, 2024 Team Status: Inactive Member Role/Relationship Status Dates Oscardavy Mott , HYDROELECTRIC SYSTEMS TECHNICIAN-C Primary Care Provider Active Start: November 04, 2024 End: November 04, 2024 Oscar Mott , HYDROELECTRIC SYSTEMS TECHNICIAN-C Referring Provider Active St art: November 04, 2024 End: November 04, 2024 Angela Linton NP, HYDROELECTRIC SYSTEMS TECHNICIAN-C Attending Provider Active Start: November 04, 2024 End: November 04, 2024 Team Status: Inactive Member Role/Relationship Status Dates Oscardavy Mott , HYDROELECTRIC SYSTEMS TECHNICIAN-C Primary Care Provider Active Start: November 10, 2024 End: November 10, 2024 Dr. Nicolas Barclay DO Attending Provider Active Start: November 10, 2024 End: November 10, 2024 Dr. Nicolas Barclay DO Referring Provider Active Start: November 10, 2024 End: November 10, 2024 Team Status: Inactive Member Role/Relationship Status Dates Oscar David , HYDROELECTRIC SYSTEMS TECHNICIAN-C Primary Care Provider Active Start: November 16, 2024 End: November 16, 2024 Oscar Mott , HYDROELECTRIC SYSTEMS TECHNICIAN-C Referring Provider Active St art: November 16, 2024 End: November 16, 2024 Dr. Nicolas Barclay DO Attending Provider Active Start: November 16, 2024 End: November 16, 2024 Team Status: Inactive Member Role/Relationship Status Dates Oscar David , HYDROELECTRIC SYSTEMS TECHNICIAN-C Primary Care Provider Active Start: December 01, 2024 End: December 01, 2024 Oscar David , HYDROELECTRIC SYSTEMS TECHNICIAN-C Referring Provider Active St art: December 01, 2024 End: December 01, 2024 Dr. Maxi Merlos MD Attending Provider Active Start: December 01, 2024 End: December 01, 2024 Team Status: Inactive Member Role/Relationship Status Dates Oscar David , HYDROELECTRIC SYSTEMS TECHNICIAN-C Primary Care Provider Active Start: December 24, 2024 End: December 24, 2024 Dr. Maxi Merlos MD Attending Provider Active Start: December 24, 2024 End: December 24, 2024 Dr. Maxi Merlos MD Referring Provider Active Start: December 24, 2024 End: December 24, 2024 Team Status: Inactive Member Role/Relationship Status Dates Oscar David , HYDROELECTRIC SYSTEMS TECHNICIAN-C Primary Care Provider Active Start: December 29, 2024 End: December 29, 2024 Oscar David , HYDROELECTRIC SYSTEMS TECHNICIAN-C Referring Provider Active St art: December 29, 2024 End: December 29, 2024 Dr. Jamie Ortiz MD Attending Provider Active S tart: December 29, 2024 End: December 29, 2024 Team Status: Inactive Member Role/Relationship Status Dates Oscar David , HYDROELECTRIC SYSTEMS TECHNICIAN-C Primary Care Provider Active Start: January 26, 2025 End: January 26, 2025 Oscar David , HYDROELECTRIC SYSTEMS TECHNICIAN-C Referring Provider Active St art: January 26, 2025 End: January 26, 2025 Dr. Maxi Merlos MD Attending Provider Active Start: January 26, 2025 End: January 26, 2025 Team Status: Active Member Role/Relationship Status Dates Oscar Mott , HYDROELECTRIC SYSTEMS TECHNICIAN-C Primary Care Provider Active Start: January 26, 2025 Dr. Maxi Merlos MD Referring Provider Active Start: January 26, 2025 Dr. Nicolas Barclay DO Attending Provider Active Start: January 26, 2025 Team Status: Inactive Member Role/Relationship Status Dates Oscar David , HYDROELECTRIC SYSTEMS TECHNICIAN-C Primary Care Provider Active Start: February 01, 2025 End: February 01, 2025 Oscardavy Mott , HYDROELECTRIC SYSTEMS TECHNICIAN-C Referring Provider Active St art: February 01, 2025 End: February 01, 2025 Dr. Nicola Prabhakar MD Attending Provider Active Start: February 01, 2025 End: February 01, 2025 Team Status: Inactive Member Role/Relationship Status Dates Oscar David , HYDROELECTRIC SYSTEMS TECHNICIAN-C Primary Care Provider Active Start: November 03, 2024 End: November 03, 2024 Oscardavy Mott , HYDROELECTRIC SYSTEMS TECHNICIAN-C Referring Provider Active St art: November 03, 2024 End: November 03, 2024 Dr. Maxi Merlos MD Attending Provider Active Start: November 03, 2024 End: November 03, 2024 Team Status: Inactive Member Role/Relationship Status Dates Oscar David , HYDROELECTRIC SYSTEMS TECHNICIAN-C Primary Care Provider Active Start: November 04, 2024 End: November 04, 2024 Oscar David , HYDROELECTRIC SYSTEMS TECHNICIAN-C Referring Provider Active St art: November 04, 2024 End: November 04, 2024 Angela Linton NP, HYDROELECTRIC SYSTEMS TECHNICIAN-C Attending Provider Active Start: November 04, 2024 End: November 04, 2024 Team Status: Inactive Member Role/Relationship Status Dates Oscar David , HYDROELECTRIC SYSTEMS TECHNICIAN-C Primary Care Provider Active Start: November 10, 2024 End: November 10, 2024 Dr. Nicolas Barclay DO Attending Provider Active Start: November 10, 2024 End: November 10, 2024 Dr. Nicolas Barclay DO Referring Provider Active Start: November 10, 2024 End: November 10, 2024 Team Status: Inactive Member Role/Relationship Status Dates Oscar David , HYDROELECTRIC SYSTEMS TECHNICIAN-C Primary Care Provider Active Start: November 16, 2024 End: November 16, 2024 Oscar David , HYDROELECTRIC SYSTEMS TECHNICIAN-C Referring Provider Active St art: November 16, 2024 End: November 16, 2024 Dr. Nicolas Barclay DO Attending Provider Active Start: November 16, 2024 End: November 16, 2024 Team Status: Inactive Member Role/Relationship Status Dates Oscar David , HYDROELECTRIC SYSTEMS TECHNICIAN-C Primary Care Provider Active Start: December 01, 2024 End: December 01, 2024 Oscar David , HYDROELECTRIC SYSTEMS TECHNICIAN-C Referring Provider Active St art: December 01, 2024 End: December 01, 2024 Dr. Maix Merlos MD Attending Provider Active Start: December 01, 2024 End: December 01, 2024 Team Status: Inactive Member Role/Relationship Status Dates Oscar David , HYDROELECTRIC SYSTEMS TECHNICIAN-C Primary Care Provider Active Start: December 24, 2024 End: December 24, 2024 Dr. Maxi Merlos MD Attending Provider Active Start: December 24, 2024 End: December 24, 2024 Dr. Maxi Merlos MD Referring Provider Active Start: December 24, 2024 End: December 24, 2024 Team Status: Inactive Member Role/Relationship Status Dates Oscar David , HYDROELECTRIC SYSTEMS TECHNICIAN-C Primary Care Provider Active Start: December 29, 2024 End: December 29, 2024 Oscar David , HYDROELECTRIC SYSTEMS TECHNICIAN-C Referring Provider Active St art: December 29, 2024 End: December 29, 2024 Dr. Jamie Ortiz MD Attending Provider Active S tart: December 29, 2024 End: December 29, 2024 Team Status: Inactive Member Role/Relationship Status Dates Oscar David , HYDROELECTRIC SYSTEMS TECHNICIAN-C Primary Care Provider Active Start: January 26, 2025 End: January 26, 2025 Oscar David , HYDROELECTRIC SYSTEMS TECHNICIAN-C Referring Provider Active St art: January 26, 2025 End: January 26, 2025 Dr. Maxi Merlos MD Attending Provider Active Start: January 26, 2025 End: January 26, 2025 Team Status: Active Member Role/Relationship Status Dates Oscar David , HYDROELECTRIC SYSTEMS TECHNICIAN-C Primary Care Provider Active Start: January 26, 2025 Dr. Maxi Merlos MD Referring Provider Active Start: January 26, 2025 Dr. Nicolas Barclay DO Attending Provider Active Start: January 26, 2025 Team Status: Inactive Member Role/Relationship Status Dates Oscar David , HYDROELECTRIC SYSTEMS TECHNICIAN-C Primary Care Provider Active Start: February 01, 2025 End: February 01, 2025 Oscar David , HYDROELECTRIC SYSTEMS TECHNICIAN-C Referring Provider Active St art: February 01, 2025 End: February 01, 2025 Dr. Nicola Prabhakar MD Attending Provider Active Start: February 01, 2025 End: February 01, 2025 Team Status: Active Member Role/Relationship Status Dates Oscar David , HYDROELECTRIC SYSTEMS TECHNICIAN-C Primary Care Provider Active Start: February 10, 2025 Dr. Nicolas Barclay DO Attending Provider Active Start: February 10, 2025 Dr. Nicolas Barclay DO Referring Provider Active Start: February 10, 2025 Team Status: Inactive Member Role/Relationship Status Dates ANNETTE Willis Primary Care Provider Active Start: February 15, 2025 End: February 15, 2025 ANNETTE Willis Referring Provider Active St art: February 15, 2025 End: February 15, 2025 Dr. Nicolas Barclay , Attending Provider Active Start: February 15, 2025 End: February 15, 2025 INFORMATION SOURCE (unrecogn ized section and content) DATE CREATED AUTHOR 11/08/2021 [facility] DATE CREATED AUTHOR AUTHOR'S ORGANIZ ATION 06/14/2024 [facility] DATE CREATED AUTHOR AUTHOR'S ORGANIZ ATION 02/22/2025 [facility] Goals (unrecognized section and content) Goals may be documented in a n alternate sectionGoals may be documented in an alternate sectionGoals may be documented in an alternate sectionGoals may be documented in an alternate sectionGoals may be documented in an alternate sectionGoals may be documented in an alternate sectionGoals may be documented in an alternate sectionGoals may be documented in an alternate sectionGoals may be documented in an alternate sectionGoals may be documented in an alternate sectionGoals may be documented in an alternate sectionGoals may be documented in an alternate sectionGoals may be documented in an alternate sectionGoals may be documented in an alternate sectionGoals may be documented in an alternate sectionGoals may be documented in an alternate sectionGoals may be documented in an alternate section Reason for Visit (unrecogniz ed section and content) Reason Onset Date Comments Care Coordination 04/16/2024 Reason Comments New Patient needs ct guided bx Reason Onset Date Comments Care Coordination 04/20/2024 Outside image request Reason Comments Tumor Board Recommendations Thoracic Van or Board Recommendations 05/04/24 Reason Onset Date Comments Care Coordination 05/04/2024 MRI and oncolo gy appt scheduling/ record communications PRN Active and Recently Administ ered Medications (unrecognized section and content) Medication Order 04/24/2024 04/25/2024 04/26/2024 sodium chloride 0.9 % infusion (CANCELED) 5-250 mL/hr, IntraVENous, PRN, if patient receiving piggyback infusions and maintenance fluids are not ordered OR KVO fluids to protect IV site / prevent frequent line interruptions/ long duration, Starting on Fri04/26/24 at 0754, Preprocedure, For piggyback infusion, administer at same rate as piggyback for a total of 25 mL. Enter 25 mL into dose field and piggyback rate into rate field of order. If piggyback is infusing at a rate less than 100 mL/hr, enter 25 mL into dose field and 100 mL/hr into rate field of order. For KVO fluids, enter rate of 20 mL/hr or less into rate field of order. 0814 (New Bag - Prov ider: Rosemary Edwards RN)[id number] (Continued by Anesthesia - Provider: Jacques Wise CRNA)1049 (Anesthesia Volume Adjustment - Provider: Jacques Wise CRNA) FOR RECORDS PERTAINING TO PATIENTS WHO ARE OR HAVE BEEN ENROLLED IN A CHEMICAL DEPENDENCY/SUBSTANCEABUSE PROGRAM, SOME INFORMATION MAY BE OMITTED. This clinical summary was aggregated from multiple sources. Caution should be exercised in using it in the provision of clinical care. This summary normalizes information from multiple sources, and as a consequence, information in this document may materially change the coding, format and clinical context of patient data. In addition, data may be omitted in some cases. CLINICAL DECISIONS SHOULD BE BASED ON THE PRIMARY CLINICAL RECORDS. [employer] provides no warranty or guarantee of the accuracy or completeness of information in this document.
[2025-02-22] MEDS: Lactated Ringers 1,000 ML 15 ML IV (06:49)
--- NOTE | 2025-02-22 07:13 | PCM.HP.BLA ---
History and Physical Date of Admission: 02/22/25 Intake Vital Signs 01/27/2512:06 02/01/2513:40 Height 5 ft 4 in 5 ft 4 in Weight: 209 lb 6 oz 211 lb BMI 35.9 36.2 BP 130/85 H 105/57 L Blood Pressure Location Lt brachial Rt brachial Position Sitting Sitting Respiration 16 18 Pulse 77 84 Pulse Source Monitor Monitor Temp 97.9 F Pulse Oximetry (%) 95 96 Oxygen Delivery Method room air room air Intake Visit Reasons: BLOOD IN STOOL Chief Complaint: blood stool Is patient in pain?: No Allergies vaccine adjuvant system, AS01B liposomal (From Shingrix (PF)) Allergy (Verified 02/01/25 13:41) Rash varicella-zoster virus glycoprotein E, recombinant (From Shingrix (PF)) Allergy (Verified 02/01/25 13:41) Rash Medications ?Medication ?Instructions ?Recorded ?Confirmed ?Type duloxetine 60 mg capsule,delayed 60 mg PO DAILY depression 11/25/13 02/01/25 History release lovastatin 40 mg tablet 40 mg PO DAILY hld 11/25/13 02/01/25 History cholecalciferol (vitamin D3) 125 5,000 unit PO DAILY supplement 06/25/23 02/01/25 History mcg (5,000 unit) capsule levothyroxine 100 mcg tablet 100 mcg PO DAILY thyroid 06/25/23 02/01/25 History metformin 1,000 mg tablet 1,000 mg PO BID dm 06/25/23 02/01/25 History acetaminophen 500 mg capsule 500 mg PO Q6H PRN pain 05/12/24 02/01/25 History lidocaine-prilocaine 2.5 %-2.5 % 1 applic topical ONCE PRN port 05/17/24 02/01/25 Rx topical cream access 30 days #30 grams omeprazole 20 mg capsule,delayed 20 mg PO QDAY 08/30/24 02/01/25 History release fluticasone fur. 100 mcg-umeclid 1 inh inhalation DAILY asthma #3 ea 10/08/24 02/01/25 Rx 62.5 mcg-vilant 25 mcg inhalat.powder (Trelegy Ellipta) albuterol sulfate 90 mcg/actuation 2 puff inhalation Q6H asthma #18 10/11/24 02/01/25 Rx aerosol inhaler (Ventolin HFA) grams L.acidophil,salivari-Bifido 1 cap PO BID 11/04/24 02/01/25 History bifidum-Strep thermoph 175 mg capsule Have you fallen in the past year?: No PFSH Medical History Fatigue Encounter for antineoplastic immunotherapy History of lipoma Right upper limb pain Hypomagnesemia Drug induced neutropenia Hypokalemia Diarrhea Encounter for chemotherapy management Encounter for education Wears glasses Wears dentures Post-menopausal Cancer Thyroid disease Diabetes Arthritis Anemia High cholesterol Heartburn Gastric reflux Former smoker CPAP (continuous positive airway pressure) dependence Sleep apnea Leg cramps History of edema History of echocardiogram History of stress test Regional lymph node metastasis present Primary fibromyalgia syndrome Chondromalacia Chronic obstructive lung disease Depression Hyperlipidemia Vitamin D deficiency Hypothyroidism Localized swelling, mass and lump, unspecified MARTELL (obstructive sleep apnea) Dyspnea Right ankle pain Surgical History History of colonoscopy History of ankle surgery History of cataract extraction Family History Mother Heart disease CVA (cerebral vascular accident) Brain tumor Father Cancer Stomach Heart disease Social History Smoking Status: Former smoker quit date: 06/02/16 pack-years: 63 Tobacco: How many years used: 42 Electronic Cigarette Use: not used how long ago did patient quit smokin years second hand exposure: Yes quit status: quit date established alcohol intake: never substance use type: does not use HPI HPI HPI: Patient is a 69-year-old female here with GI bleeding. I performed an EGD and colonoscopy in 2020 which was normal. The patient is here with dark blood per rectum. The patient does not note any abdominal pain. She says it has been going on for about a month. She denies nausea or vomiting. She does feel bloated. ROS General General: No weight change, appetite, fatigue, colon cancer, breast cancer or weakness HEENT HEENT: No difficulty swallowing, eye injury, eye surgery, swollen glands or hoarseness Endo Endocrine: Yes diabetes mellitus; No thyroid disease, thyroid cancer, Hair loss, heat intolerance or cold intolerance Skin Skin: No rash or changing moles Musc Musculoskeletal: Yes arthritis; No back problems, rheumatoid arthritis, gout or joint pain Cardio Cardiovascular: No murmur, pacemaker, heart disease, atrial fibrillation, high blood pressure, heart attack, heart stent, palpitations, shortness of breath with exertion or chest pain Psych Psychiatric: No depression, anxiety or hearing voices Resp Respiratory: Yes shortness of breath, Yes sleep apnea, No cough, Yes COPD, No asthma, No emphysema and No wheezing Gastro Gastrointestinal: No abdominal pain, No nausea or vomiting, No diarrhea, Yes constipation, Yes blood in stool, No acid reflux, Yes hemorrhoids, No ulcers, No gallbladder problem and No black,tarry stools [place] Hematologic: No blood thinners, No blood disorders, No bleeding, No anemia and No blood clots Neuro Neurologic: No system reviewed and no additional complaints, except as documented, No as per HPI, No abnormal gait, No abnormal hearing, No abnormal movements, No abnormal speech, No behavioral changes, No burning sensations, No confusion, No convulsions, No disequilibrium, No dizziness, No localized weakness, No frequent falls, No headache(s), No lack of coordination, No loss of vision, No memory loss, Yes numbness, No other visual disturbances, No radicular pain, No restless legs, No sensory deficit, No syncope, Yes tingling, No tremor(s), No weakness and No other Exam Const General: cooperative Orientation: alert and oriented x3 [facility] Head: normal to inspection Neck Neck: normal visual inspection and full ROM Chest Chest palpation & inspection: normal inspection of the chest Resp Effort & Inspection: normal respiratory effort Auscultation: clear to auscultation bilaterally Cardio Rate: regular rate Rhythm: regular rhythm GI Inspection: non-distended Palpation: soft and nontender Skin General: no rashes or lesions noted Neuro General: patient alert and patient oriented x3 Extrem General: full ROM Psych Appearance: grossly normal Mental Status: mental status grossly normal Assessment and Plan Assessment and Plan (1) Blood in stool: Status: Acute Plan: The patient is having anemia and blood in the stool. I discussed performing EGD and colonoscopy to evaluate for the bleeding. It is possible that it is upper GI in nature as it is dark. I explained endoscopy in detail to the patient. I explained the risks including but not limited to stroke or heart attack with anesthesia, perforation of the GI tract, bleeding, infection. I explained that any of these could necessitate further emergency surgery. The patient understands and all questions were answered sufficiently. The patient wishes to proceed with procedure. Nicola Prabhakar MD Pager: [facility] [address] [place] [address] [address] [place] [address] Office: I have examined the patient and the H&P has been reviewed. There are no clinical changes since date of exam.
--- NOTE | 2025-02-22 07:20 | PCM.PRE.AN2 ---
ASA Classification* ASA Classification ASA Classification: 2 Assessment & Plan Anesthesia* Anesthesia Assessment Anesthesia Assessment: Discussed sedation and/or anesthesia options, risks, benefits, and alternatives with patient/parents/legal guardian/POA. Questions invited. The patient/parents/legal guardian/POA seems to understand and agrees to proceed with anesthesia plan. Reviewed the physical assessment, medical history, allergy history and patient home medications list prior to surgery/procedure/anesthetic and documented any changes. Performed airway and anesthesia risk assessments. Anesthesia Type Anesthesia Type: MAC History Source History Obtained from:: Patient and Chart Anesthesia Focused Assessment* Temperature: 97.8 F Pulse Rate: 73 Blood Pressure: 107/65 Respiratory Rate: 16 Pulse Ox: 92 Oxygen Delivery Method: Room Air Airway Assessment Mouth opens: >3 cm Mallampati Score: II Teeth Condition: Dentures (Patient has full upper and lower dentures. They are out.) Neck Range of motion (ROM): Limited ROM (Slight Decrease) Labs Anesthesia Preop lab: CBC WBC, (4.4-11.0) 6.3 K/mm3 01/26/25, 11:35 RBC, (4.2-5.4) 3.60 M/mm3 L 01/26/25, 11:35 Hgb, (12.0-15.0) 11.0 g/dL L 01/26/25, 11:35 Hct, (37-47) 33.9 % L 01/26/25, 11:35 Plt Count, (150-450) 239 K/mm3 01/26/25, 11:35 CHEMISTRY Potassium, (3.3-5.1) 4.2 mmol/L 01/26/25, 11:35 Sodium, (133-145) 142 mmol/L 01/26/25, 11:35 Magnesium, (1.5-2.2) 1.7 mg/dL 12/29/24, 10:35 Phosphorus, (2.7-4.5) 3.8 mg/dL 12/29/24, 10:35 BUN, (4-19) 18 mg/dL 01/26/25, 11:35 Creatinine, (0.70-1.20) 0.87 mg/dL 01/26/25, 11:35 Glucose, (70-99) 127 mg/dL H 01/26/25, 11:35 POC Glucose, (74-106) 84 mg/dL 07/05/24, 11:13 TSH, (0.300-4.200) 0.094 uIU/mL L 10/06/24, 10:48 COAG PT, (11.7-14.9) 15.0 SECONDS H 05/30/24, 13:24 Pre-Assessment Diagnosis/Proposed Procedure Planned Operative Procedure(s): EGD/CSCOPE Anesthesia History Anesthesia History - renewable energy division manager: Anesthesia History - renewable energy division manager Hx Hospitalization Yes 02/18/25 09:25 Any Problems With Anesthesia No 02/18/25 09:25 Cholinesterase deficiency No 02/18/25 09:25 You/Your Family Experience No 02/18/25 09:25 fever (hyperthermia) with Relationship Recent Exposure to Contagious No 02/22/25 06:38 Disease Does patient have nerve No 02/18/25 09:25 stimulator Patient instructed to have device shut off --Does patient have Pacemaker No 02/22/25 06:42 or ICD? When Was Last Pacemaker Check QUESTION #4 FULL TEXT: You/Your Family Experience fever (hyperthermia) with Anesthesia Last Oral Intake Last Oral intake: Last Oral Intake NPO since 23:45 02/22/25 06:42 Meds taken in AM with sips of No 02/22/25 06:42 water? Meds patient instructed to take am of surgery PONV PONV - renewable energy division manager: PONV - renewable energy division manager Female Yes 02/18/25 09:25 HX of Motion Sickness Yes 02/18/25 09:25 HX of N/V After Surgery No 02/18/25 09:25 Non-Smoker Yes 02/18/25 09:25 Duration of Surgery greater No 02/18/25 09:25 than 60 minutes Number of Risk Factors 3 02/18/25 09:25 PONV Score Moderate Risk 02/18/25 09:25 Height & Weight Height & Weight: Anesthesia: Height & Weight Height 5 ft 4 in 02/22/25 06:42 Weight: 91.626 kg 02/22/25 06:42 Body Mass Index (BMI) 34.7 02/22/25 06:42 Respiratory Assessment Respiratory Assessment - renewable energy division manager: Respiratory Tract Infection Hx - renewable energy division manager Hx Respiratory Tract Infection No 02/18/25 09:25 STOP Sleep Apnea STOP Sleep Apnea - renewable energy division manager: STOP Sleep Apnea - renewable energy division manager Hx Hypertension No 02/18/25 09:25 Hx Sleep Apnea Yes 02/18/25 09:25 CPAP Yes 02/18/25 09:25 BIPAP No 02/18/25 09:25 Do you snore loudly (louder than talking or can be heard Do you often feel tired/ fatigued/ sleepy during daytime? Has anyone observed you stop breathing during sleep? STOP Results Positive 02/18/25 09:25 QUESTION #5 FULL TEXT : Do you snore loudly (louder than talking or can be heard through closed doors)? Tobacco Use History Tobacco Use History - renewable energy division manager: Tobacco Use History - renewable energy division manager Tobacco Use Smoking Status Former smoker 02/18/25 09:25 Hx Tobacco Use No 02/18/25 09:25 Years Smoking Packs Smoked per Day Smoking Cessation Date was Yes - quit smoking within 15 02/18/25 09:25 within the last 15 years years Hx Smoking Cessation Date 06/06/16 02/18/25 09:25 Hx Smoking Cessation No 02/18/25 09:25 Counseling Hematologic Medial History Hematologic Hx - renewable energy division manager: Hematologic Medical Hx - database support Hx of Blood Transfusion Yes 02/18/25 09:25 Hx of Transfusion in last 3 No 02/18/25 09:25 Months Date of Last Transfusion (if within last 3 months) Ever experience any problems No 02/18/25 09:25 with transfusion(s)? Specify any problems Hx of Preganancy in last 3 No 02/18/25 09:25 Months Nurse Filling Out Transfusion DSCHRIBER 02/18/25 09:25 & Questions: Date: 02/18/25 02/18/25 09:25 Time: :02/18/25 09:25 Patient unable to answer at this time (ie. confused, unrespo /Reproduction History /Reproductive History - renewable energy division manager: /Reproductive Hx- renewable energy division manager Hx Now No 02/18/25 09:25 Gestational Age (in weeks): EDC: Hx Hx Para Hx Section SAB No 02/18/25 09:25 Active Medications Active Medications: Current Medications Generic Name Dose Route Start Last Admin Trade Name Freq PRN Reason Stop Dose Admin Lactated Ringer's 1,000 mls @ 15 mls/hr 02/22/25 06:30 02/22/25 06:49 IV 15 mls/hr .Q48H MARGARITO Administration PFSH Medical History Depression Anxiety Alcohol use Back pain Dietary restriction Rectal bleeding Shortness of breath on exertion Fatigue History of lipoma Right upper limb pain Drug induced neutropenia Hypomagnesemia Hypokalemia Diarrhea Encounter for chemotherapy management Encounter for education Wears glasses Wears dentures Post-menopausal Cancer Thyroid disease Diabetes Arthritis Anemia High cholesterol Gastric reflux Former smoker CPAP (continuous positive airway pressure) dependence Leg cramps History of edema History of echocardiogram History of stress test Regional lymph node metastasis present Primary fibromyalgia syndrome Chondromalacia Chronic obstructive lung disease Depression Hyperlipidemia Vitamin D deficiency Localized swelling, mass and lump, unspecified MARTELL (obstructive sleep apnea) Dyspnea Right ankle pain Home Medications ?Medication ?Instructions ?Recorded ?Last Taken ?Type lovastatin 40 mg tablet 40 mg PO QHS hld 11/25/13 02/21/25 History cholecalciferol (vitamin D3) 125 5,000 unit PO DAILY supplement 06/25/23 02/21/25 History mcg (5,000 unit) capsule levothyroxine 100 mcg tablet 100 mcg PO DAILY thyroid 06/25/23 02/21/25 History metformin 1,000 mg tablet 1,000 mg PO BID dm 06/25/23 02/21/25 History omeprazole 20 mg capsule,delayed 20 mg PO QDAY 08/30/24 02/21/25 History release albuterol sulfate 90 mcg/actuation 2 puff inhalation Q6H asthma #18 10/11/24 02/21/25 Rx aerosol inhaler (Ventolin HFA) grams L.acidophil,salivari-Bifido 1 cap PO BID 11/04/24 02/21/25 History bifidum-Strep thermoph 175 mg capsule fluticasone fur. 100 mcg-umeclid 1 inh inhalation QHS asthma 02/18/25 02/21/25 History 62.5 mcg-vilant 25 mcg inhalat.powder (Trelegy Ellipta) Allergy/AdvReac Type Severity Reaction Status Date / Time vaccine adjuvant system, Allergy Rash Verified 02/22/25 06:37 AS01B liposomal (From Shingrix (PF)) varicella-zoster virus Allergy Rash Verified 02/22/25 06:37 glycoprotein E, recombinant (From Shingrix (PF)) Family History Mother Heart disease CVA (cerebral vascular accident) Brain tumor Father Cancer Stomach Heart disease Surgical History History of colonoscopy History of ankle surgery History of cataract extraction Social History Smoking Status: Former smoker quit date: 06/02/16 pack-years: 63 Tobacco: How many years used: 42 Electronic Cigarette Use: not used how long ago did patient quit smokin years second hand exposure: Yes quit status: quit date established alcohol intake: never substance use type: does not use Review of Systems (Anesthesia) ROS Narrative System reviewed and no additional complaints, except as documented.
[2025-02-22] MEDS: Lidocaine 1% (5 ml sdv) 5 ML Vial 8 ML IV (07:45)
--- NOTE | 2025-02-22 08:11 | OP.PROVAT_ITS ---
02/22/2025 Margarita Willis Re : Upper GI endoscopy procedure for Leeanna Ramirez Dear [facility] This procedure was performed on Saturday, February 22, 2025. My impressions and recommendations are as follows: Impressions : - Normal esophagus. - Normal stomach. - Normal examined duodenum. - No specimens collected. Recommendations : - Discharge patient to home. - Resume previous diet. - Continue present medications. My findings are described in the full procedure note, which is enclosed. If I can be of further assistance, please feel free to contact me at Doctor phone number(s): , Work: . Sincerely, Nicola Prabhakar MD 02/22/2025 8:10:37 AM This report has been signed electronically.
--- NOTE | 2025-02-22 08:11 | OP.EGD_ITS ---
Patient Name: Leeanna Ramirez Procedure Date: 02/22/2025 7:12 AM Date of : 1955 Age: 69 Procedure: Upper GI endoscopy Indications: Iron deficiency anemia, Hematochezia Providers: Nicola Prabhakar MD Referring MD: Margarita Willis Medicines: Propofol per Anesthesia Patient Profile: This is a 69 year old female. Refer to note in patient chart for documentation of history and physical. Complications: No immediate complications. Procedure: Pre-Anesthesia Assessment: - Prior to the procedure, a History and Physical was performed, and patient medications and allergies were reviewed. The patient's tolerance of previous anesthesia was also reviewed. The risks and benefits of the procedure and the sedation options and risks were discussed with the patient. All questions were answered, and informed consent was obtained. Prior Anticoagulants: The patient has taken no anticoagulant or antiplatelet agents. After reviewing the risks and benefits, the patient was deemed in satisfactory condition to undergo the procedure. After obtaining informed consent, the endoscope was passed under direct vision. Throughout the procedure, the patient's blood pressure, pulse, and oxygen saturations were monitored continuously. The Colonoscope was introduced through the mouth, and advanced to the third part of duodenum. The upper GI endoscopy was accomplished without difficulty. The patient tolerated the procedure well. Scope In: 7:46:37 AM Scope Withdrawal Time 0 hours 0 minutes 6 seconds Scope Out: 7:48:55 AM Total Procedure Duration Time 0 hours 2 minutes 18 seconds Findings: The esophagus was normal. The stomach was normal. The examined duodenum was normal. Impression: - Normal esophagus. - Normal stomach. - Normal examined duodenum. - No specimens collected. Recommendation: - Discharge patient to home. - Resume previous diet. - Continue present medications. Procedure Code(s): --- Professional --- 72802, Esophagogastroduodenoscopy, flexible, transoral; diagnostic, including collection of specimen(s) by brushing or washing, when performed (separate procedure) Diagnosis Code(s): --- Professional --- D50.9, Iron deficiency anemia, unspecified K92.1, Melena (includes Hematochezia) CPT copyright 2021 [employer]. All rights reserved. The codes documented in this report are preliminary and upon patternmaker grader review may be revised to meet current compliance requirements. Nicola Prabhakar MD 02/22/2025 8:10:37 AM This report has been signed electronically. Number of Addenda: 0 Note Initiated On: 02/22/2025 7:12 AM
--- NOTE | 2025-02-22 08:12 | OP.PROVAT_ITS ---
02/22/2025 Margarita Willis Re : Colonoscopy procedure for Leeanna Ramirez Dear [facility] This procedure was performed on Saturday, February 22, 2025. My impressions and recommendations are as follows: Impressions : - The entire examined colon is normal on direct and retroflexion views. - No specimens collected. Recommendations : - Discharge patient to home. - Resume previous diet. - Continue present medications. - Repeat colonoscopy in 10 years for screening purposes. My findings are described in the full procedure note, which is enclosed. If I can be of further assistance, please feel free to contact me at Doctor phone number(s): , Work: . Sincerely, Nicola Prabhakar MD 02/22/2025 8:11:58 AM This report has been signed electronically.
--- NOTE | 2025-02-22 08:12 | OP.COLON_ITS ---
Patient Name: Leeanna Ramirez Procedure Date: 02/22/2025 7:49 AM Date of : 1955 Age: 69 Procedure: Colonoscopy Indications: Hematochezia Providers: Nicola Prabhakar MD Referring MD: Margarita Willis Medicines: Propofol per Anesthesia Patient Profile: This is a 69 year old female. Refer to note in patient chart for documentation of history and physical. Last Colonoscopy: 5 years ago. Complications: No immediate complications. Procedure: Pre-Anesthesia Assessment: - Prior to the procedure, a History and Physical was performed, and patient medications and allergies were reviewed. The patient's tolerance of previous anesthesia was also reviewed. The risks and benefits of the procedure and the sedation options and risks were discussed with the patient. All questions were answered, and informed consent was obtained. Prior Anticoagulants: The patient has taken no anticoagulant or antiplatelet agents. After reviewing the risks and benefits, the patient was deemed in satisfactory condition to undergo the procedure. After I obtained informed consent, the scope was passed under direct vision. Throughout the procedure, the patient's blood pressure, pulse, and oxygen saturations were monitored continuously. The Colonoscope was introduced through the anus and advanced to the cecum, identified by appendiceal orifice and ileocecal valve. The colonoscopy was performed without difficulty. The patient tolerated the procedure well. The quality of the bowel preparation was good. The ileocecal valve, appendiceal orifice, and rectum were photographed. Scope In: 7:51:37 AM Scope Withdrawal Time 0 hours 6 minutes 9 seconds Scope Out: 8:05:35 AM Total Procedure Duration Time 0 hours 13 minutes 58 seconds Findings: The entire examined colon appeared normal on direct and retroflexion views. Impression: - The entire examined colon is normal on direct and retroflexion views. - No specimens collected. Recommendation: - Discharge patient to home. - Resume previous diet. - Continue present medications. - Repeat colonoscopy in 10 years for screening purposes. Procedure Code(s): --- Professional --- 58808, Colonoscopy, flexible; diagnostic, including collection of specimen(s) by brushing or washing, when performed (separate procedure) Diagnosis Code(s): --- Professional --- K92.1, Melena (includes Hematochezia) CPT copyright 2021 [employer]. All rights reserved. The codes documented in this report are preliminary and upon grave digger review may be revised to meet current compliance requirements. Nicola Prabhakar MD 02/22/2025 8:11:58 AM This report has been signed electronically. Number of Addenda: 0 Note Initiated On: 02/22/2025 7:49 AM
--- NOTE | 2025-02-22 08:15 | PCM.POST.ANE ---
Anesthesia: Postop Eval I Current Vital Signs Temperature: 99 F Pulse Rate: 81 Blood Pressure: 100/60 Respiratory Rate: 16 Pulse Ox: 93 Oxygen Delivery Method: Room Air Assessment Airway patent: Yes Spontaneous unlabored respirations: Yes Mental status: Awake and Calm nausea: No Vomiting: No Anesthesia Complication: No Fluid Hydration Crystalloid volume administer (ml): 400 Total IV fluid infused: 400 Progress Note Anesthesia document: Postop Eval 1 completed: Yes
--- NOTE | 2025-02-22 11:20 | POSTOPAN2_ITS ---
Anesthesia Postop Eval I Sum Postop Eval Completion status Anesthesia document: Postop Eval 1 completed: Yes Anesthesia Postop Eval I Summary Anesthesia Postop Eval I Summary: Anesthesia Postop Eval I: Assessment Summary Airway patent Yes 02/22/25 08:15 VALLEZ FILTER [email or web address].[email or web address] Spontaneous unlabored Yes 02/22/25 08:15 VALLEZ FILTER OPERATOR.[email or web address] respirations Mental status Awake,Calm 02/22/25 08:15 VALLEZ FILTER OPERATOR.GDOTT nausea No 02/22/25 08:15 VALLEZ FILTER OPERATOR.[email or web address] Vomiting No 02/22/25 08:15 VALLEZ FILTER OPERATOR.[email or web address] Anesthesia Postop Eval I: Fluid Summary Crystalloid volume administer 400 02/22/25 08:15 VALLEZ FILTER OPERATOR.GDOTT (ml) Colloids volume administered ( ml) Blood Product volume administered (ml) Total IV fluid infused 400 02/22/25 08:15 VALLEZ FILTER OPERATOR.GDOTT Anesthesia Postop Eval I: Summary Notes Anesthesia Complication No 02/22/25 08:15 VALLEZ FILTER OPERATOR.GDOTT Anesthesia Complication Comment: Post-operative progress note Anesthesia: Postop Eval II Evaluation Mental status: Awake and Calm Pain Level: 0 nausea: No Vomiting: No Complications Anesthesia Complication: No
--- NOTE | 2025-02-22 11:20 | PCM.POSTANE2 ---
Anesthesia Postop Eval I Sum Postop Eval Completion status Anesthesia document: Postop Eval 1 completed: Yes Anesthesia Postop Eval I Summary Anesthesia Postop Eval I Summary: Anesthesia Postop Eval I: Assessment Summary Airway patent Yes 02/22/25 08:15 SOLID SURFACE FABRICATOR.GDOTT Spontaneous unlabored Yes 02/22/25 08:15 SOLID SURFACE FABRICATOR.GDOTT respirations Mental status Awake,Calm 02/22/25 08:15 SOLID SURFACE FABRICATOR.GDOTT nausea No 02/22/25 08:15 SOLID SURFACE FABRICATOR.GDOTT Vomiting No 02/22/25 08:15 SOLID SURFACE FABRICATOR.GDOTT Anesthesia Postop Eval I: Fluid Summary Crystalloid volume administer 400 02/22/25 08:15 SOLID SURFACE FABRICATOR.GDOTT (ml) Colloids volume administered ( ml) Blood Product volume administered (ml) Total IV fluid infused 400 02/22/25 08:15 SOLID SURFACE FABRICATOR.GDOTT Anesthesia Postop Eval I: Summary Notes Anesthesia Complication No 02/22/25 08:15 SOLID SURFACE FABRICATOR.GDOTT Anesthesia Complication Comment: Post-operative progress note Anesthesia: Postop Eval II Evaluation Mental status: Awake and Calm Pain Level: 0 nausea: No Vomiting: No Complications Anesthesia Complication: No
== END 2025-02-22 09:05 | disposition home or self-care (01) ==
LOC: EN 06:10 → AC 06:11
PROVIDERS: PCP Nurse Practitioner Family; Referring Provider Nurse Practitioner Family; Visit Provider Surgery
PROC: 0DJD8ZZ Inspection of Lower Intestinal Tract, Via Natural or Artificial Opening Endoscopic (ICD-10-PCS; CPT 45378; principal; 2025-02-22 07:25)
DX: K92.1 Melena (principal); J44.9 Chronic obstructive pulmonary disease, unspecified; E11.9 Type 2 diabetes mellitus without complications; Z87.891 Personal history of nicotine dependence; E78.00 Pure hypercholesterolemia, unspecified; Z79.84 Long term (current) use of oral hypoglycemic drugs; D50.9 Iron deficiency anemia, unspecified; Z79.890 Hormone replacement therapy; K21.9 Gastro-esophageal reflux disease without esophagitis; Z79.899 Other long term (current) drug therapy; E07.9 Disorder of thyroid, unspecified
CPT/HCPCS: 43235; G0121; J2405

== ENCOUNTER → 2025-02-24 | Outpatient (CLI) | payer MEDICARE, OTHER, SELFPAY | END | disposition home or self-care (01) | LOC: SL 11:35 | PROVIDERS: PCP Nurse Practitioner Family; Visit Provider Nurse Practitioner Acute Care | DX: Z46.89 Encounter for fitting and adjustment of other specified devices (principal) ==

== ENCOUNTER 2025-03-02 10:44 | Emergency (ER) | payer MEDICARE, OTHER, SELFPAY ==
[2025-03-02 10:44] VITALS: BP 104/86; PULSE 90; RESP 20; TEMP 36.6; O2SAT 97
[2025-03-02 10:52] VITALS: BMI 34.5
[2025-03-02 10:53] VITALS: O2SAT 93
--- NOTE | 2025-03-02 11:19 | RAD_ITS ---
PROCEDURE: CHEST 1 VIEW (PORTABLE) 03/02/2025 REASON FOR EXAM: DYSPNEA TECHNIQUE: Frontal view of the chest. COMPARISON: 07/02/2024 FINDINGS: Hardware: Stable appearance of a right subclavian port, EKG leads overlie the chest Heart: The heart size is normal. Lungs: Lungs are expanded with superimposed interstitial opacifications new since the previous study suggesting either pulmonary vascular congestion or a diffuse inflammatory process. Follow-up is recommended to ensure complete resolution Bones: Degenerative bony changes Other: RAD/Chest 1 View (Portable) IMPRESSION: Increased interstitial markings have developed since the previous study suggest ing pulmonary vascular congestion or a diffuse inflammatory process. Follow-up recommended to ensure complete resolution Reading Location: [facility]
--- NOTE | 2025-03-02 11:19 | EKG12_ITS ---
Test Reason : SOB Blood Pressure : */* mmHG Vent. Rate : 92 BPM Atrial Rate : 92 BPM P-R Int : 164 ms QRS Dur : 82 ms QT Int : 356 ms P-R-T Axes : 49 0 16 degrees QTcB Int : 440 ms Normal sinus rhythm Normal ECG Confirmed by Elias Plummer ([id number]), editor school photograph HAYDEN SPIVEY ([id number]) on 03/04/2025 7:15:20 AM Referred By: Confirmed By: Elias Plummer
--- NOTE | 2025-03-02 11:20 | ED.VIS.DYS ---
HPI History of Present Illness Chief Complaint: Shortness of Breath Detail of Chief Complaint: Cough and not feeling well Informant: patient and spouse/S.O. Narrative Narrative: Patient presents to the emergency department with complaint not feeling well for 2 days. She has developed a cough that at times productive of some brown phlegm. Denies fevers or chills or sweats. Patient denies recent travel or surgery. She denies chest pain. 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 No cardiac history. Patient works in [employer] and one of her clients was coughing on her the other day. [facility] Medical History Depression Anxiety Alcohol use Back pain Dietary restriction Rectal bleeding Shortness of breath on exertion Fatigue History of lipoma Right upper limb pain Drug induced neutropenia Hypomagnesemia Hypokalemia Diarrhea Encounter for chemotherapy management Encounter for education Wears glasses Wears dentures Post-menopausal Cancer Thyroid disease Diabetes Arthritis Anemia High cholesterol Gastric reflux Former smoker CPAP (continuous positive airway pressure) dependence Leg cramps History of edema History of echocardiogram History of stress test Regional lymph node metastasis present Primary fibromyalgia syndrome Chondromalacia Chronic obstructive lung disease Depression Hyperlipidemia Vitamin D deficiency Localized swelling, mass and lump, unspecified MARTELL (obstructive sleep apnea) Dyspnea Right ankle pain Home Medications ?Medication ?Instructions ?Recorded ?Last Taken ?Type lovastatin 40 mg tablet 40 mg PO QHS hld 11/25/13 02/21/25 History cholecalciferol (vitamin D3) 125 5,000 unit PO DAILY supplement 06/25/23 02/21/25 History mcg (5,000 unit) capsule levothyroxine 100 mcg tablet 100 mcg PO DAILY thyroid 06/25/23 02/21/25 History metformin 1,000 mg tablet 1,000 mg PO BID dm 06/25/23 02/21/25 History omeprazole 20 mg capsule,delayed 20 mg PO QDAY 08/30/24 02/21/25 History release albuterol sulfate 90 mcg/actuation 2 puff inhalation Q6H asthma #18 10/11/24 02/21/25 Rx aerosol inhaler (Ventolin HFA) grams L.acidophil,salivari-Bifido 1 cap PO BID 11/04/24 02/21/25 History bifidum-Strep thermoph 175 mg capsule BIPAP -Bilevel Positive Airway 02/24/25 Unknown History Pressure ([facility] INFORMATIONAL USE ONLY) fluticasone fur. 100 mcg-umeclid 1 inh inhalation QHS asthma #60 ea 02/24/25 Unknown Rx 62.5 mcg-vilant 25 mcg inhalat.powder (Trelegy Ellipta) Allergy/AdvReac Type Severity Reaction Status Date / Time vaccine adjuvant system, Allergy Rash Verified 03/02/25 10:44 AS01B liposomal (From Shingrix (PF)) varicella-zoster virus Allergy Rash Verified 03/02/25 10:44 glycoprotein E, recombinant (From Shingrix (PF)) Family History Mother Heart disease CVA (cerebral vascular accident) Brain tumor Father Cancer Stomach Heart disease Surgical History History of colonoscopy History of ankle surgery History of cataract extraction Social History Smoking Status: Former smoker quit date: 06/02/16 pack-years: 63 Tobacco: How many years used: 42 Electronic Cigarette Use: not used how long ago did patient quit smokin years second hand exposure: Yes quit status: quit date established alcohol intake: never substance use type: does not use ROS ROS ED Review of Systems ROS Unobtainable: other Constitutional Constitutional ED: Reports lethargy; Denies chills, fever(s), sweats or weight loss Eyes Eyes: Denies blurry vision, change in vision or diplopia ENT ENT ED: Denies rhinorrhea or sore throat Cardiovascular Cardiovascular: Denies chest pain, orthopnea or racing heartbeat Respiratory/Chest Respiratory/Chest: Reports cough, dyspnea and dyspnea on exertion; Denies orthopnea or sputum Gastrointestinal Gastrointestinal: Denies abdominal pain, diarrhea, nausea or vomiting Genitourinary Genitourinary ED: Denies dysuria, hematuria or urinary frequency Musculoskeletal Musculoskeletal: Denies arthralgias, back pain, myalgias or neck pain Integumentary Denies abscess, Abrasions or rash Neurologic Neurologic: Denies headache(s) or weakness Psychiatric Psychiatric: Denies anxiety, depression or suicidal thoughts Endocrine Endocrinology: Denies polydipsia, polyphagia or polyuria Hematologic/Lymphatic Hematologic/Lymphatic: Denies easy bleeding, easy bruising or lymphadenopathy Allergic/Immunologic Allergic/Immunologic ED: Denies mouth swelling, tongue swelling or urticaria EXAM Physical Exam Const Vital Signs: 03/02/25 10:44 03/02/25 10:53 03/02/25 11:34 Temperature 98 F Temperature Source Temporal Pulse Rate 90 Respiratory Rate 20 H Respiratory Effort Normal Short of Breath Blood Pressure 104/86 H Blood Pressure Mean 92 Pulse Ox 97 Oxygen Delivery Method Room Air Room Air 03/02/25 12:44 Temperature Temperature Source Pulse Rate 88 Respiratory Rate Respiratory Effort Blood Pressure 124/82 H Blood Pressure Mean 96 Pulse Ox Oxygen Delivery Method Positive well nourished and well developed General Appearance ED: well developed and NAD HEENT Reports TM's clear and moist mucous membranes normocephalic and atraumatic; Negative for trauma or tenderness Tympanic Membrane ED: Yes TM's clear Eyes PERRL and EOMs intact bilaterally General Eye ED: Negative for pale conjunctiva or scleral icterus Neck no lymphadenopathy, supple and no JVD General: Negative for tenderness Chest Wall inspection of chest normal and palpation of chest normal Chest: Negative for tenderness Resp normal respiratory effort and clear to auscultation bilaterally Effort and Inspection: Negative for respiratory distress or pain with movement Auscultation: Negative for rales, rhonchi, wheezes or diminished lung sounds Cardio regular rate, regular rhythm, S1 normal heart sound, S2 normal heart sound and no murmurs Peripheral Pulses: pulses 2+ throughout GI normal to inspection, nondistended, normoactive bowel sounds, soft to palpation, non-tender, non-distended and no masses Back/Spine no CVA tenderness and no thoracic nor lumbar tenderness Extremity normal to inspection Extremity Narrative: No edema on exam. General Extremety ED: Negative for edema General Extremity: Negative for edema Neuro oriented x3, CN's II-XII intact bilaterally, no sensory deficits noted and gait normal Sensorium / Orientation: awake, alert, oriented to person, oriented to place and oriented to time Motor Exam: strength 5/5 throughout and strength abnormal Psych mental status grossly normal Skin no rashes or lesions noted and no wounds MDM MDM MDM Narrative Medical decision making narrative: Patient presents with cough and some shortness of breath. She describes phlegm production. Will obtain labs as well as EKG and chest x-ray to evaluate for possible pneumonia versus viral infection. Will test for COVID flu and RSV. Suspicion for acute coronary syndrome low. No PE or DVT risk factors. Patient complains of generalized fatigue as well as cough. Clinically looks well. EKG obtained on arrival shows sinus rhythm with ventricular rate of 92 bpm with no acute ST segment changes. CBC with differential shows a white count of 8.4 with hemoglobin 12 and platelet count of 121. Chemistries unremarkable. Troponin normal at 7. BUN 17 and creatinine 0.83. 1 view chest x-ray obtained showed vascular congestion with no evidence of infiltrate or pneumothorax or acute disease process. Clinically suspicion low for CHF and she herself does not have a history of CHF. She does have history of sleep apnea. Lab Data Labs: Laboratory Results - last 24 hr 03/02/25 11:31 WBC 8.4 RBC 3.95 L Hgb 12.0 Hct 35.2 L MCV 89.1 MCH 30.4 MCHC 34.1 RDW Std Deviation 43.9 RDW Coeff of Jose Manule 13.3 Plt Count 121 L MPV 11.0 Immature Gran % (Auto) 2.600 H Neut % (Auto) 73.3 H Lymph % (Auto) 12.7 L Bledsoe % (Auto) 10.4 H Eos % (Auto) 0.5 Baso % (Auto) 0.5 Absolute Neuts (auto) 6.1 Absolute Lymphs (auto) 1.06 Nucleated RBC % 0.2 Sodium 135 Potassium 4.3 Chloride 100 Carbon Dioxide 20.0 L Anion Gap 15 BUN 17 Creatinine 0.83 Estim Creat Clear Calc 69.08 Est GFR (MDRD) Non-Af 76 BUN/Creatinine Ratio 20.2 H Glucose 138 H Calcium 9.9 Troponin T High Sens 7 Radiography Diagnostic Testing: Clinical Impression(s) from Imaging Studies Chest X-Ray 03/02/25 11:19 IMPRESSION: Increased interstitial markings have developed since the previous study suggesting pulmonary vascular congestion or a diffuse inflammatory process. Follow-up recommended to ensure complete resolution Reading Location: [id number] 1 view chest x-ray obtained interpreted by myself as increased markings bilaterally which may indicate vascular congestion. Radiology in agreement. There is no evidence of infiltrate or pneumothorax or acute disease process otherwise. EKG Initial EKG: Attestation: I personally reviewed and interpreted this EKG as follows: Comments: Sinus rhythm with ventricular rate of 92 bpm with no acute ST segment changes Discharge Plan Triage Chief Complaint: Shortness of Breath ED Provider: Mis Alas Dx/Rx/DC Orders Clinical Impression: Viral URI Instructions: ED URI, Viral, No Abx (Adult) Prescriptions: No Action cholecalciferol (vitamin D3) 125 mcg (5,000 unit) capsule 5,000 unit PO DAILY levothyroxine 100 mcg tablet 100 mcg PO DAILY Patient Comments: TAKE 1 TABLET BY MOUTH EVERY DAY metformin 1,000 mg tablet 1,000 mg PO BID Patient Comments: Take 1 tablet by mouth twice daily omeprazole 20 mg capsule,delayed release(DR/EC) 20 mg PO QDAY L.acidoph,saliva-B.bif-S.therm 175 mg capsule 1 cap PO BID Rx Instructions: Probiotic xalb-urm-biqjasd lovastatin 40 MG tablet 40 mg PO QHS Patient Comments: (DME) BIPAP -Bilevel Positive Airway Pressure ([facility] INFORMATIONAL USE ONLY) See Rx Instructions .ROUTE .MEDSUPPLY Rx Instructions: BiPAP DME- [employer] Mask- full face albuterol sulfate [Ventolin HFA] 90 mcg/actuation HFA aerosol inhaler 2 puff INHALATION Q6H Qty: 18 11RF Trelegy Ellipta 100-62.5-25 mcg blister with device 1 inh INHALATION QHS Qty: 60 11RF Primary Care Provider: Moriah Mott Referrals: Moriah Mott, PHOTOENGRAVING SUPERVISOR-C [Primary Care Provider, Family Practice] - 3-5 Days Print Language: Armenian Disposition Disposition: Home, Self Care
[2025-03-02 11:40] LABS: Hematocrit 35.2 % (37-47); Hemoglobin 12.0 g/dL (12.0-15.0); Immature Granulocytes Count 0.220 X10^3/uL (0.0-0.0); Mean Corp Hgb Conc 34.1 g/dL (32-36); Mean Corpuscular Volume 89.1 fL (81-99); Mean Platelet Vol. 11.0 fl (6.2-12.0); NRBC Flagged by Analyzer 0.2 % (0-5); Platelet Count 121 K/mm3 (150-450); RBC Distribution Width CV 13.3 % (11.6-14.6); RBC Distribution Width SD 43.9 fl (35.1-43.9); Red Blood Count 3.95 M/mm3 (4.2-5.4); White Blood Count 8.4 K/mm3 (4.4-11.0)
[2025-03-02 12:02] LABS: Anion Gap 15 (5-15); BUN 17 mg/dL (4-19); BUN/Creat Ratio 20.2 RATIO (10-20); Calcium,Total 9.9 mg/dL (7.6-11.0); Carbon Dioxide 20.0 mmol/L (21.0-32.0); Chloride 100 mmol/L (98-108); Estimated Creatinine Clearance 69.08 ml/min (50-250); Glucose 138 mg/dL (70-99); Potassium 4.3 mmol/L (3.3-5.1); Troponin T High Sensitivity 7 ng/L (<=14)
[2025-03-02 12:44] VITALS: BP 124/82; PULSE 88
[2025-03-02 13:44] LABS: Troponin T High Sens 2 HR 8 ng/L (<=14)
[2025-03-02 13:57] VITALS: BP 123/68; PULSE 85; RESP 17; TEMP 37; O2SAT 92; O2SAT 96
== END 2025-03-02 14:09 | disposition home or self-care (01) ==
PROVIDERS: Emergency Provider Emergency Medicine; PCP Nurse Practitioner Family; Visit Provider Emergency Medicine
DX: J06.9 Acute upper respiratory infection, unspecified (principal); I50.9 Heart failure, unspecified; E11.9 Type 2 diabetes mellitus without complications; G47.33 Obstructive sleep apnea (adult) (pediatric); Z87.891 Personal history of nicotine dependence
CPT/HCPCS: 36591; 71045; 80048; 84484; 85025; 87631; 93005; 99284; A4216

== ENCOUNTER 2025-03-15 03:45 | Inpatient (IN) | payer MEDICARE, OTHER, SELFPAY ==
[2025-03-15] VITALS (8 sets, daily range): BP systolic 105–126; BP diastolic 41–80; PULSE 77–90; RESP 16–25; TEMP 36.1–36.6; O2SAT 85–98; BMI 35.1
[2025-03-15 04:27] LABS: Hematocrit 39.4 % (37-47); Hemoglobin 12.9 g/dL (12.0-15.0); Mean Corp Hgb Conc 32.7 g/dL (32-36); Mean Corpuscular Volume 89.1 fL (81-99); POSITIVE COUNT YES; POSITIVE MORPHOLOGY YES; Platelet Count 76 K/mm3 (150-450); RBC Distribution Width CV 13.8 % (11.6-14.6); RBC Distribution Width SD 44.9 fl (35.1-43.9); Red Blood Count 4.42 M/mm3 (4.2-5.4); White Blood Count 10.1 K/mm3 (4.4-11.0)
[2025-03-15 04:28] LABS: Differential Indicated MANUAL DIFF
--- NOTE | 2025-03-15 04:33 | CT_ITS ---
PROCEDURE: CHEST WITHOUT CONTRAST 03/15/2025 REASON FOR EXAM: B/L RIB S/P FALL TECHNIQUE: Chest CT without contrast. Coronal and Sagittal reconstruction series were provided. One or more dose reduction techniques were used (e.g., Automated exposure control, adjustment of the mA and/or kV according to patient size, use of iterative reconstruction technique RADIATION DOSE SUMMARY: CTDlvol: 11.5 mGy DLP: 741.7 mGycm COMPARISON: 24-Dec-2024 FINDINGS: Newly developed widespread bilateral pulmonary nodules and mass 2-30 mm in diameter. Newly developed enlarged hilar and mediastinal lymph nodes. Stable left upper lung lobe reticulofibrotic scarring and atelectatic changes. Stable bilateral pulmonary atelectatic changes. The heart size is within normal. Vascular atheromatous calcifications No pleural or pericardial effusion. No definite mass lesion in the chest wall. Stable sternal and right 9th rib sclerotic areas. Intact bony thoracic cage with no fractures or osseous destruction. The examined vertebrae showing preserved height with no fracture of dislocation. Thoracic spondylosis. Stable right side ciro a cath. CT/Chest without Contrast IMPRESSION: Newly developed widespread bilateral pulmonary nodules, enlarged hilar and medi astinal lymph nodes, possibly metastatic. Intact bony thoracic cage with no fractures or osseous destruction. Stable rest of the study findings. Reading Location: [place] [id number]
--- NOTE | 2025-03-15 04:33 | CT_ITS ---
PROCEDURE: SPINE CERVICAL WITHOUT CONTRAS 03/15/2025 REASON FOR EXAM: FALL TECHNIQUE: Procedure Code: CTSPC Modality: CT Procedure: SPINE CERVICAL WITHOUT CONTRAS Coronal and Sagittal reconstruction series were provided. One or more dose reduction techniques were used (e.g., Automated exposure control, adjustment of the mA and/or kV according to patient size, use of iterative reconstruction technique. RADIATION DOSE SUMMARY: CTDI Vol 16.68 mGy DLP :323.70 mGycm COMPARISON: none FINDINGS: Straightened cervical curve denoting myospasm. Mild C4 and C6 anterolithesis. Old non united fracture of C7 spinous process. The examined vertebral bodies show no structural collapse or posterior neural elements acute fractures. Intact atlanto-axial interval. Degenerative changes of the atlanto-axial articulation with related capsular calcifications. Cervical spondylodegenerative changes evident by marginal osteophytic lipping and multilevel subchondral sclerosis of the examined vertebral end plates with multilevel disc spaces narrowing. Multilevel degenerative unco-vertebral arthropathy with osteophytes formation seen encroaching upon the corresponding neural exit foramina. Multilevel degenerative facet arthropathy. Multilevel anterior longitudinal ligament calcifications. Multilevel diffuse disc bulges with posterior osteophytes and annular calcifications indenting the theca and encroaching upon the related neural exit foramina. No paraspinal masses. Carotid atheromatous calcifications. Bilateral upper lung lobes apical reticulations. CT/Spine Cervical without Contras IMPRESSION: Straightened cervical curve denoting myospasm. Mild C4 and C6 anterolithesis. Old non united fracture of C7 spinous process. No acute vertebral fractures, structural collapse or dislocation. Cervical spondylodegenerative changes with multilevel uncovertebral and facet a rthropathy along with diffuse disc bulges inducing spinal canal and neural exit pathway compromise. Reading Location[facility]
--- NOTE | 2025-03-15 04:33 | CT_ITS ---
PROCEDURE: BRAIN/HEAD WITHOUT CONTRAST 03/15/2025 REASON FOR EXAM: FALL TECHNIQUE: Procedure Code: CTBR Modality: CT Procedure: BRAIN/HEAD WITHOUT CONTRAST Coronal and Sagittal reconstruction series were provided. One or more dose reduction techniques were used (e.g., Automated exposure control, adjustment of the mA and/or kV according to patient size, use of iterative reconstruction technique. RADIATION DOSE SUMMARY: CTDI Vol 44.99 mGy DLP :846.73 mGycm COMPARISON: 10-Feb-2025 MRI FINDINGS: Accentuated bilateral cerebral periventricular deep white matter hypodensities denoting hypoperfusion. Madden-white matter differentiation is maintained. Normal CT appearance of the posterior fossa structures. No intracerebral or extra axial hemorrhage. Dilated ventricular system, cortical sulci and extra-axial CSF spaces. No definite calvarial fractures. No midline shifts or deformity. 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 Bilateral mastoiditis. The osseous structures in the skull base are unremarkable. Paranasal sinuses are unremarkable. Vascular atheromatous calcifications. CT/Brain/Head without Contrast IMPRESSION: No acute cerebrovascular abnormalities. If clinical symptoms persist, further e valuation with MRI may be considered as clinically warranted. No intra or extra-axial acute hemorrhage. Bilateral cerebral microvascular ischemic changes with brain involutional sahu es. Stable. Reading Location[facility]
[2025-03-15 04:44] LABS: Ammonia 17.0 umol/L (11-51)
--- NOTE | 2025-03-15 04:44 | RAD_ITS ---
PROCEDURE: PELVIS 1 OR 2 VIEWS 03/15/2025 REASON FOR EXAM: FALL TECHNIQUE: Procedure Code: RADPEL Modality: DX Procedure: PELVIS 1 OR 2 VIEWS COMPARISON: None FINDINGS: Bones: No definite acute fracture. Joints: Bilateral hips and sacroiliac joints arthritic changes are seen. soft tissues: Faint calcificatioj is seen superior to right iliac bone. RAD/Pelvis 1 or 2 Views IMPRESSION: No definite acute fracture. Reading Location[facility]
[2025-03-15 04:50] LABS: AST(SGOT) 220 U/L (<=31); Alanine Aminotransfer ALT/SGPT 65 U/L (<=34); Albumin, Serum 3.8 g/dL (3.4-4.8); Alkaline Phosphatase 965 U/L (35-104); Anion Gap 20 (5-15); BUN 40 mg/dL (4-19); BUN/Creat Ratio 26.3 RATIO (10-20); Bilirubin, Direct 0.49 mg/dL (0.00-0.30); Calcium,Total 10.4 mg/dL (7.6-11.0); Carbon Dioxide 19.3 mmol/L (21.0-32.0); Chloride 95 mmol/L (98-108); Estimated Creatinine Clearance 38.53 ml/min (50-250); Globulin 3.2 g/dL (2.2-4.2); Glucose 170 mg/dL (70-99); Magnesium 2.4 mg/dL (1.5-2.2); Potassium 4.7 mmol/L (3.3-5.1)
[2025-03-15 05:08] LABS: CPK Total, Creatine Kinase 850 U/L (24-195); Pro- Brain NATRIURETIC PEPTIDE 349 pg/mL (<=900)
[2025-03-15 05:24] LABS: Neutrophil-Band 6 % (0-5); Neutrophil-Segmented 66 % (47-70); Nucleated Red Bld Cells,Manual 2 % (0-5); Total Cells Counted 100 (MANUAL DIFF)
[2025-03-15 05:27] LABS: Acanthocytes RARE; Anisocytosis 1+; Polychromasia 1+
[2025-03-15 05:43] LABS: Mucous, Urine 0 SEEN /hpf (<or=2+); Red Blood Cells-Urine 0 SEEN /hpf (0-5); Squamous Epithelial Cells - UA 0 SEEN /hpf (5-10)
[2025-03-15 05:49] LABS: Color, Urine Yellow (Yellow); Glucose, Dipstick Normal (Normal); Ketone-Dipstick Negative (Negative); Leukocyte Esterase-Dipstick Negative /ul (Negative); Nitrite-Dipstick Negative (Negative); Occult Blood-Urine Negative /ul (Negative); Protein-Dipstick 30 mg/dl (Negative); Specific Gravity, Urine 1.025 (1.002-1.030)
[2025-03-15 06:04] LABS: Barbiturate Urine NEGATIVE (< 200 ng/mL); Benzodiazepine Urine NEGATIVE (< 200 ng/mL); PCP Urine NEGATIVE (< 25 ng/mL); THC Urine NEGATIVE (< 50 ng/mL)
--- NOTE | 2025-03-15 06:04 | CT_ITS ---
PROCEDURE: ABDOMEN/PELVIS W IV CONT ONLY 03/15/2025 REASON FOR EXAM: ELEVATED LIVER ENZYMES History of small-cell lung cancer. TECHNIQUE: Procedure Code: [id number] Modality: CT Procedure: ABDOMEN/PELVIS W IV CONT ONLY Coronal and Sagittal reconstruction series were provided. CONTRAST: Isovue-300 VOLUME: 100 mL One or more dose reduction techniques were used (e.g., Automated exposure control, adjustment of the mA and/or kV according to patient size, use of iterative reconstruction technique. RADIATION DOSE SUMMARY: CTDlvol: 18.3 mGy DLP: 1110.24 mGycm COMPARISON: Prior study dated December 24, 2024. FINDINGS: Lung bases: Multiple pulmonary nodules are seen in both lung bases as compared to prior study. There is a new 3.9 cm x 2.1 cm hypodense mass adjacent to the left anterior pericardium. There is also evidence of enlargement of the right hilar lymph nodes. Liver: There now is evidence of multiple hypodense masses in both lobes of the liver suggestive of metastatic deposits. This was not seen on prior study. Gallbladder: Unremarkable Spleen: Normal size. Pancreas: Normal size without evidence of mass surrounding inflammation or ductal dilation. Adrenals: There is a new 2.5 cm hypodense mass in the right adrenal gland. Kidneys: Normal renal sizes. No hydronephrosis. Bladder: A Sierra catheter is seen within a decompressed urinary bladder. Reproductive Organs: Normal uterine size and contour. Ovaries are unremarkable. Bowel: Unremarkable gas pattern. Appendix: The appendix is not identified. There is no inflammatory process identified in the right lower quadrant to suggest appendicitis. Lymph nodes: Unremarkable. Vasculature: Mild diffuse atherosclerotic calcifications are noted. Peritoneum / Retroperitoneum: Unremarkable Bones: Mild degree of degenerative changes. CT/Abdomen/Pelvis W IV Cont ONLY IMPRESSION: Multiple pulmonary nodules as seen in the lung bases. Soft tissue mass in the anterior aspect of the left pericardium. Multiple liver metastasis and new right adrenal mass. Reading Location: [place] [address]
[2025-03-15] MEDS: 0.9% Normal Saline (1000mL) 1,000 ML 999 ML IV (06:12)
--- NOTE | 2025-03-15 06:15 | EDS_ITS ---
HPI History of Present Illness Chief Complaint: Fall Informant: patient, family and EMS Narrative Narrative: Patient is a 69-year-old female from home with past medical history of hyperlipidemia hypothyroidism COPD and known lung cancer. EMS states they were called to the patient's house secondary to need for lift assist. When they arrived they found the patient on the floor covered in stool and urine. The patient states that she has been having increased weakness over the past week or so and has been falling frequently. Family reports that they feel her speech has been slurred as well over the past week. Therefore with her increased weakness and bouts of confusion as well as the fact patient does not appear to be caring for self as she is covered in stool and feces she was brought to the ER for evaluation [facility] Medical History Depression Anxiety Alcohol use Back pain Dietary restriction Rectal bleeding Shortness of breath on exertion Fatigue History of lipoma Right upper limb pain Drug induced neutropenia Hypomagnesemia Hypokalemia Diarrhea Encounter for chemotherapy management Encounter for education Wears glasses Wears dentures Post-menopausal Cancer Thyroid disease Diabetes Arthritis Anemia High cholesterol Gastric reflux Former smoker CPAP (continuous positive airway pressure) dependence Leg cramps History of edema History of echocardiogram History of stress test Regional lymph node metastasis present Primary fibromyalgia syndrome Chondromalacia Chronic obstructive lung disease Depression Hyperlipidemia Vitamin D deficiency Localized swelling, mass and lump, unspecified MARTELL (obstructive sleep apnea) Dyspnea Right ankle pain Home Medications ?Medication ?Instructions ?Recorded ?Last Taken ?Type lovastatin 40 mg tablet 40 mg PO QHS hld 11/25/13 History cholecalciferol (vitamin D3) 125 5,000 unit PO DAILY s upplement 06/25/23 02/21/25 History mcg (5,000 unit) capsule levothyroxine 100 mcg tablet 100 mcg PO DAILY thyroid 06/25/23 02/21/25 History metformin 1,000 mg tablet 1,000 mg PO BID dm 06/25/23 02/21/25 History omeprazole 20 mg capsule,delayed 20 mg PO QDAY 08/30/ 5 02/21/25 History release albuterol sulfate 90 mcg/actuation 2 puff inhalation Q 6H asthma #18 10/11/24 02/21/25 Rx aerosol inhaler (Ventolin HFA) grams L.acidophil,salivari-Bifido 1 cap PO BID 11/04/242 07/27 History bifidum-Strep thermoph 175 mg capsule BIPAP -Bilevel Positive Airway 02/24/25 Unknown Histo ry Pressure ([facility] INFORMATIONAL USE ONLY) fluticasone fur. 100 mcg-umeclid 1 inh inhalation QHS asthma #60 ea 02/24/25 Unknown Rx 62.5 mcg-vilant 25 mcg inhalat.powder (Trelegy Ellipta) Allergy/AdvReac Type Severity Reaction Status Date / Time vaccine adjuvant system, Allergy Rash Verified 03/15/25 03:52 AS01B liposomal (From Shingrix (PF)) varicella-zoster virus Allergy Rash Verified 03/15/25 03:52 glycoprotein E, recombinant (From Shingrix (PF)) Family History Mother Heart disease CVA (cerebral vascular accident) Brain tumor Father Cancer Stomach Heart disease Surgical History History of colonoscopy History of ankle surgery History of cataract extraction Social History Smoking Status: Former smoker quit date: 06/02/16 pack-years: 63 Tobacco: How many years used: 42 Electronic Cigarette Use: not used how long ago did patient quit smokin years second hand exposure: Yes quit status: quit date established alcohol intake: never substance use type: does not use ROS ROS ED Constitutional Constitutional ED: Reports other Details: Positive fatigue ; Denies chills or fever(s) Eyes Eyes: Denies change in vision ENT ENT ED: Denies sore throat Cardiovascular Cardiovascular: Reports other Details: Negative syncope ; Denies chest pain, palpitations or racing heartbeat Respiratory/Chest Respiratory/Chest: Denies cough or dyspnea Gastrointestinal Gastrointestinal: Reports diarrhea; Denies abdominal pain, nausea or vomiting Genitourinary Genitourinary ED: Denies dysuria Musculoskeletal Musculoskeletal: Denies neck pain Integumentary Denies rash Neurologic Neurologic: Reports weakness; Denies headache(s) Hematologic/Lymphatic Hematologic/Lymphatic: Denies easy bleeding or easy bruising EXAM Physical Exam Const Vital Signs: 03/15/25 03:46 03/15/25 03:50 03/15/25 03:51 Temperature 97.4 F L Temperature Source Oral Pulse Rate 87 Respiratory Rate 25 H Respiratory Effort Normal Blood Pressure 120/49 L Blood Pressure Mean 72 Pulse Ox 85 Oxygen Delivery Method Room Air Nasal Cannula Room Air Oxygen Flow Rate (L/min) 2 03/15/25 05:56 03/15/25 07:00 Temperature Temperature Source Pulse Rate 86 77 Respiratory Rate 17 16 Respiratory Effort Blood Pressure Blood Pressure Mean Pulse Ox 98 98 Oxygen Delivery Method Oxygen Flow Rate (L/min) Positive well nourished and well developed General Appearance ED: well developed HEENT Reports dry mucous membranes HEENT Narrative: Normocephalic atraumatic No signs of depressed or basilar skull fracture No tongue or lip swelling no oral lesions no airway edema or compromise No tongue or cheek biting to suggest seizure activity No secondary findings in the posterior pharynx to suggest infection Mucous membranes are dry and tacky Mouth ED: Yes dry mucous membranes Mouth: dry mucous membranes Eyes PERRL and EOMs intact bilaterally General Eye ED: Yes pale conjunctiva; Negative for scleral icterus Neck supple Neck Narrative: No nuchal rigidity or meningeal signs No bony deformity or step-off of the cervical spine Chest Wall Chest Narrative: Chest wall stable without bony deformity or subcutaneous emphysema There is bilateral anterior lateral rib pain with palpation however along rib regions 6-10. No obvious bony deformity Resp normal respiratory effort Resp Narrative: Breath sounds are diminished throughout with faint rhonchi and expiratory wheeze consistent with history of COPD but no signs of respiratory distress Cardio regular rate and regular rhythm Rate: other Other Details: Radial and carotid pulses are equal and symmetric GI normal to inspection, nondistended, normoactive bowel sounds, non-tender, non-distended and no masses GI Narrative: No voluntary guarding or rigidity or pulsatile mass No peritoneal signs Auscultation: normoactive bowel sounds Palpation: soft Extremity Extremity Narrative: Pelvis is stable there is no shortening or external rotation of either lower extremity No signs of long bone injury such as bony deformity or joint effusion Compartments are soft and compressible going against compartment syndrome Patient is able to move all extremities Neuro oriented x3 and CN's II-XII intact bilaterally Neuro Narrative: GCS of 14 Patient is awake and alert to person place and time however she will answer questions and appropriately and this is consistent with confusion Cranial nerves II through XII are grossly intact The patient does have slurred speech but and therefore could have an NIH stroke scale scale of 1 secondary to mild dysarthria. However family reports this has been ongoing for a week or more Strength is diminished in both upper and lower extremities at a value of +3 but this is equal throughout Sensorium / Orientation: alert Psych Psych Narrative: Patient has a flat affect Skin Skin Narrative: Skin is discolored with slight jaundice and pallor but capillary refill remains less than 3 seconds No obvious wounds noted MDM MDM MDM Narrative Medical decision making narrative: Patient arrived to the ER normotensive and afebrile but was mildly hypoxic. She does have a known history of lung cancer and COPD and therefore was placed on just 2 L oxygen and her pulse ox improved. Based on the report of generalized weakness and recurrent falls there is concern for traumatic subarachnoid or subdural hemorrhage versus cervical compression fracture. There is also concern for rhabdomyolysis. Patient does have bilateral chest wall pain and with recurrent falls could have potential rib fracture or pneumothorax. CTs of the head and cervical spine were obtained which revealed no signs of acute trauma. CT of the chest revealed no pneumothorax or rib fracture but did document worsening pulmonary nodules consistent with metastasis. As the patient has known lung cancer and is no longer receiving treatment this is to be expected. The CPK is elevated 850 her creatinine is elevated at 1.5 and this is consistent with dehydration and mild rhabdomyolysis. Therefore she was started on IV fluid. Her liver enzymes are also elevated in order to assess for potential biliary colic versus acute cholecystitis versus metastatic liver disease versus gallstone pancreatitis a CT of the abdomen and pelvis was ordered. The patient's urine sample does show bacteria but there are no white cells and it is nitrite negative and therefore I do not feel the need to provide antibiotics especially as patient does not have leukocytosis and is afebrile. The urine will be sent for culture and antibiotics can be provided if it is positive. As her anion gap is elevated and her CO2 slightly down I did obtain a VBG but patient is not acidotic as her pH is 7.5 and her weakness and mild confusion is not related to hypercarbia as her CO2 is 26. At this time the patient is living at home she is having recurrent falls with worsening metastatic cancer load. I do not feel she is safe for returning to her living situation based on her mild confusion recurrent weakness and now patient having rhabdomyolysis. Therefore I feel the patient should be admitted where she can have a social work consult for potential rehab or care home placement as well as evaluation by PT/OT. At this time the formal read of her abdomen and pelvis CT is still pending as well as consultation with the hospitalist to discuss admission. Therefore the patient will be signed out to Dr. Guillen. History & Record Review Discussion w/independent historian: EMS personnel and Patient Lab Data Attestation: I reviewed the patient's lab results. Labs: Laboratory Results - last 24 hr 03/15/25 03/15/25 03/15/25 04:00 05:30 05:55 WBC 10.1 RBC 4.42 Hgb 12.9 Hct 39.4 MCV 89.1 MCH 29.2 MCHC 32.7 RDW Std Deviation 44.9 H RDW Coeff of Jose Manuel 13.8 Plt Count 76 L Neut % (Auto) Not Reportable Absolute Neuts (auto) 7.3 Absolute Lymphs (auto) 1.82 Total Counted 100 Neutrophils % (Manual) 66 Band Neutrophils % 6 H Lymphocytes % (Manual) 18 L Monocytes % (Manual) 5 Metamyelocytes % 4 H Myelocytes % 1 H Nucleated RBCs/100 WBC 2 Diff Path Review May foll Platelet Estimate SLT DEC Polychromasia 1+ Anisocytosis 1+ Acanthocytes (Spur) RARE Sodium 134 Potassium 4.7 Chloride 95 L Carbon Dioxide 19.3 L Anion Gap 20 H BUN 40 H Creatinine 1.50 H Estim Creat Clear Calc 38.53 L Est GFR (MDRD) Non-Af 37 L BUN/Creatinine Ratio 26.3 H Glucose 170 H Calcium 10.4 Magnesium 2.4 H Total Bilirubin 0.92 Direct Bilirubin 0.49 H AST 220 H ALT 65 H Alkaline Phosphatase 965 H Ammonia 17.0 Total Creatine Kinase 850 H NT pro BNP II 349 Total Protein 7.1 Albumin 3.8 Globulin 3.2 TSH 16.900 H Urine Color Yellow Urine Clarity Clear Urine pH 5.0 Ur Specific [place] 1.025 Urine Protein 30 H Urine Glucose (UA) Normal Urine Ketones Negative Urine Occult Blood Negative Urine Nitrite Negative Urine Bilirubin 1 H Urine Urobilinogen Normal Ur Leukocyte Esterase Negative Urine RBC 0 SEEN Urine WBC 0-5 SEEN Ur Squamous Epith Cells 0 SEEN Amorphous Sediment 4+ Urine Bacteria 3+ Urine Mucus 0 SEEN Urine Opiates Screen NEGATIVE U Buprenorphine Qual NEGATIVE Ur Oxycodone Screen NEGATIVE Urine Methadone Screen NEGATIVE Urine Fentanyl Screen NEGATIVE Ur Barbiturates Screen NEGATIVE Ur Phencyclidine Scrn NEGATIVE Ur Amphetamines Screen NEGATIVE U Benzodiazepines Scrn NEGATIVE Urine Cocaine Screen NEGATIVE U Cannabinoids Screen NEGATIVE Ethyl Alcohol < 10.1 ABG Data ABG results: ABG 03/15/25 06:55 Specimen Type MIGUELINA Sample Site Not entered VBG pH 7.53 H VBG pO2 60 H VBG HCO3 22 VBG Total CO2 23 VBG O2 Sat (Calc) 94 H VBG Base Excess 0 POC Mix VBG pCO2 Pt Tmp 26.4 L O2 Delivery Device Not entered Radiography Diagnostic Testing: Clinical Impression(s) from Imaging Studies Brain CT 03/15/25 04:33 IMPRESSION: No acute cerebrovascular abnormalities. If clinical symptoms persist, further evaluation with MRI may be considered as clinically warranted. No intra or extra-axial acute hemorrhage. Bilateral cerebral microvascular ischemic changes with brain involutional changes. Stable. Reading [facility] Cervical Spine CT 03/15/25 04:33 IMPRESSION: Straightened cervical curve denoting myospasm. Mild C4 and C6 anterolithesis. Old non united fracture of C7 spinous process. No acute vertebral fractures, structural collapse or dislocation. Cervical spondylodegenerative changes with multilevel uncovertebral and facet arthropathy along with diffuse disc bulges inducing spinal canal and neural exit pathway compromise. Reading [facility] 03/15/25 04:33 IMPRESSION: Newly developed widespread bilateral pulmonary nodules, enlarged hilar and mediastinal lymph nodes, possibly metastatic. Intact bony thoracic cage with no fractures or osseous destruction. Stable rest of the study findings. Reading [facility] Pelvis X-Ray 03/15/25 04:44 IMPRESSION: No definite acute fracture. Reading Location: [place] [id number] 1 view pelvis x-ray as interpreted by the emergency medicine physician reveals degenerative changes without acute fracture or dislocation Discharge Plan Dx/Rx/DC Orders Clinical Impression: Adult failure to thrive, Debility, Rhabdomyolysis, Metastatic lung cancer (metastasis from lung to other site), Elevated liver enzymes Disposition Disposition: [facility]
[2025-03-15 06:34] LABS: Urine Bilirubin Dipstick 1 mg/dL (Negative)
[2025-03-15 06:35] LABS: Alcohol, Blood (Medical)-Serum < 10.1 mg/dL (<=10.0)
[2025-03-15 06:59] LABS: SITE Not entered; VBG BASE EXCESS 0 mmol/L (-1.0-3.5); VBG PO2 60 mmHg (25-40); VBG SO2 94 % (50-70); VBG TCO2 23 mmol/L (23-33)
--- NOTE | 2025-03-15 10:34 | PCM.HP.STD ---
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 Per patient both she and her had been down with an upper respiratory tract infection suspected to be viral seen in the ED almost 2 weeks prior to her admission. She has since experienced progressive generalized weakness and apparently fell on the morning of her presentation. The EMS squad was called patient was found laying on the floor. Initial assessment was that patient was confused however patient has lasted the patient was at her baseline. Was transferred to the ED found to be in acute kidney injury admitted as a case of adult failure to thrive to regular nursing floor [facility] Medical History Depression Anxiety Alcohol use Back pain Dietary restriction Rectal bleeding Shortness of breath on exertion Fatigue History of lipoma Right upper limb pain Drug induced neutropenia Hypomagnesemia Hypokalemia Diarrhea Encounter for chemotherapy management Encounter for education Wears glasses Wears dentures Post-menopausal Cancer Thyroid disease Diabetes Arthritis Anemia High cholesterol Gastric reflux Former smoker CPAP (continuous positive airway pressure) dependence Leg cramps History of edema History of echocardiogram History of stress test Regional lymph node metastasis present Primary fibromyalgia syndrome Chondromalacia Chronic obstructive lung disease Depression Hyperlipidemia Vitamin D deficiency Localized swelling, mass and lump, unspecified MARTELL (obstructive sleep apnea) Dyspnea Right ankle pain Home Medications ?Medication ?Instructions ?Recorded ?Last Taken ?Type lovastatin 40 mg tablet 40 mg PO QHS hld 11/25/13 02/21/25 History cholecalciferol (vitamin D3) 125 5,000 unit PO DAILY supplement 06/25/23 02/21/25 History mcg (5,000 unit) capsule levothyroxine 100 mcg tablet 100 mcg PO DAILY thyroid 06/25/23 02/21/25 History metformin 1,000 mg tablet 1,000 mg PO BID dm 06/25/23 02/21/25 History omeprazole 20 mg capsule,delayed 20 mg PO QDAY 08/30/24 02/21/25 History release albuterol sulfate 90 mcg/actuation 2 puff inhalation Q6H asthma #18 10/11/24 02/21/25 Rx aerosol inhaler (Ventolin HFA) grams L.acidophil,salivari-Bifido 1 cap PO BID 11/04/24 02/21/25 History bifidum-Strep thermoph 175 mg capsule BIPAP -Bilevel Positive Airway 02/24/25 Unknown History Pressure ([facility] USE ONLY) fluticasone fur. 100 mcg-umeclid 1 inh inhalation QHS asthma #60 ea 02/24/25 Unknown Rx 62.5 mcg-vilant 25 mcg inhalat.powder (Trelegy Ellipta) Allergy/AdvReac Type Severity Reaction Status Date / Time vaccine adjuvant system, Allergy Rash Verified 03/15/25 03:52 AS01B liposomal (From Shingrix (PF)) varicella-zoster virus Allergy Rash Verified 03/15/25 03:52 glycoprotein E, recombinant (From Shingrix (PF)) Family History Mother Heart disease CVA (cerebral vascular accident) Brain tumor Father Cancer Stomach Heart disease Surgical History History of colonoscopy History of ankle surgery History of cataract extraction Social History Smoking Status: Former smoker quit date: 06/02/16 pack-years: 63 Tobacco: How many years used: 42 Electronic Cigarette Use: not used how long ago did patient quit smokin years second hand exposure: Yes quit status: quit date established alcohol intake: never substance use type: does not use ROS ROS Narrative GENERAL: Generalized weakness HEENT: denies headache, sinus congestion, RESPIRATORY: denies cough, sputum production, CARDIAC: denies chest pain, palpitations, orthopnea, PND GASTROINTESTINAL: denies abdominal pain, nausea, vomiting, melena, GENITOURINARY: denies dysuria, urgency, frequency, heamaturia EXTREMITY: denies swelling MUSCULOSKELETAL: denies current joint pain or tenderness NEUROLOGIC: denies focal numbness, weakness, tingling HEMATOLOGIC: denies easy bruising and/or hemorrhage INTEGUMENT: denies rashes PSYCHIATRIC: denies suicidal or homicidal ideation Vital Signs Vital Signs Vital Signs: 03/15/25 03:46 03/15/25 03:50 03/15/25 03:51 Temperature 97.4 F L Temperature Source Oral Pulse Rate 87 Respiratory Rate 25 H Respiratory Effort Normal Blood Pressure 120/49 L Blood Pressure Mean 72 Pulse Ox 85 Oxygen Delivery Method Room Air Nasal Cannula Room Air Oxygen Flow Rate (L/min) 2 03/15/25 05:56 03/15/25 07:00 03/15/25 09:00 Temperature Temperature Source Pulse Rate 86 77 78 Respiratory Rate 17 16 16 Respiratory Effort Blood Pressure 126/68 H Blood Pressure Mean 87 Pulse Ox 98 98 98 Oxygen Delivery Method Oxygen Flow Rate (L/min) Weight Weight: 92.8 kg Body Mass Index (BMI) 35.1 Physical Exam Narrative GENERAL: cooperative HEENT: Atraumatic; normocephalic EYES; Anicteric, Normal Conjunctiva NECK; supple, normal thyroid, RESPIRATORY: Diminished to auscultation CARDIOVASCULAR: Regular S1 S2, GI: soft, normoactive bowel sounds, : No Renal angle tenderness; EXTREMITIES: No edema, no clubbing, MUSCULOSKELETAL: no muscle wasting NEURO: Awake; no lateralizing signs. SKIN: No Rash PSYCH; Flat affect Results Lab / Micro Data 03/15/25 04:00 03/15/25 04:00 Labs: Laboratory Results - last 24 hr 03/15/25 04:00: WBC 10.1, RBC 4.42, Hgb 12.9, Hct 39.4, MCV 89.1, MCH 29.2, MCHC 32.7, RDW Std Deviation 44.9 H, RDW Coeff of Jose Manuel 13.8, Plt Count 76 L, Neut % (Auto) Not Reportable, Absolute Neuts (auto) 7.3, Absolute Lymphs (auto) 1.82, Total Counted 100, Neutrophils % (Manual) 66, Band Neutrophils % 6 H, Lymphocytes % (Manual) 18 L, Monocytes % (Manual) 5, Metamyelocytes % 4 H, Myelocytes % 1 H, Nucleated RBCs/100 WBC 2, Diff Path Review September foll, Platelet Estimate SLT DEC, Polychromasia 1+, Anisocytosis 1+, Acanthocytes (Spur) RARE, Sodium 134, Potassium 4.7, Chloride 95 L, Carbon Dioxide 19.3 L, Anion Gap 20 H, BUN 40 H, Creatinine 1.50 H, Estim Creat Clear Calc 38.53 L, Est GFR (MDRD) Non-Af 37 L, BUN/Creatinine Ratio 26.3 H, Glucose 170 H, Calcium 10.4, Magnesium 2.4 H, Total Bilirubin 0.92, Direct Bilirubin 0.49 H, AST 220 H, ALT 65 H, Alkaline Phosphatase 965 H, Ammonia 17.0, Total Creatine Kinase 850 H, NT pro BNP II 349, Total Protein 7.1, Albumin 3.8, Globulin 3.2, TSH 16.900 H 03/15/25 05:30: Urine Color Yellow, Urine Clarity Clear, Urine pH 5.0, Ur Specific Gilliam 1.025, Urine Protein 30 H, Urine Glucose (UA) Normal, Urine Ketones Negative, Urine Occult Blood Negative, Urine Nitrite Negative, Urine Bilirubin 1 H, Urine Urobilinogen Normal, Ur Leukocyte Esterase Negative, Urine RBC 0 SEEN, Urine WBC 0-5 SEEN, Ur Squamous Epith Cells 0 SEEN, Amorphous Sediment 4+, Urine Bacteria 3+, Urine Mucus 0 SEEN, Urine Opiates Screen NEGATIVE, U Buprenorphine Qual NEGATIVE, Ur Oxycodone Screen NEGATIVE, Urine Methadone Screen NEGATIVE, Urine Fentanyl Screen NEGATIVE, Ur Barbiturates Screen NEGATIVE, Ur Phencyclidine Scrn NEGATIVE, Ur Amphetamines Screen NEGATIVE, U Benzodiazepines Scrn NEGATIVE, Urine Cocaine Screen NEGATIVE, U Cannabinoids Screen NEGATIVE 03/15/25 05:55: Ethyl Alcohol < 10.1 ABG Data ABG results: ABG 03/15/25 06:55 Specimen Type MIGUELINA Sample Site Not entered VBG pH 7.53 H VBG pO2 60 H VBG HCO3 22 VBG Total CO2 23 VBG O2 Sat (Calc) 94 H VBG Base Excess 0 POC Mix VBG pCO2 Pt Tmp 26.4 L O2 Delivery Device Not entered Imaging Radiology Impression Brain CT 03/15/25 04:33 IMPRESSION: No acute cerebrovascular abnormalities. If clinical symptoms persist, further evaluation with MRI may be considered as clinically warranted. No intra or extra-axial acute hemorrhage. Bilateral cerebral microvascular ischemic changes with brain involutional changes. Stable. [facility] 03/15/25 04:33 IMPRESSION: Straightened cervical curve denoting myospasm. Mild C4 and C6 anterolithesis. Old non united fracture of C7 spinous process. No acute vertebral fractures, structural collapse or dislocation. Cervical spondylodegenerative changes with multilevel uncovertebral and facet arthropathy along with diffuse disc bulges inducing spinal canal and neural exit pathway compromise. Reading Location: [id number] Chest CT 03/15/25 04:33 IMPRESSION: Newly developed widespread bilateral pulmonary nodules, enlarged hilar and mediastinal lymph nodes, possibly metastatic. Intact bony thoracic cage with no fractures or osseous destruction. Stable rest of the study findings. Reading Location: [id number] Pelvis X-Ray 03/15/25 04:44 IMPRESSION: No definite acute fracture. Reading Location: [id number] Abdomen/Pelvis CT 03/15/25 06:04 IMPRESSION: Multiple pulmonary nodules as seen in the lung bases. Soft tissue mass in the anterior aspect of the left pericardium. Multiple liver metastasis and new right adrenal mass. Reading Location: [id number] Assessment & Plan Assessment/Plan (1) Adult failure to thrive: (2) IDA (acute kidney injury): (3) Acute metabolic encephalopathy: PLAN: Plan Patient is a 71-year-old female with history of small cell lung CA with regional lymph nodes metastasis presented to the emergency department with progressive generalized weakness 1. Adult failure to thrive ? 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 Acute kidney injury ?Patient's creatinine from 03/02/2025 was 0.83 creatinine on admission was 1.50 patient admitted to regular nursing floor started on IV fluids with subsequent monitoring of electrolytes ordered to assess response to therapy. Also ordered renal ultrasound to rule out obstructive uropathy. Will avoid potential nephrotoxic medications 3. Acute metabolic encephalopathy ? Secondary to above do expect improvement with treatment of the underlying etiology 4.. Metastatic lung CA ? Treated with chemoradiation currently on maintenance therapy with Durvalumab CT of the abdomen and pelvis obtained did show Multiple pulmonary nodules as seen in the lung bases.Soft tissue mass in the anterior aspect of the left pericardium. Multiple liver metastasis and new right adrenal mass. Patient is followed by oncology as outpatient. Also did place a consult for palliative care to discuss goals of care 5. Abnormal LFTs ? Secondary to liver mets monitoring with daily LFTs 6. Diabetes mellitus type II -patient's oral hypoglycemics held. Placed on long acting insulin, Accu-Cheks a.c. and at bedtime and covered with sliding scale insulin 7. Dyslipidemia ?Patient is on statin therapy, continued at home dose 8. GERD ? On PPI 9. Hypothyroidism ? Patient is on levothyroxine, patient TSH was however markedly elevated at 16.9?? Compliance 10.Thrombocytopenia ? Suspected to be secondary to chemo induced thrombocytopenia monitoring versus daily CBC with 11. COPD ? Currently not in exacerbation Jordyn treatment as needed 12. Obstructive sleep apnea ? On CPAP at night 13. DVT prophylaxis ? SCDs only given patient low platelet count Time spent in the patient's overall evaluation,decision-making process, review of diagnostic data, adjustment of management, discussion with other providers, nursing nursing and ancillary staff involved in patient's care documentation, 75 Minutes Advance planning; did discuss with the patient and family regarding advanced directives as well as CODE STATUS. Did explain the various scenarios involved ( FULL CODE, DNR CCA, DNR CCA with no intubation, and DNR CC and what each meant) patient elected remain full code with CPR and intubation if warranted. Order was placed. Time spent on discussion 16 minutes. Charges/Coding Multi Select Codes Visit Charges Visit Charges: 47021 Init Hosp Hospitalists' Procedures Procedures: 12744 Advncd Care Plan 30 Min
--- NOTE | 2025-03-15 11:19 | US_ITS ---
PROCEDURE: KIDNEY AND BLADDER 03/15/2025 REASON FOR EXAM: IDA. History of small cell lung cancer. Liver and lung metastases on CT. TECHNIQUE: Procedure Code: USKI Modality: US Procedure: KIDNEY AND BLADDER COMPARISON: CT Abdomen and Pelvis w/Contrast, 03/15/2025 FINDINGS: RIGHT KIDNEY Size: Normal measuring 10.0 cm in length. Echogenicity: Normal. Parenchymal thickness: Normal. Hydronephrosis: None. Calculi: None. Cysts: None. Solid masses: None. LEFT KIDNEY Size: Normal measuring 10.4 cm in length. Echogenicity: Normal. Parenchymal thickness: Normal. Hydronephrosis: None. Calculi: None. Cysts: None. Solid masses: None. BLADDER: Sierra decompressed urinary bladder, limiting its evaluation. The ureteral jets are not visualized bilaterally. OTHER: Heterogeneous liver with a 3.7 x 2.8 x 3.9 cm hypoechoic lesion with internal vascularity. US/Kidney and Bladder IMPRESSION: 1. Normal sonographic appearance of the kidneys. 2. Heterogeneous liver with hypoechoic lesion, likely related to patient's met astatic disease. Reading Location: [id number]
--- NOTE | 2025-03-15 11:52 | CON.PCM.PA_ITS ---
FORMERLY [facility] Medical History Depression Anxiety Alcohol use Back pain Dietary restriction Rectal bleeding Shortness of breath on exertion Fatigue History of lipoma Right upper limb pain Drug induced neutropenia Hypomagnesemia Hypokalemia Diarrhea Encounter for chemotherapy management Encounter for education Wears glasses Wears dentures Post-menopausal Cancer Thyroid disease Diabetes Arthritis Anemia High cholesterol Gastric reflux Former smoker CPAP (continuous positive airway pressure) dependence Leg cramps History of edema History of echocardiogram History of stress test Regional lymph node metastasis present Primary fibromyalgia syndrome Chondromalacia Chronic obstructive lung disease Depression Hyperlipidemia Vitamin D deficiency Localized swelling, mass and lump, unspecified MARTELL (obstructive sleep apnea) Dyspnea Right ankle pain Home Medications ?Medication ?Instructions ?Recorded ?Last Taken ?Type lovastatin 40 mg tablet 40 mg PO QHS hld 11/25/13 History cholecalciferol (vitamin D3) 125 5,000 unit PO DAILY s upplement 06/25/23 02/21/25 History mcg (5,000 unit) capsule levothyroxine 100 mcg tablet 100 mcg PO DAILY thyroid 06/25/23 02/21/25 History metformin 1,000 mg tablet 1,000 mg PO BID dm 06/25/23 02/21/25 History omeprazole 20 mg capsule,delayed 20 mg PO QDAY 5 02/21/25 History release albuterol sulfate 90 mcg/actuation 2 puff inhalation Q 6H asthma #18 10/11/24 02/21/25 Rx aerosol inhaler (Ventolin HFA) grams L.acidophil,salivari-Bifido 1 cap PO BID 11/04/2402/01 History bifidum-Strep thermoph 175 mg capsule BIPAP -Bilevel Positive Airway 02/24/25 Unknown Histo ry Pressure ([facility] INFORMATIONAL USE ONLY) fluticasone fur. 100 mcg-umeclid 1 inh inhalation QHS asthma #60 ea 02/24/25 Unknown Rx 62.5 mcg-vilant 25 mcg inhalat.powder (Trelegy Ellipta) Allergy/AdvReac Type Severity Reaction Status Date / Time vaccine adjuvant system, Allergy Rash Verified 03/15/25 03:52 AS01B liposomal (From Shingrix (PF)) varicella-zoster virus Allergy Rash Verified 03/15/25 03:52 glycoprotein E, recombinant (From [employer] (PF)) Family History Mother Heart disease CVA (cerebral vascular accident) Brain tumor Father Cancer Stomach Heart disease Surgical History History of colonoscopy History of ankle surgery History of cataract extraction Social History Smoking Status: Former smoker quit date: 06/02/16 pack-years: 63 Tobacco: How many years used: 42 Electronic Cigarette Use: not used how long ago did patient quit smokin years second hand exposure: Yes quit status: quit date established alcohol intake: never substance use type: does not use ROS ROS Narrative limited RT mental status Review of Systems ROS Unobtainable: due to mental status Constitutional Constitutional: Reports lethargy and malaise Eyes Eyes: Reports as per HPI ENT HEENT: Reports as per HPI Cardiovascular Cardiovascular: Reports dyspnea, dyspnea at rest and fatigue Respiratory/Chest Respiratory/Chest: Reports cough and dyspnea Gastrointestinal Gastrointestinal: Reports systems reviewed and no addt'l complaints, except as documented Genitourinary Genitourinary: Reports systems reviewed and no addt'l complaints, except as documented Musculoskeletal Musculoskeletal: Reports as per HPI Integumentary Integumentary: Reports as per HPI Neurologic Neurologic: Reports as per HPI Psychiatric Psychiatric: Reports as per HPI Endocrine Endocrinology: Reports as per HPI Hematologic/Lymphatic Hematologic/Lymphatic: Reports as per HPI Allergic/Immunologic Allergic/Immunologic: Reports as per HPI Physical Exam Const alert Constitutional Narrative: oriented x 2 General Appearance: cooperative Orientation / Consciousness: confused Lymph Lymphatic: lymphadenopathy Resp Effort and Inspection: tachypneic Auscultation: crackles and diminished lung sounds Cardio regular rate, S1 normal heart sound and S2 normal heart sound GI normal to inspection, nondistended, normoactive bowel sounds Extremity normal capillary refill Neuro Neuro Narrative: some expressive aphasia Psych Mood & Affect: flat affect Charges/Coding Palliative Care Palliative Care: 24915 New Pt Consult 80+ min HPI Current admission Current Code Status: changed to DNRCC-A no intubation Associated Diagnosis: metastatic lung CA Consult Data Date of Consult: 03/15/25 Location of consult: PCU Reason for referral: GOC, ode status Referral source: Physician Palliative care diagnosis (Summary list): Metastatic small call lung CA with mets to lymph nodes and possible Liver Palliative care services/treatment (Accepted, as consult): accepted Case discussed with referring provider: family requesting palliative outpatient with [facility] HPI Narrative HPI Narrative: PAIN ASSESSMENT denies at this time Prior to meeting with the patient at bedside I reviewed documentation labs and radiological studies. I then met with the patient, Agustín at bedside. I introduced myself and the concept of palliative care in which she voluntarily excepted our services. Andrea did have intermittent bouts of confusion in which she stated it was okay for me to contact her to go update him. We briefly discussed the patient's goals of care in which she stated that she would like me to contact from. We also discussed CODE STATUS in which she did indicate that she would not want CPR or to be placed on life support but she did state that she would like me to contact Makayla to confirm. Makayla did endorse DNRCC-A no intubation. Pt is alert and oriented to person and place as hospital and she was able to tell me that the year was 2024. She did have difficulty getting her words out. I then called Makayla at home in which there was a nurse from home health care doing his admission for home health. She was helpful in speaking to Makayla. Patient's niece was also there, Oksana who was involved in the conversation. We did discuss goals of care going forward and the possibility of, at the very least, the patient receiving palliative care services in which they did state that they were open to. They did state that they do not want to consider hospice quite yet as they would like this to have oncology weigh in prior to making that decision. I did update Dr. Girard about family request. He states he does plan to perform an MRI, once kidney function has improved. ALl questions were answered. Palliative care will continue to follow for goals of care as clinical picture evolves. per Dr. 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 Per patient both she and her had been down with an upper respiratory tract infection suspected to be viral seen in the ED almost 2 weeks prior to her admission. She has since experienced progressive generalized weakness and apparently fell on the morning of her presentation. The EMS squad was called patient was found laying on the floor. Initial assessment was that patient was confused however patient has lasted the patient was at her baseline. Was transferred to the ED found to be in acute kidney injury admitted as a case of adult failure to thrive to regular nursing floor Palliative Assessment Advanced Directive - Current Admission Advance Directive: Advance Directive ON ADMISSION - REFERENCE 3 Do you have a Healthcare No 03/15/25 03:50 Living Will? Do you have a Healthcare Power No 03/15/25 03:50 of Cold Rolling Machine Setter? Do You Want Additional Declined 03/15/25 03:50 Information on Advanced Directives or Healthcare Proxy/DPOA comments: Makayla and Son Davon Psychosocial/Spiritual Information Living situation/Marital status: [place] Supports: family Anabaptist/Gertrudis or spiritual preference: jainism Spiritual distress: none Prior functional status: needs assistance Assistive devices at home: walker Information about the patient as a person: pt enjoys spending time with family and watching TV Symptoms Palliative performance scale: 20-30% Palliative prognostic index: 11.0 (if PPI is > 6.0 survival is < 3 weeks) Dyspnea symptoms: Moderate Depression symptoms: Mild Fatigue symptoms: Moderate Weakness symptoms: Moderate Confusion symptoms: Moderate Objective Data Objective Data Vital Signs: Vital Signs Temp Pulse Resp BP Pulse Ox O2 Del Method O2 Flow Rate 97.8 F 83 20 H 112/80 94 Nasal Cannula 2 03/15/25 11:30 03/15/25 11:30 03/15/25 11:30 03/15/25 11:30 03/15/25 11:30 03/15/25 11:30 03/15/25 11:30 Oxygen Flow Rate (L/min) 2 Oxygen Delivery Method Nasal Cannula Weight: 204 lb 9.423 oz Body Mass Index (BMI) 35.1 Lab / Micro Data Attestation: I reviewed the patient's lab results. 03/15/25 04:00 03/15/25 04:00 Labs: Laboratory Results - last 24 hr 03/15/25 04:00: WBC 10.1, RBC 4.42, Hgb 12.9, Hct 39.4, MCV 89.1, MCH 29.2, MCHC 32.7, RDW Std Deviation 44.9 H, RDW Coeff of Jose Manuel 13.8, Plt Count 76 L, Neut % (Auto) Not Reportable, Absolute Neuts (auto) 7.3, Absolute Lymphs (auto) 1.82, Total Counted 100, Neutrophils % (Manual) 66, Band Neutrophils % 6 H, L ymphocytes % (Manual) 18 L, Monocytes % (Manual) 5, Metamyelocytes % 4 H, M yelocytes % 1 H, Nucleated RBCs/100 WBC 2, Diff Path Review September, Platelet Estimate SLT DEC, Polychromasia 1+, Anisocytosis 1+, Acanthocytes (Spur) RARE, Sodium 134, Potassium 4.7, Chloride 95 L, Carbon Dioxide 19.3 L, Anion Gap 20 H, BUN 40 H, Creatinine 1.50 H, Estim Creat Clear Calc 38.53 L, Est GFR (MDRD) Non- Af 37 L, BUN/Creatinine Ratio 26.3 H, Glucose 170 H, Calcium 10.4, Magnesium 2.4 H, Total Bilirubin 0.92, Direct Bilirubin 0.49 H, AST 220 H, ALT 65 H, Alkaline Phosphatase 965 H, Ammonia 17.0, Total Creatine Kinase 850 H, NT pro BNP II 349, Total Protein 7.1, Albumin 3.8, Globulin 3.2, TSH 16.900 H 03/15/25 05:30: Urine Color Yellow, Urine Clarity Clear, Urine pH 5.0, Ur Specific [place] 1.025, Urine Protein 30 H, Urine Glucose (UA) Normal, Urine Ketones Negative, Urine Occult Blood Negative, Urine Nitrite Negative, Urine Bilirubin 1 H, Urine Urobilinogen Normal, Ur Leukocyte Esterase Negative, Urine RBC 0 SEEN, Urine WBC 0-5 SEEN, Ur Squamous Epith Cells 0 SEEN, Amorphous Sediment 4+, Urine Bacteria 3+, Urine Mucus 0 SEEN, Urine Opiates Screen NEGATIVE, U Buprenorphine Qual NEGATIVE, Ur Oxycodone Screen NEGATIVE, Urine Methadone Screen NEGATIVE, Urine Fentanyl Screen NEGATIVE, Ur Barbiturates Screen NEGATIVE, Ur Phencyclidine Scrn NEGATIVE, Ur Amphetamines Screen NEGATIVE, U Benzodiazepines Scrn NEGATIVE, Urine Cocaine Screen NEGATIVE, U Cannabinoids Screen NEGATIVE 03/15/25 05:55: Ethyl Alcohol < 10.1 ABG Data ABG results: ABG 03/15/25 06:55 Specimen Type MIGUELINA Sample Site Not entered VBG pH 7.53 H VBG pO2 60 H VBG HCO3 22 VBG Total CO2 23 VBG O2 Sat (Calc) 94 H VBG Base Excess 0 POC Mix VBG pCO2 Pt Tmp 26.4 L O2 Delivery Device Not entered Radiography Diagnostic Testing: Radiology Impression Brain CT 03/15/25 04:33 IMPRESSION: No acute cerebrovascular abnormalities. If clinical symptoms persist, further evaluation with MRI may be considered as clinically warranted. No intra or extra-axial acute hemorrhage. Bilateral cerebral microvascular ischemic changes with brain involutional changes. Stable. Reading Location: [place] [address] 03/15/25 04:33 IMPRESSION: Straightened cervical curve denoting myospasm. Mild C4 and C6 anterolithesis. Old non united fracture of C7 spinous process. No acute vertebral fractures, structural collapse or dislocation. Cervical spondylodegenerative changes with multilevel uncovertebral and facet arthropathy along with diffuse disc bulges inducing spinal canal and neural exit pathway compromise. Reading [facility] Chest CT 03/15/25 04:33 IMPRESSION: Newly developed widespread bilateral pulmonary nodules, enlarged hilar and mediastinal lymph nodes, possibly metastatic. Intact bony thoracic cage with no fractures or osseous destruction. Stable rest of the study findings. Reading Location: [place] [address] Pelvis X-Ray 03/15/25 04:44 IMPRESSION: No definite acute fracture. Reading [facility] Abdomen/Pelvis CT 03/15/25 06:04 IMPRESSION: Multiple pulmonary nodules as seen in the lung bases. Soft tissue mass in the anterior aspect of the left pericardium. Multiple liver metastasis and new right adrenal mass. Reading Location: [facility] [place] Impressions & Recommendations Patient & Family Issues discussed with the patient and family: goals of care Patient goal: unable to meaningfully participate Family goal: code status change and wants to have Oncology weight in before making decisions Ethical & Legal Ethical and legal: may require POA involvement Impressions Impressions: pt is not able to make decisions for self, at this time. Recommentation Palliative recommendations: recommend a minimum of outpatient palliative or hospice Encouter Achieved as a result of this Palliative Care Encounter: [ [phone], [phone]] minutes were spent in total for this visit which consisted, primarily of counseling and education dealing with the complex and emotionally intense issues of symptom management and palliative care in the setting of serious and potentially life-threatening illness. Review of documentation, labs and radiological studies. ?Patient/family had the opportunity to ask questions Plan (1) Metastatic lung cancer (metastasis from lung to other site): PLAN: *family requesting weigh in from oncology prior to making any further decisions (2) Elevated liver enzymes: (3) IDA (acute kidney injury): (4) Adult failure to thrive: (5) Palliative care encounter: PLAN: * change of code status to DNRCC-A no intubation * recommended outpatient hospice or palliative care (6) Goals of care, counseling/discussion: PLAN: *wants to find out what options they have left, given current prognosis
[2025-03-15] MEDS: Lactated Ringers 1,000 ML 125 ML IV ×2 (12:41→21:25)
[2025-03-15 14:45] LABS: Prothrombin Time (Protime)PT. 16.0 SECONDS (11.7-14.9)
[2025-03-15 14:46] LABS: Partial Thromboplast Time 28.0 Seconds (24.1-36.2)
[2025-03-16] VITALS (15 sets, daily range): BP systolic 99–134; BP diastolic 62–81; PULSE 86–100; RESP 18–20; TEMP 36.2–36.9; O2SAT 91–96
[2025-03-16 05:35] LABS: Hematocrit 36.7 % (37-47); Hemoglobin 12.0 g/dL (12.0-15.0); Mean Corp Hgb Conc 32.7 g/dL (32-36); Mean Corpuscular Volume 88.9 fL (81-99); Mean Platelet Vol. 11.0 fl (6.2-12.0); POSITIVE COUNT YES; POSITIVE MORPHOLOGY YES; Platelet Count 54 K/mm3 (150-450); RBC Distribution Width CV 14.0 % (11.6-14.6); RBC Distribution Width SD 45.1 fl (35.1-43.9); Red Blood Count 4.13 M/mm3 (4.2-5.4); White Blood Count 5.6 K/mm3 (4.4-11.0)
[2025-03-16 05:36] LABS: Differential Indicated MANUAL DIFF
[2025-03-16] MEDS: Lactated Ringers 1,000 ML 125 ML IV (05:37)
[2025-03-16 06:02] LABS: Neutrophil-Band 7 % (0-5); Neutrophil-Segmented 72 % (47-70); Nucleated Red Bld Cells,Manual 2 % (0-5); Total Cells Counted 100 (MANUAL DIFF)
[2025-03-16 06:05] LABS: Magnesium 2.2 mg/dL (1.5-2.2)
[2025-03-16 06:10] LABS: Anion Gap 16 (5-15); BUN 29 mg/dL (4-19); BUN/Creat Ratio 24.7 RATIO (10-20); Calcium,Total 10.2 mg/dL (7.6-11.0); Carbon Dioxide 18.7 mmol/L (21.0-32.0); Chloride 99 mmol/L (98-108); Estimated Creatinine Clearance 48.32 ml/min (50-250); Glucose 102 mg/dL (70-99); Potassium 4.6 mmol/L (3.3-5.1)
[2025-03-16 06:21] LABS: Anisocytosis 1+; Polychromasia 1+
[2025-03-16 06:22] LABS: Acanthocytes RARE; Schistocytes RARE; Tear Drop Cell RARE
--- NOTE | 2025-03-16 08:34 | MRI_ITS ---
PROCEDURE: BRAIN WITHOUT CONTRAST 03/16/2025 REASON FOR EXAM: METASTATIC LUNG CA WITH CONFUSION TECHNIQUE: Procedure Code: MRIBR Modality: MR Procedure: BRAIN WITHOUT CONTRAST Multiplanar and multisequence images were obtained. COMPARISON: 02/10/2025. FINDINGS: Mild global parenchymal atrophy. Periventricular white matter T2/FLAIR hyperintense foci likely representing mild chronic microvascular ischemia. No evidence of acute hemorrhage or infarction. No extra-axial blood or fluid collections. The paranasal sinuses and mastoid air cells are clear. Study is moderately limited by motion. Suboptimal assessment for intracranial metastases without intravenous contrast but given recent MRI with contrast new metastatic disease is unlikely. MRI/Brain without Contrast IMPRESSION: No acute intracranial abnormality. Reading Location: [id number]
--- NOTE | 2025-03-16 08:35 | PN.HOSP_ITS ---
Reason for Visit Chief Complaint: Generalized weakness Subjective Subjective Patient is a 69-year-old lady with history of lung CA admitted with confusion. Patient was found to have acute kidney injury started on IV hydration admitted to regular nursing floor. Case was discussed with Dr. Merlos with oncology recommended for patient to undergo biopsy of 1 of lesion and subsequently ordered CT-guided biopsy of her liver lesions. Also ordered MRI of the brain with contrast to evaluate for possible brain mets given patient being encephalopathic at the time of admission Objective Data Objective Data Vital Signs: Vital Signs Temp Pulse Resp BP Pulse Ox O2 Del Method O2 Flow Rate 97.6 F L 92 18 102/66 94 Nasal Cannula 2 03/16/25 03:31 03/16/25 03:31 03/16/25 03:31 03/16/25 03:31 03/16/25 03:31 03/16/25 03:31 03/16/25 03:31 Oxygen Flow Rate (L/min) 2 Oxygen Delivery Method Nasal Cannula Weight: 87.5 kg Body Mass Index (BMI) 35.1 Intake & Output: Intake and Output for Last 24 Hours 03/14/25 03/15/25 03/16/25 23:59 23:59 23:59 Intake Total 2400 / 2400 1000 / 1000 Output Total 1100 / 1100 400 / 400 Balance 1300 / 1300 600 / 600 Lab / Micro Data 03/16/25 05:11 03/16/25 05:11 Labs: Laboratory Results - last 24 hr 03/15/25 12:36: POC Glucose 118 H 03/15/25 14:20: PT 16.0 H, INR 1.3, APTT 28.0 03/15/25 16:13: POC Glucose 144 H 03/15/25 21:23: POC Glucose 110 H 03/16/25 05:11: WBC 5.6, RBC 4.13 L, Hgb 12.0, Hct 36.7 L, MCV 88.9, MCH 29.1, MCHC 32.7, RDW Std Deviation 45.1 H, RDW Coeff of Jose Manuel 14.0, Plt Count 54 L, MPV 11.0, Neut % (Auto) Not Reportable, Absolute Neuts (auto) 4.4, Absolute Lymphs (auto) 0.28 L, Total Counted 100, Neutrophils % (Manual) 72 H, Band Neutrophils % 7 H, Lymphocytes % (Manual) 5 L, Monocytes % (Manual) 5, Eosinophils % (Manual) 4, Metamyelocytes % 6 H, Myelocytes % 1 H, Nucleated RBCs/100 WBC 2, Diff Path Review May foll, Platelet Estimate MOD DEC, Polychromasia 1+, Anisocytosis 1+, Tear Drop Cells RARE, Ovalocytes 2+, Acanthocytes (Spur) RARE, Schistocytes RARE, Sodium 135, Potassium 4.6, Chloride 99, Carbon Dioxide 18.7 L , Anion Gap 16 H, BUN 29 H, Creatinine 1.16, Estim Creat Clear Calc 48.32 L, Est GFR (MDRD) Non-Af 51 L, BUN/Creatinine Ratio 24.7 H, Glucose 102 H, Calcium 10.2, Phosphorus 3.1, Magnesium 2.2 03/16/25 06:20: POC Glucose 91 Radiography Diagnostic Testing: Radiology Impression Abdomen/Pelvis CT 03/15/25 06:04 IMPRESSION: Multiple pulmonary nodules as seen in the lung bases. Soft tissue mass in the anterior aspect of the left pericardium. Multiple liver metastasis and new right adrenal mass. Reading Location: [facility] Renal Ultrasound 03/15/25 11:19 IMPRESSION: 1. Normal sonographic appearance of the kidneys. 2. Heterogeneous liver with hypoechoic lesion, likely related to patient's metastatic disease. Reading Location: [facility] Physical Exam Narrative GENERAL: cooperative HEENT: Atraumatic; normocephalic EYES; Anicteric, Normal Conjunctiva NECK; supple, normal thyroid, RESPIRATORY: Diminished to auscultation CARDIOVASCULAR: Regular S1 S2, GI: soft, normoactive bowel sounds, : No Renal angle tenderness; EXTREMITIES: No edema, no clubbing, MUSCULOSKELETAL: no muscle wasting NEURO: Awake; no lateralizing signs. SKIN: No Rash PSYCH; Flat affect Assessment & Plan Assessment/Plan (1) Adult failure to thrive: (2) IDA (acute kidney injury): (3) Acute metabolic encephalopathy: PLAN: Plan Patient is a 71-year-old female with history of small cell lung CA with regional lymph nodes metastasis presented to the emergency department with progressive generalized weakness 1. Adult failure to thrive ? 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 Acute kidney injury ?Patient's creatinine from 03/02/2025 was 0.83 creatinine on admission was 1.50 patient admitted to regular nursing floor started on IV fluids with subsequent monitoring of electrolytes ordered to assess response to therapy. Also ordered renal ultrasound to rule out obstructive uropathy. Will avoid potential nephrotoxic medications 3. Acute metabolic encephalopathy ? Secondary to above do expect improvement with treatment of the underlying etiology ? 03/16/2025; ordered MRI of the brain with contrast to evaluate for possible mets 4.. Metastatic lung CA ? Treated with chemoradiation currently on maintenance therapy with Durvalumab CT of the abdomen and pelvis obtained did show Multiple pulmonary nodules as seen in the lung bases.Soft tissue mass in the anterior aspect of the left pericardium. Multiple liver metastasis and new right adrenal mass. Patient is followed by oncology as outpatient. Also did place a consult for palliative care to discuss goals of care ? 03/16/2025 Case was discussed with Dr. Merlos with oncology recommended for patient to undergo biopsy of 1 of lesion and subsequently ordered CT-guided biopsy of her liver lesions. Also ordered MRI of the brain with contrast to evaluate for possible brain mets given patient being encephalopathic at the time of admission 5. Abnormal LFTs ? Secondary to liver mets monitoring with daily LFTs 6. Diabetes mellitus type II -patient's oral hypoglycemics held. Placed on long acting insulin, Accu-Cheks a.c. and at bedtime and covered with sliding scale insulin 7. Dyslipidemia ?Patient is on statin therapy, continued at home dose 8. GERD ? On PPI 9. Hypothyroidism ? Patient is on levothyroxine, patient TSH was however markedly elevated at 16.9?? Compliance 10.Thrombocytopenia ? Suspected to be secondary to chemo induced thrombocytopenia monitoring versus daily CBC with 11. COPD ? Currently not in exacerbation, bronchodilator treatment as needed 12. Obstructive sleep apnea ? On CPAP at night 13. DVT prophylaxis ? SCDs only given patient low platelet count Time spent in the patient's overall evaluation,decision-making process, review of diagnostic data, adjustment of management, discussion with other providers, nursing nursing and ancillary staff involved in patient's care documentation, 50 minutes 03/16/2025; CODE STATUS changed to DNR CC without intubation following evaluation by palliative care Charges/Coding Visit Charges Inpatient E&M: 47821 Subs Hosp L3
--- NOTE | 2025-03-16 09:00 | ASPIGT_PTH ---
PATIENT: ANDREA CALIX LOC: [facility] U#:[id number] AGE/SX: 69/F ROOM: [facility] RE03/15/[address]: Dr. Jacoby Girard MD : [id number] BED: 1 DIS: 03/17/2025 SPEC #: [id number] RECD: 03/16/25 09:25 STATUS: SHANE BALDO #: [id number] LETI: 03/16/25 09:[address]: Jacoby Girard DEPT: SURGICAL PATHOLOGY RECD BY: Baldev Aguilar ENTERED: 03/16/25 10:38 SP TYPE: ASP RAD OTHR DR: Moriah Mtot, ROLLER SETTER-C Tissues: A - Liver, NOS Procedures: FNA Specimen Adequacy Immunohistochemical Stains Special Stain Group II Surgery Specimen Level V Imprint (control) IHC Stain ADDITIONAL HEADER OPERATION: CT guided liver biopsy PRE-OP DIAGNOSIS: Liver lesion TISSUE SUBMITTED: A- Liver biopsy - 18 gauge x 4 right lobe liver MICROSCOPIC DIAGNOSIS A. Liver, right lobe, CT-guided core biopsy: * High grade poorly-differentiated neuroendocrine carcinoma, consistent with metastasis - see note. * IHC performed - Positive: pankeratin, CK7, TTF-1 (weak), Synaptophysin, Ki67 (> 90%) Negative: CK20, CK5/6, p40, Napsin, Chromogranin Note: The stated history of small cell lung carcinoma is noted. The histology and immunophenotype of the current malignancy is compatible with that history. Clinical correlation is necessary. COMMENT The specimen is evaluated at the time of biopsy by Dr. Hatfield. Immediate Evaluation = Right lobe liver: 1. Malignant. Right lobe liver: 2. Malignant. MICROSCOPIC DESCRIPTION Slides are reviewed. All matched controls reacted appropriately. These tests were developed and their performance characteristics determined by [facility]. They may not have been cleared or approved by the U.S. Food and Drug Administration. The FDA has determined that such clearance or approval is not necessary. The above immunohistochemical markers and/or special stains have been reviewed by the Pathologist. GROSS DESCRIPTION A. Received in formalin labeled the patient's name and date of are 4 [place], somewhat fibrotic and friable tissue cores, 1.2 cm to 1.5 cm in length by 0.1 cm in diameter. Touch preparations are made. Entirely submitted in 2 cassettes. UT 03/16/2025 CPT:18785,[id number]
--- NOTE | 2025-03-16 09:00 | CT_ITS ---
PROCEDURE: BIOPSY/INJ OR NEEDLE PLACEMENT 03/16/2025 REASON FOR EXAM: METASTATIC LESION Liver metastasis. TECHNIQUE: The procedure as well as the benefits and possible complications including infection and bleeding were explained to the patient and the patient's has been. Informed consent was obtained. The patient was in the supine position. The overlying skin was prepped and draped in the usual sterile fashion. Following local anesthetic application, an 18 gauge core biopsy needle system was placed into the right lobe of the liver. 418 gauge core biopsies were obtained. Conscious sedation was performed. The patient received 2 mg of Versed and 50 mcg of fentanyl intravenously. Conscious sedation was started at 9:15 a.m. and terminated at 9:37. The patient was independently monitored by the department nurse. RADIATION DOSE SUMMARY: CTDlvol: 25.6 mGy DLP: 1323.37 mGycm COMPARISON: Prior examination dated March 15, 2025. FINDINGS: Successful CT-guided core biopsy of the liver. The specimen was deemed adequate by the pathologist. The patient tolerated the procedure well. CT/Biopsy/Inj or Needle Placement IMPRESSION: Successful CT-guided core biopsies of the right lobe of the liver as described. The patient tolerated the procedure well. No immediate complication noted. Reading [facility]
[2025-03-16] MEDS: Midazolam 2 MG/2 ML Syringe IV ×2 (09:15→09:24)
[2025-03-16] MEDS: 0.9% Normal Saline (250mL Bag) 250 ML 15 ML IV (09:15)
[2025-03-16] MEDS: fentaNYL 100 MCG/2 ML Ampul IV (09:16)
[2025-03-16] MEDS: Lidocaine 2% (20 ml mdv) 20 ML Vial INFILT (09:28)
--- NOTE | 2025-03-16 09:49 | CASEMGMT ---
Social Work SW attempted to meet with pt to complete assessment. Pt is out of room for procedure and two visitors are in the room. Visitors identify themselves as niece Oksana and sister in law Sweetie. Family states that pt is A&O x3 at baseline but is confused this morning and not answering questions appropriatly. SW inquired about pt's Sherif. Family states that Sherif is A&O x3 and will be in today after pt's procedure. SW will attempt to meet with Sherif when he comes in to complete pt's assessment. JOEY Mirza
--- NOTE | 2025-03-16 12:56 | PN.PALL_ITS ---
Subjective Subjective 03/16/25: Prior to meeting with the patient at bedside, I reviewed labs, documentation d radiological studies. I then met with Andrea in her room. She has just returned from having her biopsy and continues to be very groggy. Niece, Oksana is in the room. She is aware of the her Aunts current situation and was present yesterday for my phone conversation with Andrea's , Makayla. She did discuss family dynamics and the fact that they all know that Andrea is tired. I then contacted son/POADavon to update him on his mothers current status, CT scans and biopsy that was just completed. He states understanding that his mother is very confused and is considering the possibility of hospice. He was able to confirm availability at 1100am tomorrow for family meeting. I then contacted the pts , Makayla. He is also available for a family meeting. He is also considering hospice but wants to know the options as he is uncertain of resources for family assistance at home. He is wondering if the private insurance would cover any of the cost of a nursing facility, if needed. I did state that I would touch base with CM/SW to discuss concerns and have answers for them at the meeting tomorrow. All questions were answered. 03/15/25:Prior to meeting with the patient at bedside I reviewed documentation labs and radiological studies. I then met with the patient, Agustín at bedside. I introduced myself and the concept of palliative care in which she voluntarily excepted our services. Andrea did have intermittent bouts of confusion in which she stated it was okay for me to contact her to go update him. We briefly discussed the patient's goals of care in which she stated that she would like me to contact from. We also discussed CODE STATUS in which she did indicate that she would not want CPR or to be placed on life support but she did state that she would like me to contact Makayla to confirm. Makayla did endorse DNRCC-A no intubation. Pt is alert and oriented to person and place as hospital and she was able to tell me that the year was 2024. She did have difficulty getting her words out. I then called Makayla at home in which there was a nurse from home health care doing his admission for home health. She was helpful in speaking to Makayla. Patient's niece was also there, Oksana who was involved in the conversation. We did discuss goals of care going forward and the possibility of, at the very least, the patient receiving palliative care services in which they did state that they were open to. They did state that they do not want to consider hospice quite yet as they would like this to have oncology weigh in prior to making that decision. I did update Dr. Girard about family request. He states he does plan to perform an MRI, once kidney function has improved. ALl questions were answered. Palliative care will continue to follow for goals of care as clinical picture evolves. per Dr. 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 Per patient both she and her had been down with an upper respiratory tract infection suspected to be viral seen in the ED almost 2 weeks prior to her admission. She has since experienced progressive generalized weakness and apparently fell on the morning of her presentation. The EMS squad was called patient was found laying on the floor. Initial assessment was that patient was confused however patient has lasted the patient was at her baseline. Was transferred to the ED found to be in acute kidney injury admitted as a case of adult failure to thrive to regular nursing floor Objective Data Objective Data Vital Signs: Vital Signs Temp Pulse Resp BP Pulse Ox O2 Del Method O2 Flow Rate 98.4 F 94 18 109/69 96 Nasal Cannula 2 03/16/25 08:35 03/16/25 09:55 03/16/25 09:55 03/16/25 09:55 03/16/25 09:55 03/16/25 10:43 03/16/25 09:55 Oxygen Flow Rate (L/min) 2 Oxygen Delivery Method Nasal Cannula Weight: 192 lb 14.472 oz Body Mass Index (BMI) 35.1 Intake & Output: Intake and Output for Last 24 Hours 03/14/25 03/15/25 03/16/25 23:59 23:59 23:59 Intake Total 2400 / 2400 1701.5 / 1701.5 Output Total 1100 / 1100 400 / 400 Balance 1300 / 1300 1301.5 / 1301.5 Lab / Micro Data Attestation: I reviewed the patient's lab results. 03/16/25 05:11 03/16/25 05:11 Labs: Laboratory Results - last 24 hr 03/15/25 12:36: POC Glucose 118 H 03/15/25 14:20: PT 16.0 H, INR 1.3, APTT 28.0 03/15/25 16:13: POC Glucose 144 H 03/15/25 21:23: POC Glucose 110 H 03/16/25 05:11: WBC 5.6, RBC 4.13 L, Hgb 12.0, Hct 36.7 L, MCV 88.9, MCH 29.1, MCHC 32.7, RDW Std Deviation 45.1 H, RDW Coeff of Jose Manuel 14.0, Plt Count 54 L, MPV 11.0, Neut % (Auto) Not Reportable, Absolute Neuts (auto) 4.4, Absolute Lymphs (auto) 0.28 L, Total Counted 100, Neutrophils % (Manual) 72 H, Band Neutrophils % 7 H, Lymphocytes % (Manual) 5 L, Monocytes % (Manual) 5, Eosinophils % (Manual) 4, Metamyelocytes % 6 H, Myelocytes % 1 H, Nucleated RBCs/100 WBC 2, Diff Path Review May foll, Platelet Estimate MOD DEC, Polychromasia 1+, Anisocytosis 1+, Tear Drop Cells RARE, Ovalocytes 2+, Acanthocytes (Spur) RARE, Schistocytes RARE, Sodium 135, Potassium 4.6, Chloride 99, Carbon Dioxide 18.7 L , Anion Gap 16 H, BUN 29 H, Creatinine 1.16, Estim Creat Clear Calc 48.32 L, Est GFR (MDRD) Non-Af 51 L, BUN/Creatinine Ratio 24.7 H, Glucose 102 H, Calcium 10.2, Phosphorus 3.1, Magnesium 2.2 03/16/25 06:20: POC Glucose 91 Radiography Diagnostic Testing: Radiology Impression Renal Ultrasound 03/15/25 11:19 IMPRESSION: 1. Normal sonographic appearance of the kidneys. 2. Heterogeneous liver with hypoechoic lesion, likely related to patient's metastatic disease. Reading Location: [facility] Biopsy CT 03/16/25 09:00 IMPRESSION: Successful CT-guided core biopsies of the right lobe of the liver as described. The patient tolerated the procedure well. No immediate complication noted. Reading Location: [place] [id number] Physical Exam Const alert Constitutional Narrative: pt is S/P procedure and groggy General Appearance: cooperative Orientation / Consciousness: lethargic Exam Limitations: altered mental status HEENT normocephalic Neck full ROM Lymph Lymphatic: lymphadenopathy Resp Effort and Inspection: tachypneic Auscultation: diminished lung sounds Cardio regular rate, regular rhythm, S1 normal heart sound and S2 normal heart sound GI normal to inspection, nondistended, normoactive bowel sounds Back/Spine Back/Spine Narrative: unable to assess at this time Extremity normal to inspection Skin no rashes or lesions noted Neuro Neuro Narrative: pt currently sleeping s/p sedation for procedure Sensorium / Orientation: lethargic Psych Psych Narrative: unable to assess Mood & Affect: flat affect Charges/Coding Palliative Care Palliative Care: 22563 Follow up 50+ min Consulation Summary Current admission Current Code Status: DNRCC-A, No intubation Associated Diagnosis: metastatic lung CA Consult Data Date of Consult: 03/15/25 Location of consult: PCU Reason for referral: GOC, ode status Referral source: Physician Palliative care diagnosis (Summary list): Metastatic small call lung CA with mets to lymph nodes and possible Liver Palliative care services/treatment (Accepted, as consult): accepted Case discussed with referring provider: family meeting tomorrow to discuss next steps Palliative Assessment Advanced Directive - Current Admission Advance Directive: Advance Directive ON ADMISSION - REFERENCE 3 Which Advance Directives None 03/15/25 11:29 documents are scanned in? Do you have a Healthcare No 03/15/25 11:29 Living Will? Do you have a Healthcare Power No 03/15/25 03:50 of Cable Supervisor? Do You Want Additional Yes 03/15/25 11:29 Information on Advanced Directives or Healthcare Proxy/DPOA comments: jaden Mays Symptoms Dyspnea symptoms: Moderate Fatigue symptoms: Moderate Weakness symptoms: Moderate Confusion symptoms: Moderate Impression & Recommendations Impressions Impressions: pt would benefit from hospice services Recommentation Palliative recommendations: recommend a minimum of outpatient palliative or hospice Encouter Achieved as a result of this Palliative Care Encounter: [ [id number], [id number]] minutes were spent in total for this visit which consisted, primarily of counseling and education dealing with the complex and emotionally intense issues of symptom management and palliative care in the setting of serious and potentially life-threatening illness. Review of documentation, labs and radiological studies. ?Patient/family had the opportunity to ask questions Plan (1) Metastatic lung cancer (metastasis from lung to other site): QUALIFIERS: Laterality: unspecified laterality Qualified Code(s): C34.90 - Malignant neoplasm of unspecified part of unspecified bronchus or lung PLAN: *family requesting weigh in from oncology prior to making any further decisions (2) Elevated liver enzymes: (3) IDA (acute kidney injury): (4) Adult failure to thrive: (5) Palliative care encounter: PLAN: * change of code status to DNRCC-A no intubation * recommended outpatient hospice *family meeting tomorrow at 1100 (6) Goals of care, counseling/discussion: PLAN: *wants to find out what options they have left, given current prognosis ROS ROS Narrative limited RT mental status Review of Systems ROS Unobtainable: due to encephalopathy, due to mental condition and due to mental status Constitutional Constitutional: Reports lethargy, malaise and other Details: Positive fatigue ; Denies chills or fever(s) Eyes Eyes: Reports as per HPI; Denies change in vision ENT HEENT: Reports as per HPI; Denies sore throat Cardiovascular Cardiovascular: Reports dyspnea, dyspnea at rest, fatigue and other Details: Negative syncope ; Denies chest pain, palpitations or racing heartbeat Respiratory/Chest Respiratory/Chest: Reports cough and dyspnea Gastrointestinal Gastrointestinal: Reports systems reviewed and no addt'l complaints, except as documented and diarrhea; Denies abdominal pain, nausea or vomiting Genitourinary Genitourinary: Reports systems reviewed and no addt'l complaints, except as documented; Denies dysuria Musculoskeletal Musculoskeletal: Reports as per HPI; Denies neck pain Integumentary Integumentary: Reports as per HPI; Denies rash Neurologic Neurologic: Reports as per HPI and weakness; Denies headache(s) Psychiatric Psychiatric: Reports as per HPI Endocrine Endocrinology: Reports as per HPI Hematologic/Lymphatic Hematologic/Lymphatic: Reports as per HPI; Denies easy bleeding or easy bruising Allergic/Immunologic Allergic/Immunologic: Reports as per HPI
--- NOTE | 2025-03-16 15:16 | CASEMGMT ---
Discharge Planning A list of?SNF providers including quality and resource use data and consistent with the patient's preferred geographic region, medical needs, and insurance network was created in [employer] Guide.? This list was provided to the SW. Mag Lugo Discharge Planning Asst.
--- NOTE | 2025-03-16 15:56 | CASEMGMT ---
Social Work Pt is presenting with confusion. Phone call to pt spouse Sherif to complete assessment. SW?introduced self and role at [facility].? Sherif voices understanding and consents to?assessment.? Care providers, pharmacy, and demographics verified. PCP: Moriah Mott Specialists: Angel/Shaila- oncologist, Angela Fang - pulmonology Preferred Pharmacy: [facility] Insurance: Medicare Living Will/HPOA:? Pt's reports pt has not completed. Due to confusion, documents cannot be completed LNOK: Sherif, Son Davon, Sister in law Sweetie and Niece Oksana Living Arrangements: Pt lives in a two story home with first floor setup and 3 steps to enter the home. Pt lives with her spouse. Pt was diagnosed with cancer at the end of 2023 and has been receiving treatments since that time. Sherif states that recently pt has needed more assistance with ADLS and she has become very weak and cannot care for herself. Sweetie and Oksana assist with bathing and Sherif assists with dressing. Sherif states that he is on oxygen and not very strong himself and expresses concerns with caring for pt at home. Sherif states that he does not prepare meals and they eat frozen meals or Oksana provides some food. Transportation:? Pt spous or other family members provide transportation DME: ? shower chair, walker, bedside commode HHC/SNF: Pt was in to process of getting set up with home health care. Pt's spouse thinks this was [facility] but is uncertain. PLAN: Pt's does not feel he can provide care for pt at home. Sherif inquiring about nursing facility placement. SAMUEL explained Skilled level of care and Medicare coverage and also private pay and LTC if pt is not able to complete therapy. SAMUEL also spoke with pt's spouse about possibly applying for Medicaid if private pay is not possible. Meeting scheduled with Palliative Medicine tomorrow to discuss possible hospice care. SAMUEL will followup with pt tomorrow after Palliative meeting to continue with discharge planning. JOEY Aleman
[2025-03-17 04:09] VITALS: BP 114/56; PULSE 93; RESP 18; TEMP 36.4; O2SAT 94
[2025-03-17 05:52] LABS: Hematocrit 30.4 % (37-47); Hemoglobin 10.1 g/dL (12.0-15.0); Mean Corp Hgb Conc 33.2 g/dL (32-36); Mean Corpuscular Volume 90.5 fL (81-99); Mean Platelet Vol. 13.3 fl (6.2-12.0); POSITIVE COUNT YES; POSITIVE MORPHOLOGY YES; RBC Distribution Width CV 14.1 % (11.6-14.6); RBC Distribution Width SD 46.7 fl (35.1-43.9); Red Blood Count 3.36 M/mm3 (4.2-5.4); White Blood Count 4.9 K/mm3 (4.4-11.0)
[2025-03-17 06:05] LABS: Platelet Count 49 K/mm3 (150-450)
[2025-03-17 06:06] LABS: Differential Indicated MANUAL DIFF
[2025-03-17 07:07] LABS: Anion Gap 17 (5-15); BUN 27 mg/dL (4-19); BUN/Creat Ratio 26.0 RATIO (10-20); Calcium,Total 9.9 mg/dL (7.6-11.0); Carbon Dioxide 18.7 mmol/L (21.0-32.0); Chloride 102 mmol/L (98-108); Estimated Creatinine Clearance 54.41 ml/min (50-250); Glucose 123 mg/dL (70-99); Potassium 4.3 mmol/L (3.3-5.1)
[2025-03-17 07:41] LABS: Neutrophil-Band 1 % (0-5); Neutrophil-Segmented 62 % (47-70); Total Cells Counted 100 (MANUAL DIFF)
[2025-03-17 07:45] LABS: Hypochromasia 1+
[2025-03-17 07:46] LABS: Anisocytosis 1+
--- NOTE | 2025-03-17 08:15 | PN.HOSP_ITS ---
Reason for Visit Chief Complaint: Generalized weakness Subjective Subjective Patient seen, MRI of the brain obtained the day prior did not show any abnormality. Underwent CT-guided biopsy. Plan is for family meeting to discuss goals of care moving forward. Objective Data Objective Data Vital Signs: Vital Signs Temp Pulse Resp BP Pulse Ox O2 Del Method O2 Flow Rate 97.6 F L 93 18 114/56 L 94 Nasal Cannula 2 03/17/25 04:09 03/17/25 04:09 03/17/25 04:09 03/17/25 04:09 03/17/25 04:09 03/17/25 04:26 03/17/25 04:26 Oxygen Flow Rate (L/min) 2 Oxygen Delivery Method Nasal Cannula Weight: 87.5 kg Body Mass Index (BMI) 35.1 Intake & Output: Intake and Output for Last 24 Hours 03/15/25 03/16/25 03/17/25 23:59 23:59 23:59 Intake Total 2400 / 2400 1701.5 / 1701.5 Output Total 1100 / 1100 900 / 900 100 / 100 Balance 1300 / 1300 801.5 / 801.5 -100 / -100 Lab / Micro Data 03/17/25 04:47 03/17/25 04:47 Labs: Laboratory Results - last 24 hr 03/16/25 13:39: POC Glucose 101 03/16/25 16:58: POC Glucose 116 H 03/16/25 22:04: POC Glucose 118 H 03/17/25 04:47: WBC 4.9, RBC 3.36 L, Hgb 10.1 L, Hct 30.4 L, MCV 90.5, MCH 30.1, MCHC 33.2, RDW Std Deviation 46.7 H, RDW Coeff of Jose Manuel 14.1, Plt Count 49 L*, MPV 13.3 H, Neut % (Auto) Not Reportable, Absolute Neuts (auto) 3.1, Absolute Lymphs (auto) 1.32, Total Counted 100, Neutrophils % (Manual) 62, Band Neutrophils % 1, Lymphocytes % (Manual) 27, Monocytes % (Manual) 6, Basophils % (Manual) 3 H, B last Cells % 1 H*, Diff Path Review September, Platelet Estimate MKD DEC, Hypochromasia 1+, Anisocytosis 1+, Sodium 138, Potassium 4.3, Chloride 102, C arbon Dioxide 18.7 L, Anion Gap 17 H, BUN 27 H, Creatinine 1.03, Estim Creat Clear Calc 54.41, Est GFR (MDRD) Non-Af 58 L, BUN/Creatinine Ratio 26.0 H, G lucose 123 H, Calcium 9.9 03/17/25 06:34: POC Glucose 116 H Radiography Diagnostic Testing: Radiology Impression Brain MRI 03/16/25 08:34 IMPRESSION: No acute intracranial abnormality. Reading Location: [id number] Biopsy CT 03/16/25 09:00 IMPRESSION: Successful CT-guided core biopsies of the right lobe of the liver as described. The patient tolerated the procedure well. No immediate complication noted. Reading Location: [facility] Physical Exam Narrative GENERAL: Somewhat lethargic HEENT: Atraumatic; normocephalic EYES; Anicteric, Normal Conjunctiva NECK; supple, normal thyroid, RESPIRATORY: Diminished to auscultation CARDIOVASCULAR: Regular S1 S2, GI: soft, normoactive bowel sounds, : No Renal angle tenderness; EXTREMITIES: No edema, no clubbing, MUSCULOSKELETAL: no muscle wasting NEURO: Awake; no lateralizing signs. SKIN: No Rash PSYCH; Flat affect Assessment & Plan Assessment/Plan (1) Adult failure to thrive: (2) IDA (acute kidney injury): (3) Acute metabolic encephalopathy: PLAN: Plan Patient is a 71-year-old female with history of small cell lung CA with regional lymph nodes metastasis presented to the emergency department with progressive generalized weakness 1. Adult failure to thrive ? 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 03/17/2025; family meeting planned for this a.m. to discuss goals of care 2. Acute kidney injury ?Patient's creatinine from 03/02/2025 was 0.83 creatinine on admission was 1.50 patient admitted to regular nursing floor started on IV fluids with subsequent monitoring of electrolytes ordered to assess response to therapy. Also ordered renal ultrasound to rule out obstructive uropathy. Will avoid potential nephrotoxic medications ? 03/17/2025; IDA resolved 3. Acute metabolic encephalopathy ? Secondary to above do expect improvement with treatment of the underlying etiology ? 03/16/2025; ordered MRI of the brain with contrast to evaluate for possible mets ? 03/17/2025; patient level of sensorium waxes and wanes. MRI was however negative for mets 4.. Metastatic lung CA ? Treated with chemoradiation currently on maintenance therapy with Durvalumab CT of the abdomen and pelvis obtained did show Multiple pulmonary nodules as seen in the lung bases.Soft tissue mass in the anterior aspect of the left pericardium. Multiple liver metastasis and new right adrenal mass. Patient is followed by oncology as outpatient. Also did place a consult for palliative care to discuss goals of care ? 03/16/2025 Case was discussed with Dr. Merlos with oncology recommended for patient to undergo biopsy of 1 of lesion and subsequently ordered CT-guided biopsy of her liver lesions. Also ordered MRI of the brain with contrast to evaluate for possible brain mets given patient being encephalopathic at the time of admission ? 03/17/2025; patient underwent CT-guided biopsy the day prior. 5. Abnormal LFTs ? Secondary to liver mets monitoring with daily LFTs 6. Diabetes mellitus type II -patient's oral hypoglycemics held. Placed on long acting insulin, Accu-Cheks a.c. and at bedtime and covered with sliding scale insulin 7. Dyslipidemia ?Patient is on statin therapy, continued at home dose 8. GERD ? On PPI 9. Hypothyroidism ? Patient is on levothyroxine, patient TSH was however markedly elevated at 16.9?? Compliance 10.Thrombocytopenia ? Suspected to be secondary to chemo induced thrombocytopenia monitoring versus daily CBC with 11. COPD ? Currently not in exacerbation, bronchodilator treatment as needed 12. Obstructive sleep apnea ? On CPAP at night 13. DVT prophylaxis ? SCDs only given patient low platelet count Time spent in the patient's overall evaluation,decision-making process, review of diagnostic data, adjustment of management, discussion with other providers, nursing nursing and ancillary staff involved in patient's care documentation,38 minutes 03/16/2025; CODE STATUS changed to DNR CC without intubation following evaluation by palliative care Charges/Coding Visit Charges Inpatient E&M: 18941 Subs Hosp L2
[2025-03-17 08:28] VITALS: O2SAT 94
[2025-03-17 09:15] VITALS: BP 112/70; PULSE 97; RESP 20; TEMP 36.7; O2SAT 95
--- NOTE | 2025-03-17 10:42 | PCM.PN.PAL ---
Subjective Subjective 03/17/25: Prior to meeting with the patient at bedside I reviewed documentation labs and radiological studies. I then met with the family, and the patient at bedside in her room. Patient's POA son, Chalo was on speaker phone, Makayla was present as well as the patient's niece and sister. Nephew was also on the phone. They were in agreement that the patient should go with hospice and having difficulty determining location. They are hopeful that the patient will qualify for the IPU because they feel that caring for the patient at home would be difficult to arrange all of the family so that she has 24/7 care. Chalo lives in [place] and is unable to provide much care for his mother. Currently the patient is very restless and is wanting to return home. They would like me to place a consult to [facility] which I did speak with social work to make the referral. I did place orders for comfort care per Dr. Garcia. Family was all in agreement that they would like comfort measures initiated immediately. Will await word from [facility] if patient qualifies for the inpatient unit. Currently her palliative performance scale is 20% and her PPI is 14 (if PPI is greater than 6.0, life expectancy is less than 3 weeks.) From a financial standpoint, the family does not feel that intermediate placement with hospice services would be manageable. I did send an email to [facility] to update them on the family's request. I also spoke with social work for them to send the referral over. I then updated family that [facility] is beginning to review the patient's case and will hopefully get in touch with them today. All questions were answered. Orders were placed for comfort care. 03/16/25: Prior to meeting with the patient at bedside, I reviewed labs, documentation d radiological studies. I then met with Andrea in her room. She has just returned from having her biopsy and continues to be very groggy. Niece, Oksana is in the room. She is aware of the her Aunts current situation and was present yesterday for my phone conversation with Andrea's , Makayla. She did discuss family dynamics and the fact that they all know that Andrea is tired. I then contacted son/POChalo Lam to update him on his mothers current status, CT scans and biopsy that was just completed. He states understanding that his mother is very confused and is considering the possibility of hospice. He was able to confirm availability at 1100am tomorrow for family meeting. I then contacted the pts , Makayla. He is also available for a family meeting. He is also considering hospice but wants to know the options as he is uncertain of resources for family assistance at home. He is wondering if the private insurance would cover any of the cost of a nursing facility, if needed. I did state that I would touch base with CM/SW to discuss concerns and have answers for them at the meeting tomorrow. All questions were answered. 03/15/25:Prior to meeting with the patient at bedside I reviewed documentation labs and radiological studies. I then met with the patient, Agustín at bedside. I introduced myself and the concept of palliative care in which she voluntarily excepted our services. Andrea did have intermittent bouts of confusion in which she stated it was okay for me to contact her to go update him. We briefly discussed the patient's goals of care in which she stated that she would like me to contact from. We also discussed CODE STATUS in which she did indicate that she would not want CPR or to be placed on life support but she did state that she would like me to contact Makayla to confirm. Makayla did endorse DNRCC-A no intubation. Pt is alert and oriented to person and place as hospital and she was able to tell me that the year was 2024. She did have difficulty getting her words out. I then called Makayla at home in which there was a nurse from home health care doing his admission for home health. She was helpful in speaking to Makayla. Patient's niece was also there, Oksana who was involved in the conversation. We did discuss goals of care going forward and the possibility of, at the very least, the patient receiving palliative care services in which they did state that they were open to. They did state that they do not want to consider hospice quite yet as they would like this to have oncology weigh in prior to making that decision. I did update Dr. Girard about family request. He states he does plan to perform an MRI, once kidney function has improved. ALl questions were answered. Palliative care will continue to follow for goals of care as clinical picture evolves. per Dr. 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 Per patient both she and her had been down with an upper respiratory tract infection suspected to be viral seen in the ED almost 2 weeks prior to her admission. She has since experienced progressive generalized weakness and apparently fell on the morning of her presentation. The EMS squad was called patient was found laying on the floor. Initial assessment was that patient was confused however patient has lasted the patient was at her baseline. Was transferred to the ED found to be in acute kidney injury admitted as a case of adult failure to thrive to regular nursing floor Objective Data Objective Data Vital Signs: Vital Signs Temp Pulse Resp BP Pulse Ox O2 Del Method O2 Flow Rate 98.1 F 97 20 H 112/70 95 Nasal Cannula 3 03/17/25 09:15 03/17/25 09:15 03/17/25 09:15 03/17/25 09:15 03/17/25 09:15 03/17/25 09:15 03/17/25 09:15 Oxygen Flow Rate (L/min) 3 Oxygen Delivery Method Nasal Cannula Weight: 192 lb 14.472 oz Body Mass Index (BMI) 35.1 Intake & Output: Intake and Output for Last 24 Hours 03/15/25 03/16/25 03/17/25 23:59 23:59 23:59 Intake Total 2400 / 2400 1701.5 / 1701.5 Output Total 1100 / 1100 900 / 900 100 / 100 Balance 1300 / 1300 801.5 / 801.5 -100 / -100 Lab / Micro Data Attestation: I reviewed the patient's lab results. Lab results narrative: significant drop in plt to 49. Pt does have blasts in CBC with diff 03/17/25 04:47 03/17/25 04:47 Labs: Laboratory Results - last 24 hr 03/16/25 13:39: POC Glucose 101 03/16/25 16:58: POC Glucose 116 H 03/16/25 22:04: POC Glucose 118 H 03/17/25 04:47: WBC 4.9, RBC 3.36 L, Hgb 10.1 L, Hct 30.4 L, MCV 90.5, MCH 30.1, MCHC 33.2, RDW Std Deviation 46.7 H, RDW Coeff of Jose Manuel 14.1, Plt Count 49 L*, MPV 13.3 H, Neut % (Auto) Not Reportable, Absolute Neuts (auto) 3.1, Absolute Lymphs (auto) 1.32, Total Counted 100, Neutrophils % (Manual) 62, Band Neutrophils % 1, Lymphocytes % (Manual) 27, Monocytes % (Manual) 6, Basophils % (Manual) 3 H, Blast Cells % 1 H*, Diff Path Review May foll, Platelet Estimate MKD DEC, Hypochromasia 1+, Anisocytosis 1+, Sodium 138, Potassium 4.3, Chloride 102, Carbon Dioxide 18.7 L, Anion Gap 17 H, BUN 27 H, Creatinine 1.03, Estim Creat Clear Calc 54.41, Est GFR (MDRD) Non-Af 58 L, BUN/Creatinine Ratio 26.0 H, Glucose 123 H, Calcium 9.9 03/17/25 06:34: POC Glucose 116 H Micro: Microbiology 03/15/25 05:30 Urine, Clean Catch Urine Culture - Final Culture exhibits no growth. Radiography Diagnostic Testing: Radiology Impression Brain MRI 03/16/25 08:34 IMPRESSION: No acute intracranial abnormality. Reading Location: [address] Physical Exam Const alert Constitutional Narrative: Significantly confused. General Appearance: other restless Orientation / Consciousness: awake and confused HEENT normocephalic Lymph Lymphatic: lymphedema Chest Chest Narrative: R chest port Resp Resp Narrative: on O2 @3 liters Effort and Inspection: tachypneic Auscultation: diminished lung sounds GI normal to inspection, nondistended, normoactive bowel sounds Palpation: soft Narrative: lincoln cath in place Extremity General Extremity: edema Skin no rashes or lesions noted Neuro Sensorium / Orientation: awake Psych Memory / Cognition: cognition grossly impaired Insight: poor Judgement: poor Charges/Coding Palliative Care Palliative Care: [id number] Follow up 50+ min Consulation Summary Current admission Current Code Status: DNRCC-A no intubation Associated Diagnosis: metastatic lung CA to liver, adrenal and mediastinal lymph nodes Consult Data Date of Consult: 03/15/25 Location of consult: PCU Reason for referral: GOC, ode status Referral source: Physician Palliative care diagnosis (Summary list): Metastatic small call lung CA with mets to lymph nodes and possible Liver Palliative care services/treatment (Accepted, as consult): accepted Case discussed with referring provider: goals of care and results of family meeting Palliative Assessment Advanced Directive - Current Admission Advance Directive: Advance Directive ON ADMISSION - REFERENCE Which Advance Directives None 03/15/25 11:29 documents are scanned in? Do you have a Healthcare No 03/15/25 11:29 Living Will? Do you have a Healthcare Power No 03/15/25 03:50 of Fitness Director? Do You Want Additional Yes 03/15/25 11:29 Information on Advanced Directives or Healthcare Proxy/DPOA comments: chalo, son Symptoms Dyspnea symptoms: Moderate Fatigue symptoms: Moderate Weakness symptoms: Severe Confusion symptoms: Severe Impression & Recommendations Impressions Impressions: with pts continued encephalopathy and advancing CA despite aggressive medical mgmt, pt would be a candidate for hopsice. Recommentation Palliative recommendations: recommend a minimum of outpatient palliative or hospice Encouter Achieved as a result of this Palliative Care Encounter: [[id number], [phone] ] minutes were spent in total for this visit which consisted, primarily of counseling and education dealing with the complex and emotionally intense issues of symptom management and palliative care in the setting of serious and potentially life-threatening illness. Review of documentation, labs and radiological studies. ?Patient/family had the opportunity to ask questions Plan (1) Metastatic lung cancer (metastasis from lung to other site): QUALIFIERS: Laterality: unspecified laterality Qualified Code(s): C34.90 - Malignant neoplasm of unspecified part of unspecified bronchus or lung PLAN: *family requesting weigh in from oncology prior to making any further decisions (2) Elevated liver enzymes: PLAN: med mgmt per IDT (3) IDA (acute kidney injury): PLAN: med mgmt per IDT (4) Adult failure to thrive: PLAN: med mgmt per IDT (5) Palliative care encounter: PLAN: * change of code status to DNRCC-A no intubation * recommended outpatient hospice *family meeting at 1100 decided on IPU for hospice *update sent to IPU (6) Goals of care, counseling/discussion: PLAN: *comort care orders placed ROS ROS Narrative limited RT mental status Review of Systems ROS Unobtainable: due to encephalopathy, due to endotracheal tube, due to mental condition, due to mental status and other Constitutional Constitutional: Reports lethargy, malaise and other Details: Positive fatigue ; Denies chills or fever(s) Eyes Eyes: Reports as per HPI; Denies change in vision ENT HEENT: Reports as per HPI; Denies sore throat Cardiovascular Cardiovascular: Reports dyspnea, dyspnea at rest, fatigue and other Details: Negative syncope ; Denies chest pain, palpitations or racing heartbeat Respiratory/Chest Respiratory/Chest: Reports cough and dyspnea Gastrointestinal Gastrointestinal: Reports systems reviewed and no addt'l complaints, except as documented and diarrhea; Denies abdominal pain, nausea or vomiting Genitourinary Genitourinary: Reports systems reviewed and no addt'l complaints, except as documented; Denies dysuria Musculoskeletal Musculoskeletal: Reports as per HPI; Denies neck pain Integumentary Integumentary: Reports as per HPI; Denies rash Neurologic Neurologic: Reports as per HPI and weakness; Denies headache(s) Psychiatric Psychiatric: Reports as per HPI Endocrine Endocrinology: Reports as per HPI Hematologic/Lymphatic Hematologic/Lymphatic: Reports as per HPI; Denies easy bleeding or easy bruising Allergic/Immunologic Allergic/Immunologic: Reports as per HPI
--- NOTE | 2025-03-17 11:50 | CASEMGMT ---
Addendum entered by Hannah Hollis 03/17/25 12:41: Social Work Secure email received from [facility]. Janice has spoke with pt's niece Oksana and pt's son Davon. Hospice to meet with pt and family within the next hour. Nursing and physician updated. JOEY Mirza Original Note: Social Work SW notified by Palliative Care THIRD GRADE TEACHER that pt's family has requested hospice care and would like pt assessed for the inpatient unit. SW met with pt's spouse Sherif and pt's niece Oksana. Emotional support provided to Sherif. Sherif and Oksana agreeable to hospice consult and would like to use [facility] and confirms IPU request. Oksana agreeable to take phone call from Hospice to schedule appointment and will make sure pt's Sherif and pt's son are made aware of appointment time and present in pt room. Referral sent to [facility] via secure email. SW will await return message from [facility] with appointment time. JOEY Mirza
[2025-03-17] MEDS: 0.9% Saline Lock 10 ML Syringe IV ×3 (12:10→16:12)
--- NOTE | 2025-03-17 14:00 | DS.PCM_ITS ---
Providers Date of Admission: 03/15/25 Date of Discharge: 03/17/25 Primary Care Physician: ANNETTE Willis Consultations 03/15/25 11:16 Consult: Inpatient Palliative Care Routine Consulting Provider: Megan Gray Reason for Consult: Goals of care EMERGENT Consult: No MD Notified: Yes Date Notified: 03/15/25 Time Notified: 11:22 Method of Notification: Text 03/17/25 11:30 Consult: Hospice / Outpatient Palliative Care Routine Consulting Provider: [facility] Reason for Consult: metastatic lung CA with mets to liver and adrenals. Confusion, restless EMERGENT Consult: Yes MD Notified: Yes Date Notified: 03/17/25 Time Notified: 11:30 Method of Notification: Verbal Reason For Visit: ADULT FAILURE TO THRIVE, ACUTE RENAL FAILURE Diagnosis Discharge Diagnosis (1) Metastatic lung cancer (metastasis from lung to other site): Status: Acute Code(s): C34.90 - Malignant neoplasm of unspecified part of unspecified bronchus or lung Qualifiers: Laterality: unspecified laterality Qualified Code(s): C34.90 - Malignant neoplasm of unspecified part of unspecified bronchus or lung (2) Elevated liver enzymes: Status: Acute Code(s): R74.8 - Abnormal levels of other serum enzymes (3) IDA (acute kidney injury): Status: Acute Code(s): N17.9 - Acute kidney failure, unspecified (4) Adult failure to thrive: Status: Acute Code(s): R62.7 - Adult failure to thrive (5) Palliative care encounter: Status: Acute Code(s): Z51.5 - Encounter for palliative care (6) Goals of care, counseling/discussion: Status: Acute Code(s): Z71.89 - Other specified counseling Plan Patient is a 71-year-old female with history of small cell lung CA with regional lymph nodes metastasis presented to the emergency department with progressive generalized weakness 1. Adult failure to thrive ? 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 03/17/2025; family meeting planned for this a.m. to discuss goals of care 2. Acute kidney injury ?Patient's creatinine from 03/02/2025 was 0.83 creatinine on admission was 1.50 patient admitted to regular nursing floor started on IV fluids with subsequent monitoring of electrolytes ordered to assess response to therapy. Also ordered renal ultrasound to rule out obstructive uropathy. Will avoid potential nephrotoxic medications ? 03/17/2025; IDA resolved 3. Acute metabolic encephalopathy ? Secondary to above do expect improvement with treatment of the underlying etiology ? 03/16/2025; ordered MRI of the brain with contrast to evaluate for possible mets ? 03/17/2025; patient level of sensorium waxes and wanes. MRI was however negative for mets 4.. Metastatic lung CA ? Treated with chemoradiation currently on maintenance therapy with Durvalumab CT of the abdomen and pelvis obtained did show Multiple pulmonary nodules as seen in the lung bases.Soft tissue mass in the anterior aspect of the left pericardium. Multiple liver metastasis and new right adrenal mass. Patient is followed by oncology as outpatient. Also did place a consult for palliative care to discuss goals of care ? 03/16/2025 Case was discussed with Dr. Merlos with oncology recommended for patient to undergo biopsy of 1 of lesion and subsequently ordered CT-guided biopsy of her liver lesions. Also ordered MRI of the brain with contrast to evaluate for possible brain mets given patient being encephalopathic at the time of admission ? 03/17/2025; patient underwent CT-guided biopsy the day prior. ? Patient was assessed by the hospice service accepted for transfer to hospice in the medical facility 5. Abnormal LFTs ? Secondary to liver mets monitoring with daily LFTs 6. Diabetes mellitus type II -patient's oral hypoglycemics held. Placed on long acting insulin, Accu-Cheks a.c. and at bedtime and covered with sliding scale insulin 7. Dyslipidemia ?Patient is on statin therapy, continued at home dose 8. GERD ? On PPI 9. Hypothyroidism ? Patient is on levothyroxine, patient TSH was however markedly elevated at 16.9?? Compliance 10.Thrombocytopenia ? Suspected to be secondary to chemo induced thrombocytopenia monitoring versus daily CBC with 11. COPD ? Currently not in exacerbation, bronchodilator treatment as needed 12. Obstructive sleep apnea ? On CPAP at night 13. DVT prophylaxis ? SCDs only given patient low platelet count Time spent in the patient's overall evaluation,decision-making process, review of diagnostic data, adjustment of management, discussion with other providers, nursing nursing and ancillary staff involved in patient's care documentation,38 minutes 03/16/2025; CODE STATUS changed to DNR CC without intubation following evaluation by palliative care Medications at Discharge Home Medications lovastatin 40 mg tablet 40 mg PO QHS hld 11/25/13 cholecalciferol (vitamin D3) 125 mcg (5,000 unit) capsule 5,000 unit PO DAILY supplement 06/25/23 levothyroxine 100 mcg tablet 100 mcg PO DAILY thyroid 06/25/23 metformin 1,000 mg tablet 1,000 mg PO BID dm 06/25/23 omeprazole 20 mg capsule,delayed release 20 mg PO QDAY stomach 08/30/24 L.acidophil,salivari-Bifido bifidum-Strep thermoph 175 mg capsule 1 cap PO BID bowel 11/04/24 BIPAP -Bilevel Positive Airway Pressure ([facility] INFORMATIONAL USE ONLY) 02/24/25 albuterol sulfate 90 mcg/actuation aerosol inhaler (Ventolin HFA) 2 puff inhalation Q6H PRN asthma 03/15/25 methylprednisolone 4 mg tablets in a dose pack PO UD respiratory virus 03/15/25 Physical Exam Narrative GENERAL: Somewhat lethargic HEENT: Atraumatic; normocephalic EYES; Anicteric, Normal Conjunctiva NECK; supple, normal thyroid, RESPIRATORY: Diminished to auscultation CARDIOVASCULAR: Regular S1 S2, GI: soft, normoactive bowel sounds, : No Renal angle tenderness; EXTREMITIES: No edema, no clubbing, MUSCULOSKELETAL: no muscle wasting NEURO: Awake; no lateralizing signs. SKIN: No Rash PSYCH; Flat affect Weight / BMI Weight Weight: 87.5 kg Body Mass Index (BMI) 35.1 ABG / Lab / Microbiology Data 03/17/25 04:47 03/17/25 04:47 Laboratory: Laboratory Results - last 24 hr 03/16/25 13:39: POC Glucose 101 03/16/25 16:58: POC Glucose 116 H 03/16/25 22:04: POC Glucose 118 H 03/17/25 04:47: WBC 4.9, RBC 3.36 L, Hgb 10.1 L, Hct 30.4 L, MCV 90.5, MCH 30.1, MCHC 33.2, RDW Std Deviation 46.7 H, RDW Coeff of Jose Manuel 14.1, Plt Count 49 L*, MPV 13.3 H, Neut % (Auto) Not Reportable, Absolute Neuts (auto) 3.1, Absolute Lymphs (auto) 1.32, Total Counted 100, Neutrophils % (Manual) 62, Band Neutrophils % 1, Lymphocytes % (Manual) 27, Monocytes % (Manual) 6, Basophils % (Manual) 3 H, B last Cells % 1 H*, Diff Path Review Reviewed, Platelet Estimate MKD DEC, Hypochromasia 1+, Anisocytosis 1+, Sodium 138, Potassium 4.3, Chloride 102, C arbon Dioxide 18.7 L, Anion Gap 17 H, BUN 27 H, Creatinine 1.03, Estim Creat Clear Calc 54.41, Est GFR (MDRD) Non-Af 58 L, BUN/Creatinine Ratio 26.0 H, G lucose 123 H, Calcium 9.9 03/17/25 06:34: POC Glucose 116 H Microbiology: Microbiology 03/15/25 05:30 Urine, Clean Catch Urine Culture - Final Culture exhibits no growth. D/C Instructions DC O2, CPAP, BIPAP Needs Home O2 Discharge instructions: No Meaningful Use Info Meaningful Use Meaningful Use Diagnoses (Choose all that apply): None applicable Discharge Plan Admission Admit Date/Time: 03/15/25 10:27 Attending Provider: Jacoby Girard Primary Care Provider: Moriah Mott Consulting Providers: Megan Gray; Jacoby Lerner; Loren Mccarthy; Carmen Pereyra; Kathy Hoang; Inna Siddiqui ERGONOMICS CONSULTANT; Sweetie Franco Discharge Orders/Prescriptions Prescriptions: No Action cholecalciferol (vitamin D3) 125 mcg (5,000 unit) capsule 5,000 unit PO DAILY levothyroxine 100 mcg tablet 100 mcg PO DAILY Patient Comments: TAKE 1 TABLET BY MOUTH EVERY DAY metformin 1,000 mg tablet 1,000 mg PO BID Patient Comments: 1000mg morning 500mg at night omeprazole 20 mg capsule,delayed release(DR/EC) 20 mg PO QDAY L.acidoph,saliva-B.bif-S.therm 175 mg capsule 1 cap PO BID Rx Instructions: Probiotic [id number]-edi-dwkqiai lovastatin 40 MG tablet 40 mg PO QHS Patient Comments: (DME) BIPAP -Bilevel Positive Airway Pressure ([facility] INFORMATIONAL USE ONLY) See Rx Instructions .ROUTE .MEDSUPPLY Rx Instructions: BiPAP DME- [employer] Mask- full face methylprednisolone 4 mg tablets,dose pack PO UD albuterol sulfate [Ventolin HFA] 90 mcg/actuation HFA aerosol inhaler 2 puff INHALATION Q6H PRN (Reason: asthma) Referrals / Follow Up: Moriah Mott, ERGONOMICS CONSULTANT-C [Primary Care Provider, Family Practice] Disposition Disposition (needs filled in before D/C Order can be placed): Hospice in Medical Facility Charges/Coding Visit Charges Inpatient E&M: 82125 Disch Hosp >30min
--- NOTE | 2025-03-17 14:02 | CASEMGMT ---
Addendum entered by Hannah Hollis 03/17/25 16:05: Social Work SW called pt family regarding transport time and they are aware and will meet pt at hospice. JOEY Mirza Addendum entered by Hannah Hollis 03/17/25 16:02: Per hospice, worm picker time arranged for 4:00. Nursing notified. JOEY Mirza Original Note: Social Work SW spoke with Janice from [facility]. Pt has been accepted into the I[facility] at [facility] and pt can admit today. Physician, Palliative WELT RANDER and pt nurse updated. Hospice to arranage for tranportation. Disposition: [facility] Inpatient Unit JOEY Mirza
== END 2025-03-17 16:41 | disposition hospice, inpatient (51) | DRG 640 ==
LOC: ED 08:30 → PCU 10:43
PROVIDERS: Radiology Diagnostic Radiology; Admitting Provider Internal Medicine; Emergency Provider Emergency Medicine; PCP Nurse Practitioner Family; Visit Provider Internal Medicine
DX: R62.7 Adult failure to thrive (principal); G93.41 Metabolic encephalopathy; C78.7 Secondary malignant neoplasm of liver and intrahepatic bile duct; N17.9 Acute kidney failure, unspecified; C34.90 Malignant neoplasm of unspecified part of unspecified bronchus or lung; C79.31 Secondary malignant neoplasm of brain; Z66 Do not resuscitate; J44.9 Chronic obstructive pulmonary disease, unspecified; E11.9 Type 2 diabetes mellitus without complications; E03.9 Hypothyroidism, unspecified; Z68.35 Body mass index [BMI] 35.0-35.9, adult; K21.9 Gastro-esophageal reflux disease without esophagitis; G47.33 Obstructive sleep apnea (adult) (pediatric); E27.9 Disorder of adrenal gland, unspecified; E78.5 Hyperlipidemia, unspecified; Z87.891 Personal history of nicotine dependence; Z79.51 Long term (current) use of inhaled steroids; Z79.899 Other long term (current) drug therapy; Z79.84 Long term (current) use of oral hypoglycemic drugs
CPT/HCPCS: 36415; 51702; 70450; 70551; 71250; 72125; 72170; 74177; 76770; 77012; 80048; 80076; 80307; 81001; 82077; 82140; 82550; 82803; 82962; 83735; 83880; 84100; 84443; 85025; 85610; 85730; 87086; 88172; 88307; 88313; 88341; 88342; 92526; 92610; 97162; 97166; 99156; 99285; Q9967; A4216